=== PATIENT | female | born 1930 | race Caucasian/White ===

== ENCOUNTER 2017-04-17 17:34 | Observation (INO) | payer MEDICARE, MEDICAID ==
[~2017-04-17] VITALS: Ht 160 cm; Wt 72.1 kg
[~2017-04-17 17:34] MED LIST: AC500T PO; ATR20T PO; CLPD75T PO; CPR500T PO; IBP600T1 PO; NYST1POW15 TOP; POLY17PO23 PO; QTP25T PO
[2017-04-17 18:04] LABS: BASOPHILS % (AUTO) 0 % (0-10); EOSINOPHILS # (AUTO) 0.1 10^3/uL (0.0-0.3); EOSINOPHILS % (AUTO) 2 % (0-10); LYMPHOCYTES # (AUTO) 1.6 X 10^3 (1.0-4.0); LYMPHOCYTES % (AUTO) 23 % (12-44); MEAN CORPUSCULAR HEMOGLOBIN 29 PG (25-34); MEAN CORPUSCULAR HGB CONC 33 G/DL (32-36); MEAN CORPUSCULAR VOLUME 90 FL (80-99); MEAN PLATELET VOLUME 10.3 FL (7.4-10.4); MONOCYTES # (AUTO) 0.7 X 10^3 (0.0-1.0); MONOCYTES % (AUTO) 10 % (0-12); NEUTROPHILS # (AUTO) 4.7 X 10^3 (1.8-7.8); NEUTROPHILS % (AUTO) 66 % (42-75); PLATELET COUNT 276 10^3/uL (130-400); RED BLOOD COUNT 4.27 10^6/uL (4.35-5.85); WHITE BLOOD COUNT 7.1 10^3/uL (4.3-11.0)
[2017-04-17 18:17] LABS: INR 1.1 (0.8-1.4); PROTHROMBIN TIME PATIENT 13.6 SEC (12.2-14.7)
[2017-04-17 18:25] LABS: ALANINE AMINOTRANSFERASE 12 U/L (0-55); ALBUMIN 3.9 GM/DL (3.2-4.5); ANION GAP 8 MMOL/L (5-14); ASPARTATE AMINO TRANSFERASE 15 U/L (5-34); BILIRUBIN,TOTAL 0.3 MG/DL (0.1-1.0); BLOOD UREA NITROGEN 8 MG/DL (7-18); BUN/CREATININE RATIO 11; CALCIUM 8.9 MG/DL (8.5-10.1); CARBON DIOXIDE 27 MMOL/L (21-32); CHLORIDE 107 MMOL/L (98-107); CREATININE SERUM 0.71 MG/DL (0.60-1.30); GFR ESTIMATED > 60; GLUCOSE 119 MG/DL (70-105); POTASSIUM 3.7 MMOL/L (3.6-5.0); SODIUM 142 MMOL/L (135-145)
--- NOTE | 2017-04-17 18:37 | Diagnostic Imaging Report ---
PROCEDURE: CT head and CT cervical spine without contrast. TECHNIQUE: Multiple contiguous axial images were obtained through the brain and cervical spine without the use of intravenous contrast. Sagittal and coronal reformations through the cervical spine were then performed. INDICATION: Fall, head and neck pain. COMPARISON: Head CT compared 03/04/2012, no prior cervical imaging. FINDINGS: CT HEAD: There is a small right parafalcine hyperdense acute appearing subdural hematoma measuring only 4.6 mm in transverse thickness. It can be seen on images 20 through 24. No resultant mass effect or shift. There was no other site of intracranial hemorrhage. There is some chronic atrophy and periventricular white matter small vessel sequelae which are stable. There is opacification of multiple bilateral mastoid air cells as well as likely some fluid and/or debris within the bilateral middle ear cavities. No visualized temporal bone or calvarial fractures found. This is presumed inflammatory. Correlate clinically as underlying otomastoiditis could not be excluded. There is a lobular mucous retention cyst in the right maxillary sinus. There is no paranasal sinus air-fluid level. No findings of focal or generalized cerebral edema. There is no evidence for elevation of the intracranial pressures. The basilar cisterns are patent. CT CERVICAL SPINE: Reconstruction views revealed normal cervical body heights aligned anatomically. No fracture or dislocation. No acute endplate irregularity. There is no paravertebral hemorrhage. There are degenerative changes to the discs, endplates and facets throughout the cervical spine on a chronic basis. IMPRESSION: CT HEAD: A shallow right parafalcine subdural hematoma without a resultant mass effect. No other site of hemorrhage. Opacification of bilateral mastoid air cells and middle ear cavities with small mucus retention cyst in the right maxillary sinus. No appreciable fracture. CT CERVICAL SPINE: Degenerative changes but no fracture or dislocation. Results phoned to the emergency room. Dictated by: Dictated on workstation # [id number]
[2017-04-17 18:41] LABS: BILIRUBIN,URINE NEGATIVE (NEGATIVE); KETONES,URINE NEGATIVE (NEGATIVE); LEUKOCYTE ESTERASE ,URINE NEGATIVE (NEGATIVE); NITRITE,URINE NEGATIVE (NEGATIVE); PH,URINE 6 (5-9); PROTEIN,URINE NEGATIVE (NEGATIVE); UROBILINOGEN,URINE NORMAL (NORMAL)
[2017-04-17 18:47] LABS: SQUAMOUS EPITHELIAL CELL,UR RARE /HPF
--- NOTE | 2017-04-17 18:51 | Diagnostic Imaging Report ---
INDICATION: Fall, pain. FINDINGS: No fracture, dislocation, or acute articular incongruity is demonstrated. IMPRESSION: No acute bony abnormality. Dictated by: Dictated on workstation # [id number]
--- NOTE | 2017-04-17 18:54 | ED Trauma-Multisystem ---
General Chief Complaint: Trauma-Non Activation Stated Complaint: FALL Nursing Triage Note: PT WAS AT [facility] AND FELL AND HIT HER HEAD PER EMS STAFF. (ALEIDA BROWN) History of Present Illness Time Seen by Provider: 17:30 Initial Comments patient brought by EMS from [facility], [facility]. Evaluation for fall at [facility], she was walking in the [place] when she fell and hit the occipital area on the wall. [facility] staff reports hematoma to this area, no hematoma noted upon arrival to the emergency department. shelter reports no loss of consciousness. However there was an indentation into the wall. The patient had known dementia and the family and care facility had noticed a decline over the last 2 weeks. She had a smaller fall to her knees approximately 2 weeks ago. Location Injury Occurred: [facility] Occurred: Just Prior to Arrival Severity: Mild Pain/Injury Location: Head (occipital), Lower Extremity (left ankle), Neck ( minimal pain) Method of Injury: Fall Loss of Consciousness: No Loss of Consciousness Associated Symptoms (Fall): Denies Symptoms, Confusion (family reports compatible with her dementia), No Headache, No Nausea/Vomiting, No Seizures, No Slurred Speech, No Vision Changes (ALEIDA BROWN) Allergies and Home Medications Allergies Coded Allergies: No Known Drug Allergies (Unverified , 03/02/12) Home Medications Acetaminophen 500 Mg Tablet, 1,000 MG PO Q6H PRN for PAIN-MILD, (Reported) TAKES 2 (500MG) TABLETS Calcium Carbonate/Vitamin D3 1 Each Capsule, 1 CAP PO DAILY, (Reported) Cholecalciferol (Vitamin D3) 1,000 Unit Tablet, 2,000 UNIT PO DAILY, (Reported) TAKES 2 (1000 UNIT) TABLETS Citalopram Hydrobromide 20 Mg Tablet, 20 MG PO DAILY, (Reported) Clopidogrel Bisulfate 75 Mg Tablet, 75 MG PO DAILY, (Reported) Cyanocobalamin (Vitamin B-12) 500 Mcg Tablet, 500 MCG PO DAILY, (Reported) Dextromethorphan HBr 15 Mg/5 Ml Liquid, 10 ML PO Q4H PRN for COUGH, (Reported) Fluticasone Propionate 16 Gm [place].susp, 1 SPRAY NS BID, (Reported) Guaifenesin 400 Mg Tablet, 400 MG PO Q4H PRN for CONGESTION, (Reported) Lorazepam 0.5 Mg Tablet, 0.5 MG PO DAILY, (Reported) Losartan Potassium 50 Mg Tablet, 50 MG PO DAILY for 30 Days, #30 Ref 6 Prescribed by: NICOLE TSANG on 04/18/17 1117 Melatonin 3 Mg Tablet, 6 MG PO HS, (Reported) TAKES 2 (3MG) TABLETS Memantine HCl 10 Mg Tablet, 10 MG PO BID, (Reported) Pantoprazole Sodium 20 Mg Tablet.dr, 20 MG PO DAILY, (Reported) Risperidone 0.25 Mg Tablet, 0.25 MG PO HS, (Reported) Risperidone 0.5 Mg Tablet, 0.5 MG PO Q6H PRN for BEHAVIOR, (Reported) Rivastigmine 9.5 Mg Patch, 9.5 MG TD DAILY, (Reported) Constitutional: no symptoms reported, see HPI Eyes: No Symptoms Reported, See HPI Ears: No Symptoms Reported, See HPI Nose: No Symptoms Reported, See HPI Mouth: No Symptoms Reported, See HPI Throat: No Symptoms to Report, See HPI Respiratory: no symptoms reported, see HPI Cardiovascular: No Symptoms Reported, See HPI Gastrointestinal: no symptoms reported, see HPI Genitourinary: no symptoms reported, see HPI Musculoskeletal: see HPI, joint pain (medial aspect left ankle) Skin: see HPI, other (superficial skin tear right elbow) Psychiatric/Neurological: No Symptoms Reported, See HPI (ALEIDA BROWN) All Other Systems Reviewed Negative Unless Noted: Yes (ALEIDA BROWN) Past Isrbuln-Qmhspj-Kwuugw Hx Patient Social History Alcohol Use: Denies Use Recreational Drug Use: No Smoking Status: Never a Smoker 2nd Hand Smoke Exposure: No Recent Foreign Travel: No Contact w/Someone Who Travel: No Recent Infectious Disease Expo: No Recent Hopitalizations: No (ALEIDA BROWN) Seasonal Allergies Seasonal Allergies: No (ALEIDA BROWN) Surgeries Surgeries: Hysterectomy (ALEIDA BROWN) Respiratory Hx Respiratory Disorders: No (ALEIDA BROWN) Cardiovascular Hx Cardiac Disorders: No Cardiac Disorders: Hypertension (ALEIDA BROWN) Neurological Hx Neurological Disorders: Yes Neurological Disorders: Dementia (ALEIDA BROWN) Reproductive System Hx Reproductive Disorders: Yes (ALEIDA BROWN) Genitourinary Hx Genitourinary Disorders: Yes (ALEIDA BROWN) Gastrointestinal Hx Gastrointestinal Disorders: No (ALEIDA BROWN) Musculoskeletal Hx Musculoskeletal Disorders: No (ALEIDA BROWN) Endocrine Hx Endocrine Disorders: No (ALEIDA BROWN) HEENT HX ENT Disorders: No (ALEIDA BROWN) Psychosocial Hx Psychiatric Problems: No Behavioral Health Disorders: Anxiety, Depression (ALEIDA BROWN) Blood Transfusions Hx Blood Disorders: No (ALEIDA BROWN) Reviewed Nursing Assessment Reviewed/Agree w Nursing PMH: Yes (ALEIDA BROWN) Physical Exam Vital Signs Vital Sign - Last 12Hours 04/17/17 17:34 Temp 98.1 Pulse 70 Resp 14 B/P (MAP) 179/90 Pulse Ox 95 O2 Delivery Room Air Temperature (Fahrenheit): 98.1 General Appearance: No Apparent Distress, WD/WN Head: No Evidence of Injury, Tenderness (occipital, mild, no hematoma or bleeding noted), No Active Bleeding, No Dominguez's Sign, No Contusions, No Ecchymosis, No Swelling Eyes: Bilateral Eye EOMI, Bilateral Eye Normal Inspection, Bilateral Eye PERRL Ears, Nose, Throat: Hearing Grossly Normal, No Evidence of ENT Injury, No Dental Injury Neck: Full Range of Motion, Normal Inspection, Supple, Tender Lateral ( bilaterally) Cardiovascular: Regular Rate, Rhythm, No Edema, No Murmur, Normal Peripheral Pulses Respiratory: Chest Non Tender, Lungs Clear, Normal Breath Sounds Gastrointestinal: Normal Bowel Sounds, Soft Back: Normal Inspection, No Vertebral Tenderness Extremity: Normal Capillary Refill, Normal Inspection, Normal Range of Motion, No Pedal Edema, Other (pelvis stable, full range of motion to the hips, knees and ankles. Trace pain over medial malleolus on the left ankle. No pain with inversion or eversion of the left ankle. No swelling or ecchymosis noted to left ankle.) Neurologic/Psychiatric: Alert, No Oriented x3, No Motor/Sensory Deficits, Normal Mood/Affect (compliant with all request, able to complete simple instructions. No agitation or anxiety noted) Skin: Normal Color, Warm/Dry, Other (superficial skin tear to the right elbow.) (ALEIDA BROWN) [place] Score Best Eye Response ([place]): (4) Open Spontaneously Best Verbal Response ([place]): (4) Confused Conversation Best Motor Response (Brenda): (6) Obeys Commands [place] Total: 14 (ALEIDA BROWN) Progress/Results/Core Measures Results/Orders Lab Results Laboratory Tests Test 04/17/17 17:51 04/17/17 18:34 Range/Units White Blood Count 7.1 4.3-11.0 10^3/uL Red Blood Count 4.27 L 4.35-5.85 10^6/uL Hemoglobin 12.5 11.5-16.0 G/DL Hematocrit 38 35-52 % Mean Corpuscular Volume 90 80-99 FL Mean Corpuscular Hemoglobin 29 25-34 PG Mean Corpuscular Hemoglobin Concent 33 32-36 G/DL Red Cell Distribution Width 14.0 10.0-14.5 % Platelet Count 276 130-400 10^3/uL Mean Platelet Volume 10.3 7.4-10.4 FL Neutrophils (%) (Auto) 66 42-75 % Lymphocytes (%) (Auto) 23 12-44 % Monocytes (%) (Auto) 10 0-12 % Eosinophils (%) (Auto) 2 0-10 % Basophils (%) (Auto) 0 0-10 % Neutrophils # (Auto) 4.7 1.8-7.8 X 10^3 Lymphocytes # (Auto) 1.6 1.0-4.0 X 10^3 Monocytes # (Auto) 0.7 0.0-1.0 X 10^3 Eosinophils # (Auto) 0.1 0.0-0.3 10^3/uL Basophils # (Auto) 0.0 0.0-0.1 10^3/uL Prothrombin Time 13.6 12.2-14.7 SEC INR Comment 1.1 0.8-1.4 Activated Partial Thromboplast Time 25 24-35 SEC Sodium Level 142 135-145 MMOL/L Potassium Level 3.7 3.6-5.0 MMOL/L Chloride Level 107 98-107 MMOL/L Carbon Dioxide Level 27 21-32 MMOL/L Anion Gap 8 5-14 MMOL/L Blood Urea Nitrogen 8 7-18 MG/DL Creatinine 0.71 0.60-1.30 MG/DL Estimat Glomerular Filtration Rate > 60 BUN/Creatinine Ratio 11 Glucose Level 119 H 70-105 MG/DL Calcium Level 8.9 8.5-10.1 MG/DL Total Bilirubin 0.3 0.1-1.0 MG/DL Aspartate Amino Transf (AST/SGOT) 15 5-34 U/L Alanine Aminotransferase (ALT/SGPT) 12 0-55 U/L Alkaline Phosphatase 59 40-136 U/L Total Protein 7.0 6.4-8.2 GM/DL Albumin 3.9 3.2-4.5 GM/DL Urine Color YELLOW Urine Clarity CLEAR Urine pH 6 5-9 Urine Specific [place] 1.015 L 1.016-1.022 Urine Protein NEGATIVE NEGATIVE Urine Glucose (UA) NEGATIVE NEGATIVE Urine Ketones NEGATIVE NEGATIVE Urine Nitrite NEGATIVE NEGATIVE Urine Bilirubin NEGATIVE NEGATIVE Urine Urobilinogen NORMAL NORMAL MG/DL Urine Leukocyte Esterase NEGATIVE NEGATIVE Urine RBC (Auto) NEGATIVE NEGATIVE Urine RBC NONE /HPF Urine WBC NONE /HPF Urine Squamous Epithelial Cells RARE /HPF Urine Crystals NONE /LPF Urine Bacteria NONE /HPF Urine Casts NONE /LPF Urine Mucus NEGATIVE /LPF Urine Culture Indicated NO My Orders Orders - ALEIDA BROWN Ct Head/Cervical Spine Wo (04/17/17 17:44) Ankle, Left, 3 Views (04/17/17 17:44) Cbc With Automated Diff (04/17/17 17:44) Comprehensive Metabolic Panel (04/17/17 17:44) Protime With Inr (04/17/17 17:44) Partial Thromboplastin Time (04/17/17 17:44) Ua Culture If Indicated (04/17/17 17:44) Saline Lock/Iv-Start (04/17/17 19:06) Ns Iv 1000 Ml (Sodium Chloride 0.9%) (04/17/17 19:06) Labetalol Injection (Normodyne Injection (04/17/17 19:15) Ekg Tracing (04/17/17 19:14) Acetaminophen Tablet/Caplet (Tylenol T (04/17/17 19:31) Chest 1 View, Ap/Pa Only (04/17/17 19:46) Hydralazine Injection (Apresoline Inject (04/17/17 20:00) Medications Given in ED Current Medications Medications Dose Ordered Sig/Darwin Route Start Time Stop Time Status Last Admin Dose Admin Hydralazine HCl 20 mg ONCE ONCE IV 04/17/17 20:00 04/17/17 20:01 DC 04/17/17 20:00 20 MG Labetalol HCl 10 mg ONCE ONCE IV 04/17/17 19:15 04/17/17 19:16 DC 04/17/17 19:16 10 MG Sodium Chloride 1,000 ml @ 50 mls/hr Q20H ONCE IV 04/17/17 19:06 04/18/17 15:05 04/17/17 19:17 50 MLS/HR Vital Signs/I&O Vital Sign - Last 12Hours 04/17/17 17:34 Temp 98.1 Pulse 70 Resp 14 B/P (MAP) 179/90 Pulse Ox 95 O2 Delivery Room Air Blood Pressure Mean: 119 (ALEIDA BROWN) Progress Note : Time: 17:30 Progress Note Initial evaluation completed. Recommended CT head and cervical spine, labs, and x-ray of the left ankle. [address] and assessment with Dr. Henao. Agreed with plan of care. 1839 family and POA present discussed findings of CT results, discussed options and care. Options were reviewed with risks and benefits of conservative care versus surgical evacuation of the hematoma. The family wishes to continue with conservative, supportive care at this point. Discussed at length with the patient's daughter son and POA about her CODE STATUS, she is currently a full code. They wish for this to remain in place. Will discuss it at more length tonight and with Dr. Mcneill tomorrow. 1914 B/P 180s/90s, IV NS at 50 ml/hr; Labetalol 10 mg IV, monitor b/p Q 15 min. Patient has reported headache to family, Tylenol 650 mg po. 1919 discussed patient's assessment and CT findings with Dr. Mcneill agreed for admission to cardiac stepdown. 1939 blood pressure continues in the 170s/lower 90s. Hydralazine 20 mg IV 1. 1999 blood pressure 150s/ 70s. He denies headache at present time. All questions answered by family and plans for admission completed. (ALEIDA BROWN) Progress Note : Progress Note Admission to trauma services not indicated as surgical options do not want to be pursued by family and patient has advanced Alzheimer's disease. Patient to be admitted by primary care physician. (SHARITA OSCAR MD) ECG Initial ECG Impression Date: Apr 17, 2017 Initial ECG Impression Time: 19:24 Initial ECG Rate: 70 Initial ECG Rhythm: Normal Sinus (with left ventricular hypertrophy and borderline prolonged QT interval) Initial ECG Intervals: Normal Initial ECG Intervals NM 160, QRS 8100, QTC 452, QTc 488. [place] P 9, QRS -3, T 59. Initial ECG Impression: Normal Initial ECG Comparisson: No Previous ECG Available, Unchanged Comment With Dr. Henao agreed with interpretation (ALEIDA BROWN) Diagnostic Imaging Diagonstic Imaging: CT Plain Films/CT/US/NM/MRI: c-spine, head Comments NAME: RUPALI BOWDEN [facility] REC#: [id number] PT STATUS: REG ER : 1930 PHYSICIAN: ALEIDA BROWN ADMIT DATE: 04/17/17/ER Draft Date of Exam:04/17/17 CT HEAD/CERVICAL SPINE WO PROCEDURE: CT head and CT cervical spine without contrast. TECHNIQUE: Multiple contiguous axial images were obtained through the brain and cervical spine without the use of intravenous contrast. Sagittal and coronal reformations through the cervical spine were then performed. INDICATION: Fall, head and neck pain. COMPARISON: Head CT compared 03/04/2012, no prior cervical imaging. FINDINGS: CT HEAD: There is a small right parafalcine hyperdense acute appearing subdural hematoma measuring only 4.6 mm in transverse thickness. It can be seen on images 20 through 24. No resultant mass effect or shift. There was no other site of intracranial hemorrhage. There is some chronic atrophy and periventricular white matter small vessel sequelae which are stable. There is opacification of multiple bilateral mastoid air cells as well as likely some fluid and/or debris within the bilateral middle ear cavities. No visualized temporal bone or calvarial fractures found. This is presumed inflammatory. Correlate clinically as underlying otomastoiditis could not be excluded. There is a lobular mucous retention cyst in the right maxillary sinus. There is no paranasal sinus air-fluid level. No findings of focal or generalized cerebral edema. There is no evidence for elevation of the intracranial pressures. The basilar cisterns are patent. CT CERVICAL SPINE: Reconstruction views revealed normal cervical body heights aligned anatomically. No fracture or dislocation. No acute endplate irregularity. There is no paravertebral hemorrhage. There are degenerative changes to the discs, endplates and facets throughout the cervical spine on a chronic basis. IMPRESSION: CT HEAD: A shallow right parafalcine subdural hematoma without a resultant mass effect. No other site of hemorrhage. Opacification of bilateral mastoid air cells and middle ear cavities with small mucus retention cyst in the right maxillary sinus. No appreciable fracture. CT CERVICAL SPINE: Degenerative changes but no fracture or dislocation. Results phoned to the emergency room. Dictated on workstation # [id number] Dict: 04/17/17 181 Trans: 04/17/17 183 [id number] Interpreted by: CLAY FLOOD Electronically signed by: Reviewed: Discussed w/Radiologist, Reviewed/Discussed (with Dr. Henao) Diagonstic Imaging: Xray Plain Films/CT/US/NM/MRI: ankle Comments NAME: RUPALI BOWDEN [facility] REC#: [id number] PT STATUS: REG ER : 1930 PHYSICIAN: ALEIDA BROWN ADMIT DATE: 04/17/17/ER Signed Date of Exam: 04/17/17 ANKLE, LEFT, 3 VIEWS INDICATION: Fall, pain. FINDINGS: No fracture, dislocation, or acute articular incongruity is demonstrated. IMPRESSION: No acute bony abnormality. Dictated by: Dictated on workstation # [id number] Dict: 04/17/17 184 Trans: 04/17/171855 Interpreted by: CLAY FLOOD Electronically signed by: CLAY FLOOD 04/17/171855 Diagonstic Imaging: Xray Plain Films/CT/US/NM/MRI: chest Comments NAME: RUPALI BOWDEN [employer] REC#: [id number] PT STATUS: REG ER : 1930 PHYSICIAN: ALEIDA BROWN ADMIT DATE: 04/17/17/ER Draft Date of Exam:04/17/17 CHEST 1 VIEW, AP/PA ONLY INDICATION: Shortness of air. COMPARISON: March 02, 2012. TECHNIQUE: Single frontal radiograph of the chest dated April 17, 2017. FINDINGS: The cardiac silhouette is enlarged. No significant pulmonary vascular congestion. Calcified granulomas are again identified overlying the right mid lung. The lungs otherwise appear clear. Stable elevation of the right hemidiaphragm. No significant pleural effusion. No pneumothorax. No acute osseous abnormality. IMPRESSION: Mild cardiomegaly without overt congestive heart failure. Stable evidence of chronic granulomatous disease. Dictated on workstation # [id number] Dict: 04/17/172000 Trans: 04/17/172008 [id number] Interpreted by: ROSA JUNIOR MD Electronically signed by: Reviewed: Reviewed by Me (ALEIDA BROWN) Departure Impression Impression: Primary Impression: Subdural hematoma, acute Additional Impressions: Fall Qualified Codes: W19.XXXA - Unspecified fall, initial encounter Unsteady gait Dementia Qualified Codes: G30.1 - Alzheimer's disease with late onset; F02.80 - Dementia in other diseases classified elsewhere without behavioral disturbance Disposition: ADMITTED INPATIENT Condition: Stable Decision to Admit Reason: Admit from ER (General) (ALEIDA BROWN) Departure-Patient Inst. Decision time for Depature: 19:15 (ALEIDA BROWN) Referrals: BRADEN MCNEILL MD (PCP/Family) Primary Care Physician Scripts Losartan Potassium (Losartan Potassium) 50 Mg Tablet 50 MG PO DAILY for 30 Days, #30 TAB 6 Refills Prov: BRADEN MCNEILL MD 04/18/17 Copy Copies To 1: BRADEN MCNEILL MD, AMY ARNP Apr 17, 2017 18:54 SHARITA OSCAR MD Apr 19, 2017 00:35
[2017-04-17] MEDS ORDERED: NS IV 1000 ML 1,000 ML IV ONE (19:06)
[2017-04-17] MEDS ORDERED: LABETALOL HCL 20 MG/4 ML VIAL IV ONE (19:15)
[2017-04-17] MEDS ORDERED: ACETAMINOPHEN 325 MG TABLET/CAPLET (TYLENOL) PO STA (19:31)
[2017-04-17] MEDS ORDERED: hydrALAZINE (APESOLINE) 20 MG/ML VIAL IV ONE (20:00)
--- NOTE | 2017-04-17 20:09 | Diagnostic Imaging Report ---
INDICATION: Shortness of air. COMPARISON: March 02, 2012. TECHNIQUE: Single frontal radiograph of the chest dated April 17, 2017. FINDINGS: The cardiac silhouette is enlarged. No significant pulmonary vascular congestion. Calcified granulomas are again identified overlying the right mid lung. The lungs otherwise appear clear. Stable elevation of the right hemidiaphragm. No significant pleural effusion. No pneumothorax. No acute osseous abnormality. IMPRESSION: Mild cardiomegaly without overt congestive heart failure. Stable evidence of chronic granulomatous disease. Dictated by: Dictated on workstation # [id number]
[2017-04-17 21:00] VITALS: BP 126/56
[2017-04-17] MEDS ORDERED: NS IV 1000 ML 1,000 ML IV SCH (21:15)
[2017-04-17 21:30] VITALS: BP 135/61
[2017-04-17] MEDS ORDERED: LABETALOL HCL 20 MG/4 ML VIAL IV PRN ×2 (21:30)
[2017-04-17] MEDS ORDERED: ACETAMINOPHEN 325 MG TABLET/CAPLET (TYLENOL) PO PRN (21:30)
[2017-04-17 22:00] VITALS: BP 141/68
[2017-04-17 22:30] VITALS: BP 140/70
[2017-04-17 23:00] VITALS: BP 155/80
[2017-04-18 00:43] VITALS: BP 140/81
[2017-04-18 04:00] VITALS: BP 167/72
[2017-04-18 04:43] LABS: BASOPHILS % (AUTO) 0 % (0-10); EOSINOPHILS # (AUTO) 0.1 10^3/uL (0.0-0.3); EOSINOPHILS % (AUTO) 1 % (0-10); LYMPHOCYTES # (AUTO) 1.5 X 10^3 (1.0-4.0); LYMPHOCYTES % (AUTO) 16 % (12-44); MEAN CORPUSCULAR HEMOGLOBIN 29 PG (25-34); MEAN CORPUSCULAR HGB CONC 32 G/DL (32-36); MEAN CORPUSCULAR VOLUME 90 FL (80-99); MEAN PLATELET VOLUME 10.9 FL (7.4-10.4); MONOCYTES # (AUTO) 0.9 X 10^3 (0.0-1.0); MONOCYTES % (AUTO) 10 % (0-12); NEUTROPHILS # (AUTO) 6.9 X 10^3 (1.8-7.8); NEUTROPHILS % (AUTO) 73 % (42-75); PLATELET COUNT 292 10^3/uL (130-400); RED BLOOD COUNT 4.26 10^6/uL (4.35-5.85); RED CELL DISTRIBUTION WIDTH 14.1 % (10.0-14.5); WHITE BLOOD COUNT 9.5 10^3/uL (4.3-11.0)
[2017-04-18 04:56] LABS: ALANINE AMINOTRANSFERASE 12 U/L (0-55); ALBUMIN 3.8 GM/DL (3.2-4.5); ANION GAP 12 MMOL/L (5-14); ASPARTATE AMINO TRANSFERASE 15 U/L (5-34); BILIRUBIN,TOTAL 0.5 MG/DL (0.1-1.0); BLOOD UREA NITROGEN 7 MG/DL (7-18); BUN/CREATININE RATIO 10; CALCIUM 8.6 MG/DL (8.5-10.1); CARBON DIOXIDE 21 MMOL/L (21-32); CHLORIDE 108 MMOL/L (98-107); CREATININE SERUM 0.68 MG/DL (0.60-1.30); GFR ESTIMATED > 60; GLUCOSE 164 MG/DL (70-105); POTASSIUM 3.4 MMOL/L (3.6-5.0); SODIUM 141 MMOL/L (135-145); TOTAL PROTEIN 6.6 GM/DL (6.4-8.2)
[2017-04-18 07:55] VITALS: BP 165/77
[2017-04-18] MEDS ORDERED: IOHEXOL 350 MG/ML 100 ML (OMNIPAQUE 350) VIAL IV ONE (08:00)
[2017-04-18] MEDS ORDERED: NS 100 ML (IVPB) BAG IV ONE (08:00)
[2017-04-18] MEDS ORDERED: CATHETER FLUSH 10 ML SYR IV PRN (08:15)
[2017-04-18] MEDS ORDERED: hydrALAZINE (APESOLINE) 20 MG/ML VIAL IV PRN (08:15)
[2017-04-18] MEDS ORDERED: RISP0.5T3 PO (08:29)
[2017-04-18] MEDS ORDERED: CALC1CAP21 PO (08:29)
[2017-04-18] MEDS ORDERED: FLUT16SP22 NS (08:29)
[2017-04-18] MEDS ORDERED: RISP0.253 PO (08:29)
[2017-04-18] MEDS ORDERED: DEXT15LI5 PO (08:29)
[2017-04-18] MEDS ORDERED: CLOP75TA28 PO (08:29)
[2017-04-18] MEDS ORDERED: CHOL10003 PO (08:29)
[2017-04-18] MEDS ORDERED: MEMA10TA22 PO (08:29)
[2017-04-18] MEDS ORDERED: GUAI400T71 PO (08:29)
[2017-04-18] MEDS ORDERED: MELA1TAB27 PO (08:29)
[2017-04-18] MEDS ORDERED: CITA20TA7 PO (08:29)
[2017-04-18] MEDS ORDERED: PANT20TA3 PO (08:29)
[2017-04-18] MEDS ORDERED: DEXT1CAP3 PO (08:29)
[2017-04-18] MEDS ORDERED: RIVA1PAT3 TD (08:29)
[2017-04-18] MEDS ORDERED: LORA0.5T PO (08:29)
[2017-04-18] MEDS ORDERED: CYAN500T2 PO (08:29)
[2017-04-18 08:30] VITALS: BP 169/75
[2017-04-18] MEDS ORDERED: MELA3TAB PO (08:32)
--- NOTE | 2017-04-18 09:06 | Diagnostic Imaging Report ---
PROCEDURE: CT angiography of the head with and without contrast. TECHNIQUE: Noncontrast CT of the head was obtained. Subsequently, after intravenous administration of contrast, thin section axial CT angiography of the head was performed. Source data was reformatted into multiple MIP reformats. Delayed postcontrast acquisition of the head was also acquired. INDICATION: Subdural hematoma. COMPARISON: 04/17/2017. 80 mL Omnipaque 350 administered intravenously. FINDINGS: The unenhanced phase demonstrates a right peripheral sign subdural hematoma similar to the previous study with maximum thickness of 4 mm and anterior/ posterior extension of 4.5 cm, located just above the corpus callosum. There are no other sites of hemorrhage. The brain parenchyma demonstrate however periventricular and deep white hypodensities compatible with chronic microvascular ischemic changes. There are no enhancing masses identified on the parenchymal phase images seen. The left vertebral artery is dominant with both vertebral arteries in the posterior fossa patent. The basilar artery is patent. There is a well-formed posterior communicating artery on the left side with origin of the left [employer]PER[employer]. The distal aspect of the basilar artery essentially continues as the right [employer] which is also patent. In the anterior circulation the internal carotid arteries bilaterally are patent. There is prominent atherosclerotic plaque in the cavernous segment of the internal carotid artery without high-grade stenosis or occlusion suggested. The MCA and the DALILA arteries are patent. IMPRESSION: 1. Stable small subdural hematoma along the falx cerebri. 2. There is no high-grade stenosis, occlusion, or aneurysm seen in the major central intracranial arteries. Dictated by: Dictated on workstation # [id number]
--- NOTE | 2017-04-18 09:18 | History & Physicial ---
History of Present Illness History of Present Illness Reason for visit/HPI PT IS AN 87 Y/O FEMALE WHO IS KNOWN TO ME FROM CLINIC. SHE PRESENTED TO THE EMERGENCY DEPARTMENT AFTER FALLING AT THE [facility]. 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 SHE WAS RECENTLY STARTED ON NUEDEXTA FOR PSEUDOBULBAR SYMPTOMS - HOWEVER SHE HAS RECENTLY HAD AN INCREASE IN HER BLOOD PRESSURE. SHE STARTED TO HAVE WEAKNESS, AND HAD A FALL YESTERDAY, HIT HER HEAD ON THE WALL , AND WAS BROUGHT TO THE EMERGENCY DEPARTMENT FOR FURTHER WORK-UP/EVALUATION. WHILE IN THE EMERGENCY DEPT, SHE WAS FOUND TO HAVE A SMALL SUBDURAL HEMATOMA AND BROUGHT IN FOR FURTHER IMAGING AND EVALUATION. Date of Admission Apr 17, 2017 at 20:06 Date Seen by Provider: Apr 18, 2017 Time Seen by Provider: 08:55 I consulted on this patient on 04/18/17 09:12 Attending Physician Braden Mcneill MD Admitting Physician Braden Mcneill MD Consult Allergies and Home Medications Allergies Coded Allergies: No Known Drug Allergies (Unverified , 03/02/12) Home Medications Acetaminophen 500 Mg Tablet, 1,000 MG PO Q6H PRN for PAIN-MILD, (Reported) TAKES 2 (500MG) TABLETS Calcium Carbonate/Vitamin D3 1 Each Capsule, 1 CAP PO DAILY, (Reported) Cholecalciferol (Vitamin D3) 1,000 Unit Tablet, 2,000 UNIT PO DAILY, (Reported) TAKES 2 (1000 UNIT) TABLETS Citalopram Hydrobromide 20 Mg Tablet, 20 MG PO DAILY, (Reported) Clopidogrel Bisulfate 75 Mg Tablet, 75 MG PO DAILY, (Reported) Cyanocobalamin (Vitamin B-12) 500 Mcg Tablet, 500 MCG PO DAILY, (Reported) Dextromethorphan HBr 15 Mg/5 Ml Liquid, 10 ML PO Q4H PRN for COUGH, (Reported) Dextromethorphan HBr/Quinidine 1 Each Capsule, 1 CAP PO BID, (Reported) Fluticasone Propionate 16 Gm [place].susp, 1 SPRAY NS BID, (Reported) Guaifenesin 400 Mg Tablet, 400 MG PO Q4H PRN for CONGESTION, (Reported) Lorazepam 0.5 Mg Tablet, 0.5 MG PO DAILY, (Reported) Melatonin 3 Mg Tablet, 6 MG PO HS, (Reported) TAKES 2 (3MG) TABLETS Memantine HCl 10 Mg Tablet, 10 MG PO BID, (Reported) Pantoprazole Sodium 20 Mg Tablet.dr, 20 MG PO DAILY, (Reported) Risperidone 0.25 Mg Tablet, 0.25 MG PO HS, (Reported) Risperidone 0.5 Mg Tablet, 0.5 MG PO Q6H PRN for BEHAVIOR, (Reported) Rivastigmine 9.5 Mg Patch, 9.5 MG TD DAILY, (Reported) Past Srvrbgm-[id number]-[id number] Hx Patient Social History Marrital Status: Number of Children: 3 Number of living children: 3 Living Status: PT LIVES AT [facility] Employed/Student: retired Alcohol Use: Denies Use Recreational Drug Use: No Smoking Status: Never a Smoker 2nd Hand Smoke Exposure: No Physical Abuse Screen: No Sexual Abuse: No Recent Foreign Travel: No Contact w/other who traveled: No Recent Hopitalizations: No Recent Infectious Disease Expo: No Immunizations Up To Date Date of Pneumonia Vaccine: Jul 18, 2016 Seasonal Allergies Seasonal Allergies: No Surgeries HX Surgeries: Yes Surgeries: Hysterectomy Respiratory Hx Respiratory Disorders: No Cardiovascular Hx Cardiovascular Disorders: Yes Cardiac Disorders: Hypertension Neurological Hx Neurological Disorders: Yes Neurological Disorders: Dementia Reproductive System : No Hx Reproductive Disorders: Yes Sexually Transmitted Disease: No HIV/AIDS: No Female Reproductive Disorders: Denies 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 Genitourinary Hx Genitourinary Disorders: Yes Genitourinary Disorders: UTI-Chronic (INTERMITTENT) Gastrointestinal Hx Gastrointestinal Disorders: No Musculoskeletal Hx Musculoskeletal Disorders: No Endocrine Hx Endocrine Disorders: No HEENT HX ENT Disorders: No Loss of Vision: Bilateral Hearing Impairment: Denies Cancer Hx Cancer: No Psychosocial Hx Psychiatric Problems: Yes Behavioral Health Disorders: Anxiety, Depression Integumentary HX Skin/Integumentary Disorder: No Blood Transfusions Hx Blood Disorders: No Adverse Reaction to a Blood Tr: No Reviewed Nursing Assessment Reviewed/Agree w Nursing PMH: Yes Family Medical History Significant Family History: Hypertension Constitutional: No chills, No fever, malaise, weakness EENTM: vision loss, No mouth pain, No mouth swelling, No throat pain, No throat swelling Respiratory: No cough, No dyspnea on exertion, No short of breath Cardiovascular: No chest pain, No edema, No palpitations Gastrointestinal: No abdominal pain, No constipation, No diarrhea, No loss of appetite, No nausea, No vomiting Genitourinary: no symptoms reported, No dysuria Musculoskeletal: muscle weakness Skin: no symptoms reported Psychiatric/Neurological: Anxiety, Depressed, Other (HALLUCINATIONS, VISUAL AND AUDITORY) All Other Systems Reviewed Negative Unless Noted: Yes Physical Exam Vital Signs Vital Sign - Last 12Hours 04/17/17 17:34 Temp 98.1 Pulse 70 Resp 14 B/P (MAP) 179/90 Pulse Ox 95 O2 Delivery Room Air Capillary Refill : Less Than 3 Seconds General Appearance: No Apparent Distress, WD/WN HEENT: Pharynx Normal Neck: Full Range of Motion, Supple Respiratory: Chest Non Tender, Lungs Clear, Normal Breath Sounds, No Accessory Muscle Use Cardiovascular: Regular Rate, Rhythm, No Edema, Normal Peripheral Pulses Gastrointestinal: Normal Bowel Sounds, No Organomegaly, No Pulsatile Mass, Non Tender, Soft Rectal: Deferred Back: No CVA Tenderness Extremity: Normal Capillary Refill, Normal Range of Motion, Non Tender, No Calf Tenderness, No Pedal Edema Neurologic/Psychiatric: Alert, Other (FLAT AFFECT) Skin: Normal Color, Warm/Dry Lymphatic: No Adenopathy Assessment/Plan Assessment and Plan SUBDURAL HEMATOMA FALLING EPISODES WEAKNESS HYPERTENSION LEWY BODY DEMENTIA PSYCHOSIS - SCHIZOPHRENIFORM SUBDURAL HEMATOMA - SYMPTOMS STABLE - REPEAT CT SCAN NEGATIVE. NO CHANGE IN SUPPORTIVE CARE. FALLING EPISODES WITH WEAKNESS - WILL START PHYSICAL THERAPY AT [facility]. HYPERTENSION - LIKELY DUE TO HER NEW MEDICATION - PT'S FAMILY HAS NOT NOTICED ANY IMPROVEMENT IN HER SYMPTOMS - I RECOMMEND PT TO STOP NUEDEXTA - MONITOR BLOOD PRESSURE - START ON [place] AT LOW DOSE. 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 PT DID NOT REQUIRE A TRAUMA CONSULT THERE WERE NOT ANY ACUTE FINDINGS TO NEED A TRAUMA CONSULT OR SURGICAL CONSULT. PT TO BE DISCHARGED BACK TO THE [facility] - THIS SHOULD SERVE SHORT STAY SUMMARY FAMILY HAS DECIDED PT TO BE DNR/DNI Problems: Admission Diagnosis SUBDURAL HEMATOMA FALLING EPISODES WEAKNESS HYPERTENSION LEWY BODY DEMENTIA PSYCHOSIS - SCHIZOPHRENIFORM Clinical Quality Measures DVT/VTE Risk/Contraindication: Risk Factor Score Per Nursin RFS Level Per Nursing on Admit: 3=High BRADEN MCNEILL MD Apr 18, 2017 09:17
[2017-04-18] MEDS ORDERED: LOSA50TA36 PO ×2 (09:28→11:17)
--- NOTE | 2017-04-18 09:29 | Discharge Inst-Complex ---
PDI Med Rec & Follow Up Appt. New Medications: Losartan Potassium (Losartan Potassium) 50 Mg Tablet 50 MG PO DAILY for 30 Days, #6 TAB Continued Medications: Acetaminophen (Tylenol) 500 Mg Tablet 1000 MG PO Q6H PRN for PAIN-MILD, TAB TAKES 2 (500MG) TABLETS Calcium Carbonate/Vitamin D3 (Calcium 600 + Vit D 400 Softgl) 1 Each Capsule 1 CAP PO DAILY, CAP Cholecalciferol (Vitamin D3) (Vitamin D3) 1,000 Unit Tablet 2000 UNIT PO DAILY, TAB TAKES 2 (1000 UNIT) TABLETS Citalopram Hydrobromide (Citalopram HBr) 20 Mg Tablet 20 MG PO DAILY, TAB Clopidogrel Bisulfate (Clopidogrel) 75 Mg Tablet 75 MG PO DAILY, TAB Cyanocobalamin (Vitamin B-12) (Vitamin B-12) 500 Mcg Tablet 500 MCG PO DAILY, TAB Dextromethorphan HBr (Tussin Cough) 15 Mg/5 Ml Liquid 10 ML PO Q4H PRN for COUGH, EA Fluticasone Propionate (Fluticasone Propionate) 16 Gm [place].susp 1 SPRAY NS BID, EA Guaifenesin (Guaifenesin) 400 Mg Tablet 400 MG PO Q4H PRN for CONGESTION, TAB Lorazepam (Lorazepam) 0.5 Mg Tablet 0.5 MG PO DAILY, TAB Melatonin (Melatonin) 3 Mg Tablet 6 MG PO HS, TAB TAKES 2 (3MG) TABLETS Memantine HCl (Memantine HCl) 10 Mg Tablet 10 MG PO BID, TAB Pantoprazole Sodium (Pantoprazole Sodium) 20 Mg Tablet.dr 20 MG PO DAILY, TAB Risperidone (Risperidone) 0.25 Mg Tablet 0.25 MG PO HS, TAB Risperidone (Risperidone) 0.5 Mg Tablet 0.5 MG PO Q6H PRN for BEHAVIOR, TAB Rivastigmine (Exelon) 9.5 Mg Patch 9.5 MG TD DAILY, PATCH Discontinued Medications: Dextromethorphan HBr/Quinidine (Nuedexta 20-10 mg Capsule) 1 Each Capsule 1 CAP PO BID, CAP Prescription: Transmitted to Pharmacy Activity, Diet and PDI Resume Normal Activity: Yes Discharge Diet: Regular Diet Drink 6-8 Glasses of Fluid/Day: Yes Driving Instructions: No Driving/Refer to [facility] Return to The Hospital For: ANY CONCERN FOR WORSENING ILLNESS OR RECURRENT INJURY Symptoms to Reoprt to : Fever Over 101 Degrees F, Pain/Pressure in Chest, Lightheadedness, Diarrhea(Persistant), Shortness of Breath For Problems or Questions: Contact Your Physician, Go to Emergency Room BRADEN MOELLER MD Apr 18, 2017 09:29
--- NOTE | 2017-04-18 09:30 | Discharge Inst-Skilled Nursing ---
Discharge Inst-Skilled NF Consult/Follow Up/Orders Skilled NF Admit to: [facility] Certification (SNF) I certify that SNF services are required to be given on an inpatient basis because of the above named patient's need for prison care on a continuing basis for the conditions(s) for which he/she was receiving inpatient hospital services prior to his/her transfer to the SNF. Nursing Home Facility Order: Nursing Services, Physical Therapy-Evaluate & Treat Discharge Diet: Regular Diet New & Resume Previous Orders Braden Mcneill Apr 18, 2017 09:30 BRADEN MCNEILL MD Apr 18, 2017 09:30
[2017-04-18] MEDS ORDERED: LABETALOL HCL 20 MG/4 ML VIAL IV PRN (10:00)
[2017-04-18 11:30] VITALS: BP 169/75
[2017-04-18 11:40] VITALS: BP 169/75
== END 2017-04-18 09:28 | disposition home or self-care (01) ==
LOC: EDUNIT# 17:34 → ER 17:35 → ICU 20:06 → UNDOADMOB 20:06 → ICU 20:42 → ENPENDDIS 04-18 10:00
PROVIDERS: ADMIT Family Medicine; ATTEND Family Medicine
DX: S06.5X0A Traumatic subdural hemorrhage without loss of consciousness, initial encounter (principal); G31.83 Neurocognitive disorder with Lewy bodies; F02.80 Dementia in other diseases classified elsewhere, unspecified severity, without behavioral disturbance, psychotic disturbance, mood disturbance, and anxiety; S51.011A Laceration without foreign body of right elbow, initial encounter; M47.812 Spondylosis without myelopathy or radiculopathy, cervical region; F25.9 Schizoaffective disorder, unspecified; R26.0 Ataxic gait; I10 Essential (primary) hypertension; J34.1 Cyst and mucocele of nose and nasal sinus; Z79.02 Long term (current) use of antithrombotics/antiplatelets; Z79.899 Other long term (current) drug therapy; W01.0XXA Fall on same level from slipping, tripping and stumbling without subsequent striking against object, initial encounter; Y92.128 Other place in nursing home as the place of occurrence of the external cause; Y99.8 Other external cause status
CPT/HCPCS: 36415; 70450; 70496; 71010; 72125; 73610; 80053; 81000; 85025; 85610; 85730; 93005; 96361; 96374; 96375; 99211

== ENCOUNTER 2018-01-02 19:22 | Emergency (ER) | payer MEDICARE, MEDICAID ==
[~2018-01-02] VITALS: Ht 160 cm; Wt 72.3 kg
[~2018-01-02 19:22] MED LIST changes: +CALC1CAP21 PO; +CHOL10003 PO; +CITA20TA7 PO; +CLOP75TA28 PO; +CYAN500T2 PO; +DEXT15LI5 PO; +DEXT1CAP3 PO; +FLUT16SP22 NS; +GUAI400T71 PO; +LORA0.5T PO; +LOSA50TA36 PO; +MELA1TAB27 PO; +MELA3TAB PO; +MEMA10TA22 PO; +PANT20TA3 PO; +RISP0.253 PO; +RISP0.5T3 PO; +RIVA1PAT3 TD
--- OUTSIDE RECORDS SUMMARY | 2018-01-02 19:31 | XMS REPORT | CCD ---
Author Author Allie Mcneill Organization Allie Mcneill MD, [facility] Address [address] [place] [address] Phone Care Team Providers Care Services Host Name Role Phone PP Unavailable CCM Unavailable Summary Purpose Interface Exchange Insurance Providers Payer name Policy type / Coverage type Covered democrat ID Effective Begin Date Effective End Date HUMANA CLAIMS Commercial Insurance [id number] Unknown Family history Daughter Diagnosis Age At Onset No Family Disease Entered N/A Son Diagnosis Age At Onset No Family Disease Entered N/A Sister Diagnosis Age At Onset No Family Disease Entered N/A Son Diagnosis Age At Onset No Family Disease Entered N/A Mother Diagnosis Age At Onset No Family Disease Entered N/A Son Diagnosis Age At Onset No Family Disease Entered N/A Daughter Diagnosis Age At Onset No Family Disease Entered N/A Brother Diagnosis Age At Onset Asthma Unknown Father Diagnosis Age At Onset No Family Disease Entered N/A Social History Social History Element Codes Description Effective Dates Living arrangements Unknown [facility] 12/21/2016 Marital status Unknown 03/21/2012 Number of children Unknown 5 03/21/[address]: 501782843 Nonsmoker 03/21/[address]: 504964842 Never drinks alcohol 03/21/2012 Allergies, Adverse Reactions, Alerts Allergies, Adverse Reactions, Alerts data not found Past Medical History Illness Codes Condition Status Onset Date Resolved Date Essential (primary) hypertension ICD-9: 401.1 ICD-10: I10 Active 04/25/2017 Unknown Mixed hyperlipidemia ICD-9: 272.2 ICD-10: E78.2 Active 09/21/2016 Unknown 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 ICD-10: F28 Active 04/25/2017 Unknown Major depressive disorder, recurrent, 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 ICD-10: F33.0 Active 06/21/2016 Unknown Dementia with Lewy bodies ICD-9: 331.82 ICD-10: G31.83 Active 04/16/2014 Unknown Pseudobulbar affect ICD-9: 310.81 ICD-10: F48.2 Active 03/22/2017 Unknown Encounter for immunization ICD-9: V04.81 ICD-10: Z23 Active 07/25/2012 Unknown Mixed hyperlipidemia ICD-9: 272.4 ICD-10: E78.2 Active 08/13/2014 Unknown Other hallucinations ICD-9: 780.1 ICD-10: R44.2 Active 03/21/2012 Unknown Encounter for immunization ICD-9: V03.82 ICD-10: Z23 Active 09/15/2015 Unknown DEMEN NOS 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 ICD-9: 294.20 Active 02/26/2014 Unknown HYPERLIPIDEMIA ICD-9: 272.4 Active 08/13/2014 Unknown LEWY BODY DEMENTIA ICD -9: 331.82 Active 04/16/2014 Unknown Psychosis ICD-9: 298.9 Active 06/11/2014 Unknown Ulcer of gingiva ICD-9 : 523.8 Active 04/16/2014 Unknown Oral aphthae ICD-9: 528.2 Active 03/12/2014 Unknown Shingles ICD-9: 053.9 Active 03/12/2014 Unknown Impacted cerumen of both ears ICD-9: 380.4 Active 02/26/2014 Unknown Weight loss ICD-9: 783.21 Active 02/26/2014 Unknown SENILE DELUSION ICD-9 : 290.20 Active 11/27/2013 Unknown Encounter for long-term (current) use of other medications ICD-9: V58.69 Active 07/07/2013 Unknown Hyperlipidemia Unknown Active 02/13/2013 Unknown Dehydration ICD-9: 276.51 Active 01/06/2013 Unknown Dysuria ICD-9: 788.1 Active 09/19/2012 Unknown Yeast infection of the skin ICD-9: 112.3 Active 09/19/2012 Unknown Candidiasis of breast ICD-9: 112.2 Active 08/08/2012 Unknown Dry skin ICD-9: 782.9 Active 08/08/2012 Unknown Seborrheic keratosis ICD-9: 702.19 Active 08/08/2012 Unknown VACCIN FOR INFLUENZA ICD-9: V04.81 Active 07/25/2012 Unknown Urinary frequency ICD- 9: 788.41 Active 04/05/2012 Unknown Anxiety Unknown Active 03/21/2012 Unknown Dementia Unknown Active 03/21/2012 Unknown Hallucinations ICD-9: 780.1 Active 03/21/2012 Unknown INSOMNIA IN OTHER DIS ICD-9: 327.01 Active 03/21/2012 Unknown Problems Condition Codes Effective Dates Condition Status Essential (primary) hypertension ICD-9: 401.1 ICD-10: I10 04/25/2017 Active Mixed hyperlipidemia ICD-9: 272.2 ICD-10: E78.2 09/21/2016 Active 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 ICD-10: F28 04/25/2017 Active Major depressive disorder, recurrent, 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 ICD-10: F33.0 06/21/2016 Active Dementia with Lewy bodies ICD-9: 331.82 ICD-10: G31.83 04/16/2014 Active Pseudobulbar affect ICD-9: 310.81 ICD-10: F48.2 03/22/2017 Active Encounter for immunization ICD-9: V04.81 ICD-10: Z23 07/25/2012 Active Mixed hyperlipidemia ICD-9: 272.4 ICD-10: E78.2 08/13/2014 Active Other hallucinations ICD-9: 780.1 ICD-10: R44.2 03/21/2012 Active Encounter for immunization ICD-9: V03.82 ICD-10: Z23 09/15/2015 Active DEMEN NOS 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 ICD-9: 294.20 02/26/2014 Active HYPERLIPIDEMIA ICD-9: 272.4 08/13/2014 Active LEWY BODY DEMENTIA ICD -9: 331.82 04/16/2014 Active Psychosis ICD-9: 298.9 06/11/2014 Active Ulcer of gingiva ICD-9 : 523.8 04/16/2014 Active Oral aphthae ICD-9: 528.2 03/12/2014 Active Shingles ICD-9: 053.9 03/12/2014 Active Impacted cerumen of both ears ICD-9: 380.4 02/26/2014 Active Weight loss ICD-9: 783.21 02/26/2014 Active SENILE DELUSION ICD-9 : 290.20 11/27/2013 Active Encounter for long-term (current) use of other medications ICD-9: V58.69 2012 Active Hyperlipidemia Unknown 02/13/2013 Active Dehydration ICD-9: 276.51 01/06/2013 Active Dysuria ICD-9: 788.1 09/19/2012 Active Yeast infection of the skin ICD-9: 112.3 09/19/2012 Active Candidiasis of breast ICD-9: 112.2 08/08/2012 Active Dry skin ICD-9: 782.9 08/08/2012 Active Seborrheic keratosis ICD-9: 702.19 08/08/2012 Active VACCIN FOR INFLUENZA ICD-9: V04.81 07/25/2012 Active Urinary frequency ICD- 9: 788.41 04/05/2012 Active Anxiety Unknown 03/21/2012 Active Dementia Unknown 03/21/2012 Active Hallucinations ICD-9: 780.1 03/21/2012 Active INSOMNIA IN OTHER DIS ICD-9: 327.01 03/21/2012 Active Medications Medication Codes Instructions Start Date Stop Date Status Fill Instructions Ativan 0.5 mg tablet RxNorm: 018179 1 Tablet(s) PO Q6 as needed and 1/2 Tablet PO Q2 as needed 11/22/2017 No Stop Date Active Exelon Patch 9.5 mg/24 hr transdermal RxNorm: 658100 APPLY ONE (1) PATCH ONCE DAILY. 11/12/2017 No Stop Date Active losartan 50 mg tablet RxNorm: 487847 TAKE 1 TABLET BY MOUTH EVERY DAY 11/05/2017 06/02/2018 Active Generic For:*COZAAR 50MG 11/02/2017 2:22:04 PM Exelon Patch 9.5 mg/24 hr transdermal RxNorm: 373315 APPLY ONE (1) PATCH ONCE DAILY. 10/19/2017 11/11/2017 Inactive Depakote 500 mg tablet,delayed release RxNorm: 1089535 1 Tablet(s) PO daily 10/15/2017 10/09/2018 Active Protonix 20 mg tablet,delayed release RxNorm: 120192 TAKE 1 TABLET BY MOUTH DAILY 08/06/2017 03/03/2018 Active Generic For:*PROTONIX 20MG 08/06/2017 2:35:53 PM Ativan 0.5 mg tablet RxNorm: 834194 1/2 Tablet(s) PO Q6 PRN as needed 1/2 po q 2 pm 08/02/2017 09/30/2017 Inactive Depakote 500 mg tablet,delayed release RxNorm: 9465748 1 Tablet(s) PO daily 06/22/2017 10/14/2017 Inactive Exelon Patch 9.5 mg/24 hr transdermal RxNorm: 398638 APPLY ONE (1) PATCH ONCE DAILY. 05/14/2017 10/10/2017 Inactive Protonix 20 mg tablet,delayed release RxNorm: 486224 1 Tablet(s) PO daily 05/08/2017 08/05/2017 Inactive Risperdal 0.25 mg tablet RxNorm: 017900 Tablet(s) UD .25 in am and .5 in hs and .25 prn for psychosis/hallucinations 04/26/2017 05/16/2017 Inactive Nuedexta 20 mg-10 mg capsule RxNorm: 5801989 1 Capsule(s) PO daily x 7 days then go to one cap BID 03/22/2017 04/24/2017 Inactive Ativan 0.5 mg tablet RxNorm: 178154 1/2 Tablet(s) PO Q6 PRN as needed 1/2 po q 2 pm 03/21/2017 08/01/2017 Inactive Keflex 500 mg capsule RxNorm: 028096 1 Capsule(s) PO TID 201603/05/2017 Inactive Keflex 500 mg capsule RxNorm: 030866 1 Capsule(s) PO TID 201603/15/2017 Inactive Ativan 0.5 mg tablet RxNorm: 512665 1/2 Tablet(s) PO Q6 PRN as needed 1/2 po q 2 pm 02/28/2017 03/20/2017 Inactive Protonix 20 mg tablet,delayed release RxNorm: 510645 1 Tablet(s) PO daily 02/07/2017 05/07/2017 Inactive Protonix 20 mg tablet,delayed release RxNorm: 133893 1 Tablet(s) PO daily 02/07/2017 02/06/2017 Inactive amoxicillin 500 mg capsule RxNorm: 253559 1 Capsule(s) PO TID 01/11/2017 01/10/2017 Inactive Patient at [facility] amoxicillin 500 mg capsule RxNorm: 456253 1 Capsule(s) PO TID 01/11/2017 01/17/2017 Inactive Patient at [facility] Exelon Patch 9.5 mg/24 hr transdermal RxNorm: 785025 APPLY ONE (1) PATCH ONCE DAILY. 12/14/2016 05/12/2017 Inactive Flonase 50 mcg/actuation nasal spray,suspension RxNorm: 1715091 1 [place] each nostril NASAL BID 10/30/2016 11/28/2016 Inactive 2 spray each nostril Namenda 10 mg tablet RxNorm: 805593 1 Tablet(s) PO BID 201609/04/2017 Inactive Risperdal 0.25 mg tablet RxNorm: 823828 1 Tablet(s) PO QHS 01/22/2017 Inactive trazodone 50 mg tablet RxNorm: 815448 1.5 Tablet(s) PO QHS 03/29/2017 Inactive Exelon Patch 9.5 mg/24 hr transdermal RxNorm: 190716 APPLY ONE (1) PATCH ONCE DAILY. 07/18/2016 12/13/2016 Inactive trazodone 50 mg tablet RxNorm: 929198 1.5 Tablet(s) PO QHS 09/24/2016 Inactive Exelon Patch 9.5 mg/24 hr transdermal RxNorm: 992145 APPLY ONE (1) PATCH ONCE DAILY. 05/15/2016 05/14/2016 Inactive Exelon Patch 9.5 mg/24 hr transdermal RxNorm: 061863 APPLY ONE (1) PATCH ONCE DAILY. 05/15/2016 10/18/2017 Inactive Risperdal 0.25 mg tablet RxNorm: 153134 1 Tablet(s) PO QHS 11/201509/24/2016 Inactive Exelon Patch 9.5 mg/24 hr transdermal RxNorm: 801691 APPLY ONE (1) PATCH ONCE DAILY. 2016 No Stop Date Active Exelon Patch 9.5 mg/24 hr transdermal RxNorm: 954531 APPLY ONE (1) PATCH ONCE DAILY. 2016 02/21/2016 Inactive trazodone 50 mg tablet RxNorm: 914277 1.5 Tablet(s) PO QHS 01/201605/28/2016 Inactive clopidogrel 75 mg tablet RxNorm: 147895 1 Tablet(s) PO daily 01/31/2017 Inactive Celexa 20 mg tablet RxNorm: 528966 1 Tablet(s) PO daily 201501/31/2017 Inactive simvastatin 20 mg tablet RxNorm: 315986 1 Tablet(s) PO daily 11/21/2017 Inactive [place] Instant Breakfast Juice Drink oral liquid RxNorm: PO QHS after meals 02/02/2016 12/20/2016 Inactive Flonase 50 mcg/actuation nasal spray,suspension RxNorm: 2616096 1 [place] each nostril NASAL BID 12/02/2015 03/30/2016 Inactive 2 spray each nostril Namenda 10 mg tablet RxNorm: 619967 1 Tablet(s) PO BID 201510/06/2016 Inactive Risperdal 0.25 mg tablet RxNorm: 779166 1 Tablet(s) PO QHS 02/29/2016 Inactive Exelon Patch 9.5 mg/24 hr transdermal RxNorm: 922452 1 Patch TD daily 1 Patch TD daily 07/23/2015 01/18/2016 Inactive Exelon Patch 9.5 mg/24 hr transdermal RxNorm: 781748 1 Patch TD daily 07/20/2015 07/22/2015 Inactive Celexa 20 mg tablet RxNorm: 557097 1 Tablet(s) PO daily 201402/06/2016 Inactive Flonase 50 mcg/actuation nasal spray,suspension RxNorm: 884677 1 [place] each nostril NASAL BID 06/04/2015 10/01/2015 Inactive 2 spray each nostril Risperdal 0.25 mg tablet RxNorm: 802168 1 Tablet(s) PO QHS 08/01/2015 Inactive Exelon Patch 9.5 mg/24 hr transdermal RxNorm: 288030 1 Patch TD daily 04/28/2015 07/19/2015 Inactive Vitamin D3 2,000 unit capsule RxNorm: 652976 1 Capsule(s) PO daily 02/10/2015 03/15/2016 Inactive Calcium 600 + D(3) 600 mg (1,500 mg)-400 unit tablet RxNorm: 255098 1 Tablet(s) PO daily 02/09/2015 No Stop Date Active Celexa 20 mg tablet RxNorm: 787183 1 Tablet(s) PO daily 201412/09/2014 Inactive Celexa 20 mg tablet RxNorm: 947352 1 Tablet(s) PO daily 201407/07/2015 Inactive Flonase 50 mcg/actuation nasal spray,suspension RxNorm: 062409 1 [place] each nostril NASAL BID 11/27/2014 03/26/2015 Inactive 2 spray each nostril Casi Allergy 180 mg tablet RxNorm: 688254 1 Tablet(s) PO daily 11/19/2014 12/18/2014 Inactive Marinol 2.5 mg capsule RxNorm: 303836 1 Capsule(s) PO TID 11/1603/15/2015 Inactive [SAVINGS FOR UNINSURED PATIENTS -- BIN:[id number], PCN: [id number], Group: [facility], ID# [id number], Process claim through [employer], for questions: . THIS IS NOT INSURANCE.] Namenda 10 mg tablet RxNorm: 377510 1 Tablet(s) PO BID 201402/08/2015 Inactive Marinol 2.5 mg capsule RxNorm: 917115 1 Capsule(s) PO TID 10/1211/10/2014 Inactive Namenda 10 mg tablet RxNorm: 257039 1 Tablet(s) PO BID 201410/11/2014 Inactive Flonase 50 mcg/actuation nasal spray,suspension RxNorm: 963280 2 [place] NASAL BID 08/17/2014 11/26/2014 Inactive 2 spray each nostril Exelon Patch 9.5 mg/24 hr transdermal RxNorm: 652673 1 Patch TD daily 07/10/2014 10/07/2014 Inactive Risperdal 0.25 mg tablet RxNorm: 268392 1 Tablet(s) PO QHS 05/201405/03/2015 Inactive Namenda XR 14 mg capsule sprinkle,ER 24hr RxNorm: 352324 1 Capsule(s) PO daily 04/13/2014 10/11/2014 Inactive acyclovir 800 mg tablet RxNorm: 110115 1 Tablet(s) PO TID 03/1203/18/2014 Inactive nystatin 100,000 unit/gram topical powder RxNorm: 355479 1 Gram(s) TOP QID apply to tissue under breasts and if needed other folded skin ears with evidence of yeast infection 03/12/2014 03/21/2014 Inactive simvastatin 20 mg tablet RxNorm: 746596 1 Tablet(s) PO daily 02/15/2014 Inactive trazodone 50 mg tablet RxNorm: 919340 1 1/2 Tablet(s) PO daily 02/16/2014 02/15/2014 Inactive trazodone 50 mg tablet RxNorm: 307534 1 1/2 Tablet(s) PO daily 02/16/2014 03/17/2014 Inactive clopidogrel 75 mg tablet RxNorm: 561581 1 Tablet(s) PO daily 02/10/2015 Inactive Exelon 4.6 mg/24 hour transdermal 24 hour patch RxNorm: 682510 1 TD daily 02/16/2014 03/17/2014 Inactive simvastatin 20 mg tablet RxNorm: 415446 1 Tablet(s) PO daily 06/15/2014 Inactive Vitamin B-12 2,500 mcg sublingual tablet RxNorm: 134648 1 Tablet(s) SL daily 01/22/2014 No Stop Date Active Ativan 0.5 mg tablet RxNorm: 272060 1/2 Tablet(s) PO Q6 PRN 1/2 po q 2 pm and 1 po q 6 hours prn anxiety 10/16/20132013 Inactive Cipro 500 mg tablet RxNorm: 286363 1 Tablet(s) PO BID correction 08/04/2013 08/08/2013 Inactive Cipro 500 mg tablet RxNorm: 109026 2 Tablet(s) PO BID 201208/03/2013 Inactive Cipro 500 mg tablet RxNorm: 254468 2 Tablet(s) PO BID 201207/31/2013 Inactive Influenza Virus Vaccine 0.5 mL RxNorm: IM 07/07/2013 07/07/2013 Inactive clopidogrel 75 mg tablet RxNorm: 516213 1 Tablet(s) PO daily 02/15/2014 Inactive risperidone 0.5 mg tablet RxNorm: 179645 1 Tablet(s) PO TID 01/21/2014 Inactive atorvastatin 20 mg tablet RxNorm: 535597 1 Tablet(s) PO QPM 01/21/2014 Inactive TAKE ONE TABLET BY MOUTH EVERY DAY risperidone 0.5 mg tablet RxNorm: 554350 1 Tablet(s) PO TID 02/201306/24/2013 Inactive Risperdal 0.25 mg tablet RxNorm: 965929 Tablet(s) PO TAKE 1 TABLET AT NOON AND TAKE 1 TABLET AT NIGHT IF NEEDED FOR HALLUCINATIONS 201206/11/2013 Inactive clopidogrel 75 mg tablet RxNorm: 306404 1 Tablet(s) PO daily 06/24/2013 Inactive Risperdal 0.25 mg tablet RxNorm: 389363 1 Tablet(s) PO noon one at noon and one in night if needed for hallucinations. 09/06/2012 01/01/2013 Inactive atorvastatin 20 mg tablet RxNorm: 400541 1 Tablet(s) PO QPM 06/24/2013 Inactive TAKE ONE TABLET BY MOUTH EVERY DAY risperidone 0.5 mg tablet RxNorm: 167852 1 Tablet(s) PO BID 06/11/2013 Inactive atorvastatin 20 mg tablet RxNorm: 545394 Tablet(s) PO 201109/05/2012 Inactive TAKE ONE TABLET BY MOUTH EVERY DAY nystatin 100,000 unit/g Topical Powder RxNorm: 113676 1 Gram(s) TOP BID 08/08/2012 08/27/2012 Inactive atorvastatin 20 mg tablet RxNorm: 516410 Tablet(s) PO 201108/11/2012 Inactive TAKE ONE TABLET BY MOUTH EVERY DAY risperidone 0.5 mg tablet RxNorm: 497285 1 Tablet(s) PO BID 03/201207/12/2012 Inactive Risperdal 0.25 mg tablet RxNorm: 216291 1 Tablet(s) PO noon one at noon and one in night if needed for hallucinations. 06/13/2012 09/05/2012 Inactive clopidogrel 75 mg tablet RxNorm: 025327 1 Tablet(s) PO daily 09/05/2012 Inactive atorvastatin 20 mg tablet RxNorm: 849669 1 Tablet(s) PO daily 05/10/2012 06/08/2012 Inactive Cipro 500 mg Tab RxNorm: 775206 1 Tablet(s) PO BID 201104/11/2012 Inactive Risperdal 0.25 mg tablet RxNorm: 322954 1 Tablet(s) PO noon one at noon and one in night if needed for hallucinations. 03/22/2012 06/12/2012 Inactive Risperdal 0.25 mg Tab RxNorm: 544586 1 Tablet(s) PO noon one at noon and one in night if needed for hallucinations. 03/21/2012 03/21/2012 Inactive Vitamin D3 2,000 unit tablet RxNorm: 977969 1 Tablet(s) PO daily No Start Date Active Protonix 20 mg tablet,delayed release RxNorm: 161330 1 Tablet(s) PO daily No Start Date Active Vitamin B-12 500 mcg tablet RxNorm: 117462 1 Tablet(s) PO daily No Start Date Active melatonin 3 mg tablet RxNorm: 189954 2 Tablet(s) PO QHS No Start Date Active Tylenol 500 mg RxNorm : 1 -2 Tablet(s) PO Q6 as needed pain or fever No Start Date Active Vitamin D3 2,000 unit capsule RxNorm: 754055 1 Capsule(s) PO daily No Start Date 02/09/2015 Inactive trazodone 50 mg tablet RxNorm: 166067 1.5 Tablet(s) PO QHS No Start Date 02/08/2016 Inactive Trazadone 25 mg RxNorm : 3 PO QHS No Start Date 02/15/2014 Inactive [place] Instant Breakfast Juice Drink oral liquid RxNorm: PO TID after meals No Start Date 02/01/2016 Inactive Vitamin B-12 2,500 mcg sublingual tablet RxNorm: 158091 1 Tablet(s) SL daily No Start Date 01/21/2014 Inactive Tums Calcium for Life Bone 300 mg (750 mg) chewable tablet RxNorm: 066267 2 Tablet (s) PO daily No Start Date 02/12/2013 Inactive calcium 300 mg chewable tablet RxNorm: 1 Tablet(s) PO daily No Start Date 12/03/2015 Inactive with vitamin d Marinol 2.5 mg capsule RxNorm: 818978 1 Capsule(s) PO ac tid No Start Date 03/11/2014 Inactive Namenda XR 14 mg capsule sprinkle,ER 24hr RxNorm: 665305 1 Capsule(s) PO daily No Start Date 04/12/2014 Inactive clopidogrel 75 mg tablet RxNorm: 810105 1 Tablet(s) PO daily No Start Date 05/09/2012 Inactive Namenda 5 mg Tab RxNorm: 012758 1 Tablet(s) PO BID No Start Date 04/12/2014 Inactive Depakote 500 mg tablet,delayed release RxNorm: 9264319 1 Tablet(s) PO daily No Start Date 06/21/2017 Inactive Zocor 20 mg tablet RxNorm: 867264 1 Tablet(s) PO daily No Start Date 08/12/2014 Inactive losartan 50 mg tablet RxNorm: 840403 1 Tablet(s) PO daily No Start Date 11/04/2017 Inactive Depakote ER 250 mg tablet,extended release RxNorm: 1361976 1 Tablet(s) PO BID No Start Date 12/31/2013 Inactive Calcium 600 + D(3) oral RxNorm: 131237 oral No Start Date 02/08/2015 Inactive risperidone 0.5 mg tablet RxNorm: 949664 1 Tablet(s) PO BID No Start Date 06/12/2012 Inactive lorazepam 0.5 mg tablet RxNorm: 569821 1 Tablet(s) PO daily No Start Date 11/21/2017 Inactive atorvastatin 20 mg tablet RxNorm: 920227 1 Tablet(s) PO daily No Start Date 05/09/2012 Inactive Flonase 50 mcg/actuation nasal spray,suspension RxNorm: 994295 2 [place] NASAL BID No Start Date 08/16/2014 Inactive 2 spray each nostril Exelon 4.6 mg/24 hour transdermal 24 hour patch RxNorm: 387230 1 TD daily No Start Date 02/15/2014 Inactive Medication Administered Medication Codes Instructions Start Date Status Influenza Virus Vaccine 0.5 mL RxNorm: 07/07/2013 No longer Active Immunizations Vaccine Codes Date Status Influenza CVX: 141 06/22/2016 completed Pneumococcal (Adult) CVX: 133 09/16/2015 completed Influenza CVX: 141 07/01/2015 completed Influenza CVX: 141 06/11/2014 completed Influenza CVX: 141 07/07/2013 completed Influenza CVX: 141 07/25/2012 completed Influenza CVX: 141 07/25/2012 completed Pneumococcal CVX: 33 03/18/2012 completed Assessments Condition Codes Effective Dates Essential (primary) hypertension ICD-10: I10 ICD-9: 401.1 11/22/2017 Mixed hyperlipidemia ICD-10: E78.2 ICD-9: 272.2 11/22/2017 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 ICD-9: 298.8 11/22/2017 Major depressive disorder, recurrent, 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 ICD-9: 296.31 08/16/2017 Dementia with Lewy bodies ICD-10: G31.83 ICD-9: 331.82 04/25/2017 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 ICD-9: 310.81 03/22/2017 Encounter for immunization ICD-10: Z23 ICD-9: V04.81 09/21/2016 Mixed hyperlipidemia ICD-10: E78.2 ICD-9: 272.4 03/23/2016 Other hallucinations ICD-10: R44.2 ICD-9: 780.1 12/16/2015 Encounter for immunization ICD-10: Z23 ICD-9: V03.82 09/16/2015 VACCIN FOR INFLUENZA ICD-9: V04.81 2014 DEMEN NOS 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 ICD-9: 294.20 HYPERLIPIDEMIA ICD-9: 272.4 07/01/2015 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 Psychosis ICD-9: 298.9 06/11/2014 Ulcer of gingiva ICD-9: 523.8 04/16/2014 Oral aphthae ICD-9: 528.2 03/12/2014 Yeast infection of the skin ICD-9: 112.3 03/12/2014 Shingles ICD-9: 053.9 03/12/2014 Impacted cerumen of both ears ICD-9: 380.4 02/26/2014 Weight loss ICD-9: 783.21 02/26/2014 HALLUCINATIONS ICD-9: 780.1 11/27/2013 SENILE DELUSION ICD-9: 290.20 11/27/2013 URINARY FREQUENCY ICD-9: 788.41 2012 DYSURIA ICD-9: 788.1 07/31/2013 Encounter for long-term (current) use of other medications ICD-9: V58.69 07/07/2013 Dehydration ICD-9: 276.51 01/06/2013 Dry skin ICD-9: 782.9 08/08/2012 Seborrheic keratosis ICD-9: 702.19 2011 Candidiasis of breast ICD-9: 112.2 2011 INSOMNIA IN OTHER DIS ICD-9: 327.01 03/21 Reason For Visit Reason For Visit Effective Dates Notes memory loss 11/22/2017 memory loss 08/16/2017 memory loss 05/17/2017 memory loss 04/25/2017 memory loss 03/22/2017 memory loss 12/21/2016 memory loss 09/21/2016 memory loss 06/22/2016 memory loss 03/23/2016 memory loss 12/16/2015 memory loss 09/16/2015 memory loss 07/01/2015 anxiety 02/25/2015 cough 11/19/2014 depression 08/13/2014 depression 06/11/2014 skin lesion 04/16/2014 reported by snf skin lesion 03/12/2014 weight loss 02/26/2014 medication follow up 11/27/2013 anxiety 10/16/2013 memory loss 07/10/2013 --Improved vaccination against influenza 07/07/2013 memory loss 06/12/2013 hallucination 02/13/2013 hallucination 01/06/2013 rash 09/19/2012 skin lesion 08/08/2012 vaccination against influenza 07/25/2012 memory loss 05/23/2012 hallucination 04/04/2012 dementia memory loss 03/21/2012 Results Observation Observation Code Item Item Code Result Date Valproic Acid Lle041 VALPROIC 38.0 ug/ml 11/22/2017 Valproic Acid Lav278 VALPROIC 44.0 ug/ml 10/22/2017 Hepatic Lyt172 ALBUMIN 3.3 g/dL 10/22/2017 Hepatic Kwt719 TPRO 5.7 g/dL 10/22/2017 Hepatic Jhk142 GLOB 2.4 g/dL 10/22/2017 Hepatic Aod924 A/G Ratio 1.4 Ratio 10/22/2017 Hepatic Ixo529 ALK PHOS 72 U/L 10/22/2017 Hepatic Dyu414 ALT(SGPT) 5 U/L 10/22/2017 Hepatic Jui278 AST(SGOT) 9 U/L 10/22/2017 Hepatic Kud944 BILI T 0.3 mg/dL 10/22/2017 Hepatic Fmd390 BILI D 0.0 mg/dL 10/22/2017 Hepatic Hca835 BILI I 0.3 mg/dL 10/22/2017 Hepatic Srf502 ALBUMIN 3.8 g/dL 09/20/2017 Hepatic Dsn281 TPRO 6.3 g/dL 09/20/2017 Hepatic Rzc338 GLOB 2.5 g/dL 09/20/2017 Hepatic Jac625 A/G Ratio 1.5 Ratio 09/20/2017 Hepatic Vkf213 ALK PHOS 67 U/L 09/20/2017 Hepatic Sjt019 ALT(SGPT) 5 U/L 09/20/2017 Hepatic Eib562 AST(SGOT) 11 U/L 09/20/2017 Hepatic Amx369 BILI T 0.4 mg/dL 09/20/2017 Hepatic Lel726 BILI D 0.1 mg/dL 09/20/2017 Hepatic Gkc678 BILI I 0.3 mg/dL 09/20/2017 Valproic Acid Ldi040 VALPROIC 10.0 ug/ml 09/20/2017 Valproic Acid Xnp138 VALPROIC 44.0 ug/ml 08/23/2017 Hepatic Mkx187 ALBUMIN 3.5 g/dL 08/23/2017 Hepatic Raw913 TPRO 6.1 g/dL 08/23/2017 Hepatic Iuh614 GLOB 2.6 g/dL 08/23/2017 Hepatic Vai961 A/G Ratio 1.4 Ratio 08/23/2017 Hepatic Wiw429 ALK PHOS 63 U/L 08/23/2017 Hepatic Uoy087 ALT(SGPT) 5 U/L 08/23/2017 Hepatic Hlo214 AST(SGOT) 9 U/L 08/23/2017 Hepatic Zea259 BILI T 0.3 mg/dL 08/23/2017 Hepatic Gxl772 BILI D 0.1 mg/dL 08/23/2017 Hepatic Cpi933 BILI I 0.2 mg/dL 08/23/2017 Hepatic Zfk146 ALBUMIN 3.5 g/dL 07/23/2017 Hepatic Ael525 TPRO 5.9 g/dL 07/23/2017 Hepatic Mvq492 GLOB 2.4 g/dL 07/23/2017 Hepatic Yun114 A/G Ratio 1.5 Ratio 07/23/2017 Hepatic Qce707 ALK PHOS 61 U/L 07/23/2017 Hepatic Rto699 ALT(SGPT) 6 U/L 07/23/2017 Hepatic Hhv480 AST(SGOT) 11 U/L 07/23/2017 Hepatic Ohj227 BILI T 0.3 mg/dL 07/23/2017 Hepatic Per945 BILI D 0.1 mg/dL 07/23/2017 Hepatic Yjf202 BILI I 0.2 mg/dL 07/23/2017 Valproic Acid Omy308 VALPROIC 37.0 ug/ml 07/23/2017 Hepatic Dim872 ALBUMIN 3.6 g/dL 06/26/2017 Hepatic Fby902 TPRO 6.0 g/dL 06/26/2017 Hepatic Aow462 GLOB 2.4 g/dL 06/26/2017 Hepatic Tpi975 A/G Ratio 1.5 Ratio 06/26/2017 Hepatic Uxn038 ALK PHOS 64 U/L 06/26/2017 Hepatic Ayv749 ALT(SGPT) 8 U/L 06/26/2017 Hepatic Kxn535 AST(SGOT) 11 U/L 06/26/2017 Hepatic War339 BILI T 0.3 mg/dL 06/26/2017 Hepatic Wlm974 BILI D 0.1 mg/dL 06/26/2017 Hepatic Sts492 BILI I 0.2 mg/dL 06/26/2017 Valproic Acid Kpb511 VALPROIC 45.0 ug/ml 06/26/2017 Comp Metabolic Qht752 NA 140 mEq/L 05/18/2017 Comp Metabolic [id number] K 4.2 mEq/L 05/18/2017 Comp Metabolic Gve594 CL 103 mEq/L 05/18/2017 Comp Metabolic Jbk647 CO2 27.0 mEq/L 05/18/2017 Comp Metabolic Zea749 ANION GAP 14 05/18/2017 Comp Metabolic Ctj626 GLUCOSE 85 mg/dL 05/18/2017 Comp Metabolic Jgy144 Creat 0.6 mg/dL 05/18/2017 Comp Metabolic Yym688 eGFR 109 ml/min/1.73m2 05/18/2017 Comp Metabolic Lzg133 BUN 8 mg/dL 05/18/2017 Comp Metabolic Qpc260 B/C Ratio 14.3 Ratio 05/18/2017 Comp Metabolic Oly601 CALCIUM 8.6 mg/dL 05/18/2017 Comp Metabolic Jcb027 ALK PHOS 85 U/L 05/18/2017 Comp Metabolic Oxg348 AST(SGOT) 10 U/L 05/18/2017 Comp Metabolic Ufb508 ALT(SGPT) 6 U/L 05/18/2017 Comp Metabolic Wuh072 BILI T 0.4 mg/dL 05/18/2017 Comp Metabolic Hte516 ALBUMIN 3.7 g/dL 05/18/2017 Comp Metabolic Lys195 TPRO 6.3 g/dL 05/18/2017 Comp Metabolic Mfb458 GLOB 2.6 g/dL 05/18/2017 Comp Metabolic Gru057 A/G Ratio 1.4 Ratio 05/18/2017 Comp Metabolic Aez704 Osmo 277 mOsmo 05/18/2017 Bili D Ord93 BILI D 0.1 mg/dL 05/18/2017 Bili D Ord93 BILI I 0.3 mg/dL 05/18/2017 Valproic Acid Onv137 VALPROIC 27.0 ug/ml 05/18/2017 Urinalysis Ord28 U-Color Yellow 04/11/2017 Urinalysis Ord28 U-Clarity Clear 04/11/2017 Urinalysis Ord28 U-Gluc Negative 04/11/2017 Urinalysis Ord28 U-Bili Negative 04/11/2017 Urinalysis Ord28 U-Ketone Negative 04/11/2017 Urinalysis Ord28 U-SG 1.020 04/11/2017 Urinalysis Ord28 U-Blood Negative 04/11/2017 Urinalysis Ord28 U-pH 6.0 04/11/2017 Urinalysis Ord28 U-Protein Negative 04/11/2017 Urinalysis Ord28 U-Urobilin 0.2 E.U./dL E.U./dL 04/11/2017 Urinalysis Ord28 U-Nitrites Negative 04/11/2017 Urinalysis Ord28 U-Leuk Negative 04/11/2017 Urinalysis Ord28 U-Bact TRACE 04/11/2017 Urinalysis Ord28 U-Squamous Epi 0-5 per/HPF 04/11/2017 Urinalysis Ord28 U-Crystal None per/HPF 04/11/2017 Urinalysis Ord28 U-Mucus None 04/11/2017 Urinalysis Ord28 U-Renal tubular epi None 04/11/2017 Urinalysis Ord28 U-RBC None per/HPF 04/11/2017 Urinalysis Ord28 U-Transitional epi None per/HPF 04/11/2017 Urinalysis Ord28 U-WBC None per/HPF 04/11/2017 Urinalysis Ord28 U-Cast None per/HPF 04/11/2017 Urinalysis Ord28 U-VOL VOLUME SUFFICIENT (10mL) 04/11/2017 Urinalysis Ord28 U-Com Urine saved if culture needed (specimen acceptable for 48 hours from collection if refrigerated) 04/11/2017 Urinalysis Ord28 U-Yeast NEGATIVE 04/11/2017 A1C [id number] A1C HPLC 27075-4 5.9 % 07/08/2013 LIPID GRP HDL TEST 47 MG/DL 07/07/2013 LIPID GRP TRIG 121 MG/DL 07/07/2013 LIPID GRP TEST LDL 63 MG/DL 07/07/2013 LIPID GRP CHOL 134 MG/DL 07/07/2013 LIPID GRP RCHOL/HDL 2.85 RATIO 07/07/2013 CBC [id number] WBC 8.9 10e9/L 07/07/2013 CBC [id number] RBC 4.27 10e12/L 07/07/2013 CBC [id number] HGB 12.7 g/dL 07/07/2013 CBC [id number] HCT DET 39.0 % 07/07/2013 CBC [id number] MCV 91.3 fL 07/07/2013 CBC [id number] MCH 29.7 pg 07/07/2013 CBC [id number] MCHC 32.6 g/dL 07/07/2013 CBC [id number] PLT 273 10e9/L 07/07/2013 CBC [id number] MPV 11.0 fL 07/07/2013 CBC [id number] TORREY % 69.1 % 07/07/2013 CBC [id number] LY % 19.6 % 07/07/2013 CBC [id number] MON % 8.5 % 07/07/2013 CBC [id number] EOS % 2.6 % 07/07/2013 CBC [id number] BASO % 0.2 % 07/07/2013 CBC [id number] RDW 13.0 % 07/07/2013 CBC [id number] ABS TORREY 6.15 10e9/L 07/07/2013 CBC [id number] ABS LYMPH 1.74 10e9/L 07/07/2013 CBC [id number] ABS MONO 0.76 10e9/L 07/07/2013 CBC [id number] ABS EOS 0.23 10e9/L 07/07/2013 CBC [id number] ABS BASO 0.02 10e9/L 07/07/2013 CBC [id number] RDW-SD 42.3 fL 07/07/2013 GFR CALC 5713615 GFR AA >60 ML/MIN 07/07/2013 GFR CALC 6288264 GFR NON-AA >60 ML/MIN 07/07/2013 CHEM 14 [id number] AST 14 U/L 07/07/2013 CHEM 14 5058732 ALT 10 IU/L 07/07/2013 CHEM 14 [id number] BUN 11 MG/DL 07/07/2013 CHEM 14 6400617 ALBUMIN 4.1 GM/DL 07/07/2013 CHEM 14 3142266 CHLORIDE 107 MMOL/L 07/07/2013 CHEM 14 7695877 BILI TOT 0.4 MG/DL 07/07/2013 CHEM 14 [id number] ALK PHOS 54 U/L 07/07/2013 CHEM 14 7812619 SODIUM 141 MMOL/L 07/07/2013 CHEM 14 0819946 CREATININE 0.70 MG/DL 07/07/2013 CHEM 14 [id number] CALCIUM 9.0 MG/DL 07/07/2013 CHEM 14 1245022 POTASSIUM 4.2 MMOL/L 07/07/2013 CHEM 14 6842635 PROT TOT 6.5 GM/DL 07/07/2013 CHEM 14 2354018 GLUCOSE 102 MG/DL 07/07/2013 CHEM 14 [id number] BICARB 28 MMOL/L 07/07/2013 CHEM 14 1041232 ANION GAP 6 MEQ/L 07/07/2013 CHEM 14 1081134 AST 14 U/L 01/06/2013 CHEM 14 5455790 ALT 12 IU/L 01/06/2013 CHEM 14 [id number] BUN 9 MG/DL 01/06/2013 CHEM 14 [id number] ALBUMIN 4.2 GM/DL 01/06/2013 CHEM 14 8828536 CHLORIDE 108 MMOL/L 01/06/2013 CHEM 14 2008596 BILI TOT 0.4 MG/DL 01/06/2013 CHEM 14 4116763 ALK PHOS 74 U/L 01/06/2013 CHEM 14 2987675 SODIUM 142 MMOL/L 01/06/2013 CHEM 14 5400661 CREATININE 0.62 MG/DL 01/06/2013 CHEM 14 7088188 CALCIUM 9.0 MG/DL 01/06/2013 CHEM 14 2111214 POTASSIUM 4.3 MMOL/L 01/06/2013 CHEM 14 1232303 PROT TOT 6.6 GM/DL 01/06/2013 CHEM 14 6600641 GLUCOSE 94 MG/DL 01/06/2013 CHEM 14 7254424 BICARB 25 MMOL/L 01/06/2013 CHEM 14 7542638 ANION GAP 9 MEQ/L 01/06/2013 CBC [id number] WBC 7.2 10e9/L 01/06/2013 CBC [id number] RBC 4.22 10e12/L 01/06/2013 CBC [id number] HGB 12.6 g/dL 01/06/2013 CBC 7899821 HCT DET 38.3 % 01/06/2013 CBC [id number] MCV 90.8 fL 01/06/2013 CBC [id number] MCH 29.9 pg 01/06/2013 CBC 9998539 MCHC 32.9 g/dL 01/06/2013 CBC [id number] PLT 287 10e9/L 01/06/2013 CBC 6990322 MPV 11.0 fL 01/06/2013 CBC [id number] TORREY % 68.0 % 01/06/2013 CBC [id number] LY % 21.6 % 01/06/2013 CBC [id number] MON % 9.0 % 01/06/2013 CBC [id number] EOS % 1.3 % 01/06/2013 CBC [id number] BASO % 0.1 % 01/06/2013 CBC [id number] RDW 13.3 % 01/06/2013 CBC [id number] ABS TORREY 4.90 10e9/L 01/06/2013 CBC [id number] ABS LYMPH 1.56 10e9/L 01/06/2013 CBC [id number] ABS MONO 0.65 10e9/L 01/06/2013 CBC 9871788 ABS EOS 0.09 10e9/L 01/06/2013 CBC [id number] ABS BASO 0.01 10e9/L 01/06/2013 CBC 4056043 RDW-SD 43.0 fL 01/06/2013 VIT B 12 9715785 VIT B 12 >2000 PG/ML 01/06/2013 TSH 1530189 TSH 1.814 uIU/ML 01/06/2013 GFR CALC 7295225 GFR AA >60 ML/MIN 01/06/2013 GFR CALC 5892466 GFR NON-AA >60 ML/MIN 01/06/2013 FREE T4 [id number] FREE T4 1.19 NG/DL 01/06/2013 URINALYSIS NONAUTO W/O SCOPE 36409 Specific [place] 1.020 DateTime(Free Text in Aprima) URINALYSIS NONAUTO W/O SCOPE 40131 PH 6.0 DateTime(Free Text in Aprima) URINALYSIS NONAUTO W/O SCOPE 94258 GLUCOSE negative DateTime(Free Text in Aprima) URINALYSIS NONAUTO W/O SCOPE 61649 Protein negative DateTime(Free Text in Aprima) URINALYSIS NONAUTO W/O SCOPE 04764 Blood negative DateTime( Free Text in Aprima) URINALYSIS NONAUTO W/O SCOPE 96809 Bilirubin negative DateTime(Free Text in Aprima) URINALYSIS NONAUTO W/O SCOPE 56453 Ketones trace DateTime(Free Text in Aprima) URINALYSIS NONAUTO W/O SCOPE 97245 Urobilinogen negative DateTime(Free Text in Aprima) URINALYSIS NONAUTO W/O SCOPE 30729 Nitrite negative DateTime(Free Text in Aprima) URINALYSIS NONAUTO W/O SCOPE 13668 Leukocytes 1+ DateTime(Free Text in Aprima) URINALYSIS NONAUTO W/O SCOPE 95394 Specific [place] 1.005 DateTime(Free Text in Aprima) URINALYSIS NONAUTO W/O SCOPE 88542 PH 5 DateTime(Free Text in Aprima) URINALYSIS NONAUTO W/O SCOPE 67382 GLUCOSE neg DateTime( Free Text in Aprima) URINALYSIS NONAUTO W/O SCOPE 48035 Protein neg DateTime( Free Text in Aprima) URINALYSIS NONAUTO W/O SCOPE 92930 Blood neg DateTime(Free Text in Aprima) URINALYSIS NONAUTO W/O SCOPE 53290 Bilirubin neg DateTime(Free Text in Aprima) URINALYSIS NONAUTO W/O SCOPE 60213 Ketones neg DateTime( Free Text in Aprima) URINALYSIS NONAUTO W/O SCOPE 61119 Urobilinogen neg DateTime(Free Text in Aprima) URINALYSIS NONAUTO W/O SCOPE 95973 Nitrite neg DateTime( Free Text in Aprima) URINALYSIS NONAUTO W/O SCOPE 88066 Leukocytes neg DateTime(Free Text in Aprima) URINALYSIS NONAUTO W/O SCOPE 64759 Specific [place] 1.010 DateTime(Free Text in Aprima) URINALYSIS NONAUTO W/O SCOPE 98596 PH 6 DateTime(Free Text in Aprima) URINALYSIS NONAUTO W/O SCOPE 42650 GLUCOSE DateTime( Free Text in Aprima) URINALYSIS NONAUTO W/O SCOPE 50141 Protein DateTime( Free Text in Aprima) URINALYSIS NONAUTO W/O SCOPE 76109 Blood DateTime(Free Text in Apr) URINALYSIS NONAUTO W/O SCOPE 75942 Bilirubin DateTime( Free Text in Aprima) URINALYSIS NONAUTO W/O SCOPE 50554 Ketones DateTime( Free Text in Aprima) URINALYSIS NONAUTO W/O SCOPE 79519 Urobilinogen DateTime (Free Text in Apr) URINALYSIS NONAUTO W/O SCOPE 96140 Nitrite DateTime( Free Text in Aprima) URINALYSIS NONAUTO W/O SCOPE 26976 Leukocytes trace DateTime(Free Text in ) Review of Systems System Result Effective Dates Constitutional No anorexia 11/22/2017 Constitutional No night sweats 2017 Constitutional No chills 11/22/2017 Constitutional No diaphoresis 11/22/2017 Constitutional fatigue 11/22/2017 Constitutional No fever 11/22/2017 Constitutional No insomnia 11/22/2017 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 Eyes No eye discharge 11/22/2017 Eyes No eye erythema 11/22/2017 Eyes macular degeneration 11/22/2017 Ears/Nose/Throat/Neck No dizziness 2017 Ears/Nose/Throat/Neck No headache 2017 Ears/Nose/Throat/Neck No nasal allergies 11/22/2017 Ears/Nose/Throat/Neck No nasal discharge 11/22/2017 Ears/Nose/Throat/Neck No otalgia 2017 Ears/Nose/Throat/Neck No sinus congestion 11/22/2017 Cardiovascular No chest pain/pressure Cardiovascular No dyspnea 11/22/2017 Cardiovascular No edema 11/22/2017 Cardiovascular hypertension 11/22/2017 Respiratory No chest congestion 2017 Respiratory No chest tightness 2017 Respiratory No cough 11/22/2017 Gastrointestinal No abdominal pain 2017 Gastrointestinal No constipation 2017 Gastrointestinal No diarrhea 11/22/2017 Gastrointestinal No nausea 11/22/2017 Gastrointestinal No vomiting 11/22/2017 Genitourinary/Nephrology No dysuria 11/22 Musculoskeletal No stiffness 11/22/2017 Musculoskeletal No arthralgia(s) 2017 Musculoskeletal No joint complaint 2017 Dermatologic No rash 11/22/2017 Dermatologic sores 11/22/2017 Dermatologic No scar 11/22/2017 Neurologic No alteration of consciousness 11/22/2017 Neurologic memory loss 11/22/2017 Psychiatric anxiety 11/22/2017 Psychiatric depression 11/22/2017 Psychiatric disturbances of emotion 11/22 Psychiatric disturbances of memory 2017 Psychiatric disturbances of thinking Psychiatric hallucination 11/22/2017 Constitutional No anorexia 08/16/2017 Constitutional No night sweats 2016 Constitutional No chills 08/16/2017 Constitutional No diaphoresis 08/16/2017 Constitutional fatigue 08/16/2017 Constitutional No fever 08/16/2017 Constitutional No insomnia 08/16/2017 Eyes blindness 08/16/2017 Eyes No eye discharge 08/16/2017 Eyes No eye erythema 08/16/2017 Eyes macular degeneration 08/16/2017 Ears/Nose/Throat/Neck No dizziness 2016 Ears/Nose/Throat/Neck No headache 2016 Ears/Nose/Throat/Neck No nasal allergies 08/16/2017 Ears/Nose/Throat/Neck No nasal discharge 08/16/2017 Ears/Nose/Throat/Neck No otalgia 2016 Ears/Nose/Throat/Neck No sinus congestion 08/16/2017 Cardiovascular No chest pain/pressure 06/2017 Cardiovascular No dyspnea 08/16/2017 Cardiovascular No edema 08/16/2017 Cardiovascular hypertension 08/16/2017 Respiratory No chest congestion 2016 Respiratory No chest tightness 2016 Respiratory No cough 08/16/2017 Gastrointestinal No abdominal pain 2016 Gastrointestinal No constipation 2016 Gastrointestinal No diarrhea 08/16/2017 Gastrointestinal No nausea 08/16/2017 Gastrointestinal No vomiting 08/16/2017 Genitourinary/Nephrology No dysuria 08/16 Musculoskeletal No stiffness 08/16/2017 Musculoskeletal No arthralgia(s) 2016 Musculoskeletal No joint complaint 2016 Dermatologic No rash 08/16/2017 Dermatologic sores 08/16/2017 Dermatologic No scar 08/16/2017 Neurologic No alteration of consciousness 08/16/2017 Neurologic memory loss 08/16/2017 Psychiatric anxiety 08/16/2017 Psychiatric depression 08/16/2017 Psychiatric disturbances of emotion 08/16 Psychiatric disturbances of memory 2016 Psychiatric disturbances of thinking 06/2017 Psychiatric hallucination 08/16/2017 Constitutional No anorexia 05/17/2017 Constitutional No night sweats 2016 Constitutional No chills 05/17/2017 Constitutional No diaphoresis 05/17/2017 Constitutional fatigue 05/17/2017 Constitutional No fever 05/17/2017 Constitutional No insomnia 05/17/2017 Eyes blindness 05/17/2017 Eyes No eye discharge 05/17/2017 Eyes No eye erythema 05/17/2017 Eyes macular degeneration 05/17/2017 Ears/Nose/Throat/Neck No dizziness 2016 Ears/Nose/Throat/Neck No headache 2016 Ears/Nose/Throat/Neck No nasal allergies 05/17/2017 Ears/Nose/Throat/Neck No nasal discharge 05/17/2017 Ears/Nose/Throat/Neck No otalgia 2016 Ears/Nose/Throat/Neck No sinus congestion 05/17/2017 Cardiovascular No chest pain/pressure 07/2017 Cardiovascular No dyspnea 05/17/2017 Cardiovascular No edema 05/17/2017 Respiratory No chest congestion 2016 Respiratory No chest tightness 2016 Respiratory No cough 05/17/2017 Gastrointestinal No abdominal pain 2016 Gastrointestinal No constipation 2016 Gastrointestinal No diarrhea 05/17/2017 Gastrointestinal No nausea 05/17/2017 Gastrointestinal No vomiting 05/17/2017 Genitourinary/Nephrology No dysuria 05/17 Musculoskeletal No stiffness 05/17/2017 Musculoskeletal No arthralgia(s) 2016 Musculoskeletal No joint complaint 2016 Dermatologic No rash 05/17/2017 Dermatologic sores 05/17/2017 Dermatologic No scar 05/17/2017 Neurologic No alteration of consciousness 05/17/2017 Neurologic memory loss 05/17/2017 Psychiatric anxiety 05/17/2017 Psychiatric depression 05/17/2017 Psychiatric disturbances of emotion 05/17 Psychiatric disturbances of memory 2016 Psychiatric disturbances of thinking 07/2017 Psychiatric hallucination 05/17/2017 Cardiovascular hypertension 05/17/2017 Constitutional No anorexia 04/25/2017 Constitutional No night sweats 2016 Constitutional No chills 04/25/2017 Constitutional No diaphoresis 04/25/2017 Constitutional fatigue 04/25/2017 Constitutional No fever 04/25/2017 Constitutional No insomnia 04/25/2017 Eyes blindness 04/25/2017 Eyes No eye discharge 04/25/2017 Eyes No eye erythema 04/25/2017 Eyes macular degeneration 04/25/2017 Ears/Nose/Throat/Neck No dizziness 2016 Ears/Nose/Throat/Neck No headache 2016 Ears/Nose/Throat/Neck No nasal allergies 04/25/2017 Ears/Nose/Throat/Neck No nasal discharge 04/25/2017 Ears/Nose/Throat/Neck No otalgia 2016 Ears/Nose/Throat/Neck No sinus congestion 04/25/2017 Cardiovascular No chest pain/pressure Cardiovascular No dyspnea 04/25/2017 Cardiovascular No edema 04/25/2017 Respiratory No chest congestion 2016 Respiratory No chest tightness 2016 Respiratory No cough 04/25/2017 Gastrointestinal No abdominal pain 2016 Gastrointestinal No constipation 2016 Gastrointestinal No diarrhea 04/25/2017 Gastrointestinal No nausea 04/25/2017 Gastrointestinal No vomiting 04/25/2017 Genitourinary/Nephrology No dysuria 04/25 Musculoskeletal No stiffness 04/25/2017 Musculoskeletal No arthralgia(s) 2016 Musculoskeletal No joint complaint 2016 Dermatologic No rash 04/25/2017 Dermatologic sores 04/25/2017 Dermatologic No scar 04/25/2017 Neurologic No alteration of consciousness 04/25/2017 Neurologic memory loss 04/25/2017 Psychiatric anxiety 04/25/2017 Psychiatric depression 04/25/2017 Psychiatric disturbances of emotion 04/25 Psychiatric disturbances of memory 2016 Psychiatric disturbances of thinking Psychiatric hallucination 04/25/2017 Constitutional No anorexia 03/22/2017 Constitutional No night sweats 2016 Constitutional No chills 03/22/2017 Constitutional No diaphoresis 03/22/2017 Constitutional fatigue 03/22/2017 Constitutional No fever 03/22/2017 Constitutional No insomnia 03/22/2017 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 Eyes No eye discharge 03/22/2017 Eyes No eye erythema 03/22/2017 Eyes macular degeneration 03/22/2017 Ears/Nose/Throat/Neck No dizziness 2016 Ears/Nose/Throat/Neck No headache 2016 Ears/Nose/Throat/Neck No nasal allergies 03/22/2017 Ears/Nose/Throat/Neck No nasal discharge 03/22/2017 Ears/Nose/Throat/Neck No otalgia 2016 Ears/Nose/Throat/Neck No sinus congestion 03/22/2017 Cardiovascular No chest pain/pressure Cardiovascular No dyspnea 03/22/2017 Cardiovascular No edema 03/22/2017 Respiratory No chest congestion 2016 Respiratory No chest tightness 2016 Respiratory No cough 03/22/2017 Gastrointestinal No abdominal pain 2016 Gastrointestinal No constipation 2016 Gastrointestinal No diarrhea 03/22/2017 Gastrointestinal No nausea 03/22/2017 Gastrointestinal No vomiting 03/22/2017 Genitourinary/Nephrology No dysuria 03/22 Musculoskeletal No stiffness 03/22/2017 Musculoskeletal No arthralgia(s) 2016 Musculoskeletal No joint complaint 2016 Dermatologic No rash 03/22/2017 Dermatologic sores 03/22/2017 Dermatologic No scar 03/22/2017 Neurologic No alteration of consciousness 03/22/2017 Neurologic memory loss 03/22/2017 Psychiatric anxiety 03/22/2017 Psychiatric depression 03/22/2017 Psychiatric disturbances of emotion 03/22 Psychiatric disturbances of memory 2016 Psychiatric disturbances of thinking Psychiatric hallucination 03/22/2017 Constitutional No anorexia 12/21/2016 Constitutional No night sweats 2016 Constitutional No chills 12/21/2016 Constitutional No diaphoresis 12/21/2016 Constitutional fatigue 12/21/2016 Constitutional No fever 12/21/2016 Constitutional No insomnia 12/21/2016 Eyes blindness 12/21/2016 Eyes No eye discharge 12/21/2016 Eyes No eye erythema 12/21/2016 Eyes macular degeneration 12/21/2016 Ears/Nose/Throat/Neck No dizziness 2016 Ears/Nose/Throat/Neck No headache 2016 Ears/Nose/Throat/Neck No nasal allergies 12/21/2016 Ears/Nose/Throat/Neck No nasal discharge 12/21/2016 Ears/Nose/Throat/Neck No otalgia 2016 Ears/Nose/Throat/Neck No sinus congestion 12/21/2016 Cardiovascular No chest pain/pressure Cardiovascular No dyspnea 12/21/2016 Cardiovascular No edema 12/21/2016 Respiratory No chest congestion 2016 Respiratory No chest tightness 2016 Respiratory No cough 12/21/2016 Gastrointestinal No abdominal pain 2016 Gastrointestinal No constipation 2016 Gastrointestinal No diarrhea 12/21/2016 Gastrointestinal No nausea 12/21/2016 Gastrointestinal No vomiting 12/21/2016 Genitourinary/Nephrology No dysuria 12/21 Musculoskeletal No stiffness 12/21/2016 Musculoskeletal No arthralgia(s) 2016 Musculoskeletal No joint complaint 2016 Dermatologic No rash 12/21/2016 Dermatologic sores 12/21/2016 Dermatologic No scar 12/21/2016 Neurologic No alteration of consciousness 12/21/2016 Neurologic memory loss 12/21/2016 Psychiatric anxiety 12/21/2016 Psychiatric depression 12/21/2016 Psychiatric disturbances of emotion 12/21 Psychiatric disturbances of memory 2016 Psychiatric disturbances of thinking Psychiatric hallucination 12/21/2016 Constitutional No anorexia 09/21/2016 Constitutional No night sweats 2015 Constitutional No chills 09/21/2016 Constitutional No diaphoresis 09/21/2016 Constitutional fatigue 09/21/2016 Constitutional No fever 09/21/2016 Constitutional No insomnia 09/21/2016 Eyes blindness 09/21/2016 Eyes No eye discharge 09/21/2016 Eyes No eye erythema 09/21/2016 Eyes macular degeneration 09/21/2016 Ears/Nose/Throat/Neck No dizziness 2015 Ears/Nose/Throat/Neck No headache 2015 Ears/Nose/Throat/Neck No nasal allergies 09/21/2016 Ears/Nose/Throat/Neck No nasal discharge 09/21/2016 Ears/Nose/Throat/Neck No otalgia 2015 Ears/Nose/Throat/Neck No sinus congestion 09/21/2016 Cardiovascular No chest pain/pressure Cardiovascular No dyspnea 09/21/2016 Cardiovascular No edema 09/21/2016 Respiratory No chest congestion 2015 Respiratory No chest tightness 2015 Respiratory No cough 09/21/2016 Gastrointestinal No abdominal pain 2015 Gastrointestinal No constipation 2015 Gastrointestinal No diarrhea 09/21/2016 Gastrointestinal No nausea 09/21/2016 Gastrointestinal No vomiting 09/21/2016 Genitourinary/Nephrology No dysuria 09/21 Musculoskeletal No stiffness 09/21/2016 Musculoskeletal No arthralgia(s) 2015 Musculoskeletal No joint complaint 2015 Dermatologic No rash 09/21/2016 Dermatologic sores 09/21/2016 Dermatologic No scar 09/21/2016 Neurologic No alteration of consciousness 09/21/2016 Neurologic memory loss 09/21/2016 Psychiatric anxiety 09/21/2016 Psychiatric depression 09/21/2016 Psychiatric disturbances of emotion 09/21 Psychiatric disturbances of memory 2015 Psychiatric disturbances of thinking Psychiatric hallucination 09/21/2016 Constitutional No anorexia 06/22/2016 Constitutional No night sweats 2015 Constitutional No chills 06/22/2016 Constitutional No diaphoresis 06/22/2016 Constitutional fatigue 06/22/2016 Constitutional No fever 06/22/2016 Constitutional No insomnia 06/22/2016 Eyes blindness 06/22/2016 Eyes No eye discharge 06/22/2016 Eyes No eye erythema 06/22/2016 Eyes macular degeneration 06/22/2016 Ears/Nose/Throat/Neck No dizziness 2015 Ears/Nose/Throat/Neck No headache 2015 Ears/Nose/Throat/Neck No nasal allergies 06/22/2016 Ears/Nose/Throat/Neck No nasal discharge 06/22/2016 Ears/Nose/Throat/Neck No otalgia 2015 Ears/Nose/Throat/Neck No sinus congestion 06/22/2016 Cardiovascular No chest pain/pressure Cardiovascular No dyspnea 06/22/2016 Cardiovascular No edema 06/22/2016 Respiratory No chest congestion 2015 Respiratory No chest tightness 2015 Respiratory No cough 06/22/2016 Gastrointestinal No abdominal pain 2015 Gastrointestinal No constipation 2015 Gastrointestinal No diarrhea 06/22/2016 Gastrointestinal No nausea 06/22/2016 Gastrointestinal No vomiting 06/22/2016 Genitourinary/Nephrology No dysuria 06/22 Musculoskeletal No stiffness 06/22/2016 Musculoskeletal No arthralgia(s) 2015 Musculoskeletal No joint complaint 2015 Dermatologic No rash 06/22/2016 Dermatologic sores 06/22/2016 Dermatologic No scar 06/22/2016 Neurologic No alteration of consciousness 06/22/2016 Neurologic memory loss 06/22/2016 Psychiatric anxiety 06/22/2016 Psychiatric depression 06/22/2016 Psychiatric disturbances of emotion 06/22 Psychiatric disturbances of memory 2015 Psychiatric disturbances of thinking Psychiatric hallucination 06/22/2016 Constitutional recent illness 03/23/2016 Constitutional No anorexia 03/23/2016 Constitutional No night sweats 2015 Constitutional No chills 03/23/2016 Constitutional No diaphoresis 03/23/2016 Constitutional fatigue 03/23/2016 Constitutional No fever 03/23/2016 Constitutional No insomnia 03/23/2016 Constitutional malaise 03/23/2016 Eyes blindness 03/23/2016 Eyes No eye discharge 03/23/2016 Eyes No eye erythema 03/23/2016 Eyes macular degeneration 03/23/2016 Ears/Nose/Throat/Neck No dizziness 2015 Ears/Nose/Throat/Neck No headache 2015 Ears/Nose/Throat/Neck No nasal allergies 03/23/2016 Ears/Nose/Throat/Neck No nasal discharge 03/23/2016 Ears/Nose/Throat/Neck No otalgia 2015 Ears/Nose/Throat/Neck No sinus congestion 03/23/2016 Cardiovascular No chest pain/pressure Cardiovascular No dyspnea 03/23/2016 Cardiovascular No edema 03/23/2016 Respiratory No chest congestion 2015 Respiratory No chest tightness 2015 Respiratory No cough 03/23/2016 Gastrointestinal No abdominal pain 2015 Gastrointestinal No constipation 2015 Gastrointestinal No diarrhea 03/23/2016 Gastrointestinal No nausea 03/23/2016 Gastrointestinal No vomiting 03/23/2016 Genitourinary/Nephrology No dysuria 03/23 Musculoskeletal No stiffness 03/23/2016 Musculoskeletal No arthralgia(s) 2015 Musculoskeletal No joint complaint 2015 Dermatologic No rash 03/23/2016 Dermatologic sores 03/23/2016 Dermatologic No scar 03/23/2016 Neurologic No alteration of consciousness 03/23/2016 Neurologic memory loss 03/23/2016 Psychiatric anxiety 03/23/2016 Psychiatric depression 03/23/2016 Psychiatric disturbances of emotion 03/23 Psychiatric disturbances of memory 2015 Psychiatric disturbances of thinking Psychiatric hallucination 03/23/2016 Constitutional No anorexia 12/16/2015 Constitutional No night sweats 2015 Constitutional No chills 12/16/2015 Constitutional No diaphoresis 12/16/2015 Constitutional fatigue 12/16/2015 Constitutional No fever 12/16/2015 Constitutional No insomnia 12/16/2015 Eyes blindness 12/16/2015 Eyes No eye discharge 12/16/2015 Eyes No eye erythema 12/16/2015 Eyes macular degeneration 12/16/2015 Ears/Nose/Throat/Neck No dizziness 2015 Ears/Nose/Throat/Neck No headache 2015 Ears/Nose/Throat/Neck No nasal allergies 12/16/2015 Ears/Nose/Throat/Neck No nasal discharge 12/16/2015 Ears/Nose/Throat/Neck No otalgia 2015 Ears/Nose/Throat/Neck No sinus congestion 12/16/2015 Cardiovascular No chest pain/pressure 07/2016 Cardiovascular No dyspnea 12/16/2015 Cardiovascular No edema 12/16/2015 Respiratory No chest congestion 2015 Respiratory No chest tightness 2015 Respiratory No cough 12/16/2015 Gastrointestinal No abdominal pain 2015 Gastrointestinal No constipation 2015 Gastrointestinal No diarrhea 12/16/2015 Gastrointestinal No nausea 12/16/2015 Gastrointestinal No vomiting 12/16/2015 Genitourinary/Nephrology No dysuria 12/15 Musculoskeletal No stiffness 12/16/2015 Musculoskeletal No arthralgia(s) 2015 Musculoskeletal No joint complaint 2015 Dermatologic No rash 12/16/2015 Dermatologic sores 12/16/2015 Dermatologic No scar 12/16/2015 Neurologic No alteration of consciousness 12/16/2015 Neurologic memory loss 12/16/2015 Psychiatric anxiety 12/16/2015 Psychiatric depression 12/16/2015 Psychiatric disturbances of emotion 12/15 Psychiatric disturbances of memory 2015 Psychiatric disturbances of thinking 07/2016 Psychiatric hallucination 12/16/2015 Constitutional No anorexia 09/16/2015 Constitutional No night sweats 2014 Constitutional No chills 09/16/2015 Constitutional No diaphoresis 09/16/2015 Constitutional fatigue 09/16/2015 Constitutional No fever 09/16/2015 Constitutional No insomnia 09/16/2015 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 Eyes No eye discharge 09/16/2015 Eyes No eye erythema 09/16/2015 Eyes macular degeneration 09/16/2015 Ears/Nose/Throat/Neck No dizziness 2014 Ears/Nose/Throat/Neck No headache 2014 Ears/Nose/Throat/Neck No nasal allergies 09/16/2015 Ears/Nose/Throat/Neck No nasal discharge 09/16/2015 Ears/Nose/Throat/Neck No otalgia 2014 Ears/Nose/Throat/Neck No sinus congestion 09/16/2015 Cardiovascular No chest pain/pressure 07/2015 Cardiovascular No dyspnea 09/16/2015 Cardiovascular No edema 09/16/2015 Respiratory No chest congestion 2014 Respiratory No chest tightness 2014 Respiratory No cough 09/16/2015 Gastrointestinal No abdominal pain 2014 Gastrointestinal No constipation 2014 Gastrointestinal No diarrhea 09/16/2015 Gastrointestinal No nausea 09/16/2015 Gastrointestinal No vomiting 09/16/2015 Genitourinary/Nephrology No dysuria 09/16 Musculoskeletal No stiffness 09/16/2015 Musculoskeletal No arthralgia(s) 2014 Musculoskeletal No joint complaint 2014 Dermatologic No rash 09/16/2015 Dermatologic sores 09/16/2015 Dermatologic No scar 09/16/2015 Neurologic No alteration of consciousness 09/16/2015 Neurologic memory loss 09/16/2015 Psychiatric anxiety 09/16/2015 Psychiatric depression 09/16/2015 Psychiatric disturbances of emotion 09/16 Psychiatric disturbances of memory 2014 Psychiatric disturbances of thinking 07/2015 Psychiatric hallucination 09/16/2015 Constitutional recent illness 07/01/2015 Constitutional No anorexia 07/01/2015 Constitutional No night sweats 2014 Constitutional No chills 07/01/2015 Constitutional No diaphoresis 07/01/2015 Constitutional fatigue 07/01/2015 Constitutional No fever 07/01/2015 Constitutional No insomnia 07/01/2015 Constitutional malaise 07/01/2015 Eyes blindness 07/01/2015 Eyes No eye discharge 07/01/2015 Eyes No eye erythema 07/01/2015 Eyes macular degeneration 07/01/2015 Ears/Nose/Throat/Neck No dizziness 2014 Ears/Nose/Throat/Neck No headache 2014 Ears/Nose/Throat/Neck No nasal allergies 07/01/2015 Ears/Nose/Throat/Neck No nasal discharge 07/01/2015 Ears/Nose/Throat/Neck No otalgia 2014 Ears/Nose/Throat/Neck No sinus congestion 07/01/2015 Cardiovascular No chest pain/pressure Cardiovascular No dyspnea 07/01/2015 Cardiovascular No edema 07/01/2015 Respiratory No chest congestion 2014 Respiratory No chest tightness 2014 Respiratory No cough 07/01/2015 Gastrointestinal No abdominal pain 2014 Gastrointestinal No constipation 2014 Gastrointestinal No diarrhea 07/01/2015 Gastrointestinal No nausea 07/01/2015 Gastrointestinal No vomiting 07/01/2015 Genitourinary/Nephrology No dysuria 07/01 Musculoskeletal No stiffness 07/01/2015 Musculoskeletal No arthralgia(s) 2014 Musculoskeletal No joint complaint 2014 Dermatologic No rash 07/01/2015 Dermatologic sores 07/01/2015 Dermatologic No scar 07/01/2015 Neurologic No alteration of consciousness 07/01/2015 Neurologic memory loss 07/01/2015 Psychiatric anxiety 07/01/2015 Psychiatric depression 07/01/2015 Psychiatric disturbances of emotion 07/01 Psychiatric disturbances of memory 2014 Psychiatric disturbances of thinking Psychiatric hallucination 07/01/2015 Constitutional recent illness 02/25/2015 Constitutional No anorexia 02/25/2015 Constitutional No night sweats 2014 Constitutional No chills 02/25/2015 Constitutional No diaphoresis 02/25/2015 Constitutional fatigue 02/25/2015 Constitutional No fever 02/25/2015 Constitutional No insomnia 02/25/2015 Constitutional malaise 02/25/2015 Eyes blindness 02/25/2015 Eyes No eye discharge 02/25/2015 Eyes No eye erythema 02/25/2015 Eyes macular degeneration 02/25/2015 Ears/Nose/Throat/Neck No dizziness 2014 Ears/Nose/Throat/Neck No headache 2014 Ears/Nose/Throat/Neck No nasal allergies 02/25/2015 Ears/Nose/Throat/Neck No nasal discharge 02/25/2015 Ears/Nose/Throat/Neck No otalgia 2014 Ears/Nose/Throat/Neck No sinus congestion 02/25/2015 Cardiovascular No chest pain/pressure Cardiovascular No dyspnea 02/25/2015 Cardiovascular No edema 02/25/2015 Respiratory No chest congestion 2014 Respiratory No chest tightness 2014 Respiratory No cough 02/25/2015 Gastrointestinal No abdominal pain 2014 Gastrointestinal No constipation 2014 Gastrointestinal No diarrhea 02/25/2015 Gastrointestinal No nausea 02/25/2015 Gastrointestinal No vomiting 02/25/2015 Genitourinary/Nephrology No dysuria 02/25 Musculoskeletal No stiffness 02/25/2015 Musculoskeletal No arthralgia(s) 2014 Musculoskeletal No joint complaint 2014 Dermatologic No rash 02/25/2015 Dermatologic sores 02/25/2015 Dermatologic No scar 02/25/2015 Neurologic No alteration of consciousness 02/25/2015 Neurologic memory loss 02/25/2015 Psychiatric anxiety 02/25/2015 Psychiatric depression 02/25/2015 Psychiatric disturbances of emotion 02/25 Psychiatric disturbances of memory 2014 Psychiatric disturbances of thinking Psychiatric hallucination 02/25/2015 Constitutional recent illness 11/19/2014 Constitutional No anorexia 11/19/2014 Constitutional No night sweats 2014 Constitutional No chills 11/19/2014 Constitutional No diaphoresis 11/19/2014 Constitutional fatigue 11/19/2014 Constitutional No fever 11/19/2014 Constitutional No insomnia 11/19/2014 Constitutional malaise 11/19/2014 Eyes blindness 11/19/2014 Eyes No eye discharge 11/19/2014 Eyes No eye erythema 11/19/2014 Eyes macular degeneration 11/19/2014 Ears/Nose/Throat/Neck No dizziness 2014 Ears/Nose/Throat/Neck No headache 2014 Ears/Nose/Throat/Neck No nasal allergies 11/19/2014 Ears/Nose/Throat/Neck No nasal discharge 11/19/2014 Ears/Nose/Throat/Neck No otalgia 2014 Ears/Nose/Throat/Neck No sinus congestion 11/19/2014 Cardiovascular No chest pain/pressure 09/2015 Cardiovascular No dyspnea 11/19/2014 Cardiovascular No edema 11/19/2014 Respiratory No chest congestion 2014 Respiratory No chest tightness 2014 Respiratory No cough 11/19/2014 Gastrointestinal No abdominal pain 2014 Gastrointestinal No constipation 2014 Gastrointestinal No diarrhea 11/19/2014 Gastrointestinal No nausea 11/19/2014 Gastrointestinal No vomiting 11/19/2014 Genitourinary/Nephrology No dysuria 11/19 Musculoskeletal No stiffness 11/19/2014 Musculoskeletal No arthralgia(s) 2014 Musculoskeletal No joint complaint 2014 Dermatologic No rash 11/19/2014 Dermatologic sores 11/19/2014 Dermatologic No scar 11/19/2014 Neurologic No alteration of consciousness 11/19/2014 Neurologic memory loss 11/19/2014 Psychiatric anxiety 11/19/2014 Psychiatric depression 11/19/2014 Psychiatric disturbances of emotion 11/19 Psychiatric disturbances of memory 2014 Psychiatric disturbances of thinking 09/2015 Psychiatric hallucination 11/19/2014 Constitutional No recent illness 2013 Constitutional No anorexia 08/13/2014 Constitutional No night sweats 2013 Constitutional No chills 08/13/2014 Constitutional No diaphoresis 08/13/2014 Constitutional No fatigue 08/13/2014 Constitutional No fever 08/13/2014 Constitutional No insomnia 08/13/2014 Constitutional No malaise 08/13/2014 Eyes blindness 08/13/2014 Eyes No eye discharge 08/13/2014 Eyes No eye erythema 08/13/2014 Eyes macular degeneration 08/13/2014 Ears/Nose/Throat/Neck No dizziness 2013 Ears/Nose/Throat/Neck No headache 2013 Ears/Nose/Throat/Neck No nasal allergies 08/13/2014 Ears/Nose/Throat/Neck No nasal discharge 08/13/2014 Ears/Nose/Throat/Neck No otalgia 2013 Ears/Nose/Throat/Neck No sinus congestion 08/13/2014 Cardiovascular No chest pain/pressure 03/2014 Cardiovascular No dyspnea 08/13/2014 Cardiovascular No edema 08/13/2014 Respiratory No chest congestion 2013 Respiratory No chest tightness 2013 Respiratory No cough 08/13/2014 Gastrointestinal No abdominal pain 2013 Gastrointestinal No constipation 2013 Gastrointestinal No diarrhea 08/13/2014 Gastrointestinal No nausea 08/13/2014 Gastrointestinal No vomiting 08/13/2014 Genitourinary/Nephrology No dysuria 08/13 Musculoskeletal No stiffness 08/13/2014 Musculoskeletal No arthralgia(s) 2013 Musculoskeletal No joint complaint 2013 Dermatologic No rash 08/13/2014 Dermatologic sores 08/13/2014 Dermatologic No scar 08/13/2014 Neurologic No alteration of consciousness 08/13/2014 Neurologic memory loss 08/13/2014 Psychiatric anxiety 08/13/2014 Psychiatric depression 08/13/2014 Psychiatric disturbances of emotion 08/13 Psychiatric disturbances of memory 2013 Psychiatric disturbances of thinking 03/2014 Psychiatric hallucination 08/13/2014 Constitutional No recent illness 2013 Constitutional No anorexia 06/11/2014 Constitutional No night sweats 2013 Constitutional No chills 06/11/2014 Constitutional No diaphoresis 06/11/2014 Constitutional No fatigue 06/11/2014 Constitutional No fever 06/11/2014 Constitutional No insomnia 06/11/2014 Constitutional No malaise 06/11/2014 Eyes No eye discharge 06/11/2014 Eyes No eye erythema 06/11/2014 Ears/Nose/Throat/Neck No nasal allergies 06/11/2014 Ears/Nose/Throat/Neck No nasal discharge 06/11/2014 Ears/Nose/Throat/Neck No otalgia 2013 Ears/Nose/Throat/Neck No sinus congestion 06/11/2014 Respiratory No chest congestion 2013 Respiratory No cough 06/11/2014 Cardiovascular No chest pain/pressure 01/2014 Gastrointestinal No abdominal pain 2013 Gastrointestinal No constipation 2013 Gastrointestinal No diarrhea 06/11/2014 Gastrointestinal No nausea 06/11/2014 Gastrointestinal No vomiting 06/11/2014 Genitourinary/Nephrology No dysuria 06/11 Musculoskeletal No joint complaint 2013 Dermatologic No rash 06/11/2014 Dermatologic sores 06/11/2014 Neurologic No alteration of consciousness 06/11/2014 Neurologic memory loss 06/11/2014 Psychiatric anxiety 06/11/2014 Psychiatric depression 06/11/2014 Eyes blindness 06/11/2014 Eyes macular degeneration 06/11/2014 Ears/Nose/Throat/Neck No dizziness 2013 Ears/Nose/Throat/Neck No headache 2013 Cardiovascular No dyspnea 06/11/2014 Cardiovascular No edema 06/11/2014 Respiratory No chest tightness 2013 Musculoskeletal No stiffness 06/11/2014 Musculoskeletal No arthralgia(s) 2013 Dermatologic No scar 06/11/2014 Psychiatric disturbances of emotion 06/11 Psychiatric disturbances of memory 2013 Psychiatric disturbances of thinking 01/2014 Psychiatric hallucination 06/11/2014 Constitutional No recent illness 2013 Constitutional No anorexia 04/16/2014 Constitutional No night sweats 2013 Constitutional No chills 04/16/2014 Constitutional No diaphoresis 04/16/2014 Constitutional No fatigue 04/16/2014 Constitutional No fever 04/16/2014 Constitutional No insomnia 04/16/2014 Constitutional No malaise 04/16/2014 Eyes No eye discharge 04/16/2014 Eyes No eye erythema 04/16/2014 Ears/Nose/Throat/Neck oral pain 2013 Ears/Nose/Throat/Neck oral lesion 2013 Cardiovascular No chest pain/pressure 07/2014 Respiratory No cough 04/16/2014 Gastrointestinal No nausea 04/16/2014 Gastrointestinal No vomiting 04/16/2014 Genitourinary/Nephrology No dysuria 04/16 Musculoskeletal No joint complaint 2013 Dermatologic No rash 04/16/2014 Dermatologic No sores 04/16/2014 Constitutional recent illness 03/12/2014 Constitutional No night sweats 2013 Constitutional No chills 03/12/2014 Constitutional No fever 03/12/2014 Eyes blindness 03/12/2014 Eyes macular degeneration 03/12/2014 Ears/Nose/Throat/Neck No dizziness 2013 Ears/Nose/Throat/Neck No headache 2013 Cardiovascular No chest pain/pressure 02/2014 Cardiovascular No dyspnea 03/12/2014 Cardiovascular No edema 03/12/2014 Cardiovascular No fatigue 03/12/2014 Cardiovascular near-syncope/dizziness 02/2014 Respiratory No chest congestion 2013 Respiratory No chest tightness 2013 Respiratory No cough 03/12/2014 Gastrointestinal No abdominal pain 2013 Gastrointestinal No constipation 2013 Gastrointestinal No diarrhea 03/12/2014 Musculoskeletal No stiffness 03/12/2014 Musculoskeletal No arthralgia(s) 2013 Dermatologic No scar 03/12/2014 Psychiatric depression 03/12/2014 Psychiatric disturbances of emotion 03/12 Psychiatric disturbances of memory 2013 Psychiatric disturbances of thinking 02/2014 Psychiatric hallucination 03/12/2014 Dermatologic sores 03/12/2014 Genitourinary/Nephrology No dysuria 03/12 Genitourinary/Nephrology No urinary urgency 03/12/2014 Constitutional No recent illness 2013 Constitutional No night sweats 2013 Constitutional No chills 02/26/2014 Constitutional No fever 02/26/2014 Eyes blindness 02/26/2014 Eyes macular degeneration 02/26/2014 Ears/Nose/Throat/Neck No dizziness 2013 Ears/Nose/Throat/Neck No headache 2013 Cardiovascular No chest pain/pressure Cardiovascular No dyspnea 02/26/2014 Cardiovascular No edema 02/26/2014 Cardiovascular No fatigue 02/26/2014 Respiratory No chest congestion 2013 Respiratory No chest tightness 2013 Respiratory No cough 02/26/2014 Gastrointestinal No abdominal pain 2013 Gastrointestinal No constipation 2013 Gastrointestinal No diarrhea 02/26/2014 Musculoskeletal No stiffness 02/26/2014 Musculoskeletal No arthralgia(s) 2013 Dermatologic rash 02/26/2014 Dermatologic No scar 02/26/2014 Psychiatric depression 02/26/2014 Psychiatric disturbances of emotion 02/26 Psychiatric disturbances of memory 2013 Psychiatric disturbances of thinking Psychiatric hallucination 02/26/2014 Ears/Nose/Throat/Neck cerumen 02/26/2014 Constitutional weight loss 02/26/2014 Constitutional No recent illness 2013 Constitutional No night sweats 2013 Constitutional No chills 11/27/2013 Constitutional No fever 11/27/2013 Eyes blindness 11/27/2013 Eyes macular degeneration 11/27/2013 Ears/Nose/Throat/Neck No dizziness 2013 Ears/Nose/Throat/Neck No headache 2013 Cardiovascular No chest pain/pressure Cardiovascular No dyspnea 11/27/2013 Cardiovascular No edema 11/27/2013 Cardiovascular No fatigue 11/27/2013 Cardiovascular near-syncope/dizziness Respiratory No chest congestion 2013 Respiratory No chest tightness 2013 Respiratory No cough 11/27/2013 Gastrointestinal No abdominal pain 2013 Gastrointestinal No constipation 2013 Gastrointestinal No diarrhea 11/27/2013 Musculoskeletal No stiffness 11/27/2013 Musculoskeletal No arthralgia(s) 2013 Dermatologic No rash 11/27/2013 Dermatologic No scar 11/27/2013 Psychiatric depression 11/27/2013 Psychiatric disturbances of emotion 11/27 Psychiatric disturbances of memory 2013 Psychiatric disturbances of thinking Psychiatric hallucination 11/27/2013 Constitutional No recent illness 2013 Constitutional No night sweats 2013 Constitutional No chills 10/16/2013 Constitutional No fever 10/16/2013 Eyes blindness 10/16/2013 Eyes macular degeneration 10/16/2013 Ears/Nose/Throat/Neck No dizziness 2013 Ears/Nose/Throat/Neck No headache 2013 Cardiovascular No chest pain/pressure 06/2014 Cardiovascular No dyspnea 10/16/2013 Cardiovascular No edema 10/16/2013 Cardiovascular No fatigue 10/16/2013 Cardiovascular near-syncope/dizziness 06/2014 Respiratory No chest congestion 2013 Respiratory No chest tightness 2013 Respiratory No cough 10/16/2013 Gastrointestinal No abdominal pain 2013 Gastrointestinal No constipation 2013 Gastrointestinal No diarrhea 10/16/2013 Musculoskeletal No stiffness 10/16/2013 Musculoskeletal No arthralgia(s) 2013 Dermatologic No rash 10/16/2013 Dermatologic No scar 10/16/2013 Psychiatric depression 10/16/2013 Psychiatric disturbances of emotion 10/16 Psychiatric disturbances of memory 2013 Psychiatric disturbances of thinking 06/2014 Psychiatric hallucination 10/16/2013 Constitutional No recent illness 2012 Constitutional No night sweats 2012 Constitutional No chills 07/10/2013 Constitutional No fever 07/10/2013 Eyes blindness 07/10/2013 Eyes macular degeneration 07/10/2013 Ears/Nose/Throat/Neck No dizziness 2012 Ears/Nose/Throat/Neck No headache 2012 Cardiovascular No chest pain/pressure 12/2012 Cardiovascular No dyspnea 07/10/2013 Cardiovascular No edema 07/10/2013 Cardiovascular No fatigue 07/10/2013 Cardiovascular near-syncope/dizziness 12/2012 Respiratory No chest congestion 2012 Respiratory No chest tightness 2012 Respiratory No cough 07/10/2013 Gastrointestinal No abdominal pain 2012 Gastrointestinal No constipation 2012 Gastrointestinal No diarrhea 07/10/2013 Musculoskeletal No stiffness 07/10/2013 Musculoskeletal No arthralgia(s) 2012 Dermatologic No rash 07/10/2013 Dermatologic No scar 07/10/2013 Psychiatric depression 07/10/2013 Psychiatric disturbances of emotion 07/10 Psychiatric disturbances of memory 2012 Psychiatric disturbances of thinking 12/2012 Psychiatric hallucination 07/10/2013 Constitutional No recent illness 2012 Constitutional No night sweats 2012 Constitutional No chills 06/12/2013 Constitutional No fever 06/12/2013 Eyes blindness 06/12/2013 Eyes macular degeneration 06/12/2013 Ears/Nose/Throat/Neck No dizziness 2012 Ears/Nose/Throat/Neck No headache 2012 Cardiovascular No chest pain/pressure 02/2013 Cardiovascular No dyspnea 06/12/2013 Cardiovascular No edema 06/12/2013 Cardiovascular No fatigue 06/12/2013 Cardiovascular near-syncope/dizziness 02/2013 Respiratory No chest congestion 2012 Respiratory No chest tightness 2012 Respiratory No cough 06/12/2013 Gastrointestinal No abdominal pain 2012 Gastrointestinal No constipation 2012 Gastrointestinal No diarrhea 06/12/2013 Musculoskeletal No stiffness 06/12/2013 Musculoskeletal No arthralgia(s) 2012 Dermatologic No rash 06/12/2013 Dermatologic No scar 06/12/2013 Psychiatric depression 06/12/2013 Psychiatric disturbances of emotion 06/12 Psychiatric disturbances of memory 2012 Psychiatric disturbances of thinking 02/2013 Psychiatric hallucination 06/12/2013 Constitutional No recent illness 2012 Constitutional No night sweats 2012 Constitutional No chills 02/13/2013 Constitutional No fever 02/13/2013 Eyes blindness 02/13/2013 Eyes macular degeneration 02/13/2013 Ears/Nose/Throat/Neck No dizziness 2012 Ears/Nose/Throat/Neck No headache 2012 Cardiovascular No chest pain/pressure 06/2013 Cardiovascular No dyspnea 02/13/2013 Cardiovascular No edema 02/13/2013 Cardiovascular No fatigue 02/13/2013 Cardiovascular near-syncope/dizziness 06/2013 Respiratory No chest congestion 2012 Respiratory No chest tightness 2012 Respiratory No cough 02/13/2013 Gastrointestinal No abdominal pain 2012 Gastrointestinal No constipation 2012 Gastrointestinal No diarrhea 02/13/2013 Musculoskeletal No stiffness 02/13/2013 Musculoskeletal No arthralgia(s) 2012 Dermatologic No rash 02/13/2013 Dermatologic No scar 02/13/2013 Psychiatric depression 02/13/2013 Psychiatric disturbances of emotion 02/13 Psychiatric disturbances of memory 2012 Psychiatric disturbances of thinking 06/2013 Psychiatric hallucination 02/13/2013 Constitutional No recent illness 2012 Constitutional No night sweats 2012 Psychiatric hallucination 01/06/2013 Dermatologic No rash 01/06/2013 Dermatologic No scar 01/06/2013 Constitutional No chills 01/06/2013 Constitutional No fever 01/06/2013 Eyes blindness 01/06/2013 Eyes macular degeneration 01/06/2013 Ears/Nose/Throat/Neck No dizziness 2012 Ears/Nose/Throat/Neck No headache 2012 Cardiovascular No chest pain/pressure 10/2012 Cardiovascular No dyspnea 01/06/2013 Cardiovascular No edema 01/06/2013 Cardiovascular No fatigue 01/06/2013 Cardiovascular near-syncope/dizziness 10/2012 Respiratory No chest congestion 2012 Respiratory No chest tightness 2012 Respiratory No cough 01/06/2013 Gastrointestinal No abdominal pain 2012 Gastrointestinal No constipation 2012 Gastrointestinal No diarrhea 01/06/2013 Musculoskeletal No stiffness 01/06/2013 Musculoskeletal No arthralgia(s) 2012 Psychiatric depression 01/06/2013 Psychiatric disturbances of emotion 01/06 Psychiatric disturbances of memory 2012 Psychiatric disturbances of thinking 10/2012 Cardiovascular No chest pain/pressure Cardiovascular No dyspnea 09/19/2012 Cardiovascular No edema 09/19/2012 Cardiovascular No fatigue 09/19/2012 Cardiovascular near-syncope/dizziness Respiratory No chest congestion 2011 Respiratory No chest tightness 2011 Respiratory No cough 09/19/2012 Gastrointestinal No abdominal pain 2011 Gastrointestinal No constipation 2011 Gastrointestinal No diarrhea 09/19/2012 Musculoskeletal No stiffness 09/19/2012 Musculoskeletal No arthralgia(s) 2011 Psychiatric depression 09/19/2012 Psychiatric disturbances of emotion 09/19 Psychiatric disturbances of memory 2011 Psychiatric disturbances of thinking Psychiatric hallucination 09/19/2012 Constitutional No recent illness 2011 Constitutional No night sweats 2011 Constitutional No chills 09/19/2012 Constitutional No fever 09/19/2012 Eyes blindness 09/19/2012 Eyes macular degeneration 09/19/2012 Ears/Nose/Throat/Neck No dizziness 2011 Ears/Nose/Throat/Neck No headache 2011 Constitutional No recent illness 2011 Constitutional No anorexia 08/08/2012 Constitutional No night sweats 2011 Constitutional No chills 08/08/2012 Constitutional No diaphoresis 08/08/2012 Constitutional No fatigue 08/08/2012 Constitutional No fever 08/08/2012 Constitutional No insomnia 08/08/2012 Constitutional No malaise 08/08/2012 Eyes No eye discharge 08/08/2012 Eyes No eye erythema 08/08/2012 Cardiovascular No chest pain/pressure 10/2011 Gastrointestinal No abdominal pain 2011 Gastrointestinal No diarrhea 08/08/2012 Gastrointestinal No constipation 2011 Gastrointestinal No nausea 08/08/2012 Gastrointestinal No vomiting 08/08/2012 Genitourinary/Nephrology No dysuria 08/08 Constitutional No recent illness 2011 Constitutional No night sweats 2011 Constitutional No chills 05/23/2012 Constitutional No fever 05/23/2012 Eyes blindness 05/23/2012 Eyes macular degeneration 05/23/2012 Ears/Nose/Throat/Neck No dizziness 2011 Ears/Nose/Throat/Neck No headache 2011 Cardiovascular No chest pain/pressure Cardiovascular No dyspnea 05/23/2012 Cardiovascular No edema 05/23/2012 Cardiovascular No fatigue 05/23/2012 Cardiovascular near-syncope/dizziness Respiratory No chest congestion 2011 Respiratory No chest tightness 2011 Respiratory No cough 05/23/2012 Gastrointestinal No abdominal pain 2011 Gastrointestinal No constipation 2011 Gastrointestinal No diarrhea 05/23/2012 Musculoskeletal No stiffness 05/23/2012 Musculoskeletal No arthralgia(s) 2011 Psychiatric depression 05/23/2012 Psychiatric disturbances of emotion 05/23 Psychiatric disturbances of memory 2011 Psychiatric disturbances of thinking Psychiatric hallucination 05/23/2012 Constitutional No recent illness 2011 Constitutional No night sweats 2011 Constitutional No chills 04/04/2012 Constitutional No fever 04/04/2012 Eyes blindness 04/04/2012 Eyes macular degeneration 04/04/2012 Ears/Nose/Throat/Neck No dizziness 2011 Ears/Nose/Throat/Neck No headache 2011 Cardiovascular No chest pain/pressure Cardiovascular No dyspnea 04/04/2012 Cardiovascular No edema 04/04/2012 Cardiovascular No fatigue 04/04/2012 Cardiovascular near-syncope/dizziness Respiratory No chest congestion 2011 Respiratory No chest tightness 2011 Respiratory No cough 04/04/2012 Gastrointestinal No abdominal pain 2011 Gastrointestinal No constipation 2011 Gastrointestinal No diarrhea 04/04/2012 Musculoskeletal No stiffness 04/04/2012 Musculoskeletal No arthralgia(s) 2011 Psychiatric depression 04/04/2012 Psychiatric disturbances of emotion 04/04 Psychiatric disturbances of memory 2011 Psychiatric disturbances of thinking Psychiatric hallucination 04/04/2012 Constitutional No recent illness 2011 Constitutional No night sweats 2011 Constitutional No chills 03/21/2012 Constitutional No fever 03/21/2012 Eyes blindness 03/21/2012 Eyes macular degeneration 03/21/2012 Ears/Nose/Throat/Neck No dizziness 2011 Ears/Nose/Throat/Neck No headache 2011 Cardiovascular No chest pain/pressure Cardiovascular No dyspnea 03/21/2012 Cardiovascular No edema 03/21/2012 Cardiovascular No fatigue 03/21/2012 Cardiovascular near-syncope/dizziness Respiratory No cough 03/21/2012 Respiratory No chest tightness 2011 Respiratory No chest congestion 2011 Gastrointestinal No abdominal pain 2011 Gastrointestinal No constipation 2011 Gastrointestinal No diarrhea 03/21/2012 Musculoskeletal No stiffness 03/21/2012 Musculoskeletal No arthralgia(s) 2011 Psychiatric depression 03/21/2012 Psychiatric disturbances of emotion 03/21 Psychiatric disturbances of memory 2011 Psychiatric disturbances of thinking Psychiatric hallucination 03/21/2012 Physical Exam Exam Name System Name Item Name Status Result Effective Dates Notes Full Exam - General 1994 Constitutional general appearance Overall: well developed 11/22/2017 None Full Exam - General 1994 Constitutional general appearance Overall: in no acute distress 11/22/2017 None Full Exam - General 1994 Constitutional general appearance Overall: well nourished 11/22/2017 None Full Exam - General 1994 Eyes pupils and irises Overall: pupils equal, round, reactive to light and accomodation 11/22/2017 None Full Exam - General 1994 Ears/Nose/Throat otoscopic exam Overall: external auditory canals clear 11/22/2017 None Full Exam - General 1994 Ears/Nose/Throat otoscopic exam Overall: tympanic membranes clear 11/22/2017 None Full Exam - General 1994 Ears/Nose/Throat lips/teeth/gingiva Lips: dry 11/22/2017 None Full Exam - General 1994 Ears/Nose/Throat oral cavity/pharynx/larynx Overall: oral mucosa clear 11/22/2017 None Full Exam - General 1994 Ears/Nose/Throat oral cavity/pharynx/larynx Overall: oropharyngeal mucosa clear 11/22/2017 None Full Exam - General 1994 Ears/Nose/Throat oral cavity/pharynx/larynx Overall: no masses 11/22/2017 None Full Exam - General 1994 Respiratory auscultation Overall: breath sounds clear bilaterally 11/22/2017 None Full Exam - General 1994 Respiratory respiratory effort/rhythm Overall: no retractions 11/22/2017 None Full Exam - General 1994 Respiratory respiratory effort/rhythm Overall: normal rate 11/22/2017 None Full Exam - General 1994 Cardiovascular extremities Overall: no clubbing 11/22/2017 None Full Exam - General 1994 Cardiovascular auscultation of heart Overall: regular rate 11/22/2017 None Full Exam - General 1994 Cardiovascular auscultation of heart Overall: normal heart sounds 11/22/2017 None Full Exam - General 1994 Cardiovascular auscultation of heart Overall: no murmurs 11/22/2017 None Full Exam - General 1994 Abdomen abdominal exam Overall: no tenderness 11/22/2017 None Full Exam - General 1994 Abdomen abdominal exam Overall: normal bowel sounds 11/22/2017 None Full Exam - General 1994 Lymphatic neck nodes Overall: anterior cervical chain benign 11/22/2017 None Full Exam - General 1994 Lymphatic neck nodes Overall: posterior cervical chain benign 11/22/2017 None Full Exam - General 1994 Musculoskeletal spine, ribs and pelvis Posture: kyphosis 11/22/2017 None Full Exam - General 1994 Musculoskeletal head and neck Overall: head atraumatic 11/22/2017 None Full Exam - General 1994 Musculoskeletal head and neck Overall: cervical spine benign 11/22/2017 None Full Exam - General 1994 Integument inspection of skin Dermatitis: excoriation 11/22/2017 on scalp Full Exam - General 1994 Neurologic deep tendon reflexes Overall: deep tendon reflexes intact 11/22/2017 None Full Exam - General 1994 Neurologic gait Conventional walking: wide-based 11/22/2017 None Full Exam - General 1994 Psychiatric orientation/consciousness Oriented to person: yes 11/22/2017 None Full Exam - General 1994 Psychiatric orientation/consciousness Oriented to place: no 11/22/2017 None Full Exam - General 1994 Psychiatric orientation/consciousness Oriented to time: no 11/22/2017 None Full Exam - General 1994 Psychiatric orientation/consciousness Level of consciousness: alert 11/22/2017 None Full Exam - General 1994 Psychiatric mood and affect Overall: normal mood and affect 11/22/2017 None Full Exam - General 1994 Constitutional general appearance Overall: well developed 08/16/2017 None Full Exam - General 1994 Constitutional general appearance Overall: in no acute distress 08/16/2017 None Full Exam - General 1994 Constitutional general appearance Overall: well nourished 08/16/2017 None Full Exam - General 1994 Eyes pupils and irises Overall: pupils equal, round, reactive to light and accomodation 08/16/2017 None Full Exam - General 1994 Ears/Nose/Throat otoscopic exam Overall: external auditory canals clear 08/16/2017 None Full Exam - General 1994 Ears/Nose/Throat otoscopic exam Overall: tympanic membranes clear 08/16/2017 None Full Exam - General 1994 Ears/Nose/Throat lips/teeth/gingiva Lips: dry 08/16/2017 None Full Exam - General 1994 Ears/Nose/Throat oral cavity/pharynx/larynx Overall: oral mucosa clear 08/16/2017 None Full Exam - General 1994 Ears/Nose/Throat oral cavity/pharynx/larynx Overall: oropharyngeal mucosa clear 08/16/2017 None Full Exam - General 1994 Ears/Nose/Throat oral cavity/pharynx/larynx Overall: no masses 08/16/2017 None Full Exam - General 1994 Respiratory auscultation Overall: breath sounds clear bilaterally 08/16/2017 None Full Exam - General 1994 Respiratory respiratory effort/rhythm Overall: no retractions 08/16/2017 None Full Exam - General 1994 Respiratory respiratory effort/rhythm Overall: normal rate 08/16/2017 None Full Exam - General 1994 Cardiovascular extremities Overall: no clubbing 08/16/2017 None Full Exam - General 1994 Cardiovascular auscultation of heart Overall: regular rate 08/16/2017 None Full Exam - General 1994 Cardiovascular auscultation of heart Overall: normal heart sounds 08/16/2017 None Full Exam - General 1994 Cardiovascular auscultation of heart Overall: no murmurs 08/16/2017 None Full Exam - General 1994 Abdomen abdominal exam Overall: no tenderness 08/16/2017 None Full Exam - General 1994 Abdomen abdominal exam Overall: normal bowel sounds 08/16/2017 None Full Exam - General 1994 Lymphatic neck nodes Overall: anterior cervical chain benign 08/16/2017 None Full Exam - General 1994 Lymphatic neck nodes Overall: posterior cervical chain benign 08/16/2017 None Full Exam - General 1994 Musculoskeletal spine, ribs and pelvis Posture: kyphosis 08/16/2017 None Full Exam - General 1994 Musculoskeletal head and neck Overall: head atraumatic 08/16/2017 None Full Exam - General 1994 Musculoskeletal head and neck Overall: cervical spine benign 08/16/2017 None Full Exam - General 1994 Integument inspection of skin Dermatitis: excoriation 08/16/2017 on scalp Full Exam - General 1994 Neurologic deep tendon reflexes Overall: deep tendon reflexes intact 08/16/2017 None Full Exam - General 1994 Neurologic gait Conventional walking: wide-based 08/16/2017 None Full Exam - General 1994 Psychiatric orientation/consciousness Oriented to person: yes 08/16/2017 None Full Exam - General 1994 Psychiatric orientation/consciousness Oriented to place: no 08/16/2017 None Full Exam - General 1994 Psychiatric orientation/consciousness Oriented to time: no 08/16/2017 None Full Exam - General 1994 Psychiatric orientation/consciousness Level of consciousness: alert 08/16/2017 None Full Exam - General 1994 Psychiatric mood and affect Overall: normal mood and affect 08/16/2017 None Full Exam - General 1994 Constitutional general appearance Overall: well developed 05/17/2017 None Full Exam - General 1994 Constitutional general appearance Overall: in no acute distress 05/17/2017 None Full Exam - General 1994 Constitutional general appearance Overall: well nourished 05/17/2017 None Full Exam - General 1994 Eyes pupils and irises Overall: pupils equal, round, reactive to light and accomodation 05/17/2017 None Full Exam - General 1994 Ears/Nose/Throat otoscopic exam Overall: external auditory canals clear 05/17/2017 None Full Exam - General 1994 Ears/Nose/Throat otoscopic exam Overall: tympanic membranes clear 05/17/2017 None Full Exam - General 1994 Ears/Nose/Throat lips/teeth/gingiva Lips: dry 05/17/2017 None Full Exam - General 1994 Ears/Nose/Throat oral cavity/pharynx/larynx Overall: oral mucosa clear 05/17/2017 None Full Exam - General 1994 Ears/Nose/Throat oral cavity/pharynx/larynx Overall: oropharyngeal mucosa clear 05/17/2017 None Full Exam - General 1994 Ears/Nose/Throat oral cavity/pharynx/larynx Overall: no masses 05/17/2017 None Full Exam - General 1994 Respiratory auscultation Overall: breath sounds clear bilaterally 05/17/2017 None Full Exam - General 1994 Respiratory respiratory effort/rhythm Overall: no retractions 05/17/2017 None Full Exam - General 1994 Respiratory respiratory effort/rhythm Overall: normal rate 05/17/2017 None Full Exam - General 1994 Cardiovascular extremities Overall: no clubbing 05/17/2017 None Full Exam - General 1994 Cardiovascular auscultation of heart Overall: regular rate 05/17/2017 None Full Exam - General 1994 Cardiovascular auscultation of heart Overall: normal heart sounds 05/17/2017 None Full Exam - General 1994 Cardiovascular auscultation of heart Overall: no murmurs 05/17/2017 None Full Exam - General 1994 Abdomen abdominal exam Overall: no tenderness 05/17/2017 None Full Exam - General 1994 Abdomen abdominal exam Overall: normal bowel sounds 05/17/2017 None Full Exam - General 1994 Lymphatic neck nodes Overall: anterior cervical chain benign 05/17/2017 None Full Exam - General 1994 Lymphatic neck nodes Overall: posterior cervical chain benign 05/17/2017 None Full Exam - General 1994 Musculoskeletal head and neck Overall: head atraumatic 05/17/2017 None Full Exam - General 1994 Musculoskeletal head and neck Overall: cervical spine benign 05/17/2017 None Full Exam - General 1994 Integument inspection of skin Dermatitis: excoriation 05/17/2017 on scalp Full Exam - General 1994 Neurologic deep tendon reflexes Overall: deep tendon reflexes intact 05/17/2017 None Full Exam - General 1994 Neurologic gait Conventional walking: wide-based 05/17/2017 None Full Exam - General 1994 Psychiatric orientation/consciousness Oriented to person: yes 05/17/2017 None Full Exam - General 1994 Psychiatric orientation/consciousness Oriented to place: no 05/17/2017 None Full Exam - General 1994 Psychiatric orientation/consciousness Oriented to time: no 05/17/2017 None Full Exam - General 1994 Psychiatric orientation/consciousness Level of consciousness: alert 05/17/2017 None Full Exam - General 1994 Psychiatric mood and affect Overall: normal mood and affect 05/17/2017 None Full Exam - General 1994 Musculoskeletal spine, ribs and pelvis Posture: kyphosis 05/17/2017 None Full Exam - General 1994 Constitutional general appearance Overall: well developed 04/25/2017 None Full Exam - General 1994 Constitutional general appearance Overall: in no acute distress 04/25/2017 None Full Exam - General 1994 Constitutional general appearance Overall: well nourished 04/25/2017 None Full Exam - General 1994 Eyes pupils and irises Overall: pupils equal, round, reactive to light and accomodation 04/25/2017 None Full Exam - General 1994 Ears/Nose/Throat otoscopic exam Overall: external auditory canals clear 04/25/2017 None Full Exam - General 1994 Ears/Nose/Throat otoscopic exam Overall: tympanic membranes clear 04/25/2017 None Full Exam - General 1994 Ears/Nose/Throat lips/teeth/gingiva Lips: dry 04/25/2017 None Full Exam - General 1994 Ears/Nose/Throat oral cavity/pharynx/larynx Overall: oral mucosa clear 04/25/2017 None Full Exam - General 1994 Ears/Nose/Throat oral cavity/pharynx/larynx Overall: oropharyngeal mucosa clear 04/25/2017 None Full Exam - General 1994 Ears/Nose/Throat oral cavity/pharynx/larynx Overall: no masses 04/25/2017 None Full Exam - General 1994 Respiratory auscultation Overall: breath sounds clear bilaterally 04/25/2017 None Full Exam - General 1994 Respiratory respiratory effort/rhythm Overall: no retractions 04/25/2017 None Full Exam - General 1994 Respiratory respiratory effort/rhythm Overall: normal rate 04/25/2017 None Full Exam - General 1994 Cardiovascular extremities Overall: no clubbing 04/25/2017 None Full Exam - General 1994 Cardiovascular auscultation of heart Overall: regular rate 04/25/2017 None Full Exam - General 1994 Cardiovascular auscultation of heart Overall: normal heart sounds 04/25/2017 None Full Exam - General 1994 Cardiovascular auscultation of heart Overall: no murmurs 04/25/2017 None Full Exam - General 1994 Abdomen abdominal exam Overall: no tenderness 04/25/2017 None Full Exam - General 1994 Abdomen abdominal exam Overall: normal bowel sounds 04/25/2017 None Full Exam - General 1994 Lymphatic neck nodes Overall: anterior cervical chain benign 04/25/2017 None Full Exam - General 1994 Lymphatic neck nodes Overall: posterior cervical chain benign 04/25/2017 None Full Exam - General 1994 Musculoskeletal spine, ribs and pelvis Overall: ribs benign 04/25/2017 None Full Exam - General 1994 Musculoskeletal spine, ribs and pelvis Posture: kyphosis 04/25/2017 None Full Exam - General 1994 Musculoskeletal spine, ribs and pelvis Posture: lordosis 04/25/2017 None Full Exam - General 1994 Musculoskeletal head and neck Overall: head atraumatic 04/25/2017 None Full Exam - General 1994 Musculoskeletal head and neck Overall: cervical spine benign 04/25/2017 None Full Exam - General 1994 Integument inspection of skin Dermatitis: excoriation 04/25/2017 on scalp Full Exam - General 1994 Neurologic deep tendon reflexes Overall: deep tendon reflexes intact 04/25/2017 None Full Exam - General 1994 Neurologic gait Conventional walking: wide-based 04/25/2017 None Full Exam - General 1994 Psychiatric orientation/consciousness Oriented to person: yes 04/25/2017 None Full Exam - General 1994 Psychiatric orientation/consciousness Oriented to place: no 04/25/2017 None Full Exam - General 1994 Psychiatric orientation/consciousness Oriented to time: no 04/25/2017 None Full Exam - General 1994 Psychiatric orientation/consciousness Level of consciousness: alert 04/25/2017 None Full Exam - General 1994 Psychiatric mood and affect Overall: normal mood and affect 04/25/2017 None Full Exam - General 1994 Constitutional general appearance Overall: well developed 03/22/2017 None Full Exam - General 1994 Constitutional general appearance Overall: in no acute distress 03/22/2017 None Full Exam - General 1994 Constitutional general appearance Overall: well nourished 03/22/2017 None Full Exam - General 1994 Eyes pupils and irises Overall: pupils equal, round, reactive to light and accomodation 03/22/2017 None Full Exam - General 1994 Ears/Nose/Throat otoscopic exam Overall: external auditory canals clear 03/22/2017 None Full Exam - General 1994 Ears/Nose/Throat otoscopic exam Overall: tympanic membranes clear 03/22/2017 None Full Exam - General 1994 Ears/Nose/Throat lips/teeth/gingiva Lips: dry 03/22/2017 None Full Exam - General 1994 Ears/Nose/Throat oral cavity/pharynx/larynx Overall: oral mucosa clear 03/22/2017 None Full Exam - General 1994 Ears/Nose/Throat oral cavity/pharynx/larynx Overall: oropharyngeal mucosa clear 03/22/2017 None Full Exam - General 1994 Ears/Nose/Throat oral cavity/pharynx/larynx Overall: no masses 03/22/2017 None Full Exam - General 1994 Respiratory auscultation Overall: breath sounds clear bilaterally 03/22/2017 None Full Exam - General 1994 Respiratory respiratory effort/rhythm Overall: no retractions 03/22/2017 None Full Exam - General 1994 Respiratory respiratory effort/rhythm Overall: normal rate 03/22/2017 None Full Exam - General 1994 Cardiovascular extremities Overall: no clubbing 03/22/2017 None Full Exam - General 1994 Cardiovascular auscultation of heart Overall: regular rate 03/22/2017 None Full Exam - General 1994 Cardiovascular auscultation of heart Overall: normal heart sounds 03/22/2017 None Full Exam - General 1994 Cardiovascular auscultation of heart Overall: no murmurs 03/22/2017 None Full Exam - General 1994 Abdomen abdominal exam Overall: no tenderness 03/22/2017 None Full Exam - General 1994 Abdomen abdominal exam Overall: normal bowel sounds 03/22/2017 None Full Exam - General 1994 Lymphatic neck nodes Overall: anterior cervical chain benign 03/22/2017 None Full Exam - General 1994 Lymphatic neck nodes Overall: posterior cervical chain benign 03/22/2017 None Full Exam - General 1994 Musculoskeletal spine, ribs and pelvis Overall: ribs benign 03/22/2017 None Full Exam - General 1994 Musculoskeletal spine, ribs and pelvis Posture: kyphosis 03/22/2017 None Full Exam - General 1994 Musculoskeletal spine, ribs and pelvis Posture: lordosis 03/22/2017 None Full Exam - General 1994 Musculoskeletal head and neck Overall: head atraumatic 03/22/2017 None Full Exam - General 1994 Musculoskeletal head and neck Overall: cervical spine benign 03/22/2017 None Full Exam - General 1994 Integument inspection of skin Dermatitis: excoriation 03/22/2017 on scalp Full Exam - General 1994 Neurologic deep tendon reflexes Overall: deep tendon reflexes intact 03/22/2017 None Full Exam - General 1994 Neurologic gait Conventional walking: wide-based 03/22/2017 None Full Exam - General 1994 Psychiatric orientation/consciousness Oriented to person: yes 03/22/2017 None Full Exam - General 1994 Psychiatric orientation/consciousness Oriented to place: no 03/22/2017 None Full Exam - General 1994 Psychiatric orientation/consciousness Oriented to time: no 03/22/2017 None Full Exam - General 1994 Psychiatric orientation/consciousness Level of consciousness: alert 03/22/2017 None Full Exam - General 1994 Psychiatric mood and affect Overall: normal mood and affect 03/22/2017 None Full Exam - General 1994 Constitutional general appearance Overall: well developed 12/21/2016 None Full Exam - General 1994 Constitutional general appearance Overall: in no acute distress 12/21/2016 None Full Exam - General 1994 Constitutional general appearance Overall: well nourished 12/21/2016 None Full Exam - General 1994 Eyes pupils and irises Overall: pupils equal, round, reactive to light and accomodation 12/21/2016 None Full Exam - General 1994 Ears/Nose/Throat otoscopic exam Overall: external auditory canals clear 12/21/2016 None Full Exam - General 1994 Ears/Nose/Throat otoscopic exam Overall: tympanic membranes clear 12/21/2016 None Full Exam - General 1994 Ears/Nose/Throat lips/teeth/gingiva Lips: dry 12/21/2016 None Full Exam - General 1994 Ears/Nose/Throat oral cavity/pharynx/larynx Overall: oral mucosa clear 12/21/2016 None Full Exam - General 1994 Ears/Nose/Throat oral cavity/pharynx/larynx Overall: oropharyngeal mucosa clear 12/21/2016 None Full Exam - General 1994 Ears/Nose/Throat oral cavity/pharynx/larynx Overall: no masses 12/21/2016 None Full Exam - General 1994 Respiratory auscultation Overall: breath sounds clear bilaterally 12/21/2016 None Full Exam - General 1994 Respiratory respiratory effort/rhythm Overall: no retractions 12/21/2016 None Full Exam - General 1994 Respiratory respiratory effort/rhythm Overall: normal rate 12/21/2016 None Full Exam - General 1994 Cardiovascular extremities Overall: no clubbing 12/21/2016 None Full Exam - General 1994 Cardiovascular auscultation of heart Overall: regular rate 12/21/2016 None Full Exam - General 1994 Cardiovascular auscultation of heart Overall: normal heart sounds 12/21/2016 None Full Exam - General 1994 Cardiovascular auscultation of heart Overall: no murmurs 12/21/2016 None Full Exam - General 1994 Abdomen abdominal exam Overall: no tenderness 12/21/2016 None Full Exam - General 1994 Abdomen abdominal exam Overall: normal bowel sounds 12/21/2016 None Full Exam - General 1994 Lymphatic neck nodes Overall: anterior cervical chain benign 12/21/2016 None Full Exam - General 1994 Lymphatic neck nodes Overall: posterior cervical chain benign 12/21/2016 None Full Exam - General 1994 Musculoskeletal spine, ribs and pelvis Overall: ribs benign 12/21/2016 None Full Exam - General 1994 Musculoskeletal spine, ribs and pelvis Posture: kyphosis 12/21/2016 None Full Exam - General 1994 Musculoskeletal spine, ribs and pelvis Posture: lordosis 12/21/2016 None Full Exam - General 1994 Musculoskeletal head and neck Overall: head atraumatic 12/21/2016 None Full Exam - General 1994 Musculoskeletal head and neck Overall: cervical spine benign 12/21/2016 None Full Exam - General 1994 Integument inspection of skin Dermatitis: excoriation 12/21/2016 on scalp Full Exam - General 1994 Neurologic deep tendon reflexes Overall: deep tendon reflexes intact 12/21/2016 None Full Exam - General 1994 Neurologic gait Conventional walking: wide-based 12/21/2016 None Full Exam - General 1994 Psychiatric orientation/consciousness Oriented to person: yes 12/21/2016 None Full Exam - General 1994 Psychiatric orientation/consciousness Oriented to place: no 12/21/2016 None Full Exam - General 1994 Psychiatric orientation/consciousness Oriented to time: no 12/21/2016 None Full Exam - General 1994 Psychiatric orientation/consciousness Level of consciousness: alert 12/21/2016 None Full Exam - General 1994 Psychiatric mood and affect Overall: normal mood and affect 12/21/2016 None Full Exam - General 1994 Constitutional general appearance Overall: well developed 09/21/2016 None Full Exam - General 1994 Constitutional general appearance Overall: in no acute distress 09/21/2016 None Full Exam - General 1994 Constitutional general appearance Overall: well nourished 09/21/2016 None Full Exam - General 1994 Ears/Nose/Throat otoscopic exam Overall: external auditory canals clear 09/21/2016 None Full Exam - General 1994 Ears/Nose/Throat otoscopic exam Overall: tympanic membranes clear 09/21/2016 None Full Exam - General 1994 Ears/Nose/Throat lips/teeth/gingiva Lips: dry 09/21/2016 None Full Exam - General 1994 Ears/Nose/Throat oral cavity/pharynx/larynx Overall: oral mucosa clear 09/21/2016 None Full Exam - General 1994 Ears/Nose/Throat oral cavity/pharynx/larynx Overall: oropharyngeal mucosa clear 09/21/2016 None Full Exam - General 1994 Ears/Nose/Throat oral cavity/pharynx/larynx Overall: no masses 09/21/2016 None Full Exam - General 1994 Respiratory auscultation Overall: breath sounds clear bilaterally 09/21/2016 None Full Exam - General 1994 Respiratory respiratory effort/rhythm Overall: no retractions 09/21/2016 None Full Exam - General 1994 Respiratory respiratory effort/rhythm Overall: normal rate 09/21/2016 None Full Exam - General 1994 Cardiovascular extremities Overall: no clubbing 09/21/2016 None Full Exam - General 1994 Cardiovascular auscultation of heart Overall: regular rate 09/21/2016 None Full Exam - General 1994 Cardiovascular auscultation of heart Overall: normal heart sounds 09/21/2016 None Full Exam - General 1994 Cardiovascular auscultation of heart Overall: no murmurs 09/21/2016 None Full Exam - General 1994 Abdomen abdominal exam Overall: no tenderness 09/21/2016 None Full Exam - General 1994 Abdomen abdominal exam Overall: normal bowel sounds 09/21/2016 None Full Exam - General 1994 Lymphatic neck nodes Overall: anterior cervical chain benign 09/21/2016 None Full Exam - General 1994 Lymphatic neck nodes Overall: posterior cervical chain benign 09/21/2016 None Full Exam - General 1994 Musculoskeletal spine, ribs and pelvis Overall: ribs benign 09/21/2016 None Full Exam - General 1994 Musculoskeletal spine, ribs and pelvis Posture: kyphosis 09/21/2016 None Full Exam - General 1994 Musculoskeletal spine, ribs and pelvis Posture: lordosis 09/21/2016 None Full Exam - General 1994 Musculoskeletal head and neck Overall: head atraumatic 09/21/2016 None Full Exam - General 1994 Musculoskeletal head and neck Overall: cervical spine benign 09/21/2016 None Full Exam - General 1994 Integument inspection of skin Dermatitis: excoriation 09/21/2016 on scalp Full Exam - General 1994 Neurologic deep tendon reflexes Overall: deep tendon reflexes intact 09/21/2016 None Full Exam - General 1994 Neurologic gait Conventional walking: wide-based 09/21/2016 None Full Exam - General 1994 Psychiatric orientation/consciousness Oriented to person: yes 09/21/2016 None Full Exam - General 1994 Psychiatric orientation/consciousness Oriented to place: no 09/21/2016 None Full Exam - General 1994 Psychiatric orientation/consciousness Oriented to time: no 09/21/2016 None Full Exam - General 1994 Psychiatric orientation/consciousness Level of consciousness: alert 09/21/2016 None Full Exam - General 1994 Psychiatric mood and affect Overall: normal mood and affect 09/21/2016 None Full Exam - General 1994 Eyes pupils and irises Overall: pupils equal, round, reactive to light and accomodation 09/21/2016 None Full Exam - General 1994 Constitutional general appearance Overall: well developed 06/22/2016 None Full Exam - General 1994 Constitutional general appearance Overall: in no acute distress 06/22/2016 None Full Exam - General 1994 Constitutional general appearance Overall: well nourished 06/22/2016 None Full Exam - General 1994 Ears/Nose/Throat otoscopic exam Overall: external auditory canals clear 06/22/2016 None Full Exam - General 1994 Ears/Nose/Throat otoscopic exam Overall: tympanic membranes clear 06/22/2016 None Full Exam - General 1994 Ears/Nose/Throat lips/teeth/gingiva Lips: dry 06/22/2016 None Full Exam - General 1994 Ears/Nose/Throat oral cavity/pharynx/larynx Overall: oral mucosa clear 06/22/2016 None Full Exam - General 1994 Ears/Nose/Throat oral cavity/pharynx/larynx Overall: oropharyngeal mucosa clear 06/22/2016 None Full Exam - General 1994 Ears/Nose/Throat oral cavity/pharynx/larynx Overall: no masses 06/22/2016 None Full Exam - General 1994 Respiratory auscultation Overall: breath sounds clear bilaterally 06/22/2016 None Full Exam - General 1994 Respiratory respiratory effort/rhythm Overall: no retractions 06/22/2016 None Full Exam - General 1994 Respiratory respiratory effort/rhythm Overall: normal rate 06/22/2016 None Full Exam - General 1994 Cardiovascular extremities Overall: no clubbing 06/22/2016 None Full Exam - General 1994 Cardiovascular auscultation of heart Overall: regular rate 06/22/2016 None Full Exam - General 1994 Cardiovascular auscultation of heart Overall: normal heart sounds 06/22/2016 None Full Exam - General 1994 Cardiovascular auscultation of heart Overall: no murmurs 06/22/2016 None Full Exam - General 1994 Abdomen abdominal exam Overall: no tenderness 06/22/2016 None Full Exam - General 1994 Abdomen abdominal exam Overall: normal bowel sounds 06/22/2016 None Full Exam - General 1994 Lymphatic neck nodes Overall: anterior cervical chain benign 06/22/2016 None Full Exam - General 1994 Lymphatic neck nodes Overall: posterior cervical chain benign 06/22/2016 None Full Exam - General 1994 Musculoskeletal spine, ribs and pelvis Overall: ribs benign 06/22/2016 None Full Exam - General 1994 Musculoskeletal spine, ribs and pelvis Posture: kyphosis 06/22/2016 None Full Exam - General 1994 Musculoskeletal spine, ribs and pelvis Posture: lordosis 06/22/2016 None Full Exam - General 1994 Musculoskeletal head and neck Overall: head atraumatic 06/22/2016 None Full Exam - General 1994 Musculoskeletal head and neck Overall: cervical spine benign 06/22/2016 None Full Exam - General 1994 Integument inspection of skin Dermatitis: excoriation 06/22/2016 on scalp Full Exam - General 1994 Neurologic deep tendon reflexes Overall: deep tendon reflexes intact 06/22/2016 None Full Exam - General 1994 Neurologic gait Conventional walking: wide-based 06/22/2016 None Full Exam - General 1994 Psychiatric orientation/consciousness Oriented to person: yes 06/22/2016 None Full Exam - General 1994 Psychiatric orientation/consciousness Oriented to place: no 06/22/2016 None Full Exam - General 1994 Psychiatric orientation/consciousness Oriented to time: no 06/22/2016 None Full Exam - General 1994 Psychiatric orientation/consciousness Level of consciousness: alert 06/22/2016 None Full Exam - General 1994 Psychiatric mood and affect Overall: normal mood and affect 06/22/2016 None Full Exam - General 1994 Constitutional general appearance Overall: well developed 03/23/2016 None Full Exam - General 1994 Constitutional general appearance Overall: in no acute distress 03/23/2016 None Full Exam - General 1994 Constitutional general appearance Overall: well nourished 03/23/2016 None Full Exam - General 1994 Ears/Nose/Throat otoscopic exam Overall: external auditory canals clear 03/23/2016 None Full Exam - General 1994 Ears/Nose/Throat otoscopic exam Overall: tympanic membranes clear 03/23/2016 None Full Exam - General 1994 Ears/Nose/Throat lips/teeth/gingiva Lips: dry 03/23/2016 None Full Exam - General 1994 Ears/Nose/Throat oral cavity/pharynx/larynx Overall: oral mucosa clear 03/23/2016 None Full Exam - General 1994 Ears/Nose/Throat oral cavity/pharynx/larynx Overall: oropharyngeal mucosa clear 03/23/2016 None Full Exam - General 1994 Ears/Nose/Throat oral cavity/pharynx/larynx Overall: no masses 03/23/2016 None Full Exam - General 1994 Respiratory auscultation Overall: breath sounds clear bilaterally 03/23/2016 None Full Exam - General 1994 Respiratory respiratory effort/rhythm Overall: no retractions 03/23/2016 None Full Exam - General 1994 Respiratory respiratory effort/rhythm Overall: normal rate 03/23/2016 None Full Exam - General 1994 Cardiovascular extremities Overall: no clubbing 03/23/2016 None Full Exam - General 1994 Cardiovascular auscultation of heart Overall: regular rate 03/23/2016 None Full Exam - General 1994 Cardiovascular auscultation of heart Overall: normal heart sounds 03/23/2016 None Full Exam - General 1994 Cardiovascular auscultation of heart Overall: no murmurs 03/23/2016 None Full Exam - General 1994 Abdomen abdominal exam Overall: no tenderness 03/23/2016 None Full Exam - General 1994 Abdomen abdominal exam Overall: normal bowel sounds 03/23/2016 None Full Exam - General 1994 Lymphatic neck nodes Overall: anterior cervical chain benign 03/23/2016 None Full Exam - General 1994 Lymphatic neck nodes Overall: posterior cervical chain benign 03/23/2016 None Full Exam - General 1994 Musculoskeletal spine, ribs and pelvis Overall: ribs benign 03/23/2016 None Full Exam - General 1994 Musculoskeletal spine, ribs and pelvis Posture: kyphosis 03/23/2016 None Full Exam - General 1994 Musculoskeletal spine, ribs and pelvis Posture: lordosis 03/23/2016 None Full Exam - General 1994 Musculoskeletal head and neck Overall: head atraumatic 03/23/2016 None Full Exam - General 1994 Musculoskeletal head and neck Overall: cervical spine benign 03/23/2016 None Full Exam - General 1994 Integument inspection of skin Dermatitis: excoriation 03/23/2016 on scalp Full Exam - General 1994 Neurologic deep tendon reflexes Overall: deep tendon reflexes intact 03/23/2016 None Full Exam - General 1994 Neurologic gait Conventional walking: wide-based 03/23/2016 None Full Exam - General 1994 Psychiatric orientation/consciousness Oriented to person: yes 03/23/2016 None Full Exam - General 1994 Psychiatric orientation/consciousness Oriented to place: no 03/23/2016 None Full Exam - General 1994 Psychiatric orientation/consciousness Oriented to time: no 03/23/2016 None Full Exam - General 1994 Psychiatric orientation/consciousness Level of consciousness: alert 03/23/2016 None Full Exam - General 1994 Psychiatric mood and affect Overall: normal mood and affect 03/23/2016 None Full Exam - General 1994 Constitutional general appearance Overall: well developed 12/16/2015 None Full Exam - General 1994 Constitutional general appearance Overall: in no acute distress 12/16/2015 None Full Exam - General 1994 Constitutional general appearance Overall: well nourished 12/16/2015 None Full Exam - General 1994 Ears/Nose/Throat otoscopic exam Overall: external auditory canals clear 12/16/2015 None Full Exam - General 1994 Ears/Nose/Throat otoscopic exam Overall: tympanic membranes clear 12/16/2015 None Full Exam - General 1994 Ears/Nose/Throat lips/teeth/gingiva Lips: dry 12/16/2015 None Full Exam - General 1994 Ears/Nose/Throat oral cavity/pharynx/larynx Overall: oral mucosa clear 12/16/2015 None Full Exam - General 1994 Ears/Nose/Throat oral cavity/pharynx/larynx Overall: oropharyngeal mucosa clear 12/16/2015 None Full Exam - General 1994 Ears/Nose/Throat oral cavity/pharynx/larynx Overall: no masses 12/16/2015 None Full Exam - General 1994 Respiratory auscultation Overall: breath sounds clear bilaterally 12/16/2015 None Full Exam - General 1994 Respiratory respiratory effort/rhythm Overall: no retractions 12/16/2015 None Full Exam - General 1994 Respiratory respiratory effort/rhythm Overall: normal rate 12/16/2015 None Full Exam - General 1994 Cardiovascular extremities Overall: no clubbing 12/16/2015 None Full Exam - General 1994 Cardiovascular auscultation of heart Overall: regular rate 12/16/2015 None Full Exam - General 1994 Cardiovascular auscultation of heart Overall: normal heart sounds 12/16/2015 None Full Exam - General 1994 Cardiovascular auscultation of heart Overall: no murmurs 12/16/2015 None Full Exam - General 1994 Abdomen abdominal exam Overall: no tenderness 12/16/2015 None Full Exam - General 1994 Abdomen abdominal exam Overall: normal bowel sounds 12/16/2015 None Full Exam - General 1994 Lymphatic neck nodes Overall: anterior cervical chain benign 12/16/2015 None Full Exam - General 1994 Lymphatic neck nodes Overall: posterior cervical chain benign 12/16/2015 None Full Exam - General 1994 Musculoskeletal spine, ribs and pelvis Overall: ribs benign 12/16/2015 None Full Exam - General 1994 Musculoskeletal spine, ribs and pelvis Posture: kyphosis 12/16/2015 None Full Exam - General 1994 Musculoskeletal spine, ribs and pelvis Posture: lordosis 12/16/2015 None Full Exam - General 1994 Musculoskeletal head and neck Overall: head atraumatic 12/16/2015 None Full Exam - General 1994 Musculoskeletal head and neck Overall: cervical spine benign 12/16/2015 None Full Exam - General 1994 Integument inspection of skin Dermatitis: excoriation 12/16/2015 on scalp Full Exam - General 1994 Neurologic deep tendon reflexes Overall: deep tendon reflexes intact 12/16/2015 None Full Exam - General 1994 Neurologic gait Conventional walking: wide-based 12/16/2015 None Full Exam - General 1994 Psychiatric orientation/consciousness Oriented to person: yes 12/16/2015 None Full Exam - General 1994 Psychiatric orientation/consciousness Oriented to place: no 12/16/2015 None Full Exam - General 1994 Psychiatric orientation/consciousness Oriented to time: no 12/16/2015 None Full Exam - General 1994 Psychiatric orientation/consciousness Level of consciousness: alert 12/16/2015 None Full Exam - General 1994 Psychiatric mood and affect Overall: normal mood and affect 12/16/2015 None Full Exam - General 1994 Constitutional general appearance Overall: well developed 09/16/2015 None Full Exam - General 1994 Constitutional general appearance Overall: in no acute distress 09/16/2015 None Full Exam - General 1994 Constitutional general appearance Overall: well nourished 09/16/2015 None Full Exam - General 1994 Ears/Nose/Throat otoscopic exam Overall: external auditory canals clear 09/16/2015 None Full Exam - General 1994 Ears/Nose/Throat otoscopic exam Overall: tympanic membranes clear 09/16/2015 None Full Exam - General 1994 Ears/Nose/Throat lips/teeth/gingiva Lips: dry 09/16/2015 None Full Exam - General 1994 Ears/Nose/Throat oral cavity/pharynx/larynx Overall: oral mucosa clear 09/16/2015 None Full Exam - General 1994 Ears/Nose/Throat oral cavity/pharynx/larynx Overall: oropharyngeal mucosa clear 09/16/2015 None Full Exam - General 1994 Ears/Nose/Throat oral cavity/pharynx/larynx Overall: no masses 09/16/2015 None Full Exam - General 1994 Respiratory auscultation Overall: breath sounds clear bilaterally 09/16/2015 None Full Exam - General 1994 Respiratory respiratory effort/rhythm Overall: no retractions 09/16/2015 None Full Exam - General 1994 Respiratory respiratory effort/rhythm Overall: normal rate 09/16/2015 None Full Exam - General 1994 Cardiovascular extremities Overall: no clubbing 09/16/2015 None Full Exam - General 1994 Cardiovascular auscultation of heart Overall: regular rate 09/16/2015 None Full Exam - General 1994 Cardiovascular auscultation of heart Overall: normal heart sounds 09/16/2015 None Full Exam - General 1994 Cardiovascular auscultation of heart Overall: no murmurs 09/16/2015 None Full Exam - General 1994 Abdomen abdominal exam Overall: no tenderness 09/16/2015 None Full Exam - General 1994 Abdomen abdominal exam Overall: normal bowel sounds 09/16/2015 None Full Exam - General 1994 Lymphatic neck nodes Overall: anterior cervical chain benign 09/16/2015 None Full Exam - General 1994 Lymphatic neck nodes Overall: posterior cervical chain benign 09/16/2015 None Full Exam - General 1994 Musculoskeletal spine, ribs and pelvis Overall: ribs benign 09/16/2015 None Full Exam - General 1994 Musculoskeletal spine, ribs and pelvis Posture: kyphosis 09/16/2015 None Full Exam - General 1994 Musculoskeletal spine, ribs and pelvis Posture: lordosis 09/16/2015 None Full Exam - General 1994 Musculoskeletal head and neck Overall: head atraumatic 09/16/2015 None Full Exam - General 1994 Musculoskeletal head and neck Overall: cervical spine benign 09/16/2015 None Full Exam - General 1994 Integument inspection of skin Dermatitis: excoriation 09/16/2015 on scalp Full Exam - General 1994 Neurologic deep tendon reflexes Overall: deep tendon reflexes intact 09/16/2015 None Full Exam - General 1994 Neurologic gait Conventional walking: wide-based 09/16/2015 None Full Exam - General 1994 Psychiatric orientation/consciousness Oriented to person: yes 09/16/2015 None Full Exam - General 1994 Psychiatric orientation/consciousness Oriented to place: no 09/16/2015 None Full Exam - General 1994 Psychiatric orientation/consciousness Oriented to time: no 09/16/2015 None Full Exam - General 1994 Psychiatric orientation/consciousness Level of consciousness: alert 09/16/2015 None Full Exam - General 1994 Psychiatric mood and affect Overall: normal mood and affect 09/16/2015 None Full Exam - General 1994 Constitutional general appearance Overall: well developed 07/01/2015 None Full Exam - General 1994 Constitutional general appearance Overall: in no acute distress 07/01/2015 None Full Exam - General 1994 Constitutional general appearance Overall: well nourished 07/01/2015 None Full Exam - General 1994 Ears/Nose/Throat otoscopic exam Overall: external auditory canals clear 07/01/2015 None Full Exam - General 1994 Ears/Nose/Throat otoscopic exam Overall: tympanic membranes clear 07/01/2015 None Full Exam - General 1994 Ears/Nose/Throat lips/teeth/gingiva Lips: dry 07/01/2015 None Full Exam - General 1994 Ears/Nose/Throat oral cavity/pharynx/larynx Overall: oral mucosa clear 07/01/2015 None Full Exam - General 1994 Ears/Nose/Throat oral cavity/pharynx/larynx Overall: oropharyngeal mucosa clear 07/01/2015 None Full Exam - General 1994 Ears/Nose/Throat oral cavity/pharynx/larynx Overall: no masses 07/01/2015 None Full Exam - General 1994 Respiratory auscultation Overall: breath sounds clear bilaterally 07/01/2015 None Full Exam - General 1994 Respiratory respiratory effort/rhythm Overall: no retractions 07/01/2015 None Full Exam - General 1994 Respiratory respiratory effort/rhythm Overall: normal rate 07/01/2015 None Full Exam - General 1994 Cardiovascular extremities Overall: no clubbing 07/01/2015 None Full Exam - General 1994 Cardiovascular auscultation of heart Overall: regular rate 07/01/2015 None Full Exam - General 1994 Cardiovascular auscultation of heart Overall: normal heart sounds 07/01/2015 None Full Exam - General 1994 Cardiovascular auscultation of heart Overall: no murmurs 07/01/2015 None Full Exam - General 1994 Abdomen abdominal exam Overall: no tenderness 07/01/2015 None Full Exam - General 1994 Abdomen abdominal exam Overall: normal bowel sounds 07/01/2015 None Full Exam - General 1994 Lymphatic neck nodes Overall: anterior cervical chain benign 07/01/2015 None Full Exam - General 1994 Lymphatic neck nodes Overall: posterior cervical chain benign 07/01/2015 None Full Exam - General 1994 Musculoskeletal spine, ribs and pelvis Overall: ribs benign 07/01/2015 None Full Exam - General 1994 Musculoskeletal spine, ribs and pelvis Posture: kyphosis 07/01/2015 None Full Exam - General 1994 Musculoskeletal spine, ribs and pelvis Posture: lordosis 07/01/2015 None Full Exam - General 1994 Musculoskeletal head and neck Overall: head atraumatic 07/01/2015 None Full Exam - General 1994 Musculoskeletal head and neck Overall: cervical spine benign 07/01/2015 None Full Exam - General 1994 Neurologic deep tendon reflexes Overall: deep tendon reflexes intact 07/01/2015 None Full Exam - General 1994 Neurologic gait Conventional walking: wide-based 07/01/2015 None Full Exam - General 1994 Psychiatric orientation/consciousness Oriented to person: yes 07/01/2015 None Full Exam - General 1994 Psychiatric orientation/consciousness Oriented to place: no 07/01/2015 None Full Exam - General 1994 Psychiatric orientation/consciousness Oriented to time: no 07/01/2015 None Full Exam - General 1994 Psychiatric orientation/consciousness Level of consciousness: alert 07/01/2015 None Full Exam - General 1994 Psychiatric mood and affect Overall: normal mood and affect 07/01/2015 None Full Exam - General 1994 Integument inspection of skin Dermatitis: excoriation 07/01/2015 on scalp Full Exam - General 1994 Constitutional general appearance Overall: well developed 02/25/2015 None Full Exam - General 1994 Constitutional general appearance Overall: in no acute distress 02/25/2015 None Full Exam - General 1994 Constitutional general appearance Overall: well nourished 02/25/2015 None Full Exam - General 1994 Ears/Nose/Throat otoscopic exam Overall: external auditory canals clear 02/25/2015 None Full Exam - General 1994 Ears/Nose/Throat otoscopic exam Overall: tympanic membranes clear 02/25/2015 None Full Exam - General 1994 Ears/Nose/Throat lips/teeth/gingiva Lips: dry 02/25/2015 None Full Exam - General 1994 Ears/Nose/Throat oral cavity/pharynx/larynx Overall: oral mucosa clear 02/25/2015 None Full Exam - General 1994 Ears/Nose/Throat oral cavity/pharynx/larynx Overall: oropharyngeal mucosa clear 02/25/2015 None Full Exam - General 1994 Ears/Nose/Throat oral cavity/pharynx/larynx Overall: no masses 02/25/2015 None Full Exam - General 1994 Respiratory auscultation Overall: breath sounds clear bilaterally 02/25/2015 None Full Exam - General 1994 Respiratory respiratory effort/rhythm Overall: no retractions 02/25/2015 None Full Exam - General 1994 Respiratory respiratory effort/rhythm Overall: normal rate 02/25/2015 None Full Exam - General 1994 Cardiovascular extremities Overall: no clubbing 02/25/2015 None Full Exam - General 1994 Cardiovascular auscultation of heart Overall: regular rate 02/25/2015 None Full Exam - General 1994 Cardiovascular auscultation of heart Overall: normal heart sounds 02/25/2015 None Full Exam - General 1994 Cardiovascular auscultation of heart Overall: no murmurs 02/25/2015 None Full Exam - General 1994 Abdomen abdominal exam Overall: no tenderness 02/25/2015 None Full Exam - General 1994 Abdomen abdominal exam Overall: normal bowel sounds 02/25/2015 None Full Exam - General 1994 Lymphatic neck nodes Overall: anterior cervical chain benign 02/25/2015 None Full Exam - General 1994 Lymphatic neck nodes Overall: posterior cervical chain benign 02/25/2015 None Full Exam - General 1994 Musculoskeletal spine, ribs and pelvis Overall: ribs benign 02/25/2015 None Full Exam - General 1994 Musculoskeletal spine, ribs and pelvis Posture: kyphosis 02/25/2015 None Full Exam - General 1994 Musculoskeletal spine, ribs and pelvis Posture: lordosis 02/25/2015 None Full Exam - General 1994 Musculoskeletal head and neck Overall: head atraumatic 02/25/2015 None Full Exam - General 1994 Musculoskeletal head and neck Overall: cervical spine benign 02/25/2015 None Full Exam - General 1994 Neurologic deep tendon reflexes Overall: deep tendon reflexes intact 02/25/2015 None Full Exam - General 1994 Neurologic gait Conventional walking: wide-based 02/25/2015 None Full Exam - General 1994 Psychiatric orientation/consciousness Oriented to person: yes 02/25/2015 None Full Exam - General 1994 Psychiatric orientation/consciousness Oriented to place: no 02/25/2015 None Full Exam - General 1994 Psychiatric orientation/consciousness Oriented to time: no 02/25/2015 None Full Exam - General 1994 Psychiatric orientation/consciousness Level of consciousness: alert 02/25/2015 None Full Exam - General 1994 Psychiatric mood and affect Overall: normal mood and affect 02/25/2015 None Full Exam - General 1994 Constitutional general appearance Overall: well developed 11/19/2014 None Full Exam - General 1994 Constitutional general appearance Overall: in no acute distress 11/19/2014 None Full Exam - General 1994 Constitutional general appearance Overall: well nourished 11/19/2014 None Full Exam - General 1994 Ears/Nose/Throat otoscopic exam Overall: external auditory canals clear 11/19/2014 None Full Exam - General 1994 Ears/Nose/Throat otoscopic exam Overall: tympanic membranes clear 11/19/2014 None Full Exam - General 1994 Ears/Nose/Throat lips/teeth/gingiva Lips: dry 11/19/2014 None Full Exam - General 1994 Ears/Nose/Throat oral cavity/pharynx/larynx Overall: oral mucosa clear 11/19/2014 None Full Exam - General 1994 Ears/Nose/Throat oral cavity/pharynx/larynx Overall: oropharyngeal mucosa clear 11/19/2014 None Full Exam - General 1994 Ears/Nose/Throat oral cavity/pharynx/larynx Overall: no masses 11/19/2014 None Full Exam - General 1994 Respiratory auscultation Overall: breath sounds clear bilaterally 11/19/2014 None Full Exam - General 1994 Respiratory respiratory effort/rhythm Overall: no retractions 11/19/2014 None Full Exam - General 1994 Respiratory respiratory effort/rhythm Overall: normal rate 11/19/2014 None Full Exam - General 1994 Cardiovascular extremities Overall: no clubbing 11/19/2014 None Full Exam - General 1994 Cardiovascular auscultation of heart Overall: regular rate 11/19/2014 None Full Exam - General 1994 Cardiovascular auscultation of heart Overall: normal heart sounds 11/19/2014 None Full Exam - General 1994 Cardiovascular auscultation of heart Overall: no murmurs 11/19/2014 None Full Exam - General 1994 Abdomen abdominal exam Overall: no tenderness 11/19/2014 None Full Exam - General 1994 Abdomen abdominal exam Overall: normal bowel sounds 11/19/2014 None Full Exam - General 1994 Lymphatic neck nodes Overall: anterior cervical chain benign 11/19/2014 None Full Exam - General 1994 Lymphatic neck nodes Overall: posterior cervical chain benign 11/19/2014 None Full Exam - General 1994 Musculoskeletal spine, ribs and pelvis Overall: ribs benign 11/19/2014 None Full Exam - General 1994 Musculoskeletal spine, ribs and pelvis Posture: kyphosis 11/19/2014 None Full Exam - General 1994 Musculoskeletal spine, ribs and pelvis Posture: lordosis 11/19/2014 None Full Exam - General 1994 Musculoskeletal head and neck Overall: head atraumatic 11/19/2014 None Full Exam - General 1994 Musculoskeletal head and neck Overall: cervical spine benign 11/19/2014 None Full Exam - General 1994 Neurologic deep tendon reflexes Overall: deep tendon reflexes intact 11/19/2014 None Full Exam - General 1994 Neurologic gait Conventional walking: wide-based 11/19/2014 None Full Exam - General 1994 Psychiatric orientation/consciousness Oriented to person: yes 11/19/2014 None Full Exam - General 1994 Psychiatric orientation/consciousness Oriented to place: no 11/19/2014 None Full Exam - General 1994 Psychiatric orientation/consciousness Oriented to time: no 11/19/2014 None Full Exam - General 1994 Psychiatric orientation/consciousness Level of consciousness: alert 11/19/2014 None Full Exam - General 1994 Psychiatric mood and affect Overall: normal mood and affect 11/19/2014 None Full Exam - General 1994 Constitutional general appearance Overall: well developed 08/13/2014 None Full Exam - General 1994 Constitutional general appearance Overall: in no acute distress 08/13/2014 None Full Exam - General 1994 Constitutional general appearance Overall: well nourished 08/13/2014 None Full Exam - General 1994 Ears/Nose/Throat otoscopic exam Overall: external auditory canals clear 08/13/2014 None Full Exam - General 1994 Ears/Nose/Throat otoscopic exam Overall: tympanic membranes clear 08/13/2014 None Full Exam - General 1994 Ears/Nose/Throat lips/teeth/gingiva Lips: dry 08/13/2014 None Full Exam - General 1994 Ears/Nose/Throat oral cavity/pharynx/larynx Overall: oral mucosa clear 08/13/2014 None Full Exam - General 1994 Ears/Nose/Throat oral cavity/pharynx/larynx Overall: oropharyngeal mucosa clear 08/13/2014 None Full Exam - General 1994 Ears/Nose/Throat oral cavity/pharynx/larynx Overall: no masses 08/13/2014 None Full Exam - General 1994 Respiratory auscultation Overall: breath sounds clear bilaterally 08/13/2014 None Full Exam - General 1994 Respiratory respiratory effort/rhythm Overall: no retractions 08/13/2014 None Full Exam - General 1994 Respiratory respiratory effort/rhythm Overall: normal rate 08/13/2014 None Full Exam - General 1994 Cardiovascular extremities Overall: no clubbing 08/13/2014 None Full Exam - General 1994 Cardiovascular auscultation of heart Overall: regular rate 08/13/2014 None Full Exam - General 1994 Cardiovascular auscultation of heart Overall: normal heart sounds 08/13/2014 None Full Exam - General 1994 Cardiovascular auscultation of heart Overall: no murmurs 08/13/2014 None Full Exam - General 1994 Abdomen abdominal exam Overall: no tenderness 08/13/2014 None Full Exam - General 1994 Abdomen abdominal exam Overall: normal bowel sounds 08/13/2014 None Full Exam - General 1994 Lymphatic neck nodes Overall: anterior cervical chain benign 08/13/2014 None Full Exam - General 1994 Lymphatic neck nodes Overall: posterior cervical chain benign 08/13/2014 None Full Exam - General 1994 Musculoskeletal spine, ribs and pelvis Overall: ribs benign 08/13/2014 None Full Exam - General 1994 Musculoskeletal spine, ribs and pelvis Posture: kyphosis 08/13/2014 None Full Exam - General 1994 Musculoskeletal spine, ribs and pelvis Posture: lordosis 08/13/2014 None Full Exam - General 1994 Musculoskeletal head and neck Overall: head atraumatic 08/13/2014 None Full Exam - General 1994 Musculoskeletal head and neck Overall: cervical spine benign 08/13/2014 None Full Exam - General 1994 Neurologic deep tendon reflexes Overall: deep tendon reflexes intact 08/13/2014 None Full Exam - General 1994 Neurologic gait Conventional walking: wide-based 08/13/2014 None Full Exam - General 1994 Psychiatric orientation/consciousness Oriented to person: yes 08/13/2014 None Full Exam - General 1994 Psychiatric orientation/consciousness Oriented to place: no 08/13/2014 None Full Exam - General 1994 Psychiatric orientation/consciousness Oriented to time: no 08/13/2014 None Full Exam - General 1994 Psychiatric orientation/consciousness Level of consciousness: alert 08/13/2014 None Full Exam - General 1994 Psychiatric mood and affect Overall: normal mood and affect 08/13/2014 None Full Exam - General 1994 Constitutional general appearance Overall: well developed 06/11/2014 None Full Exam - General 1994 Constitutional general appearance Overall: in no acute distress 06/11/2014 None Full Exam - General 1994 Constitutional general appearance Overall: well nourished 06/11/2014 None Full Exam - General 1994 Ears/Nose/Throat otoscopic exam Overall: external auditory canals clear 06/11/2014 None Full Exam - General 1994 Ears/Nose/Throat otoscopic exam Overall: tympanic membranes clear 06/11/2014 None Full Exam - General 1994 Ears/Nose/Throat oral cavity/pharynx/larynx Overall: oral mucosa clear 06/11/2014 None Full Exam - General 1994 Ears/Nose/Throat oral cavity/pharynx/larynx Overall: oropharyngeal mucosa clear 06/11/2014 None Full Exam - General 1994 Ears/Nose/Throat oral cavity/pharynx/larynx Overall: no masses 06/11/2014 None Full Exam - General 1994 Respiratory auscultation Overall: breath sounds clear bilaterally 06/11/2014 None Full Exam - General 1994 Respiratory respiratory effort/rhythm Overall: no retractions 06/11/2014 None Full Exam - General 1994 Respiratory respiratory effort/rhythm Overall: normal rate 06/11/2014 None Full Exam - General 1994 Cardiovascular extremities Overall: no clubbing 06/11/2014 None Full Exam - General 1994 Cardiovascular auscultation of heart Overall: regular rate 06/11/2014 None Full Exam - General 1994 Cardiovascular auscultation of heart Overall: normal heart sounds 06/11/2014 None Full Exam - General 1994 Cardiovascular auscultation of heart Overall: no murmurs 06/11/2014 None Full Exam - General 1994 Abdomen abdominal exam Overall: no tenderness 06/11/2014 None Full Exam - General 1994 Abdomen abdominal exam Overall: normal bowel sounds 06/11/2014 None Full Exam - General 1994 Lymphatic neck nodes Overall: anterior cervical chain benign 06/11/2014 None Full Exam - General 1994 Lymphatic neck nodes Overall: posterior cervical chain benign 06/11/2014 None Full Exam - General 1994 Musculoskeletal spine, ribs and pelvis Overall: ribs benign 06/11/2014 None Full Exam - General 1994 Musculoskeletal spine, ribs and pelvis Posture: kyphosis 06/11/2014 None Full Exam - General 1994 Musculoskeletal spine, ribs and pelvis Posture: lordosis 06/11/2014 None Full Exam - General 1994 Musculoskeletal head and neck Overall: head atraumatic 06/11/2014 None Full Exam - General 1994 Musculoskeletal head and neck Overall: cervical spine benign 06/11/2014 None Full Exam - General 1994 Neurologic deep tendon reflexes Overall: deep tendon reflexes intact 06/11/2014 None Full Exam - General 1994 Neurologic gait Conventional walking: wide-based 06/11/2014 None Full Exam - General 1994 Psychiatric orientation/consciousness Oriented to person: yes 06/11/2014 None Full Exam - General 1994 Psychiatric orientation/consciousness Oriented to place: no 06/11/2014 None Full Exam - General 1994 Psychiatric orientation/consciousness Oriented to time: no 06/11/2014 None Full Exam - General 1994 Psychiatric orientation/consciousness Level of consciousness: alert 06/11/2014 None Full Exam - General 1994 Psychiatric mood and affect Overall: normal mood and affect 06/11/2014 None Full Exam - General 1994 Ears/Nose/Throat lips/teeth/gingiva Lips: dry 06/11/2014 None Full Exam - General 1994 Constitutional general appearance Overall: well developed 04/16/2014 None Full Exam - General 1994 Constitutional general appearance Overall: in no acute distress 04/16/2014 None Full Exam - General 1994 Constitutional general appearance Overall: well nourished 04/16/2014 None Full Exam - General 1994 Ears/Nose/Throat lips/teeth/gingiva Gingiva: lesion 04/16/2014 ulceration noted on lower right gingiva Full Exam - General 1994 Ears/Nose/Throat oral cavity/pharynx/larynx Overall: oropharyngeal mucosa clear 04/16/2014 None Full Exam - General 1994 Ears/Nose/Throat oral cavity/pharynx/larynx Overall: no masses 04/16/2014 None Full Exam - General 1994 Respiratory auscultation Overall: breath sounds clear bilaterally 04/16/2014 None Full Exam - General 1994 Respiratory respiratory effort/rhythm Overall: no retractions 04/16/2014 None Full Exam - General 1994 Respiratory respiratory effort/rhythm Overall: normal rate 04/16/2014 None Full Exam - General 1994 Cardiovascular extremities Overall: no clubbing 04/16/2014 None Full Exam - General 1994 Cardiovascular auscultation of heart Overall: regular rate 04/16/2014 None Full Exam - General 1994 Cardiovascular auscultation of heart Overall: normal heart sounds 04/16/2014 None Full Exam - General 1994 Cardiovascular auscultation of heart Overall: no murmurs 04/16/2014 None Full Exam - General 1994 Abdomen abdominal exam Overall: no tenderness 04/16/2014 None Full Exam - General 1994 Abdomen abdominal exam Overall: normal bowel sounds 04/16/2014 None Full Exam - General 1994 Musculoskeletal spine, ribs and pelvis Overall: ribs benign 04/16/2014 None Full Exam - General 1994 Musculoskeletal spine, ribs and pelvis Posture: kyphosis 04/16/2014 None Full Exam - General 1994 Musculoskeletal spine, ribs and pelvis Posture: lordosis 04/16/2014 None Full Exam - General 1994 Musculoskeletal head and neck Overall: head atraumatic 04/16/2014 None Full Exam - General 1994 Musculoskeletal head and neck Overall: cervical spine benign 04/16/2014 None Full Exam - General 1994 Neurologic deep tendon reflexes Overall: deep tendon reflexes intact 04/16/2014 None Full Exam - General 1994 Neurologic gait Conventional walking: wide-based 04/16/2014 None Full Exam - General 1994 Psychiatric orientation/consciousness Oriented to person: yes 04/16/2014 None Full Exam - General 1994 Psychiatric orientation/consciousness Oriented to place: no 04/16/2014 None Full Exam - General 1994 Psychiatric orientation/consciousness Oriented to time: no 04/16/2014 None Full Exam - General 1994 Psychiatric orientation/consciousness Level of consciousness: alert 04/16/2014 None Full Exam - General 1994 Psychiatric mood and affect Overall: normal mood and affect 04/16/2014 None Full Exam - General 1994 Constitutional general appearance Overall: well developed 03/12/2014 None Full Exam - General 1994 Constitutional general appearance Overall: in no acute distress 03/12/2014 None Full Exam - General 1994 Constitutional general appearance Overall: well nourished 03/12/2014 None Full Exam - General 1994 Ears/Nose/Throat oral cavity/pharynx/larynx Overall: oropharyngeal mucosa clear 03/12/2014 None Full Exam - General 1994 Ears/Nose/Throat oral cavity/pharynx/larynx Overall: no masses 03/12/2014 None Full Exam - General 1994 Respiratory auscultation Overall: breath sounds clear bilaterally 03/12/2014 None Full Exam - General 1994 Respiratory respiratory effort/rhythm Overall: no retractions 03/12/2014 None Full Exam - General 1994 Respiratory respiratory effort/rhythm Overall: normal rate 03/12/2014 None Full Exam - General 1994 Cardiovascular extremities Overall: no clubbing 03/12/2014 None Full Exam - General 1994 Cardiovascular auscultation of heart Overall: regular rate 03/12/2014 None Full Exam - General 1994 Cardiovascular auscultation of heart Overall: normal heart sounds 03/12/2014 None Full Exam - General 1994 Cardiovascular auscultation of heart Overall: no murmurs 03/12/2014 None Full Exam - General 1994 Abdomen abdominal exam Overall: no tenderness 03/12/2014 None Full Exam - General 1994 Abdomen abdominal exam Overall: normal bowel sounds 03/12/2014 None Full Exam - General 1994 Musculoskeletal spine, ribs and pelvis Overall: ribs benign 03/12/2014 None Full Exam - General 1994 Musculoskeletal spine, ribs and pelvis Posture: kyphosis 03/12/2014 None Full Exam - General 1994 Musculoskeletal spine, ribs and pelvis Posture: lordosis 03/12/2014 None Full Exam - General 1994 Musculoskeletal head and neck Overall: head atraumatic 03/12/2014 None Full Exam - General 1994 Musculoskeletal head and neck Overall: cervical spine benign 03/12/2014 None Full Exam - General 1994 Neurologic deep tendon reflexes Overall: deep tendon reflexes intact 03/12/2014 None Full Exam - General 1994 Neurologic gait Conventional walking: wide-based 03/12/2014 None Full Exam - General 1994 Psychiatric orientation/consciousness Oriented to person: yes 03/12/2014 None Full Exam - General 1994 Psychiatric orientation/consciousness Oriented to place: no 03/12/2014 None Full Exam - General 1994 Psychiatric orientation/consciousness Oriented to time: no 03/12/2014 None Full Exam - General 1994 Psychiatric orientation/consciousness Level of consciousness: alert 03/12/2014 None Full Exam - General 1994 Psychiatric mood and affect Overall: normal mood and affect 03/12/2014 None Full Exam - General 1994 Ears/Nose/Throat lips/teeth/gingiva Gingiva: lesion 03/12/2014 ulceration noted on lower right gingiva Full Exam - General 1994 Integument inspection of skin Dermatitis: dryness/ flaking 03/12/2014 healing - scabbed lesions over left chest/back Full Exam - General 1994 Integument inspection of skin Dermatitis: erythema 03/12/2014 under breasts bilaterally - with material gathered in the breast fold. Full Exam - General 1994 Constitutional general appearance Overall: well developed 02/26/2014 None Full Exam - General 1994 Constitutional general appearance Overall: in no acute distress 02/26/2014 None Full Exam - General 1994 Constitutional general appearance Overall: well nourished 02/26/2014 None Full Exam - General 1994 Ears/Nose/Throat oral cavity/pharynx/larynx Overall: oral mucosa clear 02/26/2014 None Full Exam - General 1994 Ears/Nose/Throat oral cavity/pharynx/larynx Overall: oropharyngeal mucosa clear 02/26/2014 None Full Exam - General 1994 Ears/Nose/Throat oral cavity/pharynx/larynx Overall: no masses 02/26/2014 None Full Exam - General 1994 Respiratory auscultation Overall: breath sounds clear bilaterally 02/26/2014 None Full Exam - General 1994 Respiratory respiratory effort/rhythm Overall: no retractions 02/26/2014 None Full Exam - General 1994 Respiratory respiratory effort/rhythm Overall: normal rate 02/26/2014 None Full Exam - General 1994 Cardiovascular extremities Overall: no clubbing 02/26/2014 None Full Exam - General 1994 Cardiovascular auscultation of heart Overall: regular rate 02/26/2014 None Full Exam - General 1994 Cardiovascular auscultation of heart Overall: normal heart sounds 02/26/2014 None Full Exam - General 1994 Cardiovascular auscultation of heart Overall: no murmurs 02/26/2014 None Full Exam - General 1994 Abdomen abdominal exam Overall: no tenderness 02/26/2014 None Full Exam - General 1994 Abdomen abdominal exam Overall: normal bowel sounds 02/26/2014 None Full Exam - General 1994 Lymphatic neck nodes Overall: anterior cervical chain benign 02/26/2014 None Full Exam - General 1994 Lymphatic neck nodes Overall: posterior cervical chain benign 02/26/2014 None Full Exam - General 1994 Musculoskeletal spine, ribs and pelvis Overall: ribs benign 02/26/2014 None Full Exam - General 1994 Musculoskeletal spine, ribs and pelvis Posture: kyphosis 02/26/2014 None Full Exam - General 1994 Musculoskeletal spine, ribs and pelvis Posture: lordosis 02/26/2014 None Full Exam - General 1994 Musculoskeletal head and neck Overall: head atraumatic 02/26/2014 None Full Exam - General 1994 Musculoskeletal head and neck Overall: cervical spine benign 02/26/2014 None Full Exam - General 1994 Neurologic deep tendon reflexes Overall: deep tendon reflexes intact 02/26/2014 None Full Exam - General 1994 Neurologic gait Conventional walking: wide-based 02/26/2014 None Full Exam - General 1994 Psychiatric orientation/consciousness Oriented to person: yes 02/26/2014 None Full Exam - General 1994 Psychiatric orientation/consciousness Oriented to place: no 02/26/2014 None Full Exam - General 1994 Psychiatric orientation/consciousness Oriented to time: no 02/26/2014 None Full Exam - General 1994 Psychiatric orientation/consciousness Level of consciousness: alert 02/26/2014 None Full Exam - General 1994 Psychiatric mood and affect Overall: normal mood and affect 02/26/2014 None Full Exam - General 1994 Ears/Nose/Throat otoscopic exam External auditory canal: complete cerumen impaction 02/26/2014 None Full Exam - General 1994 Integument inspection of skin Location: chest 02/26/2014 on left - vesicular lesions with erythematous base - Full Exam - General 1994 Constitutional general appearance Overall: well developed 11/27/2013 None Full Exam - General 1994 Constitutional general appearance Overall: in no acute distress 11/27/2013 None Full Exam - General 1994 Constitutional general appearance Overall: well nourished 11/27/2013 None Full Exam - General 1994 Ears/Nose/Throat otoscopic exam Overall: external auditory canals clear 11/27/2013 None Full Exam - General 1994 Ears/Nose/Throat otoscopic exam Overall: tympanic membranes clear 11/27/2013 None Full Exam - General 1994 Ears/Nose/Throat oral cavity/pharynx/larynx Overall: oral mucosa clear 11/27/2013 None Full Exam - General 1994 Ears/Nose/Throat oral cavity/pharynx/larynx Overall: oropharyngeal mucosa clear 11/27/2013 None Full Exam - General 1994 Ears/Nose/Throat oral cavity/pharynx/larynx Overall: no masses 11/27/2013 None Full Exam - General 1994 Respiratory auscultation Overall: breath sounds clear bilaterally 11/27/2013 None Full Exam - General 1994 Respiratory respiratory effort/rhythm Overall: no retractions 11/27/2013 None Full Exam - General 1994 Respiratory respiratory effort/rhythm Overall: normal rate 11/27/2013 None Full Exam - General 1994 Cardiovascular extremities Overall: no clubbing 11/27/2013 None Full Exam - General 1994 Cardiovascular auscultation of heart Overall: regular rate 11/27/2013 None Full Exam - General 1994 Cardiovascular auscultation of heart Overall: normal heart sounds 11/27/2013 None Full Exam - General 1994 Cardiovascular auscultation of heart Overall: no murmurs 11/27/2013 None Full Exam - General 1994 Abdomen abdominal exam Overall: no tenderness 11/27/2013 None Full Exam - General 1994 Abdomen abdominal exam Overall: normal bowel sounds 11/27/2013 None Full Exam - General 1994 Lymphatic neck nodes Overall: anterior cervical chain benign 11/27/2013 None Full Exam - General 1994 Lymphatic neck nodes Overall: posterior cervical chain benign 11/27/2013 None Full Exam - General 1994 Musculoskeletal spine, ribs and pelvis Overall: ribs benign 11/27/2013 None Full Exam - General 1994 Musculoskeletal spine, ribs and pelvis Posture: kyphosis 11/27/2013 None Full Exam - General 1994 Musculoskeletal spine, ribs and pelvis Posture: lordosis 11/27/2013 None Full Exam - General 1994 Musculoskeletal head and neck Overall: head atraumatic 11/27/2013 None Full Exam - General 1994 Musculoskeletal head and neck Overall: cervical spine benign 11/27/2013 None Full Exam - General 1994 Neurologic deep tendon reflexes Overall: deep tendon reflexes intact 11/27/2013 None Full Exam - General 1994 Neurologic gait Conventional walking: wide-based 11/27/2013 None Full Exam - General 1994 Psychiatric orientation/consciousness Oriented to person: yes 11/27/2013 None Full Exam - General 1994 Psychiatric orientation/consciousness Oriented to place: no 11/27/2013 None Full Exam - General 1994 Psychiatric orientation/consciousness Oriented to time: no 11/27/2013 None Full Exam - General 1994 Psychiatric orientation/consciousness Level of consciousness: alert 11/27/2013 None Full Exam - General 1994 Psychiatric mood and affect Overall: normal mood and affect 11/27/2013 None Full Exam - General 1994 Constitutional general appearance Overall: well developed 10/16/2013 None Full Exam - General 1994 Constitutional general appearance Overall: in no acute distress 10/16/2013 None Full Exam - General 1994 Constitutional general appearance Overall: well nourished 10/16/2013 None Full Exam - General 1994 Ears/Nose/Throat otoscopic exam Overall: external auditory canals clear 10/16/2013 None Full Exam - General 1994 Ears/Nose/Throat otoscopic exam Overall: tympanic membranes clear 10/16/2013 None Full Exam - General 1994 Ears/Nose/Throat oral cavity/pharynx/larynx Overall: oral mucosa clear 10/16/2013 None Full Exam - General 1994 Ears/Nose/Throat oral cavity/pharynx/larynx Overall: oropharyngeal mucosa clear 10/16/2013 None Full Exam - General 1994 Ears/Nose/Throat oral cavity/pharynx/larynx Overall: no masses 10/16/2013 None Full Exam - General 1994 Respiratory auscultation Overall: breath sounds clear bilaterally 10/16/2013 None Full Exam - General 1994 Respiratory respiratory effort/rhythm Overall: no retractions 10/16/2013 None Full Exam - General 1994 Respiratory respiratory effort/rhythm Overall: normal rate 10/16/2013 None Full Exam - General 1994 Cardiovascular extremities Overall: no clubbing 10/16/2013 None Full Exam - General 1995 Cardiovascular auscultation of heart Overall: regular rate 10/16/2013 None Full Exam - General 1995 Cardiovascular auscultation of heart Overall: normal heart sounds 10/16/2013 None Full Exam - General 1995 Cardiovascular auscultation of heart Overall: no murmurs 10/16/2013 None Full Exam - General 1995 Abdomen abdominal exam Overall: no tenderness 10/16/2013 None Full Exam - General 1995 Abdomen abdominal exam Overall: normal bowel sounds 10/16/2013 None Full Exam - General 1995 Lymphatic neck nodes Overall: anterior cervical chain benign 10/16/2013 None Full Exam - General 1995 Lymphatic neck nodes Overall: posterior cervical chain benign 10/16/2013 None Full Exam - General 1995 Musculoskeletal spine, ribs and pelvis Overall: ribs benign 10/16/2013 None Full Exam - General 1994 Musculoskeletal spine, ribs and pelvis Posture: kyphosis 10/16/2013 None Full Exam - General 1994 Musculoskeletal spine, ribs and pelvis Posture: lordosis 10/16/2013 None Full Exam - General 1994 Musculoskeletal head and neck Overall: head atraumatic 10/16/2013 None Full Exam - General 1994 Musculoskeletal head and neck Overall: cervical spine benign 10/16/2013 None Full Exam - General 1994 Neurologic deep tendon reflexes Overall: deep tendon reflexes intact 10/16/2013 None Full Exam - General 1994 Neurologic gait Conventional walking: wide-based 10/16/2013 None Full Exam - General 1994 Psychiatric orientation/consciousness Oriented to person: yes 10/16/2013 None Full Exam - General 1994 Psychiatric orientation/consciousness Oriented to place: no 10/16/2013 None Full Exam - General 1994 Psychiatric orientation/consciousness Oriented to time: no 10/16/2013 None Full Exam - General 1994 Psychiatric orientation/consciousness Level of consciousness: alert 10/16/2013 None Full Exam - General 1994 Psychiatric mood and affect Overall: normal mood and affect 10/16/2013 None Full Exam - General 1994 Respiratory respiratory effort/rhythm Overall: no retractions 07/10/2013 None Full Exam - General 1994 Respiratory respiratory effort/rhythm Overall: normal rate 07/10/2013 None Full Exam - General 1994 Cardiovascular extremities Overall: no clubbing 07/10/2013 None Full Exam - General 1994 Cardiovascular auscultation of heart Overall: regular rate 07/10/2013 None Full Exam - General 1994 Cardiovascular auscultation of heart Overall: normal heart sounds 07/10/2013 None Full Exam - General 1994 Cardiovascular auscultation of heart Overall: no murmurs 07/10/2013 None Full Exam - General 1994 Abdomen abdominal exam Overall: no tenderness 07/10/2013 None Full Exam - General 1995 Abdomen abdominal exam Overall: normal bowel sounds 07/10/2013 None Full Exam - General 1995 Lymphatic neck nodes Overall: anterior cervical chain benign 07/10/2013 None Full Exam - General 1994 Lymphatic neck nodes Overall: posterior cervical chain benign 07/10/2013 None Full Exam - General 1995 Musculoskeletal spine, ribs and pelvis Overall: ribs benign 07/10/2013 None Full Exam - General 1995 Musculoskeletal spine, ribs and pelvis Posture: kyphosis 07/10/2013 None Full Exam - General 1995 Musculoskeletal spine, ribs and pelvis Posture: lordosis 07/10/2013 None Full Exam - General 1994 Musculoskeletal head and neck Overall: head atraumatic 07/10/2013 None Full Exam - General 1994 Constitutional general appearance Overall: well developed 07/10/2013 None Full Exam - General 1994 Constitutional general appearance Overall: in no acute distress 07/10/2013 None Full Exam - General 1994 Constitutional general appearance Overall: well nourished 07/10/2013 None Full Exam - General 1994 Ears/Nose/Throat otoscopic exam Overall: external auditory canals clear 07/10/2013 None Full Exam - General 1994 Ears/Nose/Throat otoscopic exam Overall: tympanic membranes clear 07/10/2013 None Full Exam - General 1994 Ears/Nose/Throat oral cavity/pharynx/larynx Overall: oral mucosa clear 07/10/2013 None Full Exam - General 1994 Ears/Nose/Throat oral cavity/pharynx/larynx Overall: oropharyngeal mucosa clear 07/10/2013 None Full Exam - General 1995 Ears/Nose/Throat oral cavity/pharynx/larynx Overall: no masses 07/10/2013 None Full Exam - General 1994 Respiratory auscultation Overall: breath sounds clear bilaterally 07/10/2013 None Full Exam - General 1994 Musculoskeletal head and neck Overall: cervical spine benign 07/10/2013 None Full Exam - General 1994 Neurologic deep tendon reflexes Overall: deep tendon reflexes intact 07/10/2013 None Full Exam - General 1994 Neurologic gait Conventional walking: wide-based 07/10/2013 None Full Exam - General 1994 Psychiatric orientation/consciousness Oriented to person: yes 07/10/2013 None Full Exam - General 1995 Psychiatric orientation/consciousness Oriented to place: no 07/10/2013 None Full Exam - General 1995 Psychiatric orientation/consciousness Oriented to time: no 07/10/2013 None Full Exam - General 1995 Psychiatric orientation/consciousness Level of consciousness: alert 07/10/2013 None Full Exam - General 1994 Psychiatric mood and affect Overall: normal mood and affect 07/10/2013 None Full Exam - General 1995 Constitutional general appearance Overall: well developed 06/12/2013 None Full Exam - General 1995 Constitutional general appearance Overall: in no acute distress 06/12/2013 None Full Exam - General 1995 Constitutional general appearance Overall: well nourished 06/12/2013 None Full Exam - General 1995 Ears/Nose/Throat otoscopic exam Overall: external auditory canals clear 06/12/2013 None Full Exam - General 1995 Ears/Nose/Throat otoscopic exam Overall: tympanic membranes clear 06/12/2013 None Full Exam - General 1995 Ears/Nose/Throat oral cavity/pharynx/larynx Overall: oral mucosa clear 06/12/2013 None Full Exam - General 1995 Ears/Nose/Throat oral cavity/pharynx/larynx Overall: oropharyngeal mucosa clear 06/12/2013 None Full Exam - General 1995 Ears/Nose/Throat oral cavity/pharynx/larynx Overall: no masses 06/12/2013 None Full Exam - General 1994 Respiratory auscultation Overall: breath sounds clear bilaterally 06/12/2013 None Full Exam - General 1994 Respiratory respiratory effort/rhythm Overall: no retractions 06/12/2013 None Full Exam - General 1994 Respiratory respiratory effort/rhythm Overall: normal rate 06/12/2013 None Full Exam - General 1994 Cardiovascular extremities Overall: no clubbing 06/12/2013 None Full Exam - General 1994 Cardiovascular auscultation of heart Overall: regular rate 06/12/2013 None Full Exam - General 1994 Cardiovascular auscultation of heart Overall: normal heart sounds 06/12/2013 None Full Exam - General 1994 Cardiovascular auscultation of heart Overall: no murmurs 06/12/2013 None Full Exam - General 1994 Abdomen abdominal exam Overall: no tenderness 06/12/2013 None Full Exam - General 1994 Abdomen abdominal exam Overall: normal bowel sounds 06/12/2013 None Full Exam - General 1994 Lymphatic neck nodes Overall: anterior cervical chain benign 06/12/2013 None Full Exam - General 1994 Lymphatic neck nodes Overall: posterior cervical chain benign 06/12/2013 None Full Exam - General 1995 Musculoskeletal spine, ribs and pelvis Overall: ribs benign 06/12/2013 None Full Exam - General 1995 Musculoskeletal spine, ribs and pelvis Posture: kyphosis 06/12/2013 None Full Exam - General 1995 Musculoskeletal spine, ribs and pelvis Posture: lordosis 06/12/2013 None Full Exam - General 1995 Musculoskeletal head and neck Overall: head atraumatic 06/12/2013 None Full Exam - General 1994 Musculoskeletal head and neck Overall: cervical spine benign 06/12/2013 None Full Exam - General 1995 Neurologic deep tendon reflexes Overall: deep tendon reflexes intact 06/12/2013 None Full Exam - General 1995 Neurologic gait Conventional walking: wide-based 06/12/2013 None Full Exam - General 1994 Psychiatric orientation/consciousness Oriented to person: yes 06/12/2013 None Full Exam - General 1994 Psychiatric orientation/consciousness Oriented to place: no 06/12/2013 None Full Exam - General 1994 Psychiatric orientation/consciousness Oriented to time: no 06/12/2013 None Full Exam - General 1994 Psychiatric orientation/consciousness Level of consciousness: alert 06/12/2013 None Full Exam - General 1994 Psychiatric mood and affect Overall: normal mood and affect 06/12/2013 None Full Exam - General 1994 Constitutional general appearance Overall: well developed 02/13/2013 None Full Exam - General 1994 Constitutional general appearance Overall: in no acute distress 02/13/2013 None Full Exam - General 1994 Constitutional general appearance Overall: well nourished 02/13/2013 None Full Exam - General 1994 Ears/Nose/Throat otoscopic exam Overall: external auditory canals clear 02/13/2013 None Full Exam - General 1994 Ears/Nose/Throat otoscopic exam Overall: tympanic membranes clear 02/13/2013 None Full Exam - General 1994 Ears/Nose/Throat oral cavity/pharynx/larynx Overall: oral mucosa clear 02/13/2013 None Full Exam - General 1994 Ears/Nose/Throat oral cavity/pharynx/larynx Overall: oropharyngeal mucosa clear 02/13/2013 None Full Exam - General 1994 Ears/Nose/Throat oral cavity/pharynx/larynx Overall: no masses 02/13/2013 None Full Exam - General 1994 Respiratory auscultation Overall: breath sounds clear bilaterally 02/13/2013 None Full Exam - General 1994 Respiratory respiratory effort/rhythm Overall: no retractions 02/13/2013 None Full Exam - General 1994 Respiratory respiratory effort/rhythm Overall: normal rate 02/13/2013 None Full Exam - General 1995 Cardiovascular extremities Overall: no clubbing 02/13/2013 None Full Exam - General 1995 Cardiovascular auscultation of heart Overall: regular rate 02/13/2013 None Full Exam - General 1995 Cardiovascular auscultation of heart Overall: normal heart sounds 02/13/2013 None Full Exam - General 1995 Cardiovascular auscultation of heart Overall: no murmurs 02/13/2013 None Full Exam - General 1995 Abdomen abdominal exam Overall: no tenderness 02/13/2013 None Full Exam - General 1995 Abdomen abdominal exam Overall: normal bowel sounds 02/13/2013 None Full Exam - General 1995 Lymphatic neck nodes Overall: anterior cervical chain benign 02/13/2013 None Full Exam - General 1995 Lymphatic neck nodes Overall: posterior cervical chain benign 02/13/2013 None Full Exam - General 1995 Musculoskeletal spine, ribs and pelvis Overall: ribs benign 02/13/2013 None Full Exam - General 1995 Musculoskeletal spine, ribs and pelvis Posture: kyphosis 02/13/2013 None Full Exam - General 1995 Musculoskeletal spine, ribs and pelvis Posture: lordosis 02/13/2013 None Full Exam - General 1995 Musculoskeletal head and neck Overall: head atraumatic 02/13/2013 None Full Exam - General 1994 Musculoskeletal head and neck Overall: cervical spine benign 02/13/2013 None Full Exam - General 1994 Neurologic deep tendon reflexes Overall: deep tendon reflexes intact 02/13/2013 None Full Exam - General 1994 Neurologic gait Conventional walking: wide-based 02/13/2013 None Full Exam - General 1994 Psychiatric orientation/consciousness Oriented to person: yes 02/13/2013 None Full Exam - General 1994 Psychiatric orientation/consciousness Oriented to place: no 02/13/2013 None Full Exam - General 1994 Psychiatric orientation/consciousness Oriented to time: no 02/13/2013 None Full Exam - General 1994 Psychiatric orientation/consciousness Level of consciousness: alert 02/13/2013 None Full Exam - General 1994 Psychiatric mood and affect Overall: normal mood and affect 02/13/2013 None Full Exam - General 1994 Constitutional general appearance Overall: well developed 01/06/2013 None Full Exam - General 1994 Constitutional general appearance Overall: in no acute distress 01/06/2013 None Full Exam - General 1994 Constitutional general appearance Overall: well nourished 01/06/2013 None Full Exam - General 1994 Ears/Nose/Throat otoscopic exam Overall: external auditory canals clear 01/06/2013 None Full Exam - General 1994 Ears/Nose/Throat otoscopic exam Overall: tympanic membranes clear 01/06/2013 None Full Exam - General 1995 Ears/Nose/Throat oral cavity/pharynx/larynx Overall: oral mucosa clear 01/06/2013 None Full Exam - General 1995 Ears/Nose/Throat oral cavity/pharynx/larynx Overall: oropharyngeal mucosa clear 01/06/2013 None Full Exam - General 1994 Ears/Nose/Throat oral cavity/pharynx/larynx Overall: no masses 01/06/2013 None Full Exam - General 1994 Respiratory auscultation Overall: breath sounds clear bilaterally 01/06/2013 None Full Exam - General 1994 Respiratory respiratory effort/rhythm Overall: no retractions 01/06/2013 None Full Exam - General 1994 Respiratory respiratory effort/rhythm Overall: normal rate 01/06/2013 None Full Exam - General 1994 Cardiovascular extremities Overall: no clubbing 01/06/2013 None Full Exam - General 1994 Cardiovascular auscultation of heart Overall: regular rate 01/06/2013 None Full Exam - General 1994 Cardiovascular auscultation of heart Overall: normal heart sounds 01/06/2013 None Full Exam - General 1994 Cardiovascular auscultation of heart Overall: no murmurs 01/06/2013 None Full Exam - General 1994 Abdomen abdominal exam Overall: no tenderness 01/06/2013 None Full Exam - General 1994 Abdomen abdominal exam Overall: normal bowel sounds 01/06/2013 None Full Exam - General 1994 Lymphatic neck nodes Overall: anterior cervical chain benign 01/06/2013 None Full Exam - General 1994 Lymphatic neck nodes Overall: posterior cervical chain benign 01/06/2013 None Full Exam - General 1994 Musculoskeletal spine, ribs and pelvis Overall: ribs benign 01/06/2013 None Full Exam - General 1994 Musculoskeletal spine, ribs and pelvis Posture: kyphosis 01/06/2013 None Full Exam - General 1994 Musculoskeletal spine, ribs and pelvis Posture: lordosis 01/06/2013 None Full Exam - General 1994 Musculoskeletal head and neck Overall: head atraumatic 01/06/2013 None Full Exam - General 1994 Musculoskeletal head and neck Overall: cervical spine benign 01/06/2013 None Full Exam - General 1994 Neurologic deep tendon reflexes Overall: deep tendon reflexes intact 01/06/2013 None Full Exam - General 1994 Neurologic gait Conventional walking: wide-based 01/06/2013 None Full Exam - General 1994 Psychiatric orientation/consciousness Oriented to person: yes 01/06/2013 None Full Exam - General 1994 Psychiatric orientation/consciousness Oriented to place: no 01/06/2013 None Full Exam - General 1994 Psychiatric orientation/consciousness Oriented to time: no 01/06/2013 None Full Exam - General 1994 Psychiatric orientation/consciousness Level of consciousness: alert 01/06/2013 None Full Exam - General 1994 Psychiatric mood and affect Overall: normal mood and affect 01/06/2013 None Full Exam - General 1994 Constitutional general appearance Overall: well developed 09/19/2012 None Full Exam - General 1994 Constitutional general appearance Overall: in no acute distress 09/19/2012 None Full Exam - General 1994 Constitutional general appearance Overall: well nourished 09/19/2012 None Full Exam - General 1994 Ears/Nose/Throat otoscopic exam Overall: external auditory canals clear 09/19/2012 None Full Exam - General 1994 Ears/Nose/Throat otoscopic exam Overall: tympanic membranes clear 09/19/2012 None Full Exam - General 1994 Ears/Nose/Throat oral cavity/pharynx/larynx Overall: oral mucosa clear 09/19/2012 None Full Exam - General 1994 Ears/Nose/Throat oral cavity/pharynx/larynx Overall: oropharyngeal mucosa clear 09/19/2012 None Full Exam - General 1994 Ears/Nose/Throat oral cavity/pharynx/larynx Overall: no masses 09/19/2012 None Full Exam - General 1994 Respiratory auscultation Overall: breath sounds clear bilaterally 09/19/2012 None Full Exam - General 1994 Respiratory respiratory effort/rhythm Overall: no retractions 09/19/2012 None Full Exam - General 1994 Respiratory respiratory effort/rhythm Overall: normal rate 09/19/2012 None Full Exam - General 1994 Cardiovascular extremities Overall: no clubbing 09/19/2012 None Full Exam - General 1994 Cardiovascular auscultation of heart Overall: regular rate 09/19/2012 None Full Exam - General 1994 Cardiovascular auscultation of heart Overall: normal heart sounds 09/19/2012 None Full Exam - General 1994 Cardiovascular auscultation of heart Overall: no murmurs 09/19/2012 None Full Exam - General 1994 Abdomen abdominal exam Overall: no tenderness 09/19/2012 None Full Exam - General 1994 Abdomen abdominal exam Overall: normal bowel sounds 09/19/2012 None Full Exam - General 1994 Lymphatic neck nodes Overall: anterior cervical chain benign 09/19/2012 None Full Exam - General 1994 Lymphatic neck nodes Overall: posterior cervical chain benign 09/19/2012 None Full Exam - General 1994 Musculoskeletal spine, ribs and pelvis Overall: ribs benign 09/19/2012 None Full Exam - General 1994 Musculoskeletal spine, ribs and pelvis Posture: kyphosis 09/19/2012 None Full Exam - General 1994 Musculoskeletal spine, ribs and pelvis Posture: lordosis 09/19/2012 None Full Exam - General 1994 Musculoskeletal head and neck Overall: head atraumatic 09/19/2012 None Full Exam - General 1994 Musculoskeletal head and neck Overall: cervical spine benign 09/19/2012 None Full Exam - General 1994 Neurologic deep tendon reflexes Overall: deep tendon reflexes intact 09/19/2012 None Full Exam - General 1994 Neurologic gait Conventional walking: wide-based 09/19/2012 None Full Exam - General 1994 Psychiatric orientation/consciousness Oriented to person: yes 09/19/2012 None Full Exam - General 1994 Psychiatric orientation/consciousness Oriented to place: no 09/19/2012 None Full Exam - General 1994 Psychiatric orientation/consciousness Oriented to time: no 09/19/2012 None Full Exam - General 1994 Psychiatric orientation/consciousness Level of consciousness: alert 09/19/2012 None Full Exam - General 1994 Psychiatric mood and affect Overall: normal mood and affect 09/19/2012 None Full Exam - General 1994 Integument inspection of skin Dermatitis: erythema 09/19/2012 under breasts bilaterally Full Exam - Dermatology Chest/Breast breast/chest inspection Overall: normal chest shape 08/08/2012 None Full Exam - Dermatology Extremities inspection & palpation billateral lower extremities no clubbing or cyanosis 08/08/2012 None Full Exam - Dermatology Psychiatric orientation Overall: oriented to person, place and time 08/08/2012 None Full Exam - Dermatology Neurologic mental status Overall: alert 08/08/2012 None Full Exam - Dermatology Integument insp & palp - chest/axillae Lesion: patch 08/08/2012 None Full Exam - Dermatology Integument insp & palp - chest/axillae Location: on both breasts 08/08/2012 under both breasts and between breats Full Exam - Dermatology Integument insp & palp - chest/axillae Color: erythematous 08/08/2012 None Full Exam - Dermatology Integument insp & palp - back Distribution: generalized 08/08/2012 None Full Exam - Dermatology Integument insp & palp - back Location: on the lower back 08/08/2012 None Full Exam - Dermatology Integument insp & palp - back Location: on the upper back 08/08/2012 multiple seborrheic keratosis Full Exam - Dermatology Constitutional general appearance Overall: well nourished 08/08/2012 None Full Exam - Dermatology Constitutional general appearance Overall: well developed 08/08/2012 None Full Exam - Dermatology Constitutional general appearance Overall: in no acute distress 08/08/2012 None Full Exam - Dermatology Constitutional general appearance Overall: of normal body habitus 08/08/2012 None Full Exam - Dermatology Constitutional general appearance Overall: well groomed 08/08/2012 None Full Exam - Dermatology Eyes conjunctiva/ eyelids Overall: clear conjunctiva bilaterally 08/08/2012 None Full Exam - Dermatology Ears/Nose/Throat oropharynx Overall: clear oral mucosa 08/08/2012 None Full Exam - Dermatology Respiratory auscultation Overall: breath sounds clear bilaterally 08/08/2012 None Full Exam - Dermatology Respiratory respiratory effort/rhythm Overall: no retractions 08/08/2012 None Full Exam - Dermatology Respiratory respiratory effort/rhythm Overall: normal rate 08/08/2012 None Full Exam - Dermatology Lymphatic palpation Overall: benign anterior cervical chain 08/08/2012 None Full Exam - Dermatology Lymphatic palpation Overall: benign posterior cervical chain 08/08/2012 None Full Exam - General 1994 Constitutional general appearance Overall: well developed 05/23/2012 None Full Exam - General 1994 Constitutional general appearance Overall: in no acute distress 05/23/2012 None Full Exam - General 1994 Constitutional general appearance Overall: well nourished 05/23/2012 None Full Exam - General 1994 Ears/Nose/Throat otoscopic exam Overall: external auditory canals clear 05/23/2012 None Full Exam - General 1994 Ears/Nose/Throat otoscopic exam Overall: tympanic membranes clear 05/23/2012 None Full Exam - General 1994 Ears/Nose/Throat oral cavity/pharynx/larynx Overall: oral mucosa clear 05/23/2012 None Full Exam - General 1994 Ears/Nose/Throat oral cavity/pharynx/larynx Overall: oropharyngeal mucosa clear 05/23/2012 None Full Exam - General 1994 Ears/Nose/Throat oral cavity/pharynx/larynx Overall: no masses 05/23/2012 None Full Exam - General 1994 Respiratory auscultation Overall: breath sounds clear bilaterally 05/23/2012 None Full Exam - General 1994 Respiratory respiratory effort/rhythm Overall: no retractions 05/23/2012 None Full Exam - General 1994 Respiratory respiratory effort/rhythm Overall: normal rate 05/23/2012 None Full Exam - General 1994 Cardiovascular extremities Overall: no clubbing 05/23/2012 None Full Exam - General 1994 Cardiovascular auscultation of heart Overall: regular rate 05/23/2012 None Full Exam - General 1994 Cardiovascular auscultation of heart Overall: normal heart sounds 05/23/2012 None Full Exam - General 1994 Cardiovascular auscultation of heart Overall: no murmurs 05/23/2012 None Full Exam - General 1994 Abdomen abdominal exam Overall: no tenderness 05/23/2012 None Full Exam - General 1994 Abdomen abdominal exam Overall: normal bowel sounds 05/23/2012 None Full Exam - General 1994 Lymphatic neck nodes Overall: anterior cervical chain benign 05/23/2012 None Full Exam - General 1994 Lymphatic neck nodes Overall: posterior cervical chain benign 05/23/2012 None Full Exam - General 1994 Musculoskeletal spine, ribs and pelvis Overall: ribs benign 05/23/2012 None Full Exam - General 1994 Musculoskeletal spine, ribs and pelvis Posture: kyphosis 05/23/2012 None Full Exam - General 1994 Musculoskeletal spine, ribs and pelvis Posture: lordosis 05/23/2012 None Full Exam - General 1994 Musculoskeletal head and neck Overall: head atraumatic 05/23/2012 None Full Exam - General 1994 Musculoskeletal head and neck Overall: cervical spine benign 05/23/2012 None Full Exam - General 1994 Neurologic deep tendon reflexes Overall: deep tendon reflexes intact 05/23/2012 None Full Exam - General 1994 Neurologic gait Conventional walking: wide-based 05/23/2012 None Full Exam - General 1994 Psychiatric orientation/consciousness Oriented to person: yes 05/23/2012 None Full Exam - General 1994 Psychiatric orientation/consciousness Oriented to place: no 05/23/2012 None Full Exam - General 1994 Psychiatric orientation/consciousness Oriented to time: no 05/23/2012 None Full Exam - General 1994 Psychiatric orientation/consciousness Level of consciousness: alert 05/23/2012 None Full Exam - General 1994 Psychiatric mood and affect Overall: normal mood and affect 05/23/2012 None Full Exam - General 1994 Ears/Nose/Throat otoscopic exam Overall: external auditory canals clear 04/04/2012 None Full Exam - General 1994 Ears/Nose/Throat otoscopic exam Overall: tympanic membranes clear 04/04/2012 None Full Exam - General 1995 Ears/Nose/Throat oral cavity/pharynx/larynx Overall: oral mucosa clear 04/04/2012 None Full Exam - General 1995 Ears/Nose/Throat oral cavity/pharynx/larynx Overall: oropharyngeal mucosa clear 04/04/2012 None Full Exam - General 1995 Ears/Nose/Throat oral cavity/pharynx/larynx Overall: no masses 04/04/2012 None Full Exam - General 1994 Respiratory auscultation Overall: breath sounds clear bilaterally 04/04/2012 None Full Exam - General 1994 Respiratory respiratory effort/rhythm Overall: no retractions 04/04/2012 None Full Exam - General 1994 Respiratory respiratory effort/rhythm Overall: normal rate 04/04/2012 None Full Exam - General 1994 Cardiovascular extremities Overall: no clubbing 04/04/2012 None Full Exam - General 1994 Cardiovascular auscultation of heart Overall: regular rate 04/04/2012 None Full Exam - General 1994 Cardiovascular auscultation of heart Overall: normal heart sounds 04/04/2012 None Full Exam - General 1994 Cardiovascular auscultation of heart Overall: no murmurs 04/04/2012 None Full Exam - General 1994 Abdomen abdominal exam Overall: no tenderness 04/04/2012 None Full Exam - General 1994 Constitutional general appearance Overall: well developed 04/04/2012 None Full Exam - General 1994 Constitutional general appearance Overall: in no acute distress 04/04/2012 None Full Exam - General 1994 Constitutional general appearance Overall: well nourished 04/04/2012 None Full Exam - General 1994 Abdomen abdominal exam Overall: normal bowel sounds 04/04/2012 None Full Exam - General 1994 Lymphatic neck nodes Overall: anterior cervical chain benign 04/04/2012 None Full Exam - General 1994 Lymphatic neck nodes Overall: posterior cervical chain benign 04/04/2012 None Full Exam - General 1994 Musculoskeletal spine, ribs and pelvis Overall: ribs benign 04/04/2012 None Full Exam - General 1994 Musculoskeletal spine, ribs and pelvis Posture: kyphosis 04/04/2012 None Full Exam - General 1994 Musculoskeletal spine, ribs and pelvis Posture: lordosis 04/04/2012 None Full Exam - General 1994 Musculoskeletal head and neck Overall: head atraumatic 04/04/2012 None Full Exam - General 1994 Musculoskeletal head and neck Overall: cervical spine benign 04/04/2012 None Full Exam - General 1994 Neurologic deep tendon reflexes Overall: deep tendon reflexes intact 04/04/2012 None Full Exam - General 1994 Neurologic gait Conventional walking: wide-based 04/04/2012 None Full Exam - General 1994 Psychiatric orientation/consciousness Oriented to person: yes 04/04/2012 None Full Exam - General 1994 Psychiatric orientation/consciousness Oriented to place: no 04/04/2012 None Full Exam - General 1994 Psychiatric orientation/consciousness Oriented to time: no 04/04/2012 None Full Exam - General 1994 Psychiatric orientation/consciousness Level of consciousness: alert 04/04/2012 None Full Exam - General 1994 Psychiatric mood and affect Overall: normal mood and affect 04/04/2012 None Full Exam - General 1994 Constitutional general appearance Overall: well nourished 03/21/2012 None Full Exam - General 1994 Constitutional general appearance Overall: well developed 03/21/2012 None Full Exam - General 1994 Constitutional general appearance Overall: in no acute distress 03/21/2012 None Full Exam - General 1994 Ears/Nose/Throat otoscopic exam Overall: tympanic membranes clear 03/21/2012 None Full Exam - General 1994 Ears/Nose/Throat otoscopic exam Overall: external auditory canals clear 03/21/2012 None Full Exam - General 1994 Ears/Nose/Throat oral cavity/pharynx/larynx Overall: oropharyngeal mucosa clear 03/21/2012 None Full Exam - General 1995 Ears/Nose/Throat oral cavity/pharynx/larynx Overall: no masses 03/21/2012 None Full Exam - General 1995 Ears/Nose/Throat oral cavity/pharynx/larynx Overall: oral mucosa clear 03/21/2012 None Full Exam - General 1994 Respiratory respiratory effort/rhythm Overall: normal rate 03/21/2012 None Full Exam - General 1994 Respiratory respiratory effort/rhythm Overall: no retractions 03/21/2012 None Full Exam - General 1994 Respiratory auscultation Overall: breath sounds clear bilaterally 03/21/2012 None Full Exam - General 1994 Cardiovascular auscultation of heart Overall: regular rate 03/21/2012 None Full Exam - General 1994 Cardiovascular auscultation of heart Overall: normal heart sounds 03/21/2012 None Full Exam - General 1994 Cardiovascular auscultation of heart Overall: no murmurs 03/21/2012 None Full Exam - General 1994 Cardiovascular extremities Overall: no clubbing 03/21/2012 None Full Exam - General 1994 Abdomen abdominal exam Overall: no tenderness 03/21/2012 None Full Exam - General 1994 Abdomen abdominal exam Overall: normal bowel sounds 03/21/2012 None Full Exam - General 1994 Lymphatic neck nodes Overall: anterior cervical chain benign 03/21/2012 None Full Exam - General 1994 Lymphatic neck nodes Overall: posterior cervical chain benign 03/21/2012 None Full Exam - General 1994 Musculoskeletal head and neck Overall: cervical spine benign 03/21/2012 None Full Exam - General 1994 Musculoskeletal head and neck Overall: head atraumatic 03/21/2012 None Full Exam - General 1994 Musculoskeletal spine, ribs and pelvis Overall: ribs benign 03/21/2012 None Full Exam - General 1994 Musculoskeletal spine, ribs and pelvis Posture: kyphosis 03/21/2012 None Full Exam - General 1994 Musculoskeletal spine, ribs and pelvis Posture: lordosis 03/21/2012 None Full Exam - General 1994 Psychiatric orientation/consciousness Oriented to person: yes 03/21/2012 None Full Exam - General 1994 Psychiatric orientation/consciousness Oriented to time: no 03/21/2012 None Full Exam - General 1994 Psychiatric orientation/consciousness Oriented to place: no 03/21/2012 None Full Exam - General 1994 Psychiatric orientation/consciousness Level of consciousness: alert 03/21/2012 None Full Exam - General 1994 Psychiatric mood and affect Overall: normal mood and affect 03/21/2012 None Full Exam - General 1994 Neurologic deep tendon reflexes Overall: deep tendon reflexes intact 03/21/2012 None Full Exam - General 1994 Neurologic gait Conventional walking: wide-based 03/21/2012 None Procedures Procedure Codes Date ADMIN INFLUENZA VIRUS VAC CPT-4: G0008 06/22/2016 FLU VACC PRSV FREE INC ANTIG CPT-4: 21112 06/22/2016 ADMIN PNEUMOCOCCAL VACCINE SNOMED CT: 86625683 CPT-4: G0009 09/16/2015 PNEUMOCOCCAL VACC 13 QUYEN IM Formatting Model/CDA Sections, Assigned to SNOMED CT: 20780111 CPT-4: 90132Ohkrggc 09/16/2015 ADMIN INFLUENZA VIRUS VAC Formatting Model/CDA Sections, Assigned to/Arabella Sharma CPT-4: [id number] 07/01/2015 FLU VACC 4 QUYEN 3 YRS PLUS IM SNOMED CT: 45404217 CPT-4: 27908 07/01/2015 FLU VAC NO PRSV 4 QUYEN 3 YRS+ CPT-4: 69667 06/11/2014 ADMIN INFLUENZA VIRUS VAC Assigned to/Arabella Sharma CPT-4: [id number] 06/11/2014 URINALYSIS NONAUTO W/O SCOPE CPT-4: 45283 07/31/2013 ADMIN INFLUENZA VIRUS VAC CPT-4: G0008 07/07/2013 FLULAVAL VACC, 3 YRS & >, IM CPT-4: Q2036 07/07/2013 ROUTINE VENIPUNCTURE CPT-4: 21211 07/07/2013 28095 EST. PATIENT, LEVEL IV CPT-4: 03411 06/12/2013 32121 EST. PATIENT, LEVEL IV CPT-4: 87808 02/13/2013 ROUTINE VENIPUNCTURE CPT-4: 19910 01/06/2013 URINALYSIS NONAUTO W/O SCOPE CPT-4: 52471 01/06/2013 19264 EST. PATIENT, LEVEL IV CPT-4: 83596 09/19/2012 URINALYSIS NONAUTO W/O SCOPE CPT-4: 36021 09/19/2012 IMMUNIZATION ADMIN CPT -4: 14390 07/25/2012 Influenza Virus Vaccine, Split Virus, >3 Yrs, IM CPT-4: 18169 07/25/2012 URINALYSIS NONAUTO W/O SCOPE CPT-4: 52595 05/23/2012 URINALYSIS NONAUTO W/O SCOPE CPT-4: 89356 04/05/2012 Vital Signs Date Vital 11/22/2017 Blood Pressure 1: 146/84 Code : 8480-6 BMI: 29.4 Code : 99294-6 Heart Rate 1 : 72 bpm Height: 5'2" SpO2: 96% Weight: 161 lbs 08/16/2017 Blood Pressure 1: 130/68 Code : 8480-6 BMI: 28.9 Code : 22167-6 Heart Rate 1 : 63 bpm Height: 5'2" SpO2: 96% Weight: 158 lbs 05/17/2017 Blood Pressure 1: 138/80 Code : 8480-6 Heart Rate 1: 88 bpm Height: SpO2: 96% Weight: 04/25/2017 Blood Pressure 1: 140/74 Code : 8480-6 BMI: 29.8 Code : 96262-2 Heart Rate 1 : 106 bpm Height: 5'2" SpO2: 96% Weight: 163 lbs 03/22/2017 Blood Pressure 1: 128/82 Code : 8480-6 BMI: 30.4 Code : 76994-2 Heart Rate 1 : 76 bpm Height: 5'2" SpO2: 95% Weight: 166 lbs 12/21/2016 Blood Pressure 1: 144/80 Code : 8480-6 BMI: 30.9 Code : 67361-5 Heart Rate 1 : 72 bpm Height: 5'2" SpO2: 98% Weight: 169 lbs 09/21/2016 Blood Pressure 1: 140/76 Code : 8480-6 BMI: 30.5 Code : 01355-2 Heart Rate 1 : 78 bpm Height: 5'2" SpO2: 97% Weight: 167 lbs 06/22/2016 Blood Pressure 1: 132/74 Code : 8480-6 BMI: 30.9 Code : 08077-1 Heart Rate 1 : 71 bpm Height: 5'2" SpO2: 98% Weight: 169 lbs 03/23/2016 Blood Pressure 1: 122/68 Code : 8480-6 BMI: 29.8 Code : 96326-3 Heart Rate 1 : 68 bpm Height: 5'2" SpO2: 98% Weight: 163 lbs 12/16/2015 Blood Pressure 1: 142/70 Code : 8480-6 BMI: 30.5 Code : 22196-4 Heart Rate 1 : 68 bpm Height: 5'2" SpO2: 98% Weight: 167 lbs 09/16/2015 Blood Pressure 1: 124/58 Code : 8480-6 BMI: 30.0 Code : 47212-7 Heart Rate 1 : 59 bpm Height: 5'2" SpO2: 96% Weight: 164 lbs 07/01/2015 Blood Pressure 1: 128/74 Code : 8480-6 BMI: 29.8 Code : 16019-9 Heart Rate 1 : 62 bpm Height: 5'2" SpO2: 98% Weight: 163 lbs 02/25/2015 Blood Pressure 1: 142/92 Code : 8480-6 Blood Pressure 2: 138/90 Code: 8480-6 BMI: 29.1 Code: 49225-1 Heart Rate 1: 78 bpm Height: 5'2" SpO2: 98% Weight: 159 lbs 11/19/2014 Blood Pressure 1: 130/80 Code : 8480-6 BMI: 28.3 Code : 11386-8 Heart Rate 1 : 68 bpm Height: 5'2" Weight: 155 lbs 08/13/2014 Blood Pressure 1: 122/62 Code : 8480-6 BMI: 27.4 Code : 27886-5 Heart Rate 1 : 72 bpm Height: 5'2" Weight: 150 lbs 06/11/2014 Blood Pressure 1: 112/56 Code : 8480-6 BMI: 27.0 Code : 15996-4 Heart Rate 1 : 67 bpm Height: 5'2" SpO2: 98% Weight: 147 lbs 8 oz 04/16/2014 Blood Pressure 1: 120/62 Code : 8480-6 BMI: 26.7 Code : 44092-4 Heart Rate 1 : 68 bpm Height: 5'2" Weight: 146 lbs 03/12/2014 Blood Pressure 1: 132/82 Code : 8480-6 BMI: 27.1 Code : 58668-5 Heart Rate 1 : 64 bpm Height: 5'2" Weight: 148 lbs 02/26/2014 Blood Pressure 1: 104/50 Code : 8480-6 BMI: 25.8 Code : 18493-5 Heart Rate 1 : 64 bpm Height: 5'2" Weight: 141 lbs 11/27/2013 Blood Pressure 1: 122/68 Code : 8480-6 Heart Rate 1: 60 bpm Weight: 153 lbs 10/16/2013 Blood Pressure 1: 136/72 Code : 8480-6 BMI: 27.4 Code : 62084-9 Heart Rate 1 : 80 bpm Height: 5'2" Weight: 150 lbs 07/10/2013 Blood Pressure 1: 126/76 Code : 8480-6 BMI: 27.3 Code : 23767-2 Heart Rate 1 : 80 bpm Height: 5'2" Weight: 149 lbs 06/12/2013 Blood Pressure 1: 168/80 Code : 8480-6 BMI: 27.3 Code : 05104-9 Heart Rate 1 : 76 bpm Height: 5'2" Weight: 149 lbs 8 oz 02/13/2013 Blood Pressure 1: 108/72 Code : 8480-6 BMI: 27.4 Code : 30552-6 Heart Rate 1 : 80 bpm Height: 5'2" Weight: 150 lbs 01/06/2013 Blood Pressure 1: 126/62 Code : 8480-6 BMI: 27.6 Code : 58233-8 Heart Rate 1 : 76 bpm Height: 5'2" SpO2: 99% Weight: 151 lbs 09/19/2012 Blood Pressure 1: 132/62 Code : 8480-6 Heart Rate 1: 72 bpm Weight: 153 lbs 08/08/2012 Blood Pressure 1: 146/62 Code : 8480-6 Heart Rate 1: 80 bpm Weight: 156 lbs 05/23/2012 Blood Pressure 1: 124/64 Code : 8480-6 Heart Rate 1: 80 bpm Respiratory Rate : 16 bpm Weight: 156 lbs 04/04/2012 Blood Pressure 1: 130/78 Code : 8480-6 Heart Rate 1: 86 bpm Respiratory Rate : 18 bpm Weight: 152 lbs 03/21/2012 Blood Pressure 1: 114/58 Code : 8480-6 BMI: 27.8 Code : 48646-4 Heart Rate 1 : 80 bpm Height: 5'2" Respiratory Rate: 20 bpm Weight: 152 lbs Functional Status No Functional Status data History of Present Illness Symptom Name Status Result Effective Date Notes memory loss Onset and Resolution gradual in onset 11/22/2017 None memory loss Onset and Resolution ongoing 11/22/2017 None memory loss Onset of Symptom during adulthood 11/22/2017 None memory loss Limitation on Activities moderately limits activities 11/22/2017 None memory loss Pertinent Findings difficulty reading 11/22/2017 None memory loss Pertinent Findings difficulty writing 11/22/2017 None memory loss Quality chronic 11/22/2017 None hypertension Quality primary hypertension 11/22/2017 None hypertension Onset and Resolution ongoing 11/22/2017 None hypertension Onset of Symptom during adulthood 11/22/2017 None hypertension Alleviating Factors medication 11/22/2017 None hypertension Pertinent Findings edema 11/22/2017 in her feet memory loss Alleviating Factors medication 11/22/2017 None memory loss Onset and Resolution gradual in onset 08/16/2017 None memory loss Onset and Resolution ongoing 08/16/2017 None memory loss Onset of Symptom during adulthood 08/16/2017 None memory loss Limitation on Activities moderately limits activities 08/16/2017 None memory loss Pertinent Findings difficulty reading 08/16/2017 None memory loss Pertinent Findings difficulty writing 08/16/2017 None memory loss Quality chronic 08/16/2017 None blood pressure followup Quality constant 08/16/2017 None blood pressure followup Onset and Resolution ongoing 08/16/2017 None blood pressure followup Pertinent Findings anxiety 08/16/2017 None blood pressure followup Pertinent Findings confusion 08/16/2017 None blood pressure followup Pertinent Findings Denies dizziness 08/16/2017 None memory loss Onset and Resolution gradual in onset 05/17/2017 None memory loss Onset and Resolution ongoing 05/17/2017 None memory loss Onset of Symptom during adulthood 05/17/2017 None memory loss Limitation on Activities moderately limits activities 05/17/2017 None memory loss Quality chronic 05/17/2017 None blood pressure followup Quality constant 05/17/2017 None blood pressure followup Onset and Resolution ongoing 05/17/2017 None blood pressure followup Pertinent Findings anxiety 05/17/2017 None blood pressure followup Pertinent Findings confusion 05/17/2017 None blood pressure followup Pertinent Findings Denies dizziness 05/17/2017 None memory loss Pertinent Findings difficulty reading 05/17/2017 None memory loss Pertinent Findings difficulty writing 05/17/2017 None memory loss Onset and Resolution gradual in onset 04/25/2017 None memory loss Onset and Resolution ongoing 04/25/2017 None memory loss Onset of Symptom during adulthood 04/25/2017 None memory loss Limitation on Activities moderately limits activities 04/25/2017 None memory loss Quality chronic 04/25/2017 None blood pressure followup Quality constant 04/25/2017 None blood pressure followup Onset and Resolution ongoing 04/25/2017 None blood pressure followup Pertinent Findings anxiety 04/25/2017 None blood pressure followup Pertinent Findings confusion 04/25/2017 None blood pressure followup Pertinent Findings Denies dizziness 04/25/2017 None memory loss Onset and Resolution gradual in onset 03/22/2017 None memory loss Onset and Resolution ongoing 03/22/2017 None memory loss Onset of Symptom during adulthood 03/22/2017 None memory loss Limitation on Activities moderately limits activities 03/22/2017 None memory loss Quality chronic 03/22/2017 None anxiety Quality agitation 03/22/2017 None anxiety Quality chronic 03/22/2017 None anxiety Quality intermittent 03/22/2017 None anxiety Onset and Resolution improved during the day 03/22/2017 worse at night if she has been out of her normal surroundings anxiety Triggers stress 03/22/2017 None anxiety Pertinent Findings Denies dyspnea 03/22/2017 None anxiety Pertinent Findings Denies nausea 03/22/2017 None memory loss Onset and Resolution ongoing 12/21/2016 None memory loss Onset of Symptom during adulthood 12/21/2016 None memory loss Limitation on Activities moderately limits activities 12/21/2016 None hallucination Quality chronic 12/21/2016 None hallucination Quality intermittent 12/21/2016 None hallucination Onset and Resolution ongoing 12/21/2016 None hallucination Onset of Symptom during adulthood 12/21/2016 None hallucination Limitation on Activities moderately limits activities 12/21/2016 None hallucination Alleviating Factors medication 12/21/2016 None anxiety Quality agitation 12/21/2016 None anxiety Quality chronic 12/21/2016 None anxiety Quality intermittent 12/21/2016 None anxiety Onset and Resolution improved during the day 12/21/2016 worse at night if she has been out of her normal surroundings anxiety Triggers stress 12/21/2016 None hyperlipidemia Onset and Resolution gradual in onset 12/21/2016 None hyperlipidemia Onset and Resolution ongoing 12/21/2016 None hyperlipidemia Onset of Symptom during adulthood 12/21/2016 None hyperlipidemia Alleviating Factors medication 12/21/2016 None hyperlipidemia Exacerbating Factors diet 12/21/2016 None memory loss Onset and Resolution gradual in onset 12/21/2016 None memory loss Quality chronic 12/21/2016 None memory loss Onset and Resolution ongoing 09/21/2016 None memory loss Onset of Symptom during adulthood 09/21/2016 None memory loss Limitation on Activities moderately limits activities 09/21/2016 None hallucination Quality chronic 09/21/2016 None hallucination Onset and Resolution ongoing 09/21/2016 None hallucination Onset of Symptom during adulthood 09/21/2016 None hallucination Limitation on Activities moderately limits activities 09/21/2016 None hallucination Alleviating Factors medication 09/21/2016 None anxiety Quality agitation 09/21/2016 None anxiety Quality chronic 09/21/2016 None anxiety Quality intermittent 09/21/2016 None anxiety Onset and Resolution improved during the day 09/21/2016 worse at night if she has been out of her normal surroundings anxiety Triggers stress 09/21/2016 None hyperlipidemia Onset and Resolution gradual in onset 09/21/2016 None hyperlipidemia Onset and Resolution ongoing 09/21/2016 None hyperlipidemia Onset of Symptom during adulthood 09/21/2016 None hyperlipidemia Alleviating Factors medication 09/21/2016 None hyperlipidemia Exacerbating Factors diet 09/21/2016 None hallucination Quality intermittent 09/21/2016 None memory loss Onset and Resolution ongoing 06/22/2016 None memory loss Onset of Symptom during adulthood 06/22/2016 None memory loss Limitation on Activities moderately limits activities 06/22/2016 None hallucination Quality chronic 06/22/2016 None hallucination Onset and Resolution ongoing 06/22/2016 None hallucination Onset of Symptom during adulthood 06/22/2016 None hallucination Limitation on Activities moderately limits activities 06/22/2016 None hallucination Alleviating Factors medication 06/22/2016 None anxiety Quality agitation 06/22/2016 None anxiety Quality chronic 06/22/2016 None anxiety Quality intermittent 06/22/2016 None anxiety Onset and Resolution improved during the day 06/22/2016 worse at night if she has been out of her normal surroundings anxiety Triggers stress 06/22/2016 None hyperlipidemia Onset and Resolution gradual in onset 06/22/2016 None hyperlipidemia Onset and Resolution ongoing 06/22/2016 None hyperlipidemia Onset of Symptom during adulthood 06/22/2016 None hyperlipidemia Alleviating Factors medication 06/22/2016 None hyperlipidemia Exacerbating Factors diet 06/22/2016 None memory loss Onset and Resolution ongoing 03/23/2016 None memory loss Onset of Symptom during adulthood 03/23/2016 None memory loss Limitation on Activities moderately limits activities 03/23/2016 None hallucination Quality chronic 03/23/2016 None hallucination Onset and Resolution ongoing 03/23/2016 None hallucination Onset of Symptom during adulthood 03/23/2016 None hallucination Limitation on Activities moderately limits activities 03/23/2016 None hallucination Alleviating Factors medication 03/23/2016 None anxiety Quality agitation 03/23/2016 None anxiety Quality chronic 03/23/2016 None anxiety Quality intermittent 03/23/2016 None anxiety Onset and Resolution improved during the day 03/23/2016 worse at night if she has been out of her normal surroundings anxiety Triggers stress 03/23/2016 None hyperlipidemia Onset and Resolution gradual in onset 03/23/2016 None hyperlipidemia Onset and Resolution ongoing 03/23/2016 None hyperlipidemia Onset of Symptom during adulthood 03/23/2016 None hyperlipidemia Alleviating Factors medication 03/23/2016 None hyperlipidemia Exacerbating Factors diet 03/23/2016 None memory loss Onset and Resolution ongoing 12/16/2015 None memory loss Onset of Symptom during adulthood 12/16/2015 None memory loss Limitation on Activities moderately limits activities 12/16/2015 None hallucination Quality chronic 12/16/2015 None hallucination Onset and Resolution ongoing 12/16/2015 None hallucination Onset of Symptom during adulthood 12/16/2015 None hallucination Limitation on Activities moderately limits activities 12/16/2015 None hallucination Alleviating Factors medication 12/16/2015 None anxiety Quality agitation 12/16/2015 None anxiety Quality chronic 12/16/2015 None anxiety Quality intermittent 12/16/2015 None anxiety Onset and Resolution improved during the day 12/16/2015 worse at night if she has been out of her normal surroundings anxiety Triggers stress 12/16/2015 None memory loss Onset and Resolution ongoing 09/16/2015 None memory loss Onset of Symptom during adulthood 09/16/2015 None memory loss Limitation on Activities moderately limits activities 09/16/2015 None hallucination Quality chronic 09/16/2015 None hallucination Onset and Resolution ongoing 09/16/2015 None hallucination Onset of Symptom during adulthood 09/16/2015 None hallucination Limitation on Activities moderately limits activities 09/16/2015 None hallucination Alleviating Factors medication 09/16/2015 None anxiety Quality agitation 09/16/2015 None anxiety Quality chronic 09/16/2015 None anxiety Quality intermittent 09/16/2015 None anxiety Onset and Resolution worse during the day 09/16/2015 None anxiety Onset of Symptom _ months ago 09/16/2015 reports doing much better - anxiety Triggers no known associated factors 09/16/2015 None hallucination Quality chronic 07/01/2015 None hallucination Onset and Resolution ongoing 07/01/2015 None hallucination Onset of Symptom during adulthood 07/01/2015 None hallucination Limitation on Activities moderately limits activities 07/01/2015 None hallucination Alleviating Factors medication 07/01/2015 None anxiety Quality agitation 07/01/2015 None anxiety Quality chronic 07/01/2015 None anxiety Quality intermittent 07/01/2015 None anxiety Onset and Resolution worse during the day 07/01/2015 None anxiety Onset of Symptom _ months ago 07/01/2015 reports doing much better - anxiety Triggers no known associated factors 07/01/2015 None memory loss Onset and Resolution ongoing 07/01/2015 None memory loss Onset of Symptom during adulthood 07/01/2015 None memory loss Limitation on Activities moderately limits activities 07/01/2015 None anxiety Quality agitation 02/25/2015 None anxiety Quality chronic 02/25/2015 None anxiety Quality intermittent 02/25/2015 None anxiety Onset and Resolution worse during the day 02/25/2015 None anxiety Triggers no known associated factors 02/25/2015 None anxiety Onset of Symptom _ months ago 02/25/2015 reports doing much better, every now and then gets upset about going home. cough Onset of Symptom 2 weeks ago 11/19/2014 None cough Pertinent Findings Denies chest discomfort 11/19/2014 None cough Pertinent Findings Denies dyspnea 11/19/2014 None cough Pertinent Findings nasal congestion 11/19/2014 None cough Pertinent Findings Denies sputum production 11/19/2014 None sinus congestion Onset of Symptom 2 weeks ago 11/19/2014 None sinus congestion Pertinent Findings cough 11/19/2014 None anxiety Onset of Symptom 2 weeks ago 11/19/2014 daughter reports she gets upset about different things anxiety Quality agitation 11/19/2014 None anxiety Quality chronic 11/19/2014 None anxiety Quality intermittent 11/19/2014 None anxiety Onset and Resolution worse during the day 11/19/2014 None anxiety Triggers no known associated factors 11/19/2014 None depression Quality chronic 08/13/2014 None depression Onset and Resolution ongoing 08/13/2014 None depression Limitation on Activities does not limit activities 08/13/2014 None depression Frequency of Episodes unchanged 08/13/2014 None depression Significant Medical Conditions anxiety disorder 08/13/2014 None depression Triggers no known associated factors 08/13/2014 None depression Alleviating Factors activity 08/13/2014 None depression Pertinent Findings depressed mood 08/13/2014 worse in [place] depression Pertinent Findings Denies sleep disturbance 08/13/2014 None depression Triggers no known associated factors 06/11/2014 None depression Alleviating Factors activity 06/11/2014 None depression Pertinent Findings depressed mood 06/11/2014 worse in [place] depression Pertinent Findings Denies sleep disturbance 06/11/2014 None skin lesion Quality ulcerated 06/11/2014 right lower side of mouth depression Quality chronic 06/11/2014 None depression Onset and Resolution ongoing 06/11/2014 None depression Limitation on Activities does not limit activities 06/11/2014 None depression Frequency of Episodes unchanged 06/11/2014 None depression Significant Medical Conditions anxiety disorder 06/11/2014 None skin lesion Onset and Resolution ongoing 06/11/2014 improved skin lesion Quality ulcerated 04/16/2014 right lower side of mouth skin lesion Pertinent Findings Denies facial numbness 04/16/2014 None skin lesion Pertinent Findings Denies cough 04/16/2014 None skin lesion Pertinent Findings Denies fever 04/16/2014 None depression Onset of Symptom 1 weeks ago 04/16/2014 None depression Triggers no known associated factors 04/16/2014 None depression Pertinent Findings depressed mood 04/16/2014 worse in [place] depression Pertinent Findings Denies sleep disturbance 04/16/2014 None depression Alleviating Factors activity 04/16/2014 None skin lesion Onset and Resolution ongoing 04/16/2014 None skin lesion Severity mild 04/16/2014 None skin lesion Frequency of Episodes unchanged 04/16/2014 None skin lesion Triggers activity 04/16/2014 dentures causing irritation skin lesion Quality raised 03/12/2014 2 sores in mouth skin lesion Quality red 03/12/2014 None skin lesion Location upper back 03/12/2014 None skin lesion Onset and Resolution ongoing 03/12/2014 None skin lesion Onset of Symptom 2-3 days ago 03/12/2014 None skin lesion Quality enlarging 03/12/2014 None skin lesion Triggers stress 03/12/2014 and recent illness weight loss Onset and Resolution gradual in onset 02/26/2014 None weight loss Weight Status has lost _ pounds in _weeks 02/26/2014 12 pounds in 3 months rash Location-Trunk on the left side of the chest 02/26/2014 None cerumen Location in both ears 02/26/2014 None cerumen Quality worsening 02/26/2014 None medication follow up Location oral intake 11/27/2013 None medication follow up Additional Comments medication: RISPERDAL 11/27/2013 None medication follow up side effect Other: DEMENTIA WITH PSYCHOSIS 11/27/2013 APPEARS THAT SYMPTOMS ARE WORSENING, CURRENT MEDICAITON DOES NOT SEEM TO BE ENOUGH FOR THE PATIENT. medication follow up Significant Past Medical History dementia 11/27/2013 None anxiety Quality chronic 10/16/2013 None anxiety Onset and Resolution ongoing 10/16/2013 None anxiety Quality worsening 10/16/2013 None memory loss Onset and Resolution gradual in onset 10/16/2013 None memory loss Onset and Resolution ongoing 10/16/2013 None memory loss Quality difficulty remembering faces 10/16/2013 None memory loss Quality difficulty remembering names 10/16/2013 None memory loss Quality worsening 10/16/2013 None memory loss Onset and Resolution ongoing 07/10/2013 None memory loss Onset and Resolution gradual in onset 07/10/2013 None memory loss Limitation on Activities does not limit activities 07/10/2013 None memory loss Quality difficulty remembering faces 07/10/2013 None memory loss Quality difficulty remembering names 07/10/2013 None memory loss Quality worsening 07/10/2013 None hallucination Quality chronic 07/10/2013 --Improved hallucination Onset and Resolution ongoing 07/10/2013 None hallucination Onset of Symptom during adulthood 07/10/2013 --Improved hallucination Limitation on Activities moderately limits activities 07/10/2013 -- Improved hallucination Alleviating Factors medication 07/10/2013 None hallucination Pertinent Findings delusions 07/10/2013 --Improved hallucination Pertinent Findings Denies pain 07/10/2013 None hallucination Pertinent Findings sensory changes 07/10/2013 macular degeneration hallucination Pertinent Findings weakness 07/10/2013 --Improved memory loss Onset and Resolution ongoing 06/12/2013 None memory loss Limitation on Activities does not limit activities 06/12/2013 None memory loss Quality difficulty remembering faces 06/12/2013 None memory loss Quality difficulty remembering names 06/12/2013 None memory loss Quality worsening 06/12/2013 None hallucination Quality chronic 06/12/2013 None hallucination Onset and Resolution ongoing 06/12/2013 None hallucination Onset of Symptom during adulthood 06/12/2013 None hallucination Limitation on Activities moderately limits activities 06/12/2013 None hallucination Alleviating Factors medication 06/12/2013 None hallucination Pertinent Findings delusions 06/12/2013 None hallucination Pertinent Findings Denies pain 06/12/2013 None hallucination Pertinent Findings sensory changes 06/12/2013 macular degeneration hallucination Pertinent Findings weakness 06/12/2013 None hallucination Quality chronic 02/13/2013 None hallucination Onset and Resolution ongoing 02/13/2013 None hallucination Onset of Symptom during adulthood 02/13/2013 None hallucination Limitation on Activities moderately limits activities 02/13/2013 None hallucination Alleviating Factors medication 02/13/2013 None hallucination Pertinent Findings delusions 02/13/2013 None hallucination Pertinent Findings Denies pain 02/13/2013 None hallucination Pertinent Findings sensory changes 02/13/2013 macular degeneration hallucination Pertinent Findings weakness 02/13/2013 None dizziness Quality intermittent 02/13/2013 None dizziness Onset and Resolution ongoing 02/13/2013 had a dizzy spell yesterday while eating lunch. Took 1/4 meclizine-states it helped but it put her to sleep. dizziness Triggers no known associated factors 02/13/2013 None dizziness Pertinent Findings Denies cough 02/13/2013 None dizziness Pertinent Findings Denies dyspnea 02/13/2013 None dizziness Pertinent Findings Denies palpitations 02/13/2013 None dizziness Onset and Resolution ongoing 01/06/2013 had a dizzy spell yesterday while eating lunch. Took 1/4 meclizine-states it helped but it put her to sleep. hallucination Quality chronic 01/06/2013 None hallucination Onset and Resolution ongoing 01/06/2013 None hallucination Onset of Symptom during adulthood 01/06/2013 None hallucination Limitation on Activities moderately limits activities 01/06/2013 None hallucination Alleviating Factors medication 01/06/2013 None hallucination Pertinent Findings delusions 01/06/2013 None hallucination Pertinent Findings Denies pain 01/06/2013 None hallucination Pertinent Findings exhaustion 01/06/2013 None hallucination Pertinent Findings weakness 01/06/2013 None hallucination Pertinent Findings sensory changes 01/06/2013 macular degeneration dizziness Quality intermittent 01/06/2013 None dizziness Triggers no known associated factors 01/06/2013 None dizziness Pertinent Findings Denies cough 01/06/2013 None dizziness Pertinent Findings Denies dyspnea 01/06/2013 None dizziness Pertinent Findings Denies palpitations 01/06/2013 None rash Location-Trunk on both breasts 09/19/2012 under breasts, rash Quality improving 09/19/2012 None foot pain Location on the left 09/19/2012 None foot pain Onset of Symptom 1 weeks ago 09/19/2012 pt states it was painful on top of foot rash Color erythematous 09/19/2012 None rash Onset and Resolution gradual in onset 09/19/2012 None rash Limitation on Activities does not limit activities 09/19/2012 None rash Severity worsening 09/19/2012 None rash Prior Treatments previously treated 09/19/2012 None rash Pertinent Findings Denies flushing 09/19/2012 None rash Pertinent Findings itching 09/19/2012 None rash Pertinent Findings tenderness 09/19/2012 None foot pain Severity moderate 09/19/2012 None foot pain Pertinent Findings pain with movement 09/19/2012 None skin lesion Quality worsening 08/08/2012 None skin lesion Quality scabbed 08/08/2012 None skin lesion Onset and Resolution gradual in onset 08/08/2012 using eucerin and helps some skin lesion Severity mild 08/08/2012 None skin lesion Frequency of Episodes unchanged 08/08/2012 None skin lesion Triggers no known associated factors 08/08/2012 None skin lesion Alleviating Factors medication 08/08/2012 eurcerin cream rash Location-Trunk on the right breast 08/08/2012 None rash Location-Trunk on the left breast 08/08/2012 None rash Quality acute 10/2011 None rash Quality erythematous 08/08/2012 None rash Color erythematous 08/08/2012 None rash Onset and Resolution ongoing 08/08/2012 None rash Limitation on Activities does not limit activities 08/08/2012 None rash Severity moderate 08/08/2012 None memory loss Onset and Resolution ongoing 05/23/2012 but family feels stable memory loss Onset and Resolution gradual in onset 05/23/2012 None memory loss Limitation on Activities is incapacitating 05/23/2012 None memory loss Triggers no known associated factors 05/23/2012 None memory loss Alleviating Factors rest 05/23/2012 None memory loss Pertinent Findings Denies ataxia 05/23/2012 None memory loss Pertinent Findings personality changes 05/23/2012 None memory loss Quality chronic 05/23/2012 None memory loss Onset of Symptom during adulthood 05/23/2012 None memory loss Frequency of Episodes decreasing 05/23/2012 None memory loss Significant Medical Conditions other neurologic symptoms 05/23/2012 None memory loss Quality stable 05/23/2012 None disturbances of memory Quality past recall 04/04/2012 None memory loss Onset and Resolution gradual in onset 04/04/2012 None memory loss Onset of Symptom _ years ago 04/04/2012 None memory loss Limitation on Activities is incapacitating 04/04/2012 None memory loss Triggers no known associated factors 04/04/2012 None hallucination Pertinent Findings disorders of thought 04/04/2012 -- Improved memory loss Alleviating Factors rest 04/04/2012 None memory loss Pertinent Findings Denies ataxia 04/04/2012 None memory loss Pertinent Findings personality changes 04/04/2012 None memory loss Quality chronic 04/04/2012 None memory loss Quality worsening 04/04/2012 None hallucination Quality auditory 04/04/2012 None hallucination Quality chronic 04/04/2012 None hallucination Quality constant 04/04/2012 None hallucination Quality illusions 04/04/2012 None hallucination Quality olfactory 04/04/2012 None hallucination Quality visual 04/04/2012 None hallucination Onset and Resolution ongoing 04/04/2012 family report by is seeing the boys and cannot be persuaded that that is false. hallucination Onset of Symptom _ years ago 04/04/2012 None hallucination Limitation on Activities moderately limits activities 04/04/2012 -- Improved hallucination Frequency of Episodes daily 04/04/2012 None hallucination Triggers no known associated factors 04/04/2012 None hallucination Alleviating Factors medication 04/04/2012 None hallucination Pertinent Findings delusions 04/04/2012 --Improved memory loss Onset and Resolution gradual in onset 03/21/2012 None memory loss Quality chronic 03/21/2012 None memory loss Quality worsening 03/21/2012 None hallucination Quality illusions 03/21/2012 None hallucination Onset and Resolution ongoing 03/21/2012 family report by is seeing the boys and cannot be persuaded that that is false. diarrhea Quality intermittent 03/21/2012 family reports she has had some incontinence of stool fatigue Quality worsening 03/21/2012 family states she sometimes sleeps during the day. will occ have good nights but mostly awake off and on near-syncope/dizziness Quality acute 03/21/2012 None near-syncope/dizziness Quality lightheadedness 03/21/2012 None near-syncope/dizziness Quality worsening 03/21/2012 episode of legs becoming weak , felt like going to pass out March 17 and memory loss Onset of Symptom 2+ years ago 03/21/2012 None memory loss Limitation on Activities is incapacitating 03/21/2012 None memory loss Triggers no known associated factors 03/21/2012 None memory loss Alleviating Factors rest 03/21/2012 None memory loss Pertinent Findings Denies ataxia 03/21/2012 None memory loss Pertinent Findings personality changes 03/21/2012 None hallucination Quality chronic 03/21/2012 None hallucination Quality constant 03/21/2012 None hallucination Quality olfactory 03/21/2012 None hallucination Quality visual 03/21/2012 None hallucination Quality auditory 03/21/2012 None hallucination Onset of Symptom 2+ years ago 03/21/2012 None hallucination Limitation on Activities moderately limits activities 03/21/2012 None hallucination Frequency of Episodes daily 03/21/2012 None hallucination Triggers no known associated factors 03/21/2012 None hallucination Alleviating Factors medication 03/21/2012 None hallucination Pertinent Findings delusions 03/21/2012 None hallucination Pertinent Findings disorders of thought 03/21/2012 None Advance Directives Advance Directives Present Encounters Encounter Performer Location Codes Date ([id number]) 42070 EST. 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 PATIENT, LEVEL IV Diagnosis: Mixed hyperlipidemia[ICD10: E78.2] Diagnosis: Dementia with Lewy bodies[ICD10: G31.83] Diagnosis: Major depressive disorder, recurrent, mild[ICD10: F33.0] Allie Mcneill MD [facility] CPT-4: 37089 12/21/2016 ([id number]) 80715 EST. PATIENT, LEVEL IV Diagnosis: Dementia with Lewy bodies[ICD10: G31.83] Diagnosis: Mixed hyperlipidemia[ICD10: E78.2] Diagnosis: Encounter for immunization[ICD10: Z23] Diagnosis: Major depressive disorder, recurrent, mild[ICD10: F33.0] Allie Mcneill MD, [facility] CPT-4: 51661 09/21/2016 ([id number]) 74467 EST. PATIENT, LEVEL III Diagnosis: Encounter for immunization[ICD10: Z23] Diagnosis: Dementia with Lewy bodies[ICD10: G31.83] Diagnosis: Major depressive disorder, recurrent, mild[ICD10: F33.0] Allie Mcneill MD, [facility] CPT-4: 55380 06/22/2016 ([id number] 17266 EST. PATIENT, LEVEL III Diagnosis: Mixed hyperlipidemia[ICD10: E78.2] Diagnosis: Dementia with Lewy bodies[ICD10: G31.83] Allie Mcneill MD [facility] CPT-4: 42112 03/23/2016 ([id number]) 59205 EST. PATIENT, LEVEL IV Diagnosis: Dementia with Lewy bodies[ICD10: G31.83] Diagnosis: Other hallucinations[ICD10: R44.2] Diagnosis: Mixed hyperlipidemia[ICD10: E78.2] Allie Mcneill MD [facility] CPT-4: 17790 12/16/2015 ([id number]) 90110 EST. PATIENT, LEVEL IV Diagnosis: Dementia with Lewy bodies[ICD10: G31.83] Diagnosis: Other hallucinations[ICD10: R44.2] Diagnosis: Mixed hyperlipidemia[ICD10: E78.2] Diagnosis: Encounter for immunization[ICD10: Z23] Allie Mcneill MD [facility] CPT-4: 58349 09/16/2015 ([id number]) 61369 EST. 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 PATIENT, LEVEL IV Diagnosis: HYPERLIPIDEMIA[ICD9: 272.4] Diagnosis: Dementia[ICD9: 294.20] Diagnosis: LEWY BODY DEMENTIA[ICD9: 331.82] Allie Mcneill MD, [facility] CPT-4: 26546 02/25/2015 ([id number]) 29694 EST. PATIENT, LEVEL IV Diagnosis: HYPERLIPIDEMIA[ICD9: 272.4] Diagnosis: Dementia[ICD9: 294.20] Diagnosis: LEWY BODY DEMENTIA[ICD9: 331.82] Allie Mcneill MD [facility] CPT-4: 49746 11/19/2014 ([id number]) 96671 EST. PATIENT, LEVEL IV Diagnosis: HYPERLIPIDEMIA[ICD9: 272.4] Diagnosis: LEWY BODY DEMENTIA[ICD9: 331.82] Allie Mcneill MD, [facility] CPT-4: 30059 08/13/2014 ([id number]) 20055 EST. PATIENT, LEVEL IV Diagnosis: LEWY BODY DEMENTIA[ICD9: 331.82] Diagnosis: Psychosis[ICD9: 298.9] Allie Mcneill MD, [facility] CPT-4: 55055 06/11/2014 ([id number]) 24567 EST. PATIENT, LEVEL III Diagnosis: Lewy body dementia with behavioral disturbance[ICD9: 331.82] Diagnosis: Ulcer of gingiva[ICD9: 523.8] Shari Mcneill MD, [facility] CPT-4: 79144 04/16/2014 ([id number]) 78326 EST. PATIENT, LEVEL IV Diagnosis: Shingles[ICD9: 053.9] Diagnosis: Oral aphthae[ICD9: 528.2] Diagnosis: Yeast infection of the skin[ICD9: 112.3] Allie Mcneill MD, [facility] CPT-4: 60136 03/12/2014 ([id number]) 11408 EST. PATIENT, LEVEL IV Diagnosis: DEMEN NOS 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[ICD9: 294.20] Diagnosis: LEWY BODY DEMENTIA[ICD9: 331.82] Diagnosis: Impacted cerumen of both ears[ICD9: 380.4] Diagnosis: Weight loss[ICD9: 783.21] Diagnosis: Shingles rash[ICD9: 053.9] Allie Mcneill MD, [facility] CPT- 4: 85085 02/26/2014 ([id number]) 71737 EST. PATIENT, LEVEL IV Diagnosis: SENILE DELUSION[ICD9: 290.20] Diagnosis: LEWY BODY DEMENTIA[ICD9: 331.82] Diagnosis: HALLUCINATIONS[ICD9: 780.1] Diagnosis: PSYCHOSIS[ICD9: 298.9] Allie Mcneill MD, [facility] CPT-4: 53343 11/27/2013 ([id number]) 95736 EST. PATIENT, LEVEL IV Diagnosis: LEWY BODY DEMENTIA[ICD9: 331.82] Diagnosis: HALLUCINATIONS[ICD9: 780.1] Diagnosis: PSYCHOSIS[ICD9: 298.9] Allie Mcneill MD, [facility] CPT-4: 45119 10/16/2013 ([id number]) 87053 EST. PATIENT, LEVEL III Diagnosis: LEWY BODY DEMENTIA[ICD9: 331.82] Diagnosis: HALLUCINATIONS[ICD9: 780.1] Allie Mcneill MD, [facility] CPT- 4: 32826 07/10/2013 ([id number]) 78838 EST. PATIENT, LEVEL IV Diagnosis: LEWY BODY DEMENTIA[ICD9: 331.82] Diagnosis: HALLUCINATIONS[ICD9: 780.1] Diagnosis: Dehydration[ICD9: 276.51] Diagnosis: Dementia[ICD9: 294.20] Allie Mcneill MD, [facility] CPT-4: 41288 01/06/2013 27966 EST. PATIENT, LEVEL III Diagnosis: Candidiasis of breast[ICD9: 112.2] Diagnosis: Seborrheic keratosis[ICD9: 702.19] Diagnosis: Dry skin[ICD9: 782.9] Shari Mcneill MD, [facility] CPT-4: 34434 08/08/2012 ([id number]) 71504 EST. PATIENT, LEVEL IV Diagnosis: LEWY BODY DEMENTIA[ICD9: 331.82] Diagnosis: HALLUCINATIONS[ICD9: 780.1] Allie Mcneill MD, [facility] CPT- 4: 07282 05/23/2012 ([id number]) 47116 EST. PATIENT, LEVEL IV Diagnosis: HALLUCINATIONS[ICD9: 780.1] Diagnosis: LEWY BODY DEMENTIA[ICD9: 331.82] Allie Mcneill MD [facility] CPT-4: 02840 04/04/2012 ([id number]) 66904 EST. PATIENT, LEVEL IV Diagnosis: Lewy body dementia with behavioral disturbance[ICD9: 331.82] Diagnosis: Hallucinations[ICD9: 780.1] Diagnosis: INSOMNIA IN OTHER DIS[ICD9: 327.01] Allie Mcneill MD, [facility] CPT-4: 38701 03/21/2012 Plan of Care Planned Activity Notes Codes Status Date Visit Plan: Hypertension - well controlled - continue with current medications, continue with no added salt diet. Pt has been encouraged to exercise daily. The pt has been advised to call the office if there are any acute concerns about change in blood pressure readings at home. Hyperlipidemia - pt has been counseled about appropriate diet, exercise, and need for low fat food choices. I have discussed the need for the patient to take medications as prescribed. If the patient has negative side effects from the medication, they are to CALL the office and not abruptly discontinue the medication without discussion with a practitioner in the office. We will check labs in 3-6 months for follow up on the patient's chronic medical problem and to assure normal liver response to medications. Depression and Mood disorder - stable - continue with current management. 11/22/2017 Patient Education: Patient Medication Summary Completed 11/22/2017 App[facility]ment[facility] [phone] [id number] (15 min) Moderate 11/15/2017 Visit Plan: Hypertension - well controlled - continue with current medications, continue with no added salt diet. Pt has been encouraged to exercise daily. The pt has been advised to call the office if there are any acute concerns about change in blood pressure readings at home. Psychosis and depression -- continue with depakote, monitor depakote level - repeat lab in September 2017 and q 4 months 08/16/2017 Appointment: [facility]el[facility] [phone] [facility] (15 min) Moderate 08/16/2017 Patient Education: Patient Medication Summary Completed 08/16/2017 Visit Plan: Hypertension - well controlled - continue with current medications, continue with no added salt diet. Pt has been encouraged to exercise daily. The pt has been advised to call the office if there are any acute concerns about change in blood pressure readings at home. Psychosis -- continue with depakote, monitor depakote level, symptoms. 05/17/2017 Appointment: [facility] Mc[facility]ill [facility]Ptel[facility] [phone] [id number] (15 min) Moderate 05/17/2017 Patient Education: Patient Medication Summary Completed 05/17/2017 Visit Plan: Psychosis - increase Risperdal to 0.5mg bid Hypertension - well controlled - continue with current medications, continue with no added salt diet. Pt has been encouraged to exercise daily. The pt has been advised to call the office if there are any acute concerns about change in blood pressure readings at home. 04/25/2017 Visit Plan: Psychosis - increase Risperdal to 0.5mg bid Hypertension - well controlled - continue with current medications, continue with no added salt diet. Pt has been encouraged to exercise daily. The pt has been advised to call the office if there are any acute concerns about change in blood pressure readings at home. 04/25/2017 Appointment: Allie Mcneill WPtel: [phone] [id number] (15 min) Moderate 04/25/2017 Patient Education: Patient Medication Summary Completed 04/25/2017 Appointment: Allie Mcneill WPtel: [phone] [id number] (15 min) Moderate 04/19/2017 Visit Plan: Dementia with Lewy body - pt doing well, per her daughter her mood is stable, she has no current hallucinations either auditory or visual. Chronic Depression and anxiety - the pt has symptoms of chronic anxiety and depression - will stop the Trazodone and start on nuedexta - continue with plans for Trazodone taper. 03/22/2017 Appointment: [facility] Mc[facility]ill [facility]Ptel[facility] [phone] [facility] (15 min) Moderate 03/22/2017 Patient Education: Patient Medication Summary Completed 03/22/2017 Visit Plan: Hyperlipidemia - pt has been counseled about appropriate diet, exercise, and need for low fat food choices. I have discussed the need for the patient to take medications as prescribed. If the patient has negative side effects from the medication, they are to CALL the office and not abruptly discontinue the medication without discussion with a practitioner in the office. We will check labs in 3-6 months for follow up on the patient's chronic medical problem and to assure normal liver response to medications. 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 Chronic Depression and anxiety - the pt has symptoms of chronic anxiety and depression that have been fairly well controlled since the last office visit. The pt has expected periods of exacerbation with abatement of the symptoms with change in situational exposure. No change in current medications. 12/21/2016 Visit Plan: Hyperlipidemia - pt has been counseled about appropriate diet, exercise, and need for low fat food choices. I have discussed the need for the patient to take medications as prescribed. If the patient has negative side effects from the medication, they are to CALL the office and not abruptly discontinue the medication without discussion with a practitioner in the office. We will check labs in 3-6 months for follow up on the patient's chronic medical problem and to assure normal liver response to medications. 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 Chronic Depression and anxiety - the pt has symptoms of chronic anxiety and depression that have been fairly well controlled since the last office visit. The pt has expected periods of exacerbation with abatement of the symptoms with change in situational exposure. No change in current medications. 12/21/2016 Appointment: All[facility] Mcneill WPtel[facility] [phone] [id number] (15 min) Moderate 12/21/2016 Patient Education: Patient Medication Summary Completed 12/21/2016 Visit Plan: Hyperlipidemia - pt has been counseled about appropriate diet, exercise, and need for low fat food choices. I have discussed the need for the patient to take medications as prescribed. If the patient has negative side effects from the medication, they are to CALL the office and not abruptly discontinue the medication without discussion with a practitioner in the office. We will check labs in 3-6 months for follow up on the patient's chronic medical problem and to assure normal liver response to medications. Lewy body Dementia - Pt with progressive pattern. I have discussed with pt and family the prognosis of this disease state and the need for the family to anticipate further decline with behavior changes. Continue with current plan of treatment. Chronic Depression and anxiety - the pt has symptoms of chronic anxiety and depression that have been fairly well controlled since the last office visit. The pt has expected periods of exacerbation with abatement of the symptoms with change in situational exposure. No change in current medications. 09/21/2016 Appointment: [facility] Mc[facility]ill [facility]Ptel[facility] [phone] [facility] (15 min) Moderate 09/21/2016 Patient Education: Patient Medication Summary Completed 09/21/2016 Patient Education: Obesity Completed 09/21/2016 Visit Plan: Lewy body Dementia - Pt with progressive pattern. I have discussed with pt and family the prognosis of this disease state and the need for the family to anticipate further decline with behavior changes. Continue with current plan of treatment. Chronic Depression and anxiety - the pt has symptoms of chronic anxiety and depression that have been fairly well controlled since the last office visit. The pt has expected periods of exacerbation with abatement of the symptoms with change in situational exposure. No change in current medications. 06/22/2016 Appointment: All[facility] Mcneill WPtel[facility] [phone] [id number] (15 min) Moderate 06/22/2016 Patient Education: Patient Medication Summary Completed 06/22/2016 Visit Plan: Hyperlipidemia - pt has been counseled about appropriate diet, exercise, and need for low fat food choices. I have discussed the need for the patient to take medications as prescribed. If the patient has negative side effects from the medication, they are to CALL the office and not abruptly discontinue the medication without discussion with a practitioner in the office. We will check labs in 3-6 months for follow up on the patient's chronic medical problem and to assure normal liver response to medications. Lewy Body Dementia - continue with supportive care and use of Risperdal for her underlying psychosis. 03/23/2016 Appointment: Allie Mcneill WPtel: [facility] (15 min) Moderate 03/23/2016 Patient Education: Patient Medication Summary Completed 03/23/2016 Visit Plan: Lewy Body's Dementia - Pt with slowly progressive pattern. I have discussed with pt and family the prognosis of this disease state and the need for the family to anticipate further decline with behavior changes. Continue with current plan of treatment. Hyperlipidemia - pt has been counseled about appropriate diet, exercise, and need for low fat food choices. I have discussed the need for the patient to take medications as prescribed. If the patient has negative side effects from the medication, they are to CALL the office and not abruptly discontinue the medication without discussion with a practitioner in the office. We will check labs in 3-6 months for follow up on the patient's chronic medical problem. 12/16/2015 Appointment: All[facility] Mcneill [facility]el[facility] [phone] [facility] (15 min) Moderate 12/16/2015 Patient Education: Patient Medication Summary Completed 12/16/2015 Patient Education: Obesity Completed 12/16/2015 Visit Plan: Lewy Body's Dementia - Pt with slowly progressive pattern. I have discussed with pt and family the prognosis of this disease state and the need for the family to anticipate further decline with behavior changes. Continue with current plan of treatment. Hyperlipidemia - pt has been counseled about appropriate diet, exercise, and need for low fat food choices. I have discussed the need for the patient to take medications as prescribed. If the patient has negative side effects from the medication, they are to CALL the office and not abruptly discontinue the medication without discussion with a practitioner in the office. We will check labs in 3-6 months for follow up on the patient's chronic medical problem and to assure normal liver response to medications 09/16/2015 Appointment: All[facility] Mcneill [facility]el[facility] [phone] [facility] (15 min) Moderate 09/16/2015 Patient Education: Patient Medication Summary Completed 09/16/2015 Visit Plan: Hyperlipidemia - pt has been counseled about appropriate diet, exercise, and need for low fat food choices. I have discussed the need for the patient to take medications as prescribed. If the patient has negative side effects from the medication, they are to CALL the office and not abruptly discontinue the medication without discussion with a practitioner in the office. We will check labs in 3-6 months for follow up on the patient's chronic medical problem and to assure normal liver response to medications. Lewy Body Dementia - continue with supportive care and use of Risperdal for her underlying psychosis. 07/01/2015 Appointment: Allie Mcneill [facility]Ptel[facility] [phone] [facility] Follow up 07/01/2015 Patient Education: Patient Medication Summary Completed 07/01/2015 Visit Plan: Hyperlipidemia - pt has been counseled about appropriate diet, exercise, and need for low fat food choices. I have discussed the need for the patient to take medications as prescribed. If the patient has negative side effects from the medication, they are to CALL the office and not abruptly discontinue the medication without discussion with a practitioner in the office. We will check labs in 3-6 months for follow up on the patient's chronic medical problem and to assure normal liver response to medications. Lewy Body Dementia - pt to continue with current medication and supportive care. Pt had been started on Marinol due to extensive weight loss - I have recommended that we decrease Marinol to bid x 1 month then am x 1 month then stop the Marinol as Eladia has had resolution of her weight loss. Seasonal allergies with nasal drainage -start casi 02/25/2015 Patient Education: Patient Medication Summary Completed 02/25/2015 Visit Plan: Hyperlipidemia - pt has been counseled about appropriate diet, exercise, and need for low fat food choices. I have discussed the need for the patient to take medications as prescribed. If the patient has negative side effects from the medication, they are to CALL the office and not abruptly discontinue the medication without discussion with a practitioner in the office. We will check labs in 3-6 months for follow up on the patient's chronic medical problem and to assure normal liver response to medications. Lewy Body Dementia - pt to continue with current medication and supportive care. Pt had been started on Marinol due to extensive weight loss - I have recommended that we decrease Marinol to bid x 1 month then am x 1 month then stop the Marinol as Eladia has had resolution of her weight loss. Seasonal allergies with nasal drainage -start casi 11/19/2014 Appointment: Allie Mcneill WPtel: [facility] [place] Follow up 11/19/2014 Patient Education: Patient Medication Summary Completed 11/19/2014 Appointment: Allie Mcneill WPtel: [facility] [place] Follow up 11/12/2014 Appointment: Allie Mcneill WPtel: [address] [place] [id number] [place] Follow up 09/10/2014 Visit Plan: Hyperlipidemia - pt has been counseled about appropriate diet, exercise, and need for low fat food choices. I have discussed the need for the patient to take medications as prescribed. If the patient has negative side effects from the medication, they are to CALL the office and not abruptly discontinue the medication without discussion with a practitioner in the office. 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 The patient is on medication which appears to be controlling the worst of the symptoms. I have not recommended a change to the regimen at this time, but will continue to closely monitor the medications for effectiveness. 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 The patient is on medication which appears to be controlling the worst of the symptoms. I have not recommended a change to the regimen at this time, but will continue to closely monitor the medications for effectiveness. Psychosis - stable- no change in risperdal dose at this time. 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 04/16/2014 Appointment: Other 04/16/2014 Patient Education: Patient Medication Summary Completed 04/16/2014 Visit Plan: Shingles - healing well. 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 Yeast infection under breast tissue - recommended pt to have nystatin treatment under breasts x 10 days. 03/12/2014 Appointment: Allie Mcneill WPtel: [phone] [facility] [place] Follow up 03/12/2014 Patient Education: Patient Medication Summary Completed 03/12/2014 Visit Plan: Lewy Body Dementia - pt with progressive symptoms, psychosis, confusion, combativeness - pt is to have adjustment of medication as indicated, will monitor weight loss, push protein, snacks, and closely follow weight. Cerumen removed. Shingles - Herpes Zoster - acute in onset - pt started on acyclovir and instructed to call if symptoms worsen or if the pt is concerned about the symptoms. Pt has been advised to avoid contact with persons who may be , or infants, or immunocompromised individuals. Pt has been instructed that shingles will continue to break out and eventually scab over a two week period, until all of the vesicles are scabbed, the pt is to be considered contagious. 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 The patient is on medication which appears to be controlling the worst of the symptoms. I have not recommended a change to the regimen at this time, but will continue to closely monitor the medications for effecitveness. iNCREASE OF RISPERDAL - WILL DO A SLOW INCREASE OF MEDICATION FROM 0.5MG TID TO 1MG TID, FAMILY AWARE OF POTENTIAL SIDE-EFFECTS, AND AGREE TO USE OF MEDICAITON TO HELP AUGMENT PATIENT' S COMFORT AT THE PRISON. 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 The patient is on medication which appears to be controlling the worst of the symptoms. I have not recommended a change to the regimen at this time, but will continue to closely monitor the medications for effecitveness. RX for ativan - facility to alert the office if symptoms do not improve. 10/16/2013 Appointment: All[facility] Mcneill [facility]Ptel[facility] [phone] [facility] Follow up 10/16/2013 Patient Education: Patient Medication Summary Completed 10/16/2013 Appointment: Shari Parada WPtel: [phone] [phone] [place] Lab Draw 07/31/2013 Patient Education: Patient Medication Summary Completed 07/31/2013 Appointment: Allie Mcneill WPtel: [phone] [facility] Lab Draw 07/30/2013 Visit Plan: Lewy body dementia - symptoms improved on higher dose of risperdol - continue to monitor symptoms - family to call if hallucinations worsen again. 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 The patient is on medication which appears to be controlling the worst of the symptoms. I have not recommended a change to the regimen at this time, but will continue to closely monitor the medications for effecitveness. 06/12/2013 Appointment: Allie Mcneill WPtel: [phone] [facility] Follow up 06/12/2013 Patient Education: Patient Medication Summary Completed 06/12/2013 Visit Plan: Lewy Body Dementia - Pt with slowly progressive pattern. I have discussed with pt and family the prognosis of this disease state and the need for the family to anticipate further decline with behavior changes. Continue with current plan of treatment. Hyperlipidemia - pt has been counseled about appropriate diet, exercise, and need for low fat food choices. I have discussed the need for the patient to take medications as prescribed. If the patient has negative side effects from the medication, they are to CALL the office and not abruptly discontinue the medication without discussion with a practicioner in the office. We will check labs in 3-6 months for follow up on the patient's chronic medical problem and to assure normal liver response to medications. 02/13/2013 Appointment: Allie Mcneill WPtel: [facility] Follow up 02/13/2013 Patient Education: Patient Medication Summary Completed 02/13/2013 Visit Plan: Lewy Body Dementia - Pt with slowly progressive pattern. I have discussed with pt and family the prognosis of this disease state and the need for the family to anticipate further decline with behavior changes. Continue with current plan of treatment. Dehydration - pt to increase fluid consumption - pt to have labs and we will make further recommendations from her labs. Dysuria - check UA. 01/06/2013 Appointment: Allie Mcneill WPtel: [facility] Follow up 01/06/2013 Patient Education: Patient Medication Summary Completed 01/06/2013 Visit Plan: Lewy Body Dementia - Pt with slowly progressive pattern. I have discussed with pt and family the prognosis of this disease state and the need for the family to anticipate further decline with behavior changes. Continue with current plan of treatment. Yeast infection of skin - pt to use vinegar water wash to skin and nystatin topical cream and once healed, pt is to use preventative with Ammens powder. Dysuria - check UA. 09/19/2012 Appointment: Allie Mcneill WPtel: [phone] [facility] Established Patient Preventative visit 09/19/2012 Patient Education: Patient Medication Summary Completed 09/19/2012 Visit Plan: Candidiasis of breasts-discussed natural and expected course of this diagnosis and to alert me if sympotms do not follow expected course, or if any worse. Keep areas clean and dry. RX sent to patient' s pharmacy and instructed on use. 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 The patient is on medication which appears to be controlling the worst of the symptoms. I have not recommended a change to the regimen at this time, but will continue to closely monitor the medications for effecitveness. The pt's symptoms have improved with the use of the risperdal and with the patient's family following the directions of less frequent evening or later in the afternoon disturbances of her rest. 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 The patient is on medication which appears to be controlling the worst of the symptoms. I have not recommended a change to the regimen at this time, but will continue to closely monitor the medications for effecitveness. Pt has had significant symptomatic improvement in her Hallucinations and behaviors on the risperdal, no change in the current dosing regimen. 04/04/2012 Appointment: Allie Mcneill WPtel: [phone] [facility] Follow up 04/04/2012 Patient Education: Patient Medication Summary Completed 04/04/2012 Visit Plan: Lewy Body Dementia - pt has been having hallucinations, auditory, visual, gustatory, she was recently in the hospital, then was transfered to a geriatric psychiatric facility in [place] for inpatient psych treatment. She was discharged on Risperdal and namenda. I have recommended holding the namenda for a few weeks, increase the risperdal to the following regimen: risperdal 0.5mg in AM, 0.25mg at noon, 0.5mg right before bed , and an extra 0.25mg in the middle of the night if needed for night-time episodes. I have advised the family that the expectation is that she will continue to show decline, she may have periods of stability, but they will be fewer and fewer over the next few months to years. I have advised AGAINST leaving her home alone, I have also advised against her traveling from home to home with her family and staying overnight, this will only increase her confusion. It is okay to take her out for excursions during the day, but to stay overnight, should not be a frequent occurence. Pt had stenosis of carotid vessels, and she was started on lipitor and plavix in the hospital. I have advised a medic-alert bracelet or necklace to identify her family and her disease process and contact information in case she wanders. Her family is to alert the local fire and police departments in case of a wandering event. I have also advised for the family to install an alarm system with door ringers when the home doors are opened. 03/21/2012 Appointment: Allie Mcneill WPtel: [phone] [facility] New Patient 03/21/2012 Patient Education: Patient Medication Summary Completed 03/21/2012 Instructions Comment . 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 The patient is on medication which appears to be controlling the worst of the symptoms. I have not recommended a change to the regimen at this time, but will continue to closely monitor the medications for effecitveness. Pt has had significant symptomatic improvement in her Hallucinations and behaviors on the risperdal, no change in the current dosing regimen. . 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 The patient is on medication which appears to be controlling the worst of the symptoms. I have not recommended a change to the regimen at this time, but will continue to closely monitor the medications for effectiveness. Psychosis - stable- no change in risperdal dose at this time. . 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 Chronic Depression and anxiety - the pt has symptoms of chronic anxiety and depression - will stop the Trazodone and start on nuedexta - continue with plans for Trazodone taper. . Hyperlipidemia - pt has been counseled about appropriate diet, exercise, and need for low fat food choices. I have discussed the need for the patient to take medications as prescribed. If the patient has negative side effects from the medication, they are to CALL the office and not abruptly discontinue the medication without discussion with a practitioner in the office. We will check labs in 3-6 months for follow up on the patient's chronic medical problem and to assure normal liver response to medications. Lewy Body Dementia - pt to continue with current medication and supportive care. Pt had been started on Marinol due to extensive weight loss - I have recommended that we decrease Marinol to bid x 1 month then am x 1 month then stop the Marinol as Eladia has had resolution of her weight loss. Seasonal allergies with nasal drainage -start casi . Hyperlipidemia - pt has been counseled about appropriate diet, exercise, and need for low fat food choices. I have discussed the need for the patient to take medications as prescribed. If the patient has negative side effects from the medication, they are to CALL the office and not abruptly discontinue the medication without discussion with a practitioner in the office. We will check labs in 3-6 months for follow up on the patient's chronic medical problem and to assure normal liver response to medications. Lewy Body Dementia - continue with supportive care and use of Risperdal for her underlying psychosis. . 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 The patient is on medication which appears to be controlling the worst of the symptoms. I have not recommended a change to the regimen at this time, but will continue to closely monitor the medications for effecitveness. iNCREASE OF RISPERDAL - WILL DO A SLOW INCREASE OF MEDICATION FROM 0.5MG TID TO 1MG TID, FAMILY AWARE OF POTENTIAL SIDE-EFFECTS, AND AGREE TO USE OF MEDICAITON TO HELP AUGMENT PATIENT'S COMFORT AT THE PRISON. . Hypertension - well controlled - continue with current medications, continue with no added salt diet. Pt has been encouraged to exercise daily. The pt has been advised to call the office if there are any acute concerns about change in blood pressure readings at home. Psychosis and depression -- continue with depakote, monitor depakote level - repeat lab in September 2017 and q 4 months . Lewy Body's Dementia - Pt with slowly progressive pattern. I have discussed with pt and family the prognosis of this disease state and the need for the family to anticipate further decline with behavior changes. Continue with current plan of treatment. Hyperlipidemia - pt has been counseled about appropriate diet, exercise, and need for low fat food choices. I have discussed the need for the patient to take medications as prescribed. If the patient has negative side effects from the medication, they are to CALL the office and not abruptly discontinue the medication without discussion with a practitioner in the office. We will check labs in 3-6 months for follow up on the patient's chronic medical problem and to assure normal liver response to medications . Hypertension - well controlled - continue with current medications, continue with no added salt diet. Pt has been encouraged to exercise daily. The pt has been advised to call the office if there are any acute concerns about change in blood pressure readings at home. Hyperlipidemia - pt has been counseled about appropriate diet, exercise, and need for low fat food choices. I have discussed the need for the patient to take medications as prescribed. If the patient has negative side effects from the medication, they are to CALL the office and not abruptly discontinue the medication without discussion with a practitioner in the office. We will check labs in 3-6 months for follow up on the patient's chronic medical problem and to assure normal liver response to medications. Depression and Mood disorder - stable - continue with current management. . Psychosis - increase Risperdal to 0.5mg bid Hypertension - well controlled - continue with current medications, continue with no added salt diet. Pt has been encouraged to exercise daily. The pt has been advised to call the office if there are any acute concerns about change in blood pressure readings at home. . Psychosis - increase Risperdal to 0.5mg bid Hypertension - well controlled - continue with current medications, continue with no added salt diet. Pt has been encouraged to exercise daily. The pt has been advised to call the office if there are any acute concerns about change in blood pressure readings at home. . Hyperlipidemia - pt has been counseled about appropriate diet, exercise, and need for low fat food choices. I have discussed the need for the patient to take medications as prescribed. If the patient has negative side effects from the medication, they are to CALL the office and not abruptly discontinue the medication without discussion with a practitioner in the office. We will check labs in 3-6 months for follow up on the patient's chronic medical problem and to assure normal liver response to medications. Lewy Body Dementia - pt to continue with current medication and supportive care. Pt had been started on Marinol due to extensive weight loss - I have recommended that we decrease Marinol to bid x 1 month then am x 1 month then stop the Marinol as [place] has had resolution of her weight loss. Seasonal allergies with nasal drainage -start casi Shingles - healing well. 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 Yeast infection under breast tissue - recommended pt to have nystatin treatment under breasts x 10 days.. Shingles - healing well. 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 Yeast infection under breast tissue - recommended pt to have nystatin treatment under breasts x 10 days. . Hyperlipidemia - pt has been counseled about appropriate diet, exercise, and need for low fat food choices. I have discussed the need for the patient to take medications as prescribed. If the patient has negative side effects from the medication, they are to CALL the office and not abruptly discontinue the medication without discussion with a practitioner in the office. We will check labs in 3-6 months for follow up on the patient's chronic medical problem and to assure normal liver response to medications. Lewy body Dementia - Pt with progressive pattern. I have discussed with pt and family the prognosis of this disease state and the need for the family to anticipate further decline with behavior changes. Continue with current plan of treatment. Chronic Depression and anxiety - the pt has symptoms of chronic anxiety and depression that have been fairly well controlled since the last office visit. The pt has expected periods of exacerbation with abatement of the symptoms with change in situational exposure. No change in current medications. . Lewy body dementia - symptoms improved on higher dose of risperdol - continue to monitor symptoms - family to call if hallucinations worsen again. . Hyperlipidemia - pt has been counseled about appropriate diet, exercise, and need for low fat food choices. I have discussed the need for the patient to take medications as prescribed. If the patient has negative side effects from the medication, they are to CALL the office and not abruptly discontinue the medication without discussion with a practitioner in the office. We will check labs in 3-6 months for follow up on the patient's chronic medical problem and to assure normal liver response to medications. 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 Chronic Depression and anxiety - the pt has symptoms of chronic anxiety and depression that have been fairly well controlled since the last office visit. The pt has expected periods of exacerbation with abatement of the symptoms with change in situational exposure. No change in current medications. . Hyperlipidemia - pt has been counseled about appropriate diet, exercise, and need for low fat food choices. I have discussed the need for the patient to take medications as prescribed. If the patient has negative side effects from the medication, they are to CALL the office and not abruptly discontinue the medication without discussion with a practitioner in the office. We will check labs in 3-6 months for follow up on the patient's chronic medical problem and to assure normal liver response to medications. 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 Chronic Depression and anxiety - the pt has symptoms of chronic anxiety and depression that have been fairly well controlled since the last office visit. The pt has expected periods of exacerbation with abatement of the symptoms with change in situational exposure. No change in current medications. . 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 I have discussed with pt and family the prognosis of this disease state and the need for the family to anticipate further decline with behavior changes. Continue with current plan of treatment. Dehydration - pt to increase fluid consumption - pt to have labs and we will make further recommendations from her labs. Dysuria - check UA. . Candidiasis of breasts-discussed natural and expected course of this diagnosis and to alert me if sympotms do not follow expected course, or if any worse. Keep areas clean and dry. RX sent to patient's pharmacy and instructed on use. Seborrheic nibdesmrc-enwlqvy-dmlnwtxps eucerin cream as needed to back Dry ygqq-pwrg-ngtadckvq moisturizer such as eucerin to face-call if worsens REMOVE UPPER AND LOWER DENTURES FOR THE NEXT WEEK. THE UPPER DENTURES ARE CREATING AN ULCER/IRRITATION ON THE LOWER RIGHT GUMS. MAY PUT UPPER AND LOWER DENTURES BACK IN WHEN AREA IS HEALED . Ulcer of gums-remove dentures x 1 week and monitor symtpoms Depression-dementia with behaviors-evening dose of risperdal restarted 2 days ago-monitor symptoms-and call if symptoms continue to be uncontrolled.Patient's daughter verbalized understanding of plan. . Lewy Body Dementia - pt has been having hallucinations, auditory, visual, gustatory, she was recently in the hospital, then was transfered to a geriatric psychiatric facility in [place] for inpatient psych treatment. She was discharged on Risperdal and namenda. I have recommended holding the namenda for a few weeks, increase the risperdal to the following regimen: risperdal 0.5mg in AM, 0.25mg at noon, 0.5mg right before bed, and an extra 0.25mg in the middle of the night if needed for night-time episodes. I have advised the family that the expectation is that she will continue to show decline, she may have periods of stability, but they will be fewer and fewer over the next few months to years. I have advised AGAINST leaving her home alone, I have also advised against her traveling from home to home with her family and staying overnight, this will only increase her confusion. It is okay to take her out for excursions during the day, but to stay overnight, should not be a frequent occurence. Pt had stenosis of carotid vessels, and she was started on lipitor and plavix in the hospital. I have advised a medic-alert bracelet or necklace to identify her family and her disease process and contact information in case she wanders. Her family is to alert the local fire and police departments in case of a wandering event. I have also advised for the family to install an alarm system with door ringers when the home doors are opened. . Lewy Body's Dementia - Pt with slowly progressive pattern. I have discussed with pt and family the prognosis of this disease state and the need for the family to anticipate further decline with behavior changes. Continue with current plan of treatment. Hyperlipidemia - pt has been counseled about appropriate diet, exercise, and need for low fat food choices. I have discussed the need for the patient to take medications as prescribed. If the patient has negative side effects from the medication, they are to CALL the office and not abruptly discontinue the medication without discussion with a practitioner in the office. We will check labs in 3-6 months for follow up on the patient's chronic medical problem. . 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 I have discussed with pt and family the prognosis of this disease state and the need for the family to anticipate further decline with behavior changes. Continue with current plan of treatment. Yeast infection of skin - pt to use vinegar water wash to skin and nystatin topical cream and once healed, pt is to use preventative with Ammens powder. Dysuria - check UA. . Hyperlipidemia - pt has been counseled about appropriate diet, exercise, and need for low fat food choices. I have discussed the need for the patient to take medications as prescribed. If the patient has negative side effects from the medication, they are to CALL the office and not abruptly discontinue the medication without discussion with a practitioner in the office. We will check labs in 3-6 months for follow up on the patient's chronic medical problem and to assure normal liver response to medications. Lewy Body Dementia - continue with supportive care and use of Risperdal for her underlying psychosis. . Hyperlipidemia - pt has been counseled about appropriate diet, exercise, and need for low fat food choices. I have discussed the need for the patient to take medications as prescribed. If the patient has negative side effects from the medication, they are to CALL the office and not abruptly discontinue the medication without discussion with a practitioner in the office. 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 The patient is on medication which appears to be controlling the worst of the symptoms. I have not recommended a change to the regimen at this time, but will continue to closely monitor the medications for effectiveness. . Lewy Body Dementia - pt with progressive symptoms, psychosis, confusion, combativeness - pt is to have adjustment of medication as indicated, will monitor weight loss, push protein, snacks, and closely follow weight. Cerumen removed. Shingles - Herpes Zoster - acute in onset - pt started on acyclovir and instructed to call if symptoms worsen or if the pt is concerned about the symptoms. Pt has been advised to avoid contact with persons who may be , or infants, or immunocompromised individuals. Pt has been instructed that shingles will continue to break out and eventually scab over a two week period, until all of the vesicles are scabbed, the pt is to be considered contagious. . 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 I have discussed with pt and family the prognosis of this disease state and the need for the family to anticipate further decline with behavior changes. Continue with current plan of treatment. Hyperlipidemia - pt has been counseled about appropriate diet, exercise, and need for low fat food choices. I have discussed the need for the patient to take medications as prescribed. If the patient has negative side effects from the medication, they are to CALL the office and not abruptly discontinue the medication without discussion with a practicioner in the office. We will check labs in 3-6 months for follow up on the patient's chronic medical problem and to assure normal liver response to medications. . 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 The patient is on medication which appears to be controlling the worst of the symptoms. I have not recommended a change to the regimen at this time, but will continue to closely monitor the medications for effecitveness. RX for ativan - facility to alert the office if symptoms do not improve. . Hypertension - well controlled - continue with current medications, continue with no added salt diet. Pt has been encouraged to exercise daily. The pt has been advised to call the office if there are any acute concerns about change in blood pressure readings at home. Psychosis -- continue with depakote, monitor depakote level, symptoms. . 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 The patient is on medication which appears to be controlling the worst of the symptoms. I have not recommended a change to the regimen at this time, but will continue to closely monitor the medications for effecitveness. . Lewy body Dementia - Pt with progressive pattern. I have discussed with pt and family the prognosis of this disease state and the need for the family to anticipate further decline with behavior changes. Continue with current plan of treatment. Chronic Depression and anxiety - the pt has symptoms of chronic anxiety and depression that have been fairly well controlled since the last office visit. The pt has expected periods of exacerbation with abatement of the symptoms with change in situational exposure. No change in current medications. . 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 The patient is on medication which appears to be controlling the worst of the symptoms. I have not recommended a change to the regimen at this time, but will continue to closely monitor the medications for effecitveness. The pt's symptoms have improved with the use of the risperdal and with the patient's family following the directions of less frequent evening or later in the afternoon disturbances of her rest.
--- OUTSIDE RECORDS SUMMARY | 2018-01-02 19:36 | XMS REPORT | CCD ---
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 Name Role Phone PP Unavailable CCM Unavailable Summary Purpose Interface Exchange Insurance Providers Payer name Policy type / Coverage type Covered constitution party ID Effective Begin Date Effective End Date [employer] CLAIMS Commercial Insurance [id number] Unknown Family history Daughter Diagnosis Age At [...] Codes Description Effective Dates Living arrangements Unknown Senior Care [facility] 12/21/2016 Marital status Unknown 03/21/2012 Number of children Unknown 5 03/21/[address]: 297362223 Nonsmoker 03/21/[address]: 386394916 Never drinks alcohol 03/21/2012 Allergies, Adverse Reactions, Alerts Allergies, Adverse Reactions, Alerts data not found Past Medical History Illness Codes Condition Status Onset Date Resolved Date Essential (primary) hypertension ICD-9: 401.1 ICD-10: I10 Active 04/25/2017 Unknown Major depressive disorder, recurrent, 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 ICD-10: F33.0 Active 06/21/2016 Unknown 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 ICD-10: F28 Active 04/25/2017 Unknown Dementia with Lewy bodies ICD-9: 331.82 ICD-10: G31.83 Active 04/16/2014 Unknown Mixed hyperlipidemia ICD-9: 272.2 ICD-10: E78.2 Active 09/21/2016 Unknown Pseudobulbar affect ICD-9: 310.81 ICD-10: F48.2 [...] hypertension ICD-9: 401.1 ICD-10: I10 04/25/2017 Active Major depressive disorder, recurrent, 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 ICD-10: F33.0 06/21/2016 Active 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 ICD-10: F28 04/25/2017 Active Dementia with Lewy bodies ICD-9: 331.82 ICD-10: G31.83 04/16/2014 Active Mixed hyperlipidemia ICD-9: 272.2 ICD-10: E78.2 09/21/2016 Active Pseudobulbar affect ICD-9: 310.81 ICD-10: F48.2 [...] Start Date Stop Date Status Fill Instructions Exelon Patch 9.5 mg/24 hr transdermal RxNorm: 041218 APPLY ONE (1) PATCH ONCE DAILY. 11/12/2017 No Stop Date Active losartan 50 mg tablet RxNorm: 124161 TAKE 1 TABLET BY MOUTH EVERY DAY 11/05/2017 06/02/2018 Active Generic For:*COZAAR 50MG 11/02/2017 2:22:04 PM Exelon Patch 9.5 mg/24 hr transdermal RxNorm: 058523 APPLY ONE (1) PATCH ONCE DAILY. 10/19/2017 11/11/2017 Inactive Depakote 500 mg tablet,delayed release RxNorm: 7628220 1 Tablet(s) PO daily 10/15/2017 10/09/2018 Active Protonix 20 mg tablet,delayed release RxNorm: 760151 TAKE 1 TABLET BY MOUTH DAILY 08/06/2017 03/03/2018 Active Generic For:*PROTONIX 20MG 08/06/2017 2:35:53 PM Ativan 0.5 mg tablet RxNorm: 731584 1/2 Tablet(s) PO Q6 PRN as needed 1/2 po q 2 pm 08/02/2017 09/30/2017 Inactive Depakote 500 mg tablet,delayed release RxNorm: 8352343 1 Tablet(s) PO daily 06/22/2017 10/14/2017 Inactive Exelon Patch 9.5 mg/24 hr transdermal RxNorm: 876019 APPLY ONE (1) PATCH ONCE DAILY. 05/14/2017 10/10/2017 Inactive Protonix 20 mg tablet,delayed release RxNorm: 482259 1 Tablet(s) PO daily 05/08/2017 08/05/2017 Inactive Risperdal 0.25 mg tablet RxNorm: 460109 Tablet(s) UD .25 in am and .5 in hs and .25 prn for psychosis/hallucinations 04/26/2017 05/16/2017 Inactive Nuedexta 20 mg-10 mg capsule RxNorm: 8832849 1 Capsule(s) PO daily x 7 days then go to one cap BID 03/22/2017 04/24/2017 Inactive Ativan 0.5 mg tablet RxNorm: 178065 1/2 Tablet(s) PO Q6 PRN as needed 1/2 po q 2 pm 03/21/2017 08/01/2017 Inactive Keflex 500 mg capsule RxNorm: 082576 1 Capsule(s) PO TID 201603/05/2017 Inactive Keflex 500 mg capsule RxNorm: 953977 1 Capsule(s) PO TID 201603/15/2017 Inactive Ativan 0.5 mg tablet RxNorm: 183527 1/2 Tablet(s) PO Q6 PRN as needed 1/2 po q 2 pm 02/28/2017 03/20/2017 Inactive Protonix 20 mg tablet,delayed release RxNorm: 276701 1 Tablet(s) PO daily 02/07/2017 05/07/2017 Inactive Protonix 20 mg tablet,delayed release RxNorm: 398471 1 Tablet(s) PO daily 02/07/2017 02/06/2017 Inactive amoxicillin 500 mg capsule RxNorm: 363577 1 Capsule(s) PO TID 01/11/2017 01/10/2017 [facility] RxNorm: 059707 1 Capsule(s) PO TID 01/11/2017 01/17/2017 [facility] Exelon Patch 9.5 mg/24 hr transdermal RxNorm: 416481 APPLY ONE (1) PATCH ONCE DAILY. 12/14/2016 05/12/2017 Inactive Flonase 50 mcg/actuation nasal spray,suspension RxNorm: 7744635 1 [place] each nostril NASAL BID 10/30/2016 11/28/2016 Inactive 2 spray each nostril Namenda 10 mg tablet RxNorm: 245146 1 Tablet(s) PO BID 201609/04/2017 Inactive Risperdal 0.25 mg tablet RxNorm: 422074 1 Tablet(s) PO QHS 01/22/2017 Inactive trazodone 50 mg tablet RxNorm: 510064 1.5 Tablet(s) PO QHS 03/29/2017 Inactive Exelon Patch 9.5 mg/24 hr transdermal RxNorm: 874254 APPLY ONE (1) PATCH ONCE DAILY. 07/18/2016 12/13/2016 Inactive trazodone 50 mg tablet RxNorm: 798215 1.5 Tablet(s) PO QHS 09/24/2016 Inactive Exelon Patch 9.5 mg/24 hr transdermal RxNorm: 827778 APPLY ONE (1) PATCH ONCE DAILY. 05/15/2016 05/14/2016 Inactive Exelon Patch 9.5 mg/24 hr transdermal RxNorm: 499875 APPLY ONE (1) PATCH ONCE DAILY. 05/15/2016 10/18/2017 Inactive Risperdal 0.25 mg tablet RxNorm: 114212 1 Tablet(s) PO QHS 11/201509/24/2016 Inactive Exelon Patch 9.5 mg/24 hr transdermal RxNorm: 114986 APPLY ONE (1) PATCH ONCE DAILY. 2016 No Stop Date Active Exelon Patch 9.5 mg/24 hr transdermal RxNorm: 320954 APPLY ONE (1) PATCH ONCE DAILY. 2016 02/21/2016 Inactive trazodone 50 mg tablet RxNorm: 813166 1.5 Tablet(s) PO QHS 01/201605/28/2016 Inactive simvastatin 20 mg tablet RxNorm: 602550 1 Tablet(s) PO daily 01/31/2017 Inactive clopidogrel 75 mg tablet RxNorm: 756586 1 Tablet(s) PO daily 01/31/2017 Inactive Celexa 20 mg tablet RxNorm: 204075 1 Tablet(s) PO daily 201501/31/2017 Inactive [place] Instant Breakfast Juice Drink oral liquid RxNorm: PO QHS after meals 02/02/2016 12/20/2016 Inactive Flonase 50 mcg/actuation nasal spray,suspension RxNorm: 7401679 1 [place] each nostril NASAL BID 12/02/2015 03/30/2016 Inactive 2 spray each nostril Namenda 10 mg tablet RxNorm: 505120 1 Tablet(s) PO BID 201510/06/2016 Inactive Risperdal 0.25 mg tablet RxNorm: 638536 1 Tablet(s) PO QHS 02/29/2016 Inactive Exelon Patch 9.5 mg/24 hr transdermal RxNorm: 176486 1 Patch TD daily 1 Patch TD daily 07/23/2015 01/18/2016 Inactive Exelon Patch 9.5 mg/24 hr transdermal RxNorm: 942823 1 Patch TD daily 07/20/2015 07/22/2015 Inactive Celexa 20 mg tablet RxNorm: 026975 1 Tablet(s) PO daily 201402/06/2016 Inactive Flonase 50 mcg/actuation nasal spray,suspension RxNorm: 112710 1 [place] each nostril NASAL BID 06/04/2015 10/01/2015 Inactive 2 spray each nostril Risperdal 0.25 mg tablet RxNorm: 744646 1 Tablet(s) PO QHS 08/01/2015 Inactive Exelon Patch 9.5 mg/24 hr transdermal RxNorm: 332572 1 Patch TD daily 04/28/2015 07/19/2015 Inactive Vitamin D3 2,000 unit capsule RxNorm: 357146 1 Capsule(s) PO daily 02/10/2015 03/15/2016 Inactive Calcium 600 + D(3) 600 mg (1,500 mg)-400 unit tablet RxNorm: 796797 1 Tablet(s) PO daily 02/09/2015 No Stop Date Active Celexa 20 mg tablet RxNorm: 457594 1 Tablet(s) PO daily 201412/09/2014 Inactive Celexa 20 mg tablet RxNorm: 336462 1 Tablet(s) PO daily 201407/07/2015 Inactive Flonase 50 mcg/actuation nasal spray,suspension RxNorm: 175281 1 [place] each nostril NASAL BID 11/27/2014 03/26/2015 Inactive 2 spray each nostril Casi Allergy 180 mg tablet RxNorm: 420736 1 Tablet(s) PO daily 11/19/2014 12/18/2014 Inactive Marinol 2.5 mg capsule RxNorm: 592265 1 Capsule(s) PO TID 11/1603/15/2015 Inactive [SAVINGS FOR UNINSURED PATIENTS -- [id number], PCN: [id number], Group: [id number], ID# [id number], Process claim through [employer], for questions: . THIS IS NOT INSURANCE.] Namenda 10 mg tablet RxNorm: 496924 1 Tablet(s) PO BID 201402/08/2015 Inactive Marinol 2.5 mg capsule RxNorm: 489796 1 Capsule(s) PO TID 10/1211/10/2014 Inactive Namenda 10 mg tablet RxNorm: 706747 1 Tablet(s) PO BID 201410/11/2014 Inactive Flonase 50 mcg/actuation nasal spray,suspension RxNorm: 893724 2 [place] NASAL BID 08/17/2014 11/26/2014 Inactive 2 spray each nostril Exelon Patch 9.5 mg/24 hr transdermal RxNorm: 109943 1 Patch TD daily 07/10/2014 10/07/2014 Inactive Risperdal 0.25 mg tablet RxNorm: 748463 1 Tablet(s) PO QHS 05/201405/03/2015 Inactive Namenda XR 14 mg capsule sprinkle,ER 24hr RxNorm: 168899 1 Capsule(s) PO daily 04/13/2014 10/11/2014 Inactive acyclovir 800 mg tablet RxNorm: 077957 1 Tablet(s) PO TID 03/1203/18/2014 Inactive nystatin 100,000 unit/gram topical powder RxNorm: 680604 1 Gram(s) TOP QID apply to tissue under breasts and if needed other folded skin ears with evidence of yeast infection 03/12/2014 03/21/2014 Inactive simvastatin 20 mg tablet RxNorm: 190433 1 Tablet(s) PO daily 02/15/2014 Inactive trazodone 50 mg tablet RxNorm: 917342 1 1/2 Tablet(s) PO daily 02/16/2014 02/15/2014 Inactive trazodone 50 mg tablet RxNorm: 187693 1 1/2 Tablet(s) PO daily 02/16/2014 03/17/2014 Inactive clopidogrel 75 mg tablet RxNorm: 165116 1 Tablet(s) PO daily 02/10/2015 Inactive Exelon 4.6 mg/24 hour transdermal 24 hour patch RxNorm: 811121 1 TD daily 02/16/2014 03/17/2014 Inactive simvastatin 20 mg tablet RxNorm: 429140 1 Tablet(s) PO daily 06/15/2014 Inactive Vitamin B-12 2,500 mcg sublingual tablet RxNorm: 160200 1 Tablet(s) SL daily 01/22/2014 No Stop Date Active Ativan 0.5 mg tablet RxNorm: 579740 1/2 Tablet(s) PO Q6 PRN 1/2 po q 2 pm and 1 po q 6 hours prn anxiety 10/16/20132013 Inactive Cipro 500 mg tablet RxNorm: 350587 1 Tablet(s) PO BID correction 08/04/2013 08/08/2013 Inactive Cipro 500 mg tablet RxNorm: 218821 2 Tablet(s) PO BID 201208/03/2013 Inactive Cipro 500 mg tablet RxNorm: 331950 2 Tablet(s) PO BID 201207/31/2013 Inactive Influenza Virus Vaccine 0.5 mL RxNorm: IM 07/07/2013 07/07/2013 Inactive clopidogrel 75 mg tablet RxNorm: 823483 1 Tablet(s) PO daily 02/15/2014 Inactive risperidone 0.5 mg tablet RxNorm: 257642 1 Tablet(s) PO TID 01/21/2014 Inactive atorvastatin 20 mg tablet RxNorm: 039834 1 Tablet(s) PO QPM 01/21/2014 Inactive TAKE ONE TABLET BY MOUTH EVERY DAY risperidone 0.5 mg tablet RxNorm: 425600 1 Tablet(s) PO TID 02/201306/24/2013 Inactive Risperdal 0.25 mg tablet RxNorm: 011898 Tablet(s) PO TAKE 1 TABLET AT NOON AND TAKE 1 TABLET AT NIGHT IF NEEDED FOR HALLUCINATIONS 201206/11/2013 Inactive clopidogrel 75 mg tablet RxNorm: 816572 1 Tablet(s) PO daily 06/24/2013 Inactive Risperdal 0.25 mg tablet RxNorm: 706476 1 Tablet(s) PO noon one at noon and one in night if needed for hallucinations. 09/06/2012 01/01/2013 Inactive atorvastatin 20 mg tablet RxNorm: 446671 1 Tablet(s) PO QPM 06/24/2013 Inactive TAKE ONE TABLET BY MOUTH EVERY DAY risperidone 0.5 mg tablet RxNorm: 079072 1 Tablet(s) PO BID 06/11/2013 Inactive atorvastatin 20 mg tablet RxNorm: 210883 Tablet(s) PO 201109/05/2012 Inactive TAKE ONE TABLET BY MOUTH EVERY DAY nystatin 100,000 unit/g Topical Powder RxNorm: 675424 1 Gram(s) TOP BID 08/08/2012 08/27/2012 Inactive atorvastatin 20 mg tablet RxNorm: 007570 Tablet(s) PO 201108/11/2012 Inactive TAKE ONE TABLET BY MOUTH EVERY DAY risperidone 0.5 mg tablet RxNorm: 037036 1 Tablet(s) PO BID 03/201207/12/2012 Inactive Risperdal 0.25 mg tablet RxNorm: 143867 1 Tablet(s) PO noon one at noon and one in night if needed for hallucinations. 06/13/2012 09/05/2012 Inactive clopidogrel 75 mg tablet RxNorm: 090293 1 Tablet(s) PO daily 09/05/2012 Inactive atorvastatin 20 mg tablet RxNorm: 393416 1 Tablet(s) PO daily 05/10/2012 06/08/2012 Inactive Cipro 500 mg Tab RxNorm: 275284 1 Tablet(s) PO BID 201104/11/2012 Inactive Risperdal 0.25 mg tablet RxNorm: 707211 1 Tablet(s) PO noon one at noon and one in night if needed for hallucinations. 03/22/2012 06/12/2012 Inactive Risperdal 0.25 mg Tab RxNorm: 881950 1 Tablet(s) PO noon one at noon and one in night if needed for hallucinations. 03/21/2012 03/21/2012 Inactive Vitamin D3 2,000 unit tablet RxNorm: 116993 1 Tablet(s) PO daily No Start Date Active Protonix 20 mg tablet,delayed release RxNorm: 113170 1 Tablet(s) PO daily No Start Date Active Vitamin B-12 500 mcg tablet RxNorm: 071018 1 Tablet(s) PO daily No Start Date Active lorazepam 0.5 mg tablet RxNorm: 996678 1 Tablet(s) PO daily No Start Date Active melatonin 3 mg tablet RxNorm: 072899 2 Tablet(s) PO QHS No Start Date Active Tylenol 500 mg RxNorm : 1 -2 Tablet(s) PO Q6 as needed pain or fever No Start Date Active Vitamin D3 2,000 unit capsule RxNorm: 979706 1 Capsule(s) PO daily No Start Date 02/09/2015 Inactive trazodone 50 mg tablet RxNorm: 082964 1.5 Tablet(s) PO QHS No Start Date 02/08/2016 Inactive Trazadone 25 mg RxNorm : 3 PO QHS No Start Date 02/15/2014 Inactive [place] Instant Breakfast Juice Drink oral liquid RxNorm: PO TID after meals No Start Date 02/01/2016 Inactive Vitamin B-12 2,500 mcg sublingual tablet RxNorm: 656612 1 Tablet(s) SL daily No Start Date 01/21/2014 Inactive Tums Calcium for Life Bone 300 mg (750 mg) chewable tablet RxNorm: 942238 2 Tablet (s) PO daily No Start Date 02/12/2013 Inactive calcium 300 mg chewable tablet RxNorm: 1 Tablet(s) PO daily No Start Date 12/03/2015 Inactive with vitamin d Marinol 2.5 mg capsule RxNorm: 695359 1 Capsule(s) PO ac tid No Start Date 03/11/2014 Inactive Namenda XR 14 mg capsule sprinkle,ER 24hr RxNorm: 879531 1 Capsule(s) PO daily No Start Date 04/12/2014 Inactive clopidogrel 75 mg tablet RxNorm: 615204 1 Tablet(s) PO daily No Start Date 05/09/2012 Inactive Namenda 5 mg Tab RxNorm: 121561 1 Tablet(s) PO BID No Start Date 04/12/2014 Inactive Depakote 500 mg tablet,delayed release RxNorm: 9153765 1 Tablet(s) PO daily No Start Date 06/21/2017 Inactive Zocor 20 mg tablet RxNorm: 266238 1 Tablet(s) PO daily No Start Date 08/12/2014 Inactive losartan 50 mg tablet RxNorm: 198683 1 Tablet(s) PO daily No Start Date 11/04/2017 Inactive Depakote ER 250 mg tablet,extended release RxNorm: 1692096 1 Tablet(s) PO BID No Start Date 12/31/2013 Inactive Calcium 600 + D(3) oral RxNorm: 154339 oral No Start Date 02/08/2015 Inactive risperidone 0.5 mg tablet RxNorm: 882235 1 Tablet(s) PO BID No Start Date 06/12/2012 Inactive atorvastatin 20 mg tablet RxNorm: 963100 1 Tablet(s) PO daily No Start Date 05/09/2012 Inactive Flonase 50 mcg/actuation nasal spray,suspension RxNorm: 963825 2 [place] NASAL BID No Start Date 08/16/2014 Inactive 2 spray each nostril Exelon 4.6 mg/24 hour transdermal 24 hour patch RxNorm: 375129 1 TD daily No Start Date 02/15/2014 [...] 03/18/2012 completed Assessments Condition Codes Effective Dates Major depressive disorder, recurrent, 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 ICD-9: 296.31 08/16/2017 Essential (primary) hypertension ICD-10: I10 ICD-9: 401.1 08/16/2017 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 ICD-9: 298.8 08/16/2017 Dementia with Lewy bodies ICD-10: G31.83 ICD-9: 331.82 04/25/2017 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 ICD-9: 310.81 03/22/2017 Mixed hyperlipidemia ICD-10: E78.2 ICD-9: 272.2 12/21/2016 Encounter for immunization ICD-10: Z23 ICD-9: V04.81 [...] ICD-9: 112.3 03/12/2014 Shingles ICD-9: 053.9 03/12/2014 Weight loss ICD-9: 783.21 02/26/2014 Impacted cerumen of both ears ICD-9: 380.4 02/26/2014 HALLUCINATIONS ICD-9: 780.1 11/27/2013 SENILE DELUSION [...] For Visit Effective Dates Notes memory loss 08/16/2017 memory loss 05/17/2017 memory loss 04/25/2017 memory loss 03/22/2017 memory loss 12/21/2016 memory loss 09/21/2016 memory loss 06/22/2016 memory loss 03/23/2016 memory loss 12/16/2015 memory loss 09/16/2015 memory loss 07/01/2015 anxiety 02/25/2015 cough 11/19/2014 depression 08/13/2014 depression 06/11/2014 skin lesion 04/16/2014 reported by [facility] skin lesion 03/12/2014 weight loss 02/26/2014 medication follow up 11/27/2013 anxiety 10/16/2013 memory loss 07/10/2013 --Improved vaccination against influenza 07/07/2013 memory loss 06/12/2013 hallucination 02/13/2013 hallucination 01/06/2013 rash 09/19/2012 skin lesion 08/08/2012 vaccination against influenza 07/25/2012 memory loss 05/23/2012 hallucination 04/04/2012 dementia memory loss 03/21/2012 Results Observation Observation Code Item Item Code Result Date Valproic Acid Rjs983 VALPROIC 44.0 ug/ml 10/22/2017 Hepatic Fsz503 ALBUMIN 3.3 g/dL 10/22/2017 Hepatic Hyp575 TPRO 5.7 g/dL 10/22/2017 Hepatic Wig834 GLOB 2.4 g/dL 10/22/2017 Hepatic Gci274 A/G Ratio 1.4 Ratio 10/22/2017 Hepatic Iha369 ALK PHOS 72 U/L 10/22/2017 Hepatic Jia002 ALT(SGPT) 5 U/L 10/22/2017 Hepatic Fin720 AST(SGOT) 9 U/L 10/22/2017 Hepatic Hfq838 BILI T 0.3 mg/dL 10/22/2017 Hepatic Dvu795 BILI D 0.0 mg/dL 10/22/2017 Hepatic Qjb635 BILI I 0.3 mg/dL 10/22/2017 Hepatic Hzb900 ALBUMIN 3.8 g/dL 09/20/2017 Hepatic Uli011 TPRO 6.3 g/dL 09/20/2017 Hepatic Xjp708 GLOB 2.5 g/dL 09/20/2017 Hepatic Eji504 A/G Ratio 1.5 Ratio 09/20/2017 Hepatic Yod994 ALK PHOS 67 U/L 09/20/2017 Hepatic Anu003 ALT(SGPT) 5 U/L 09/20/2017 Hepatic Wsr202 AST(SGOT) 11 U/L 09/20/2017 Hepatic Nru581 BILI T 0.4 mg/dL 09/20/2017 Hepatic Dft007 BILI D 0.1 mg/dL 09/20/2017 Hepatic Roy823 BILI I 0.3 mg/dL 09/20/2017 Valproic Acid Zre064 VALPROIC 10.0 ug/ml 09/20/2017 Valproic Acid Vnv187 VALPROIC 44.0 ug/ml 08/23/2017 Hepatic Sgo856 ALBUMIN 3.5 g/dL 08/23/2017 Hepatic Hdt292 TPRO 6.1 g/dL 08/23/2017 Hepatic Dug244 GLOB 2.6 g/dL 08/23/2017 Hepatic Mew781 A/G Ratio 1.4 Ratio 08/23/2017 Hepatic Sjh533 ALK PHOS 63 U/L 08/23/2017 Hepatic Mzx991 ALT(SGPT) 5 U/L 08/23/2017 Hepatic Frz266 AST(SGOT) 9 U/L 08/23/2017 Hepatic Ttl610 BILI T 0.3 mg/dL 08/23/2017 Hepatic Dcu852 BILI D 0.1 mg/dL 08/23/2017 Hepatic Tka189 BILI I 0.2 mg/dL 08/23/2017 Hepatic Ado279 ALBUMIN 3.5 g/dL 07/23/2017 Hepatic Nhd365 TPRO 5.9 g/dL 07/23/2017 Hepatic Yux378 GLOB 2.4 g/dL 07/23/2017 Hepatic Nfa185 A/G Ratio 1.5 Ratio 07/23/2017 Hepatic Ipz472 ALK PHOS 61 U/L 07/23/2017 Hepatic Ayu664 ALT(SGPT) 6 U/L 07/23/2017 Hepatic Bdr968 AST(SGOT) 11 U/L 07/23/2017 Hepatic Gwb625 BILI T 0.3 mg/dL 07/23/2017 Hepatic Fdr792 BILI D 0.1 mg/dL 07/23/2017 Hepatic Zpe514 BILI I 0.2 mg/dL 07/23/2017 Valproic Acid Ray734 VALPROIC 37.0 ug/ml 07/23/2017 Hepatic Sjb085 ALBUMIN 3.6 g/dL 06/26/2017 Hepatic Dnn813 TPRO 6.0 g/dL 06/26/2017 Hepatic Lqj760 GLOB 2.4 g/dL 06/26/2017 Hepatic Bfc459 A/G Ratio 1.5 Ratio 06/26/2017 Hepatic Kfs707 ALK PHOS 64 U/L 06/26/2017 Hepatic Iei859 ALT(SGPT) 8 U/L 06/26/2017 Hepatic Lgu861 AST(SGOT) 11 U/L 06/26/2017 Hepatic Dqh995 BILI T 0.3 mg/dL 06/26/2017 Hepatic Uri418 BILI D 0.1 mg/dL 06/26/2017 Hepatic Hbu101 BILI I 0.2 mg/dL 06/26/2017 Valproic Acid Pfi439 VALPROIC 45.0 ug/ml 06/26/2017 Comp Metabolic Uif328 NA 140 mEq/L 05/18/2017 Comp Metabolic Rfs942 K 4.2 mEq/L 05/18/2017 Comp Metabolic Gdi678 CL 103 mEq/L 05/18/2017 Comp Metabolic Lwb099 CO2 27.0 mEq/L 05/18/2017 Comp Metabolic Zxv258 ANION GAP 14 05/18/2017 Comp Metabolic Wrj388 GLUCOSE 85 mg/dL 05/18/2017 Comp Metabolic Yly695 Creat 0.6 mg/dL 05/18/2017 Comp Metabolic Bky501 eGFR 109 ml/min/1.73m2 05/18/2017 Comp Metabolic Boc713 BUN 8 mg/dL 05/18/2017 Comp Metabolic Pyf344 B/C Ratio 14.3 Ratio 05/18/2017 Comp Metabolic Crl099 CALCIUM 8.6 mg/dL 05/18/2017 Comp Metabolic Ure285 ALK PHOS 85 U/L 05/18/2017 Comp Metabolic Gfi460 AST(SGOT) 10 U/L 05/18/2017 Comp Metabolic Rgn412 ALT(SGPT) 6 U/L 05/18/2017 Comp Metabolic Zth234 BILI T 0.4 mg/dL 05/18/2017 Comp Metabolic Owv765 ALBUMIN 3.7 g/dL 05/18/2017 Comp Metabolic Ciy971 TPRO 6.3 g/dL 05/18/2017 Comp Metabolic Tvq010 GLOB 2.6 g/dL 05/18/2017 Comp Metabolic Hka909 A/G Ratio 1.4 Ratio 05/18/2017 Comp Metabolic Hsy578 Osmo 277 mOsmo 05/18/2017 Valproic Acid Ewk276 VALPROIC 27.0 ug/ml 05/18/2017 Bili D Ord93 BILI D 0.1 mg/dL 05/18/2017 Bili D Ord93 BILI I 0.3 mg/dL 05/18/2017 Urinalysis Ord28 U-Color Yellow 04/11/2017 Urinalysis [...] 04/11/2017 Urinalysis Ord28 U-Yeast NEGATIVE 04/11/2017 A1C 8234430 A1C HPLC 36881-0 5.9 % 07/08/2013 CHEM 14 1161691 AST 14 U/L 07/07/2013 CHEM 14 5040872 ALT 10 IU/L 07/07/2013 CHEM 14 8562780 BUN 11 MG/DL 07/07/2013 CHEM 14 1573808 ALBUMIN 4.1 GM/DL 07/07/2013 CHEM 14 3051655 CHLORIDE 107 MMOL/L 07/07/2013 CHEM 14 5440949 BILI TOT 0.4 MG/DL 07/07/2013 CHEM 14 8330973 ALK PHOS 54 U/L 07/07/2013 CHEM 14 3514294 SODIUM 141 MMOL/L 07/07/2013 CHEM 14 3886684 CREATININE 0.70 MG/DL 07/07/2013 CHEM 14 9275141 CALCIUM 9.0 MG/DL 07/07/2013 CHEM 14 5531916 POTASSIUM 4.2 MMOL/L 07/07/2013 CHEM 14 8855454 PROT TOT 6.5 GM/DL 07/07/2013 CHEM 14 9839816 GLUCOSE 102 MG/DL 07/07/2013 CHEM 14 1003533 BICARB 28 MMOL/L 07/07/2013 CHEM 14 0385642 ANION GAP 6 MEQ/L 07/07/2013 GFR CALC 6708595 GFR AA >60 ML/MIN 07/07/2013 GFR CALC 2943693 GFR NON-AA >60 ML/MIN 07/07/2013 CBC 9298489 WBC 8.9 10e9/L 07/07/2013 CBC 2097198 RBC 4.27 10e12/L 07/07/2013 CBC 1194305 HGB 12.7 g/dL 07/07/2013 CBC 3016315 HCT DET 39.0 % 07/07/2013 CBC 9879632 MCV 91.3 fL 07/07/2013 CBC 1162321 MCH 29.7 pg 07/07/2013 CBC 3244789 MCHC 32.6 g/dL 07/07/2013 CBC 9825502 PLT 273 10e9/L 07/07/2013 CBC 3837454 MPV 11.0 fL 07/07/2013 CBC 5697064 TORREY % 69.1 % 07/07/2013 CBC 2192576 LY % 19.6 % 07/07/2013 CBC 8961062 MON % 8.5 % 07/07/2013 CBC 7160633 EOS % 2.6 % 07/07/2013 CBC 6965585 BASO % 0.2 % 07/07/2013 CBC 3199714 RDW 13.0 % 07/07/2013 CBC 4514057 ABS TORREY 6.15 10e9/L 07/07/2013 CBC 8060723 ABS LYMPH 1.74 10e9/L 07/07/2013 CBC 2666957 ABS MONO 0.76 10e9/L 07/07/2013 CBC 8268178 ABS EOS 0.23 10e9/L 07/07/2013 CBC 6348062 ABS BASO 0.02 10e9/L 07/07/2013 CBC 8712732 RDW-SD 42.3 fL 07/07/2013 LIPID GRP HDL TEST 47 MG/DL 07/07/2013 LIPID GRP TRIG 121 MG/DL 07/07/2013 LIPID GRP TEST LDL 63 MG/DL 07/07/2013 LIPID GRP CHOL 134 MG/DL 07/07/2013 LIPID GRP RCHOL/HDL 2.85 RATIO 07/07/2013 CHEM 14 6365407 AST 14 U/L 01/06/2013 CHEM 14 2570102 ALT 12 IU/L 01/06/2013 CHEM 14 5458009 BUN 9 MG/DL 01/06/2013 CHEM 14 3627829 ALBUMIN 4.2 GM/DL 01/06/2013 CHEM 14 9716489 CHLORIDE 108 MMOL/L 01/06/2013 CHEM 14 2674738 BILI TOT 0.4 MG/DL 01/06/2013 CHEM 14 9741032 ALK PHOS 74 U/L 01/06/2013 CHEM 14 5281033 SODIUM 142 MMOL/L 01/06/2013 CHEM 14 1461138 CREATININE 0.62 MG/DL 01/06/2013 CHEM 14 9949524 CALCIUM 9.0 MG/DL 01/06/2013 CHEM 14 9588516 POTASSIUM 4.3 MMOL/L 01/06/2013 CHEM 14 9755833 PROT TOT 6.6 GM/DL 01/06/2013 CHEM 14 6422917 GLUCOSE 94 MG/DL 01/06/2013 CHEM 14 9835795 BICARB 25 MMOL/L 01/06/2013 CHEM 14 0688204 ANION GAP 9 MEQ/L 01/06/2013 CBC 5811605 WBC 7.2 10e9/L 01/06/2013 CBC 4642838 RBC 4.22 10e12/L 01/06/2013 CBC 2526589 HGB 12.6 g/dL 01/06/2013 CBC 0116951 HCT DET 38.3 % 01/06/2013 CBC 3906267 MCV 90.8 fL 01/06/2013 CBC 4264104 MCH 29.9 pg 01/06/2013 CBC 9030662 MCHC 32.9 g/dL 01/06/2013 CBC 0201023 PLT 287 10e9/L 01/06/2013 CBC [id number] MPV 11.0 fL 01/06/2013 CBC 8218891 TORREY % 68.0 % 01/06/2013 CBC 4742958 LY % 21.6 % 01/06/2013 CBC 5209859 MON % 9.0 % 01/06/2013 CBC [id number] EOS % 1.3 % 01/06/2013 CBC 4954568 BASO % 0.1 % 01/06/2013 CBC 7908384 RDW 13.3 % 01/06/2013 CBC 1676537 ABS TORREY 4.90 10e9/L 01/06/2013 CBC 4311497 ABS LYMPH 1.56 10e9/L 01/06/2013 CBC 4906271 ABS MONO 0.65 10e9/L 01/06/2013 CBC 5511487 ABS EOS 0.09 10e9/L 01/06/2013 CBC 2859026 ABS BASO 0.01 10e9/L 01/06/2013 CBC 7783224 RDW-SD 43.0 fL 01/06/2013 TSH 9360790 TSH 1.814 uIU/ML 01/06/2013 GFR CALC 3500938 GFR AA >60 ML/MIN 01/06/2013 GFR CALC 0520122 GFR NON-AA >60 ML/MIN 01/06/2013 FREE T4 6521177 FREE T4 1.19 NG/DL 01/06/2013 VIT B 12 4088460 VIT B 12 >2000 PG/ML 01/06/2013 URINALYSIS NONAUTO W/O SCOPE 92927 Specific [place] 1.020 DateTime(Free Text in Aprima) URINALYSIS NONAUTO W/O SCOPE 22408 PH 6.0 DateTime(Free Text in Aprima) URINALYSIS NONAUTO W/O SCOPE 41909 GLUCOSE negative DateTime(Free Text in Aprima) URINALYSIS NONAUTO W/O SCOPE 34285 Protein negative DateTime(Free Text in Apr[employer]) URINALYSIS NONAUTO W/O SCOPE 07645 Blood negative DateTime( Free Text in Aprima) URINALYSIS NONAUTO W/O SCOPE 25545 Bilirubin negative DateTime(Free Text in Aprima) URINALYSIS NONAUTO W/O SCOPE 65975 Ketones trace DateTime(Free Text in Aprima) URINALYSIS NONAUTO W/O SCOPE 21032 Urobilinogen negative DateTime(Free Text in Aprima) URINALYSIS NONAUTO W/O SCOPE 85253 Nitrite negative DateTime(Free Text in Aprima) URINALYSIS NONAUTO W/O SCOPE 33912 Leukocytes 1+ DateTime(Free Text in Aprima) URINALYSIS NONAUTO W/O SCOPE 80507 Specific [place] 1.005 DateTime(Free Text in Aprima) URINALYSIS NONAUTO W/O SCOPE 93385 PH 5 DateTime(Free Text in Aprima) URINALYSIS NONAUTO W/O SCOPE 70523 GLUCOSE neg DateTime( Free Text in Aprima) URINALYSIS NONAUTO W/O SCOPE 91021 Protein neg DateTime( Free Text in Aprima) URINALYSIS NONAUTO W/O SCOPE 74149 Blood neg DateTime(Free Text in Aprima) URINALYSIS NONAUTO W/O SCOPE 06806 Bilirubin neg DateTime(Free Text in Aprima) URINALYSIS NONAUTO W/O SCOPE 93363 Ketones neg DateTime( Free Text in Aprima) URINALYSIS NONAUTO W/O SCOPE 81150 Urobilinogen neg DateTime(Free Text in Aprima) URINALYSIS NONAUTO W/O SCOPE 31739 Nitrite neg DateTime( Free Text in Aprima) URINALYSIS NONAUTO W/O SCOPE 40310 Leukocytes neg DateTime(Free Text in Aprima) URINALYSIS NONAUTO W/O SCOPE 00711 Specific [place] 1.010 DateTime(Free Text in Aprima) URINALYSIS NONAUTO W/O SCOPE 83533 PH 6 DateTime(Free Text in Aprima) URINALYSIS NONAUTO W/O SCOPE 63702 GLUCOSE DateTime( Free Text in Aprima) URINALYSIS NONAUTO W/O SCOPE 71321 Protein DateTime( Free Text in Aprima) URINALYSIS NONAUTO W/O SCOPE 23459 Blood DateTime(Free Text in Aprima) URINALYSIS NONAUTO W/O SCOPE 65534 Bilirubin DateTime( Free Text in Aprima) URINALYSIS NONAUTO W/O SCOPE 61246 Ketones DateTime( Free Text in Aprima) URINALYSIS NONAUTO W/O SCOPE 99518 Urobilinogen DateTime (Free Text in Aprima) URINALYSIS NONAUTO W/O SCOPE 88616 Nitrite DateTime( Free Text in Aprima) URINALYSIS NONAUTO W/O SCOPE 81825 Leukocytes trace DateTime(Free Text in Aprima) Review of Systems System Result Effective Dates Constitutional No anorexia 08/16/2017 Constitutional No night [...] benign 06/11/2014 None Full Exam - General 1995 Lymphatic [...] clubbing 10/16/2013 None Full Exam - General 1994 Cardiovascular auscultation of heart Overall: regular rate 10/16/2013 None Full Exam - General 1994 Cardiovascular auscultation of heart Overall: normal heart sounds 10/16/2013 None Full Exam - General 1994 Cardiovascular auscultation of heart Overall: no murmurs 10/16/2013 None Full Exam - General 1994 Abdomen abdominal exam Overall: no tenderness 10/16/2013 None Full Exam - General 1994 Abdomen abdominal exam Overall: normal bowel sounds 10/16/2013 None Full Exam - General 1994 Lymphatic neck nodes Overall: anterior cervical chain benign 10/16/2013 None Full Exam - General 1994 Lymphatic neck nodes Overall: posterior cervical chain benign 10/16/2013 None Full Exam - General 1994 Musculoskeletal spine, ribs and pelvis Overall: ribs benign 10/16/2013 None Full Exam - General 1994 Musculoskeletal spine, ribs and pelvis Posture: kyphosis 10/16/2013 None Full Exam - General 1994 Musculoskeletal spine, ribs and pelvis Posture: lordosis 10/16/2013 None Full Exam - General 1995 Musculoskeletal head and neck Overall: head atraumatic 10/16/2013 None Full Exam - General 1994 Musculoskeletal head and neck Overall: cervical spine benign 10/16/2013 None Full Exam - General 1995 Neurologic deep tendon reflexes Overall: deep tendon reflexes intact 10/16/2013 None Full Exam - General 1995 Neurologic gait Conventional walking: wide-based 10/16/2013 None Full Exam - General 1994 Psychiatric orientation/consciousness Oriented to person: yes 10/16/2013 None Full Exam - General 1995 Psychiatric orientation/consciousness Oriented to place: no 10/16/2013 None Full Exam - General 1995 Psychiatric orientation/consciousness Oriented to time: no 10/16/2013 None Full Exam - General 1995 Psychiatric orientation/consciousness Level of consciousness: alert 10/16/2013 [...] tenderness 07/10/2013 None Full Exam - General 1994 [...] kyphosis 07/10/2013 None Full Exam - General 1994 [...] nourished 07/10/2013 None Full Exam - General 1995 [...] yes 07/10/2013 None Full Exam - General 1994 Psychiatric orientation/consciousness Oriented to place: no 07/10/2013 None Full Exam - General 1994 Psychiatric orientation/consciousness Oriented to time: no 07/10/2013 None Full Exam - General 1994 Psychiatric orientation/consciousness Level of consciousness: alert 07/10/2013 None Full Exam - General 1994 Psychiatric mood and affect Overall: normal mood and affect 07/10/2013 None Full Exam - General 1994 Constitutional general appearance Overall: well developed 06/12/2013 None Full Exam - General 1994 Constitutional general appearance Overall: in no acute distress 06/12/2013 None Full Exam - General 1994 Constitutional general appearance Overall: well nourished 06/12/2013 None Full Exam - General 1994 Ears/Nose/Throat otoscopic exam Overall: external auditory canals clear 06/12/2013 None Full Exam - General 1994 Ears/Nose/Throat otoscopic exam Overall: tympanic membranes clear 06/12/2013 None Full Exam - General 1994 Ears/Nose/Throat oral cavity/pharynx/larynx Overall: oral mucosa clear 06/12/2013 None Full Exam - General 1995 Ears/Nose/Throat oral cavity/pharynx/larynx Overall: oropharyngeal mucosa clear 06/12/2013 None Full Exam - General 1995 Ears/Nose/Throat oral cavity/pharynx/larynx Overall: no masses 06/12/2013 None Full Exam - General 1995 Respiratory auscultation Overall: breath sounds clear bilaterally 06/12/2013 None Full Exam - General 1995 Respiratory respiratory effort/rhythm Overall: no retractions 06/12/2013 None Full Exam - General 1995 Respiratory respiratory effort/rhythm Overall: normal rate 06/12/2013 None Full Exam - General 1995 Cardiovascular extremities Overall: no clubbing 06/12/2013 None Full Exam - General 1995 Cardiovascular auscultation of heart Overall: regular rate 06/12/2013 None Full Exam - General 1995 Cardiovascular auscultation of heart Overall: normal heart sounds 06/12/2013 None Full Exam - General 1995 Cardiovascular [...] kyphosis 06/12/2013 None Full Exam - General 1994 Musculoskeletal spine, ribs and pelvis Posture: lordosis 06/12/2013 None Full Exam - General 1994 Musculoskeletal head and neck Overall: head atraumatic 06/12/2013 None Full Exam - General 1994 Musculoskeletal head and neck Overall: cervical spine benign 06/12/2013 None Full Exam - General 1994 Neurologic deep tendon reflexes Overall: deep tendon reflexes intact 06/12/2013 None Full Exam - General 1994 Neurologic gait Conventional walking: wide-based 06/12/2013 None [...] developed 02/13/2013 None Full Exam - General 1995 Constitutional general appearance Overall: in no acute distress 02/13/2013 None Full Exam - General 1994 Constitutional general appearance Overall: well nourished 02/13/2013 None Full Exam - General 1995 Ears/Nose/Throat otoscopic exam Overall: external auditory canals clear 02/13/2013 None Full Exam - General 1995 Ears/Nose/Throat otoscopic exam Overall: tympanic membranes clear 02/13/2013 None Full Exam - General 1995 Ears/Nose/Throat oral cavity/pharynx/larynx Overall: oral mucosa clear 02/13/2013 None Full Exam - General 1995 Ears/Nose/Throat oral cavity/pharynx/larynx Overall: oropharyngeal mucosa clear 02/13/2013 None Full Exam - General 1995 Ears/Nose/Throat oral cavity/pharynx/larynx Overall: no masses 02/13/2013 None Full Exam - General 1994 Respiratory auscultation Overall: breath sounds clear bilaterally 02/13/2013 None Full Exam - General 1994 Respiratory respiratory effort/rhythm Overall: no retractions 02/13/2013 None Full Exam - General 1994 Respiratory respiratory effort/rhythm Overall: normal rate 02/13/2013 None Full Exam - General 1994 Cardiovascular extremities Overall: no clubbing 02/13/2013 None Full Exam - General 1994 Cardiovascular auscultation of heart Overall: regular rate 02/13/2013 None Full Exam - General 1994 Cardiovascular auscultation of heart Overall: normal heart sounds 02/13/2013 None Full Exam - General 1994 Cardiovascular auscultation of heart Overall: no murmurs 02/13/2013 None Full Exam - General 1994 Abdomen abdominal exam Overall: no tenderness 02/13/2013 None Full Exam - General 1994 Abdomen abdominal exam Overall: normal bowel sounds 02/13/2013 None Full Exam - General 1994 Lymphatic neck nodes Overall: anterior cervical chain benign 02/13/2013 None Full Exam - General 1994 Lymphatic neck nodes Overall: posterior cervical chain benign 02/13/2013 None Full Exam - General 1994 Musculoskeletal spine, ribs and pelvis Overall: ribs benign 02/13/2013 None Full Exam - General 1994 Musculoskeletal spine, ribs and pelvis Posture: kyphosis 02/13/2013 None Full Exam - General 1995 Musculoskeletal spine, ribs and pelvis Posture: lordosis 02/13/2013 None Full Exam - General 1994 Musculoskeletal head and neck Overall: head atraumatic 02/13/2013 None Full Exam - General 1995 Musculoskeletal head and neck Overall: cervical spine [...] clubbing 01/06/2013 None Full Exam - General 1995 Cardiovascular auscultation of heart Overall: regular rate 01/06/2013 None Full Exam - General 1995 Cardiovascular auscultation of heart Overall: normal heart sounds 01/06/2013 None Full Exam - General 1995 Cardiovascular auscultation of heart Overall: no murmurs 01/06/2013 None Full Exam - General 1995 Abdomen abdominal exam Overall: no tenderness 01/06/2013 None Full Exam - General 1995 Abdomen abdominal exam Overall: normal bowel sounds 01/06/2013 None Full Exam - General 1995 Lymphatic neck nodes Overall: anterior cervical chain benign 01/06/2013 None Full Exam - General 1995 Lymphatic neck nodes Overall: posterior cervical chain benign 01/06/2013 None Full Exam - General 1995 Musculoskeletal spine, ribs and pelvis Overall: ribs benign 01/06/2013 None Full Exam - General 1995 Musculoskeletal spine, ribs and pelvis Posture: kyphosis 01/06/2013 None Full Exam - General 1995 Musculoskeletal [...] clear 09/19/2012 None Full Exam - General 1995 Ears/Nose/Throat oral cavity/pharynx/larynx Overall: oral mucosa clear 09/19/2012 None Full Exam - General 1995 Ears/Nose/Throat oral cavity/pharynx/larynx Overall: oropharyngeal mucosa clear 09/19/2012 None Full Exam - General 1995 Ears/Nose/Throat oral cavity/pharynx/larynx Overall: no masses 09/19/2012 [...] affect 09/19/2012 None Full Exam - General 1995 Integument inspection of skin Dermatitis: erythema 09/19/2012 [...] clear 05/23/2012 None Full Exam - General 1995 Ears/Nose/Throat oral cavity/pharynx/larynx Overall: no masses 05/23/2012 [...] 1994 Ears/Nose/Throat oral cavity/pharynx/larynx Overall: no masses 04/04/2012 [...] sounds 04/04/2012 None Full Exam - General 1995 Cardiovascular auscultation of heart Overall: no murmurs 04/04/2012 None Full Exam - General 1994 Abdomen abdominal exam Overall: no tenderness 04/04/2012 None Full Exam - General 1995 Constitutional general appearance Overall: well developed 04/04/2012 None Full Exam - General 1995 Constitutional general appearance Overall: in no acute distress 04/04/2012 None Full Exam - General 1995 Constitutional general appearance Overall: well nourished 04/04/2012 None Full Exam - General 1995 Abdomen abdominal exam Overall: normal bowel sounds 04/04/2012 None Full Exam - General 1995 Lymphatic neck nodes Overall: anterior cervical chain benign 04/04/2012 None Full Exam - General 1995 Lymphatic neck nodes Overall: posterior cervical chain benign 04/04/2012 None Full Exam - General 1995 Musculoskeletal [...] 1994 Ears/Nose/Throat oral cavity/pharynx/larynx Overall: no masses 03/21/2012 None Full Exam - General 1994 [...] FLU VACC PRSV FREE INC ANTIG CPT-4: 30658 06/22/2016 ADMIN PNEUMOCOCCAL VACCINE SNOMED CT: 82728510 CPT-4: G0009 09/16/2015 PNEUMOCOCCAL VACC 13 QUYEN IM Formatting Model/CDA Sections, Assigned to SNOMED CT: 51288355 CPT-4: 33843Slhkbsl 09/16/2015 ADMIN INFLUENZA VIRUS VAC Formatting Model/CDA Sections, Assigned to/Arabella Sharma CPT-4: [id number] 07/01/2015 FLU VACC 4 QUYEN 3 YRS PLUS IM SNOMED CT: 01257970 CPT-4: 62723 07/01/2015 FLU VAC NO PRSV 4 QUYEN 3 YRS+ CPT-4: 77618 06/11/2014 ADMIN INFLUENZA VIRUS VAC Assigned to/Arabella Sharma CPT-4: [id number] 06/11/2014 URINALYSIS NONAUTO W/O SCOPE CPT-4: 88277 07/31/2013 ADMIN INFLUENZA VIRUS VAC CPT-4: G0008 07/07/2013 FLULAVAL VACC, 3 YRS & >, IM CPT-4: Q2036 07/07/2013 ROUTINE VENIPUNCTURE CPT-4: 25019 07/07/2013 65765 EST. PATIENT, LEVEL IV CPT-4: 33919 06/12/2013 04114 EST. PATIENT, LEVEL IV CPT-4: 55459 02/13/2013 ROUTINE VENIPUNCTURE CPT-4: 36694 01/06/2013 URINALYSIS NONAUTO W/O SCOPE CPT-4: 19615 01/06/2013 85852 EST. PATIENT, LEVEL IV CPT-4: 91880 09/19/2012 URINALYSIS NONAUTO W/O SCOPE CPT-4: 64001 09/19/2012 IMMUNIZATION ADMIN CPT -4: 05436 07/25/2012 Influenza Virus Vaccine, Split Virus, >3 Yrs, IM CPT-4: 56189 07/25/2012 URINALYSIS NONAUTO W/O SCOPE CPT-4: 22938 05/23/2012 URINALYSIS NONAUTO W/O SCOPE CPT-4: 22227 04/05/2012 Vital Signs Date Vital 08/16/2017 Blood Pressure 1: 130/68 Code : 8480-6 BMI: 28.9 Code : 88116-4 Heart Rate 1 : 63 bpm Height: 5'2" SpO2: 96% Weight: 158 lbs 05/17/2017 Blood Pressure 1: 138/80 Code : 8480-6 Heart Rate 1: 88 bpm Height: SpO2: 96% Weight: 04/25/2017 Blood Pressure 1: 140/74 Code : 8480-6 BMI: 29.8 Code : 71072-5 Heart Rate 1 : 106 bpm Height: 5'2" SpO2: 96% Weight: 163 lbs 03/22/2017 Blood Pressure 1: 128/82 Code : 8480-6 BMI: 30.4 Code : 37774-3 Heart Rate 1 : 76 bpm Height: 5'2" SpO2: 95% Weight: 166 lbs 12/21/2016 Blood Pressure 1: 144/80 Code : 8480-6 BMI: 30.9 Code : 47276-9 Heart Rate 1 : 72 bpm Height: 5'2" SpO2: 98% Weight: 169 lbs 09/21/2016 Blood Pressure 1: 140/76 Code : 8480-6 BMI: 30.5 Code : 00486-1 Heart Rate 1 : 78 bpm Height: 5'2" SpO2: 97% Weight: 167 lbs 06/22/2016 Blood Pressure 1: 132/74 Code : 8480-6 BMI: 30.9 Code : 49363-7 Heart Rate 1 : 71 bpm Height: 5'2" SpO2: 98% Weight: 169 lbs 03/23/2016 Blood Pressure 1: 122/68 Code : 8480-6 BMI: 29.8 Code : 23267-0 Heart Rate 1 : 68 bpm Height: 5'2" SpO2: 98% Weight: 163 lbs 12/16/2015 Blood Pressure 1: 142/70 Code : 8480-6 BMI: 30.5 Code : 94615-3 Heart Rate 1 : 68 bpm Height: 5'2" SpO2: 98% Weight: 167 lbs 09/16/2015 Blood Pressure 1: 124/58 Code : 8480-6 BMI: 30.0 Code : 91421-3 Heart Rate 1 : 59 bpm Height: 5'2" SpO2: 96% Weight: 164 lbs 07/01/2015 Blood Pressure 1: 128/74 Code : 8480-6 BMI: 29.8 Code : 28524-7 Heart Rate 1 : 62 bpm Height: 5'2" SpO2: 98% Weight: 163 lbs 02/25/2015 Blood Pressure 1: 142/92 Code : 8480-6 Blood Pressure 2: 138/90 Code: 8480-6 BMI: 29.1 Code: 53336-4 Heart Rate 1: 78 bpm Height: 5'2" SpO2: 98% Weight: 159 lbs 11/19/2014 Blood Pressure 1: 130/80 Code : 8480-6 BMI: 28.3 Code : 74779-3 Heart Rate 1 : 68 bpm Height: 5'2" Weight: 155 lbs 08/13/2014 Blood Pressure 1: 122/62 Code : 8480-6 BMI: 27.4 Code : 02558-2 Heart Rate 1 : 72 bpm Height: 5'2" Weight: 150 lbs 06/11/2014 Blood Pressure 1: 112/56 Code : 8480-6 BMI: 27.0 Code : 63215-3 Heart Rate 1 : 67 bpm Height: 5'2" SpO2: 98% Weight: 147 lbs 8 oz 04/16/2014 Blood Pressure 1: 120/62 Code : 8480-6 BMI: 26.7 Code : 99335-0 Heart Rate 1 : 68 bpm Height: 5'2" Weight: 146 lbs 03/12/2014 Blood Pressure 1: 132/82 Code : 8480-6 BMI: 27.1 Code : 45344-3 Heart Rate 1 : 64 bpm Height: 5'2" Weight: 148 lbs 02/26/2014 Blood Pressure 1: 104/50 Code : 8480-6 BMI: 25.8 Code : 96878-9 Heart Rate 1 : 64 bpm Height: 5'2" Weight: 141 lbs 11/27/2013 Blood Pressure 1: 122/68 Code : 8480-6 Heart Rate 1: 60 bpm Weight: 153 lbs 10/16/2013 Blood Pressure 1: 136/72 Code : 8480-6 BMI: 27.4 Code : 51460-1 Heart Rate 1 : 80 bpm Height: 5'2" Weight: 150 lbs 07/10/2013 Blood Pressure 1: 126/76 Code : 8480-6 BMI: 27.3 Code : 90151-2 Heart Rate 1 : 80 bpm Height: 5'2" Weight: 149 lbs 06/12/2013 Blood Pressure 1: 168/80 Code : 8480-6 BMI: 27.3 Code : 89200-7 Heart Rate 1 : 76 bpm Height: 5'2" Weight: 149 lbs 8 oz 02/13/2013 Blood Pressure 1: 108/72 Code : 8480-6 BMI: 27.4 Code : 83445-2 Heart Rate 1 : 80 bpm Height: 5'2" Weight: 150 lbs 01/06/2013 Blood Pressure 1: 126/62 Code : 8480-6 BMI: 27.6 Code : 27781-3 Heart Rate 1 : 76 bpm Height: [...] Code : 8480-6 BMI: 27.8 Code : 54588-6 Heart Rate 1 : 80 bpm Height: [...] Present Encounters Encounter Performer Location Codes Date ([id number]) 94589 EST. 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 PATIENT, LEVEL IV Diagnosis: Mixed hyperlipidemia[ICD10: E78.2] Diagnosis: Dementia with Lewy bodies[ICD10: G31.83] Diagnosis: Major depressive disorder, recurrent, mild[ICD10: F33.0] Allie Mcneill MD, [facility] CPT-4: 56596 12/21/2016 ([id number]) 17276 EST. PATIENT, LEVEL IV Diagnosis: Dementia with Lewy bodies[ICD10: G31.83] Diagnosis: Mixed hyperlipidemia[ICD10: E78.2] Diagnosis: Encounter for immunization[ICD10: Z23] Diagnosis: Major depressive disorder, recurrent, mild[ICD10: F33.0] Allie Mcneill MD, [facility] CPT-4: 69017 09/21/2016 ([id number]) 99729 EST. PATIENT, LEVEL III Diagnosis: Encounter for immunization[ICD10: Z23] Diagnosis: Dementia with Lewy bodies[ICD10: G31.83] Diagnosis: Major depressive disorder, recurrent, mild[ICD10: F33.0] Allie Mcneill MD, [facility] CPT-4: 84693 06/22/2016 ([id number]) 04566 EST. PATIENT, LEVEL III Diagnosis: Mixed hyperlipidemia[ICD10: E78.2] Diagnosis: Dementia with Lewy bodies[ICD10: G31.83] Allie Mcneill MD [facility] CPT-4: 29173 03/23/2016 ([id number]) 75874 EST. PATIENT, LEVEL IV Diagnosis: Dementia with Lewy bodies[ICD10: G31.83] Diagnosis: Other hallucinations[ICD10: R44.2] Diagnosis: Mixed hyperlipidemia[ICD10: E78.2] Allie Mcneill MD, [facility] CPT-4: 49920 12/16/2015 ([id number]) 13847 EST. PATIENT, LEVEL IV Diagnosis: Dementia with Lewy bodies[ICD10: G31.83] Diagnosis: Other hallucinations[ICD10: R44.2] Diagnosis: Mixed hyperlipidemia[ICD10: E78.2] Diagnosis: Encounter for immunization[ICD10: Z23] Allie Mcneill MD, [facility] CPT-4: 41049 09/16/2015 ([id number]) 68335 EST. PATIENT, LEVEL IV Diagnosis: HYPERLIPIDEMIA[ICD9: 272.4] Diagnosis: DEMEN NOS 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[ICD9: 294.20] Diagnosis: LEWY BODY DEMENTIA[ICD9: 331.82] Diagnosis: VACCIN FOR INFLUENZA[ICD9: V04.81] Allie Mcneill MD, [facility] CPT-4: 21877 07/01/2015 ([id number]) 24047 EST. PATIENT, LEVEL IV Diagnosis: HYPERLIPIDEMIA[ICD9: 272.4] Diagnosis: Dementia[ICD9: 294.20] Diagnosis: LEWY BODY DEMENTIA[ICD9: 331.82] Allie Mcneill MD, [facility] CPT-4: 17285 02/25/2015 ([id number]) 20062 EST. PATIENT, LEVEL IV Diagnosis: HYPERLIPIDEMIA[ICD9: 272.4] Diagnosis: Dementia[ICD9: 294.20] Diagnosis: LEWY BODY DEMENTIA[ICD9: 331.82] Allie Mcneill MD, [facility] CPT-4: 13670 11/19/2014 ([id number]) 21481 EST. PATIENT, LEVEL IV Diagnosis: HYPERLIPIDEMIA[ICD9: 272.4] Diagnosis: LEWY BODY DEMENTIA[ICD9: 331.82] Allie Mcneill MD, [facility] CPT-4: 05934 08/13/2014 ([id number]) 44718 EST. PATIENT, LEVEL IV Diagnosis: LEWY BODY DEMENTIA[ICD9: 331.82] Diagnosis: Psychosis[ICD9: 298.9] Allie Mcneill MD [facility] CPT-4: 29024 06/11/2014 ([id number]) 32216 EST. PATIENT, LEVEL III Diagnosis: Lewy body dementia with behavioral disturbance[ICD9: 331.82] Diagnosis: Ulcer of gingiva[ICD9: 523.8] Shari Mcneill MD, [facility] CPT-4: 06048 04/16/2014 ([id number]) 17454 EST. PATIENT, LEVEL IV Diagnosis: Shingles[ICD9: 053.9] Diagnosis: Oral aphthae[ICD9: 528.2] Diagnosis: Yeast infection of the skin[ICD9: 112.3] Allie Mcneill MD, [facility] CPT-4: 50966 03/12/2014 ([id number]) 92734 EST. PATIENT, LEVEL IV Diagnosis: DEMEN NOS 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[ICD9: 294.20] Diagnosis: LEWY BODY DEMENTIA[ICD9: 331.82] Diagnosis: Impacted cerumen of both ears[ICD9: 380.4] Diagnosis: Weight loss[ICD9: 783.21] Diagnosis: Shingles rash[ICD9: 053.9] Allie Mcneill MD, [facility] CPT- 4: 25544 02/26/2014 ([id number]) 39221 EST. PATIENT, LEVEL IV Diagnosis: SENILE DELUSION[ICD9: 290.20] Diagnosis: LEWY BODY DEMENTIA[ICD9: 331.82] Diagnosis: HALLUCINATIONS[ICD9: 780.1] Diagnosis: PSYCHOSIS[ICD9: 298.9] Allie Mcneill MD, [facility] CPT-4: 80112 11/27/2013 ([id number]) 32766 EST. PATIENT, LEVEL IV Diagnosis: LEWY BODY DEMENTIA[ICD9: 331.82] Diagnosis: HALLUCINATIONS[ICD9: 780.1] Diagnosis: PSYCHOSIS[ICD9: 298.9] Allie Mcneill MD, [facility] CPT-4: 77428 10/16/2013 ([id number]) 26363 EST. PATIENT, LEVEL III Diagnosis: LEWY BODY DEMENTIA[ICD9: 331.82] Diagnosis: HALLUCINATIONS[ICD9: 780.1] Allie Mcneill MD [facility] CPT- 4: 89136 07/10/2013 ([id number]) 12857 EST. PATIENT, LEVEL IV Diagnosis: LEWY BODY DEMENTIA[ICD9: 331.82] Diagnosis: HALLUCINATIONS[ICD9: 780.1] Diagnosis: Dehydration[ICD9: 276.51] Diagnosis: Dementia[ICD9: 294.20] Allie Mcneill MD, [facility] CPT-4: 41494 01/06/2013 64308 EST. PATIENT, LEVEL III Diagnosis: Candidiasis of breast[ICD9: 112.2] Diagnosis: Seborrheic keratosis[ICD9: 702.19] Diagnosis: Dry skin[ICD9: 782.9] Shari Mcneill MD, [facility] CPT-4: 65179 08/08/2012 ([id number]) 46148 EST. PATIENT, LEVEL IV Diagnosis: LEWY BODY DEMENTIA[ICD9: 331.82] Diagnosis: HALLUCINATIONS[ICD9: 780.1] Allie Mcneill MD, [facility] CPT- 4: 29267 05/23/2012 ([id number]) 62657 EST. PATIENT, LEVEL IV Diagnosis: HALLUCINATIONS[ICD9: 780.1] Diagnosis: LEWY BODY DEMENTIA[ICD9: 331.82] Allie Mcneill MD [facility] CPT-4: 83823 04/04/2012 ([id number]) 96624 EST. PATIENT, LEVEL IV Diagnosis: Lewy body dementia with behavioral disturbance[ICD9: 331.82] Diagnosis: Hallucinations[ICD9: 780.1] Diagnosis: INSOMNIA IN OTHER DIS[ICD9: 327.01] Allie Mcneill MD, [facility] CPT-4: 70151 03/21/2012 Plan of Care Planned Activity Notes [...] months 08/16/2017 Appointment: Allie Mcneill WPtel: [phone] [facility] (15 min) Moderate 08/16/2017 Patient Education: Patient [...] level, symptoms. 05/17/2017 Appointment: Allie Mcneill WPtel: [facility] (15 min) Moderate 05/17/2017 Patient Education: Patient [...] at home. 04/25/2017 Appointment: All[facility]ill [facility]Ptel: [facility] [place] (15 min) Moderate 04/25/2017 Patient Education: Patient Medication Summary Completed 04/25/2017 Appointment: Allie Mcneill WPtel: [facility]5 [facility] (15 min) Moderate 04/19/2017 Visit Plan: Dementia [...] Trazodone taper. 03/22/2017 Appointment[phone] ([facility] min) Moderate 03/22/2017 Patient [...] current medications. 12/21/2016 Appointment: Allie Mcneill WPtel: [phone] [facility] (15 min) Moderate 12/21/2016 Patient Education: Patient [...] current medications. 09/21/2016 Appointment: Allie Mcneill WPtel: [facility]5 [facility] (15 min) Moderate 09/21/2016 Patient Education: Patient [...] medications. 06/22/2016 Appointment: Allie Mcneill WPtel: [phone] [facility] (15 min) Moderate 06/22/2016 Patient Education: Patient [...] underlying psychosis. 03/23/2016 Appointment: [phone] (15 min) Moderate 03/23/2016 Patient [...] problem. 12/16/2015 Appointment: [phone] (15 min) Moderate 12/16/2015 Patient [...] to medications 09/16/2015 Appointment: Allie Mcneill WPtel: [phone] [id number] ([facility] min[facility] Moderate 09/16/2015 Patient [...] underlying psychosis. 07/01/2015 Appointment: Allie Mcneill WPtel: [phone] [facility] Follow [facility] 07/01/2015 Patient Education: [...] 1 month then stop the Marinol as [facility] has had resolution of her weight loss. [...] -start casi 11/19/2014 Appointment: Allie Mcneill WPtel: [phone] [facility] Follow up 11/19/2014 Patient Education: Patient Medication Summary Completed 11/19/2014 Appointment: Allie Mcneill WPtel: [phone] [facility] [place] Follow up 11/12/2014 Appointment: Allie Mcneill WPtel: [phone] [facility] Follow up 09/10/2014 Visit Plan: Hyperlipidemia - [...] for effectiveness. 08/13/2014 Appointment: All[facility] Mcneill WPtel: [phone] [facility] Follow up 08/13/2014 Patient Education: Patient Medication [...] this time. 06/11/2014 Appointment: Allie Mcneill WPtel: [address] [place], [place] [phone] [place] Follow up 06/11/2014 Patient Education: Patient [...] 10 days. 03/12/2014 Appointment: Allie Mcneill WPtel: [address] [place], [place] [phone] [place] Follow up 03/12/2014 Patient Education: Patient [...] considered contagious. 02/26/2014 Appointment: Allie Mcneill WPtel: [facility] Follow up 02/26/2014 Patient Education: Patient Medication Summary Completed 02/26/2014 Appointment: Allie Mcneill WPtel: [address] [place], [place] [id number] [place] Follow up 02/04/2014 Appointment: Allie Mcneill WPtel: [address] [place], [place] [phone] [place] Follow up 01/19/2014 Visit Plan: Dementia with [...] HELP AUGMENT PATIENT' S COMFORT AT THE [facility]. 11/27/2013 Appointment: Allie Mcneill WPtel: [address] [place], [place] [phone] [place] Follow up 11/27/2013 Patient Education: Patient Medication [...] not improve. 10/16/2013 Appointment: Allie Mcneill WPtel: [address] [place], [place] [id number] [place] Follow up 10/16/2013 Patient Education: Patient Medication Summary Completed 10/16/2013 Appointment: Shari Parada WPtel: [address] [place], [place] [id number] [place] Lab Draw 07/31/2013 Patient Education: Patient Medication Summary Completed 07/31/2013 Appointment: Allie Mcneill WPtel: [address] [place] [id number] [place] Lab Draw 07/30/2013 Visit Plan: Lewy body dementia - symptoms improved on higher dose of risperdol - continue to monitor symptoms - family to call if hallucinations worsen again. 07/10/2013 Appointment: All[facility] Mcneill WPtel: [phone] [facility] Follow up 07/10/2013 Patient Education: [...] for effecitveness. 06/12/2013 Appointment: Allie Mcneill WPtel: [phone] [facility] Follow up 06/12/2013 Patient Education: Patient Medication [...] to medications. 02/13/2013 Appointment: All[facility] Mcneill WPtel: [phone] [facility] [place] Follow up 02/13/2013 Patient Education: Patient Medication [...] check UA. 01/06/2013 Appointment: Allie Mcneill WPtel: [phone] [facility] Follow up 01/06/2013 Patient Education: Patient Medication [...] check UA. 09/19/2012 Appointment: Allie Mcneill WPtel: [phone] [facility] Established Patient Preventative visit 09/19/2012 Patient Education: Patient Medication Summary Completed 09/19/2012 Visit Plan: Candidiasis of breasts-discussed natural and expected course of this diagnosis and to alert me if sympotms do not follow expected course, or if any worse. Keep areas clean and dry. RX sent to patient' s pharmacy and instructed on use. Seborrheic fvhosgood-vqdmlgx-ewboonnym eucerin cream as needed to back Dry tige-pmdv-onvpwicgb moisturizer such as eucerin to face-call if worsens 08/08/2012 Appointment: Shari Parada WPtel: [phone] [phone] [place] rash 08/08/2012 Patient Education: Patient Medication Summary Completed 08/08/2012 Appointment: Allie Mcneill WPtel: [phone] [facility] Injection 07/25/2012 Patient Education: Patient Medication Summary [...] her rest. 05/23/2012 Appointment: Allie Mcneill WPtel: [phone] [facility] [place] Follow up 05/23/2012 Patient Education: Patient Medication Summary Completed 05/23/2012 Appointment: [phone] [place] Lab Draw 04/05/2012 Patient Education: Patient Medication [...] dosing regimen. 04/04/2012 Appointment: Allie Mcneill WPtel: [phone] [facility] [place] Follow up 04/04/2012 Patient Education: Patient Medication Summary Completed 04/04/2012 Visit Plan: Lewy Body Dementia - pt has been having hallucinations, auditory, visual, gustatory, she was recently in the hospital, then was transfered to a geriatric psychiatric facility in [place] for inpatient psych treatment. She was discharged [...] are opened. 03/21/2012 Appointment: Allie Mcneill WPtel: [facility] [facility] Patient 03/21/2012 Patient Education: [...] 1 month then stop the Marinol as [place] [facility] has had resolution of her weight loss. [...] TO HELP AUGMENT PATIENT'S COMFORT AT THE [facility]. . Hypertension - well controlled - continue [...] assure normal liver response to medications . Psychosis - increase Risperdal to 0.5mg bid Hypertension - well controlled - continue with current medications, continue with no added salt diet. Pt has been encouraged to exercise daily. The pt has been advised to call the office if there are any acute concerns about change in blood pressure readings at home. REMOVE UPPER AND LOWER DENTURES FOR THE [...] of plan. . Lewy Body Dementia - Pt with [...] with depakote, monitor depakote level, symptoms. . Hyperlipidemia - pt has been counseled [...] of Risperdal for her underlying psychosis. . Lewy Body Dementia - pt has been having hallucinations, auditory, visual, gustatory, she was recently in the hospital, then was transfered to a geriatric psychiatric facility in [place] for inpatient psych treatment. She was discharged [...] when the home doors are opened. . Candidiasis of breasts-discussed natural and expected course of this diagnosis and to alert me if sympotms do not follow expected course, or if any worse. Keep areas clean and dry. RX sent to patient's pharmacy and instructed on use. Seborrheic tflhjkqlc-qitlier-pbyuhmohe eucerin cream as needed to back Dry szlt-ruta-cnuhkmeik moisturizer such as eucerin to face-call if worsens . Hyperlipidemia - pt has been counseled [...] situational exposure. No change in current medications. Shingles - healing well. Oral apthae - [...] allergies with nasal drainage -start casi . Psychosis - increase Risperdal to 0.5mg bid Hypertension - well controlled - continue with current medications, continue with no added salt diet. Pt has been encouraged to exercise daily. The pt has been advised to call the office if there are any acute concerns about change in blood pressure readings at home. . Dementia with Behaviors - I have [...] in the afternoon disturbances of her rest. . Lewy body Dementia - Pt with [...] monitor the medications for effecitveness. . Lewy Body Dementia - pt with [...] pt is to be considered contagious. . Hyperlipidemia - pt has been counseled [...] for effectiveness. . Lewy Body Dementia - Pt with [...] Ammens powder. Dysuria - check UA. . Lewy Body's Dementia - Pt with [...] her labs. Dysuria - check UA. . Hyperlipidemia - [...]
--- OUTSIDE RECORDS SUMMARY | 2018-01-02 19:41 | XMS REPORT | CCD ---
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 Name Role Phone PP Unavailable CCM Unavailable Summary Purpose Interface Exchange Insurance Providers Payer name Policy type / Coverage type Covered green party ID Effective Begin Date Effective End Date HUMANA CLAIMS Commercial Insurance [id number] Unknown Family history Daughter Diagnosis Age At [...] Codes Description Effective Dates Living arrangements Unknown [facility] 12/21/2016 Marital status Unknown 03/21/2012 Number of children Unknown 5 03/21/[address]: 058411334 Nonsmoker 03/21/[address]: 099339945 Never drinks alcohol 03/21/2012 Allergies, Adverse Reactions, [...] Exelon Patch 9.5 mg/24 hr transdermal RxNorm: 509467 APPLY ONE (1) PATCH ONCE DAILY. 10/19/2017 No Stop Date Active Depakote 500 mg tablet,delayed release RxNorm: 2199994 1 Tablet(s) PO daily 10/15/2017 10/09/2018 Active Protonix 20 mg tablet,delayed release RxNorm: 091309 TAKE 1 TABLET BY MOUTH DAILY 08/06/2017 03/03/2018 Active Generic For:*PROTONIX 20MG 08/06/2017 2:35:53 PM Ativan 0.5 mg tablet RxNorm: 683701 1/2 Tablet(s) PO Q6 PRN as needed 1/2 po q 2 pm 08/02/2017 09/30/2017 Inactive Depakote 500 mg tablet,delayed release RxNorm: 4081097 1 Tablet(s) PO daily 06/22/2017 10/14/2017 Inactive Exelon Patch 9.5 mg/24 hr transdermal RxNorm: 352309 APPLY ONE (1) PATCH ONCE DAILY. 05/14/2017 10/10/2017 Inactive Protonix 20 mg tablet,delayed release RxNorm: 858674 1 Tablet(s) PO daily 05/08/2017 08/05/2017 Inactive Risperdal 0.25 mg tablet RxNorm: 819752 Tablet(s) UD .25 in am and .5 in hs and .25 prn for psychosis/hallucinations 04/26/2017 05/16/2017 Inactive Nuedexta 20 mg-10 mg capsule RxNorm: 7701449 1 Capsule(s) PO daily x 7 days then go to one cap BID 03/22/2017 04/24/2017 Inactive Ativan 0.5 mg tablet RxNorm: 335595 1/2 Tablet(s) PO Q6 PRN as needed 1/2 po q 2 pm 03/21/2017 08/01/2017 Inactive Keflex 500 mg capsule RxNorm: 295882 1 Capsule(s) PO TID 201603/05/2017 Inactive Keflex 500 mg capsule RxNorm: 396439 1 Capsule(s) PO TID 201603/15/2017 Inactive Ativan 0.5 mg tablet RxNorm: 735051 1/2 Tablet(s) PO Q6 PRN as needed 1/2 po q 2 pm 02/28/2017 03/20/2017 Inactive Protonix 20 mg tablet,delayed release RxNorm: 532409 1 Tablet(s) PO daily 02/07/2017 05/07/2017 Inactive Protonix 20 mg tablet,delayed release RxNorm: 297864 1 Tablet(s) PO daily 02/07/2017 02/06/2017 Inactive amoxicillin 500 mg capsule RxNorm: 331211 1 Capsule(s) PO TID 01/11/2017 01/10/2017 Inactive Patient at [facility] amoxicillin 500 mg capsule RxNorm: 594971 1 Capsule(s) PO TID 01/11/2017 01/17/2017 Inactive Patient at [facility] Exelon Patch 9.5 mg/24 hr transdermal RxNorm: 463673 APPLY ONE (1) PATCH ONCE DAILY. 12/14/2016 05/12/2017 Inactive Flonase 50 mcg/actuation nasal spray,suspension RxNorm: 8495295 1 [place] each nostril NASAL BID 10/30/2016 11/28/2016 Inactive 2 spray each nostril Namenda 10 mg tablet RxNorm: 723493 1 Tablet(s) PO BID 201609/04/2017 Inactive Risperdal 0.25 mg tablet RxNorm: 692840 1 Tablet(s) PO QHS 01/22/2017 Inactive trazodone 50 mg tablet RxNorm: 414665 1.5 Tablet(s) PO QHS 03/29/2017 Inactive Exelon Patch 9.5 mg/24 hr transdermal RxNorm: 700755 APPLY ONE (1) PATCH ONCE DAILY. 07/18/2016 12/13/2016 Inactive trazodone 50 mg tablet RxNorm: 357441 1.5 Tablet(s) PO QHS 09/24/2016 Inactive Exelon Patch 9.5 mg/24 hr transdermal RxNorm: 592614 APPLY ONE (1) PATCH ONCE DAILY. 05/15/2016 05/14/2016 Inactive Exelon Patch 9.5 mg/24 hr transdermal RxNorm: 957475 APPLY ONE (1) PATCH ONCE DAILY. 05/15/2016 10/18/2017 Inactive Risperdal 0.25 mg tablet RxNorm: 680313 1 Tablet(s) PO QHS 11/201509/24/2016 Inactive Exelon Patch 9.5 mg/24 hr transdermal RxNorm: 915229 APPLY ONE (1) PATCH ONCE DAILY. 2016 No Stop Date Active Exelon Patch 9.5 mg/24 hr transdermal RxNorm: 682174 APPLY ONE (1) PATCH ONCE DAILY. 2016 02/21/2016 Inactive trazodone 50 mg tablet RxNorm: 948921 1.5 Tablet(s) PO QHS 01/201605/28/2016 Inactive simvastatin 20 mg tablet RxNorm: 246067 1 Tablet(s) PO daily 01/31/2017 Inactive clopidogrel 75 mg tablet RxNorm: 397870 1 Tablet(s) PO daily 01/31/2017 Inactive Celexa 20 mg tablet RxNorm: 553610 1 Tablet(s) PO daily 201501/31/2017 Inactive [place] Instant Breakfast Juice Drink oral liquid RxNorm: PO QHS after meals 02/02/2016 12/20/2016 Inactive Flonase 50 mcg/actuation nasal spray,suspension RxNorm: 3796281 1 [place] each nostril NASAL BID 12/02/2015 03/30/2016 Inactive 2 spray each nostril Namenda 10 mg tablet RxNorm: 794605 1 Tablet(s) PO BID 201510/06/2016 Inactive Risperdal 0.25 mg tablet RxNorm: 641264 1 Tablet(s) PO QHS 02/29/2016 Inactive Exelon Patch 9.5 mg/24 hr transdermal RxNorm: 619098 1 Patch TD daily 1 Patch TD daily 07/23/2015 01/18/2016 Inactive Exelon Patch 9.5 mg/24 hr transdermal RxNorm: 433426 1 Patch TD daily 07/20/2015 07/22/2015 Inactive Celexa 20 mg tablet RxNorm: 109494 1 Tablet(s) PO daily 201402/06/2016 Inactive Flonase 50 mcg/actuation nasal spray,suspension RxNorm: 173322 1 [place] each nostril NASAL BID 06/04/2015 10/01/2015 Inactive 2 spray each nostril Risperdal 0.25 mg tablet RxNorm: 905142 1 Tablet(s) PO QHS 08/01/2015 Inactive Exelon Patch 9.5 mg/24 hr transdermal RxNorm: 396721 1 Patch TD daily 04/28/2015 07/19/2015 Inactive Vitamin D3 2,000 unit capsule RxNorm: 255944 1 Capsule(s) PO daily 02/10/2015 03/15/2016 Inactive Calcium 600 + D(3) 600 mg (1,500 mg)-400 unit tablet RxNorm: 259581 1 Tablet(s) PO daily 02/09/2015 No Stop Date Active Celexa 20 mg tablet RxNorm: 469862 1 Tablet(s) PO daily 201412/09/2014 Inactive Celexa 20 mg tablet RxNorm: 843133 1 Tablet(s) PO daily 201407/07/2015 Inactive Flonase 50 mcg/actuation nasal spray,suspension RxNorm: 506286 1 [place] each nostril NASAL BID 11/27/2014 03/26/2015 Inactive 2 spray each nostril Casi Allergy 180 mg tablet RxNorm: 285513 1 Tablet(s) PO daily 11/19/2014 12/18/2014 Inactive Marinol 2.5 mg capsule RxNorm: 502564 1 Capsule(s) PO TID 11/1603/15/2015 Inactive [SAVINGS FOR UNINSURED PATIENTS -- BIN:[id number], PCN: [id number], Group: [id number], ID# [id number], Process claim through [employer], for questions: . THIS IS NOT INSURANCE.] Namenda 10 mg tablet RxNorm: 883831 1 Tablet(s) PO BID 201402/08/2015 Inactive Marinol 2.5 mg capsule RxNorm: 070841 1 Capsule(s) PO TID 10/1211/10/2014 Inactive Namenda 10 mg tablet RxNorm: 611989 1 Tablet(s) PO BID 201410/11/2014 Inactive Flonase 50 mcg/actuation nasal spray,suspension RxNorm: 387629 2 [place] NASAL BID 08/17/2014 11/26/2014 Inactive 2 spray each nostril Exelon Patch 9.5 mg/24 hr transdermal RxNorm: 061951 1 Patch TD daily 07/10/2014 10/07/2014 Inactive Risperdal 0.25 mg tablet RxNorm: 043003 1 Tablet(s) PO QHS 05/201405/03/2015 Inactive Namenda XR 14 mg capsule sprinkle,ER 24hr RxNorm: 266223 1 Capsule(s) PO daily 04/13/2014 10/11/2014 Inactive acyclovir 800 mg tablet RxNorm: 708547 1 Tablet(s) PO TID 03/1203/18/2014 Inactive nystatin 100,000 unit/gram topical powder RxNorm: 257437 1 Gram(s) TOP QID apply to tissue under breasts and if needed other folded skin ears with evidence of yeast infection 03/12/2014 03/21/2014 Inactive simvastatin 20 mg tablet RxNorm: 717391 1 Tablet(s) PO daily 02/15/2014 Inactive trazodone 50 mg tablet RxNorm: 800782 1 1/2 Tablet(s) PO daily 02/16/2014 02/15/2014 Inactive trazodone 50 mg tablet RxNorm: 874120 1 1/2 Tablet(s) PO daily 02/16/2014 03/17/2014 Inactive clopidogrel 75 mg tablet RxNorm: 928400 1 Tablet(s) PO daily 02/10/2015 Inactive Exelon 4.6 mg/24 hour transdermal 24 hour patch RxNorm: 970547 1 TD daily 02/16/2014 03/17/2014 Inactive simvastatin 20 mg tablet RxNorm: 716603 1 Tablet(s) PO daily 06/15/2014 Inactive Vitamin B-12 2,500 mcg sublingual tablet RxNorm: 668223 1 Tablet(s) SL daily 01/22/2014 No Stop Date Active Ativan 0.5 mg tablet RxNorm: 535112 1/2 Tablet(s) PO Q6 PRN 1/2 po q 2 pm and 1 po q 6 hours prn anxiety 10/16/20132013 Inactive Cipro 500 mg tablet RxNorm: 508990 1 Tablet(s) PO BID correction 08/04/2013 08/08/2013 Inactive Cipro 500 mg tablet RxNorm: 998408 2 Tablet(s) PO BID 201208/03/2013 Inactive Cipro 500 mg tablet RxNorm: 463691 2 Tablet(s) PO BID 201207/31/2013 Inactive Influenza Virus Vaccine 0.5 mL RxNorm: IM 07/07/2013 07/07/2013 Inactive clopidogrel 75 mg tablet RxNorm: 386844 1 Tablet(s) PO daily 02/15/2014 Inactive risperidone 0.5 mg tablet RxNorm: 646977 1 Tablet(s) PO TID 01/21/2014 Inactive atorvastatin 20 mg tablet RxNorm: 430392 1 Tablet(s) PO QPM 01/21/2014 Inactive TAKE ONE TABLET BY MOUTH EVERY DAY risperidone 0.5 mg tablet RxNorm: 920300 1 Tablet(s) PO TID 02/201306/24/2013 Inactive Risperdal 0.25 mg tablet RxNorm: 518048 Tablet(s) PO TAKE 1 TABLET AT NOON AND TAKE 1 TABLET AT NIGHT IF NEEDED FOR HALLUCINATIONS 201206/11/2013 Inactive clopidogrel 75 mg tablet RxNorm: 512645 1 Tablet(s) PO daily 06/24/2013 Inactive Risperdal 0.25 mg tablet RxNorm: 644021 1 Tablet(s) PO noon one at noon and one in night if needed for hallucinations. 09/06/2012 01/01/2013 Inactive atorvastatin 20 mg tablet RxNorm: 496995 1 Tablet(s) PO QPM 06/24/2013 Inactive TAKE ONE TABLET BY MOUTH EVERY DAY risperidone 0.5 mg tablet RxNorm: 166700 1 Tablet(s) PO BID 06/11/2013 Inactive atorvastatin 20 mg tablet RxNorm: 611918 Tablet(s) PO 201109/05/2012 Inactive TAKE ONE TABLET BY MOUTH EVERY DAY nystatin 100,000 unit/g Topical Powder RxNorm: 997000 1 Gram(s) TOP BID 08/08/2012 08/27/2012 Inactive atorvastatin 20 mg tablet RxNorm: 720212 Tablet(s) PO 201108/11/2012 Inactive TAKE ONE TABLET BY MOUTH EVERY DAY risperidone 0.5 mg tablet RxNorm: 588383 1 Tablet(s) PO BID 03/201207/12/2012 Inactive Risperdal 0.25 mg tablet RxNorm: 689518 1 Tablet(s) PO noon one at noon and one in night if needed for hallucinations. 06/13/2012 09/05/2012 Inactive clopidogrel 75 mg tablet RxNorm: 993387 1 Tablet(s) PO daily 09/05/2012 Inactive atorvastatin 20 mg tablet RxNorm: 751710 1 Tablet(s) PO daily 05/10/2012 06/08/2012 Inactive Cipro 500 mg Tab RxNorm: 806860 1 Tablet(s) PO BID 201104/11/2012 Inactive Risperdal 0.25 mg tablet RxNorm: 764770 1 Tablet(s) PO noon one at noon and one in night if needed for hallucinations. 03/22/2012 06/12/2012 Inactive Risperdal 0.25 mg Tab RxNorm: 546392 1 Tablet(s) PO noon one at noon and one in night if needed for hallucinations. 03/21/2012 03/21/2012 Inactive Vitamin D3 2,000 unit tablet RxNorm: 789256 1 Tablet(s) PO daily No Start Date Active Protonix 20 mg tablet,delayed release RxNorm: 057635 1 Tablet(s) PO daily No Start Date Active losartan 50 mg tablet RxNorm: 771371 1 Tablet(s) PO daily No Start Date Active Vitamin B-12 500 mcg tablet RxNorm: 338633 1 Tablet(s) PO daily No Start Date Active lorazepam 0.5 mg tablet RxNorm: 646688 1 Tablet(s) PO daily No Start Date Active melatonin 3 mg tablet RxNorm: 899388 2 Tablet(s) PO QHS No Start Date Active Tylenol 500 mg RxNorm : 1 -2 Tablet(s) PO Q6 as needed pain or fever No Start Date Active Vitamin D3 2,000 unit capsule RxNorm: 098858 1 Capsule(s) PO daily No Start Date 02/09/2015 Inactive trazodone 50 mg tablet RxNorm: 856768 1.5 Tablet(s) PO QHS No Start Date 02/08/2016 Inactive Trazadone 25 mg RxNorm : 3 PO QHS No Start Date 02/15/2014 Inactive [place] Instant Breakfast Juice Drink oral liquid RxNorm: PO TID after meals No Start Date 02/01/2016 Inactive Vitamin B-12 2,500 mcg sublingual tablet RxNorm: 160052 1 Tablet(s) SL daily No Start Date 01/21/2014 Inactive Tums Calcium for Life Bone 300 mg (750 mg) chewable tablet RxNorm: 949979 2 Tablet (s) PO daily No Start Date 02/12/2013 Inactive calcium 300 mg chewable tablet RxNorm: 1 Tablet(s) PO daily No Start Date 12/03/2015 Inactive with vitamin d Marinol 2.5 mg capsule RxNorm: 951444 1 Capsule(s) PO ac tid No Start Date 03/11/2014 Inactive Namenda XR 14 mg capsule sprinkle,ER 24hr RxNorm: 415753 1 Capsule(s) PO daily No Start Date 04/12/2014 Inactive clopidogrel 75 mg tablet RxNorm: 286770 1 Tablet(s) PO daily No Start Date 05/09/2012 Inactive Namenda 5 mg Tab RxNorm: 108419 1 Tablet(s) PO BID No Start Date 04/12/2014 Inactive Depakote 500 mg tablet,delayed release RxNorm: 1264563 1 Tablet(s) PO daily No Start Date 06/21/2017 Inactive Zocor 20 mg tablet RxNorm: 601609 1 Tablet(s) PO daily No Start Date 08/12/2014 Inactive Depakote ER 250 mg tablet,extended release RxNorm: 3797973 1 Tablet(s) PO BID No Start Date 12/31/2013 Inactive Calcium 600 + D(3) oral RxNorm: 471968 oral No Start Date 02/08/2015 Inactive risperidone 0.5 mg tablet RxNorm: 105763 1 Tablet(s) PO BID No Start Date 06/12/2012 Inactive atorvastatin 20 mg tablet RxNorm: 932505 1 Tablet(s) PO daily No Start Date 05/09/2012 Inactive Flonase 50 mcg/actuation nasal spray,suspension RxNorm: 518501 2 [place] NASAL BID No Start Date 08/16/2014 Inactive 2 spray each nostril Exelon 4.6 mg/24 hour transdermal 24 hour patch RxNorm: 304626 1 TD daily No Start Date 02/15/2014 [...] for immunization ICD-10: Z23 ICD-9: V03.82 09/16/2015 HYPERLIPIDEMIA ICD-9: 272.4 07/01/2015 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 DEMEN NOS 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 ICD-9: 294.20 VACCIN FOR INFLUENZA ICD-9: V04.81 2014 Psychosis ICD-9: 298.9 06/11/2014 Ulcer of [...] depression 06/11/2014 skin lesion 04/16/2014 reported by [facility] skin lesion 03/12/2014 weight loss 02/26/2014 medication follow up 11/27/2013 anxiety 10/16/2013 memory loss 07/10/2013 --Improved vaccination against influenza 07/07/2013 memory loss 06/12/2013 hallucination 02/13/2013 hallucination 01/06/2013 rash 09/19/2012 skin lesion 08/08/2012 vaccination against influenza 07/25/2012 memory loss 05/23/2012 hallucination 04/04/2012 dementia memory loss 03/21/2012 Results Observation Observation Code Item Item Code Result Date Hepatic Zip641 ALBUMIN 3.8 g/dL 09/20/2017 Hepatic Sra495 TPRO 6.3 g/dL 09/20/2017 Hepatic Wvb911 GLOB 2.5 g/dL 09/20/2017 Hepatic Lnd701 A/G Ratio 1.5 Ratio 09/20/2017 Hepatic Put544 ALK PHOS 67 U/L 09/20/2017 Hepatic Wse273 ALT(SGPT) 5 U/L 09/20/2017 Hepatic Oyu825 AST(SGOT) 11 U/L 09/20/2017 Hepatic Ssd244 BILI T 0.4 mg/dL 09/20/2017 Hepatic Wut966 BILI D 0.1 mg/dL 09/20/2017 Hepatic Ttt271 BILI I 0.3 mg/dL 09/20/2017 Valproic Acid Jyk568 VALPROIC 10.0 ug/ml 09/20/2017 Valproic Acid Itr873 VALPROIC 44.0 ug/ml 08/23/2017 Hepatic Dna154 ALBUMIN 3.5 g/dL 08/23/2017 Hepatic Zck385 TPRO 6.1 g/dL 08/23/2017 Hepatic Zhk339 GLOB 2.6 g/dL 08/23/2017 Hepatic Aez171 A/G Ratio 1.4 Ratio 08/23/2017 Hepatic Adh179 ALK PHOS 63 U/L 08/23/2017 Hepatic Uxf974 ALT(SGPT) 5 U/L 08/23/2017 Hepatic Bfz564 AST(SGOT) 9 U/L 08/23/2017 Hepatic Yie237 BILI T 0.3 mg/dL 08/23/2017 Hepatic Psq160 BILI D 0.1 mg/dL 08/23/2017 Hepatic Qwl508 BILI I 0.2 mg/dL 08/23/2017 Hepatic Qta561 ALBUMIN 3.5 g/dL 07/23/2017 Hepatic Vlc244 TPRO 5.9 g/dL 07/23/2017 Hepatic Dvl957 GLOB 2.4 g/dL 07/23/2017 Hepatic Gai458 A/G Ratio 1.5 Ratio 07/23/2017 Hepatic Apr545 ALK PHOS 61 U/L 07/23/2017 Hepatic Gle899 ALT(SGPT) 6 U/L 07/23/2017 Hepatic Xdv144 AST(SGOT) 11 U/L 07/23/2017 Hepatic Kfx015 BILI T 0.3 mg/dL 07/23/2017 Hepatic Gzo822 BILI D 0.1 mg/dL 07/23/2017 Hepatic Svm345 BILI I 0.2 mg/dL 07/23/2017 Valproic Acid Xse162 VALPROIC 37.0 ug/ml 07/23/2017 Hepatic Sqt016 ALBUMIN 3.6 g/dL 06/26/2017 Hepatic Qog236 TPRO 6.0 g/dL 06/26/2017 Hepatic Wgv475 GLOB 2.4 g/dL 06/26/2017 Hepatic Daa306 A/G Ratio 1.5 Ratio 06/26/2017 Hepatic Nei608 ALK PHOS 64 U/L 06/26/2017 Hepatic Giq564 ALT(SGPT) 8 U/L 06/26/2017 Hepatic Avl553 AST(SGOT) 11 U/L 06/26/2017 Hepatic Rtm184 BILI T 0.3 mg/dL 06/26/2017 Hepatic Hkj709 BILI D 0.1 mg/dL 06/26/2017 Hepatic Jpk809 BILI I 0.2 mg/dL 06/26/2017 Valproic Acid Kgy437 VALPROIC 45.0 ug/ml 06/26/2017 Comp Metabolic Tfd171 NA 140 mEq/L 05/18/2017 Comp Metabolic Isv239 K 4.2 mEq/L 05/18/2017 Comp Metabolic Tvd019 CL 103 mEq/L 05/18/2017 Comp Metabolic Tqu511 CO2 27.0 mEq/L 05/18/2017 Comp Metabolic Sld536 ANION GAP 14 05/18/2017 Comp Metabolic Bwx191 GLUCOSE 85 mg/dL 05/18/2017 Comp Metabolic Ybf903 Creat 0.6 mg/dL 05/18/2017 Comp Metabolic Buq696 eGFR 109 ml/min/1.73m2 05/18/2017 Comp Metabolic Bpo184 BUN 8 mg/dL 05/18/2017 Comp Metabolic Wxo155 B/C Ratio 14.3 Ratio 05/18/2017 Comp Metabolic Bfq831 CALCIUM 8.6 mg/dL 05/18/2017 Comp Metabolic Tol165 ALK PHOS 85 U/L 05/18/2017 Comp Metabolic Luw800 AST(SGOT) 10 U/L 05/18/2017 Comp Metabolic Bef880 ALT(SGPT) 6 U/L 05/18/2017 Comp Metabolic Qkf415 BILI T 0.4 mg/dL 05/18/2017 Comp Metabolic Zut387 ALBUMIN 3.7 g/dL 05/18/2017 Comp Metabolic Jmk940 TPRO 6.3 g/dL 05/18/2017 Comp Metabolic Lsa445 GLOB 2.6 g/dL 05/18/2017 Comp Metabolic Jhi667 A/G Ratio 1.4 Ratio 05/18/2017 Comp Metabolic Oig458 Osmo 277 mOsmo 05/18/2017 Bili D Ord93 BILI D 0.1 mg/dL 05/18/2017 Bili D Ord93 BILI I 0.3 mg/dL 05/18/2017 Valproic Acid Ylj545 VALPROIC 27.0 ug/ml 05/18/2017 Urinalysis Ord28 U-Color [...] 04/11/2017 Urinalysis Ord28 U-Yeast NEGATIVE 04/11/2017 A1C 1912554 A1C HPLC 71297-5 5.9 % 07/08/2013 CBC 2137972 WBC 8.9 10e9/L 07/07/2013 CBC 8826573 RBC 4.27 10e12/L 07/07/2013 CBC 9424636 HGB 12.7 g/dL 07/07/2013 CBC 1809648 HCT DET 39.0 % 07/07/2013 CBC 3951113 MCV 91.3 fL 07/07/2013 CBC 4912155 MCH 29.7 pg 07/07/2013 CBC 2750752 MCHC 32.6 g/dL 07/07/2013 CBC 1090799 PLT 273 10e9/L 07/07/2013 CBC 4252643 MPV 11.0 fL 07/07/2013 CBC 6051112 TORREY % 69.1 % 07/07/2013 CBC 7407022 LY % 19.6 % 07/07/2013 CBC 8465219 MON % 8.5 % 07/07/2013 CBC 9471232 EOS % 2.6 % 07/07/2013 CBC 3154134 BASO % 0.2 % 07/07/2013 CBC 1656390 RDW 13.0 % 07/07/2013 CBC 5756315 ABS TORREY 6.15 10e9/L 07/07/2013 CBC 5239426 ABS LYMPH 1.74 10e9/L 07/07/2013 CBC 0228012 ABS MONO 0.76 10e9/L 07/07/2013 CBC 6921059 ABS EOS 0.23 10e9/L 07/07/2013 CBC 2811837 ABS BASO 0.02 10e9/L 07/07/2013 CBC 3281159 RDW-SD 42.3 fL 07/07/2013 GFR CALC 5148486 GFR AA >60 ML/MIN 07/07/2013 GFR CALC 1221969 GFR NON-AA >60 ML/MIN 07/07/2013 CHEM 14 1989058 AST 14 U/L 07/07/2013 CHEM 14 0909389 ALT 10 IU/L 07/07/2013 CHEM 14 2908691 BUN 11 MG/DL 07/07/2013 CHEM 14 5935857 ALBUMIN 4.1 GM/DL 07/07/2013 CHEM 14 3377405 CHLORIDE 107 MMOL/L 07/07/2013 CHEM 14 1212640 BILI TOT 0.4 MG/DL 07/07/2013 CHEM 14 3511161 ALK PHOS 54 U/L 07/07/2013 CHEM 14 6995557 SODIUM 141 MMOL/L 07/07/2013 CHEM 14 3728674 CREATININE 0.70 MG/DL 07/07/2013 CHEM 14 7303431 CALCIUM 9.0 MG/DL 07/07/2013 CHEM 14 2564046 POTASSIUM 4.2 MMOL/L 07/07/2013 CHEM 14 9038574 PROT TOT 6.5 GM/DL 07/07/2013 CHEM 14 8569229 GLUCOSE 102 MG/DL 07/07/2013 CHEM 14 4259568 BICARB 28 MMOL/L 07/07/2013 CHEM 14 1718507 ANION GAP 6 MEQ/L 07/07/2013 LIPID GRP HDL TEST 47 MG/DL 07/07/2013 LIPID GRP TRIG 121 MG/DL 07/07/2013 LIPID GRP TEST LDL 63 MG/DL 07/07/2013 LIPID GRP CHOL 134 MG/DL 07/07/2013 LIPID GRP RCHOL/HDL 2.85 RATIO 07/07/2013 CHEM 14 6866302 AST 14 U/L 01/06/2013 CHEM 14 8444094 ALT 12 IU/L 01/06/2013 CHEM 14 7480892 BUN 9 MG/DL 01/06/2013 CHEM 14 6893640 ALBUMIN 4.2 GM/DL 01/06/2013 CHEM 14 3751679 CHLORIDE 108 MMOL/L 01/06/2013 CHEM 14 4937778 BILI TOT 0.4 MG/DL 01/06/2013 CHEM 14 0991726 ALK PHOS 74 U/L 01/06/2013 CHEM 14 9419394 SODIUM 142 MMOL/L 01/06/2013 CHEM 14 4434845 CREATININE 0.62 MG/DL 01/06/2013 CHEM 14 4496665 CALCIUM 9.0 MG/DL 01/06/2013 CHEM 14 4725634 POTASSIUM 4.3 MMOL/L 01/06/2013 CHEM 14 6125976 PROT TOT 6.6 GM/DL 01/06/2013 CHEM 14 5078080 GLUCOSE 94 MG/DL 01/06/2013 CHEM 14 4808788 BICARB 25 MMOL/L 01/06/2013 CHEM 14 6453540 ANION GAP 9 MEQ/L 01/06/2013 CBC 2249976 WBC 7.2 10e9/L 01/06/2013 CBC 3129284 RBC 4.22 10e12/L 01/06/2013 CBC 3205867 HGB 12.6 g/dL 01/06/2013 CBC 7939890 HCT DET 38.3 % 01/06/2013 CBC 9789801 MCV 90.8 fL 01/06/2013 CBC 1466612 MCH 29.9 pg 01/06/2013 CBC 4700987 MCHC 32.9 g/dL 01/06/2013 CBC 2245941 PLT 287 10e9/L 01/06/2013 CBC 9060614 MPV 11.0 fL 01/06/2013 CBC 4894183 TORREY % 68.0 % 01/06/2013 CBC 6751101 LY % 21.6 % 01/06/2013 CBC 9212225 MON % 9.0 % 01/06/2013 CBC 2787598 EOS % 1.3 % 01/06/2013 CBC 7661121 BASO % 0.1 % 01/06/2013 CBC 6532850 RDW 13.3 % 01/06/2013 CBC 3917983 ABS TORREY 4.90 10e9/L 01/06/2013 CBC 5052743 ABS LYMPH 1.56 10e9/L 01/06/2013 CBC 5491761 ABS MONO 0.65 10e9/L 01/06/2013 CBC 1582503 ABS EOS 0.09 10e9/L 01/06/2013 CBC 1062896 ABS BASO 0.01 10e9/L 01/06/2013 CBC 7414738 RDW-SD 43.0 fL 01/06/2013 VIT B 12 8258854 VIT B 12 >2000 PG/ML 01/06/2013 TSH 5855637 TSH 1.814 uIU/ML 01/06/2013 FREE T4 6070240 FREE T4 1.19 NG/DL 01/06/2013 GFR CALC 0628306 GFR AA >60 ML/MIN 01/06/2013 GFR CALC 7007840 GFR NON-AA >60 ML/MIN 01/06/2013 URINALYSIS NONAUTO W/O SCOPE 33866 Specific [place] 1.020 DateTime(Free Text in Aprima) URINALYSIS NONAUTO W/O SCOPE 97836 PH 6.0 DateTime(Free Text in Aprima) URINALYSIS NONAUTO W/O SCOPE 55340 GLUCOSE negative DateTime(Free Text in [employer]) URINALYSIS NONAUTO W/O SCOPE 41796 Protein negative DateTime(Free Text in Apr[employer]) URINALYSIS NONAUTO W/O SCOPE 57260 Blood negative DateTime( Free Text in Aprima) URINALYSIS NONAUTO W/O SCOPE 44019 Bilirubin negative DateTime(Free Text in Apr[employer]) URINALYSIS NONAUTO W/O SCOPE 14200 Ketones trace DateTime(Free Text in Apr[employer]) URINALYSIS NONAUTO W/O SCOPE 81181 Urobilinogen negative DateTime(Free Text in Aprima) URINALYSIS NONAUTO W/O SCOPE 06181 Nitrite negative DateTime(Free Text in Aprima) URINALYSIS NONAUTO W/O SCOPE 10504 Leukocytes 1+ DateTime(Free Text in Aprima) URINALYSIS NONAUTO W/O SCOPE 76163 Specific [place] 1.005 DateTime(Free Text in Aprima) URINALYSIS NONAUTO W/O SCOPE 95615 PH 5 DateTime(Free Text in Aprima) URINALYSIS NONAUTO W/O SCOPE 56886 GLUCOSE neg DateTime( Free Text in Aprima) URINALYSIS NONAUTO W/O SCOPE 30770 Protein neg DateTime( Free Text in Aprima) URINALYSIS NONAUTO W/O SCOPE 53940 Blood neg DateTime(Free Text in Aprima) URINALYSIS NONAUTO W/O SCOPE 22710 Bilirubin neg DateTime(Free Text in Aprima) URINALYSIS NONAUTO W/O SCOPE 04292 Ketones neg DateTime( Free Text in Apr[employer]) URINALYSIS NONAUTO W/O SCOPE 63488 Urobilinogen neg DateTime(Free Text in Aprima) URINALYSIS NONAUTO W/O SCOPE 21504 Nitrite neg DateTime( Free Text in Apr[employer]) URINALYSIS NONAUTO W/O SCOPE 63882 Leukocytes neg DateTime(Free Text in Aprima) URINALYSIS NONAUTO W/O SCOPE 14121 Specific [place] 1.010 DateTime(Free Text in Aprima) URINALYSIS NONAUTO W/O SCOPE 63708 PH 6 DateTime(Free Text in Aprima) URINALYSIS NONAUTO W/O SCOPE 27299 GLUCOSE DateTime( Free Text in Aprima) URINALYSIS NONAUTO W/O SCOPE 61483 Protein DateTime( Free Text in Aprima) URINALYSIS NONAUTO W/O SCOPE 57921 Blood DateTime(Free Text in Aprima) URINALYSIS NONAUTO W/O SCOPE 78488 Bilirubin DateTime( Free Text in Aprima) URINALYSIS NONAUTO W/O SCOPE 83507 Ketones DateTime( Free Text in Aprima) URINALYSIS NONAUTO W/O SCOPE 17545 Urobilinogen DateTime (Free Text in Aprima) URINALYSIS NONAUTO W/O SCOPE 33900 Nitrite DateTime( Free Text in Aprima) URINALYSIS NONAUTO W/O SCOPE 63493 Leukocytes trace DateTime(Free Text in Aprima) Review [...] General 1995 Cardiovascular extremities Overall: no clubbing 10/16/2013 None [...] 1994 Ears/Nose/Throat oral cavity/pharynx/larynx Overall: no masses 07/10/2013 [...] wide-based 07/10/2013 None Full Exam - General 1995 Psychiatric orientation/consciousness Oriented to person: yes 07/10/2013 None Full Exam - General 1995 Psychiatric orientation/consciousness Oriented to place: no 07/10/2013 None Full Exam - General 1995 Psychiatric orientation/consciousness Oriented to time: no 07/10/2013 None Full Exam - General 1995 Psychiatric orientation/consciousness Level of consciousness: alert 07/10/2013 None Full Exam - General 1995 Psychiatric mood and affect Overall: normal mood [...] 06/12/2013 None Full Exam - General 1995 Lymphatic [...] atraumatic 06/12/2013 None Full Exam - General 1995 [...] retractions 02/13/2013 None Full Exam - General 1995 Respiratory respiratory effort/rhythm Overall: normal rate 02/13/2013 [...] nourished 01/06/2013 None Full Exam - General 1995 [...] 1995 Ears/Nose/Throat oral cavity/pharynx/larynx Overall: no masses 01/06/2013 [...] masses 05/23/2012 None Full Exam - General 1995 Respiratory [...] FLU VACC PRSV FREE INC ANTIG CPT-4: 80320 06/22/[address] VACCINE SNOMED CT: 52807556 CPT-4: G0009 09/16/2015 PNEUMOCOCCAL VACC 13 QUYEN IM Formatting Model/CDA Sections, Assigned to SNOMED CT: 64578381 CPT-4: 80429Ctkjlpj 09/16/2015 ADMIN INFLUENZA VIRUS VAC Formatting Model/CDA Sections, Assigned to/Arabella Sharma CPT-4: H3148Lobhacv 07/01/2015 FLU VACC 4 QUYEN 3 YRS PLUS IM SNOMED CT: 58020807 CPT-4: 72493 07/01/2015 FLU VAC NO PRSV 4 QUYEN 3 YRS+ CPT-4: 26383 06/11/2014 ADMIN INFLUENZA VIRUS VAC Assigned to/Arabella Sharma CPT-4: [id number] 06/11/2014 URINALYSIS NONAUTO W/O SCOPE CPT-4: 69164 07/31/2013 ADMIN INFLUENZA VIRUS VAC CPT-4: G0008 07/07/2013 FLULAVAL VACC, 3 YRS & >, IM CPT-4: Q2036 07/07/2013 ROUTINE VENIPUNCTURE CPT-4: 88302 07/07/2013 34942 EST. PATIENT, LEVEL IV CPT-4: 42031 06/12/2013 96812 EST. PATIENT, LEVEL IV CPT-4: 83424 02/13/2013 ROUTINE VENIPUNCTURE CPT-4: 33768 01/06/2013 URINALYSIS NONAUTO W/O SCOPE CPT-4: 72227 01/06/2013 23352 EST. PATIENT, LEVEL IV CPT-4: 90026 09/19/2012 URINALYSIS NONAUTO W/O SCOPE CPT-4: 82047 09/19/2012 IMMUNIZATION ADMIN CPT -4: 35418 07/25/2012 Influenza Virus Vaccine, Split Virus, >3 Yrs, IM CPT-4: 86514 07/25/2012 URINALYSIS NONAUTO W/O SCOPE CPT-4: 69146 05/23/2012 URINALYSIS NONAUTO W/O SCOPE CPT-4: 31755 04/05/2012 Vital Signs Date Vital 08/16/2017 Blood Pressure 1: 130/68 Code : 8480-6 BMI: 28.9 Code : 58070-9 Heart Rate 1 : 63 bpm Height: 5'2" SpO2: 96% Weight: 158 lbs 05/17/2017 Blood Pressure 1: 138/80 Code : 8480-6 Heart Rate 1: 88 bpm Height: SpO2: 96% Weight: 04/25/2017 Blood Pressure 1: 140/74 Code : 8480-6 BMI: 29.8 Code : 32111-5 Heart Rate 1 : 106 bpm Height: 5'2" SpO2: 96% Weight: 163 lbs 03/22/2017 Blood Pressure 1: 128/82 Code : 8480-6 BMI: 30.4 Code : 61373-5 Heart Rate 1 : 76 bpm Height: 5'2" SpO2: 95% Weight: 166 lbs 12/21/2016 Blood Pressure 1: 144/80 Code : 8480-6 BMI: 30.9 Code : 79213-7 Heart Rate 1 : 72 bpm Height: 5'2" SpO2: 98% Weight: 169 lbs 09/21/2016 Blood Pressure 1: 140/76 Code : 8480-6 BMI: 30.5 Code : 67893-1 Heart Rate 1 : 78 bpm Height: 5'2" SpO2: 97% Weight: 167 lbs 06/22/2016 Blood Pressure 1: 132/74 Code : 8480-6 BMI: 30.9 Code : 19018-5 Heart Rate 1 : 71 bpm Height: 5'2" SpO2: 98% Weight: 169 lbs 03/23/2016 Blood Pressure 1: 122/68 Code : 8480-6 BMI: 29.8 Code : 21368-2 Heart Rate 1 : 68 bpm Height: 5'2" SpO2: 98% Weight: 163 lbs 12/16/2015 Blood Pressure 1: 142/70 Code : 8480-6 BMI: 30.5 Code : 53168-3 Heart Rate 1 : 68 bpm Height: 5'2" SpO2: 98% Weight: 167 lbs 09/16/2015 Blood Pressure 1: 124/58 Code : 8480-6 BMI: 30.0 Code : 44719-5 Heart Rate 1 : 59 bpm Height: 5'2" SpO2: 96% Weight: 164 lbs 07/01/2015 Blood Pressure 1: 128/74 Code : 8480-6 BMI: 29.8 Code : 61555-9 Heart Rate 1 : 62 bpm Height: 5'2" SpO2: 98% Weight: 163 lbs 02/25/2015 Blood Pressure 1: 142/92 Code : 8480-6 Blood Pressure 2: 138/90 Code: 8480-6 BMI: 29.1 Code: 79325-2 Heart Rate 1: 78 bpm Height: 5'2" SpO2: 98% Weight: 159 lbs 11/19/2014 Blood Pressure 1: 130/80 Code : 8480-6 BMI: 28.3 Code : 75530-5 Heart Rate 1 : 68 bpm Height: 5'2" Weight: 155 lbs 08/13/2014 Blood Pressure 1: 122/62 Code : 8480-6 BMI: 27.4 Code : 56385-1 Heart Rate 1 : 72 bpm Height: 5'2" Weight: 150 lbs 06/11/2014 Blood Pressure 1: 112/56 Code : 8480-6 BMI: 27.0 Code : 54244-5 Heart Rate 1 : 67 bpm Height: 5'2" SpO2: 98% Weight: 147 lbs 8 oz 04/16/2014 Blood Pressure 1: 120/62 Code : 8480-6 BMI: 26.7 Code : 71388-8 Heart Rate 1 : 68 bpm Height: 5'2" Weight: 146 lbs 03/12/2014 Blood Pressure 1: 132/82 Code : 8480-6 BMI: 27.1 Code : 60160-1 Heart Rate 1 : 64 bpm Height: 5'2" Weight: 148 lbs 02/26/2014 Blood Pressure 1: 104/50 Code : 8480-6 BMI: 25.8 Code : 38295-3 Heart Rate 1 : 64 bpm Height: 5'2" Weight: 141 lbs 11/27/2013 Blood Pressure 1: 122/68 Code : 8480-6 Heart Rate 1: 60 bpm Weight: 153 lbs 10/16/2013 Blood Pressure 1: 136/72 Code : 8480-6 BMI: 27.4 Code : 64094-3 Heart Rate 1 : 80 bpm Height: 5'2" Weight: 150 lbs 07/10/2013 Blood Pressure 1: 126/76 Code : 8480-6 BMI: 27.3 Code : 01912-3 Heart Rate 1 : 80 bpm Height: 5'2" Weight: 149 lbs 06/12/2013 Blood Pressure 1: 168/80 Code : 8480-6 BMI: 27.3 Code : 86077-2 Heart Rate 1 : 76 bpm Height: 5'2" Weight: 149 lbs 8 oz 02/13/2013 Blood Pressure 1: 108/72 Code : 8480-6 BMI: 27.4 Code : 85675-5 Heart Rate 1 : 80 bpm Height: 5'2" Weight: 150 lbs 01/06/2013 Blood Pressure 1: 126/62 Code : 8480-6 BMI: 27.6 Code : 74059-0 Heart Rate 1 : 76 bpm Height: [...] Code : 8480-6 BMI: 27.8 Code : 86973-9 Heart Rate 1 : 80 bpm Height: [...] Present Encounters Encounter Performer Location Codes Date ([id number]) 80728 EST. 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 PATIENT, LEVEL IV Diagnosis: Mixed hyperlipidemia[ICD10: E78.2] Diagnosis: Dementia with Lewy bodies[ICD10: G31.83] Diagnosis: Major depressive disorder, recurrent, mild[ICD10: F33.0] Allie Mcneill MD [facility] CPT-4: 80871 12/21/2016 ([id number]) 18316 EST. PATIENT, LEVEL IV Diagnosis: Dementia with Lewy bodies[ICD10: G31.83] Diagnosis: Mixed hyperlipidemia[ICD10: E78.2] Diagnosis: Encounter for immunization[ICD10: Z23] Diagnosis: Major depressive disorder, recurrent, mild[ICD10: F33.0] Allie Mcneill MD, [facility] CPT-4: 73087 09/21/2016 ([id number]) 97683 EST. PATIENT, LEVEL III Diagnosis: Encounter for immunization[ICD10: Z23] Diagnosis: Dementia with Lewy bodies[ICD10: G31.83] Diagnosis: Major depressive disorder, recurrent, mild[ICD10: F33.0] Allie Mcneill MD [facility] CPT-4: 62624 06/22/2016 ([id number]) 38153 EST. PATIENT, LEVEL III Diagnosis: Mixed hyperlipidemia[ICD10: E78.2] Diagnosis: Dementia with Lewy bodies[ICD10: G31.83] Allie Mcneill MD [facility] CPT-4: 08695 03/23/2016 ([id number]) 80343 EST. PATIENT, LEVEL IV Diagnosis: Dementia with Lewy bodies[ICD10: G31.83] Diagnosis: Other hallucinations[ICD10: R44.2] Diagnosis: Mixed hyperlipidemia[ICD10: E78.2] Allie Mcneill MD [facility] CPT-4: 15965 12/16/2015 ([id number]) 39485 EST. PATIENT, LEVEL IV Diagnosis: Dementia with Lewy bodies[ICD10: G31.83] Diagnosis: Other hallucinations[ICD10: R44.2] Diagnosis: Mixed hyperlipidemia[ICD10: E78.2] Diagnosis: Encounter for immunization[ICD10: Z23] Allie Mcneill MD, [facility] CPT-4: 30783 09/16/2015 ([id number]) 37855 EST. PATIENT, LEVEL IV Diagnosis: HYPERLIPIDEMIA[ICD9: 272.4] Diagnosis: DEMEN NOS 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[ICD9: 294.20] Diagnosis: LEWY BODY DEMENTIA[ICD9: 331.82] Diagnosis: VACCIN FOR INFLUENZA[ICD9: V04.81] Allie Mcneill MD, [facility] CPT-4: 57705 07/01/2015 ([id number]) 72569 EST. PATIENT, LEVEL IV Diagnosis: HYPERLIPIDEMIA[ICD9: 272.4] Diagnosis: Dementia[ICD9: 294.20] Diagnosis: LEWY BODY DEMENTIA[ICD9: 331.82] Allie Mcneill MD, [facility] CPT-4: 42840 02/25/2015 ([id number]) 60895 EST. PATIENT, LEVEL IV Diagnosis: HYPERLIPIDEMIA[ICD9: 272.4] Diagnosis: Dementia[ICD9: 294.20] Diagnosis: LEWY BODY DEMENTIA[ICD9: 331.82] Allie Mcneill MD, [facility] CPT-4: 96766 11/19/2014 ([id number]) 11041 EST. PATIENT, LEVEL IV Diagnosis: HYPERLIPIDEMIA[ICD9: 272.4] Diagnosis: LEWY BODY DEMENTIA[ICD9: 331.82] Allie Mcneill MD, [facility] CPT-4: 55789 08/13/2014 ([id number]) 75576 EST. PATIENT, LEVEL IV Diagnosis: LEWY BODY DEMENTIA[ICD9: 331.82] Diagnosis: Psychosis[ICD9: 298.9] Allie Mcneill MD, [facility] CPT-4: 22524 06/11/2014 ([id number]) 80370 EST. PATIENT, LEVEL III Diagnosis: Lewy body dementia with behavioral disturbance[ICD9: 331.82] Diagnosis: Ulcer of gingiva[ICD9: 523.8] Shari Mcneill MD, [facility] CPT-4: 74409 04/16/2014 ([id number]) 20242 EST. PATIENT, LEVEL IV Diagnosis: Shingles[ICD9: 053.9] Diagnosis: Oral aphthae[ICD9: 528.2] Diagnosis: Yeast infection of the skin[ICD9: 112.3] Allie Mcneill MD, [facility] CPT-4: 17536 03/12/2014 ([id number]) 30808 EST. PATIENT, LEVEL IV Diagnosis: DEMEN NOS 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[ICD9: 294.20] Diagnosis: LEWY BODY DEMENTIA[ICD9: 331.82] Diagnosis: Impacted cerumen of both ears[ICD9: 380.4] Diagnosis: Weight loss[ICD9: 783.21] Diagnosis: Shingles rash[ICD9: 053.9] Allie Mcneill MD, [facility] CPT- 4: 31459 02/26/2014 ([id number]) 20815 EST. PATIENT, LEVEL IV Diagnosis: SENILE DELUSION[ICD9: 290.20] Diagnosis: LEWY BODY DEMENTIA[ICD9: 331.82] Diagnosis: HALLUCINATIONS[ICD9: 780.1] Diagnosis: PSYCHOSIS[ICD9: 298.9] Allie Mcneill MD, [facility] CPT-4: 51208 11/27/2013 ([id number]) 18725 EST. PATIENT, LEVEL IV Diagnosis: LEWY BODY DEMENTIA[ICD9: 331.82] Diagnosis: HALLUCINATIONS[ICD9: 780.1] Diagnosis: PSYCHOSIS[ICD9: 298.9] Allie Mcneill MD, [facility] CPT-4: 37875 10/16/2013 ([id number]) 04031 EST. PATIENT, LEVEL III Diagnosis: LEWY BODY DEMENTIA[ICD9: 331.82] Diagnosis: HALLUCINATIONS[ICD9: 780.1] Allie Mcneill MD, [facility] CPT- 4: 40781 07/10/2013 ([id number]) 88262 EST. PATIENT, LEVEL IV Diagnosis: LEWY BODY DEMENTIA[ICD9: 331.82] Diagnosis: HALLUCINATIONS[ICD9: 780.1] Diagnosis: Dehydration[ICD9: 276.51] Diagnosis: Dementia[ICD9: 294.20] Allie Mcneill MD, [facility] CPT-4: 27428 01/06/2013 26420 EST. PATIENT, LEVEL III Diagnosis: Candidiasis of breast[ICD9: 112.2] Diagnosis: Seborrheic keratosis[ICD9: 702.19] Diagnosis: Dry skin[ICD9: 782.9] Shari Mcneill MD, [facility] CPT-4: 20343 08/08/2012 ([id number]) 63602 EST. PATIENT, LEVEL IV Diagnosis: LEWY BODY DEMENTIA[ICD9: 331.82] Diagnosis: HALLUCINATIONS[ICD9: 780.1] [facility] CPT- 4: 85280 05/23/2012 ([id number]) 28569 EST. PATIENT, LEVEL IV Diagnosis: HALLUCINATIONS[ICD9: 780.1] Diagnosis: LEWY BODY DEMENTIA[ICD9: 331.82] [facility] CPT-4: 70879 04/04/2012 ([id number]) 44745 EST. PATIENT, LEVEL IV Diagnosis: Lewy body dementia with behavioral disturbance[ICD9: 331.82] Diagnosis: Hallucinations[ICD9: 780.1] Diagnosis: INSOMNIA IN OTHER DIS[ICD9: 327.01] [facility] CPT-4: 64146 03/21/2012 Plan of Care Planned Activity Notes [...] 4 months 08/16/2017 Appointment: Allie Mcneill WPtel: [address] [place], [place] [address] (15 min) Moderate 08/16/2017 Patient Education: Patient [...] level, symptoms. 05/17/2017 Appointment: Allie Mcneill WPtel: [address] [place], [place] [address] (15 min) Moderate 05/17/2017 Patient Education: Patient [...] at home. 04/25/2017 Appointment: Allie Mcneill WPtel: [facility]9 [facility] (15 min) Moderate 04/25/2017 Patient Education: Patient Medication Summary Completed 04/25/2017 Appointment: Allie Mcneill WPtel: [facility]6 [facility] (15 min) Moderate 04/19/2017 Visit Plan: Dementia [...] Trazodone taper. 03/22/2017 Appointment: Allie Mcneill WPtel: [facility]1 [facility] (15 min) Moderate 03/22/2017 Patient Education: Patient [...] current medications. 12/21/2016 [phone] ([facility] min) Moderate 12/21/2016 Patient Education: [...] current medications. 09/21/2016 App[facility]ment[phone] [facility] (15 min) Moderate 09/21/2016 Patient Education: [...] medications. 06/22/2016 Appointment: Allie Mcneill WPtel: [phone] [facility] (15 min) Moderate 06/22/2016 Patient Education: Patient [...] underlying psychosis. 03/23/2016 Appointment: All[facility] Mcneill WPtel[facility] (15 min) Moderate 03/23/2016 Patient Education: [...] problem. 12/16/2015 Appointment: Allie Mcneill WPtel: [phone] [facility] (15 min) Moderate 12/16/2015 Patient Education: Patient [...] to medications 09/16/2015 Appointment: Allie Mcneill WPtel: [phone] [facility] (15 min) Moderate 09/16/2015 Patient Education: Patient [...] underlying psychosis. 07/01/2015 Appointment: Allie Mcneill WPtel: [phone] [facility] Follow up 07/01/2015 Patient Education: Patient Medication [...] 1 month then stop the Marinol as Shorter has had resolution of her weight loss. [...] -start casi 11/19/2014 Appointment: Allie Mcneill WPtel: [facility] [facility] 11/19/2014 Patient Education: Patient Medication Summary Completed 11/19/2014 Appointment: [phone] [facility] [place] Follow up 11/12/2014 Appointment: Allie Mcneill WPtel[facility] [place] Follow up 09/10/2014 Visit Plan: Hyperlipidemia [...] for effectiveness. 08/13/2014 Appointment: Allie Mcneill WPtel: [phone] [facility] Follow up 08/13/2014 Patient Education: Patient Medication [...] this time. 06/11/2014 Appointment: [phone] [place] Follow up 06/11/2014 Patient Education: [...] days. 03/12/2014 Appointment: [phone] [place] Follow up 03/12/2014 Patient Education: [...] considered contagious. 02/26/2014 Appointment: Allie Mcneill WPtel: [address] [place], [place] [phone] Follow up 02/26/2014 Patient Education: Patient Medication Summary Completed 02/26/2014 Appointment: Allie Mcneill WPtel: [address] [place], [place] [phone] Follow up 02/04/2014 Appointment: Allie Mcneill WPtel: [address] [place], [place] [phone] [place] Follow up 01/19/2014 Visit Plan: Dementia [...] HELP AUGMENT PATIENT' S COMFORT AT THE RESIDENTIAL. 11/27/2013 Appointment: Allie Mcneill WPtel: [address] [place], [place] [phone] Follow up 11/27/2013 Patient Education: Patient Medication [...] not improve. 10/16/2013 Appointment: Allie Mcneill WPtel: [phone] [facility] Follow up 10/16/2013 Patient Education: Patient Medication Summary Completed 10/16/2013 Appointment: Shari Parada WPtel: [phone] [phone] [place] Lab Draw 07/31/2013 Patient Education: Patient Medication Summary Completed 07/31/2013 Appointment: Allie Mcneill WPtel: [phone] [facility] [place] Lab Draw 07/30/2013 Visit Plan: Lewy body dementia - symptoms improved on higher dose of risperdol - continue to monitor symptoms - family to call if hallucinations worsen again. 07/10/2013 Appointment: Allie Mcneill WPtel: [facility] Follow [facility] 07/10/2013 Patient Education: Patient [...] for effecitveness. 06/12/2013 Appointment: Allie Mcneill WPtel: [phone] [facility] Follow up 06/12/2013 Patient Education: Patient Medication [...] medications. 02/13/2013 Appointment: Allie Mcneill WPtel: [phone] [place] [phone] Follow up 02/13/2013 Patient Education: Patient Medication [...] check UA. 01/06/2013 Appointment: Allie Mcneill WPtel: [phone] [place] [phone] Follow up 01/06/2013 Patient Education: Patient Medication [...] check UA. 09/19/2012 Appointment: Allie Mcneill WPtel: [phone] [place] [phone] Established Patient Preventative visit 09/19/2012 Patient Education: Patient Medication Summary Completed 09/19/2012 Visit Plan: Candidiasis of breasts-discussed natural and expected course of this diagnosis and to alert me if sympotms do not follow expected course, or if any worse. Keep areas clean and dry. RX sent to patient' s pharmacy and instructed on use. Seborrheic vydqpjrva-sehiemg-lbfdtspvb eucerin cream as needed to back Dry wsvj-nkyy-knjugwjdi moisturizer such as eucerin to face-call if worsens 08/08/2012 Appointment: [phone] [place] rash 08/08/2012 Patient Education: Patient Medication Summary Completed 08/08/2012 Appointment: [phone] [facility] [place] Injection 07/25/2012 Patient Education: Patient [...] her rest. 05/23/2012 Appointment: Allie Mcneill WPtel: [facility]5 [facility] Follow up 05/23/2012 Patient Education: Patient Medication Summary Completed 05/23/2012 Appointment: Shari Parada WPtel: [phone] [phone] Lab Draw 04/05/2012 Patient Education: Patient Medication [...] regimen. 04/04/2012 Appointment: Allie Mcneill WPtel: [phone] [facility] Follow up 04/04/2012 Patient Education: Patient Medication Summary Completed 04/04/2012 Visit Plan: Lewy Body Dementia - pt has been having hallucinations, auditory, visual, gustatory, she was recently in the hospital, then was transfered to a geriatric psychiatric facility in [place] for inpatient psych treatment. She was discharged [...] are opened. 03/21/2012 Appointment: Allie Mcneill WPtel: [address] [place], [place] [address] New Patient 03/21/2012 Patient Education: Patient Medication Summary Completed 03/21/2012 Instructions Comment REMOVE UPPER AND LOWER DENTURES FOR THE [...] transfered to a geriatric psychiatric facility in [place] for inpatient psych treatment. She was discharged [...] the home doors are opened. . Lewy Body Dementia - Pt with [...] on the patient's chronic medical problem. . Candidiasis of breasts-discussed natural and expected course of this diagnosis and to alert me if sympotms do not follow expected course, or if any worse. Keep areas clean and dry. RX sent to patient's pharmacy and instructed on use. Seborrheic rnqjxziau-hdnwhwa-ptdcgizyq eucerin cream as needed to back Dry zggr-jymw-bboucitru moisturizer such as eucerin to face-call if worsens . Hypertension - well controlled - continue [...] for effecitveness. . Lewy Body Dementia - Pt with [...] TO HELP AUGMENT PATIENT'S COMFORT AT THE RESIDENTIAL. . Hyperlipidemia - pt has been counseled [...] allergies with nasal drainage -start casi . 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 Chronic Depression and anxiety - the pt has symptoms of chronic anxiety and depression - will stop the Trazodone and start on nuedexta - continue with plans for Trazodone taper. . Dementia with Behaviors - I have [...] dose at this time. . Dementia with Behaviors - I have [...] change in the current dosing regimen. . Hyperlipidemia - pt has been counseled [...] office if symptoms do not improve. . Lewy body Dementia - Pt with [...] afternoon disturbances of her rest. . Lewy Body's Dementia - Pt with [...]
--- OUTSIDE RECORDS SUMMARY | 2018-01-02 19:46 | XMS REPORT | CCD ---
Author Author Allie Mcneill Organization Allie Mcneill MD, [facility] Address [address] [place] [address] Phone Care Team Providers [place] Dem[employer]ator Name Role Phone PP Unavailable CCM Unavailable Summary Purpose Interface Exchange Insurance Providers Payer name Policy type / Coverage type Covered libertarian ID Effective Begin Date Effective End Date HUMANA CLAIMS Commercial Insurance [id number] Unknown Family history Daughter Diagnosis Age At [...] Codes Description Effective Dates Living arrangements Unknown Shelter [facility] 12/21/2016 Marital status Unknown 03/21/2012 Number of children Unknown 5 03/21/[address]: 426385505 Nonsmoker 03/21/[address]: 421018103 Never drinks alcohol 03/21/2012 Allergies, Adverse Reactions, [...] Exelon Patch 9.5 mg/24 hr transdermal RxNorm: 797492 APPLY ONE (1) PATCH ONCE DAILY. 10/19/2017 No Stop Date Active Depakote 500 mg tablet,delayed release RxNorm: 8265316 1 Tablet(s) PO daily 10/15/2017 10/09/2018 Active Protonix 20 mg tablet,delayed release RxNorm: 837110 TAKE 1 TABLET BY MOUTH DAILY 08/06/2017 03/03/2018 Active Generic For:*PROTONIX 20MG 08/06/2017 2:35:53 PM Ativan 0.5 mg tablet RxNorm: 517013 1/2 Tablet(s) PO Q6 PRN as needed 1/2 po q 2 pm 08/02/2017 09/30/2017 Inactive Depakote 500 mg tablet,delayed release RxNorm: 0787576 1 Tablet(s) PO daily 06/22/2017 10/14/2017 Inactive Exelon Patch 9.5 mg/24 hr transdermal RxNorm: 770951 APPLY ONE (1) PATCH ONCE DAILY. 05/14/2017 10/10/2017 Inactive Protonix 20 mg tablet,delayed release RxNorm: 486995 1 Tablet(s) PO daily 05/08/2017 08/05/2017 Inactive Risperdal 0.25 mg tablet RxNorm: 018077 Tablet(s) UD .25 in am and .5 in hs and .25 prn for psychosis/hallucinations 04/26/2017 05/16/2017 Inactive Nuedexta 20 mg-10 mg capsule RxNorm: 2243424 1 Capsule(s) PO daily x 7 days then go to one cap BID 03/22/2017 04/24/2017 Inactive Ativan 0.5 mg tablet RxNorm: 061162 1/2 Tablet(s) PO Q6 PRN as needed 1/2 po q 2 pm 03/21/2017 08/01/2017 Inactive Keflex 500 mg capsule RxNorm: 714906 1 Capsule(s) PO TID 201603/05/2017 Inactive Keflex 500 mg capsule RxNorm: 107649 1 Capsule(s) PO TID 201603/15/2017 Inactive Ativan 0.5 mg tablet RxNorm: 401074 1/2 Tablet(s) PO Q6 PRN as needed 1/2 po q 2 pm 02/28/2017 03/20/2017 Inactive Protonix 20 mg tablet,delayed release RxNorm: 207813 1 Tablet(s) PO daily 02/07/2017 05/07/2017 Inactive Protonix 20 mg tablet,delayed release RxNorm: 279504 1 Tablet(s) PO daily 02/07/2017 02/06/2017 Inactive amoxicillin 500 mg capsule RxNorm: 801399 1 Capsule(s) PO TID 01/11/2017 01/10/2017 Inactive Patient at [facility] amoxicillin 500 mg capsule RxNorm: 902243 1 Capsule(s) PO TID 01/11/2017 01/17/2017 Inactive Patient at [facility] Exelon Patch 9.5 mg/24 hr transdermal RxNorm: 563990 APPLY ONE (1) PATCH ONCE DAILY. 12/14/2016 05/12/2017 Inactive Flonase 50 mcg/actuation nasal spray,suspension RxNorm: 8082671 1 [place] each nostril NASAL BID 10/30/2016 11/28/2016 Inactive 2 spray each nostril Namenda 10 mg tablet RxNorm: 030055 1 Tablet(s) PO BID 201609/04/2017 Inactive Risperdal 0.25 mg tablet RxNorm: 010593 1 Tablet(s) PO QHS 01/22/2017 Inactive trazodone 50 mg tablet RxNorm: 336729 1.5 Tablet(s) PO QHS 03/29/2017 Inactive Exelon Patch 9.5 mg/24 hr transdermal RxNorm: 506147 APPLY ONE (1) PATCH ONCE DAILY. 07/18/2016 12/13/2016 Inactive trazodone 50 mg tablet RxNorm: 917370 1.5 Tablet(s) PO QHS 09/24/2016 Inactive Exelon Patch 9.5 mg/24 hr transdermal RxNorm: 586852 APPLY ONE (1) PATCH ONCE DAILY. 05/15/2016 05/14/2016 Inactive Exelon Patch 9.5 mg/24 hr transdermal RxNorm: 031389 APPLY ONE (1) PATCH ONCE DAILY. 05/15/2016 10/18/2017 Inactive Risperdal 0.25 mg tablet RxNorm: 736915 1 Tablet(s) PO QHS 11/201509/24/2016 Inactive Exelon Patch 9.5 mg/24 hr transdermal RxNorm: 913152 APPLY ONE (1) PATCH ONCE DAILY. 2016 No Stop Date Active Exelon Patch 9.5 mg/24 hr transdermal RxNorm: 596812 APPLY ONE (1) PATCH ONCE DAILY. 2016 02/21/2016 Inactive trazodone 50 mg tablet RxNorm: 641042 1.5 Tablet(s) PO QHS 01/201605/28/2016 Inactive simvastatin 20 mg tablet RxNorm: 837937 1 Tablet(s) PO daily 01/31/2017 Inactive clopidogrel 75 mg tablet RxNorm: 086846 1 Tablet(s) PO daily 01/31/2017 Inactive Celexa 20 mg tablet RxNorm: 524811 1 Tablet(s) PO daily 201501/31/2017 Inactive [place] Instant Breakfast Juice Drink oral liquid RxNorm: PO QHS after meals 02/02/2016 12/20/2016 Inactive Flonase 50 mcg/actuation nasal spray,suspension RxNorm: 5770900 1 [place] each nostril NASAL BID 12/02/2015 03/30/2016 Inactive 2 spray each nostril Namenda 10 mg tablet RxNorm: 257558 1 Tablet(s) PO BID 201510/06/2016 Inactive Risperdal 0.25 mg tablet RxNorm: 518106 1 Tablet(s) PO QHS 02/29/2016 Inactive Exelon Patch 9.5 mg/24 hr transdermal RxNorm: 961265 1 Patch TD daily 1 Patch TD daily 07/23/2015 01/18/2016 Inactive Exelon Patch 9.5 mg/24 hr transdermal RxNorm: 161945 1 Patch TD daily 07/20/2015 07/22/2015 Inactive Celexa 20 mg tablet RxNorm: 671457 1 Tablet(s) PO daily 201402/06/2016 Inactive Flonase 50 mcg/actuation nasal spray,suspension RxNorm: 956177 1 [place] each nostril NASAL BID 06/04/2015 10/01/2015 Inactive 2 spray each nostril Risperdal 0.25 mg tablet RxNorm: 859011 1 Tablet(s) PO QHS 08/01/2015 Inactive Exelon Patch 9.5 mg/24 hr transdermal RxNorm: 509673 1 Patch TD daily 04/28/2015 07/19/2015 Inactive Vitamin D3 2,000 unit capsule RxNorm: 279420 1 Capsule(s) PO daily 02/10/2015 03/15/2016 Inactive Calcium 600 + D(3) 600 mg (1,500 mg)-400 unit tablet RxNorm: 082055 1 Tablet(s) PO daily 02/09/2015 No Stop Date Active Celexa 20 mg tablet RxNorm: 755344 1 Tablet(s) PO daily 201412/09/2014 Inactive Celexa 20 mg tablet RxNorm: 815908 1 Tablet(s) PO daily 201407/07/2015 Inactive Flonase 50 mcg/actuation nasal spray,suspension RxNorm: 115973 1 [place] each nostril NASAL BID 11/27/2014 03/26/2015 Inactive 2 spray each nostril Amy Allergy 180 mg tablet RxNorm: 204714 1 Tablet(s) PO daily 11/19/2014 12/18/2014 Inactive Marinol 2.5 mg capsule RxNorm: 945080 1 Capsule(s) PO TID 11/1603/15/2015 Inactive [SAVINGS FOR UNINSURED PATIENTS -- BIN:[id number], PCN: [id number], Group: [id number], ID# [id number], Process claim through [employer], for questions: . THIS IS NOT INSURANCE.] Namenda 10 mg tablet RxNorm: 737149 1 Tablet(s) PO BID 201402/08/2015 Inactive Marinol 2.5 mg capsule RxNorm: 193489 1 Capsule(s) PO TID 10/1211/10/2014 Inactive Namenda 10 mg tablet RxNorm: 360746 1 Tablet(s) PO BID 201410/11/2014 Inactive Flonase 50 mcg/actuation nasal spray,suspension RxNorm: 981318 2 [place] NASAL BID 08/17/2014 11/26/2014 Inactive 2 spray each nostril Exelon Patch 9.5 mg/24 hr transdermal RxNorm: 822162 1 Patch TD daily 07/10/2014 10/07/2014 Inactive Risperdal 0.25 mg tablet RxNorm: 360606 1 Tablet(s) PO QHS 05/201405/03/2015 Inactive Namenda XR 14 mg capsule sprinkle,ER 24hr RxNorm: 176488 1 Capsule(s) PO daily 04/13/2014 10/11/2014 Inactive acyclovir 800 mg tablet RxNorm: 422368 1 Tablet(s) PO TID 03/1203/18/2014 Inactive nystatin 100,000 unit/gram topical powder RxNorm: 573939 1 Gram(s) TOP QID apply to tissue under breasts and if needed other folded skin ears with evidence of yeast infection 03/12/2014 03/21/2014 Inactive simvastatin 20 mg tablet RxNorm: 957795 1 Tablet(s) PO daily 02/15/2014 Inactive trazodone 50 mg tablet RxNorm: 724394 1 1/2 Tablet(s) PO daily 02/16/2014 02/15/2014 Inactive trazodone 50 mg tablet RxNorm: 513810 1 1/2 Tablet(s) PO daily 02/16/2014 03/17/2014 Inactive clopidogrel 75 mg tablet RxNorm: 580808 1 Tablet(s) PO daily 02/10/2015 Inactive Exelon 4.6 mg/24 hour transdermal 24 hour patch RxNorm: 295151 1 TD daily 02/16/2014 03/17/2014 Inactive simvastatin 20 mg tablet RxNorm: 903277 1 Tablet(s) PO daily 06/15/2014 Inactive Vitamin B-12 2,500 mcg sublingual tablet RxNorm: 063132 1 Tablet(s) SL daily 01/22/2014 No Stop Date Active Ativan 0.5 mg tablet RxNorm: 540757 1/2 Tablet(s) PO Q6 PRN 1/2 po q 2 pm and 1 po q 6 hours prn anxiety 10/16/20132013 Inactive Cipro 500 mg tablet RxNorm: 524753 1 Tablet(s) PO BID correction 08/04/2013 08/08/2013 Inactive Cipro 500 mg tablet RxNorm: 222317 2 Tablet(s) PO BID 201208/03/2013 Inactive Cipro 500 mg tablet RxNorm: 368820 2 Tablet(s) PO BID 201207/31/2013 Inactive Influenza Virus Vaccine 0.5 mL RxNorm: IM 07/07/2013 07/07/2013 Inactive clopidogrel 75 mg tablet RxNorm: 885685 1 Tablet(s) PO daily 02/15/2014 Inactive risperidone 0.5 mg tablet RxNorm: 826970 1 Tablet(s) PO TID 01/21/2014 Inactive atorvastatin 20 mg tablet RxNorm: 008075 1 Tablet(s) PO QPM 01/21/2014 Inactive TAKE ONE TABLET BY MOUTH EVERY DAY risperidone 0.5 mg tablet RxNorm: 778240 1 Tablet(s) PO TID 02/201306/24/2013 Inactive Risperdal 0.25 mg tablet RxNorm: 697578 Tablet(s) PO TAKE 1 TABLET AT NOON AND TAKE 1 TABLET AT NIGHT IF NEEDED FOR HALLUCINATIONS 201206/11/2013 Inactive clopidogrel 75 mg tablet RxNorm: 412914 1 Tablet(s) PO daily 06/24/2013 Inactive Risperdal 0.25 mg tablet RxNorm: 126159 1 Tablet(s) PO noon one at noon and one in night if needed for hallucinations. 09/06/2012 01/01/2013 Inactive atorvastatin 20 mg tablet RxNorm: 949418 1 Tablet(s) PO QPM 06/24/2013 Inactive TAKE ONE TABLET BY MOUTH EVERY DAY risperidone 0.5 mg tablet RxNorm: 365212 1 Tablet(s) PO BID 06/11/2013 Inactive atorvastatin 20 mg tablet RxNorm: 297463 Tablet(s) PO 201109/05/2012 Inactive TAKE ONE TABLET BY MOUTH EVERY DAY nystatin 100,000 unit/g Topical Powder RxNorm: 949373 1 Gram(s) TOP BID 08/08/2012 08/27/2012 Inactive atorvastatin 20 mg tablet RxNorm: 323261 Tablet(s) PO 201108/11/2012 Inactive TAKE ONE TABLET BY MOUTH EVERY DAY risperidone 0.5 mg tablet RxNorm: 459965 1 Tablet(s) PO BID 03/201207/12/2012 Inactive Risperdal 0.25 mg tablet RxNorm: 833835 1 Tablet(s) PO noon one at noon and one in night if needed for hallucinations. 06/13/2012 09/05/2012 Inactive clopidogrel 75 mg tablet RxNorm: 541021 1 Tablet(s) PO daily 09/05/2012 Inactive atorvastatin 20 mg tablet RxNorm: 520899 1 Tablet(s) PO daily 05/10/2012 06/08/2012 Inactive Cipro 500 mg Tab RxNorm: 085731 1 Tablet(s) PO BID 201104/11/2012 Inactive Risperdal 0.25 mg tablet RxNorm: 274153 1 Tablet(s) PO noon one at noon and one in night if needed for hallucinations. 03/22/2012 06/12/2012 Inactive Risperdal 0.25 mg Tab RxNorm: 654593 1 Tablet(s) PO noon one at noon and one in night if needed for hallucinations. 03/21/2012 03/21/2012 Inactive Vitamin D3 2,000 unit tablet RxNorm: 200414 1 Tablet(s) PO daily No Start Date Active Protonix 20 mg tablet,delayed release RxNorm: 634992 1 Tablet(s) PO daily No Start Date Active losartan 50 mg tablet RxNorm: 598944 1 Tablet(s) PO daily No Start Date Active Vitamin B-12 500 mcg tablet RxNorm: 168639 1 Tablet(s) PO daily No Start Date Active lorazepam 0.5 mg tablet RxNorm: 081924 1 Tablet(s) PO daily No Start Date Active melatonin 3 mg tablet RxNorm: 863977 2 Tablet(s) PO QHS No Start Date Active Tylenol 500 mg RxNorm : 1 -2 Tablet(s) PO Q6 as needed pain or fever No Start Date Active Vitamin D3 2,000 unit capsule RxNorm: 184890 1 Capsule(s) PO daily No Start Date 02/09/2015 Inactive trazodone 50 mg tablet RxNorm: 007196 1.5 Tablet(s) PO QHS No Start Date 02/08/2016 Inactive Trazadone 25 mg RxNorm : 3 PO QHS No Start Date 02/15/2014 Inactive [place] Instant Breakfast Juice Drink oral liquid RxNorm: PO TID after meals No Start Date 02/01/2016 Inactive Vitamin B-12 2,500 mcg sublingual tablet RxNorm: 353380 1 Tablet(s) SL daily No Start Date 01/21/2014 Inactive Tums Calcium for Life Bone 300 mg (750 mg) chewable tablet RxNorm: 629912 2 Tablet (s) PO daily No Start Date 02/12/2013 Inactive calcium 300 mg chewable tablet RxNorm: 1 Tablet(s) PO daily No Start Date 12/03/2015 Inactive with vitamin d Marinol 2.5 mg capsule RxNorm: 165202 1 Capsule(s) PO ac tid No Start Date 03/11/2014 Inactive Namenda XR 14 mg capsule sprinkle,ER 24hr RxNorm: 468587 1 Capsule(s) PO daily No Start Date 04/12/2014 Inactive clopidogrel 75 mg tablet RxNorm: 604338 1 Tablet(s) PO daily No Start Date 05/09/2012 Inactive Namenda 5 mg Tab RxNorm: 905050 1 Tablet(s) PO BID No Start Date 04/12/2014 Inactive Depakote 500 mg tablet,delayed release RxNorm: 4837874 1 Tablet(s) PO daily No Start Date 06/21/2017 Inactive Zocor 20 mg tablet RxNorm: 722899 1 Tablet(s) PO daily No Start Date 08/12/2014 Inactive Depakote ER 250 mg tablet,extended release RxNorm: 7095821 1 Tablet(s) PO BID No Start Date 12/31/2013 Inactive Calcium 600 + D(3) oral RxNorm: 060081 oral No Start Date 02/08/2015 Inactive risperidone 0.5 mg tablet RxNorm: 974484 1 Tablet(s) PO BID No Start Date 06/12/2012 Inactive atorvastatin 20 mg tablet RxNorm: 020840 1 Tablet(s) PO daily No Start Date 05/09/2012 Inactive Flonase 50 mcg/actuation nasal spray,suspension RxNorm: 162627 2 [place] NASAL BID No Start Date 08/16/2014 Inactive 2 spray each nostril Exelon 4.6 mg/24 hour transdermal 24 hour patch RxNorm: 386325 1 TD daily No Start Date 02/15/2014 [...] 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 ICD-9: 298.8 08/16/2017 Major depressive disorder, recurrent, 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 ICD-9: 296.31 08/16/2017 Dementia with Lewy bodies ICD-10: G31.83 ICD-9: 331.82 04/25/2017 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 ICD-9: 310.81 03/22/2017 Mixed hyperlipidemia ICD-10: E78.2 ICD-9: 272.2 12/21/2016 Encounter for immunization ICD-10: Z23 ICD-9: V04.81 09/21/2016 Mixed hyperlipidemia ICD-10: E78.2 ICD-9: 272.4 03/23/2016 Other hallucinations ICD-10: R44.2 ICD-9: 780.1 12/16/2015 Encounter for immunization ICD-10: Z23 ICD-9: V03.82 09/16/2015 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 VACCIN FOR INFLUENZA ICD-9: V04.81 2014 DEMEN NOS 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 ICD-9: 294.20 HYPERLIPIDEMIA ICD-9: 272.4 07/01/2015 Psychosis ICD-9: 298.9 06/11/2014 Ulcer of gingiva ICD-9: 523.8 04/16/2014 Shingles ICD-9: 053.9 03/12/2014 Yeast infection of the skin ICD-9: 112.3 03/12/2014 Oral aphthae ICD-9: 528.2 03/12/2014 Impacted cerumen of both ears ICD-9: 380.4 02/26/2014 Weight loss ICD-9: 783.21 02/26/2014 SENILE DELUSION ICD-9: 290.20 11/27/2013 HALLUCINATIONS ICD-9: 780.1 11/27/2013 URINARY FREQUENCY ICD-9: 788.41 2012 DYSURIA [...] depression 06/11/2014 skin lesion 04/16/2014 reported by retirement skin lesion 03/12/2014 weight loss 02/26/2014 medication follow up 11/27/2013 anxiety 10/16/2013 memory loss 07/10/2013 --Improved vaccination against influenza 07/07/2013 memory loss 06/12/2013 hallucination 02/13/2013 hallucination 01/06/2013 rash 09/19/2012 skin lesion 08/08/2012 vaccination against influenza 07/25/2012 memory loss 05/23/2012 hallucination 04/04/2012 dementia memory loss 03/21/2012 Results Observation Observation Code Item Item Code Result Date Hepatic Qlt641 ALBUMIN 3.3 g/dL 10/22/2017 Hepatic Rcz522 TPRO 5.7 g/dL 10/22/2017 Hepatic Uyc374 GLOB 2.4 g/dL 10/22/2017 Hepatic Qep647 A/G Ratio 1.4 Ratio 10/22/2017 Hepatic Jhv312 ALK PHOS 72 U/L 10/22/2017 Hepatic Aud003 ALT(SGPT) 5 U/L 10/22/2017 Hepatic Enc080 AST(SGOT) 9 U/L 10/22/2017 Hepatic Jjj683 BILI T 0.3 mg/dL 10/22/2017 Hepatic Hmr726 BILI D 0.0 mg/dL 10/22/2017 Hepatic Mup552 BILI I 0.3 mg/dL 10/22/2017 Valproic Acid Jip760 VALPROIC 10.0 ug/ml 09/20/2017 Hepatic Lxg575 ALBUMIN 3.8 g/dL 09/20/2017 Hepatic Lkx898 TPRO 6.3 g/dL 09/20/2017 Hepatic Hnj571 GLOB 2.5 g/dL 09/20/2017 Hepatic Ioj531 A/G Ratio 1.5 Ratio 09/20/2017 Hepatic Ubw844 ALK PHOS 67 U/L 09/20/2017 Hepatic Yzo456 ALT(SGPT) 5 U/L 09/20/2017 Hepatic Ied305 AST(SGOT) 11 U/L 09/20/2017 Hepatic Ncu558 BILI T 0.4 mg/dL 09/20/2017 Hepatic Bqy854 BILI D 0.1 mg/dL 09/20/2017 Hepatic Jaz066 BILI I 0.3 mg/dL 09/20/2017 Valproic Acid Azo002 VALPROIC 44.0 ug/ml 08/23/[address] ALBUMIN 3.5 g/dL 08/23/2017 Hepatic Ftc821 TPRO 6.1 g/dL 08/23/2017 Hepatic Qku625 GLOB 2.6 g/dL 08/23/2017 Hepatic Oxt525 A/G Ratio 1.4 Ratio 08/23/2017 Hepatic Quf979 ALK PHOS 63 U/L 08/23/2017 Hepatic Hpu845 ALT(SGPT) 5 U/L 08/23/2017 Hepatic Szp241 AST(SGOT) 9 U/L 08/23/2017 Hepatic Gfm309 BILI T 0.3 mg/dL 08/23/2017 Hepatic Kif065 BILI D 0.1 mg/dL 08/23/2017 Hepatic Dha476 BILI I 0.2 mg/dL 08/23/2017 Hepatic Yfx136 ALBUMIN 3.5 g/dL 07/23/2017 Hepatic Njj252 TPRO 5.9 g/dL 07/23/2017 Hepatic Aqk152 GLOB 2.4 g/dL 07/23/2017 Hepatic Hyb574 A/G Ratio 1.5 Ratio 07/23/2017 Hepatic Jct466 ALK PHOS 61 U/L 07/23/2017 Hepatic Vft625 ALT(SGPT) 6 U/L 07/23/2017 Hepatic Yhm218 AST(SGOT) 11 U/L 07/23/2017 Hepatic Xgh677 BILI T 0.3 mg/dL 07/23/2017 Hepatic Xug225 BILI D 0.1 mg/dL 07/23/2017 Hepatic Sgl105 BILI I 0.2 mg/dL 07/23/2017 Valproic Acid Bvy248 VALPROIC 37.0 ug/ml 07/23/2017 Hepatic Dfu611 ALBUMIN 3.6 g/dL 06/26/2017 Hepatic Pjl521 TPRO 6.0 g/dL 06/26/2017 Hepatic Htn606 GLOB 2.4 g/dL 06/26/2017 Hepatic Bra356 A/G Ratio 1.5 Ratio 06/26/2017 Hepatic Mbb768 ALK PHOS 64 U/L 06/26/2017 Hepatic Mzu589 ALT(SGPT) 8 U/L 06/26/2017 Hepatic Knl573 AST(SGOT) 11 U/L 06/26/2017 Hepatic Phw789 BILI T 0.3 mg/dL 06/26/2017 Hepatic Kqc570 BILI D 0.1 mg/dL 06/26/2017 Hepatic Kfl947 BILI I 0.2 mg/dL 06/26/2017 Valproic Acid Gyv376 VALPROIC 45.0 ug/ml 06/26/2017 Valproic Acid Joy387 VALPROIC 27.0 ug/ml 05/18/2017 Bili D Ord93 BILI D 0.1 mg/dL 05/18/2017 Bili D Ord93 BILI I 0.3 mg/dL 05/18/2017 Comp Metabolic Yea366 NA 140 mEq/L 05/18/2017 Comp Metabolic Smb927 K 4.2 mEq/L 05/18/2017 Comp Metabolic Swu349 CL 103 mEq/L 05/18/2017 Comp Metabolic Klt350 CO2 27.0 mEq/L 05/18/2017 Comp Metabolic Srn877 ANION GAP 14 05/18/2017 Comp Metabolic Fil821 GLUCOSE 85 mg/dL 05/18/2017 Comp Metabolic Qli611 Creat 0.6 mg/dL 05/18/2017 Comp Metabolic Xik378 eGFR 109 ml/min/1.73m2 05/18/2017 Comp Metabolic Ilr528 BUN 8 mg/dL 05/18/2017 Comp Metabolic Ppn710 B/C Ratio 14.3 Ratio 05/18/2017 Comp Metabolic Zgj950 CALCIUM 8.6 mg/dL 05/18/2017 Comp Metabolic Xfb324 ALK PHOS 85 U/L 05/18/2017 Comp Metabolic Gey915 AST(SGOT) 10 U/L 05/18/2017 Comp Metabolic Nho853 ALT(SGPT) 6 U/L 05/18/2017 Comp Metabolic Vdn289 BILI T 0.4 mg/dL 05/18/2017 Comp Metabolic Kpe770 ALBUMIN 3.7 g/dL 05/18/2017 Comp Metabolic Zny990 TPRO 6.3 g/dL 05/18/2017 Comp Metabolic Huc141 GLOB 2.6 g/dL 05/18/2017 Comp Metabolic Bou946 A/G Ratio 1.4 Ratio 05/18/2017 Comp Metabolic Iie898 Osmo 277 mOsmo 05/18/2017 Urinalysis Ord28 U-Color Yellow 04/11/2017 Urinalysis [...] U-VOL VOLUME SUFFICIENT (10mL) 04/11/2017 Urinalysis Ord28 U-Yeast NEGATIVE 04/11/2017 Urinalysis Ord28 U-Com Urine saved if culture needed (specimen acceptable for 48 hours from collection if refrigerated) 04/11/2017 A1C 2854231 A1C HPLC 27042-5 5.9 % 07/08/2013 GFR CALC 7631643 GFR AA >60 ML/MIN 07/07/2013 GFR CALC 1489106 GFR NON-AA >60 ML/MIN 07/07/2013 CBC 3743569 WBC 8.9 10e9/L 07/07/2013 CBC 3597851 RBC 4.27 10e12/L 07/07/2013 CBC 8057723 HGB 12.7 g/dL 07/07/2013 CBC 2515061 HCT DET 39.0 % 07/07/2013 CBC 9156628 MCV 91.3 fL 07/07/2013 CBC 3551551 MCH 29.7 pg 07/07/2013 CBC 8104709 MCHC 32.6 g/dL 07/07/2013 CBC 1006738 PLT 273 10e9/L 07/07/2013 CBC 9374950 MPV 11.0 fL 07/07/2013 CBC 7410335 TORREY % 69.1 % 07/07/2013 CBC 3291572 LY % 19.6 % 07/07/2013 CBC 2605838 MON % 8.5 % 07/07/2013 CBC 5708111 EOS % 2.6 % 07/07/2013 CBC 4457019 BASO % 0.2 % 07/07/2013 CBC 1185446 RDW 13.0 % 07/07/2013 CBC 1133979 ABS TORREY 6.15 10e9/L 07/07/2013 CBC 4062218 ABS LYMPH 1.74 10e9/L 07/07/2013 CBC 8517134 ABS MONO 0.76 10e9/L 07/07/2013 CBC 8768592 ABS EOS 0.23 10e9/L 07/07/2013 CBC 1185689 ABS BASO 0.02 10e9/L 07/07/2013 CBC 5392842 RDW-SD 42.3 fL 07/07/2013 LIPID GRP HDL TEST 47 MG/DL 07/07/2013 LIPID GRP TRIG 121 MG/DL 07/07/2013 LIPID GRP TEST LDL 63 MG/DL 07/07/2013 LIPID GRP CHOL 134 MG/DL 07/07/2013 LIPID GRP RCHOL/HDL 2.85 RATIO 07/07/2013 CHEM 14 7170516 AST 14 U/L 07/07/2013 CHEM 14 6336544 ALT 10 IU/L 07/07/2013 CHEM 14 9297111 BUN 11 MG/DL 07/07/2013 CHEM 14 4815504 ALBUMIN 4.1 GM/DL 07/07/2013 CHEM 14 0207105 CHLORIDE 107 MMOL/L 07/07/2013 CHEM 14 4254621 BILI TOT 0.4 MG/DL 07/07/2013 CHEM 14 5049184 ALK PHOS 54 U/L 07/07/2013 CHEM 14 7128537 SODIUM 141 MMOL/L 07/07/2013 CHEM 14 5402420 CREATININE 0.70 MG/DL 07/07/2013 CHEM 14 4468367 CALCIUM 9.0 MG/DL 07/07/2013 CHEM 14 0166304 POTASSIUM 4.2 MMOL/L 07/07/2013 CHEM 14 8990506 PROT TOT 6.5 GM/DL 07/07/2013 CHEM 14 2670685 GLUCOSE 102 MG/DL 07/07/2013 CHEM 14 7591579 BICARB 28 MMOL/L 07/07/2013 CHEM 14 0017241 ANION GAP 6 MEQ/L 07/07/2013 CHEM 14 6673474 AST 14 U/L 01/06/2013 CHEM 14 1542686 ALT 12 IU/L 01/06/2013 CHEM 14 7652424 BUN 9 MG/DL 01/06/2013 CHEM 14 0386658 ALBUMIN 4.2 GM/DL 01/06/2013 CHEM 14 6688101 CHLORIDE 108 MMOL/L 01/06/2013 CHEM 14 2063329 BILI TOT 0.4 MG/DL 01/06/2013 CHEM 14 3040761 ALK PHOS 74 U/L 01/06/2013 CHEM 14 6872903 SODIUM 142 MMOL/L 01/06/2013 CHEM 14 2237438 CREATININE 0.62 MG/DL 01/06/2013 CHEM 14 9587151 CALCIUM 9.0 MG/DL 01/06/2013 CHEM 14 5639149 POTASSIUM 4.3 MMOL/L 01/06/2013 CHEM 14 9960143 PROT TOT 6.6 GM/DL 01/06/2013 CHEM 14 0349551 GLUCOSE 94 MG/DL 01/06/2013 CHEM 14 2950322 BICARB 25 MMOL/L 01/06/2013 CHEM 14 4219816 ANION GAP 9 MEQ/L 01/06/2013 FREE T4 3363138 FREE T4 1.19 NG/DL 01/06/2013 GFR CALC 3997730 GFR AA >60 ML/MIN 01/06/2013 GFR CALC 4786731 GFR NON-AA >60 ML/MIN 01/06/2013 VIT B 12 7252363 VIT B 12 >2000 PG/ML 01/06/2013 CBC 2203011 WBC 7.2 10e9/L 01/06/2013 CBC 1442796 RBC 4.22 10e12/L 01/06/2013 CBC 6896460 HGB 12.6 g/dL 01/06/2013 CBC 1636615 HCT DET 38.3 % 01/06/2013 CBC 1887812 MCV 90.8 fL 01/06/2013 CBC 1287224 MCH 29.9 pg 01/06/2013 CBC 7845687 MCHC 32.9 g/dL 01/06/2013 CBC 7312104 PLT 287 10e9/L 01/06/2013 CBC 8085726 MPV 11.0 fL 01/06/2013 CBC 1518835 TORREY % 68.0 % 01/06/2013 CBC 9909186 LY % 21.6 % 01/06/2013 CBC 2150213 MON % 9.0 % 01/06/2013 CBC 5098101 EOS % 1.3 % 01/06/2013 CBC 7271624 BASO % 0.1 % 01/06/2013 CBC 8588178 RDW 13.3 % 01/06/2013 CBC 8356575 ABS TORREY 4.90 10e9/L 01/06/2013 CBC 8808030 ABS LYMPH 1.56 10e9/L 01/06/2013 CBC 1157935 ABS MONO 0.65 10e9/L 01/06/2013 CBC [id number] ABS EOS 0.09 10e9/L 01/06/2013 CBC [id number] ABS BASO 0.01 10e9/L 01/06/2013 CBC [id number] RDW-SD 43.0 fL 01/06/2013 TSH [id number] TSH 1.814 uIU/ML 01/06/2013 URINALYSIS NONAUTO W/O SCOPE 43789 Specific [place] 1.020 DateTime(Free Text in Aprima) URINALYSIS NONAUTO W/O SCOPE 27693 PH 6.0 DateTime(Free Text in Aprima) URINALYSIS NONAUTO W/O SCOPE 13846 GLUCOSE negative DateTime(Free Text in Aprima) URINALYSIS NONAUTO W/O SCOPE 77741 Protein negative DateTime(Free Text in Aprima) URINALYSIS NONAUTO W/O SCOPE 72600 Blood negative DateTime( Free Text in Aprima) URINALYSIS NONAUTO W/O SCOPE 64444 Bilirubin negative DateTime(Free Text in Aprima) URINALYSIS NONAUTO W/O SCOPE 24224 Ketones trace DateTime(Free Text in Aprima) URINALYSIS NONAUTO W/O SCOPE 83913 Urobilinogen negative DateTime(Free Text in Aprima) URINALYSIS NONAUTO W/O SCOPE 09518 Nitrite negative DateTime(Free Text in Aprima) URINALYSIS NONAUTO W/O SCOPE 01879 Leukocytes 1+ DateTime(Free Text in Aprima) URINALYSIS NONAUTO W/O SCOPE 83506 Specific [place] 1.005 DateTime(Free Text in Aprima) URINALYSIS NONAUTO W/O SCOPE 54352 PH 5 DateTime(Free Text in Aprima) URINALYSIS NONAUTO W/O SCOPE 94002 GLUCOSE neg DateTime( Free Text in Aprima) URINALYSIS NONAUTO W/O SCOPE 62988 Protein neg DateTime( Free Text in Aprima) URINALYSIS NONAUTO W/O SCOPE 08254 Blood neg DateTime(Free Text in Aprima) URINALYSIS NONAUTO W/O SCOPE 30172 Bilirubin neg DateTime(Free Text in Aprima) URINALYSIS NONAUTO W/O SCOPE 00909 Ketones neg DateTime( Free Text in Aprima) URINALYSIS NONAUTO W/O SCOPE 47411 Urobilinogen neg DateTime(Free Text in Aprima) URINALYSIS NONAUTO W/O SCOPE 27838 Nitrite neg DateTime( Free Text in Aprima) URINALYSIS NONAUTO W/O SCOPE 38146 Leukocytes neg DateTime(Free Text in Aprima) URINALYSIS NONAUTO W/O SCOPE 15749 Specific [place] 1.010 DateTime(Free Text in Aprima) URINALYSIS NONAUTO W/O SCOPE 20311 PH 6 DateTime(Free Text in Aprima) URINALYSIS NONAUTO W/O SCOPE 69271 GLUCOSE DateTime( Free Text in Aprima) URINALYSIS NONAUTO W/O SCOPE 62241 Protein DateTime( Free Text in Aprima) URINALYSIS NONAUTO W/O SCOPE 10353 Blood DateTime(Free Text in Aprima) URINALYSIS NONAUTO W/O SCOPE 01301 Bilirubin DateTime( Free Text in Aprima) URINALYSIS NONAUTO W/O SCOPE 10902 Ketones DateTime( Free Text in Aprima) URINALYSIS NONAUTO W/O SCOPE 63288 Urobilinogen DateTime (Free Text in Aprima) URINALYSIS NONAUTO W/O SCOPE 83577 Nitrite DateTime( Free Text in Aprima) URINALYSIS NONAUTO W/O SCOPE 09359 Leukocytes trace DateTime(Free Text in Aprima) Review [...] Effective Dates Notes Full Exam - General 1995 Constitutional general appearance Overall: well developed 08/16/2017 [...] sounds 11/27/2013 None Full Exam - General 1995 Lymphatic neck nodes Overall: anterior cervical chain benign 11/27/2013 None Full Exam - General 1995 Lymphatic [...] clear 10/16/2013 None Full Exam - General 1995 Ears/Nose/Throat [...] murmurs 06/12/2013 None Full Exam - General 1995 Abdomen abdominal exam Overall: no tenderness 06/12/2013 None Full Exam - General 1995 Abdomen [...] kyphosis 02/13/2013 None Full Exam - General 1994 [...] no 02/13/2013 None Full Exam - General 1995 Psychiatric orientation/consciousness Level of consciousness: alert 02/13/2013 None Full Exam - General 1994 Psychiatric mood and affect Overall: normal mood and affect 02/13/2013 None Full Exam - General 1994 Constitutional general appearance Overall: well developed 01/06/2013 None Full Exam - General 1995 Constitutional [...] atraumatic 01/06/2013 None Full Exam - General 1995 [...] yes 05/23/2012 None Full Exam - General 1995 Psychiatric orientation/consciousness Oriented to place: no 05/23/2012 None Full Exam - General 1995 Psychiatric orientation/consciousness Oriented to time: no 05/23/2012 None Full Exam - General 1994 Psychiatric orientation/consciousness Level of consciousness: alert 05/23/2012 None Full Exam - General 1994 Psychiatric mood and affect Overall: normal mood and affect 05/23/2012 None Full Exam - General 1995 [...] FLU VACC PRSV FREE INC ANTIG CPT-4: 11220 06/22/2016 ADMIN PNEUMOCOCCAL VACCINE SNOMED CT: 55683500 CPT-4: G0009 09/16/2015 PNEUMOCOCCAL VACC 13 QUYEN IM Formatting Model/CDA Sections, Assigned to SNOMED CT: 06001330 CPT-4: 40351Tnmimkg 09/16/2015 ADMIN INFLUENZA VIRUS VAC Formatting Model/CDA Sections, Assigned to/Arabella Sharma CPT-4: L5062Lppeysw 07/01/2015 FLU VACC 4 QUYEN 3 YRS PLUS IM SNOMED CT: 39441766 CPT-4: 98079 07/01/2015 FLU VAC NO PRSV 4 QUYEN 3 YRS+ CPT-4: 51987 06/11/2014 ADMIN INFLUENZA VIRUS VAC Assigned to/Arabella Sharma CPT-4: T0381Bzibgnn 06/11/2014 URINALYSIS NONAUTO W/O SCOPE CPT-4: 31846 07/31/2013 ADMIN INFLUENZA VIRUS VAC CPT-4: G0008 07/07/2013 FLULAVAL VACC, 3 YRS & >, IM CPT-4: Q2036 07/07/2013 ROUTINE VENIPUNCTURE CPT-4: 75687 07/07/2013 58835 EST. PATIENT, LEVEL IV CPT-4: 50421 06/12/2013 05933 EST. PATIENT, LEVEL IV CPT-4: 60654 02/13/2013 ROUTINE VENIPUNCTURE CPT-4: 78186 01/06/2013 URINALYSIS NONAUTO W/O SCOPE CPT-4: 45515 01/06/2013 91127 EST. PATIENT, LEVEL IV CPT-4: 90899 09/19/2012 URINALYSIS NONAUTO W/O SCOPE CPT-4: 09302 09/19/2012 IMMUNIZATION ADMIN CPT -4: 93192 07/25/2012 Influenza Virus Vaccine, Split Virus, >3 Yrs, IM CPT-4: 18735 07/25/2012 URINALYSIS NONAUTO W/O SCOPE CPT-4: 04600 05/23/2012 URINALYSIS NONAUTO W/O SCOPE CPT-4: 94135 04/05/2012 Vital Signs Date Vital 08/16/2017 Blood Pressure 1: 130/68 Code : 8480-6 BMI: 28.9 Code : 51501-5 Heart Rate 1 : 63 bpm Height: 5'2" SpO2: 96% Weight: 158 lbs 05/17/2017 Blood Pressure 1: 138/80 Code : 8480-6 Heart Rate 1: 88 bpm Height: SpO2: 96% Weight: 04/25/2017 Blood Pressure 1: 140/74 Code : 8480-6 BMI: 29.8 Code : 61444-6 Heart Rate 1 : 106 bpm Height: 5'2" SpO2: 96% Weight: 163 lbs 03/22/2017 Blood Pressure 1: 128/82 Code : 8480-6 BMI: 30.4 Code : 19074-6 Heart Rate 1 : 76 bpm Height: 5'2" SpO2: 95% Weight: 166 lbs 12/21/2016 Blood Pressure 1: 144/80 Code : 8480-6 BMI: 30.9 Code : 72519-4 Heart Rate 1 : 72 bpm Height: 5'2" SpO2: 98% Weight: 169 lbs 09/21/2016 Blood Pressure 1: 140/76 Code : 8480-6 BMI: 30.5 Code : 25754-4 Heart Rate 1 : 78 bpm Height: 5'2" SpO2: 97% Weight: 167 lbs 06/22/2016 Blood Pressure 1: 132/74 Code : 8480-6 BMI: 30.9 Code : 18634-0 Heart Rate 1 : 71 bpm Height: 5'2" SpO2: 98% Weight: 169 lbs 03/23/2016 Blood Pressure 1: 122/68 Code : 8480-6 BMI: 29.8 Code : 42041-4 Heart Rate 1 : 68 bpm Height: 5'2" SpO2: 98% Weight: 163 lbs 12/16/2015 Blood Pressure 1: 142/70 Code : 8480-6 BMI: 30.5 Code : 26128-0 Heart Rate 1 : 68 bpm Height: 5'2" SpO2: 98% Weight: 167 lbs 09/16/2015 Blood Pressure 1: 124/58 Code : 8480-6 BMI: 30.0 Code : 89794-4 Heart Rate 1 : 59 bpm Height: 5'2" SpO2: 96% Weight: 164 lbs 07/01/2015 Blood Pressure 1: 128/74 Code : 8480-6 BMI: 29.8 Code : 01041-7 Heart Rate 1 : 62 bpm Height: 5'2" SpO2: 98% Weight: 163 lbs 02/25/2015 Blood Pressure 1: 142/92 Code : 8480-6 Blood Pressure 2: 138/90 Code: 8480-6 BMI: 29.1 Code: 84761-8 Heart Rate 1: 78 bpm Height: 5'2" SpO2: 98% Weight: 159 lbs 11/19/2014 Blood Pressure 1: 130/80 Code : 8480-6 BMI: 28.3 Code : 46143-9 Heart Rate 1 : 68 bpm Height: 5'2" Weight: 155 lbs 08/13/2014 Blood Pressure 1: 122/62 Code : 8480-6 BMI: 27.4 Code : 07808-7 Heart Rate 1 : 72 bpm Height: 5'2" Weight: 150 lbs 06/11/2014 Blood Pressure 1: 112/56 Code : 8480-6 BMI: 27.0 Code : 27866-8 Heart Rate 1 : 67 bpm Height: 5'2" SpO2: 98% Weight: 147 lbs 8 oz 04/16/2014 Blood Pressure 1: 120/62 Code : 8480-6 BMI: 26.7 Code : 70503-8 Heart Rate 1 : 68 bpm Height: 5'2" Weight: 146 lbs 03/12/2014 Blood Pressure 1: 132/82 Code : 8480-6 BMI: 27.1 Code : 31126-0 Heart Rate 1 : 64 bpm Height: 5'2" Weight: 148 lbs 02/26/2014 Blood Pressure 1: 104/50 Code : 8480-6 BMI: 25.8 Code : 08810-2 Heart Rate 1 : 64 bpm Height: 5'2" Weight: 141 lbs 11/27/2013 Blood Pressure 1: 122/68 Code : 8480-6 Heart Rate 1: 60 bpm Weight: 153 lbs 10/16/2013 Blood Pressure 1: 136/72 Code : 8480-6 BMI: 27.4 Code : 47161-8 Heart Rate 1 : 80 bpm Height: 5'2" Weight: 150 lbs 07/10/2013 Blood Pressure 1: 126/76 Code : 8480-6 BMI: 27.3 Code : 35902-0 Heart Rate 1 : 80 bpm Height: 5'2" Weight: 149 lbs 06/12/2013 Blood Pressure 1: 168/80 Code : 8480-6 BMI: 27.3 Code : 77251-3 Heart Rate 1 : 76 bpm Height: 5'2" Weight: 149 lbs 8 oz 02/13/2013 Blood Pressure 1: 108/72 Code : 8480-6 BMI: 27.4 Code : 57071-7 Heart Rate 1 : 80 bpm Height: 5'2" Weight: 150 lbs 01/06/2013 Blood Pressure 1: 126/62 Code : 8480-6 BMI: 27.6 Code : 11526-1 Heart Rate 1 : 76 bpm Height: [...] Code : 8480-6 BMI: 27.8 Code : 05617-5 Heart Rate 1 : 80 bpm Height: [...] Present Encounters Encounter Performer Location Codes Date ([id number]) 68280 EST. 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 PATIENT, LEVEL IV Diagnosis: Mixed hyperlipidemia[ICD10: E78.2] Diagnosis: Dementia with Lewy bodies[ICD10: G31.83] Diagnosis: Major depressive disorder, recurrent, mild[ICD10: F33.0] Allie Mcneill MD, [facility] CPT-4: 06272 12/21/2016 ([id number]) 50087 EST. PATIENT, LEVEL IV Diagnosis: Dementia with Lewy bodies[ICD10: G31.83] Diagnosis: Mixed hyperlipidemia[ICD10: E78.2] Diagnosis: Encounter for immunization[ICD10: Z23] Diagnosis: Major depressive disorder, recurrent, mild[ICD10: F33.0] Allie Mcneill MD, [facility] CPT-4: 60035 09/21/2016 ([id number]) 54868 EST. PATIENT, LEVEL III Diagnosis: Encounter for immunization[ICD10: Z23] Diagnosis: Dementia with Lewy bodies[ICD10: G31.83] Diagnosis: Major depressive disorder, recurrent, mild[ICD10: F33.0] Allie Mcneill MD, [facility] CPT-4: 48711 06/22/2016 ([id number]) 89934 EST. PATIENT, LEVEL III Diagnosis: Mixed hyperlipidemia[ICD10: E78.2] Diagnosis: Dementia with Lewy bodies[ICD10: G31.83] Allie Mcneill MD, [facility] CPT-4: 79566 03/23/2016 ([id number]) 84395 EST. PATIENT, LEVEL IV Diagnosis: Dementia with Lewy bodies[ICD10: G31.83] Diagnosis: Other hallucinations[ICD10: R44.2] Diagnosis: Mixed hyperlipidemia[ICD10: E78.2] Allie Mcneill MD [facility] CPT-4: 37159 12/16/2015 ([id number]) 93168 EST. PATIENT, LEVEL IV Diagnosis: Dementia with Lewy bodies[ICD10: G31.83] Diagnosis: Other hallucinations[ICD10: R44.2] Diagnosis: Mixed hyperlipidemia[ICD10: E78.2] Diagnosis: Encounter for immunization[ICD10: Z23] Allie Mcneill MD, [facility] CPT-4: 79549 09/16/2015 ([id number]) 73875 EST. 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 PATIENT, LEVEL IV Diagnosis: HYPERLIPIDEMIA[ICD9: 272.4] Diagnosis: Dementia[ICD9: 294.20] Diagnosis: LEWY BODY DEMENTIA[ICD9: 331.82] Allie Mcneill MD [facility] CPT-4: 55993 02/25/2015 ([id number]) 64069 EST. PATIENT, LEVEL IV Diagnosis: HYPERLIPIDEMIA[ICD9: 272.4] Diagnosis: Dementia[ICD9: 294.20] Diagnosis: LEWY BODY DEMENTIA[ICD9: 331.82] Allie Mcneill MD [facility] CPT-4: 00904 11/19/2014 ([id number]) 23292 EST. PATIENT, LEVEL IV Diagnosis: HYPERLIPIDEMIA[ICD9: 272.4] Diagnosis: LEWY BODY DEMENTIA[ICD9: 331.82] Allie Mcneill MD [facility] CPT-4: 22559 08/13/2014 ([id number]) 49152 EST. PATIENT, LEVEL IV Diagnosis: LEWY BODY DEMENTIA[ICD9: 331.82] Diagnosis: Psychosis[ICD9: 298.9] Allie Mcneill MD [facility] CPT-4: 17079 06/11/2014 ([id number]) 24063 EST. PATIENT, LEVEL III Diagnosis: Lewy body dementia with behavioral disturbance[ICD9: 331.82] Diagnosis: Ulcer of gingiva[ICD9: 523.8] Shari Mcneill MD, [facility] CPT-4: 15160 04/16/2014 ([id number]) 77891 EST. PATIENT, LEVEL IV Diagnosis: Shingles[ICD9: 053.9] Diagnosis: Oral aphthae[ICD9: 528.2] Diagnosis: Yeast infection of the skin[ICD9: 112.3] Allie Mcneill MD, [facility] CPT-4: 24358 03/12/2014 ([id number]) 00444 EST. PATIENT, LEVEL IV Diagnosis: DEMEN NOS 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[ICD9: 294.20] Diagnosis: LEWY BODY DEMENTIA[ICD9: 331.82] Diagnosis: Impacted cerumen of both ears[ICD9: 380.4] Diagnosis: Weight loss[ICD9: 783.21] Diagnosis: Shingles rash[ICD9: 053.9] Allie Mcneill MD, [facility] CPT- 4: 83987 02/26/2014 ([id number]) 15267 EST. PATIENT, LEVEL IV Diagnosis: SENILE DELUSION[ICD9: 290.20] Diagnosis: LEWY BODY DEMENTIA[ICD9: 331.82] Diagnosis: HALLUCINATIONS[ICD9: 780.1] Diagnosis: PSYCHOSIS[ICD9: 298.9] Allie Mcneill MD, [facility] CPT-4: 46898 11/27/2013 ([id number]) 53302 EST. PATIENT, LEVEL IV Diagnosis: LEWY BODY DEMENTIA[ICD9: 331.82] Diagnosis: HALLUCINATIONS[ICD9: 780.1] Diagnosis: PSYCHOSIS[ICD9: 298.9] Allie Mcneill MD, [facility] CPT-4: 23952 10/16/2013 ([id number]) 76944 EST. PATIENT, LEVEL III Diagnosis: LEWY BODY DEMENTIA[ICD9: 331.82] Diagnosis: HALLUCINATIONS[ICD9: 780.1] Allie Mcneill MD, [facility] CPT- 4: 25456 07/10/2013 ([id number]) 37869 EST. PATIENT, LEVEL IV Diagnosis: LEWY BODY DEMENTIA[ICD9: 331.82] Diagnosis: HALLUCINATIONS[ICD9: 780.1] Diagnosis: Dehydration[ICD9: 276.51] Diagnosis: Dementia[ICD9: 294.20] Allie Mcneill MD, [facility] CPT-4: 29051 01/06/2013 [id number] EST. PATIENT, LEVEL III Diagnosis: Candidiasis of breast[ICD9: 112.2] Diagnosis: Seborrheic keratosis[ICD9: 702.19] Diagnosis: Dry skin[ICD9: 782.9] Shari Mcneill MD, [facility] CPT-4: 25157 08/08/2012 ([id number]) 61253 EST. PATIENT, LEVEL IV Diagnosis: LEWY BODY DEMENTIA[ICD9: 331.82] Diagnosis: HALLUCINATIONS[ICD9: 780.1] Allie Mcneill MD, [facility] CPT- 4: 15467 05/23/2012 ([id number]) 80102 EST. PATIENT, LEVEL IV Diagnosis: HALLUCINATIONS[ICD9: 780.1] Diagnosis: LEWY BODY DEMENTIA[ICD9: 331.82] Allie Mcneill MD, [facility] CPT-4: 41293 04/04/2012 ([id number]) 14370 EST. PATIENT, LEVEL IV Diagnosis: Lewy body dementia with behavioral disturbance[ICD9: 331.82] Diagnosis: Hallucinations[ICD9: 780.1] Diagnosis: INSOMNIA IN OTHER DIS[ICD9: 327.01] Alile Mcneill MD, [facility] CPT-4: 17020 03/21/2012 Plan of Care Planned Activity Notes [...] 4 months 08/16/2017 Appointment: Allie Mcneill WPtel: [address] [place], [place] [address] (15 min) Moderate 08/16/2017 Patient Education: Patient [...] Appointment: Allie Mcneill WPtel: [facility]5 [facility] (15 min) Moderate 05/17/2017 Patient Education: Patient [...] Appointment: Allie Mcneill WPtel: [facility]3 [facility] (15 min) Moderate 04/25/2017 Patient Education: Patient Medication Summary Completed 04/25/2017 Appointment: Allie Mcneill WPtel: [facility]4 [facility] (15 min) Moderate 04/19/2017 Visit Plan: Dementia [...] Trazodone taper. 03/22/2017 Appointment: Allie Mcneill WPtel: [facility]3 [facility] (15 min) Moderate 03/22/2017 Patient Education: Patient [...] current medications. 12/21/2016 Appointment: Allie Mcneill WPtel: [address] [place], [place] [address] (15 min) Moderate 12/21/2016 Patient Education: Patient [...] current medications. 09/21/2016 Appointment: Allie Mcneill WPtel: [phone] [facility] (15 min) Moderate 09/21/2016 Patient Education: Patient [...] medications. 06/22/2016 Appointment[phone] (15 min) Moderate 06/22/2016 Patient Education: Patient [...] underlying psychosis. 03/23/2016 Appointment: Allie Mcneill WPtel: [phone] [facility] (15 min) Moderate 03/23/2016 Patient Education: Patient [...] medical problem. 12/16/2015 Appointment: Allie Mcneill WPtel: [phone] [facility] (15 min) Moderate 12/16/2015 Patient Education: Patient [...] medications 09/16/2015 Appointment: [phone] [facility] (15 min) Moderate 09/16/2015 Patient Education: Patient [...] Risperdal for her underlying psychosis. 07/01/2015 Appointment: Osito Allie [facility]el[phone] [facility] Follow up 07/01/2015 Patient Education: Patient Medication [...] 1 month then stop the Marinol as [place] has had resolution of her weight loss. Seasonal allergies with nasal drainage -start amy 02/25/2015 Patient Education: Patient Medication Summary Completed [...] loss. Seasonal allergies with nasal drainage -start amy 11/19/2014 Appointment: Allie Mcneill WPtel: [facility]8 [facility] Follow up 11/19/2014 Patient Education: Patient Medication Summary Completed 11/19/2014 Appointment: Allie Mcneill WPtel: [phone] [facility] Follow up 11/12/2014 Appointment: Allie Mcneill WPtel: [facility]5 [facility] Follow up 09/10/2014 Visit Plan: Hyperlipidemia - [...] for effectiveness. 08/13/2014 Appointment: Allie Mcneill WPtel: [address] [place], [place] [id number] Follow up 08/13/2014 Patient Education: Patient Medication [...] this time. 06/11/2014 Appointment: Allie Mcneill WPtel: [address] [place], [place] [id number] Follow up 06/11/2014 Patient Education: Patient Medication [...] 10 days. 03/12/2014 Appointment: Allie Mcneill WPtel: [facility] Follow up 03/12/2014 Patient Education: Patient Medication [...] Appointment: Allie Mcneill WPtel: [facility] [place] Follow up 02/26/2014 Patient Education: Patient Medication Summary Completed 02/26/2014 Appointment: Allie Mcneill WPtel: [facility] [place] Follow up 02/04/2014 Appointment: Allie Mcneill WPtel: [address] [place], [place] [phone] [place] Follow up 01/19/2014 Visit Plan: Dementia [...] HELP AUGMENT PATIENT' S COMFORT AT THE [facility]. 11/27/2013 Appointment: Allie Mcneill WPtel: [facility] Follow up 11/27/2013 Patient Education: Patient Medication [...] not improve. 10/16/2013 Appointment: Allie Mcneill WPtel: [facility] [place] Follow up 10/16/2013 Patient Education: Patient Medication Summary Completed 10/16/2013 Appointment: Shari Parada WPtel: [facility]5 [phone] [place] Lab Draw 07/31/2013 Patient Education: Patient Medication Summary Completed 07/31/2013 Appointment: Allie Mcneill WPtel: [facility] [place] Lab Draw 07/30/2013 Visit Plan: Lewy body dementia - symptoms improved on higher dose of risperdol - continue to monitor symptoms - family to call if hallucinations worsen again. 07/10/2013 Appointment: Allie Mcneill WPtel: [facility] [place] Follow up 07/10/2013 Patient Education: Patient Medication [...] effecitveness. 06/12/2013 Appointment: [facility]ill [facility]Ptel[phone] [facility] Follow up 06/12/2013 Patient Education: Patient Medication [...] medications. 02/13/2013 Appointment: [facility]ill [facility]Ptel[phone] [facility] Follow up 02/13/2013 Patient Education: Patient Medication [...] check UA. 01/06/2013 Appointment: [facility]ill [facility]Ptel[phone] [facility] Follow up 01/06/2013 Patient Education: Patient Medication [...] check UA. 09/19/2012 Appointment: Allie Mcneill WPtel: [facility]5 [facility] Established Patient Preventative visit 09/19/2012 Patient Education: Patient Medication Summary Completed 09/19/2012 Visit Plan: Candidiasis of breasts-discussed natural and expected course of this diagnosis and to alert me if sympotms do not follow expected course, or if any worse. Keep areas clean and dry. RX sent to patient' s pharmacy and instructed on use. Seborrheic nvgvowwmo-yzpqoqk-fmkjkodfl eucerin cream as needed to back Dry cksu-rlou-neafsxlnf moisturizer such as eucerin to face-call if worsens 08/08/2012 Appointment: Shari Parada WPtel: [facility]5 [phone] [place] rash 08/08/2012 Patient Education: Patient Medication Summary Completed 08/08/2012 Appointment: Allie Mcneill WPtel: [facility]5 [facility] Injection 07/25/2012 Patient Education: Patient Medication Summary [...] her rest. 05/23/2012 Appointment: Allie Mcneill WPtel: [facility] Follow up 05/23/2012 Patient Education: Patient Medication Summary Completed 05/23/2012 Appointment: Shari Parada WPtel[phone] Lab Draw 04/05/2012 Patient Education: Patient Medication [...] in the current dosing regimen. 04/04/2012 Appointment: OsitoMariyay [facility]Ptel[phone] [facility] Follow up 04/04/2012 Patient Education: Patient Medication Summary Completed 04/04/2012 Visit Plan: Lewy Body Dementia - pt has been having hallucinations, auditory, visual, gustatory, she was recently in the hospital, then was transfered to a geriatric psychiatric facility in [place] for inpatient psych treatment. She was discharged [...] the home doors are opened. 03/21/2012 Appointment: Osito Allie [facility]Ptel[phone] [facility] New Patient 03/21/2012 Patient Education: Patient Medication [...] loss. Seasonal allergies with nasal drainage -start amy . Lewy Body's Dementia - Pt with [...] medical problem. . Lewy Body Dementia - pt has been having hallucinations, auditory, visual, gustatory, she was recently in the hospital, then was transfered to a geriatric psychiatric facility in [place] for inpatient psych treatment. She was discharged [...] ringers when the home doors are opened. REMOVE UPPER AND LOWER DENTURES FOR THE [...] uncontrolled.Patient's daughter verbalized understanding of plan. . Candidiasis of breasts-discussed natural and expected course of this diagnosis and to alert me if sympotms do not follow expected course, or if any worse. Keep areas clean and dry. RX sent to patient's pharmacy and instructed on use. Seborrheic nouocfbxr-kjjvbta-nsiqejwxo eucerin cream as needed to back Dry ribw-oxdg-dcxcpnval moisturizer such as eucerin to face-call if worsens . Lewy Body Dementia - Pt with [...] loss. Seasonal allergies with nasal drainage -start amy . Psychosis - increase Risperdal to 0.5mg [...] in blood pressure readings at home. . Lewy Body's Dementia - Pt with [...] September 2017 and q 4 months . Dementia with Behaviors - I have [...] TO HELP AUGMENT PATIENT'S COMFORT AT THE [facility]. . Hyperlipidemia - pt has been counseled [...] psychosis. . Lewy Body Dementia - pt with [...] closely monitor the medications for effectiveness. . Hyperlipidemia - pt has been counseled [...] underlying psychosis. . Lewy Body Dementia - Pt with [...] powder. Dysuria - check UA. . Lewy Body Dementia - Pt with [...]
--- OUTSIDE RECORDS SUMMARY | 2018-01-02 19:52 | XMS REPORT | CCD ---
Author Author Allie Mcneill Organization Allie Mcneill MD, [facility] Address [address] [place] [address] Phone Care Team Providers Care Knocker Out Name Role Phone PP Unavailable CCM Unavailable Summary Purpose Interface Exchange Insurance Providers Payer name Policy type / Coverage type Covered republican ID Effective Begin Date Effective End Date HUMANA CLAIMS Commercial Insurance [id number] Unknown Family history Daughter Diagnosis Age At [...] Codes Description Effective Dates Living arrangements Unknown Assisted [facility] 12/21/2016 Marital status Unknown 03/21/2012 Number of children Unknown 5 03/21/[address]: 076867716 Nonsmoker 03/21/[address]: 099013964 Never drinks alcohol 03/21/2012 Allergies, Adverse Reactions, [...] Start Date Stop Date Status Fill Instructions losartan 50 mg tablet RxNorm: 135787 TAKE 1 TABLET BY MOUTH EVERY DAY 11/05/2017 06/02/2018 Active Generic For:*COZAAR 50MG 11/02/2017 2:22:04 PM Exelon Patch 9.5 mg/24 hr transdermal RxNorm: 152306 APPLY ONE (1) PATCH ONCE DAILY. 10/19/2017 No Stop Date Active Depakote 500 mg tablet,delayed release RxNorm: 6555627 1 Tablet(s) PO daily 10/15/2017 10/09/2018 Active Protonix 20 mg tablet,delayed release RxNorm: 246271 TAKE 1 TABLET BY MOUTH DAILY 08/06/2017 03/03/2018 Active Generic For:*PROTONIX 20MG 08/06/2017 2:35:53 PM Ativan 0.5 mg tablet RxNorm: 929012 1/2 Tablet(s) PO Q6 PRN as needed 1/2 po q 2 pm 08/02/2017 09/30/2017 Inactive Depakote 500 mg tablet,delayed release RxNorm: 0158288 1 Tablet(s) PO daily 06/22/2017 10/14/2017 Inactive Exelon Patch 9.5 mg/24 hr transdermal RxNorm: 876732 APPLY ONE (1) PATCH ONCE DAILY. 05/14/2017 10/10/2017 Inactive Protonix 20 mg tablet,delayed release RxNorm: 532096 1 Tablet(s) PO daily 05/08/2017 08/05/2017 Inactive Risperdal 0.25 mg tablet RxNorm: 331464 Tablet(s) UD .25 in am and .5 in hs and .25 prn for psychosis/hallucinations 04/26/2017 05/16/2017 Inactive Nuedexta 20 mg-10 mg capsule RxNorm: 7240454 1 Capsule(s) PO daily x 7 days then go to one cap BID 03/22/2017 04/24/2017 Inactive Ativan 0.5 mg tablet RxNorm: 863131 1/2 Tablet(s) PO Q6 PRN as needed 1/2 po q 2 pm 03/21/2017 08/01/2017 Inactive Keflex 500 mg capsule RxNorm: 410763 1 Capsule(s) PO TID 201603/05/2017 Inactive Keflex 500 mg capsule RxNorm: 072289 1 Capsule(s) PO TID 201603/15/2017 Inactive Ativan 0.5 mg tablet RxNorm: 093482 1/2 Tablet(s) PO Q6 PRN as needed 1/2 po q 2 pm 02/28/2017 03/20/2017 Inactive Protonix 20 mg tablet,delayed release RxNorm: 822054 1 Tablet(s) PO daily 02/07/2017 05/07/2017 Inactive Protonix 20 mg tablet,delayed release RxNorm: 361586 1 Tablet(s) PO daily 02/07/2017 02/06/2017 Inactive amoxicillin 500 mg capsule RxNorm: 720696 1 Capsule(s) PO TID 01/11/2017 01/10/2017 Inactive Patient at [facility] amoxicillin 500 mg capsule RxNorm: 408495 1 Capsule(s) PO TID 01/11/2017 01/17/2017 Inactive Patient at [facility] Exelon Patch 9.5 mg/24 hr transdermal RxNorm: 654373 APPLY ONE (1) PATCH ONCE DAILY. 12/14/2016 05/12/2017 Inactive Flonase 50 mcg/actuation nasal spray,suspension RxNorm: 8026404 1 Welches each nostril NASAL BID 10/30/2016 11/28/2016 Inactive 2 spray each nostril Namenda 10 mg tablet RxNorm: 272020 1 Tablet(s) PO BID 201609/04/2017 Inactive Risperdal 0.25 mg tablet RxNorm: 165842 1 Tablet(s) PO QHS 01/22/2017 Inactive trazodone 50 mg tablet RxNorm: 292577 1.5 Tablet(s) PO QHS 03/29/2017 Inactive Exelon Patch 9.5 mg/24 hr transdermal RxNorm: 094756 APPLY ONE (1) PATCH ONCE DAILY. 07/18/2016 12/13/2016 Inactive trazodone 50 mg tablet RxNorm: 053547 1.5 Tablet(s) PO QHS 09/24/2016 Inactive Exelon Patch 9.5 mg/24 hr transdermal RxNorm: 434055 APPLY ONE (1) PATCH ONCE DAILY. 05/15/2016 05/14/2016 Inactive Exelon Patch 9.5 mg/24 hr transdermal RxNorm: 040851 APPLY ONE (1) PATCH ONCE DAILY. 05/15/2016 10/18/2017 Inactive Risperdal 0.25 mg tablet RxNorm: 928502 1 Tablet(s) PO QHS 11/201509/24/2016 Inactive Exelon Patch 9.5 mg/24 hr transdermal RxNorm: 201641 APPLY ONE (1) PATCH ONCE DAILY. 2016 No Stop Date Active Exelon Patch 9.5 mg/24 hr transdermal RxNorm: 559367 APPLY ONE (1) PATCH ONCE DAILY. 2016 02/21/2016 Inactive trazodone 50 mg tablet RxNorm: 061055 1.5 Tablet(s) PO QHS 01/201605/28/2016 Inactive simvastatin 20 mg tablet RxNorm: 260190 1 Tablet(s) PO daily 01/31/2017 Inactive clopidogrel 75 mg tablet RxNorm: 155486 1 Tablet(s) PO daily 01/31/2017 Inactive Celexa 20 mg tablet RxNorm: 951058 1 Tablet(s) PO daily 201501/31/2017 Inactive [place] Instant Breakfast Juice Drink oral liquid RxNorm: PO QHS after meals 02/02/2016 12/20/2016 Inactive Flonase 50 mcg/actuation nasal spray,suspension RxNorm: 6097795 1 Welches each nostril NASAL BID 12/02/2015 03/30/2016 Inactive 2 spray each nostril Namenda 10 mg tablet RxNorm: 816093 1 Tablet(s) PO BID 201510/06/2016 Inactive Risperdal 0.25 mg tablet RxNorm: 183134 1 Tablet(s) PO QHS 02/29/2016 Inactive Exelon Patch 9.5 mg/24 hr transdermal RxNorm: 696829 1 Patch TD daily 1 Patch TD daily 07/23/2015 01/18/2016 Inactive Exelon Patch 9.5 mg/24 hr transdermal RxNorm: 098034 1 Patch TD daily 07/20/2015 07/22/2015 Inactive Celexa 20 mg tablet RxNorm: 647712 1 Tablet(s) PO daily 201402/06/2016 Inactive Flonase 50 mcg/actuation nasal spray,suspension RxNorm: 187200 1 Welches each nostril NASAL BID 06/04/2015 10/01/2015 Inactive 2 spray each nostril Risperdal 0.25 mg tablet RxNorm: 184237 1 Tablet(s) PO QHS 08/01/2015 Inactive Exelon Patch 9.5 mg/24 hr transdermal RxNorm: 379904 1 Patch TD daily 04/28/2015 07/19/2015 Inactive Vitamin D3 2,000 unit capsule RxNorm: 977422 1 Capsule(s) PO daily 02/10/2015 03/15/2016 Inactive Calcium 600 + D(3) 600 mg (1,500 mg)-400 unit tablet RxNorm: 891389 1 Tablet(s) PO daily 02/09/2015 No Stop Date Active Celexa 20 mg tablet RxNorm: 207934 1 Tablet(s) PO daily 201412/09/2014 Inactive Celexa 20 mg tablet RxNorm: 316747 1 Tablet(s) PO daily 201407/07/2015 Inactive Flonase 50 mcg/actuation nasal spray,suspension RxNorm: 614526 1 Welches each nostril NASAL BID 11/27/2014 03/26/2015 Inactive 2 spray each nostril Casi Allergy 180 mg tablet RxNorm: 994999 1 Tablet(s) PO daily 11/19/2014 12/18/2014 Inactive Marinol 2.5 mg capsule RxNorm: 097080 1 Capsule(s) PO TID 11/1603/15/2015 Inactive [SAVINGS FOR UNINSURED PATIENTS -- BIN:[id number], PCN: [id number], Group: [id number], ID# [id number], Process claim through [employer], for questions: . THIS IS NOT INSURANCE.] Namenda 10 mg tablet RxNorm: 089025 1 Tablet(s) PO BID 201402/08/2015 Inactive Marinol 2.5 mg capsule RxNorm: 828289 1 Capsule(s) PO TID 10/1211/10/2014 Inactive Namenda 10 mg tablet RxNorm: 251468 1 Tablet(s) PO BID 201410/11/2014 Inactive Flonase 50 mcg/actuation nasal spray,suspension RxNorm: 890338 2 Welches NASAL BID 08/17/2014 11/26/2014 Inactive 2 spray each nostril Exelon Patch 9.5 mg/24 hr transdermal RxNorm: 076323 1 Patch TD daily 07/10/2014 10/07/2014 Inactive Risperdal 0.25 mg tablet RxNorm: 817463 1 Tablet(s) PO QHS 05/201405/03/2015 Inactive Namenda XR 14 mg capsule sprinkle,ER 24hr RxNorm: 027705 1 Capsule(s) PO daily 04/13/2014 10/11/2014 Inactive acyclovir 800 mg tablet RxNorm: 529433 1 Tablet(s) PO TID 03/1203/18/2014 Inactive nystatin 100,000 unit/gram topical powder RxNorm: 628044 1 Gram(s) TOP QID apply to tissue under breasts and if needed other folded skin ears with evidence of yeast infection 03/12/2014 03/21/2014 Inactive simvastatin 20 mg tablet RxNorm: 256613 1 Tablet(s) PO daily 02/15/2014 Inactive trazodone 50 mg tablet RxNorm: 233614 1 1/2 Tablet(s) PO daily 02/16/2014 02/15/2014 Inactive trazodone 50 mg tablet RxNorm: 408892 1 1/2 Tablet(s) PO daily 02/16/2014 03/17/2014 Inactive clopidogrel 75 mg tablet RxNorm: 836041 1 Tablet(s) PO daily 02/10/2015 Inactive Exelon 4.6 mg/24 hour transdermal 24 hour patch RxNorm: 983113 1 TD daily 02/16/2014 03/17/2014 Inactive simvastatin 20 mg tablet RxNorm: 190966 1 Tablet(s) PO daily 06/15/2014 Inactive Vitamin B-12 2,500 mcg sublingual tablet RxNorm: 177093 1 Tablet(s) SL daily 01/22/2014 No Stop Date Active Ativan 0.5 mg tablet RxNorm: 608698 1/2 Tablet(s) PO Q6 PRN 1/2 po q 2 pm and 1 po q 6 hours prn anxiety 10/16/20132013 Inactive Cipro 500 mg tablet RxNorm: 888252 1 Tablet(s) PO BID correction 08/04/2013 08/08/2013 Inactive Cipro 500 mg tablet RxNorm: 626412 2 Tablet(s) PO BID 201208/03/2013 Inactive Cipro 500 mg tablet RxNorm: 869279 2 Tablet(s) PO BID 201207/31/2013 Inactive Influenza Virus Vaccine 0.5 mL RxNorm: IM 07/07/2013 07/07/2013 Inactive clopidogrel 75 mg tablet RxNorm: 062109 1 Tablet(s) PO daily 02/15/2014 Inactive risperidone 0.5 mg tablet RxNorm: 732559 1 Tablet(s) PO TID 01/21/2014 Inactive atorvastatin 20 mg tablet RxNorm: 421532 1 Tablet(s) PO QPM 01/21/2014 Inactive TAKE ONE TABLET BY MOUTH EVERY DAY risperidone 0.5 mg tablet RxNorm: 657602 1 Tablet(s) PO TID 02/201306/24/2013 Inactive Risperdal 0.25 mg tablet RxNorm: 293315 Tablet(s) PO TAKE 1 TABLET AT NOON AND TAKE 1 TABLET AT NIGHT IF NEEDED FOR HALLUCINATIONS 201206/11/2013 Inactive clopidogrel 75 mg tablet RxNorm: 207919 1 Tablet(s) PO daily 06/24/2013 Inactive Risperdal 0.25 mg tablet RxNorm: 738024 1 Tablet(s) PO noon one at noon and one in night if needed for hallucinations. 09/06/2012 01/01/2013 Inactive atorvastatin 20 mg tablet RxNorm: 125249 1 Tablet(s) PO QPM 06/24/2013 Inactive TAKE ONE TABLET BY MOUTH EVERY DAY risperidone 0.5 mg tablet RxNorm: 730256 1 Tablet(s) PO BID 06/11/2013 Inactive atorvastatin 20 mg tablet RxNorm: 454464 Tablet(s) PO 201109/05/2012 Inactive TAKE ONE TABLET BY MOUTH EVERY DAY nystatin 100,000 unit/g Topical Powder RxNorm: 063649 1 Gram(s) TOP BID 08/08/2012 08/27/2012 Inactive atorvastatin 20 mg tablet RxNorm: 138474 Tablet(s) PO 201108/11/2012 Inactive TAKE ONE TABLET BY MOUTH EVERY DAY risperidone 0.5 mg tablet RxNorm: 831464 1 Tablet(s) PO BID 03/201207/12/2012 Inactive Risperdal 0.25 mg tablet RxNorm: 655533 1 Tablet(s) PO noon one at noon and one in night if needed for hallucinations. 06/13/2012 09/05/2012 Inactive clopidogrel 75 mg tablet RxNorm: 235002 1 Tablet(s) PO daily 09/05/2012 Inactive atorvastatin 20 mg tablet RxNorm: 947405 1 Tablet(s) PO daily 05/10/2012 06/08/2012 Inactive Cipro 500 mg Tab RxNorm: 619354 1 Tablet(s) PO BID 201104/11/2012 Inactive Risperdal 0.25 mg tablet RxNorm: 980697 1 Tablet(s) PO noon one at noon and one in night if needed for hallucinations. 03/22/2012 06/12/2012 Inactive Risperdal 0.25 mg Tab RxNorm: 983196 1 Tablet(s) PO noon one at noon and one in night if needed for hallucinations. 03/21/2012 03/21/2012 Inactive Vitamin D3 2,000 unit tablet RxNorm: 807606 1 Tablet(s) PO daily No Start Date Active Protonix 20 mg tablet,delayed release RxNorm: 877010 1 Tablet(s) PO daily No Start Date Active Vitamin B-12 500 mcg tablet RxNorm: 810156 1 Tablet(s) PO daily No Start Date Active lorazepam 0.5 mg tablet RxNorm: 356041 1 Tablet(s) PO daily No Start Date Active melatonin 3 mg tablet RxNorm: 827490 2 Tablet(s) PO QHS No Start Date Active Tylenol 500 mg RxNorm : 1 -2 Tablet(s) PO Q6 as needed pain or fever No Start Date Active Vitamin D3 2,000 unit capsule RxNorm: 990157 1 Capsule(s) PO daily No Start Date 02/09/2015 Inactive trazodone 50 mg tablet RxNorm: 460015 1.5 Tablet(s) PO QHS No Start Date 02/08/2016 Inactive Trazadone 25 mg RxNorm : 3 PO QHS No Start Date 02/15/2014 Inactive [place] Instant Breakfast Juice Drink oral liquid RxNorm: PO TID after meals No Start Date 02/01/2016 Inactive Vitamin B-12 2,500 mcg sublingual tablet RxNorm: 117230 1 Tablet(s) SL daily No Start Date 01/21/2014 Inactive Tums Calcium for Life Bone 300 mg (750 mg) chewable tablet RxNorm: 956681 2 Tablet (s) PO daily No Start Date 02/12/2013 Inactive calcium 300 mg chewable tablet RxNorm: 1 Tablet(s) PO daily No Start Date 12/03/2015 Inactive with vitamin d Marinol 2.5 mg capsule RxNorm: 750853 1 Capsule(s) PO ac tid No Start Date 03/11/2014 Inactive Namenda XR 14 mg capsule sprinkle,ER 24hr RxNorm: 619151 1 Capsule(s) PO daily No Start Date 04/12/2014 Inactive clopidogrel 75 mg tablet RxNorm: 851303 1 Tablet(s) PO daily No Start Date 05/09/2012 Inactive Namenda 5 mg Tab RxNorm: 715025 1 Tablet(s) PO BID No Start Date 04/12/2014 Inactive Depakote 500 mg tablet,delayed release RxNorm: 2647771 1 Tablet(s) PO daily No Start Date 06/21/2017 Inactive Zocor 20 mg tablet RxNorm: 301836 1 Tablet(s) PO daily No Start Date 08/12/2014 Inactive losartan 50 mg tablet RxNorm: 905626 1 Tablet(s) PO daily No Start Date 11/04/2017 Inactive Depakote ER 250 mg tablet,extended release RxNorm: 3093468 1 Tablet(s) PO BID No Start Date 12/31/2013 Inactive Calcium 600 + D(3) oral RxNorm: 404841 oral No Start Date 02/08/2015 Inactive risperidone 0.5 mg tablet RxNorm: 444826 1 Tablet(s) PO BID No Start Date 06/12/2012 Inactive atorvastatin 20 mg tablet RxNorm: 410375 1 Tablet(s) PO daily No Start Date 05/09/2012 Inactive Flonase 50 mcg/actuation nasal spray,suspension RxNorm: 143572 2 Welches NASAL BID No Start Date 08/16/2014 Inactive 2 spray each nostril Exelon 4.6 mg/24 hour transdermal 24 hour patch RxNorm: 574500 1 TD daily No Start Date 02/15/2014 [...] depression 06/11/2014 skin lesion 04/16/2014 reported by senior care skin lesion 03/12/2014 weight loss 02/26/2014 medication follow up 11/27/2013 anxiety 10/16/2013 memory loss 07/10/2013 --Improved vaccination against influenza 07/07/2013 memory loss 06/12/2013 hallucination 02/13/2013 hallucination 01/06/2013 rash 09/19/2012 skin lesion 08/08/2012 vaccination against influenza 07/25/2012 memory loss 05/23/2012 hallucination 04/04/2012 dementia memory loss 03/21/2012 Results Observation Observation Code Item Item Code Result Date Hepatic Pmx417 ALBUMIN 3.3 g/dL 10/22/2017 Hepatic Yrs388 TPRO 5.7 g/dL 10/22/2017 Hepatic Sfv329 GLOB 2.4 g/dL 10/22/2017 Hepatic Vgm658 A/G Ratio 1.4 Ratio 10/22/2017 Hepatic Kle182 ALK PHOS 72 U/L 10/22/2017 Hepatic Zws258 ALT(SGPT) 5 U/L 10/22/2017 Hepatic Sfo256 AST(SGOT) 9 U/L 10/22/2017 Hepatic Jmz748 BILI T 0.3 mg/dL 10/22/2017 Hepatic Vmz109 BILI D 0.0 mg/dL 10/22/2017 Hepatic Zkd746 BILI I 0.3 mg/dL 10/22/2017 Valproic Acid Jcf258 VALPROIC 44.0 ug/ml 10/22/2017 Hepatic Nkx422 ALBUMIN 3.8 g/dL 09/20/2017 Hepatic Dge675 TPRO 6.3 g/dL 09/20/2017 Hepatic Rok273 GLOB 2.5 g/dL 09/20/2017 Hepatic Png991 A/G Ratio 1.5 Ratio 09/20/2017 Hepatic Jeo508 ALK PHOS 67 U/L 09/20/2017 Hepatic Zqs527 ALT(SGPT) 5 U/L 09/20/2017 Hepatic Ued247 AST(SGOT) 11 U/L 09/20/2017 Hepatic Voe762 BILI T 0.4 mg/dL 09/20/2017 Hepatic Zpt857 BILI D 0.1 mg/dL 09/20/2017 Hepatic Nkh852 BILI I 0.3 mg/dL 09/20/2017 Valproic Acid Wcf716 VALPROIC 10.0 ug/ml 09/20/2017 Hepatic Uos744 ALBUMIN 3.5 g/dL 08/23/2017 Hepatic Ebk427 TPRO 6.1 g/dL 08/23/2017 Hepatic Zzl201 GLOB 2.6 g/dL 08/23/2017 Hepatic Rrl391 A/G Ratio 1.4 Ratio 08/23/2017 Hepatic Tlx311 ALK PHOS 63 U/L 08/23/2017 Hepatic Vwe777 ALT(SGPT) 5 U/L 08/23/2017 Hepatic Piv472 AST(SGOT) 9 U/L 08/23/2017 Hepatic Pjw399 BILI T 0.3 mg/dL 08/23/2017 Hepatic Hwo441 BILI D 0.1 mg/dL 08/23/2017 Hepatic Ukr617 BILI I 0.2 mg/dL 08/23/2017 Valproic Acid Sbw823 VALPROIC 44.0 ug/ml 08/23/2017 Hepatic Jvo592 ALBUMIN 3.5 g/dL 07/23/2017 Hepatic Sid150 TPRO 5.9 g/dL 07/23/2017 Hepatic Dii954 GLOB 2.4 g/dL 07/23/2017 Hepatic Kpg290 A/G Ratio 1.5 Ratio 07/23/2017 Hepatic Ozl133 ALK PHOS 61 U/L 07/23/2017 Hepatic Nap387 ALT(SGPT) 6 U/L 07/23/2017 Hepatic Fwi119 AST(SGOT) 11 U/L 07/23/2017 Hepatic Ace997 BILI T 0.3 mg/dL 07/23/2017 Hepatic Zou977 BILI D 0.1 mg/dL 07/23/2017 Hepatic Iyy006 BILI I 0.2 mg/dL 07/23/2017 Valproic Acid Glk498 VALPROIC 37.0 ug/ml 07/23/2017 Hepatic Epr937 ALBUMIN 3.6 g/dL 06/26/2017 Hepatic Lga047 TPRO 6.0 g/dL 06/26/2017 Hepatic Xss791 GLOB 2.4 g/dL 06/26/2017 Hepatic Czb482 A/G Ratio 1.5 Ratio 06/26/2017 Hepatic Zjr929 ALK PHOS 64 U/L 06/26/2017 Hepatic Vzj384 ALT(SGPT) 8 U/L 06/26/2017 Hepatic Vhz846 AST(SGOT) 11 U/L 06/26/2017 Hepatic Elv837 BILI T 0.3 mg/dL 06/26/2017 Hepatic Ezg654 BILI D 0.1 mg/dL 06/26/2017 Hepatic Blh160 BILI I 0.2 mg/dL 06/26/2017 Valproic Acid Efj459 VALPROIC 45.0 ug/ml 06/26/2017 Bili D Ord93 BILI D 0.1 mg/dL 05/18/2017 Bili D Ord93 BILI I 0.3 mg/dL 05/18/2017 Valproic Acid Tmk584 VALPROIC 27.0 ug/ml 05/18/2017 Comp Metabolic Nde413 NA 140 mEq/L 05/18/2017 Comp Metabolic Veg165 K 4.2 mEq/L 05/18/2017 Comp Metabolic Yxj359 CL 103 mEq/L 05/18/2017 Comp Metabolic Chx373 CO2 27.0 mEq/L 05/18/2017 Comp Metabolic Pzk472 ANION GAP 14 05/18/2017 Comp Metabolic Oao846 GLUCOSE 85 mg/dL 05/18/2017 Comp Metabolic Srq678 Creat 0.6 mg/dL 05/18/2017 Comp Metabolic Ihb200 eGFR 109 ml/min/1.73m2 05/18/2017 Comp Metabolic Cwg806 BUN 8 mg/dL 05/18/2017 Comp Metabolic Syp531 B/C Ratio 14.3 Ratio 05/18/2017 Comp Metabolic Tqj330 CALCIUM 8.6 mg/dL 05/18/2017 Comp Metabolic Bfl275 ALK PHOS 85 U/L 05/18/2017 Comp Metabolic Nhq731 AST(SGOT) 10 U/L 05/18/2017 Comp Metabolic Yca570 ALT(SGPT) 6 U/L 05/18/2017 Comp Metabolic Jrr787 BILI T 0.4 mg/dL 05/18/2017 Comp Metabolic Ces610 ALBUMIN 3.7 g/dL 05/18/2017 Comp Metabolic Tbi981 TPRO 6.3 g/dL 05/18/2017 Comp Metabolic Ona537 GLOB 2.6 g/dL 05/18/2017 Comp Metabolic Rhg815 A/G Ratio 1.4 Ratio 05/18/2017 Comp Metabolic Ova967 Osmo 277 mOsmo 05/18/2017 Urinalysis Ord28 U-Color [...] 04/11/2017 Urinalysis Ord28 U-Yeast NEGATIVE 04/11/2017 A1C 2270896 A1C HPLC 64761-0 5.9 % 07/08/2013 CHEM 14 6045538 AST 14 U/L 07/07/2013 CHEM 14 2758928 ALT 10 IU/L 07/07/2013 CHEM 14 6550913 BUN 11 MG/DL 07/07/2013 CHEM 14 6986335 ALBUMIN 4.1 GM/DL 07/07/2013 CHEM 14 3575028 CHLORIDE 107 MMOL/L 07/07/2013 CHEM 14 0913482 BILI TOT 0.4 MG/DL 07/07/2013 CHEM 14 9150467 ALK PHOS 54 U/L 07/07/2013 CHEM 14 4255682 SODIUM 141 MMOL/L 07/07/2013 CHEM 14 3006022 CREATININE 0.70 MG/DL 07/07/2013 CHEM 14 8539508 CALCIUM 9.0 MG/DL 07/07/2013 CHEM 14 6464562 POTASSIUM 4.2 MMOL/L 07/07/2013 CHEM 14 5576440 PROT TOT 6.5 GM/DL 07/07/2013 CHEM 14 4286037 GLUCOSE 102 MG/DL 07/07/2013 CHEM 14 9280661 BICARB 28 MMOL/L 07/07/2013 CHEM 14 1591901 ANION GAP 6 MEQ/L 07/07/2013 GFR CALC 9449519 GFR AA >60 ML/MIN 07/07/2013 GFR CALC 1330892 GFR NON-AA >60 ML/MIN 07/07/2013 CBC 4103436 WBC 8.9 10e9/L 07/07/2013 CBC 8206042 RBC 4.27 10e12/L 07/07/2013 CBC 6189923 HGB 12.7 g/dL 07/07/2013 CBC 3371039 HCT DET 39.0 % 07/07/2013 CBC 9442957 MCV 91.3 fL 07/07/2013 CBC 5473826 MCH 29.7 pg 07/07/2013 CBC 2488744 MCHC 32.6 g/dL 07/07/2013 CBC 3602105 PLT 273 10e9/L 07/07/2013 CBC 6670254 MPV 11.0 fL 07/07/2013 CBC 4263335 TORREY % 69.1 % 07/07/2013 CBC 2269130 LY % 19.6 % 07/07/2013 CBC 7047504 MON % 8.5 % 07/07/2013 CBC 6944603 EOS % 2.6 % 07/07/2013 CBC 2576596 BASO % 0.2 % 07/07/2013 CBC 7817151 RDW 13.0 % 07/07/2013 CBC 9094453 ABS TORREY 6.15 10e9/L 07/07/2013 CBC 5958877 ABS LYMPH 1.74 10e9/L 07/07/2013 CBC 0535116 ABS MONO 0.76 10e9/L 07/07/2013 CBC 3995407 ABS EOS 0.23 10e9/L 07/07/2013 CBC 6024298 ABS BASO 0.02 10e9/L 07/07/2013 CBC 0547588 RDW-SD 42.3 fL 07/07/2013 LIPID GRP HDL TEST 47 MG/DL 07/07/2013 LIPID GRP TRIG 121 MG/DL 07/07/2013 LIPID GRP TEST LDL 63 MG/DL 07/07/2013 LIPID GRP CHOL 134 MG/DL 07/07/2013 LIPID GRP RCHOL/HDL 2.85 RATIO 07/07/2013 CBC 5839241 WBC 7.2 10e9/L 01/06/2013 CBC 3019511 RBC 4.22 10e12/L 01/06/2013 CBC 3725402 HGB 12.6 g/dL 01/06/2013 CBC 1476242 HCT DET 38.3 % 01/06/2013 CBC 3424213 MCV 90.8 fL 01/06/2013 CBC 4166368 MCH 29.9 pg 01/06/2013 CBC 7229699 MCHC 32.9 g/dL 01/06/2013 CBC 1235108 PLT 287 10e9/L 01/06/2013 CBC 2262036 MPV 11.0 fL 01/06/2013 CBC 6972537 TORREY % 68.0 % 01/06/2013 CBC 8452524 LY % 21.6 % 01/06/2013 CBC 1622981 MON % 9.0 % 01/06/2013 CBC 7058728 EOS % 1.3 % 01/06/2013 CBC 2546104 BASO % 0.1 % 01/06/2013 CBC 6012697 RDW 13.3 % 01/06/2013 CBC 4605076 ABS TORREY 4.90 10e9/L 01/06/2013 CBC 1392525 ABS LYMPH 1.56 10e9/L 01/06/2013 CBC 4925688 ABS MONO 0.65 10e9/L 01/06/2013 CBC 9952515 ABS EOS 0.09 10e9/L 01/06/2013 CBC 6708301 ABS BASO 0.01 10e9/L 01/06/2013 CBC 5308559 RDW-SD 43.0 fL 01/06/2013 VIT B 12 7093428 VIT B 12 >2000 PG/ML 01/06/2013 FREE T4 4173126 FREE T4 1.19 NG/DL 01/06/2013 CHEM 14 8597101 AST 14 U/L 01/06/2013 CHEM 14 3836828 ALT 12 IU/L 01/06/2013 CHEM 14 1118345 BUN 9 MG/DL 01/06/2013 CHEM 14 7353408 ALBUMIN 4.2 GM/DL 01/06/2013 CHEM 14 6766042 CHLORIDE 108 MMOL/L 01/06/2013 CHEM 14 8519832 BILI TOT 0.4 MG/DL 01/06/2013 CHEM 14 8909890 ALK PHOS 74 U/L 01/06/2013 CHEM 14 2449766 SODIUM 142 MMOL/L 01/06/2013 CHEM 14 3347792 CREATININE 0.62 MG/DL 01/06/2013 CHEM 14 8807394 CALCIUM 9.0 MG/DL 01/06/2013 CHEM 14 4574206 POTASSIUM 4.3 MMOL/L 01/06/2013 CHEM 14 9875814 PROT TOT 6.6 GM/DL 01/06/2013 CHEM 14 1769819 GLUCOSE 94 MG/DL 01/06/2013 CHEM 14 4658885 BICARB 25 MMOL/L 01/06/2013 CHEM 14 6488791 ANION GAP 9 MEQ/L 01/06/2013 GFR CALC 2200041 GFR AA >60 ML/MIN 01/06/2013 GFR CALC 4962734 GFR NON-AA >60 ML/MIN 01/06/2013 TSH 4211755 TSH 1.814 uIU/ML 01/06/2013 URINALYSIS NONAUTO W/O SCOPE 82204 Specific [place] 1.020 DateTime(Free Text in Aprima) URINALYSIS NONAUTO W/O SCOPE 78383 PH 6.0 DateTime(Free Text in Aprima) URINALYSIS NONAUTO W/O SCOPE 20246 GLUCOSE negative DateTime(Free Text in Aprima) URINALYSIS NONAUTO W/O SCOPE 28914 Protein negative DateTime(Free Text in Aprima) URINALYSIS NONAUTO W/O SCOPE 58232 Blood negative DateTime( Free Text in Aprima) URINALYSIS NONAUTO W/O SCOPE 31176 Bilirubin negative DateTime(Free Text in Aprima) URINALYSIS NONAUTO W/O SCOPE 45882 Ketones trace DateTime(Free Text in Aprima) URINALYSIS NONAUTO W/O SCOPE 96102 Urobilinogen negative DateTime(Free Text in Aprima) URINALYSIS NONAUTO W/O SCOPE 85230 Nitrite negative DateTime(Free Text in Aprima) URINALYSIS NONAUTO W/O SCOPE 08729 Leukocytes 1+ DateTime(Free Text in Aprima) URINALYSIS NONAUTO W/O SCOPE 47039 Specific [place] 1.005 DateTime(Free Text in Aprima) URINALYSIS NONAUTO W/O SCOPE 92698 PH 5 DateTime(Free Text in Aprima) URINALYSIS NONAUTO W/O SCOPE 85019 GLUCOSE neg DateTime( Free Text in Aprima) URINALYSIS NONAUTO W/O SCOPE 42997 Protein neg DateTime( Free Text in Aprima) URINALYSIS NONAUTO W/O SCOPE 74284 Blood neg DateTime(Free Text in Aprima) URINALYSIS NONAUTO W/O SCOPE 40986 Bilirubin neg DateTime(Free Text in Aprima) URINALYSIS NONAUTO W/O SCOPE 14860 Ketones neg DateTime( Free Text in Aprima) URINALYSIS NONAUTO W/O SCOPE 70972 Urobilinogen neg DateTime(Free Text in Aprima) URINALYSIS NONAUTO W/O SCOPE 55153 Nitrite neg DateTime( Free Text in Aprima) URINALYSIS NONAUTO W/O SCOPE 14205 Leukocytes neg DateTime(Free Text in Aprima) URINALYSIS NONAUTO W/O SCOPE 98134 Specific [place] 1.010 DateTime(Free Text in Aprima) URINALYSIS NONAUTO W/O SCOPE 21606 PH 6 DateTime(Free Text in Aprima) URINALYSIS NONAUTO W/O SCOPE 45534 GLUCOSE DateTime( Free Text in Aprima) URINALYSIS NONAUTO W/O SCOPE 76395 Protein DateTime( Free Text in Aprima) URINALYSIS NONAUTO W/O SCOPE 42847 Blood DateTime(Free Text in Aprima) URINALYSIS NONAUTO W/O SCOPE 06810 Bilirubin DateTime( Free Text in Aprima) URINALYSIS NONAUTO W/O SCOPE 11292 Ketones DateTime( Free Text in Aprima) URINALYSIS NONAUTO W/O SCOPE 23418 Urobilinogen DateTime (Free Text in Aprima) URINALYSIS NONAUTO W/O SCOPE 78154 Nitrite DateTime( Free Text in Apr) URINALYSIS NONAUTO W/O SCOPE 88264 Leukocytes trace DateTime(Free Text in ) Review [...] wide-based 10/16/2013 None Full Exam - General 1995 Psychiatric orientation/consciousness Oriented to person: yes 10/16/2013 None Full Exam - General 1995 Psychiatric orientation/consciousness Oriented to place: no 10/16/2013 None Full Exam - General 1994 Psychiatric orientation/consciousness Oriented to time: no 10/16/2013 None Full Exam - General 1995 Psychiatric orientation/consciousness Level of consciousness: alert 10/16/2013 None Full Exam - General 1995 [...] affect 06/12/2013 None Full Exam - General 1995 Constitutional general appearance Overall: well developed 02/13/2013 None Full Exam - General 1995 Constitutional general appearance Overall: in no acute distress 02/13/2013 None Full Exam - General 1995 Constitutional general appearance Overall: well nourished 02/13/2013 [...] 02/13/2013 None Full Exam - General 1995 Neurologic deep tendon reflexes Overall: deep tendon reflexes intact 02/13/2013 None Full Exam - General 1995 Neurologic gait Conventional walking: wide-based 02/13/2013 None Full Exam - General 1995 Psychiatric orientation/consciousness Oriented to person: yes 02/13/2013 None Full Exam - General 1995 Psychiatric orientation/consciousness Oriented to place: no 02/13/2013 None Full Exam - General 1995 Psychiatric orientation/consciousness Oriented to time: no 02/13/2013 [...] FLU VACC PRSV FREE INC ANTIG CPT-4: 42134 06/22/2016 ADMIN PNEUMOCOCCAL VACCINE SNOMED CT: 55752121 CPT-4: G0009 09/16/2015 PNEUMOCOCCAL VACC 13 QUYEN IM Formatting Model/CDA Sections, Assigned to SNOMED CT: 76123081 CPT-4: 86382Gcrckfj 09/16/2015 ADMIN INFLUENZA VIRUS VAC Formatting Model/CDA Sections, Assigned to/Renan Sharmaa CPT-4: I6622Gpwhpfe 07/01/2015 FLU VACC 4 QUYEN 3 YRS PLUS IM SNOMED CT: 97879208 CPT-4: 24351 07/01/2015 FLU VAC NO PRSV 4 QUYEN 3 YRS+ CPT-4: 48216 06/11/2014 ADMIN INFLUENZA VIRUS VAC Assigned to/Renan Sharmaa CPT-4: [id number] 06/11/2014 URINALYSIS NONAUTO W/O SCOPE CPT-4: 93876 07/31/2013 ADMIN INFLUENZA VIRUS VAC CPT-4: G0008 07/07/2013 FLULAVAL VACC, 3 YRS & >, IM CPT-4: Q2036 07/07/2013 ROUTINE VENIPUNCTURE CPT-4: 14852 07/07/2013 27807 EST. PATIENT, LEVEL IV CPT-4: 82047 06/12/2013 55764 EST. PATIENT, LEVEL IV CPT-4: 23227 02/13/2013 ROUTINE VENIPUNCTURE CPT-4: 44802 01/06/2013 URINALYSIS NONAUTO W/O SCOPE CPT-4: 09395 01/06/2013 15605 EST. PATIENT, LEVEL IV CPT-4: 99837 09/19/2012 URINALYSIS NONAUTO W/O SCOPE CPT-4: 75923 09/19/2012 IMMUNIZATION ADMIN CPT -4: 72221 07/25/2012 Influenza Virus Vaccine, Split Virus, >3 Yrs, IM CPT-4: 15170 07/25/2012 URINALYSIS NONAUTO W/O SCOPE CPT-4: 87819 05/23/2012 URINALYSIS NONAUTO W/O SCOPE CPT-4: 55711 04/05/2012 Vital Signs Date Vital 08/16/2017 Blood Pressure 1: 130/68 Code : 8480-6 BMI: 28.9 Code : 76982-3 Heart Rate 1 : 63 bpm Height: 5'2" SpO2: 96% Weight: 158 lbs 05/17/2017 Blood Pressure 1: 138/80 Code : 8480-6 Heart Rate 1: 88 bpm Height: SpO2: 96% Weight: 04/25/2017 Blood Pressure 1: 140/74 Code : 8480-6 BMI: 29.8 Code : 46514-0 Heart Rate 1 : 106 bpm Height: 5'2" SpO2: 96% Weight: 163 lbs 03/22/2017 Blood Pressure 1: 128/82 Code : 8480-6 BMI: 30.4 Code : 07860-4 Heart Rate 1 : 76 bpm Height: 5'2" SpO2: 95% Weight: 166 lbs 12/21/2016 Blood Pressure 1: 144/80 Code : 8480-6 BMI: 30.9 Code : 95708-1 Heart Rate 1 : 72 bpm Height: 5'2" SpO2: 98% Weight: 169 lbs 09/21/2016 Blood Pressure 1: 140/76 Code : 8480-6 BMI: 30.5 Code : 93109-8 Heart Rate 1 : 78 bpm Height: 5'2" SpO2: 97% Weight: 167 lbs 06/22/2016 Blood Pressure 1: 132/74 Code : 8480-6 BMI: 30.9 Code : 68137-8 Heart Rate 1 : 71 bpm Height: 5'2" SpO2: 98% Weight: 169 lbs 03/23/2016 Blood Pressure 1: 122/68 Code : 8480-6 BMI: 29.8 Code : 86980-5 Heart Rate 1 : 68 bpm Height: 5'2" SpO2: 98% Weight: 163 lbs 12/16/2015 Blood Pressure 1: 142/70 Code : 8480-6 BMI: 30.5 Code : 86729-3 Heart Rate 1 : 68 bpm Height: 5'2" SpO2: 98% Weight: 167 lbs 09/16/2015 Blood Pressure 1: 124/58 Code : 8480-6 BMI: 30.0 Code : 69143-7 Heart Rate 1 : 59 bpm Height: 5'2" SpO2: 96% Weight: 164 lbs 07/01/2015 Blood Pressure 1: 128/74 Code : 8480-6 BMI: 29.8 Code : 24664-9 Heart Rate 1 : 62 bpm Height: 5'2" SpO2: 98% Weight: 163 lbs 02/25/2015 Blood Pressure 1: 142/92 Code : 8480-6 Blood Pressure 2: 138/90 Code: 8480-6 BMI: 29.1 Code: 18819-4 Heart Rate 1: 78 bpm Height: 5'2" SpO2: 98% Weight: 159 lbs 11/19/2014 Blood Pressure 1: 130/80 Code : 8480-6 BMI: 28.3 Code : 77820-1 Heart Rate 1 : 68 bpm Height: 5'2" Weight: 155 lbs 08/13/2014 Blood Pressure 1: 122/62 Code : 8480-6 BMI: 27.4 Code : 57366-6 Heart Rate 1 : 72 bpm Height: 5'2" Weight: 150 lbs 06/11/2014 Blood Pressure 1: 112/56 Code : 8480-6 BMI: 27.0 Code : 76383-5 Heart Rate 1 : 67 bpm Height: 5'2" SpO2: 98% Weight: 147 lbs 8 oz 04/16/2014 Blood Pressure 1: 120/62 Code : 8480-6 BMI: 26.7 Code : 31707-7 Heart Rate 1 : 68 bpm Height: 5'2" Weight: 146 lbs 03/12/2014 Blood Pressure 1: 132/82 Code : 8480-6 BMI: 27.1 Code : 89071-0 Heart Rate 1 : 64 bpm Height: 5'2" Weight: 148 lbs 02/26/2014 Blood Pressure 1: 104/50 Code : 8480-6 BMI: 25.8 Code : 83007-1 Heart Rate 1 : 64 bpm Height: 5'2" Weight: 141 lbs 11/27/2013 Blood Pressure 1: 122/68 Code : 8480-6 Heart Rate 1: 60 bpm Weight: 153 lbs 10/16/2013 Blood Pressure 1: 136/72 Code : 8480-6 BMI: 27.4 Code : 40121-6 Heart Rate 1 : 80 bpm Height: 5'2" Weight: 150 lbs 07/10/2013 Blood Pressure 1: 126/76 Code : 8480-6 BMI: 27.3 Code : 79446-3 Heart Rate 1 : 80 bpm Height: 5'2" Weight: 149 lbs 06/12/2013 Blood Pressure 1: 168/80 Code : 8480-6 BMI: 27.3 Code : 19412-8 Heart Rate 1 : 76 bpm Height: 5'2" Weight: 149 lbs 8 oz 02/13/2013 Blood Pressure 1: 108/72 Code : 8480-6 BMI: 27.4 Code : 37394-8 Heart Rate 1 : 80 bpm Height: 5'2" Weight: 150 lbs 01/06/2013 Blood Pressure 1: 126/62 Code : 8480-6 BMI: 27.6 Code : 03697-6 Heart Rate 1 : 76 bpm Height: [...] Code : 8480-6 BMI: 27.8 Code : 14760-1 Heart Rate 1 : 80 bpm Height: [...] Present Encounters Encounter Performer Location Codes Date ([id number]) 09754 EST. 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 PATIENT, LEVEL IV Diagnosis: Mixed hyperlipidemia[ICD10: E78.2] Diagnosis: Dementia with Lewy bodies[ICD10: G31.83] Diagnosis: Major depressive disorder, recurrent, mild[ICD10: F33.0] Allie Mcneill MD, [facility] CPT-4: 50357 12/21/2016 ([id number]) 59786 EST. PATIENT, LEVEL IV Diagnosis: Dementia with Lewy bodies[ICD10: G31.83] Diagnosis: Mixed hyperlipidemia[ICD10: E78.2] Diagnosis: Encounter for immunization[ICD10: Z23] Diagnosis: Major depressive disorder, recurrent, mild[ICD10: F33.0] Allie Mcneill MD, [facility] CPT-4: 66784 09/21/2016 ([id number]) 96975 EST. PATIENT, LEVEL III Diagnosis: Encounter for immunization[ICD10: Z23] Diagnosis: Dementia with Lewy bodies[ICD10: G31.83] Diagnosis: Major depressive disorder, recurrent, mild[ICD10: F33.0] Allie Mcneill MD, [facility] CPT-4: 92325 06/22/2016 ([id number]) 78540 EST. PATIENT, LEVEL III Diagnosis: Mixed hyperlipidemia[ICD10: E78.2] Diagnosis: Dementia with Lewy bodies[ICD10: G31.83] Allie Mcneill MD [facility] CPT-4: 28821 03/23/2016 ([id number]) 84427 EST. PATIENT, LEVEL IV Diagnosis: Dementia with Lewy bodies[ICD10: G31.83] Diagnosis: Other hallucinations[ICD10: R44.2] Diagnosis: Mixed hyperlipidemia[ICD10: E78.2] Allie Mcneill MD [facility] CPT-4: 43464 12/16/2015 ([id number]) 06417 EST. PATIENT, LEVEL IV Diagnosis: Dementia with Lewy bodies[ICD10: G31.83] Diagnosis: Other hallucinations[ICD10: R44.2] Diagnosis: Mixed hyperlipidemia[ICD10: E78.2] Diagnosis: Encounter for immunization[ICD10: Z23] Allie Mcneill MD [facility] CPT-4: 36298 09/16/2015 ([id number]) 64460 EST. PATIENT, LEVEL IV Diagnosis: HYPERLIPIDEMIA[ICD9: 272.4] Diagnosis: DEMEN NOS 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[ICD9: 294.20] Diagnosis: LEWY BODY DEMENTIA[ICD9: 331.82] Diagnosis: VACCIN FOR INFLUENZA[ICD9: V04.81] Allie Mcneill MD [facility] CPT-4: 05253 07/01/2015 ([id number]) 45678 EST. PATIENT, LEVEL IV Diagnosis: HYPERLIPIDEMIA[ICD9: 272.4] Diagnosis: Dementia[ICD9: 294.20] Diagnosis: LEWY BODY DEMENTIA[ICD9: 331.82] Allie Mcneill MD [facility] CPT-4: 15300 02/25/2015 ([id number]) 67747 EST. PATIENT, LEVEL IV Diagnosis: HYPERLIPIDEMIA[ICD9: 272.4] Diagnosis: Dementia[ICD9: 294.20] Diagnosis: LEWY BODY DEMENTIA[ICD9: 331.82] Allie Mcneill MD, [facility] CPT-4: 95083 11/19/2014 ([id number]) 35854 EST. PATIENT, LEVEL IV Diagnosis: HYPERLIPIDEMIA[ICD9: 272.4] Diagnosis: LEWY BODY DEMENTIA[ICD9: 331.82] Allie Mcneill MD [facility] CPT-4: 32910 08/13/2014 ([id number]) 06120 EST. PATIENT, LEVEL IV Diagnosis: LEWY BODY DEMENTIA[ICD9: 331.82] Diagnosis: Psychosis[ICD9: 298.9] Allie Mcneill MD, [facility] CPT-4: 68280 06/11/2014 ([id number]) 61768 EST. PATIENT, LEVEL III Diagnosis: Lewy body dementia with behavioral disturbance[ICD9: 331.82] Diagnosis: Ulcer of gingiva[ICD9: 523.8] Shari Mcneill MD, [facility] CPT-4: 66314 04/16/2014 ([id number]) 38373 EST. PATIENT, LEVEL IV Diagnosis: Shingles[ICD9: 053.9] Diagnosis: Oral aphthae[ICD9: 528.2] Diagnosis: Yeast infection of the skin[ICD9: 112.3] Allie Mcneill MD, [facility] CPT-4: 94879 03/12/2014 ([id number]) 27391 EST. PATIENT, LEVEL IV Diagnosis: DEMEN NOS 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[ICD9: 294.20] Diagnosis: LEWY BODY DEMENTIA[ICD9: 331.82] Diagnosis: Impacted cerumen of both ears[ICD9: 380.4] Diagnosis: Weight loss[ICD9: 783.21] Diagnosis: Shingles rash[ICD9: 053.9] Allie Mcneill MD, [facility] CPT- 4: 28933 02/26/2014 ([id number]) 33332 EST. PATIENT, LEVEL IV Diagnosis: SENILE DELUSION[ICD9: 290.20] Diagnosis: LEWY BODY DEMENTIA[ICD9: 331.82] Diagnosis: HALLUCINATIONS[ICD9: 780.1] Diagnosis: PSYCHOSIS[ICD9: 298.9] Allie Mcneill MD, [facility] CPT-4: 30504 11/27/2013 ([id number]) 38210 EST. PATIENT, LEVEL IV Diagnosis: LEWY BODY DEMENTIA[ICD9: 331.82] Diagnosis: HALLUCINATIONS[ICD9: 780.1] Diagnosis: PSYCHOSIS[ICD9: 298.9] Allie Mcneill MD, [facility] CPT-4: 33666 10/16/2013 ([id number]) 50096 EST. PATIENT, LEVEL III Diagnosis: LEWY BODY DEMENTIA[ICD9: 331.82] Diagnosis: HALLUCINATIONS[ICD9: 780.1] Allie Mcneill MD, [facility] CPT- 4: 17040 07/10/2013 [id number]) 35966 EST. PATIENT, LEVEL IV Diagnosis: LEWY BODY DEMENTIA[ICD9: 331.82] Diagnosis: HALLUCINATIONS[ICD9: 780.1] Diagnosis: Dehydration[ICD9: 276.51] Diagnosis: Dementia[ICD9: 294.20] Allie Mcneill MD, [facility] CPT-4: 07431 01/06/2013 16952 EST. PATIENT, LEVEL III Diagnosis: Candidiasis of breast[ICD9: 112.2] Diagnosis: Seborrheic keratosis[ICD9: 702.19] Diagnosis: Dry skin[ICD9: 782.9] Shari Mcneill MD, [facility] CPT-4: 59216 08/08/2012 ([id number]) 54621 EST. PATIENT, LEVEL IV Diagnosis: LEWY BODY DEMENTIA[ICD9: 331.82] Diagnosis: HALLUCINATIONS[ICD9: 780.1] Allie Mcneill MD, [facility] CPT- 4: 54716 05/23/2012 ([id number] 56689 EST. PATIENT, LEVEL IV Diagnosis: HALLUCINATIONS[ICD9: 780.1] Diagnosis: LEWY BODY DEMENTIA[ICD9: 331.82] Allie Mcneill MD, [facility] CPT-4: 44399 04/04/2012 ([id number]) 46926 EST. PATIENT, LEVEL IV Diagnosis: Lewy body dementia with behavioral disturbance[ICD9: 331.82] Diagnosis: Hallucinations[ICD9: 780.1] Diagnosis: INSOMNIA IN OTHER DIS[ICD9: 327.01] Allie Mcneill MD, [facility] CPT-4: 50895 03/21/2012 Plan of Care Planned Activity Notes [...] months 08/16/2017 [facility] [phone] [facility] ([facility] min) Moderate 08/16/2017 Patient Education: Patient [...] level, symptoms. 05/17/2017 Appointment: [facility] [phone] [facility] [place] (15 min) Moderate 05/17/2017 Patient Education: Patient [...] at home. 04/25/2017 Appointment: [facility] [phone] [facility] [place] [place] (15 min) Moderate 04/25/2017 Patient Education: Patient Medication Summary Completed 04/25/2017 Appointment: [facility] [phone] [facility] [place] (15 min) Moderate 04/19/2017 Visit Plan: Dementia [...] Trazodone taper. 03/22/2017 Appointment: Allie Mcneill WPtel: [phone] [facility] (15 min) Moderate 03/22/2017 Patient Education: Patient [...] current medications. 12/21/2016 Appointment: [facility] [phone] [facility] (15 min) Moderate 12/21/2016 Patient Education: Patient [...] current medications. 09/21/2016 Appointment: Allie Mcneill WPtel: [phone] [facility] (15 min) Moderate 09/21/2016 Patient Education: Patient [...] current medications. 06/22/2016 Appointment: Allie Mcneill WPtel: [phone] [facility] (15 min) Moderate 06/22/2016 Patient Education: Patient [...] psychosis. 03/23/2016 Appointment: [facility] [phone] [facility] (15 min) Moderate 03/23/2016 Patient Education: Patient [...] problem. 12/16/2015 Appointment: [facility] [phone] [facility] (15 min) Moderate 12/16/2015 Patient Education: Patient [...] medications 09/16/2015 Appointment: [facility] [phone] [facility] [place] [place] (15 min) Moderate 09/16/2015 Patient Education: Patient [...] underlying psychosis. 07/01/2015 Appointment: Allie Mcneill WPtel: [address] [place], [place] [phone] Follow up 07/01/2015 Patient Education: Patient Medication [...] 1 month then stop the Marinol as [place]ar[place] has had resolution of her weight loss. [...] casi 11/19/2014 Appointment: Allie Mcneill WPtel: [facility] Follow up 11/19/2014 Patient Education: Patient Medication Summary Completed 11/19/2014 Appointment: Allie Mcneill WPtel: [address] [place], [place] [phone] Follow up 11/12/2014 Appointment: Allie Mcneill WPtel: [address] [place], [place] [phone] Follow up 09/10/2014 Visit Plan: Hyperlipidemia - [...] for effectiveness. 08/13/2014 Appointment: Allie Mcneill WPtel: [address] [place], [place] [phone] Follow up 08/13/2014 Patient Education: Patient Medication [...] this time. 06/11/2014 Appointment: Allie Mcneill WPtel: [address] [place] [phone] [place] Follow up 06/11/2014 Patient Education: Patient [...] 10 days. 03/12/2014 Appointment: Allie Mcneill WPtel: [address] [place], [place] [phone] [place] Follow up 03/12/2014 Patient Education: Patient [...] considered contagious. 02/26/2014 Appointment: Allie Mcneill WPtel: [address] [place] [phone] [place] Follow up 02/26/2014 Patient Education: Patient Medication Summary Completed 02/26/2014 Appointment: Allie Mcneill WPtel: [facility] [place] [place] Follow up 02/04/2014 Appointment: Allie Mcneill WPtel: [address] [place] [phone] [place] Follow up 01/19/2014 Visit Plan: Dementia [...] HELP AUGMENT PATIENT' S COMFORT AT THE SKILLED NURSING. 11/27/2013 Appointment: Allie Mcneill WPtel: [address] [place] [phone] Follow up 11/27/2013 Patient Education: Patient Medication [...] not improve. 10/16/2013 Appointment: Allie Mcneill WPtel: [address] [place] [phone] [place] Follow up 10/16/2013 Patient Education: Patient Medication Summary Completed 10/16/2013 Appointment: Shari Parada WPtel: [address] [place] [phone] [place] Lab Draw 07/31/2013 Patient Education: Patient Medication Summary Completed 07/31/2013 Appointment: Allie Mcneill WPtel: [address] [place] [phone] [place] Lab Draw 07/30/2013 Visit Plan: Lewy body dementia - symptoms improved on higher dose of risperdol - continue to monitor symptoms - family to call if hallucinations worsen again. 07/10/2013 Appointment: Allie Mcneill WPtel: [address] [place] [phone] [place] Follow up 07/10/2013 Patient Education: Patient [...] effecitveness. 06/12/2013 Appointment: [facility] [phone] [facility] Follow [place] 06/12/2013 Patient Education: Patient Medication [...] medications. 02/13/2013 Appointment: Allie Mcneill WPtel: [phone] [facility] [place] Follow up 02/13/2013 Patient Education: Patient [...] check UA. 01/06/2013 Appointment: [facility] [phone] [facility] Follow [place] 01/06/2013 Patient Education: Patient Medication [...] check UA. 09/19/2012 Appointment: Allie Mcneill WPtel: [phone] [facility] Established Patient Preventative visit 09/19/2012 Patient Education: Patient Medication Summary Completed 09/19/2012 Visit Plan: Candidiasis of breasts-discussed natural and expected course of this diagnosis and to alert me if sympotms do not follow expected course, or if any worse. Keep areas clean and dry. RX sent to patient' s pharmacy and instructed on use. Seborrheic pjeqqzlpi-odmkaoc-qsqmdscoh eucerin cream as needed to back Dry vruy-kogc-jqmzvzuvq moisturizer such as eucerin to face-call if worsens 08/08/2012 Appointment: Shari Parada WPtel: [phone] [phone] [place] rash 08/08/2012 Patient Education: Patient Medication Summary Completed 08/08/2012 Appointment: Allie Mcneill WPtel: [phone] [facility] [place] Injection 07/25/2012 Patient Education: Patient Medication [...] her rest. 05/23/2012 Appointment: Allie Mcneill WPtel: [phone] [facility] Follow up 05/23/2012 Patient Education: Patient Medication Summary Completed 05/23/2012 Appointment: [phone] [place] Lab Draw 04/05/2012 Patient Education: Patient [...] dosing regimen. 04/04/2012 Appointment: [facility] [phone] [facility] Follow [place] 04/04/2012 Patient Education: Patient Medication Summary Completed 04/04/2012 Visit Plan: Lewy Body Dementia - pt has been having hallucinations, auditory, visual, gustatory, she was recently in the hospital, then was transfered to a geriatric psychiatric facility in [place] for inpatient psych treatment. She was discharged [...] opened. 03/21/2012 Appointment: [facility] [phone] [facility] [place] New Patient 03/21/2012 Patient Education: Patient Medication Summary Completed 03/21/2012 Instructions Comment . Psychosis - increase Risperdal to 0.5mg [...] 2017 and q 4 months . Lewy Body Dementia - pt with [...] change in the current dosing regimen. . Lewy Body Dementia - Pt with [...] transfered to a geriatric psychiatric facility in [place] for inpatient psych treatment. She was discharged [...] patient's pharmacy and instructed on use. Seborrheic cewzibhtn-kkfnfsm-pyoxgznax eucerin cream as needed to back Dry kamp-bqtg-gintvyfpw moisturizer such as eucerin to face-call if [...] closely monitor the medications for effectiveness. . Dementia with Behaviors - I have [...] TO HELP AUGMENT PATIENT'S COMFORT AT THE SKILLED NURSING. . Hyperlipidemia - pt has been counseled [...] office if symptoms do not improve. . Hyperlipidemia - pt has been counseled [...] assure normal liver response to medications. . Hypertension - well controlled - continue [...]
--- OUTSIDE RECORDS SUMMARY | 2018-01-02 19:58 | XMS REPORT | CCD ---
Author Author Allie Mcneill Organization Allie Mcneill MD, [facility] Address [address] [place] [address] Phone Care Team Providers Care Accounts Receivable Accountant Name Role Phone PP Unavailable CCM Unavailable Summary Purpose Interface Exchange Insurance Providers Payer name Policy type / Coverage type Covered republican ID Effective Begin Date Effective End Date HUMANA CLAIMS Commercial Insurance [id number] Unknown Family history Daughter Diagnosis Age At [...] Codes Description Effective Dates Living arrangements Unknown Retirement [facility] 12/21/2016 Marital status Unknown 03/21/2012 Number of children Unknown 5 03/21/[address]: 267105485 Nonsmoker 03/21/[address]: 009132206 Never drinks alcohol 03/21/2012 Allergies, Adverse Reactions, [...] Fill Instructions Ativan 0.5 mg tablet RxNorm: 729057 1 Tablet(s) PO Q6 as needed and 1/2 Tablet PO Q2 as needed 11/22/2017 No Stop Date Active Exelon Patch 9.5 mg/24 hr transdermal RxNorm: 034322 APPLY ONE (1) PATCH ONCE DAILY. 11/12/2017 No Stop Date Active losartan 50 mg tablet RxNorm: 218159 TAKE 1 TABLET BY MOUTH EVERY DAY 11/05/2017 06/02/2018 Active Generic For:*COZAAR 50MG 11/02/2017 2:22:04 PM Exelon Patch 9.5 mg/24 hr transdermal RxNorm: 130384 APPLY ONE (1) PATCH ONCE DAILY. 10/19/2017 11/11/2017 Inactive Depakote 500 mg tablet,delayed release RxNorm: 2406627 1 Tablet(s) PO daily 10/15/2017 10/09/2018 Active Protonix 20 mg tablet,delayed release RxNorm: 762880 TAKE 1 TABLET BY MOUTH DAILY 08/06/2017 03/03/2018 Active Generic For:*PROTONIX 20MG 08/06/2017 2:35:53 PM Ativan 0.5 mg tablet RxNorm: 558561 1/2 Tablet(s) PO Q6 PRN as needed 1/2 po q 2 pm 08/02/2017 09/30/2017 Inactive Depakote 500 mg tablet,delayed release RxNorm: 6382182 1 Tablet(s) PO daily 06/22/2017 10/14/2017 Inactive Exelon Patch 9.5 mg/24 hr transdermal RxNorm: 434012 APPLY ONE (1) PATCH ONCE DAILY. 05/14/2017 10/10/2017 Inactive Protonix 20 mg tablet,delayed release RxNorm: 965364 1 Tablet(s) PO daily 05/08/2017 08/05/2017 Inactive Risperdal 0.25 mg tablet RxNorm: 179554 Tablet(s) UD .25 in am and .5 in hs and .25 prn for psychosis/hallucinations 04/26/2017 05/16/2017 Inactive Nuedexta 20 mg-10 mg capsule RxNorm: 3763328 1 Capsule(s) PO daily x 7 days then go to one cap BID 03/22/2017 04/24/2017 Inactive Ativan 0.5 mg tablet RxNorm: 922369 1/2 Tablet(s) PO Q6 PRN as needed 1/2 po q 2 pm 03/21/2017 08/01/2017 Inactive Keflex 500 mg capsule RxNorm: 285673 1 Capsule(s) PO TID 201603/05/2017 Inactive Keflex 500 mg capsule RxNorm: 561454 1 Capsule(s) PO TID 201603/15/2017 Inactive Ativan 0.5 mg tablet RxNorm: 386792 1/2 Tablet(s) PO Q6 PRN as needed 1/2 po q 2 pm 02/28/2017 03/20/2017 Inactive Protonix 20 mg tablet,delayed release RxNorm: 164660 1 Tablet(s) PO daily 02/07/2017 05/07/2017 Inactive Protonix 20 mg tablet,delayed release RxNorm: 311626 1 Tablet(s) PO daily 02/07/2017 02/06/2017 Inactive amoxicillin 500 mg capsule RxNorm: 019149 1 Capsule(s) PO TID 01/11/2017 01/10/2017 Inactive Patient at [facility] amoxicillin 500 mg capsule RxNorm: 087248 1 Capsule(s) PO TID 01/11/2017 01/17/2017 Inactive Patient at [facility] Exelon Patch 9.5 mg/24 hr transdermal RxNorm: 877696 APPLY ONE (1) PATCH ONCE DAILY. 12/14/2016 05/12/2017 Inactive Flonase 50 mcg/actuation nasal spray,suspension RxNorm: 4931203 1 [place] each nostril NASAL BID 10/30/2016 11/28/2016 Inactive 2 spray each nostril Namenda 10 mg tablet RxNorm: 996963 1 Tablet(s) PO BID 201609/04/2017 Inactive Risperdal 0.25 mg tablet RxNorm: 506787 1 Tablet(s) PO QHS 01/22/2017 Inactive trazodone 50 mg tablet RxNorm: 523888 1.5 Tablet(s) PO QHS 03/29/2017 Inactive Exelon Patch 9.5 mg/24 hr transdermal RxNorm: 048082 APPLY ONE (1) PATCH ONCE DAILY. 07/18/2016 12/13/2016 Inactive trazodone 50 mg tablet RxNorm: 439010 1.5 Tablet(s) PO QHS 09/24/2016 Inactive Exelon Patch 9.5 mg/24 hr transdermal RxNorm: 928437 APPLY ONE (1) PATCH ONCE DAILY. 05/15/2016 05/14/2016 Inactive Exelon Patch 9.5 mg/24 hr transdermal RxNorm: 218018 APPLY ONE (1) PATCH ONCE DAILY. 05/15/2016 10/18/2017 Inactive Risperdal 0.25 mg tablet RxNorm: 469843 1 Tablet(s) PO QHS 11/201509/24/2016 Inactive Exelon Patch 9.5 mg/24 hr transdermal RxNorm: 860488 APPLY ONE (1) PATCH ONCE DAILY. 2016 No Stop Date Active Exelon Patch 9.5 mg/24 hr transdermal RxNorm: 925204 APPLY ONE (1) PATCH ONCE DAILY. 2016 02/21/2016 Inactive trazodone 50 mg tablet RxNorm: 669283 1.5 Tablet(s) PO QHS 01/201605/28/2016 Inactive clopidogrel 75 mg tablet RxNorm: 813974 1 Tablet(s) PO daily 01/31/2017 Inactive Celexa 20 mg tablet RxNorm: 280992 1 Tablet(s) PO daily 201501/31/2017 Inactive simvastatin 20 mg tablet RxNorm: 158744 1 Tablet(s) PO daily 11/21/2017 Inactive Poteet Instant Breakfast Juice Drink oral liquid RxNorm: PO QHS after meals 02/02/2016 12/20/2016 Inactive Flonase 50 mcg/actuation nasal spray,suspension RxNorm: 7161680 1 [place] each nostril NASAL BID 12/02/2015 03/30/2016 Inactive 2 spray each nostril Namenda 10 mg tablet RxNorm: 358476 1 Tablet(s) PO BID 201510/06/2016 Inactive Risperdal 0.25 mg tablet RxNorm: 552398 1 Tablet(s) PO QHS 02/29/2016 Inactive Exelon Patch 9.5 mg/24 hr transdermal RxNorm: 226483 1 Patch TD daily 1 Patch TD daily 07/23/2015 01/18/2016 Inactive Exelon Patch 9.5 mg/24 hr transdermal RxNorm: 534950 1 Patch TD daily 07/20/2015 07/22/2015 Inactive Celexa 20 mg tablet RxNorm: 664036 1 Tablet(s) PO daily 201402/06/2016 Inactive Flonase 50 mcg/actuation nasal spray,suspension RxNorm: 742600 1 [place] each nostril NASAL BID 06/04/2015 10/01/2015 Inactive 2 spray each nostril Risperdal 0.25 mg tablet RxNorm: 619515 1 Tablet(s) PO QHS 08/01/2015 Inactive Exelon Patch 9.5 mg/24 hr transdermal RxNorm: 589417 1 Patch TD daily 04/28/2015 07/19/2015 Inactive Vitamin D3 2,000 unit capsule RxNorm: 260148 1 Capsule(s) PO daily 02/10/2015 03/15/2016 Inactive Calcium 600 + D(3) 600 mg (1,500 mg)-400 unit tablet RxNorm: 314320 1 Tablet(s) PO daily 02/09/2015 No Stop Date Active Celexa 20 mg tablet RxNorm: 029593 1 Tablet(s) PO daily 201412/09/2014 Inactive Celexa 20 mg tablet RxNorm: 950672 1 Tablet(s) PO daily 201407/07/2015 Inactive Flonase 50 mcg/actuation nasal spray,suspension RxNorm: 965256 1 [place] each nostril NASAL BID 11/27/2014 03/26/2015 Inactive 2 spray each nostril Casi Allergy 180 mg tablet RxNorm: 045973 1 Tablet(s) PO daily 11/19/2014 12/18/2014 Inactive Marinol 2.5 mg capsule RxNorm: 085363 1 Capsule(s) PO TID 11/1603/15/2015 Inactive [SAVINGS FOR UNINSURED PATIENTS -- BIN:[id number], PCN: [id number], Group: [facility], ID# [id number], Process claim through [employer], for questions: . THIS IS NOT INSURANCE.] Namenda 10 mg tablet RxNorm: 016767 1 Tablet(s) PO BID 201402/08/2015 Inactive Marinol 2.5 mg capsule RxNorm: 032015 1 Capsule(s) PO TID 10/1211/10/2014 Inactive Namenda 10 mg tablet RxNorm: 946768 1 Tablet(s) PO BID 201410/11/2014 Inactive Flonase 50 mcg/actuation nasal spray,suspension RxNorm: 715157 2 [place] NASAL BID 08/17/2014 11/26/2014 Inactive 2 spray each nostril Exelon Patch 9.5 mg/24 hr transdermal RxNorm: 327555 1 Patch TD daily 07/10/2014 10/07/2014 Inactive Risperdal 0.25 mg tablet RxNorm: 658889 1 Tablet(s) PO QHS 05/201405/03/2015 Inactive Namenda XR 14 mg capsule sprinkle,ER 24hr RxNorm: 462216 1 Capsule(s) PO daily 04/13/2014 10/11/2014 Inactive acyclovir 800 mg tablet RxNorm: 161877 1 Tablet(s) PO TID 03/1203/18/2014 Inactive nystatin 100,000 unit/gram topical powder RxNorm: 104259 1 Gram(s) TOP QID apply to tissue under breasts and if needed other folded skin ears with evidence of yeast infection 03/12/2014 03/21/2014 Inactive simvastatin 20 mg tablet RxNorm: 898394 1 Tablet(s) PO daily 02/15/2014 Inactive trazodone 50 mg tablet RxNorm: 062406 1 1/2 Tablet(s) PO daily 02/16/2014 02/15/2014 Inactive trazodone 50 mg tablet RxNorm: 329782 1 1/2 Tablet(s) PO daily 02/16/2014 03/17/2014 Inactive clopidogrel 75 mg tablet RxNorm: 970840 1 Tablet(s) PO daily 02/10/2015 Inactive Exelon 4.6 mg/24 hour transdermal 24 hour patch RxNorm: 243402 1 TD daily 02/16/2014 03/17/2014 Inactive simvastatin 20 mg tablet RxNorm: 710335 1 Tablet(s) PO daily 06/15/2014 Inactive Vitamin B-12 2,500 mcg sublingual tablet RxNorm: 432350 1 Tablet(s) SL daily 01/22/2014 No Stop Date Active Ativan 0.5 mg tablet RxNorm: 761269 1/2 Tablet(s) PO Q6 PRN 1/2 po q 2 pm and 1 po q 6 hours prn anxiety 10/16/20132013 Inactive Cipro 500 mg tablet RxNorm: 398162 1 Tablet(s) PO BID correction 08/04/2013 08/08/2013 Inactive Cipro 500 mg tablet RxNorm: 962550 2 Tablet(s) PO BID 201208/03/2013 Inactive Cipro 500 mg tablet RxNorm: 784290 2 Tablet(s) PO BID 201207/31/2013 Inactive Influenza Virus Vaccine 0.5 mL RxNorm: IM 07/07/2013 07/07/2013 Inactive clopidogrel 75 mg tablet RxNorm: 451756 1 Tablet(s) PO daily 02/15/2014 Inactive risperidone 0.5 mg tablet RxNorm: 299635 1 Tablet(s) PO TID 01/21/2014 Inactive atorvastatin 20 mg tablet RxNorm: 649391 1 Tablet(s) PO QPM 01/21/2014 Inactive TAKE ONE TABLET BY MOUTH EVERY DAY risperidone 0.5 mg tablet RxNorm: 508339 1 Tablet(s) PO TID 02/201306/24/2013 Inactive Risperdal 0.25 mg tablet RxNorm: 214155 Tablet(s) PO TAKE 1 TABLET AT NOON AND TAKE 1 TABLET AT NIGHT IF NEEDED FOR HALLUCINATIONS 201206/11/2013 Inactive clopidogrel 75 mg tablet RxNorm: 500493 1 Tablet(s) PO daily 06/24/2013 Inactive Risperdal 0.25 mg tablet RxNorm: 690412 1 Tablet(s) PO noon one at noon and one in night if needed for hallucinations. 09/06/2012 01/01/2013 Inactive atorvastatin 20 mg tablet RxNorm: 198423 1 Tablet(s) PO QPM 06/24/2013 Inactive TAKE ONE TABLET BY MOUTH EVERY DAY risperidone 0.5 mg tablet RxNorm: 574525 1 Tablet(s) PO BID 06/11/2013 Inactive atorvastatin 20 mg tablet RxNorm: 860199 Tablet(s) PO 201109/05/2012 Inactive TAKE ONE TABLET BY MOUTH EVERY DAY nystatin 100,000 unit/g Topical Powder RxNorm: 855841 1 Gram(s) TOP BID 08/08/2012 08/27/2012 Inactive atorvastatin 20 mg tablet RxNorm: 186407 Tablet(s) PO 201108/11/2012 Inactive TAKE ONE TABLET BY MOUTH EVERY DAY risperidone 0.5 mg tablet RxNorm: 973142 1 Tablet(s) PO BID 03/201207/12/2012 Inactive Risperdal 0.25 mg tablet RxNorm: 553064 1 Tablet(s) PO noon one at noon and one in night if needed for hallucinations. 06/13/2012 09/05/2012 Inactive clopidogrel 75 mg tablet RxNorm: 277399 1 Tablet(s) PO daily 09/05/2012 Inactive atorvastatin 20 mg tablet RxNorm: 375076 1 Tablet(s) PO daily 05/10/2012 06/08/2012 Inactive Cipro 500 mg Tab RxNorm: 105380 1 Tablet(s) PO BID 201104/11/2012 Inactive Risperdal 0.25 mg tablet RxNorm: 189059 1 Tablet(s) PO noon one at noon and one in night if needed for hallucinations. 03/22/2012 06/12/2012 Inactive Risperdal 0.25 mg Tab RxNorm: 147802 1 Tablet(s) PO noon one at noon and one in night if needed for hallucinations. 03/21/2012 03/21/2012 Inactive Vitamin D3 2,000 unit tablet RxNorm: 068748 1 Tablet(s) PO daily No Start Date Active Protonix 20 mg tablet,delayed release RxNorm: 469934 1 Tablet(s) PO daily No Start Date Active Vitamin B-12 500 mcg tablet RxNorm: 498421 1 Tablet(s) PO daily No Start Date Active melatonin 3 mg tablet RxNorm: 013415 2 Tablet(s) PO QHS No Start Date Active Tylenol 500 mg RxNorm : 1 -2 Tablet(s) PO Q6 as needed pain or fever No Start Date Active Vitamin D3 2,000 unit capsule RxNorm: 405271 1 Capsule(s) PO daily No Start Date 02/09/2015 Inactive trazodone 50 mg tablet RxNorm: 002271 1.5 Tablet(s) PO QHS No Start Date 02/08/2016 Inactive Trazadone 25 mg RxNorm : 3 PO QHS No Start Date 02/15/2014 Inactive Poteet Instant Breakfast Juice Drink oral liquid RxNorm: PO TID after meals No Start Date 02/01/2016 Inactive Vitamin B-12 2,500 mcg sublingual tablet RxNorm: 823366 1 Tablet(s) SL daily No Start Date 01/21/2014 Inactive Tums Calcium for Life Bone 300 mg (750 mg) chewable tablet RxNorm: 395996 2 Tablet (s) PO daily No Start Date 02/12/2013 Inactive calcium 300 mg chewable tablet RxNorm: 1 Tablet(s) PO daily No Start Date 12/03/2015 Inactive with vitamin d Marinol 2.5 mg capsule RxNorm: 902012 1 Capsule(s) PO ac tid No Start Date 03/11/2014 Inactive Namenda XR 14 mg capsule sprinkle,ER 24hr RxNorm: 911642 1 Capsule(s) PO daily No Start Date 04/12/2014 Inactive clopidogrel 75 mg tablet RxNorm: 498721 1 Tablet(s) PO daily No Start Date 05/09/2012 Inactive Namenda 5 mg Tab RxNorm: 419872 1 Tablet(s) PO BID No Start Date 04/12/2014 Inactive Depakote 500 mg tablet,delayed release RxNorm: 4251613 1 Tablet(s) PO daily No Start Date 06/21/2017 Inactive Zocor 20 mg tablet RxNorm: 822923 1 Tablet(s) PO daily No Start Date 08/12/2014 Inactive losartan 50 mg tablet RxNorm: 946583 1 Tablet(s) PO daily No Start Date 11/04/2017 Inactive Depakote ER 250 mg tablet,extended release RxNorm: 5286148 1 Tablet(s) PO BID No Start Date 12/31/2013 Inactive Calcium 600 + D(3) oral RxNorm: 849250 oral No Start Date 02/08/2015 Inactive risperidone 0.5 mg tablet RxNorm: 253311 1 Tablet(s) PO BID No Start Date 06/12/2012 Inactive lorazepam 0.5 mg tablet RxNorm: 687018 1 Tablet(s) PO daily No Start Date 11/21/2017 Inactive atorvastatin 20 mg tablet RxNorm: 264211 1 Tablet(s) PO daily No Start Date 05/09/2012 Inactive Flonase 50 mcg/actuation nasal spray,suspension RxNorm: 436425 2 [place] NASAL BID No Start Date 08/16/2014 Inactive 2 spray each nostril Exelon 4.6 mg/24 hour transdermal 24 hour patch RxNorm: 518528 1 TD daily No Start Date 02/15/2014 [...] depression 06/11/2014 skin lesion 04/16/2014 reported by [facility] skin lesion 03/12/2014 weight loss 02/26/2014 medication follow up 11/27/2013 anxiety 10/16/2013 memory loss 07/10/2013 --Improved vaccination against influenza 07/07/2013 memory loss 06/12/2013 hallucination 02/13/2013 hallucination 01/06/2013 rash 09/19/2012 skin lesion 08/08/2012 vaccination against influenza 07/25/2012 memory loss 05/23/2012 hallucination 04/04/2012 dementia memory loss 03/21/2012 Results Observation Observation Code Item Item Code Result Date Valproic Acid Eiz566 VALPROIC 38.0 ug/ml 11/22/2017 Valproic Acid Cqg907 VALPROIC 44.0 ug/ml 10/22/2017 Hepatic Abb617 ALBUMIN 3.3 g/dL 10/22/2017 Hepatic Kwg495 TPRO 5.7 g/dL 10/22/2017 Hepatic Buj679 GLOB 2.4 g/dL 10/22/2017 Hepatic Dov789 A/G Ratio 1.4 Ratio 10/22/2017 Hepatic Rpy684 ALK PHOS 72 U/L 10/22/2017 Hepatic Gra475 ALT(SGPT) 5 U/L 10/22/2017 Hepatic Iye386 AST(SGOT) 9 U/L 10/22/2017 Hepatic Ypf781 BILI T 0.3 mg/dL 10/22/2017 Hepatic Oei892 BILI D 0.0 mg/dL 10/22/2017 Hepatic Inf395 BILI I 0.3 mg/dL 10/22/2017 Hepatic Onz090 ALBUMIN 3.8 g/dL 09/20/2017 Hepatic Qwn992 TPRO 6.3 g/dL 09/20/2017 Hepatic Wtn652 GLOB 2.5 g/dL 09/20/2017 Hepatic Uru601 A/G Ratio 1.5 Ratio 09/20/2017 Hepatic Suu556 ALK PHOS 67 U/L 09/20/2017 Hepatic Jck239 ALT(SGPT) 5 U/L 09/20/2017 Hepatic Jhz053 AST(SGOT) 11 U/L 09/20/2017 Hepatic Gsr011 BILI T 0.4 mg/dL 09/20/2017 Hepatic Urx281 BILI D 0.1 mg/dL 09/20/2017 Hepatic Iwy504 BILI I 0.3 mg/dL 09/20/2017 Valproic Acid Kha404 VALPROIC 10.0 ug/ml 09/20/2017 Valproic Acid Rud990 VALPROIC 44.0 ug/ml 08/23/2017 Hepatic Ehh117 ALBUMIN 3.5 g/dL 08/23/2017 Hepatic Mkc048 TPRO 6.1 g/dL 08/23/2017 Hepatic Psx449 GLOB 2.6 g/dL 08/23/2017 Hepatic Vdz438 A/G Ratio 1.4 Ratio 08/23/2017 Hepatic Rtj288 ALK PHOS 63 U/L 08/23/2017 Hepatic Vks263 ALT(SGPT) 5 U/L 08/23/2017 Hepatic Kki136 AST(SGOT) 9 U/L 08/23/2017 Hepatic Ojw984 BILI T 0.3 mg/dL 08/23/2017 Hepatic Fjm377 BILI D 0.1 mg/dL 08/23/2017 Hepatic Azs032 BILI I 0.2 mg/dL 08/23/2017 Hepatic Yee247 ALBUMIN 3.5 g/dL 07/23/2017 Hepatic Dyl910 TPRO 5.9 g/dL 07/23/2017 Hepatic Zvv147 GLOB 2.4 g/dL 07/23/2017 Hepatic Kke412 A/G Ratio 1.5 Ratio 07/23/2017 Hepatic Ibe663 ALK PHOS 61 U/L 07/23/2017 Hepatic Rcy889 ALT(SGPT) 6 U/L 07/23/2017 Hepatic Avr425 AST(SGOT) 11 U/L 07/23/2017 Hepatic Url192 BILI T 0.3 mg/dL 07/23/2017 Hepatic Lna369 BILI D 0.1 mg/dL 07/23/2017 Hepatic Lhi320 BILI I 0.2 mg/dL 07/23/2017 Valproic Acid Tth194 VALPROIC 37.0 ug/ml 07/23/2017 Hepatic Wuj988 ALBUMIN 3.6 g/dL 06/26/2017 Hepatic Ukt023 TPRO 6.0 g/dL 06/26/2017 Hepatic Ukd012 GLOB 2.4 g/dL 06/26/2017 Hepatic Fli646 A/G Ratio 1.5 Ratio 06/26/2017 Hepatic Jyo703 ALK PHOS 64 U/L 06/26/2017 Hepatic Krm991 ALT(SGPT) 8 U/L 06/26/2017 Hepatic Jtn412 AST(SGOT) 11 U/L 06/26/2017 Hepatic Oxs535 BILI T 0.3 mg/dL 06/26/2017 Hepatic Jqv627 BILI D 0.1 mg/dL 06/26/2017 Hepatic Bkj362 BILI I 0.2 mg/dL 06/26/2017 Valproic Acid Pbu634 VALPROIC 45.0 ug/ml 06/26/2017 Comp Metabolic Zeu825 NA 140 mEq/L 05/18/2017 Comp Metabolic Csc497 K 4.2 mEq/L 05/18/2017 Comp Metabolic Vyl879 CL 103 mEq/L 05/18/2017 Comp Metabolic Gsz774 CO2 27.0 mEq/L 05/18/2017 Comp Metabolic Tye389 ANION GAP 14 05/18/2017 Comp Metabolic Kfz216 GLUCOSE 85 mg/dL 05/18/2017 Comp Metabolic Qqw742 Creat 0.6 mg/dL 05/18/2017 Comp Metabolic Pch301 eGFR 109 ml/min/1.73m2 05/18/2017 Comp Metabolic Vmg682 BUN 8 mg/dL 05/18/2017 Comp Metabolic Cjn066 B/C Ratio 14.3 Ratio 05/18/2017 Comp Metabolic Kfa406 CALCIUM 8.6 mg/dL 05/18/2017 Comp Metabolic Qpj352 ALK PHOS 85 U/L 05/18/2017 Comp Metabolic Lvx389 AST(SGOT) 10 U/L 05/18/2017 Comp Metabolic Iru282 ALT(SGPT) 6 U/L 05/18/2017 Comp Metabolic Qpl174 BILI T 0.4 mg/dL 05/18/2017 Comp Metabolic Yyn058 ALBUMIN 3.7 g/dL 05/18/2017 Comp Metabolic Rrh304 TPRO 6.3 g/dL 05/18/2017 Comp Metabolic Ynd706 GLOB 2.6 g/dL 05/18/2017 Comp Metabolic Qll073 A/G Ratio 1.4 Ratio 05/18/2017 Comp Metabolic Lnx533 Osmo 277 mOsmo 05/18/2017 Bili D Ord93 BILI D 0.1 mg/dL 05/18/2017 Bili D Ord93 BILI I 0.3 mg/dL 05/18/2017 Valproic Acid Dqz166 VALPROIC 27.0 ug/ml 05/18/2017 Urinalysis Ord28 U-Color [...] 04/11/2017 Urinalysis Ord28 U-Yeast NEGATIVE 04/11/2017 A1C 9572365 A1C HPLC 28555-7 5.9 % 07/08/2013 LIPID GRP HDL TEST 47 MG/DL 07/07/2013 LIPID GRP TRIG 121 MG/DL 07/07/2013 LIPID GRP TEST LDL 63 MG/DL 07/07/2013 LIPID GRP CHOL 134 MG/DL 07/07/2013 LIPID GRP RCHOL/HDL 2.85 RATIO 07/07/2013 CBC 8495986 WBC 8.9 10e9/L 07/07/2013 CBC 2494125 RBC 4.27 10e12/L 07/07/2013 CBC 7198440 HGB 12.7 g/dL 07/07/2013 CBC 0430295 HCT DET 39.0 % 07/07/2013 CBC 7455038 MCV 91.3 fL 07/07/2013 CBC 7860620 MCH 29.7 pg 07/07/2013 CBC 9977336 MCHC 32.6 g/dL 07/07/2013 CBC 4656957 PLT 273 10e9/L 07/07/2013 CBC 0906685 MPV 11.0 fL 07/07/2013 CBC 6974805 TORREY % 69.1 % 07/07/2013 CBC 9447506 LY % 19.6 % 07/07/2013 CBC 2169486 MON % 8.5 % 07/07/2013 CBC 4319490 EOS % 2.6 % 07/07/2013 CBC 7952812 BASO % 0.2 % 07/07/2013 CBC 8588084 RDW 13.0 % 07/07/2013 CBC 8809118 ABS TORREY 6.15 10e9/L 07/07/2013 CBC 9093834 ABS LYMPH 1.74 10e9/L 07/07/2013 CBC 7013335 ABS MONO 0.76 10e9/L 07/07/2013 CBC 0792885 ABS EOS 0.23 10e9/L 07/07/2013 CBC 2385538 ABS BASO 0.02 10e9/L 07/07/2013 CBC 4822195 RDW-SD 42.3 fL 07/07/2013 GFR CALC 3617754 GFR AA >60 ML/MIN 07/07/2013 GFR CALC 1495263 GFR NON-AA >60 ML/MIN 07/07/2013 CHEM 14 2794116 AST 14 U/L 07/07/2013 CHEM 14 6229796 ALT 10 IU/L 07/07/2013 CHEM 14 7992935 BUN 11 MG/DL 07/07/2013 CHEM 14 4333912 ALBUMIN 4.1 GM/DL 07/07/2013 CHEM 14 3166437 CHLORIDE 107 MMOL/L 07/07/2013 CHEM 14 9230020 BILI TOT 0.4 MG/DL 07/07/2013 CHEM 14 2378787 ALK PHOS 54 U/L 07/07/2013 CHEM 14 7346647 SODIUM 141 MMOL/L 07/07/2013 CHEM 14 5114781 CREATININE 0.70 MG/DL 07/07/2013 CHEM 14 9865291 CALCIUM 9.0 MG/DL 07/07/2013 CHEM 14 5369770 POTASSIUM 4.2 MMOL/L 07/07/2013 CHEM 14 5642008 PROT TOT 6.5 GM/DL 07/07/2013 CHEM 14 5032769 GLUCOSE 102 MG/DL 07/07/2013 CHEM 14 3087977 BICARB 28 MMOL/L 07/07/2013 CHEM 14 0695653 ANION GAP 6 MEQ/L 07/07/2013 CHEM 14 2564803 AST 14 U/L 01/06/2013 CHEM 14 8859068 ALT 12 IU/L 01/06/2013 CHEM 14 2048441 BUN 9 MG/DL 01/06/2013 CHEM 14 7299666 ALBUMIN 4.2 GM/DL 01/06/2013 CHEM 14 1600316 CHLORIDE 108 MMOL/L 01/06/2013 CHEM 14 4338917 BILI TOT 0.4 MG/DL 01/06/2013 CHEM 14 3171840 ALK PHOS 74 U/L 01/06/2013 CHEM 14 7351295 SODIUM 142 MMOL/L 01/06/2013 CHEM 14 7093923 CREATININE 0.62 MG/DL 01/06/2013 CHEM 14 8607172 CALCIUM 9.0 MG/DL 01/06/2013 CHEM 14 4396655 POTASSIUM 4.3 MMOL/L 01/06/2013 CHEM 14 0796167 PROT TOT 6.6 GM/DL 01/06/2013 CHEM 14 9822274 GLUCOSE 94 MG/DL 01/06/2013 CHEM 14 8221323 BICARB 25 MMOL/L 01/06/2013 CHEM 14 6725029 ANION GAP 9 MEQ/L 01/06/2013 CBC 4102879 WBC 7.2 10e9/L 01/06/2013 CBC 4552834 RBC 4.22 10e12/L 01/06/2013 CBC 1341942 HGB 12.6 g/dL 01/06/2013 CBC 0731700 HCT DET 38.3 % 01/06/2013 CBC 6960923 MCV 90.8 fL 01/06/2013 CBC 6840918 MCH 29.9 pg 01/06/2013 CBC 8654708 MCHC 32.9 g/dL 01/06/2013 CBC 0854029 PLT 287 10e9/L 01/06/2013 CBC 4424097 MPV 11.0 fL 01/06/2013 CBC 5248191 TORREY % 68.0 % 01/06/2013 CBC 2755228 LY % 21.6 % 01/06/2013 CBC 2140047 MON % 9.0 % 01/06/2013 CBC 4933921 EOS % 1.3 % 01/06/2013 CBC 7735209 BASO % 0.1 % 01/06/2013 CBC 6726256 RDW 13.3 % 01/06/2013 CBC 4439930 ABS TORREY 4.90 10e9/L 01/06/2013 CBC 2497096 ABS LYMPH 1.56 10e9/L 01/06/2013 CBC 3158846 ABS MONO 0.65 10e9/L 01/06/2013 CBC 1848122 ABS EOS 0.09 10e9/L 01/06/2013 CBC 6123992 ABS BASO 0.01 10e9/L 01/06/2013 CBC 8462510 RDW-SD 43.0 fL 01/06/2013 VIT B 12 2484305 VIT B 12 >2000 PG/ML 01/06/2013 TSH 1515127 TSH 1.814 uIU/ML 01/06/2013 GFR CALC 5436799 GFR AA >60 ML/MIN 01/06/2013 GFR CALC 7386605 GFR NON-AA >60 ML/MIN 01/06/2013 FREE T4 0452022 FREE T4 1.19 NG/DL 01/06/2013 URINALYSIS NONAUTO W/O SCOPE 78210 Specific Hannah 1.020 DateTime(Free Text in Aprima) URINALYSIS NONAUTO W/O SCOPE 20018 PH 6.0 DateTime(Free Text in Aprima) URINALYSIS NONAUTO W/O SCOPE 11476 GLUCOSE negative DateTime(Free Text in Aprima) URINALYSIS NONAUTO W/O SCOPE 93703 Protein negative DateTime(Free Text in Aprima) URINALYSIS NONAUTO W/O SCOPE 91543 Blood negative DateTime( Free Text in Aprima) URINALYSIS NONAUTO W/O SCOPE 34892 Bilirubin negative DateTime(Free Text in Aprima) URINALYSIS NONAUTO W/O SCOPE 76870 Ketones trace DateTime(Free Text in Apr[employer]) URINALYSIS NONAUTO W/O SCOPE 46790 Urobilinogen negative DateTime(Free Text in Aprima) URINALYSIS NONAUTO W/O SCOPE 81411 Nitrite negative DateTime(Free Text in Aprima) URINALYSIS NONAUTO W/O SCOPE 36419 Leukocytes 1+ DateTime(Free Text in Aprima) URINALYSIS NONAUTO W/O SCOPE 20501 Specific Hannah 1.005 DateTime(Free Text in Aprima) URINALYSIS NONAUTO W/O SCOPE 61025 PH 5 DateTime(Free Text in Aprima) URINALYSIS NONAUTO W/O SCOPE 70099 GLUCOSE neg DateTime( Free Text in Aprima) URINALYSIS NONAUTO W/O SCOPE 98471 Protein neg DateTime( Free Text in Aprima) URINALYSIS NONAUTO W/O SCOPE 83087 Blood neg DateTime(Free Text in Aprima) URINALYSIS NONAUTO W/O SCOPE 36799 Bilirubin neg DateTime(Free Text in Aprima) URINALYSIS NONAUTO W/O SCOPE 81254 Ketones neg DateTime( Free Text in Aprima) URINALYSIS NONAUTO W/O SCOPE 72905 Urobilinogen neg DateTime(Free Text in Aprima) URINALYSIS NONAUTO W/O SCOPE 14979 Nitrite neg DateTime( Free Text in Aprima) URINALYSIS NONAUTO W/O SCOPE 23465 Leukocytes neg DateTime(Free Text in Aprima) URINALYSIS NONAUTO W/O SCOPE 73729 Specific Hannah 1.010 DateTime(Free Text in Aprima) URINALYSIS NONAUTO W/O SCOPE 97991 PH 6 DateTime(Free Text in Aprima) URINALYSIS NONAUTO W/O SCOPE 26033 GLUCOSE DateTime( Free Text in Aprima) URINALYSIS NONAUTO W/O SCOPE 96127 Protein DateTime( Free Text in Aprima) URINALYSIS NONAUTO W/O SCOPE 30793 Blood DateTime(Free Text in Aprima) URINALYSIS NONAUTO W/O SCOPE 04745 Bilirubin DateTime( Free Text in Aprima) URINALYSIS NONAUTO W/O SCOPE 41105 Ketones DateTime( Free Text in Aprima) URINALYSIS NONAUTO W/O SCOPE 83510 Urobilinogen DateTime (Free Text in Aprima) URINALYSIS NONAUTO W/O SCOPE 65793 Nitrite DateTime( Free Text in Aprima) URINALYSIS NONAUTO W/O SCOPE 37514 Leukocytes trace DateTime(Free Text in Aprima) Review [...] kyphosis 10/16/2013 None Full Exam - General 1995 [...] atraumatic 07/10/2013 None Full Exam - General 1995 Constitutional general appearance Overall: well developed 07/10/2013 None Full Exam - General 1995 Constitutional general appearance Overall: in no acute distress 07/10/2013 None Full Exam - General 1995 Constitutional general appearance Overall: well nourished 07/10/2013 [...] wide-based 06/12/2013 None Full Exam - General 1995 Psychiatric orientation/consciousness Oriented to person: yes 06/12/2013 None Full Exam - General 1995 Psychiatric orientation/consciousness Oriented to place: no 06/12/2013 None Full Exam - General 1995 Psychiatric orientation/consciousness Oriented to time: no 06/12/2013 None Full Exam - General 1995 Psychiatric orientation/consciousness Level of consciousness: alert 06/12/2013 None Full Exam - General 1995 Psychiatric [...] bilaterally 01/06/2013 None Full Exam - General 1995 Respiratory respiratory effort/rhythm Overall: no retractions 01/06/2013 None Full Exam - General 1995 Respiratory respiratory effort/rhythm Overall: normal rate 01/06/2013 None Full Exam - General 1995 Cardiovascular extremities Overall: no clubbing 01/06/2013 None [...] rate 04/04/2012 None Full Exam - General 1995 Cardiovascular extremities Overall: no clubbing 04/04/2012 None Full Exam - General 1995 Cardiovascular auscultation of heart Overall: regular rate 04/04/2012 None Full Exam - General 1995 Cardiovascular auscultation of heart Overall: normal heart sounds 04/04/2012 None Full Exam - General 1995 Cardiovascular auscultation of heart Overall: no murmurs 04/04/2012 None Full Exam - General 1995 Abdomen abdominal exam Overall: no tenderness 04/04/2012 [...] kyphosis 04/04/2012 None Full Exam - General 1995 [...] FLU VACC PRSV FREE INC ANTIG CPT-4: 61518 06/22/2016 ADMIN PNEUMOCOCCAL VACCINE SNOMED CT: 70033983 CPT-4: G0009 09/16/2015 PNEUMOCOCCAL VACC 13 QUYEN IM Formatting Model/CDA Sections, Assigned to SNOMED CT: 98429643 CPT-4: 59758Venlejs 09/16/2015 ADMIN INFLUENZA VIRUS VAC Formatting Model/CDA Sections, Assigned to/Arabella Sharma CPT-4: Y0615Hcclxwx 07/01/2015 FLU VACC 4 QUYEN 3 YRS PLUS IM SNOMED CT: 05361135 CPT-4: 79850 07/01/2015 FLU VAC NO PRSV 4 QUYEN 3 YRS+ CPT-4: 74404 06/11/2014 ADMIN INFLUENZA VIRUS VAC Assigned to/Arabella Sharma CPT-4: Q4684Hckfumt 06/11/2014 URINALYSIS NONAUTO W/O SCOPE CPT-4: 36143 07/31/2013 ADMIN INFLUENZA VIRUS VAC CPT-4: G0008 07/07/2013 FLULAVAL VACC, 3 YRS & >, IM CPT-4: Q2036 07/07/2013 ROUTINE VENIPUNCTURE CPT-4: 01201 07/07/2013 25562 EST. PATIENT, LEVEL IV CPT-4: 73755 06/12/2013 65312 EST. PATIENT, LEVEL IV CPT-4: 84301 02/13/2013 ROUTINE VENIPUNCTURE CPT-4: 32377 01/06/2013 URINALYSIS NONAUTO W/O SCOPE CPT-4: 13258 01/06/2013 07213 EST. PATIENT, LEVEL IV CPT-4: 30092 09/19/2012 URINALYSIS NONAUTO W/O SCOPE CPT-4: 82818 09/19/2012 IMMUNIZATION ADMIN CPT -4: 53035 07/25/2012 Influenza Virus Vaccine, Split Virus, >3 Yrs, IM CPT-4: 89415 07/25/2012 URINALYSIS NONAUTO W/O SCOPE CPT-4: 97282 05/23/2012 URINALYSIS NONAUTO W/O SCOPE CPT-4: 00154 04/05/2012 Vital Signs Date Vital 08/16/2017 Blood Pressure 1: 130/68 Code : 8480-6 BMI: 28.9 Code : 84949-1 Heart Rate 1 : 63 bpm Height: 5'2" SpO2: 96% Weight: 158 lbs 05/17/2017 Blood Pressure 1: 138/80 Code : 8480-6 Heart Rate 1: 88 bpm Height: SpO2: 96% Weight: 04/25/2017 Blood Pressure 1: 140/74 Code : 8480-6 BMI: 29.8 Code : 10583-1 Heart Rate 1 : 106 bpm Height: 5'2" SpO2: 96% Weight: 163 lbs 03/22/2017 Blood Pressure 1: 128/82 Code : 8480-6 BMI: 30.4 Code : 70771-9 Heart Rate 1 : 76 bpm Height: 5'2" SpO2: 95% Weight: 166 lbs 12/21/2016 Blood Pressure 1: 144/80 Code : 8480-6 BMI: 30.9 Code : 08086-0 Heart Rate 1 : 72 bpm Height: 5'2" SpO2: 98% Weight: 169 lbs 09/21/2016 Blood Pressure 1: 140/76 Code : 8480-6 BMI: 30.5 Code : 56165-6 Heart Rate 1 : 78 bpm Height: 5'2" SpO2: 97% Weight: 167 lbs 06/22/2016 Blood Pressure 1: 132/74 Code : 8480-6 BMI: 30.9 Code : 50693-8 Heart Rate 1 : 71 bpm Height: 5'2" SpO2: 98% Weight: 169 lbs 03/23/2016 Blood Pressure 1: 122/68 Code : 8480-6 BMI: 29.8 Code : 93102-5 Heart Rate 1 : 68 bpm Height: 5'2" SpO2: 98% Weight: 163 lbs 12/16/2015 Blood Pressure 1: 142/70 Code : 8480-6 BMI: 30.5 Code : 60780-7 Heart Rate 1 : 68 bpm Height: 5'2" SpO2: 98% Weight: 167 lbs 09/16/2015 Blood Pressure 1: 124/58 Code : 8480-6 BMI: 30.0 Code : 44086-4 Heart Rate 1 : 59 bpm Height: 5'2" SpO2: 96% Weight: 164 lbs 07/01/2015 Blood Pressure 1: 128/74 Code : 8480-6 BMI: 29.8 Code : 26716-4 Heart Rate 1 : 62 bpm Height: 5'2" SpO2: 98% Weight: 163 lbs 02/25/2015 Blood Pressure 1: 142/92 Code : 8480-6 Blood Pressure 2: 138/90 Code: 8480-6 BMI: 29.1 Code: 94931-7 Heart Rate 1: 78 bpm Height: 5'2" SpO2: 98% Weight: 159 lbs 11/19/2014 Blood Pressure 1: 130/80 Code : 8480-6 BMI: 28.3 Code : 58461-3 Heart Rate 1 : 68 bpm Height: 5'2" Weight: 155 lbs 08/13/2014 Blood Pressure 1: 122/62 Code : 8480-6 BMI: 27.4 Code : 22353-8 Heart Rate 1 : 72 bpm Height: 5'2" Weight: 150 lbs 06/11/2014 Blood Pressure 1: 112/56 Code : 8480-6 BMI: 27.0 Code : 58101-8 Heart Rate 1 : 67 bpm Height: 5'2" SpO2: 98% Weight: 147 lbs 8 oz 04/16/2014 Blood Pressure 1: 120/62 Code : 8480-6 BMI: 26.7 Code : 72668-3 Heart Rate 1 : 68 bpm Height: 5'2" Weight: 146 lbs 03/12/2014 Blood Pressure 1: 132/82 Code : 8480-6 BMI: 27.1 Code : 92410-9 Heart Rate 1 : 64 bpm Height: 5'2" Weight: 148 lbs 02/26/2014 Blood Pressure 1: 104/50 Code : 8480-6 BMI: 25.8 Code : 30095-3 Heart Rate 1 : 64 bpm Height: 5'2" Weight: 141 lbs 11/27/2013 Blood Pressure 1: 122/68 Code : 8480-6 Heart Rate 1: 60 bpm Weight: 153 lbs 10/16/2013 Blood Pressure 1: 136/72 Code : 8480-6 BMI: 27.4 Code : 33203-1 Heart Rate 1 : 80 bpm Height: 5'2" Weight: 150 lbs 07/10/2013 Blood Pressure 1: 126/76 Code : 8480-6 BMI: 27.3 Code : 09257-2 Heart Rate 1 : 80 bpm Height: 5'2" Weight: 149 lbs 06/12/2013 Blood Pressure 1: 168/80 Code : 8480-6 BMI: 27.3 Code : 64582-3 Heart Rate 1 : 76 bpm Height: 5'2" Weight: 149 lbs 8 oz 02/13/2013 Blood Pressure 1: 108/72 Code : 8480-6 BMI: 27.4 Code : 65174-2 Heart Rate 1 : 80 bpm Height: 5'2" Weight: 150 lbs 01/06/2013 Blood Pressure 1: 126/62 Code : 8480-6 BMI: 27.6 Code : 59793-0 Heart Rate 1 : 76 bpm Height: [...] Code : 8480-6 BMI: 27.8 Code : 00822-3 Heart Rate 1 : 80 bpm Height: [...] dizzy spell yesterday while eating lunch. Took 1 meclizine-states it helped but it put her [...] Present Encounters Encounter Performer Location Codes Date ([id number]) 97434 EST. 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 PATIENT, LEVEL IV Diagnosis: Mixed hyperlipidemia[ICD10: E78.2] Diagnosis: Dementia with Lewy bodies[ICD10: G31.83] Diagnosis: Major depressive disorder, recurrent, mild[ICD10: F33.0] Allie Mcneill MD [facility] CPT-4: 82872 12/21/2016 ([id number]) 58755 EST. PATIENT, LEVEL IV Diagnosis: Dementia with Lewy bodies[ICD10: G31.83] Diagnosis: Mixed hyperlipidemia[ICD10: E78.2] Diagnosis: Encounter for immunization[ICD10: Z23] Diagnosis: Major depressive disorder, recurrent, mild[ICD10: F33.0] Allie Mcneill MD [facility] CPT-4: 87716 09/21/2016 ([id number]) 92919 EST. PATIENT, LEVEL III Diagnosis: Encounter for immunization[ICD10: Z23] Diagnosis: Dementia with Lewy bodies[ICD10: G31.83] Diagnosis: Major depressive disorder, recurrent, mild[ICD10: F33.0] Allie Mcneill MD, [facility] CPT-4: 14528 06/22/2016 ([id number]) 46411 EST. PATIENT, LEVEL III Diagnosis: Mixed hyperlipidemia[ICD10: E78.2] Diagnosis: Dementia with Lewy bodies[ICD10: G31.83] Allie Mcneill MD, [facility] CPT-4: 71654 03/23/2016 ([id number]) 42056 EST. PATIENT, LEVEL IV Diagnosis: Dementia with Lewy bodies[ICD10: G31.83] Diagnosis: Other hallucinations[ICD10: R44.2] Diagnosis: Mixed hyperlipidemia[ICD10: E78.2] Allie Mcneill MD, [facility] CPT-4: 28583 12/16/2015 ([id number]) 62455 EST. PATIENT, LEVEL IV Diagnosis: Dementia with Lewy bodies[ICD10: G31.83] Diagnosis: Other hallucinations[ICD10: R44.2] Diagnosis: Mixed hyperlipidemia[ICD10: E78.2] Diagnosis: Encounter for immunization[ICD10: Z23] Allie Mcneill MD, [facility] CPT-4: 42494 09/16/2015 ([id number]) 41557 EST. 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 PATIENT, LEVEL IV Diagnosis: HYPERLIPIDEMIA[ICD9: 272.4] Diagnosis: Dementia[ICD9: 294.20] Diagnosis: LEWY BODY DEMENTIA[ICD9: 331.82] Allie Mcneill MD, [facility] CPT-4: 30557 02/25/2015 ([id number]) 53789 EST. PATIENT, LEVEL IV Diagnosis: HYPERLIPIDEMIA[ICD9: 272.4] Diagnosis: Dementia[ICD9: 294.20] Diagnosis: LEWY BODY DEMENTIA[ICD9: 331.82] Allie Mcneill MD, [facility] CPT-4: 53666 11/19/2014 ([id number] 48812 EST. PATIENT, LEVEL IV Diagnosis: HYPERLIPIDEMIA[ICD9: 272.4] Diagnosis: LEWY BODY DEMENTIA[ICD9: 331.82] Allie Mcneill MD, [facility] CPT-4: 93524 08/13/2014 ([id number]) 28069 EST. PATIENT, LEVEL IV Diagnosis: LEWY BODY DEMENTIA[ICD9: 331.82] Diagnosis: Psychosis[ICD9: 298.9] Allie Mcneill MD, [facility] CPT-4: 50367 06/11/2014 ([id number]) 31910 EST. PATIENT, LEVEL III Diagnosis: Lewy body dementia with behavioral disturbance[ICD9: 331.82] Diagnosis: Ulcer of gingiva[ICD9: 523.8] Shari Mcneill MD, [facility] CPT-4: 28907 04/16/2014 ([id number]) 55010 EST. PATIENT, LEVEL IV Diagnosis: Shingles[ICD9: 053.9] Diagnosis: Oral aphthae[ICD9: 528.2] Diagnosis: Yeast infection of the skin[ICD9: 112.3] Allie Mcneill MD, [facility] CPT-4: 12978 03/12/2014 ([id number]) 75308 EST. PATIENT, LEVEL IV Diagnosis: DEMEN NOS 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[ICD9: 294.20] Diagnosis: LEWY BODY DEMENTIA[ICD9: 331.82] Diagnosis: Impacted cerumen of both ears[ICD9: 380.4] Diagnosis: Weight loss[ICD9: 783.21] Diagnosis: Shingles rash[ICD9: 053.9] Allie Mcneill MD, [facility] CPT- 4: 35546 02/26/2014 ([id number]) 34041 EST. PATIENT, LEVEL IV Diagnosis: SENILE DELUSION[ICD9: 290.20] Diagnosis: LEWY BODY DEMENTIA[ICD9: 331.82] Diagnosis: HALLUCINATIONS[ICD9: 780.1] Diagnosis: PSYCHOSIS[ICD9: 298.9] Allie Mcneill MD, [facility] CPT-4: 16696 11/27/2013 ([id number]) 22723 EST. PATIENT, LEVEL IV Diagnosis: LEWY BODY DEMENTIA[ICD9: 331.82] Diagnosis: HALLUCINATIONS[ICD9: 780.1] Diagnosis: PSYCHOSIS[ICD9: 298.9] Allie Mcneill MD [facility] CPT-4: 54484 10/16/2013 ([id number]) 09139 EST. PATIENT, LEVEL III Diagnosis: LEWY BODY DEMENTIA[ICD9: 331.82] Diagnosis: HALLUCINATIONS[ICD9: 780.1] Allie Mcneill MD, [facility] CPT- 4: 90485 07/10/2013 ([id number]) 20569 EST. PATIENT, LEVEL IV Diagnosis: LEWY BODY DEMENTIA[ICD9: 331.82] Diagnosis: HALLUCINATIONS[ICD9: 780.1] Diagnosis: Dehydration[ICD9: 276.51] Diagnosis: Dementia[ICD9: 294.20] Allie Mcneill MD, [facility] CPT-4: 75883 01/06/2013 15294 EST. PATIENT, LEVEL III Diagnosis: Candidiasis of breast[ICD9: 112.2] Diagnosis: Seborrheic keratosis[ICD9: 702.19] Diagnosis: Dry skin[ICD9: 782.9] Shari Mcneill MD, [facility] CPT-4: 50464 08/08/2012 ([id number]) 12388 EST. PATIENT, LEVEL IV Diagnosis: LEWY BODY DEMENTIA[ICD9: 331.82] Diagnosis: HALLUCINATIONS[ICD9: 780.1] Allie Mcneill MD [facility] CPT- 4: 71732 05/23/2012 ([id number]) 08286 EST. PATIENT, LEVEL IV Diagnosis: HALLUCINATIONS[ICD9: 780.1] Diagnosis: LEWY BODY DEMENTIA[ICD9: 331.82] Allie Mcneill MD [facility] CPT-4: 63596 04/04/2012 ([id number]) 48543 EST. PATIENT, LEVEL IV Diagnosis: Lewy body dementia with behavioral disturbance[ICD9: 331.82] Diagnosis: Hallucinations[ICD9: 780.1] Diagnosis: INSOMNIA IN OTHER DIS[ICD9: 327.01] Allie Mcneill MD, [facility] CPT-4: 24692 03/21/2012 Plan of Care Planned Activity Notes Codes Status Date Appointment: Allie Mcneill WPtel: [phone] [phone] (15 min) Moderate 11/15/2017 Visit Plan: Hypertension [...] 4 months 08/16/2017 Appointment: Allie Mcneill WPtel: [address] [place], [place] [phone] (15 min) Moderate 08/16/2017 Patient Education: Patient [...] level, symptoms. 05/17/2017 Appointment: All[facility] Mc[facility]ill [facility]el[facility] ([facility] min) Moderate 05/17/2017 Patient Education: Patient [...] at home. 04/25/2017 Appointment: Allie Mcneill WPtel: [facility] (15 min) Moderate 04/25/2017 Patient Education: Patient Medication Summary Completed 04/25/2017 Appointment: [phone] (15 min) Moderate 04/19/2017 Visit Plan: Dementia [...] Trazodone taper. 03/22/2017 Appointment: Allie Mcneill WPtel: [phone] [phone] (15 min) Moderate 03/22/2017 Patient Education: Patient [...] current medications. 12/21/2016 Appointment: [phone] (15 min) Moderate 12/21/2016 Patient Education: Patient [...] current medications. 09/21/2016 Appointment: [facility]: [phone] (15 min) Moderate 09/21/2016 Patient Education: Patient [...] change in current medications. 06/22/2016 Appointment: [phone] (15 min) [...] psychosis. 03/23/2016 Appointment: [phone] (15 min) Moderate 03/23/2016 Patient Education: Patient [...] medical problem. 12/16/2015 Appointment: [phone] [place] (15 min) Moderate 12/16/2015 Patient Education: Patient [...] medications 09/16/2015 Appointment: [phone] psychosis. 07/01/2015 Appointment: [facility]: [phone] [...] 1 month then stop the Marinol as [place] has had resolution of her weight loss. Seasonal allergies with nasal drainage -start casi 11/19/2014 Appointment: Allie Mcneill WPtel: [address] [place], [place] [phone] Follow up 11/19/2014 Patient Education: Patient Medication Summary Completed 11/19/2014 Appointment: Allie Mcneill WPtel: [address] [place], [place] [phone] Follow up 11/12/2014 Appointment: Allie Mcneill WPtel: [address] [place], [place] [phone] Follow up 09/10/2014 Visit Plan: Hyperlipidemia - [...] effectiveness. 08/13/2014 Appointment: Allie Mcneill WPtel: [phone] [id number] [place] Follow up 08/13/2014 Patient Education: Patient [...] this time. 06/11/2014 Appointment: Allie Mcneill WPtel: [phone] [id number] Follow up 06/11/2014 Patient Education: Patient Medication [...] 10 days. 03/12/2014 Appointment: Allie Mcneill WPtel: [phone] [id number] [place] Follow up 03/12/2014 Patient Education: Patient [...] considered contagious. 02/26/2014 Appointment: Allie Mcneill WPtel: [phone] [place] Follow up 02/26/2014 Patient Education: Patient Medication Summary Completed 02/26/2014 Appointment: Allie Mcneill WPtel: [address] [place], [place] [phone] [place] Follow up 02/04/2014 Appointment: Allie Mcneill WPtel: [address] [place], [place] [phone] [place] Follow up 01/19/2014 Visit Plan: Dementia [...] HELP AUGMENT PATIENT' S COMFORT AT THE [facility]. 11/27/2013 Appointment: Allie Mcneill WPtel: [address] [place], [place] [phone] [place] Follow up 11/27/2013 Patient Education: Patient [...] not improve. 10/16/2013 Appointment: Allie Mcneill WPtel: [phone] [place] Follow up 10/16/2013 Patient Education: Patient Medication Summary Completed 10/16/2013 Appointment: Shari Parada WPtel: [id number] [place] Lab Draw 07/31/2013 Patient Education: Patient Medication Summary Completed 07/31/2013 Appointment: [facility]: [phone] [place] [facility] 07/30/2013 Visit Plan: Lewy body dementia - symptoms improved on higher dose of risperdol - continue to monitor symptoms - family to call if hallucinations worsen again. 07/10/2013 Appointment: [phone] Follow [facility] 07/10/2013 Patient Education: Patient Medication [...] effecitveness. 06/12/2013 Appointment: [facility] Mc[facility]ill [facility]el: [phone] Follow [facility] [...] to medications. 02/13/2013 Appointment: [facility]ill [facility]: [phone] Follow [facility] [...] UA. 01/06/2013 Appointment: Allie Mcneill WPtel: [phone] [phone] Follow up 01/06/2013 Patient Education: Patient Medication [...] check UA. 09/19/2012 Appointment: Allie Mcneill WPtel: [phone] Established Patient Preventative visit 09/19/2012 Patient Education: Patient Medication Summary Completed 09/19/2012 Visit Plan: Candidiasis of breasts-discussed natural and expected course of this diagnosis and to alert me if sympotms do not follow expected course, or if any worse. Keep areas clean and dry. RX sent to patient' s pharmacy and instructed on use. Seborrheic jsleksypv-uxcpbwr-bmsehmphe eucerin cream as needed to back Dry ivoy-czjn-xdqopjggk moisturizer such as eucerin to face-call if worsens 08/08/2012 Appointment: [phone] [place] rash 08/08/2012 Patient Education: Patient Medication Summary Completed 08/08/2012 Appointment: [facility]ill [facility]el: [phone] [place] Injection 07/25/2012 Patient Education: Patient Medication [...] rest. 05/23/2012 Appointment: [facility]: [phone] Follow [facility] 05/23/2012 Patient Education: Patient Medication Summary Completed 05/23/2012 Appointment: Shari Parada WPtel: [phone] [phone] Lab Draw 04/05/2012 Patient Education: Patient Medication [...] regimen. 04/04/2012 Appointment: [facility]: [phone] Follow [facility] 04/04/2012 Patient Education: Patient Medication Summary Completed 04/04/2012 Visit Plan: Lewy Body Dementia - pt has been having hallucinations, auditory, visual, gustatory, she was recently in the hospital, then was transfered to a geriatric psychiatric facility in [place] for inpatient psych treatment. She was discharged [...] are opened. 03/21/2012 Appointment: Allie Mcneill WPtel: [facility] [facility] [...] TO HELP AUGMENT PATIENT'S COMFORT AT THE [facility]. . Hypertension - well controlled - continue [...] patient's pharmacy and instructed on use. Seborrheic dpwavsfna-vmcjzvk-bssywrtui eucerin cream as needed to back Dry fppz-ufro-zgnunswov moisturizer such as eucerin to face-call if [...] transfered to a geriatric psychiatric facility in [place] for inpatient psych treatment. She was discharged [...]
[2018-01-02 20:01] LABS: BASOPHILS % (AUTO) 0 % (0-10); EOSINOPHILS # (AUTO) 0.2 10^3/uL (0.0-0.3); EOSINOPHILS % (AUTO) 1 % (0-10); HEMATOCRIT 36 % (35-52); HEMOGLOBIN 11.9 G/DL (11.5-16.0); LYMPHOCYTES # (AUTO) 2.2 X 10^3 (1.0-4.0); LYMPHOCYTES % (AUTO) 18 % (12-44); MEAN CORPUSCULAR HEMOGLOBIN 30 PG (25-34); MEAN CORPUSCULAR HGB CONC 33 G/DL (32-36); MEAN CORPUSCULAR VOLUME 91 FL (80-99); MEAN PLATELET VOLUME 11.5 FL (7.4-10.4); MONOCYTES # (AUTO) 1.7 X 10^3 (0.0-1.0); MONOCYTES % (AUTO) 14 % (0-12); NEUTROPHILS # (AUTO) 8.1 X 10^3 (1.8-7.8); NEUTROPHILS % (AUTO) 67 % (42-75); PLATELET COUNT 251 10^3/uL (130-400); RED BLOOD COUNT 3.96 10^6/uL (4.35-5.85); RED CELL DISTRIBUTION WIDTH 13.9 % (10.0-14.5); WHITE BLOOD COUNT 12.2 10^3/uL (4.3-11.0)
[2018-01-02 20:05] LABS: INR 1.2 (0.8-1.4); PROTHROMBIN TIME PATIENT 15.1 SEC (12.2-14.7)
--- NOTE | 2018-01-02 20:09 | ED Trauma-Multisystem ---
General Chief Complaint: Trauma-Non Activation Stated Complaint: FALL Nursing Triage Note: see trauma note. History of Present Illness Date Seen by Provider: Jan 02, 2018 Time Seen by Provider: 19:40 Initial Comments 87 Year old Female fell at her LTC facility earlier this evening. She is confused with history of dementia and unable to provide history. Report from [place] is that she fell and possibly hit her head. Neck pain is from C-collar. She is actively moving Upper and Lower Ext, pain to palpation on lateral left hip. She is DNR and had a subdural hematoma treated conservatively in April 2017. Family reports increased confusion over last week, recently dx with UTI and on antibiotic therapy. Location Injury Occurred: [facility] Occurred: This Evening Severity: Mild Pain/Injury Location: Head, Lower Extremity (Left hip), Neck Method of Injury: Fall Loss of Consciousness: Unsure Associated Symptoms (Fall): Denies Symptoms Allergies and Home Medications Allergies Coded Allergies: No Known Drug Allergies (Unverified , 03/02/12) Home Medications Acetaminophen 500 Mg Tablet, 1,000 MG PO Q6H PRN for PAIN-MILD, (Reported) TAKES 2 (500MG) TABLETS Calcium Carbonate/Vitamin D3 1 Each Capsule, 1 CAP PO DAILY, (Reported) Cholecalciferol (Vitamin D3) 1,000 Unit Tablet, 2,000 UNIT PO DAILY, (Reported) TAKES 2 (1000 UNIT) TABLETS Citalopram Hydrobromide 20 Mg Tablet, 20 MG PO DAILY, (Reported) Clopidogrel Bisulfate 75 Mg Tablet, 75 MG PO DAILY, (Reported) Cyanocobalamin (Vitamin B-12) 500 Mcg Tablet, 500 MCG PO DAILY, (Reported) Dextromethorphan HBr 15 Mg/5 Ml Liquid, 10 ML PO Q4H PRN for COUGH, (Reported) Fluticasone Propionate 16 Gm [place].susp, 1 SPRAY NS BID, (Reported) Guaifenesin 400 Mg Tablet, 400 MG PO Q4H PRN for CONGESTION, (Reported) Lorazepam 0.5 Mg Tablet, 0.5 MG PO DAILY, (Reported) Losartan Potassium 50 Mg Tablet, 50 MG PO DAILY Prescribed by: NICOLE TSANG on 04/18/17 1117 Melatonin 3 Mg Tablet, 6 MG PO HS, (Reported) TAKES 2 (3MG) TABLETS Memantine HCl 10 Mg Tablet, 10 MG PO BID, (Reported) Pantoprazole Sodium 20 Mg Tablet.dr, 20 MG PO DAILY, (Reported) Risperidone 0.25 Mg Tablet, 0.25 MG PO HS, (Reported) Risperidone 0.5 Mg Tablet, 0.5 MG PO Q6H PRN for BEHAVIOR, (Reported) Rivastigmine 9.5 Mg Patch, 9.5 MG TD DAILY, (Reported) Patient Home Medication List Home Medication List Reviewed: Yes Constitutional: no symptoms reported, see HPI Eyes: See HPI, Vision Changes (related to Macular Degeneration) Ears: No Symptoms Reported, See HPI Nose: No Symptoms Reported, See HPI Mouth: No Symptoms Reported, See HPI Throat: No Symptoms to Report, See HPI Respiratory: no symptoms reported, see HPI Cardiovascular: No Symptoms Reported, See HPI Gastrointestinal: see HPI, abdominal pain (generalized) Genitourinary: see HPI, frequency Musculoskeletal: see HPI, joint pain (left lateral hip), neck pain Skin: no symptoms reported, see HPI Psychiatric/Neurological: No Symptoms Reported, Cognitive Dysfunction (chronic) All Other Systems Reviewed Negative Unless Noted: Yes Past Yypauoy-Mjefww-Rfssig Hx Patient Social History Alcohol Use: Denies Use Recreational Drug Use: No Smoking Status: Unknown if Ever Smoked 2nd Hand Smoke Exposure: No Recent Foreign Travel: No Contact w/Someone Who Travel: No Recent Infectious Disease Expo: No Recent Hopitalizations: No Immunizations Up To Date Date of Pneumonia Vaccine: Jul 18, 2016 Seasonal Allergies Seasonal Allergies: No Surgeries History of Surgeries: Yes Surgeries: Hysterectomy Respiratory History of Respiratory Disorde: No Cardiovascular History of Cardiac Disorders: Yes Cardiac Disorders: Hypertension Neurological History of Neurological Disord: Yes Neurological Disorders: Dementia Reproductive System Hx Reproductive Disorders: Yes Sexually Transmitted Disease: No HIV/AIDS: No Female Reproductive Disorders: Denies Genitourinary History of Genitourinary Disor: No Genitourinary Disorders: UTI-Chronic Gastrointestinal History of Gastrointestinal Di: No Musculoskeletal History of Musculoskeletal Dis: No Endocrine History of Endocrine Disorders: No HEENT History of HEENT Disorders: No Loss of Vision: Bilateral Hearing Impairment: Denies Cancer History of Cancer: No Psychosocial History of Psychiatric Problem: Yes Behavioral Health Disorders: Anxiety, Depression Integumentary History of Skin or Integumenta: No Blood Transfusions History of Blood Disorders: No Adverse Reaction to a Blood Tr: No Reviewed Nursing Assessment Reviewed/Agree w Nursing PMH: Yes Family Medical History Significant Family History: Hypertension Physical Exam Vital Signs Vital Signs - First Documented 01/02/18 19:30 Temp 98.9 Pulse 76 Resp 16 B/P (MAP) 187/98 (127) Pulse Ox 96 O2 Delivery Room Air Temperature (Fahrenheit): 98.9 General Appearance: No Apparent Distress, WD/WN Head: No Evidence of Injury, No Active Bleeding, No Ecchymosis, No Lacerations , No Swelling, No Tenderness Eyes: Bilateral Eye Normal Inspection, Bilateral Eye PERRL Ears, Nose, Throat: No Evidence of ENT Injury, No Dental Injury Neck: Normal Inspection, Non Tender, No Lymphadenopathy (L), No Lymphadenopathy (R), No Tender Lateral, No Tender Midline Cardiovascular: Regular Rate, Rhythm Gastrointestinal: Normal Bowel Sounds, Distended, No Guarding, Tenderness ( Bilat LQs with distended lower abdomen. ) Back: Normal Inspection, No CVA Tenderness Extremity: Normal Capillary Refill, Normal Inspection Neurologic/Psychiatric: Alert, No Oriented x3 Skin: Normal Color, Warm/Dry Comments Full Active and Passive ROM to bilat hips, knees and ankles. Pain to palpation lateral left thigh. Neurovas status intact bilat LEs. [place] Coma Score Best Eye Response (Brenda): (4) Open Spontaneously Best Verbal Response (Brenda): (3) Inappropriate Words Best Motor Response (Brenda): (6) Obeys Commands Brenda Total: 13 Progress/Results/Core Measures Results/Orders Lab Results Laboratory Tests Test 01/02/18 19:30 01/02/18 21:05 Range/Units White Blood Count 12.2 H 4.3-11.0 10^3/uL Red Blood Count 3.96 L 4.35-5.85 10^6/uL Hemoglobin 11.9 11.5-16.0 G/DL Hematocrit 36 35-52 % Mean Corpuscular Volume 91 80-99 FL Mean Corpuscular Hemoglobin 30 25-34 PG Mean Corpuscular Hemoglobin Concent 33 32-36 G/DL Red Cell Distribution Width 13.9 10.0-14.5 % Platelet Count 251 130-400 10^3/uL Mean Platelet Volume 11.5 H 7.4-10.4 FL Neutrophils (%) (Auto) 67 42-75 % Lymphocytes (%) (Auto) 18 12-44 % Monocytes (%) (Auto) 14 H 0-12 % Eosinophils (%) (Auto) 1 0-10 % Basophils (%) (Auto) 0 0-10 % Neutrophils # (Auto) 8.1 H 1.8-7.8 X 10^3 Lymphocytes # (Auto) 2.2 1.0-4.0 X 10^3 Monocytes # (Auto) 1.7 H 0.0-1.0 X 10^3 Eosinophils # (Auto) 0.2 0.0-0.3 10^3/uL Basophils # (Auto) 0.0 0.0-0.1 10^3/uL Prothrombin Time 15.1 H 12.2-14.7 SEC INR Comment 1.2 0.8-1.4 Activated Partial Thromboplast Time 31 24-35 SEC Sodium Level 136 135-145 MMOL/L Potassium Level 4.1 3.6-5.0 MMOL/L Chloride Level 102 98-107 MMOL/L Carbon Dioxide Level 27 21-32 MMOL/L Anion Gap 7 5-14 MMOL/L Blood Urea Nitrogen 7 7-18 MG/DL Creatinine 0.73 0.60-1.30 MG/DL Estimat Glomerular Filtration Rate > 60 BUN/Creatinine Ratio 10 Glucose Level 115 H 70-105 MG/DL Calcium Level 8.6 8.5-10.1 MG/DL Total Bilirubin 0.3 0.1-1.0 MG/DL Aspartate Amino Transf (AST/SGOT) 16 5-34 U/L Alanine Aminotransferase (ALT/SGPT) 7 0-55 U/L Alkaline Phosphatase 69 40-136 U/L Total Protein 6.5 6.4-8.2 GM/DL Albumin 3.7 3.2-4.5 GM/DL Urine Color YELLOW Urine Clarity CLEAR Urine pH 7 5-9 Urine Specific [place] 1.010 L 1.016-1.022 Urine Protein NEGATIVE NEGATIVE Urine Glucose (UA) NEGATIVE NEGATIVE Urine Ketones NEGATIVE NEGATIVE Urine Nitrite NEGATIVE NEGATIVE Urine Bilirubin NEGATIVE NEGATIVE Urine Urobilinogen NORMAL NORMAL MG/DL Urine Leukocyte Esterase NEGATIVE NEGATIVE Urine RBC (Auto) NEGATIVE NEGATIVE Urine RBC NONE /HPF Urine WBC RARE /HPF Urine Squamous Epithelial Cells RARE /HPF Urine Crystals NONE /LPF Urine Bacteria NONE /HPF Urine Casts NONE /LPF Urine Mucus NEGATIVE /LPF Urine Culture Indicated NO My Orders Orders - ALEIDA BROWN Ct Abdomen/Pelvis Wo (01/02/18 19:54) Ct Head/Cervical Spine Wo (01/02/18 19:54) Pelvis With Left Hip 2-3 Views (01/02/18 19:54) Cbc With Automated Diff (01/02/18 19:54) Comprehensive Metabolic Panel (01/02/18 19:54) Protime With Inr (01/02/18 19:54) Partial Thromboplastin Time (01/02/18 19:54) Acetaminophen Tablet/Caplet (Tylenol T (01/02/18 20:48) Ua Culture If Indicated (01/02/18 20:49) Vital Signs/I&O Vital Sign - Last 12Hours 01/02/18 01/02/18 19:30 21:50 Temp 98.9 98.9 Pulse 76 76 Resp 16 16 B/P (MAP) 187/98 (127) 187/98 (127) Pulse Ox 96 96 O2 Delivery Room Air Blood Pressure Mean: 127 Progress Note : Time: 19:40 Progress Note Initial evaluation completed. Recommended labs and CT of head/neck. Keep C- collar on until CT. X-ray pelvis and left hip. CT Abd/Pelvis. Family at bedside. All questions answered. 2037 CT head and neck, no acute abnormalities. C-Collar removed. No neck pain, radicular or paraesthesia s/s. She is now complaining of mid-Lumbar back pain. Will give Tylenol. Review CT Abdomen/Pelvis and no fx or other acute abnormality noted in the lumbar spine. 2100 catheter placed and 500 mils of clear urine return immediately, urine sent to lab. 2114 UA essentially normal. Discussed results with the patient and her family. Recommended return to long-term care facility. Discharge instructions and return precautions reviewed. Diagnostic Imaging Diagonstic Imaging: CT Plain Films/CT/US/NM/MRI: abdomen, pelvis Comments NAME: RUPALI [facility]DEN [facility] REC#: [id number] PT STATUS: REG ER : 1930 PHYSICIAN: ALEIDA BROWN ADMIT DATE: 01/02/18/ER Draft Date of Exam:01/02/18 CT ABDOMEN/PELVIS WO PROCEDURE: CT abdomen and pelvis without contrast. TECHNIQUE: Multiple contiguous axial images were obtained through the abdomen and pelvis without the use of intravenous contrast. INDICATION: Unwitnessed fall. FINDINGS: There is cardiomegaly. The lung bases are clear. The liver is normal in size and without focal lesions. Gallbladder is unremarkable. There is no biliary ductal dilatation. Spleen is normal. The pancreas, adrenal glands and kidneys are unremarkable. There is some atherosclerotic calcification of the aorta. The bowel gas pattern is nonspecific. There is no free air. There is no ascites. There are no focal inflammatory changes. Bladder is normal. There is no pelvic mass, adenopathy or free fluid. There are degenerative changes in the spine. The bony pelvis appears to be intact. There is no fracture or traumatic subluxation. IMPRESSION: 1. Cardiomegaly. 2. Degenerative changes in the spine without acute fracture or traumatic subluxation. 3. No other acute abnormality in the abdomen or pelvis. Dictated on workstation # [id number] Dict: 01/02/182024 Trans: 01/02/182028 [facility] [phone] Interpreted by: ELOISE SEARS MD Electronically signed by: Reviewed: Reviewed by Me Diagonstic Imaging: CT Plain Films/CT/US/NM/MRI: c-spine, head Comments NAME: RUPALI [facility]DEN [facility] REC#: [id number] PT STATUS: REG ER : 1930 PHYSICIAN: ALEIDA BROWN ADMIT DATE: 01/02/18/ER Draft Date of Exam:01/02/18 CT HEAD/CERVICAL SPINE WO PROCEDURE: CT head and CT cervical spine without contrast. TECHNIQUE: Multiple contiguous axial images were obtained through the brain and cervical spine without the use of intravenous contrast. Sagittal and coronal reformations through the cervical spine were then performed. INDICATION: Head and neck pain after fall. FINDINGS: There is prominence of the ventricles and sulci. There is moderate chronic microvascular ischemic disease. There is no hydrocephalus. There is no midline shift. There is no intracranial mass, hemorrhage or extra-axial fluid collection. There is a small mucus retention cyst or polyp in the right maxillary sinus. Remaining sinuses are clear. There is sclerosis of both mastoid air cells. The alignment of the cervical spine is normal. The vertebral body heights are well-maintained. There is no fracture or traumatic subluxation. There is multilevel degenerative disc disease and posterior facet arthropathy. There is no fracture or traumatic subluxation. The odontoid is intact. The lateral masses are well aligned. Lung apices are clear. The prevertebral soft tissues are within normal limits. IMPRESSION: 1. No acute intracranial abnormality. There is atrophy and moderate chronic microvascular ischemic disease. 2. Small mucus retention cyst or polyp in the right maxillary sinus. 3. Mild cervical spondylosis and degenerative disc disease without acute fracture or traumatic subluxation. Dictated on workstation # [id number] Dict: 01/02/182021 Trans: 01/02/182025 [facility] [id number] Interpreted by: ELOISE SEARS MD Electronically signed by: Reviewed: Reviewed by Me Diagonstic Imaging: Xray Plain Films/CT/US/NM/MRI: pelvis, hip Comments NAME: RUPALI [facility]DEN [facility] REC#: [id number] PT STATUS: REG ER : 1930 PHYSICIAN: ALEIDA BROWN ADMIT DATE: 01/02/18/ER Draft Date of Exam:01/02/18 PELVIS WITH LEFT HIP 2-3 VIEWS INDICATION: Fall. Three views were obtained. FINDINGS: Bony pelvis is intact. Proximal left femur is intact. There is no fracture or dislocation. Soft tissues are unremarkable. IMPRESSION: No acute fracture or dislocation Dictated on workstation # [id number] Dict: 01/02/182034 Trans: 01/02/182037 [facility] [phone] Interpreted by: ELOISE SEARS MD Electronically signed by: Reviewed: Reviewed by Me Departure Impression Impression: Primary Impression: Fall Qualified Codes: W19.XXXA - Unspecified fall, initial encounter Additional Impression: Dementia Qualified Codes: F03.91 - Unspecified dementia with behavioral disturbance Disposition: 01 HOME, SELF-CARE Condition: Stable Departure-Patient Inst. Decision time for Depature: 21:45 Referrals: BRADEN MCNEILL MD (PCP/Family) Primary Care Physician Patient Instructions: Preventing Falls Add. Discharge Instructions: Ambulate with walker or assistance to prevent falls. Follow up with Dr. Mcneill, as needed. Return to Emergency Dept for new injuries or problems. All discharge instructions reviewed with patient and/or family. Voiced understanding. Copy Copies To 1: SUNNIBRADEN ALEXANDER MD, AMY ARNP Jan 02, 2018 20:09
[2018-01-02 20:14] LABS: ALANINE AMINOTRANSFERASE 7 U/L (0-55); ALBUMIN 3.7 GM/DL (3.2-4.5); ALKALINE PHOSPHATASE 69 U/L (40-136); BILIRUBIN,TOTAL 0.3 MG/DL (0.1-1.0); BUN/CREATININE RATIO 10; CALCIUM 8.6 MG/DL (8.5-10.1); CARBON DIOXIDE 27 MMOL/L (21-32); CHLORIDE 102 MMOL/L (98-107); CREATININE SERUM 0.73 MG/DL (0.60-1.30); GFR ESTIMATED > 60; GLUCOSE 115 MG/DL (70-105); POTASSIUM 4.1 MMOL/L (3.6-5.0); SODIUM 136 MMOL/L (135-145); TOTAL PROTEIN 6.5 GM/DL (6.4-8.2)
--- NOTE | 2018-01-02 20:27 | Diagnostic Imaging Report ---
PROCEDURE: CT head and CT cervical spine without contrast. TECHNIQUE: Multiple contiguous axial images were obtained through the brain and cervical spine without the use of intravenous contrast. Sagittal and coronal reformations through the cervical spine were then performed. INDICATION: Head and neck pain after fall. FINDINGS: There is prominence of the ventricles and sulci. There is moderate chronic microvascular ischemic disease. There is no hydrocephalus. There is no midline shift. There is no intracranial mass, hemorrhage or extra-axial fluid collection. There is a small mucus retention cyst or polyp in the right maxillary sinus. Remaining sinuses are clear. There is sclerosis of both mastoid air cells. The alignment of the cervical spine is normal. The vertebral body heights are well-maintained. There is no fracture or traumatic subluxation. There is multilevel degenerative disc disease and posterior facet arthropathy. There is no fracture or traumatic subluxation. The odontoid is intact. The lateral masses are well aligned. Lung apices are clear. The prevertebral soft tissues are within normal limits. IMPRESSION: 1. No acute intracranial abnormality. There is atrophy and moderate chronic microvascular ischemic disease. 2. Small mucus retention cyst or polyp in the right maxillary sinus. 3. Mild cervical spondylosis and degenerative disc disease without acute fracture or traumatic subluxation. Dictated by: Dictated on workstation # [id number]
--- NOTE | 2018-01-02 20:30 | Diagnostic Imaging Report ---
PROCEDURE: CT abdomen and pelvis without contrast. TECHNIQUE: Multiple contiguous axial images were obtained through the abdomen and pelvis without the use of intravenous contrast. INDICATION: Unwitnessed fall. FINDINGS: There is cardiomegaly. The lung bases are clear. The liver is normal in size and without focal lesions. Gallbladder is unremarkable. There is no biliary ductal dilatation. Spleen is normal. The pancreas, adrenal glands and kidneys are unremarkable. There is some atherosclerotic calcification of the aorta. The bowel gas pattern is nonspecific. There is no free air. There is no ascites. There are no focal inflammatory changes. Bladder is normal. There is no pelvic mass, adenopathy or free fluid. There are degenerative changes in the spine. The bony pelvis appears to be intact. There is no fracture or traumatic subluxation. IMPRESSION: 1. Cardiomegaly. 2. Degenerative changes in the spine without acute fracture or traumatic subluxation. 3. No other acute abnormality in the abdomen or pelvis. Dictated by: Dictated on workstation # [id number]
--- NOTE | 2018-01-02 20:38 | Diagnostic Imaging Report ---
INDICATION: Fall. Three views were obtained. FINDINGS: Bony pelvis is intact. Proximal left femur is intact. There is no fracture or dislocation. Soft tissues are unremarkable. IMPRESSION: No acute fracture or dislocation Dictated by: Dictated on workstation # [id number]
[2018-01-02] MEDS ORDERED: ACETAMINOPHEN 325 MG TABLET/CAPLET (TYLENOL) PO STA (20:48)
[2018-01-02 21:15] LABS: BILIRUBIN,URINE NEGATIVE (NEGATIVE); CLARITY,URINE CLEAR; COLOR,URINE YELLOW; GLUCOSE, URINE (UA) NEGATIVE (NEGATIVE); KETONES,URINE NEGATIVE (NEGATIVE); LEUKOCYTE ESTERASE ,URINE NEGATIVE (NEGATIVE); NITRITE,URINE NEGATIVE (NEGATIVE); PH,URINE 7 (5-9); PROTEIN,URINE NEGATIVE (NEGATIVE); UROBILINOGEN,URINE NORMAL (NORMAL)
[2018-01-02 21:26] LABS: SQUAMOUS EPITHELIAL CELL,UR RARE /HPF; WBC,URINE RARE /HPF
[2018-01-02 21:50] VITALS: BP 187/98
== END 2018-01-02 21:50 | disposition home or self-care (01) ==
LOC: EDUNIT# 19:22 → ER 19:23
DX: F03.90 Unspecified dementia, unspecified severity, without behavioral disturbance, psychotic disturbance, mood disturbance, and anxiety (principal); M54.2 Cervicalgia; R40.2143 Coma scale, eyes open, spontaneous, at hospital admission; R40.2233 Coma scale, best verbal response, inappropriate words, at hospital admission; R40.2363 Coma scale, best motor response, obeys commands, at hospital admission; F41.9 Anxiety disorder, unspecified; F32.9 Major depressive disorder, single episode, unspecified; Z79.02 Long term (current) use of antithrombotics/antiplatelets; Z90.710 Acquired absence of both cervix and uterus; Z87.440 Personal history of urinary (tract) infections; W18.30XA Fall on same level, unspecified, initial encounter
CPT/HCPCS: 36415; 51701; 70450; 72125; 74176; 80053; 81000; 85025; 85610; 85730

== ENCOUNTER 2018-10-02 18:12 | Emergency (ER) | payer MEDICARE, MEDICAID ==
[~2018-10-02] VITALS: Ht 160 cm; Wt 72.3 kg
[~2018-10-02 18:12] MED LIST changes: -CITA20TA7 PO; +CITA20TA9 PO; -LOSA50TA36 PO; +LOSA50TA7 PO
[2018-10-02] MEDS ORDERED: TETANUS,DIPTH,PERTUSS P/F (BOOSTRIX) 0.5 ML VIAL IM STA (18:18)
--- OUTSIDE RECORDS SUMMARY | 2018-10-02 18:22 | XMS REPORT | CCD ---
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 Name Role Phone PP Unavailable CCM Unavailable Summary Purpose Interface Exchange Insurance Providers Payer name Policy type / Coverage type Covered constitution party ID Effective Begin Date Effective End Date HU[employer] CLAIMS Commercial Insurance [id number] Unknown Family history Daughter Diagnosis Age At [...] Codes Description Effective Dates Living arrangements Unknown Care Home [facility] 12/21/2016 Marital status Unknown 03/21/2012 Number of children Unknown 5 03/21/[address]: 168249939 Nonsmoker 03/21/[address]: 412959476 Never drinks alcohol 03/21/2012 Allergies, Adverse Reactions, Alerts Substance Reaction Codes Entered Date Inactivated Date Status * NO KNOWN DRUG ALLERGIES Unknown 03/21/2012 No Inactive Date Active Past Medical History Illness Codes Condition Status Onset Date Resolved Date Dementia with Lewy bodies ICD-9: 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 ICD-10: G31.83 Active 04/16/2014 Unknown Essential (primary) hypertension ICD-9: 401.1 ICD-10: I10 Active 04/25/2017 Unknown Mixed hyperlipidemia ICD-9: 272.4 ICD-10: E78.2 Active 08/13/2014 Unknown Mixed hyperlipidemia ICD-9: 272.2 ICD-10: E78.2 Active 09/21/2016 Unknown 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 ICD-10: F28 Active 04/25/2017 Unknown Major depressive disorder, recurrent, 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 ICD-10: F33.0 Active 06/21/2016 Unknown Pseudobulbar affect ICD-9: 310.81 ICD-10: F48.2 Active 03/22/2017 Unknown Encounter for immunization ICD-9: V04.81 ICD-10: Z23 Active 07/25/2012 Unknown Other hallucinations ICD-9: 780.1 ICD-10: R44.2 [...] Problems Condition Codes Effective Dates Condition Status Dementia with Lewy bodies ICD-9: 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 ICD-10: G31.83 04/16/2014 Active Essential (primary) hypertension ICD-9: 401.1 ICD-10: I10 04/25/2017 Active Mixed hyperlipidemia ICD-9: 272.4 ICD-10: E78.2 08/13/2014 Active Mixed hyperlipidemia ICD-9: 272.2 ICD-10: E78.2 09/21/2016 Active 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 ICD-10: F28 04/25/2017 Active Major depressive disorder, recurrent, 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 ICD-10: F33.0 06/21/2016 Active Pseudobulbar affect ICD-9: 310.81 ICD-10: F48.2 03/22/2017 Active Encounter for immunization ICD-9: V04.81 ICD-10: Z23 07/25/2012 Active Other hallucinations ICD-9: 780.1 ICD-10: R44.2 [...] Start Date Stop Date Status Fill Instructions Depakote ER 250 mg tablet,extended release RxNorm: 0840093 TAKE 1 TABLET BY MOUTH TWICE DAILY 08/14/2018 03/11/2019 Active Generic For:DEPAKOTE ER 250MG 08/14/2018 8:56:28 AM Vitamin B-12 500 mcg tablet RxNorm: 299813 1 Tablet(s) PO daily except [place] and nour 07/24/2018 No Stop Date Active Exelon Patch 9.5 mg/24 hr transdermal RxNorm: 208530 APPLY ONE (1) PATCH ONCE DAILY. 07/04/2018 10/31/2018 Active 07/04/2018 3:15:29 PM Depakote ER 250 mg tablet,extended release RxNorm: 2373738 1 Tablet(s) PO BID 06/18/2018 08/13/2018 Inactive Namenda 10 mg tablet RxNorm: 466636 TAKE 1 TABLET BY MOUTH TWICE DAILY 06/13/2018 12/09/2018 Active Generic For:NAMENDA 10MG TAB 06/13/2018 9:01:14 AM losartan 50 mg tablet RxNorm: 698371 TAKE 1 TABLET BY MOUTH EVERY DAY 06/03/2018 12/29/2018 Active Generic For:*COZAAR 50MG 06/03/2018 9:11:33 AM Flonase 50 mcg/actuation nasal spray,suspension RxNorm: 3149789 INSTILL ONE SPRAY IN EACH NOSTRIL TWICE DAILY (MORNING AND EVENING) 05/28/2018 08/25/2018 Inactive Generic For:FLONASE SPR 0.05% 05/28/2018 2:26:52 PM Exelon Patch 9.5 mg/24 hr transdermal RxNorm: 014810 APPLY ONE (1) PATCH ONCE DAILY. 03/12/2018 07/03/2018 Inactive 03/12/2018 2:27:46 PM Celexa 20 mg tablet RxNorm: 613330 1/2 Tablet(s) PO daily 08/26/2018 Inactive Generic For:CELEXA 20MG 12/17/2017 3:01:05 PM Depakote ER 250 mg tablet,extended release RxNorm: 3126855 1 Tablet(s) PO daily 02/28/2018 06/17/2018 Inactive Flonase 50 mcg/actuation nasal spray,suspension RxNorm: 7962080 INSTILL ONE SPRAY IN EACH NOSTRIL TWICE DAILY (MORNING AND EVENING) 01/09/2018 04/08/2018 Inactive Generic For:FLONASE SPR 0.05% 01/07/2018 2:08:18 PM Keflex 500 mg capsule RxNorm: 783454 1 Capsule(s) PO TID 201701/06/2018 Inactive probiotic BID while on antibiotic Celexa 20 mg tablet RxNorm: 280275 TAKE 1 TABLET BY MOUTH EVERY DAY 12/17/2017 02/27/2018 Inactive Generic For:CELEXA 20MG 12/17/2017 3:01:05 PM Namenda 10 mg tablet RxNorm: 212782 TAKE 1 TABLET BY MOUTH TWICE DAILY 12/07/2017 06/04/2018 Inactive Generic For:NAMENDA 10MG TAB 12/07/2017 1:43:23 PM clopidogrel 75 mg tablet RxNorm: 144023 TAKE 1 TABLET BY MOUTH EVERY DAY 11/28/2017 06/05/2018 Inactive Generic For:*PLAVIX 75MG 11/28/2017 9:43:44 AM Ativan 0.5 mg tablet RxNorm: 599073 1 Tablet(s) PO Q6 as needed and 1/2 Tablet PO Q2 as needed 11/22/2017 No Stop Date Active Exelon Patch 9.5 mg/24 hr transdermal RxNorm: 222820 APPLY ONE (1) PATCH ONCE DAILY. 11/12/2017 03/11/2018 Inactive losartan 50 mg tablet RxNorm: 828932 TAKE 1 TABLET BY MOUTH EVERY DAY 11/05/2017 06/02/2018 Inactive Generic For:*COZAAR 50MG 11/02/2017 2:22:04 PM Exelon Patch 9.5 mg/24 hr transdermal RxNorm: 366768 APPLY ONE (1) PATCH ONCE DAILY. 10/19/2017 11/11/2017 Inactive Depakote 500 mg tablet,delayed release RxNorm: 2432487 1 Tablet(s) PO daily 10/15/2017 02/27/2018 Inactive Protonix 20 mg tablet,delayed release RxNorm: 081926 TAKE 1 TABLET BY MOUTH DAILY 08/06/2017 03/03/2018 Inactive Generic For:*PROTONIX 20MG 08/06/2017 2:35:53 PM Ativan 0.5 mg tablet RxNorm: 399644 1/2 Tablet(s) PO Q6 PRN as needed 1/2 po q 2 pm 08/02/2017 09/30/2017 Inactive Depakote 500 mg tablet,delayed release RxNorm: 5232467 1 Tablet(s) PO daily 06/22/2017 10/14/2017 Inactive Exelon Patch 9.5 mg/24 hr transdermal RxNorm: 587789 APPLY ONE (1) PATCH ONCE DAILY. 05/14/2017 10/10/2017 Inactive Protonix 20 mg tablet,delayed release RxNorm: 440073 1 Tablet(s) PO daily 05/08/2017 08/05/2017 Inactive Risperdal 0.25 mg tablet RxNorm: 116506 Tablet(s) UD .25 in am and .5 in hs and .25 prn for psychosis/hallucinations 04/26/2017 05/16/2017 Inactive Nuedexta 20 mg-10 mg capsule RxNorm: 5705612 1 Capsule(s) PO daily x 7 days then go to one cap BID 03/22/2017 04/24/2017 Inactive Ativan 0.5 mg tablet RxNorm: 472936 1/2 Tablet(s) PO Q6 PRN as needed 1/2 po q 2 pm 03/21/2017 08/01/2017 Inactive Keflex 500 mg capsule RxNorm: 971472 1 Capsule(s) PO TID 201603/05/2017 Inactive Keflex 500 mg capsule RxNorm: 598574 1 Capsule(s) PO TID 201603/15/2017 Inactive Ativan 0.5 mg tablet RxNorm: 971167 1/2 Tablet(s) PO Q6 PRN as needed 1/2 po q 2 pm 02/28/2017 03/20/2017 Inactive Protonix 20 mg tablet,delayed release RxNorm: 331914 1 Tablet(s) PO daily 02/07/2017 05/07/2017 Inactive Protonix 20 mg tablet,delayed release RxNorm: 511116 1 Tablet(s) PO daily 02/07/2017 02/06/2017 Inactive amoxicillin 500 mg capsule RxNorm: 784543 1 Capsule(s) PO TID 01/11/2017 01/10/2017 Inactive Patient at [facility] amoxicillin 500 mg capsule RxNorm: 798276 1 Capsule(s) PO TID 01/11/2017 01/17/2017 Inactive Patient at [facility] Exelon Patch 9.5 mg/24 hr transdermal RxNorm: 815016 APPLY ONE (1) PATCH ONCE DAILY. 12/14/2016 05/12/2017 Inactive Flonase 50 mcg/actuation nasal spray,suspension RxNorm: 6001344 1 [place] each nostril NASAL BID 10/30/2016 11/28/2016 Inactive 2 spray each nostril Namenda 10 mg tablet RxNorm: 164478 1 Tablet(s) PO BID 201609/04/2017 Inactive Risperdal 0.25 mg tablet RxNorm: 745065 1 Tablet(s) PO QHS 01/22/2017 Inactive trazodone 50 mg tablet RxNorm: 810905 1.5 Tablet(s) PO QHS 03/29/2017 Inactive Exelon Patch 9.5 mg/24 hr transdermal RxNorm: 315897 APPLY ONE (1) PATCH ONCE DAILY. 07/18/2016 12/13/2016 Inactive trazodone 50 mg tablet RxNorm: 743786 1.5 Tablet(s) PO QHS 09/24/2016 Inactive Exelon Patch 9.5 mg/24 hr transdermal RxNorm: 483649 APPLY ONE (1) PATCH ONCE DAILY. 05/15/2016 05/14/2016 Inactive Exelon Patch 9.5 mg/24 hr transdermal RxNorm: 063805 APPLY ONE (1) PATCH ONCE DAILY. 05/15/2016 10/18/2017 Inactive Risperdal 0.25 mg tablet RxNorm: 640371 1 Tablet(s) PO QHS 11/201509/24/2016 Inactive Exelon Patch 9.5 mg/24 hr transdermal RxNorm: 912062 APPLY ONE (1) PATCH ONCE DAILY. 2016 No Stop Date Active Exelon Patch 9.5 mg/24 hr transdermal RxNorm: 462009 APPLY ONE (1) PATCH ONCE DAILY. 2016 02/21/2016 Inactive trazodone 50 mg tablet RxNorm: 712718 1.5 Tablet(s) PO QHS 01/201605/28/2016 Inactive simvastatin 20 mg tablet RxNorm: 429151 1 Tablet(s) PO daily 11/21/2017 Inactive clopidogrel 75 mg tablet RxNorm: 981955 1 Tablet(s) PO daily 01/31/2017 Inactive Celexa 20 mg tablet RxNorm: 571703 1 Tablet(s) PO daily 201501/31/2017 Inactive [place] Instant Breakfast Juice Drink oral liquid RxNorm: PO QHS after meals 02/02/2016 12/20/2016 Inactive Flonase 50 mcg/actuation nasal spray,suspension RxNorm: 8527518 1 [place] each nostril NASAL BID 12/02/2015 03/30/2016 Inactive 2 spray each nostril Namenda 10 mg tablet RxNorm: 536077 1 Tablet(s) PO BID 201510/06/2016 Inactive Risperdal 0.25 mg tablet RxNorm: 378560 1 Tablet(s) PO QHS 02/29/2016 Inactive Exelon Patch 9.5 mg/24 hr transdermal RxNorm: 511838 1 Patch TD daily 1 Patch TD daily 07/23/2015 01/18/2016 Inactive Exelon Patch 9.5 mg/24 hr transdermal RxNorm: 783919 1 Patch TD daily 07/20/2015 07/22/2015 Inactive Celexa 20 mg tablet RxNorm: 148576 1 Tablet(s) PO daily 201402/06/2016 Inactive Flonase 50 mcg/actuation nasal spray,suspension RxNorm: 044652 1 [place] each nostril NASAL BID 06/04/2015 10/01/2015 Inactive 2 spray each nostril Risperdal 0.25 mg tablet RxNorm: 387066 1 Tablet(s) PO QHS 08/01/2015 Inactive Exelon Patch 9.5 mg/24 hr transdermal RxNorm: 745027 1 Patch TD daily 04/28/2015 07/19/2015 Inactive Vitamin D3 2,000 unit capsule RxNorm: 880777 1 Capsule(s) PO daily 02/10/2015 03/15/2016 Inactive Calcium 600 + D(3) 600 mg (1,500 mg)-400 unit tablet RxNorm: 904874 1 Tablet(s) PO daily 02/09/2015 No Stop Date Active Celexa 20 mg tablet RxNorm: 964690 1 Tablet(s) PO daily 201412/09/2014 Inactive Celexa 20 mg tablet RxNorm: 173049 1 Tablet(s) PO daily 201407/07/2015 Inactive Flonase 50 mcg/actuation nasal spray,suspension RxNorm: 649183 1 [place] each nostril NASAL BID 11/27/2014 03/26/2015 Inactive 2 spray each nostril Casi Allergy 180 mg tablet RxNorm: 308089 1 Tablet(s) PO daily 11/19/2014 12/18/2014 Inactive Marinol 2.5 mg capsule RxNorm: 363098 1 Capsule(s) PO TID 11/1603/15/2015 Inactive [SAVINGS FOR UNINSURED PATIENTS -- BIN:[id number], PCN: [id number], Group: [id number], ID# [id number], Process claim through [employer], for questions: . THIS IS NOT INSURANCE.] Namenda 10 mg tablet RxNorm: 880739 1 Tablet(s) PO BID 201402/08/2015 Inactive Marinol 2.5 mg capsule RxNorm: 626738 1 Capsule(s) PO TID 10/1211/10/2014 Inactive Namenda 10 mg tablet RxNorm: 412724 1 Tablet(s) PO BID 201410/11/2014 Inactive Flonase 50 mcg/actuation nasal spray,suspension RxNorm: 569504 2 [place] NASAL BID 08/17/2014 11/26/2014 Inactive 2 spray each nostril Exelon Patch 9.5 mg/24 hr transdermal RxNorm: 691561 1 Patch TD daily 07/10/2014 10/07/2014 Inactive Risperdal 0.25 mg tablet RxNorm: 775800 1 Tablet(s) PO QHS 05/201405/03/2015 Inactive Namenda XR 14 mg capsule sprinkle,ER 24hr RxNorm: 414540 1 Capsule(s) PO daily 04/13/2014 10/11/2014 Inactive acyclovir 800 mg tablet RxNorm: 048393 1 Tablet(s) PO TID 03/1203/18/2014 Inactive nystatin 100,000 unit/gram topical powder RxNorm: 452117 1 Gram(s) TOP QID apply to tissue under breasts and if needed other folded skin ears with evidence of yeast infection 03/12/2014 03/21/2014 Inactive simvastatin 20 mg tablet RxNorm: 674755 1 Tablet(s) PO daily 02/15/2014 Inactive trazodone 50 mg tablet RxNorm: 631311 1 1/2 Tablet(s) PO daily 02/16/2014 02/15/2014 Inactive trazodone 50 mg tablet RxNorm: 647347 1 1/2 Tablet(s) PO daily 02/16/2014 03/17/2014 Inactive clopidogrel 75 mg tablet RxNorm: 125778 1 Tablet(s) PO daily 02/10/2015 Inactive Exelon 4.6 mg/24 hour transdermal 24 hour patch RxNorm: 856454 1 TD daily 02/16/2014 03/17/2014 Inactive simvastatin 20 mg tablet RxNorm: 300151 1 Tablet(s) PO daily 06/15/2014 Inactive Vitamin B-12 2,500 mcg sublingual tablet RxNorm: 148710 1 Tablet(s) SL daily 01/22/2014 No Stop Date Active Ativan 0.5 mg tablet RxNorm: 032988 1/2 Tablet(s) PO Q6 PRN 1/2 po q 2 pm and 1 po q 6 hours prn anxiety 10/16/20132013 Inactive Cipro 500 mg tablet RxNorm: 134314 1 Tablet(s) PO BID correction 08/04/2013 08/08/2013 Inactive Cipro 500 mg tablet RxNorm: 132976 2 Tablet(s) PO BID 201208/03/2013 Inactive Cipro 500 mg tablet RxNorm: 239052 2 Tablet(s) PO BID 201207/31/2013 Inactive Influenza Virus Vaccine 0.5 mL RxNorm: IM 07/07/2013 07/07/2013 Inactive clopidogrel 75 mg tablet RxNorm: 930179 1 Tablet(s) PO daily 02/15/2014 Inactive risperidone 0.5 mg tablet RxNorm: 538668 1 Tablet(s) PO TID 01/21/2014 Inactive atorvastatin 20 mg tablet RxNorm: 855768 1 Tablet(s) PO QPM 01/21/2014 Inactive TAKE ONE TABLET BY MOUTH EVERY DAY risperidone 0.5 mg tablet RxNorm: 909518 1 Tablet(s) PO TID 02/201306/24/2013 Inactive Risperdal 0.25 mg tablet RxNorm: 584063 Tablet(s) PO TAKE 1 TABLET AT NOON AND TAKE 1 TABLET AT NIGHT IF NEEDED FOR HALLUCINATIONS 201206/11/2013 Inactive clopidogrel 75 mg tablet RxNorm: 731128 1 Tablet(s) PO daily 06/24/2013 Inactive Risperdal 0.25 mg tablet RxNorm: 923038 1 Tablet(s) PO noon one at noon and one in night if needed for hallucinations. 09/06/2012 01/01/2013 Inactive atorvastatin 20 mg tablet RxNorm: 710596 1 Tablet(s) PO QPM 06/24/2013 Inactive TAKE ONE TABLET BY MOUTH EVERY DAY risperidone 0.5 mg tablet RxNorm: 173199 1 Tablet(s) PO BID 06/11/2013 Inactive atorvastatin 20 mg tablet RxNorm: 797254 Tablet(s) PO 201109/05/2012 Inactive TAKE ONE TABLET BY MOUTH EVERY DAY nystatin 100,000 unit/g Topical Powder RxNorm: 401876 1 Gram(s) TOP BID 08/08/2012 08/27/2012 Inactive atorvastatin 20 mg tablet RxNorm: 388933 Tablet(s) PO 201108/11/2012 Inactive TAKE ONE TABLET BY MOUTH EVERY DAY risperidone 0.5 mg tablet RxNorm: 874425 1 Tablet(s) PO BID 03/201207/12/2012 Inactive Risperdal 0.25 mg tablet RxNorm: 642922 1 Tablet(s) PO noon one at noon and one in night if needed for hallucinations. 06/13/2012 09/05/2012 Inactive clopidogrel 75 mg tablet RxNorm: 887124 1 Tablet(s) PO daily 09/05/2012 Inactive atorvastatin 20 mg tablet RxNorm: 260788 1 Tablet(s) PO daily 05/10/2012 06/08/2012 Inactive Cipro 500 mg Tab RxNorm: 312511 1 Tablet(s) PO BID 201104/11/2012 Inactive Risperdal 0.25 mg tablet RxNorm: 647960 1 Tablet(s) PO noon one at noon and one in night if needed for hallucinations. 03/22/2012 06/12/2012 Inactive Risperdal 0.25 mg Tab RxNorm: 673698 1 Tablet(s) PO noon one at noon and one in night if needed for hallucinations. 03/21/2012 03/21/2012 Inactive Vitamin D3 2,000 unit tablet RxNorm: 068620 1 Tablet(s) PO daily No Start Date Active Protonix 20 mg tablet,delayed release RxNorm: 848087 1 Tablet(s) PO daily No Start Date Active famotidine 20 mg tablet RxNorm: 625883 1 Tablet(s) PO QHS No Start Date Active melatonin 3 mg tablet RxNorm: 152231 2 Tablet(s) PO QHS No Start Date Active Tylenol 500 mg RxNorm : 1 -2 Tablet(s) PO Q6 as needed pain or fever No Start Date Active Vitamin D3 2,000 unit capsule RxNorm: 857317 1 Capsule(s) PO daily No Start Date 02/09/2015 Inactive trazodone 50 mg tablet RxNorm: 607454 1.5 Tablet(s) PO QHS No Start Date 02/08/2016 Inactive Trazadone 25 mg RxNorm : 3 PO QHS No Start Date 02/15/2014 Inactive [place] Instant Breakfast Juice Drink oral liquid RxNorm: PO TID after meals No Start Date 02/01/2016 Inactive Vitamin B-12 2,500 mcg sublingual tablet RxNorm: 172324 1 Tablet(s) SL daily No Start Date 01/21/2014 Inactive Tums Calcium for Life Bone 300 mg (750 mg) chewable tablet RxNorm: 969503 2 Tablet (s) PO daily No Start Date 02/12/2013 Inactive calcium 300 mg chewable tablet RxNorm: 1 Tablet(s) PO daily No Start Date 12/03/2015 Inactive with vitamin d Marinol 2.5 mg capsule RxNorm: 205421 1 Capsule(s) PO ac tid No Start Date 03/11/2014 Inactive Namenda XR 14 mg capsule sprinkle,ER 24hr RxNorm: 417626 1 Capsule(s) PO daily No Start Date 04/12/2014 Inactive clopidogrel 75 mg tablet RxNorm: 568321 1 Tablet(s) PO daily No Start Date 05/09/2012 Inactive Namenda 5 mg Tab RxNorm: 321064 1 Tablet(s) PO BID No Start Date 04/12/2014 Inactive Depakote 500 mg tablet,delayed release RxNorm: 4599521 1 Tablet(s) PO daily No Start Date 06/21/2017 Inactive Zocor 20 mg tablet RxNorm: 515474 1 Tablet(s) PO daily No Start Date 08/12/2014 Inactive losartan 50 mg tablet RxNorm: 078197 1 Tablet(s) PO daily No Start Date 11/04/2017 Inactive Vitamin B-12 500 mcg tablet RxNorm: 830438 1 Tablet(s) PO daily No Start Date 07/23/2018 Inactive Depakote ER 250 mg tablet,extended release RxNorm: 2201093 1 Tablet(s) PO BID No Start Date 12/31/2013 Inactive Calcium 600 + D(3) oral RxNorm: 528315 oral No Start Date 02/08/2015 Inactive risperidone 0.5 mg tablet RxNorm: 361515 1 Tablet(s) PO BID No Start Date 06/12/2012 Inactive lorazepam 0.5 mg tablet RxNorm: 319906 1 Tablet(s) PO daily No Start Date 11/21/2017 Inactive atorvastatin 20 mg tablet RxNorm: 779232 1 Tablet(s) PO daily No Start Date 05/09/2012 Inactive Flonase 50 mcg/actuation nasal spray,suspension RxNorm: 959308 2 [place] NASAL BID No Start Date 08/16/2014 Inactive 2 spray each nostril Exelon 4.6 mg/24 hour transdermal 24 hour patch RxNorm: 330707 1 TD daily No Start Date 02/15/2014 [...] 03/18/2012 completed Assessments Condition Codes Effective Dates Dementia with Lewy bodies ICD-10: G31.83 ICD-9: 331.82 08/15/2018 Essential (primary) hypertension ICD-10: I10 ICD-9: 401.1 08/15/2018 Mixed hyperlipidemia ICD-10: E78.2 ICD-9: 272.4 08/15/2018 Mixed hyperlipidemia ICD-10: E78.2 ICD-9: 272.2 06/06/2018 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 ICD-9: 298.8 06/06/2018 Major depressive disorder, recurrent, 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 ICD-9: 296.31 08/16/2017 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 ICD-9: 310.81 03/22/2017 Encounter for immunization ICD-10: Z23 ICD-9: V04.81 09/21/2016 Other hallucinations ICD-10: R44.2 ICD-9: 780.1 12/16/2015 [...] For Visit Effective Dates Notes memory loss 08/15/2018 memory loss 06/06/2018 memory loss 02/28/2018 memory loss 11/22/2017 memory loss 08/16/2017 memory [...] Item Item Code Result Date Valproic Acid Gya444 VALPROIC 29.0 ug/ml 09/27/2018 B12 Rih213 B12 920.00 pg/ml 07/23/2018 Valproic Acid Vae760 VALPROIC 48.0 ug/ml 07/03/2018 Hepatic Nxq289 ALBUMIN 3.7 g/dL 07/03/2018 Hepatic Wgh084 TPRO 6.3 g/dL 07/03/2018 Hepatic Ksj897 GLOB 2.6 g/dL 07/03/2018 Hepatic Lmi233 A/G Ratio 1.4 Ratio 07/03/2018 Hepatic Vdd755 ALK PHOS 67 U/L 07/03/2018 Hepatic Rzv159 ALT(SGPT) 5 U/L 07/03/2018 Hepatic Jni337 AST(SGOT) 13 U/L 07/03/2018 Hepatic Gvq695 BILI T 0.4 mg/dL 07/03/2018 Hepatic Znw706 BILI D 0.1 mg/dL 07/03/2018 Hepatic Rxz084 BILI I 0.3 mg/dL 07/03/2018 Urinalysis Ord28 U-Color Yellow 02/06/2018 Urinalysis Ord28 U-Clarity Slightly Cloudy 02/06/2018 Urinalysis Ord28 U-Gluc Negative 02/06/2018 Urinalysis Ord28 U-Bili Negative 02/06/2018 Urinalysis Ord28 U-Ketone Negative 02/06/2018 Urinalysis Ord28 U-SG 1.015 02/06/2018 Urinalysis Ord28 U-Blood Negative 02/06/2018 Urinalysis Ord28 U-pH 7.0 02/06/2018 Urinalysis Ord28 U-Protein Negative 02/06/2018 Urinalysis Ord28 U-Urobilin 0.2 E.U./dL E.U./dL 02/06/2018 Urinalysis Ord28 U-Nitrites Negative 02/06/2018 Urinalysis Ord28 U-Leuk Negative 02/06/2018 Urinalysis Ord28 U-Bact TRACE 02/06/2018 Urinalysis Ord28 U-Squamous Epi 5-10 per/HPF 02/06/2018 Urinalysis Ord28 U-Crystal None per/HPF 02/06/2018 Urinalysis Ord28 U-Mucus None 02/06/2018 Urinalysis Ord28 U-Renal tubular epi None 02/06/2018 Urinalysis Ord28 U-RBC None per/HPF 02/06/2018 Urinalysis Ord28 U-Transitional epi None per/HPF 02/06/2018 Urinalysis Ord28 U-WBC 0-2 per/HPF 02/06/2018 Urinalysis Ord28 U-Cast None per/HPF 02/06/2018 Urinalysis Ord28 U-VOL VOLUME SUFFICIENT (10mL) 02/06/2018 Urinalysis Ord28 U-Yeast NEGATIVE 02/06/2018 Urinalysis Ord28 U-Com Urine saved if culture needed (specimen acceptable for 48 hours from collection if refrigerated) 02/06/2018 Cbc With Differential Ord2 WBC 6.53 K/ul 02/04/2018 Cbc With Differential Ord2 RBC 4.14 M/ul 02/04/2018 Cbc With Differential Ord2 HGB 12.1 g/dl 02/04/2018 Cbc With Differential Ord2 Neut% 58.4 % 02/04/2018 Cbc With Differential Ord2 HCT 38.5 % 02/04/2018 Cbc With Differential Ord2 MCV 93.0 fl 02/04/2018 Cbc With Differential Ord2 Lymph% 28.3 % 02/04/2018 Cbc With Differential Ord2 [place]% 10.1 % 02/04/2018 Cbc With Differential Ord2 MCH 29.2 pg 02/04/2018 Cbc With Differential Ord2 Eos% 2.9 % 02/04/2018 Cbc With Differential Ord2 MCHC 31.4 pg 02/04/2018 Cbc With Differential Ord2 PLT 295 K/ul 02/04/2018 Cbc With Differential Ord2 Baso% 0.3 % 02/04/2018 Cbc With Differential Ord2 Neut ABS# 3.81 K/ul 02/04/2018 Cbc With Differential Ord2 RDW 14.5 % 02/04/2018 Cbc With Differential Ord2 Lymph ABS# 1.85 K/ul 02/04/2018 Cbc With Differential Ord2 [place] ABS# 0.7 K/ul 02/04/2018 Cbc With Differential Ord2 Eos ABS# 0.2 K/ul 02/04/2018 Cbc With Differential Ord2 Baso ABS# 0.0 K/ul 02/04/2018 Lipid Ord30 CHOL 161 mg/dL 02/04/2018 Lipid Ord30 HDL 47.0 mg/dl 02/04/2018 Lipid Ord30 TRIG 109 mg/dL 02/04/2018 Lipid Ord30 LDL 92 mg/dL 02/04/2018 Lipid Ord30 C/HDL 3.4 Ratio 02/04/2018 Comp Metabolic Krh548 NA 139 mEq/L 02/04/2018 Comp Metabolic Epq562 K 4.3 mEq/L 02/04/2018 Comp Metabolic Gym739 CL 103 mEq/L 02/04/2018 Comp Metabolic Jps035 CO2 29.0 mEq/L 02/04/2018 Comp Metabolic Gsm262 ANION GAP 11 02/04/2018 Comp Metabolic Esm388 GLUCOSE 84 mg/dL 02/04/2018 Comp Metabolic Efh807 Creat 0.5 mg/dL 02/04/2018 Comp Metabolic Pmk691 eGFR 116 ml/min/1.73m2 02/04/2018 Comp Metabolic Ewi805 BUN 7 mg/dL 02/04/2018 Comp Metabolic Xlg093 B/C Ratio 13.2 Ratio 02/04/2018 Comp Metabolic Hnh810 CALCIUM 8.4 mg/dL 02/04/2018 Comp Metabolic Gtx418 ALK PHOS 110 U/L 02/04/2018 Comp Metabolic Hpi201 AST(SGOT) 10 U/L 02/04/2018 Comp Metabolic Cpx431 ALT(SGPT) 7 U/L 02/04/2018 Comp Metabolic Zyo195 BILI T 0.3 mg/dL 02/04/2018 Comp Metabolic Cse932 ALBUMIN 3.4 g/dL 02/04/2018 Comp Metabolic Nxf860 TPRO 5.9 g/dL 02/04/2018 Comp Metabolic Opk376 GLOB 2.5 g/dL 02/04/2018 Comp Metabolic Enm557 A/G Ratio 1.3 Ratio 02/04/2018 Comp Metabolic Egk119 Osmo 275 mOsmo 02/04/2018 Valproic Acid Qac401 VALPROIC 45.0 ug/ml 02/04/2018 Tsh Ord6 TSH (3rd IS) 2.26 uIU/mL 02/04/2018 Valproic Acid Hwt972 VALPROIC 40.0 ug/ml 01/17/2018 Hepatic Knq862 ALBUMIN 3.7 g/dL 01/17/2018 Hepatic Xnp161 TPRO 6.5 g/dL 01/17/2018 Hepatic Rac779 GLOB 2.8 g/dL 01/17/2018 Hepatic Dio775 A/G Ratio 1.4 Ratio 01/17/2018 Hepatic Ooi143 ALK PHOS 137 U/L 01/17/2018 Hepatic Apu810 ALT(SGPT) 7 U/L 01/17/2018 Hepatic Luc026 AST(SGOT) 11 U/L 01/17/2018 Hepatic Ywn174 BILI T 0.4 mg/dL 01/17/2018 Hepatic Fuf943 BILI D 0.1 mg/dL 01/17/2018 Hepatic Adk776 BILI I 0.3 mg/dL 01/17/2018 Valproic Acid Pjj175 VALPROIC 38.0 ug/ml 01/03/2018 Cbc With Differential Ord2 WBC 7.46 K/ul 01/03/2018 Cbc With Differential Ord2 RBC 3.80 M/ul 01/03/2018 Cbc With Differential Ord2 HGB 11.1 g/dl 01/03/2018 Cbc With Differential Ord2 Neut% 55.4 % 01/03/2018 Cbc With Differential Ord2 HCT 35.2 % 01/03/2018 Cbc With Differential Ord2 MCV 92.6 fl 01/03/2018 Cbc With Differential Ord2 Lymph% 26.0 % 01/03/2018 Cbc With Differential Ord2 MCH 29.2 pg 01/03/2018 Cbc With Differential Ord2 [place]% 13.9 % 01/03/2018 Cbc With Differential Ord2 Eos% 4.4 % 01/03/2018 Cbc With Differential Ord2 MCHC 31.5 pg 01/03/2018 Cbc With Differential Ord2 Baso% 0.3 % 01/03/2018 Cbc With Differential Ord2 PLT 226 K/ul 01/03/2018 Cbc With Differential Ord2 RDW 14.7 % 01/03/2018 Cbc With Differential Ord2 Neut ABS# 4.13 K/ul 01/03/2018 Cbc With Differential Ord2 Lymph ABS# 1.94 K/ul 01/03/2018 Cbc With Differential Ord2 [place] ABS# 1.0 K/ul 01/03/2018 Cbc With Differential Ord2 Eos ABS# 0.3 K/ul 01/03/2018 Cbc With Differential Ord2 Baso ABS# 0.0 K/ul 01/03/2018 Metabolic Ord15 NA 139 mEq/L 01/03/2018 Metabolic Ord15 K 4.1 mEq/L 01/03/2018 Metabolic Ord15 CL 104 mEq/L 01/03/2018 Metabolic Ord15 CO2 29.0 mEq/L 01/03/2018 Metabolic Ord15 GLUCOSE 85 mg/dL 01/03/2018 Metabolic Ord15 BUN 10 mg/dL 01/03/2018 Metabolic Ord15 Creat 0.6 mg/dL 01/03/2018 Metabolic Ord15 B/C Ratio 15.6 Ratio 01/03/2018 Metabolic Ord15 eGFR 94 ml/min/1.73m2 01/03/2018 Metabolic Ord15 Osmo 276 mOsmo 01/03/2018 Metabolic Ord15 ANION GAP 10 01/03/2018 Metabolic Ord15 CALCIUM 8.2 mg/dL 01/03/2018 Valproic Acid Byb254 VALPROIC 39.0 ug/ml 01/02/2018 Comp Metabolic Ibg235 NA 136 mEq/L 01/02/2018 Comp Metabolic Iaa937 K 4.1 mEq/L 01/02/2018 Comp Metabolic Mwv541 CL 103 mEq/L 01/02/2018 Comp Metabolic Pdy549 CO2 24.0 mEq/L 01/02/2018 Comp Metabolic Err404 ANION GAP 13 01/02/2018 Comp Metabolic Bqu464 GLUCOSE 135 mg/dL 01/02/2018 Comp Metabolic Ois973 Creat 0.6 mg/dL 01/02/2018 Comp Metabolic Bbz084 eGFR 99 ml/min/1.73m2 01/02/2018 Comp Metabolic Hoe882 BUN 7 mg/dL 01/02/2018 Comp Metabolic Lga526 B/C Ratio 11.5 Ratio 01/02/2018 Comp Metabolic Gmj222 CALCIUM 8.8 mg/dL 01/02/2018 Comp Metabolic Tfa750 ALK PHOS 75 U/L 01/02/2018 Comp Metabolic Zfp748 AST(SGOT) 13 U/L 01/02/2018 Comp Metabolic Xva532 ALT(SGPT) 7 U/L 01/02/2018 Comp Metabolic Lim038 BILI T 0.2 mg/dL 01/02/2018 Comp Metabolic Rrp382 ALBUMIN 3.9 g/dL 01/02/2018 Comp Metabolic Bme449 TPRO 6.5 g/dL 01/02/2018 Comp Metabolic Paw768 GLOB 2.6 g/dL 01/02/2018 Comp Metabolic Uin604 A/G Ratio 1.5 Ratio 01/02/2018 Comp Metabolic Cac150 Osmo 272 mOsmo 01/02/2018 Cbc With Differential Ord2 WBC 9.28 K/ul 01/02/2018 Cbc With Differential Ord2 RBC 4.14 M/ul 01/02/2018 Cbc With Differential Ord2 HGB 12.3 g/dl 01/02/2018 Cbc With Differential Ord2 Neut% 74.1 % 01/02/2018 Cbc With Differential Ord2 HCT 38.0 % 01/02/2018 Cbc With Differential Ord2 Lymph% 13.4 % 01/02/2018 Cbc With Differential Ord2 MCV 91.8 fl 01/02/2018 Cbc With Differential Ord2 MCH 29.7 pg 01/02/2018 Cbc With Differential Ord2 [place]% 11.5 % 01/02/2018 Cbc With Differential Ord2 Eos% 0.9 % 01/02/2018 Cbc With Differential Ord2 MCHC 32.4 pg 01/02/2018 Cbc With Differential Ord2 PLT 275 K/ul 01/02/2018 Cbc With Differential Ord2 Baso% 0.1 % 01/02/2018 Cbc With Differential Ord2 Neut ABS# 6.88 K/ul 01/02/2018 Cbc With Differential Ord2 RDW 14.4 % 01/02/2018 Cbc With Differential Ord2 Lymph ABS# 1.24 K/ul 01/02/2018 Cbc With Differential Ord2 [place] ABS# 1.1 K/ul 01/02/2018 Cbc With Differential Ord2 Eos ABS# 0.1 K/ul 01/02/2018 Cbc With Differential Ord2 Baso ABS# 0.0 K/ul 01/02/2018 Urine Culture Ucult Preliminary NO Growth Day 1 12/31/2017 Urine Culture Ucult Complete NO Growth Day 2 12/31/2017 Urinalysis Ord28 U-Color Yellow 12/28/2017 Urinalysis Ord28 U-Clarity Cloudy 12/28/2017 Urinalysis Ord28 U-Gluc Negative 12/28/2017 Urinalysis Ord28 U-Bili Negative 12/28/2017 Urinalysis Ord28 U-Ketone Negative 12/28/2017 Urinalysis Ord28 U-SG 1.015 12/28/2017 Urinalysis Ord28 U-Blood Negative 12/28/2017 Urinalysis Ord28 U-pH 8.0 12/28/2017 Urinalysis Ord28 U-Protein Negative 12/28/2017 Urinalysis Ord28 U-Urobilin 0.2 E.U./dL E.U./dL 12/28/2017 Urinalysis Ord28 U-Nitrites Negative 12/28/2017 Urinalysis Ord28 U-Leuk Negative 12/28/2017 Urinalysis Ord28 U-Bact 2+ 12/28/2017 Urinalysis Ord28 U-Squamous Epi 5-10 per/HPF 12/28/2017 Urinalysis Ord28 U-Crystal CALCIUM OXALATE per/HPF 12/28/2017 Urinalysis Ord28 U-Mucus None 12/28/2017 Urinalysis Ord28 U-Renal tubular epi None 12/28/2017 Urinalysis Ord28 U-RBC RARE per/HPF 12/28/2017 Urinalysis Ord28 U-Transitional epi RARE per/HPF 12/28/2017 Urinalysis Ord28 U-WBC 0-2 per/HPF 12/28/2017 Urinalysis Ord28 U-Cast None per/HPF 12/28/2017 Urinalysis Ord28 U-VOL VOLUME SUFFICIENT (10mL) 12/28/2017 Urinalysis Ord28 U-Yeast NEGATIVE 12/28/2017 Urinalysis Ord28 U-Com Culture to follow 12/28/2017 Valproic Acid Qne666 VALPROIC 38.0 ug/ml 11/22/2017 Valproic Acid Lww924 VALPROIC 44.0 ug/ml 10/22/2017 Hepatic Ahz778 ALBUMIN 3.3 g/dL 10/22/2017 Hepatic Mnd469 TPRO 5.7 g/dL 10/22/2017 Hepatic Esz442 GLOB 2.4 g/dL 10/22/2017 Hepatic Vfc799 A/G Ratio 1.4 Ratio 10/22/2017 Hepatic Njx456 ALK PHOS 72 U/L 10/22/2017 Hepatic Wma194 ALT(SGPT) 5 U/L 10/22/2017 Hepatic Fgo709 AST(SGOT) 9 U/L 10/22/2017 Hepatic Wxx747 BILI T 0.3 mg/dL 10/22/2017 Hepatic Efm204 BILI D 0.0 mg/dL 10/22/2017 Hepatic Jus858 BILI I 0.3 mg/dL 10/22/2017 Hepatic Dln455 ALBUMIN 3.8 g/dL 09/20/2017 Hepatic Qas451 TPRO 6.3 g/dL 09/20/2017 Hepatic Qup443 GLOB 2.5 g/dL 09/20/2017 Hepatic Ejz489 A/G Ratio 1.5 Ratio 09/20/2017 Hepatic Mvk721 ALK PHOS 67 U/L 09/20/2017 Hepatic Gdl297 ALT(SGPT) 5 U/L 09/20/2017 Hepatic Ojr292 AST(SGOT) 11 U/L 09/20/2017 Hepatic Bih871 BILI T 0.4 mg/dL 09/20/2017 Hepatic Xbp184 BILI D 0.1 mg/dL 09/20/2017 Hepatic Efq854 BILI I 0.3 mg/dL 09/20/2017 Valproic Acid Ymf457 VALPROIC 10.0 ug/ml 09/20/2017 Valproic Acid Fjz534 VALPROIC 44.0 ug/ml 08/23/2017 Hepatic Kwn002 ALBUMIN 3.5 g/dL 08/23/2017 Hepatic Rfr390 TPRO 6.1 g/dL 08/23/2017 Hepatic Yip241 GLOB 2.6 g/dL 08/23/2017 Hepatic Kgi424 A/G Ratio 1.4 Ratio 08/23/2017 Hepatic Yfk726 ALK PHOS 63 U/L 08/23/2017 Hepatic Vww462 ALT(SGPT) 5 U/L 08/23/2017 Hepatic Wqr012 AST(SGOT) 9 U/L 08/23/2017 Hepatic Rke949 BILI T 0.3 mg/dL 08/23/2017 Hepatic Gzw507 BILI D 0.1 mg/dL 08/23/2017 Hepatic Vit645 BILI I 0.2 mg/dL 08/23/2017 Hepatic Kzy552 ALBUMIN 3.5 g/dL 07/23/2017 Hepatic Ypv418 TPRO 5.9 g/dL 07/23/2017 Hepatic Mhe189 GLOB 2.4 g/dL 07/23/2017 Hepatic Rsz246 A/G Ratio 1.5 Ratio 07/23/2017 Hepatic Mhf209 ALK PHOS 61 U/L 07/23/2017 Hepatic Fqk259 ALT(SGPT) 6 U/L 07/23/2017 Hepatic Tah734 AST(SGOT) 11 U/L 07/23/2017 Hepatic Egi238 BILI T 0.3 mg/dL 07/23/2017 Hepatic Fig702 BILI D 0.1 mg/dL 07/23/2017 Hepatic Cou629 BILI I 0.2 mg/dL 07/23/2017 Valproic Acid Ean107 VALPROIC 37.0 ug/ml 07/23/2017 Hepatic Fwh968 ALBUMIN 3.6 g/dL 06/26/2017 Hepatic Zzk077 TPRO 6.0 g/dL 06/26/2017 Hepatic Wmv169 GLOB 2.4 g/dL 06/26/2017 Hepatic Gyj173 A/G Ratio 1.5 Ratio 06/26/2017 Hepatic Cbb402 ALK PHOS 64 U/L 06/26/2017 Hepatic Jbw900 ALT(SGPT) 8 U/L 06/26/2017 Hepatic Vqi221 AST(SGOT) 11 U/L 06/26/2017 Hepatic Ygy304 BILI T 0.3 mg/dL 06/26/2017 Hepatic Zkb550 BILI D 0.1 mg/dL 06/26/2017 Hepatic Jgy163 BILI I 0.2 mg/dL 06/26/2017 Valproic Acid Vxh849 VALPROIC 45.0 ug/ml 06/26/2017 Comp Metabolic Jly429 NA 140 mEq/L 05/18/2017 Comp Metabolic Rox708 K 4.2 mEq/L 05/18/2017 Comp Metabolic Bcv358 CL 103 mEq/L 05/18/2017 Comp Metabolic Fxj783 CO2 27.0 mEq/L 05/18/2017 Comp Metabolic Bjw830 ANION GAP 14 05/18/2017 Comp Metabolic Fqv532 GLUCOSE 85 mg/dL 05/18/2017 Comp Metabolic Rpu562 Creat 0.6 mg/dL 05/18/2017 Comp Metabolic Jfp460 eGFR 109 ml/min/1.73m2 05/18/2017 Comp Metabolic Mpf367 BUN 8 mg/dL 05/18/2017 Comp Metabolic Hhj666 B/C Ratio 14.3 Ratio 05/18/2017 Comp Metabolic Wen636 CALCIUM 8.6 mg/dL 05/18/2017 Comp Metabolic Bkj002 ALK PHOS 85 U/L 05/18/2017 Comp Metabolic Kxc518 AST(SGOT) 10 U/L 05/18/2017 Comp Metabolic Vma022 ALT(SGPT) 6 U/L 05/18/2017 Comp Metabolic Nnv754 BILI T 0.4 mg/dL 05/18/2017 Comp Metabolic Swi448 ALBUMIN 3.7 g/dL 05/18/2017 Comp Metabolic Sij728 TPRO 6.3 g/dL 05/18/2017 Comp Metabolic Tdo375 GLOB 2.6 g/dL 05/18/2017 Comp Metabolic Bbq867 A/G Ratio 1.4 Ratio 05/18/2017 Comp Metabolic Vzy003 Osmo 277 mOsmo 05/18/2017 Bili D Ord93 BILI D 0.1 mg/dL 05/18/2017 Bili D Ord93 BILI I 0.3 mg/dL 05/18/2017 Valproic Acid Rps592 VALPROIC 27.0 ug/ml 05/18/2017 Urinalysis Ord28 U-Color [...] hours from collection if refrigerated) 04/11/2017 A1C 1073648 A1C HPLC 67718-6 5.9 % 07/08/2013 LIPID GRP 1599536 HDL TEST 47 MG/DL 07/07/2013 LIPID GRP TRIG 121 MG/DL 07/07/2013 LIPID GRP TEST LDL 63 MG/DL 07/07/2013 LIPID GRP CHOL 134 MG/DL 07/07/2013 LIPID GRP RCHOL/HDL 2.85 RATIO 07/07/2013 CBC [id number] WBC 8.9 10e9/L 07/07/2013 CBC [id number] RBC 4.27 10e12/L 07/07/2013 CBC 8925362 HGB 12.7 g/dL 07/07/2013 CBC [id number] HCT DET 39.0 % 07/07/2013 CBC 0114858 MCV 91.3 fL 07/07/2013 CBC 8273403 MCH 29.7 pg 07/07/2013 CBC 3154194 MCHC 32.6 g/dL 07/07/2013 CBC [id number] PLT 273 10e9/L 07/07/2013 CBC 2149653 MPV 11.0 fL 07/07/2013 CBC 2348280 TORREY % 69.1 % 07/07/2013 CBC 2101795 LY % 19.6 % 07/07/2013 CBC 2066398 MON % 8.5 % 07/07/2013 CBC 3998243 EOS % 2.6 % 07/07/2013 CBC 6773761 BASO % 0.2 % 07/07/2013 CBC 2986588 RDW 13.0 % 07/07/2013 CBC 3140072 ABS TORREY 6.15 10e9/L 07/07/2013 CBC 6789815 ABS LYMPH 1.74 10e9/L 07/07/2013 CBC 7114743 ABS MONO 0.76 10e9/L 07/07/2013 CBC 0712761 ABS EOS 0.23 10e9/L 07/07/2013 CBC 2517538 ABS BASO 0.02 10e9/L 07/07/2013 CBC 6851727 RDW-SD 42.3 fL 07/07/2013 GFR CALC 3196839 GFR AA >60 ML/MIN 07/07/2013 GFR CALC 8754473 GFR NON-AA >60 ML/MIN 07/07/2013 CHEM 14 4816176 AST 14 U/L 07/07/2013 CHEM 14 0904913 ALT 10 IU/L 07/07/2013 CHEM 14 20280411 BUN 11 MG/DL 07/07/2013 CHEM 14 4404817 ALBUMIN 4.1 GM/DL 07/07/2013 CHEM 14 6069270 CHLORIDE 107 MMOL/L 07/07/2013 CHEM 14 2137740 BILI TOT 0.4 MG/DL 07/07/2013 CHEM 14 0954368 ALK PHOS 54 U/L 07/07/2013 CHEM 14 3110327 SODIUM 141 MMOL/L 07/07/2013 CHEM 14 6369637 CREATININE 0.70 MG/DL 07/07/2013 CHEM 14 1270635 CALCIUM 9.0 MG/DL 07/07/2013 CHEM 14 6889622 POTASSIUM 4.2 MMOL/L 07/07/2013 CHEM 14 1741649 PROT TOT 6.5 GM/DL 07/07/2013 CHEM 14 4724045 GLUCOSE 102 MG/DL 07/07/2013 CHEM 14 4143112 BICARB 28 MMOL/L 07/07/2013 CHEM 14 1182007 ANION GAP 6 MEQ/L 07/07/2013 CHEM 14 2858778 AST 14 U/L 01/06/2013 CHEM 14 5692804 ALT 12 IU/L 01/06/2013 CHEM 14 9774903 BUN 9 MG/DL 01/06/2013 CHEM 14 8190995 ALBUMIN 4.2 GM/DL 01/06/2013 CHEM 14 0817199 CHLORIDE 108 MMOL/L 01/06/2013 CHEM 14 5207763 BILI TOT 0.4 MG/DL 01/06/2013 CHEM 14 1657890 ALK PHOS 74 U/L 01/06/2013 CHEM 14 2338734 SODIUM 142 MMOL/L 01/06/2013 CHEM 14 9931722 CREATININE 0.62 MG/DL 01/06/2013 CHEM 14 5257420 CALCIUM 9.0 MG/DL 01/06/2013 CHEM 14 4355486 POTASSIUM 4.3 MMOL/L 01/06/2013 CHEM 14 5363534 PROT TOT 6.6 GM/DL 01/06/2013 CHEM 14 1871327 GLUCOSE 94 MG/DL 01/06/2013 CHEM 14 3852772 BICARB 25 MMOL/L 01/06/2013 CHEM 14 5219169 ANION GAP 9 MEQ/L 01/06/2013 CBC 9553601 WBC 7.2 10e9/L 01/06/2013 CBC 4939379 RBC 4.22 10e12/L 01/06/2013 CBC 3195141 HGB 12.6 g/dL 01/06/2013 CBC 2653494 HCT DET 38.3 % 01/06/2013 CBC 4724976 MCV 90.8 fL 01/06/2013 CBC 2057256 MCH 29.9 pg 01/06/2013 CBC 6361182 MCHC 32.9 g/dL 01/06/2013 CBC 2417767 PLT 287 10e9/L 01/06/2013 CBC [id number] MPV 11.0 fL 01/06/2013 CBC 9272444 TORREY % 68.0 % 01/06/2013 CBC 5623231 LY % 21.6 % 01/06/2013 CBC 3558126 MON % 9.0 % 01/06/2013 CBC 1972558 EOS % 1.3 % 01/06/2013 CBC 1353742 BASO % 0.1 % 01/06/2013 CBC 6456830 RDW 13.3 % 01/06/2013 CBC 4651552 ABS TORREY 4.90 10e9/L 01/06/2013 CBC 4628168 ABS LYMPH 1.56 10e9/L 01/06/2013 CBC 0905662 ABS MONO 0.65 10e9/L 01/06/2013 CBC 2192335 ABS EOS 0.09 10e9/L 01/06/2013 CBC 6878500 ABS BASO 0.01 10e9/L 01/06/2013 CBC 4295633 RDW-SD 43.0 fL 01/06/2013 VIT B 12 7570031 VIT B 12 >2000 PG/ML 01/06/2013 TSH 5872362 TSH 1.814 uIU/ML 01/06/2013 GFR CALC 5596622 GFR AA >60 ML/MIN 01/06/2013 GFR CALC 0507825 GFR NON-AA >60 ML/MIN 01/06/2013 FREE T4 6156302 FREE T4 1.19 NG/DL 01/06/2013 URINALYSIS NONAUTO W/O SCOPE 92068 Specific Moran 1.020 DateTime(Free Text in Aprima) URINALYSIS NONAUTO W/O SCOPE 72041 PH 6.0 DateTime(Free Text in Aprima) URINALYSIS NONAUTO W/O SCOPE 38404 GLUCOSE negative DateTime(Free Text in Aprima) URINALYSIS NONAUTO W/O SCOPE 04537 Protein negative DateTime(Free Text in Aprima) URINALYSIS NONAUTO W/O SCOPE 86609 Blood negative DateTime( Free Text in Aprima) URINALYSIS NONAUTO W/O SCOPE 02632 Bilirubin negative DateTime(Free Text in Aprima) URINALYSIS NONAUTO W/O SCOPE 53007 Ketones trace DateTime(Free Text in Aprima) URINALYSIS NONAUTO W/O SCOPE 07475 Urobilinogen negative DateTime(Free Text in Aprima) URINALYSIS NONAUTO W/O SCOPE 90739 Nitrite negative DateTime(Free Text in Aprima) URINALYSIS NONAUTO W/O SCOPE 71605 Leukocytes 1+ DateTime(Free Text in Aprima) URINALYSIS NONAUTO W/O SCOPE 32581 Specific [place] 1.005 DateTime(Free Text in Aprima) URINALYSIS NONAUTO W/O SCOPE 05249 PH 5 DateTime(Free Text in Aprima) URINALYSIS NONAUTO W/O SCOPE 51306 GLUCOSE neg DateTime( Free Text in Aprima) URINALYSIS NONAUTO W/O SCOPE 56354 Protein neg DateTime( Free Text in Aprima) URINALYSIS NONAUTO W/O SCOPE 17130 Blood neg DateTime(Free Text in Aprima) URINALYSIS NONAUTO W/O SCOPE 83667 Bilirubin neg DateTime(Free Text in Aprima) URINALYSIS NONAUTO W/O SCOPE 48648 Ketones neg DateTime( Free Text in Aprima) URINALYSIS NONAUTO W/O SCOPE 31080 Urobilinogen neg DateTime(Free Text in Aprima) URINALYSIS NONAUTO W/O SCOPE 72662 Nitrite neg DateTime( Free Text in Aprima) URINALYSIS NONAUTO W/O SCOPE 22461 Leukocytes neg DateTime(Free Text in Aprima) URINALYSIS NONAUTO W/O SCOPE 84933 Specific [place] 1.010 DateTime(Free Text in Aprima) URINALYSIS NONAUTO W/O SCOPE 42657 PH 6 DateTime(Free Text in Aprima) URINALYSIS NONAUTO W/O SCOPE 53811 GLUCOSE DateTime( Free Text in Aprima) URINALYSIS NONAUTO W/O SCOPE 80172 Protein DateTime( Free Text in Aprima) URINALYSIS NONAUTO W/O SCOPE 00067 Blood DateTime(Free Text in Aprima) URINALYSIS NONAUTO W/O SCOPE 79707 Bilirubin DateTime( Free Text in Aprima) URINALYSIS NONAUTO W/O SCOPE 45545 Ketones DateTime( Free Text in Aprima) URINALYSIS NONAUTO W/O SCOPE 06711 Urobilinogen DateTime (Free Text in Aprima) URINALYSIS NONAUTO W/O SCOPE 69092 Nitrite DateTime( Free Text in Aprima) URINALYSIS NONAUTO W/O SCOPE 14155 Leukocytes trace DateTime(Free Text in Aprima) Review of Systems System Result Effective Dates Constitutional No anorexia 08/15/2018 Constitutional No night sweats 2017 Constitutional No chills 08/15/2018 Constitutional No diaphoresis 08/15/2018 Constitutional fatigue 08/15/2018 Constitutional No fever 08/15/2018 Constitutional No insomnia 08/15/2018 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 Eyes No eye discharge 08/15/2018 Eyes No eye erythema 08/15/2018 Eyes macular degeneration 08/15/2018 Ears/Nose/Throat/Neck No dizziness 2017 Ears/Nose/Throat/Neck No headache 2017 Ears/Nose/Throat/Neck No nasal allergies 08/15/2018 Ears/Nose/Throat/Neck No nasal discharge 08/15/2018 Ears/Nose/Throat/Neck No otalgia 2017 Ears/Nose/Throat/Neck No sinus congestion 08/15/2018 Cardiovascular No chest pain/pressure 05/2018 Cardiovascular No dyspnea 08/15/2018 Cardiovascular No edema 08/15/2018 Cardiovascular hypertension 08/15/2018 Respiratory No chest congestion 2017 Respiratory No chest tightness 2017 Respiratory No cough 08/15/2018 Gastrointestinal No abdominal pain 2017 Gastrointestinal No constipation 2017 Gastrointestinal No diarrhea 08/15/2018 Gastrointestinal No nausea 08/15/2018 Gastrointestinal No vomiting 08/15/2018 Genitourinary/Nephrology No dysuria 08/15 Musculoskeletal No stiffness 08/15/2018 Musculoskeletal No arthralgia(s) 2017 Musculoskeletal No joint complaint 2017 Dermatologic No rash 08/15/2018 Dermatologic sores 08/15/2018 Dermatologic No scar 08/15/2018 Neurologic No alteration of consciousness 08/15/2018 Neurologic memory loss 08/15/2018 Psychiatric anxiety 08/15/2018 Psychiatric depression 08/15/2018 Psychiatric disturbances of emotion 08/15 Psychiatric disturbances of memory 2017 Psychiatric disturbances of thinking 05/2018 Psychiatric hallucination 08/15/2018 Constitutional No anorexia 06/06/2018 Constitutional No night sweats 2017 Constitutional No chills 06/06/2018 Constitutional No diaphoresis 06/06/2018 Constitutional fatigue 06/06/2018 Constitutional No fever 06/06/2018 Constitutional No insomnia 06/06/2018 Eyes blindness 06/06/2018 Eyes No eye discharge 06/06/2018 Eyes No eye erythema 06/06/2018 Eyes macular degeneration 06/06/2018 Ears/Nose/Throat/Neck No dizziness 2017 Ears/Nose/Throat/Neck No headache 2017 Ears/Nose/Throat/Neck No nasal allergies 06/06/2018 Ears/Nose/Throat/Neck No nasal discharge 06/06/2018 Ears/Nose/Throat/Neck No otalgia 2017 Ears/Nose/Throat/Neck No sinus congestion 06/06/2018 Cardiovascular No chest pain/pressure Cardiovascular No dyspnea 06/06/2018 Cardiovascular No edema 06/06/2018 Cardiovascular hypertension 06/06/2018 Respiratory No chest congestion 2017 Respiratory No chest tightness 2017 Respiratory No cough 06/06/2018 Gastrointestinal No abdominal pain 2017 Gastrointestinal No constipation 2017 Gastrointestinal No diarrhea 06/06/2018 Gastrointestinal No nausea 06/06/2018 Gastrointestinal No vomiting 06/06/2018 Genitourinary/Nephrology No dysuria 06/06 Musculoskeletal No stiffness 06/06/2018 Musculoskeletal No arthralgia(s) 2017 Musculoskeletal No joint complaint 2017 Dermatologic No rash 06/06/2018 Dermatologic sores 06/06/2018 Dermatologic No scar 06/06/2018 Neurologic No alteration of consciousness 06/06/2018 Neurologic memory loss 06/06/2018 Psychiatric anxiety 06/06/2018 Psychiatric depression 06/06/2018 Psychiatric disturbances of emotion 06/06 Psychiatric disturbances of memory 2017 Psychiatric disturbances of thinking Psychiatric hallucination 06/06/2018 Constitutional No anorexia 02/28/2018 Constitutional No night sweats 2017 Constitutional No chills 02/28/2018 Constitutional No diaphoresis 02/28/2018 Constitutional fatigue 02/28/2018 Constitutional No fever 02/28/2018 Constitutional No insomnia 02/28/2018 Eyes blindness 02/28/2018 Eyes No eye discharge 02/28/2018 Eyes No eye erythema 02/28/2018 Eyes macular degeneration 02/28/2018 Ears/Nose/Throat/Neck No dizziness 2017 Ears/Nose/Throat/Neck No headache 2017 Ears/Nose/Throat/Neck No nasal allergies 02/28/2018 Ears/Nose/Throat/Neck No nasal discharge 02/28/2018 Ears/Nose/Throat/Neck No otalgia 2017 Ears/Nose/Throat/Neck No sinus congestion 02/28/2018 Cardiovascular No chest pain/pressure Cardiovascular No dyspnea 02/28/2018 Cardiovascular No edema 02/28/2018 Cardiovascular hypertension 02/28/2018 Respiratory No chest congestion 2017 Respiratory No chest tightness 2017 Respiratory No cough 02/28/2018 Gastrointestinal No abdominal pain 2017 Gastrointestinal No constipation 2017 Gastrointestinal No diarrhea 02/28/2018 Gastrointestinal No nausea 02/28/2018 Gastrointestinal No vomiting 02/28/2018 Genitourinary/Nephrology No dysuria 02/28 Musculoskeletal No stiffness 02/28/2018 Musculoskeletal No arthralgia(s) 2017 Musculoskeletal No joint complaint 2017 Dermatologic No rash 02/28/2018 Dermatologic sores 02/28/2018 Dermatologic No scar 02/28/2018 Neurologic No alteration of consciousness 02/28/2018 Neurologic memory loss 02/28/2018 Psychiatric anxiety 02/28/2018 Psychiatric depression 02/28/2018 Psychiatric disturbances of emotion 02/28 Psychiatric disturbances of memory 2017 Psychiatric disturbances of thinking Psychiatric hallucination 02/28/2018 Constitutional No anorexia 11/22/2017 Constitutional No night [...] 1994 Constitutional general appearance Overall: well developed 08/15/2018 None Full Exam - General 1994 Constitutional general appearance Overall: in no acute distress 08/15/2018 None Full Exam - General 1994 Constitutional general appearance Overall: well nourished 08/15/2018 None Full Exam - General 1994 Eyes pupils and irises Overall: pupils equal, round, reactive to light and accomodation 08/15/2018 None Full Exam - General 1994 Ears/Nose/Throat otoscopic exam Overall: external auditory canals clear 08/15/2018 None Full Exam - General 1994 Ears/Nose/Throat otoscopic exam Overall: tympanic membranes clear 08/15/2018 None Full Exam - General 1994 Ears/Nose/Throat lips/teeth/gingiva Lips: dry 08/15/2018 None Full Exam - General 1994 Ears/Nose/Throat oral cavity/pharynx/larynx Overall: oral mucosa clear 08/15/2018 None Full Exam - General 1994 Ears/Nose/Throat oral cavity/pharynx/larynx Overall: oropharyngeal mucosa clear 08/15/2018 None Full Exam - General 1994 Ears/Nose/Throat oral cavity/pharynx/larynx Overall: no masses 08/15/2018 None Full Exam - General 1994 Respiratory auscultation Overall: breath sounds clear bilaterally 08/15/2018 None Full Exam - General 1994 Respiratory respiratory effort/rhythm Overall: no retractions 08/15/2018 None Full Exam - General 1994 Respiratory respiratory effort/rhythm Overall: normal rate 08/15/2018 None Full Exam - General 1994 Cardiovascular extremities Overall: no clubbing 08/15/2018 None Full Exam - General 1994 Cardiovascular auscultation of heart Overall: regular rate 08/15/2018 None Full Exam - General 1994 Cardiovascular auscultation of heart Overall: normal heart sounds 08/15/2018 None Full Exam - General 1994 Cardiovascular auscultation of heart Overall: no murmurs 08/15/2018 None Full Exam - General 1994 Abdomen abdominal exam Overall: no tenderness 08/15/2018 None Full Exam - General 1994 Abdomen abdominal exam Overall: normal bowel sounds 08/15/2018 None Full Exam - General 1994 Lymphatic neck nodes Overall: anterior cervical chain benign 08/15/2018 None Full Exam - General 1994 Lymphatic neck nodes Overall: posterior cervical chain benign 08/15/2018 None Full Exam - General 1994 Musculoskeletal spine, ribs and pelvis Posture: kyphosis 08/15/2018 None Full Exam - General 1994 Musculoskeletal head and neck Overall: head atraumatic 08/15/2018 None Full Exam - General 1994 Musculoskeletal head and neck Overall: cervical spine benign 08/15/2018 None Full Exam - General 1994 Neurologic deep tendon reflexes Overall: deep tendon reflexes intact 08/15/2018 None Full Exam - General 1994 Neurologic gait Conventional walking: wide-based 08/15/2018 None Full Exam - General 1994 Psychiatric orientation/consciousness Oriented to person: yes 08/15/2018 None Full Exam - General 1994 Psychiatric orientation/consciousness Oriented to place: no 08/15/2018 None Full Exam - General 1994 Psychiatric orientation/consciousness Oriented to time: no 08/15/2018 None Full Exam - General 1994 Psychiatric orientation/consciousness Level of consciousness: alert 08/15/2018 None Full Exam - General 1994 Psychiatric mood and affect Overall: normal mood and affect 08/15/2018 None Full Exam - General 1994 Constitutional general appearance Overall: well developed 06/06/2018 None Full Exam - General 1994 Constitutional general appearance Overall: in no acute distress 06/06/2018 None Full Exam - General 1994 Constitutional general appearance Overall: well nourished 06/06/2018 None Full Exam - General 1994 Eyes pupils and irises Overall: pupils equal, round, reactive to light and accomodation 06/06/2018 None Full Exam - General 1994 Ears/Nose/Throat otoscopic exam Overall: external auditory canals clear 06/06/2018 None Full Exam - General 1994 Ears/Nose/Throat otoscopic exam Overall: tympanic membranes clear 06/06/2018 None Full Exam - General 1994 Ears/Nose/Throat lips/teeth/gingiva Lips: dry 06/06/2018 None Full Exam - General 1994 Ears/Nose/Throat oral cavity/pharynx/larynx Overall: oral mucosa clear 06/06/2018 None Full Exam - General 1994 Ears/Nose/Throat oral cavity/pharynx/larynx Overall: oropharyngeal mucosa clear 06/06/2018 None Full Exam - General 1994 Ears/Nose/Throat oral cavity/pharynx/larynx Overall: no masses 06/06/2018 None Full Exam - General 1994 Respiratory auscultation Overall: breath sounds clear bilaterally 06/06/2018 None Full Exam - General 1994 Respiratory respiratory effort/rhythm Overall: no retractions 06/06/2018 None Full Exam - General 1994 Respiratory respiratory effort/rhythm Overall: normal rate 06/06/2018 None Full Exam - General 1994 Cardiovascular extremities Overall: no clubbing 06/06/2018 None Full Exam - General 1994 Cardiovascular auscultation of heart Overall: regular rate 06/06/2018 None Full Exam - General 1994 Cardiovascular auscultation of heart Overall: normal heart sounds 06/06/2018 None Full Exam - General 1994 Cardiovascular auscultation of heart Overall: no murmurs 06/06/2018 None Full Exam - General 1994 Abdomen abdominal exam Overall: no tenderness 06/06/2018 None Full Exam - General 1994 Abdomen abdominal exam Overall: normal bowel sounds 06/06/2018 None Full Exam - General 1994 Lymphatic neck nodes Overall: anterior cervical chain benign 06/06/2018 None Full Exam - General 1994 Lymphatic neck nodes Overall: posterior cervical chain benign 06/06/2018 None Full Exam - General 1994 Musculoskeletal spine, ribs and pelvis Posture: kyphosis 06/06/2018 None Full Exam - General 1994 Musculoskeletal head and neck Overall: head atraumatic 06/06/2018 None Full Exam - General 1994 Musculoskeletal head and neck Overall: cervical spine benign 06/06/2018 None Full Exam - General 1994 Neurologic deep tendon reflexes Overall: deep tendon reflexes intact 06/06/2018 None Full Exam - General 1994 Neurologic gait Conventional walking: wide-based 06/06/2018 None Full Exam - General 1994 Psychiatric orientation/consciousness Oriented to person: yes 06/06/2018 None Full Exam - General 1994 Psychiatric orientation/consciousness Oriented to place: no 06/06/2018 None Full Exam - General 1994 Psychiatric orientation/consciousness Oriented to time: no 06/06/2018 None Full Exam - General 1994 Psychiatric orientation/consciousness Level of consciousness: alert 06/06/2018 None Full Exam - General 1994 Psychiatric mood and affect Overall: normal mood and affect 06/06/2018 None Full Exam - General 1994 Constitutional general appearance Overall: well developed 02/28/2018 None Full Exam - General 1994 Constitutional general appearance Overall: in no acute distress 02/28/2018 None Full Exam - General 1994 Constitutional general appearance Overall: well nourished 02/28/2018 None Full Exam - General 1994 Eyes pupils and irises Overall: pupils equal, round, reactive to light and accomodation 02/28/2018 None Full Exam - General 1994 Ears/Nose/Throat otoscopic exam Overall: external auditory canals clear 02/28/2018 None Full Exam - General 1994 Ears/Nose/Throat otoscopic exam Overall: tympanic membranes clear 02/28/2018 None Full Exam - General 1994 Ears/Nose/Throat lips/teeth/gingiva Lips: dry 02/28/2018 None Full Exam - General 1994 Ears/Nose/Throat oral cavity/pharynx/larynx Overall: oral mucosa clear 02/28/2018 None Full Exam - General 1994 Ears/Nose/Throat oral cavity/pharynx/larynx Overall: oropharyngeal mucosa clear 02/28/2018 None Full Exam - General 1994 Ears/Nose/Throat oral cavity/pharynx/larynx Overall: no masses 02/28/2018 None Full Exam - General 1994 Respiratory auscultation Overall: breath sounds clear bilaterally 02/28/2018 None Full Exam - General 1994 Respiratory respiratory effort/rhythm Overall: no retractions 02/28/2018 None Full Exam - General 1994 Respiratory respiratory effort/rhythm Overall: normal rate 02/28/2018 None Full Exam - General 1994 Cardiovascular extremities Overall: no clubbing 02/28/2018 None Full Exam - General 1994 Cardiovascular auscultation of heart Overall: regular rate 02/28/2018 None Full Exam - General 1994 Cardiovascular auscultation of heart Overall: normal heart sounds 02/28/2018 None Full Exam - General 1994 Cardiovascular auscultation of heart Overall: no murmurs 02/28/2018 None Full Exam - General 1994 Abdomen abdominal exam Overall: no tenderness 02/28/2018 None Full Exam - General 1994 Abdomen abdominal exam Overall: normal bowel sounds 02/28/2018 None Full Exam - General 1994 Lymphatic neck nodes Overall: anterior cervical chain benign 02/28/2018 None Full Exam - General 1994 Lymphatic neck nodes Overall: posterior cervical chain benign 02/28/2018 None Full Exam - General 1994 Musculoskeletal spine, ribs and pelvis Posture: kyphosis 02/28/2018 None Full Exam - General 1994 Musculoskeletal head and neck Overall: head atraumatic 02/28/2018 None Full Exam - General 1994 Musculoskeletal head and neck Overall: cervical spine benign 02/28/2018 None Full Exam - General 1994 Neurologic deep tendon reflexes Overall: deep tendon reflexes intact 02/28/2018 None Full Exam - General 1994 Neurologic gait Conventional walking: wide-based 02/28/2018 None Full Exam - General 1994 Psychiatric orientation/consciousness Oriented to person: yes 02/28/2018 None Full Exam - General 1994 Psychiatric orientation/consciousness Oriented to place: no 02/28/2018 None Full Exam - General 1994 Psychiatric orientation/consciousness Oriented to time: no 02/28/2018 None Full Exam - General 1994 Psychiatric orientation/consciousness Level of consciousness: alert 02/28/2018 None Full Exam - General 1994 Psychiatric mood and affect Overall: normal mood and affect 02/28/2018 None Full Exam - General 1994 Constitutional [...] lower right gingiva Full Exam - General 1995 Ears/Nose/Throat oral [...] lordosis 01/06/2013 None Full Exam - General 1995 [...] nourished 05/23/2012 None Full Exam - General 1995 [...] FLU VACC PRSV FREE INC ANTIG CPT-4: 57694 06/22/2016 ADMIN PNEUMOCOCCAL VACCINE SNOMED CT: 37760854 CPT-4: G0009 09/16/2015 PNEUMOCOCCAL VACC 13 QUYEN IM Formatting Model/CDA Sections, Assigned to SNOMED CT: 87531487 CPT-4: 05960Hqjfclq 09/16/2015 ADMIN INFLUENZA VIRUS VAC Formatting Model/CDA Sections, Assigned to/Arabella Sharma CPT-4: D1708Ibgeqxy 07/01/2015 FLU VACC 4 QUYEN 3 YRS PLUS IM SNOMED CT: 30828446 CPT-4: 07541 07/01/2015 FLU VAC NO PRSV 4 QUYEN 3 YRS+ CPT-4: 26536 06/11/2014 ADMIN INFLUENZA VIRUS VAC Assigned to/Arabella Sharma CPT-4: P1595Zeqlvlx 06/11/2014 URINALYSIS NONAUTO W/O SCOPE CPT-4: 60509 07/31/2013 ADMIN INFLUENZA VIRUS VAC CPT-4: G0008 07/07/2013 FLULAVAL VACC, 3 YRS & >, IM CPT-4: Q2036 07/07/2013 ROUTINE VENIPUNCTURE CPT-4: 16867 07/07/2013 51129 EST. PATIENT, LEVEL IV CPT-4: 82178 06/12/2013 63592 EST. PATIENT, LEVEL IV CPT-4: 31476 02/13/2013 ROUTINE VENIPUNCTURE CPT-4: 68785 01/06/2013 URINALYSIS NONAUTO W/O SCOPE CPT-4: 76996 01/06/2013 71246 EST. PATIENT, LEVEL IV CPT-4: 80355 09/19/2012 URINALYSIS NONAUTO W/O SCOPE CPT-4: 54676 09/19/2012 IMMUNIZATION ADMIN CPT -4: 86158 07/25/2012 Influenza Virus Vaccine, Split Virus, >3 Yrs, IM CPT-4: 27228 07/25/2012 URINALYSIS NONAUTO W/O SCOPE CPT-4: 05018 05/23/2012 URINALYSIS NONAUTO W/O SCOPE CPT-4: 03503 04/05/2012 Vital Signs Date Vital 08/15/2018 Blood Pressure 1: 150/80 Code : 8480-6 BMI: 29.6 Code : 42274-2 Heart Rate 1 : 72 bpm Height: 5'2" SpO2: 94% Weight: 162 lbs 06/06/2018 Blood Pressure 1: 140/70 Code : 8480-6 BMI: 29.1 Code : 19229-1 Heart Rate 1 : 72 bpm Height: 5'2" SpO2: 94% Weight: 159 lbs 02/28/2018 Blood Pressure 1: 140/76 Code : 8480-6 BMI: 28.9 Code : 74590-2 Heart Rate 1 : 69 bpm Height: 5'2" SpO2: 97% Weight: 158 lbs 11/22/2017 Blood Pressure 1: 146/84 Code : 8480-6 BMI: 29.4 Code : 33833-2 Heart Rate 1 : 72 bpm Height: 5'2" SpO2: 96% Weight: 161 lbs 08/16/2017 Blood Pressure 1: 130/68 Code : 8480-6 BMI: 28.9 Code : 87300-9 Heart Rate 1 : 63 bpm Height: 5'2" SpO2: 96% Weight: 158 lbs 05/17/2017 Blood Pressure 1: 138/80 Code : 8480-6 Heart Rate 1: 88 bpm Height: SpO2: 96% Weight: 04/25/2017 Blood Pressure 1: 140/74 Code : 8480-6 BMI: 29.8 Code : 75568-8 Heart Rate 1 : 106 bpm Height: 5'2" SpO2: 96% Weight: 163 lbs 03/22/2017 Blood Pressure 1: 128/82 Code : 8480-6 BMI: 30.4 Code : 34696-4 Heart Rate 1 : 76 bpm Height: 5'2" SpO2: 95% Weight: 166 lbs 12/21/2016 Blood Pressure 1: 144/80 Code : 8480-6 BMI: 30.9 Code : 53223-1 Heart Rate 1 : 72 bpm Height: 5'2" SpO2: 98% Weight: 169 lbs 09/21/2016 Blood Pressure 1: 140/76 Code : 8480-6 BMI: 30.5 Code : 67988-4 Heart Rate 1 : 78 bpm Height: 5'2" SpO2: 97% Weight: 167 lbs 06/22/2016 Blood Pressure 1: 132/74 Code : 8480-6 BMI: 30.9 Code : 27651-2 Heart Rate 1 : 71 bpm Height: 5'2" SpO2: 98% Weight: 169 lbs 03/23/2016 Blood Pressure 1: 122/68 Code : 8480-6 BMI: 29.8 Code : 19739-2 Heart Rate 1 : 68 bpm Height: 5'2" SpO2: 98% Weight: 163 lbs 12/16/2015 Blood Pressure 1: 142/70 Code : 8480-6 BMI: 30.5 Code : 36243-9 Heart Rate 1 : 68 bpm Height: 5'2" SpO2: 98% Weight: 167 lbs 09/16/2015 Blood Pressure 1: 124/58 Code : 8480-6 BMI: 30.0 Code : 12772-8 Heart Rate 1 : 59 bpm Height: 5'2" SpO2: 96% Weight: 164 lbs 07/01/2015 Blood Pressure 1: 128/74 Code : 8480-6 BMI: 29.8 Code : 94732-8 Heart Rate 1 : 62 bpm Height: 5'2" SpO2: 98% Weight: 163 lbs 02/25/2015 Blood Pressure 1: 142/92 Code : 8480-6 Blood Pressure 2: 138/90 Code: 8480-6 BMI: 29.1 Code: 29458-2 Heart Rate 1: 78 bpm Height: 5'2" SpO2: 98% Weight: 159 lbs 11/19/2014 Blood Pressure 1: 130/80 Code : 8480-6 BMI: 28.3 Code : 56777-3 Heart Rate 1 : 68 bpm Height: 5'2" Weight: 155 lbs 08/13/2014 Blood Pressure 1: 122/62 Code : 8480-6 BMI: 27.4 Code : 69863-6 Heart Rate 1 : 72 bpm Height: 5'2" Weight: 150 lbs 06/11/2014 Blood Pressure 1: 112/56 Code : 8480-6 BMI: 27.0 Code : 65154-1 Heart Rate 1 : 67 bpm Height: 5'2" SpO2: 98% Weight: 147 lbs 8 oz 04/16/2014 Blood Pressure 1: 120/62 Code : 8480-6 BMI: 26.7 Code : 40220-1 Heart Rate 1 : 68 bpm Height: 5'2" Weight: 146 lbs 03/12/2014 Blood Pressure 1: 132/82 Code : 8480-6 BMI: 27.1 Code : 67092-5 Heart Rate 1 : 64 bpm Height: 5'2" Weight: 148 lbs 02/26/2014 Blood Pressure 1: 104/50 Code : 8480-6 BMI: 25.8 Code : 49286-9 Heart Rate 1 : 64 bpm Height: 5'2" Weight: 141 lbs 11/27/2013 Blood Pressure 1: 122/68 Code : 8480-6 Heart Rate 1: 60 bpm Weight: 153 lbs 10/16/2013 Blood Pressure 1: 136/72 Code : 8480-6 BMI: 27.4 Code : 12716-0 Heart Rate 1 : 80 bpm Height: 5'2" Weight: 150 lbs 07/10/2013 Blood Pressure 1: 126/76 Code : 8480-6 BMI: 27.3 Code : 15218-7 Heart Rate 1 : 80 bpm Height: 5'2" Weight: 149 lbs 06/12/2013 Blood Pressure 1: 168/80 Code : 8480-6 BMI: 27.3 Code : 61222-6 Heart Rate 1 : 76 bpm Height: 5'2" Weight: 149 lbs 8 oz 02/13/2013 Blood Pressure 1: 108/72 Code : 8480-6 BMI: 27.4 Code : 98679-2 Heart Rate 1 : 80 bpm Height: 5'2" Weight: 150 lbs 01/06/2013 Blood Pressure 1: 126/62 Code : 8480-6 BMI: 27.6 Code : 72242-7 Heart Rate 1 : 76 bpm Height: [...] Code : 8480-6 BMI: 27.8 Code : 81198-1 Heart Rate 1 : 80 bpm Height: 5'2" Respiratory Rate: 20 bpm Weight: 152 lbs Functional Status No Functional Status data History of Present Illness Symptom Name Status Result Effective Date Notes memory loss Onset and Resolution gradual in onset 08/15/2018 None memory loss Onset and Resolution ongoing 08/15/2018 None memory loss Onset of Symptom during adulthood 08/15/2018 None memory loss Limitation on Activities moderately limits activities 08/15/2018 None memory loss Alleviating Factors medication 08/15/2018 None memory loss Pertinent Findings difficulty reading 08/15/2018 None memory loss Pertinent Findings difficulty writing 08/15/2018 None memory loss Quality chronic 08/15/2018 None hypertension Quality primary hypertension 08/15/2018 None hypertension Onset and Resolution ongoing 08/15/2018 None hypertension Onset of Symptom during adulthood 08/15/2018 None hypertension Alleviating Factors medication 08/15/2018 None hypertension Pertinent Findings Denies anxiety 08/15/2018 None hypertension Pertinent Findings Denies decreased energy 08/15/2018 None hypertension Pertinent Findings Denies dizziness 08/15/2018 None hypertension Pertinent Findings Denies dyspnea 08/15/2018 None hypertension Pertinent Findings Denies edema 08/15/2018 in her feet hypertension Blood Pressure Values patient checking blood pressure at home - did not bring in readings 08/15/2018 nurses check at [facility] memory loss Onset and Resolution gradual in onset 06/06/2018 None memory loss Onset and Resolution ongoing 06/06/2018 None memory loss Onset of Symptom during adulthood 06/06/2018 None memory loss Limitation on Activities moderately limits activities 06/06/2018 None memory loss Alleviating Factors medication 06/06/2018 None memory loss Pertinent Findings difficulty reading 06/06/2018 None memory loss Pertinent Findings difficulty writing 06/06/2018 None memory loss Quality chronic 06/06/2018 None hypertension Quality primary hypertension 06/06/2018 None hypertension Onset and Resolution ongoing 06/06/2018 None hypertension Onset of Symptom during adulthood 06/06/2018 None hypertension Alleviating Factors medication 06/06/2018 None hypertension Pertinent Findings Denies anxiety 06/06/2018 None hypertension Pertinent Findings Denies decreased energy 06/06/2018 None hypertension Pertinent Findings Denies dizziness 06/06/2018 None hypertension Pertinent Findings Denies dyspnea 06/06/2018 None hypertension Pertinent Findings Denies edema 06/06/2018 in her feet memory loss Onset and Resolution gradual in onset 02/28/2018 None memory loss Onset and Resolution ongoing 02/28/2018 None memory loss Onset of Symptom during adulthood 02/28/2018 None memory loss Limitation on Activities moderately limits activities 02/28/2018 None memory loss Alleviating Factors medication 02/28/2018 None memory loss Pertinent Findings difficulty reading 02/28/2018 None memory loss Pertinent Findings difficulty writing 02/28/2018 None memory loss Quality chronic 02/28/2018 None hypertension Quality primary hypertension 02/28/2018 None hypertension Onset and Resolution ongoing 02/28/2018 None hypertension Onset of Symptom during adulthood 02/28/2018 None hypertension Alleviating Factors medication 02/28/2018 None hypertension Pertinent Findings edema 02/28/2018 in her feet hypertension Pertinent Findings Denies dyspnea 02/28/2018 None hypertension Pertinent Findings Denies dizziness 02/28/2018 None hypertension Pertinent Findings Denies decreased energy 02/28/2018 None hypertension Pertinent Findings Denies anxiety 02/28/2018 None memory loss Onset and Resolution gradual [...] Present Encounters Encounter Performer Location Codes Date ([id number]) [id number] EST. PATIENT, LEVEL IV Diagnosis: Essential (primary) hypertension[ICD10: I10] Diagnosis: Mixed hyperlipidemia[ICD10: E78.2] Diagnosis: Dementia with Lewy bodies[ICD10: G31.83] Allie Mcneill MD, [facility] CPT-4: 44136 08/15/2018 ([id number]) 68188 EST. 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 PATIENT, LEVEL IV Diagnosis: Mixed hyperlipidemia[ICD10: E78.2] Diagnosis: Dementia with Lewy bodies[ICD10: G31.83] Diagnosis: Major depressive disorder, recurrent, mild[ICD10: F33.0] Allie Mcneill MD, [facility] CPT-4: 34404 12/21/[id number]) 23470 EST. PATIENT, LEVEL IV Diagnosis: Dementia with Lewy bodies[ICD10: G31.83] Diagnosis: Mixed hyperlipidemia[ICD10: E78.2] Diagnosis: Encounter for immunization[ICD10: Z23] Diagnosis: Major depressive disorder, recurrent, mild[ICD10: F33.0] Allie Mcneill MD [facility] CPT-4: 55084 09/21/2016 ([id number]) 82877 EST. PATIENT, LEVEL III Diagnosis: Encounter for immunization[ICD10: Z23] Diagnosis: Dementia with Lewy bodies[ICD10: G31.83] Diagnosis: Major depressive disorder, recurrent, mild[ICD10: F33.0] Allie Mcneill MD, [facility] CPT-4: 59547 06/22/2016 ([id number]) 54444 EST. PATIENT, LEVEL III Diagnosis: Mixed hyperlipidemia[ICD10: E78.2] Diagnosis: Dementia with Lewy bodies[ICD10: G31.83] Allie Mcneill MD, [facility] CPT-4: 15533 03/23/[id number]) 15026 EST. PATIENT, LEVEL IV Diagnosis: Dementia with Lewy bodies[ICD10: G31.83] Diagnosis: Other hallucinations[ICD10: R44.2] Diagnosis: Mixed hyperlipidemia[ICD10: E78.2] Allie Mcneill MD, [facility] CPT-4: 55993 12/16/2015 ([id number]) 79572 EST. PATIENT, LEVEL IV Diagnosis: Dementia with Lewy bodies[ICD10: G31.83] Diagnosis: Other hallucinations[ICD10: R44.2] Diagnosis: Mixed hyperlipidemia[ICD10: E78.2] Diagnosis: Encounter for immunization[ICD10: Z23] Allie Mcneill MD, [facility] CPT-4: 61215 09/16/2015 ([id number]) 99451 EST. PATIENT, LEVEL IV Diagnosis: HYPERLIPIDEMIA[ICD9: 272.4] Diagnosis: DEMEN NOS 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[ICD9: 294.20] Diagnosis: LEWY BODY DEMENTIA[ICD9: 331.82] Diagnosis: VACCIN FOR INFLUENZA[ICD9: V04.81] Allie Mcneill MD, [facility] CPT-4: 40529 07/01/2015 ([id number]) 86316 EST. PATIENT, LEVEL IV Diagnosis: HYPERLIPIDEMIA[ICD9: 272.4] Diagnosis: Dementia[ICD9: 294.20] Diagnosis: LEWY BODY DEMENTIA[ICD9: 331.82] Allie Mcneill MD [facility] CPT-4: 30272 02/25/2015 ([id number]) 29565 EST. PATIENT, LEVEL IV Diagnosis: HYPERLIPIDEMIA[ICD9: 272.4] Diagnosis: Dementia[ICD9: 294.20] Diagnosis: LEWY BODY DEMENTIA[ICD9: 331.82] Allie Mcneill MD, [facility] CPT-4: 24149 11/19/2014 ([id number]) 97208 EST. PATIENT, LEVEL IV Diagnosis: HYPERLIPIDEMIA[ICD9: 272.4] Diagnosis: LEWY BODY DEMENTIA[ICD9: 331.82] Allie Mcneill MD [facility] CPT-4: 57525 08/13/2014 ([id number]) 46821 EST. PATIENT, LEVEL IV Diagnosis: LEWY BODY DEMENTIA[ICD9: 331.82] Diagnosis: Psychosis[ICD9: 298.9] Allie Mcneill MD, [facility] CPT-4: 50830 06/11/2014 ([id number]) 08346 EST. PATIENT, LEVEL III Diagnosis: Lewy body dementia with behavioral disturbance[ICD9: 331.82] Diagnosis: Ulcer of gingiva[ICD9: 523.8] Shari Mcneill MD, [facility] CPT-4: 57145 04/16/2014 ([id number]) 36572 EST. PATIENT, LEVEL IV Diagnosis: Shingles[ICD9: 053.9] Diagnosis: Oral aphthae[ICD9: 528.2] Diagnosis: Yeast infection of the skin[ICD9: 112.3] Allie Mcneill MD, [facility] CPT-4: 40536 03/12/2014 ([id number]) 85618 EST. PATIENT, LEVEL IV Diagnosis: DEMEN NOS 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[ICD9: 294.20] Diagnosis: LEWY BODY DEMENTIA[ICD9: 331.82] Diagnosis: Impacted cerumen of both ears[ICD9: 380.4] Diagnosis: Weight loss[ICD9: 783.21] Diagnosis: Shingles rash[ICD9: 053.9] Allie Mcneill MD, [facility] CPT- 4: 18362 02/26/2014 ([id number]) 89423 EST. PATIENT, LEVEL IV Diagnosis: SENILE DELUSION[ICD9: 290.20] Diagnosis: LEWY BODY DEMENTIA[ICD9: 331.82] Diagnosis: HALLUCINATIONS[ICD9: 780.1] Diagnosis: PSYCHOSIS[ICD9: 298.9] Allie Mcneill MD, [facility] CPT-4: 19566 11/27/2013 ([id number]) 39866 EST. PATIENT, LEVEL IV Diagnosis: LEWY BODY DEMENTIA[ICD9: 331.82] Diagnosis: HALLUCINATIONS[ICD9: 780.1] Diagnosis: PSYCHOSIS[ICD9: 298.9] Allie Mcneill MD, [facility] CPT-4: 91109 10/16/2013 ([id number]) 76442 EST. PATIENT, LEVEL III Diagnosis: LEWY BODY DEMENTIA[ICD9: 331.82] Diagnosis: HALLUCINATIONS[ICD9: 780.1] Allie Mcneill MD, [facility] CPT- 4: 18278 07/10/2013 ([id number]) 43407 EST. PATIENT, LEVEL IV Diagnosis: LEWY BODY DEMENTIA[ICD9: 331.82] Diagnosis: HALLUCINATIONS[ICD9: 780.1] Diagnosis: Dehydration[ICD9: 276.51] Diagnosis: Dementia[ICD9: 294.20] Allie Mcneill MD, [facility] CPT-4: 15685 01/06/2013 20352 EST. PATIENT, LEVEL III Diagnosis: Candidiasis of breast[ICD9: 112.2] Diagnosis: Seborrheic keratosis[ICD9: 702.19] Diagnosis: Dry skin[ICD9: 782.9] Shari Mcneill MD, [facility] CPT-4: 05518 08/08/2012 ([id number] 36124 EST. PATIENT, LEVEL IV Diagnosis: LEWY BODY DEMENTIA[ICD9: 331.82] Diagnosis: HALLUCINATIONS[ICD9: 780.1] Allie Mcneill MD, [facility] CPT- 4: 62024 05/23/2012 ([id number]) 28748 EST. PATIENT, LEVEL IV Diagnosis: HALLUCINATIONS[ICD9: 780.1] Diagnosis: LEWY BODY DEMENTIA[ICD9: 331.82] Allie Mcneill MD, [facility] CPT-4: 11653 04/04/2012 ([id number] 02278 EST. PATIENT, LEVEL IV Diagnosis: Lewy body dementia with behavioral disturbance[ICD9: 331.82] Diagnosis: Hallucinations[ICD9: 780.1] Diagnosis: INSOMNIA IN OTHER DIS[ICD9: 327.01] Allie Mcneill MD, [facility] CPT-4: 78048 03/21/2012 Plan of Care Planned Activity Notes [...] response to medications. 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 08/15/2018 Appointment: [facility] [phone] [facility] (15 min) Moderate 08/15/2018 Patient Education: Patient Medication Summary Completed 08/15/2018 Visit Plan: Hypertension - well controlled - [...] - stable - continue with current management. - Hx of cad - stop plavix. 06/06/2018 Appointment: [facility] [phone] [facility] [place] (15 min) Moderate 06/06/2018 Patient Education: Patient Medication Summary Completed 06/06/2018 Visit Plan: Hypertension - well controlled - [...] - stable - continue with current management. 02/28/2018 Appointment: [facility] [phone] [facility] [place] (15 min) Moderate 02/28/2018 Patient Education: Patient Medication Summary Completed 02/28/2018 Visit Plan: Hypertension - well controlled - [...] stable - continue with current management. 11/22/2017 Visit Plan: Hypertension - well controlled - [...] stable - continue with current management. 11/22/2017 Appointment: [facility] [phone] [facility] [place] (15 min) Moderate 11/22/2017 Patient Education: Patient Medication Summary Completed 11/22/2017 Appointment: [facility] [phone] [facility] [place] (15 min) Moderate 11/15/2017 Visit Plan: Hypertension [...] 4 months 08/16/2017 Appointment: Allie Mcneill WPtel: [facility] (15 min) Moderate 08/16/2017 Patient Education: Patient [...] level, symptoms. 05/17/2017 Appointment: Allie Mcneill WPtel: [facility] (15 min) Moderate 05/17/2017 Patient Education: Patient [...] at home. 04/25/2017 Appointment: Allie Mcneill WPtel: [facility] [place] (15 min) Moderate 04/25/2017 Patient Education: Patient Medication Summary Completed 04/25/2017 Appointment: Allie Mcneill WPtel: [facility] (15 min) Moderate 04/19/2017 Visit Plan: Dementia with Lewy body - pt doing well, per her daughter her mood is stable, she has no current hallucinations either auditory or visual. Chronic Depression and anxiety - the pt has symptoms of chronic anxiety and depression - will stop the Trazodone and start on nuedexta - continue with plans for Trazodone taper. 03/22/2017 Appointment: Mariya Mcneilly WPtel: [phone] [facility] (15 min) Moderate 03/22/2017 Patient Education: [...] current medications. 12/21/2016 Appointment: Allie Mcneill WPtel: [phone] [facility] (15 min) Moderate 12/21/2016 Patient Education: Patient [...] current medications. 09/21/2016 Appointment: Allie Mcneill WPtel: [facility] [place] (15 min) Moderate 09/21/2016 Patient Education: Patient [...] current medications. 06/22/2016 Appointment: [facility]ill [facility] [phone] [facility] [place] (15 min) Moderate 06/22/2016 Patient Education: Patient [...] psychosis. 03/23/2016 Appointment: [phone] (15 min) Moderate 03/23/2016 Patient Education: Patient [...] problem. 12/16/2015 Appointment: [facility] [phone] [place] [place] (15 min) Moderate 12/16/2015 Patient Education: [...] medications 09/16/2015 Appointment: [facility] [phone] [place] [place] (15 min) Moderate 09/16/2015 Patient Education: [...] underlying psychosis. 07/01/2015 Appointment: Allie Mcneill WPtel: [address] [place], [place] [address] Follow up 07/01/2015 Patient Education: Patient Medication [...] 1 month then stop the Marinol as [place] has had resolution of her weight loss. [...] -start casi 11/19/2014 Appointment: Allie Mcneill WPtel: [facility] Follow up 11/19/2014 Patient Education: Patient Medication Summary Completed 11/19/2014 Appointment: Allie Mcneill WPtel: [facility] [place] Follow up 11/12/2014 Appointment: Allie Mcneill WPtel: [facility] Follow up 09/10/2014 Visit Plan: Hyperlipidemia [...] for effectiveness. 08/13/2014 Appointment: Allie Mcneill WPtel: [facility] [place] Follow [place] 08/13/2014 Patient Education: Patient Medication [...] risperdal dose at this time. 06/11/2014 Appointment: lAlie Mcneill [facility]el[phone] [facility] [place] [place] Follow up 06/11/2014 Patient Education: Patient [...] 10 days. 03/12/2014 Appointment: Allie Mcneill WPtel: [facility] [place] Follow up 03/12/2014 Patient Education: Patient [...] considered contagious. 02/26/2014 Appointment: [facility] [phone] [place] [place] Follow up 02/26/2014 Patient Education: Patient Medication Summary Completed 02/26/2014 Appointment: [phone] [place] [place] Follow up 02/04/2014 Appointment: Allie Mcneilltel: [facility] [place] Follow up 01/19/2014 Visit Plan: Dementia [...] SKILLED NURSING. 11/27/2013 Appointment: Allie Mcneill WPtel: [address] [place], [place] [id number] [place] Follow up 11/27/2013 Patient Education: Patient [...] not improve. 10/16/2013 Appointment: Allie Mcneill WPtel: [facility] [place] [place] Follow up 10/16/2013 Patient Education: Patient Medication Summary Completed 10/16/2013 Appointment: Shari Parada [facility]Ptel[facility] [place] Lab Draw 07/31/2013 Patient Education: Patient Medication Summary Completed 07/31/2013 Appointment: Allie Mcneill WPtel: [facility] [place] Lab Draw 07/30/2013 Visit Plan: Lewy body dementia - symptoms improved on higher dose of risperdol - continue to monitor symptoms - family to call if hallucinations worsen again. 07/10/2013 Appointment: Allie Mcneill WPtel: [facility] Follow [place] 07/10/2013 Patient Education: Patient Medication [...] effecitveness. 06/12/2013 Appointment: [facility]ill [phone] [facility] [place] Follow up 06/12/2013 Patient Education: Patient Medication [...] medications. 02/13/2013 Appointment: [facility] [place]ill [facility] [phone] [facility] [place] [place] Follow up 02/13/2013 Patient Education: Patient [...] check UA. 01/06/2013 Appointment: [facility]ill [phone] [place] [place] Follow up 01/06/2013 Patient Education: Patient Medication [...] UA. 09/19/2012 Appointment: Allie Mcneill WPtel: [phone] [facility] Established Patient Preventative visit 09/19/2012 Patient Education: Patient Medication Summary Completed 09/19/2012 Visit Plan: Candidiasis of breasts-discussed natural and expected course of this diagnosis and to alert me if sympotms do not follow expected course, or if any worse. Keep areas clean and dry. RX sent to patient' s pharmacy and instructed on use. Seborrheic mvsklmcbr-njnlqoy-dnurweurg eucerin cream as needed to back Dry srwe-ypbp-nnosamfgg moisturizer such as eucerin to face-call if worsens 08/08/2012 Appointment: Shari Parada WPtel: [phone] [phone] [place] rash 08/08/2012 Patient Education: Patient Medication Summary Completed 08/08/2012 Appointment: Allie Mcneill WPtel: [phone] [facility] [place] Injection 07/25/2012 Patient Education: Patient Medication [...] her rest. 05/23/2012 Appointment: Allie Mcneill WPtel: [phone] [facility] [place] Follow up 05/23/2012 Patient Education: Patient Medication Summary Completed 05/23/2012 Appointment: [phone] [place] Lab Draw 04/05/2012 Patient Education: [...] dosing regimen. 04/04/2012 Appointment: [facility]ill [phone] [facility] [place] Follow [place] 04/04/2012 Patient Education: Patient Medication [...] are opened. 03/21/2012 Appointment: [facility] Mcneill [facility]Ptel[phone] [place] [place] New Patient 03/21/2012 Patient Education: Patient Medication Summary Completed 03/21/2012 Instructions Comment . Lewy Body's Dementia - Pt with [...] allergies with nasal drainage -start casi . Hypertension - well controlled - continue [...] stable - continue with current management. . Hypertension - well controlled - continue [...] 1 month then stop the Marinol as [place] has had resolution of her weight loss. Seasonal allergies with nasal drainage -start casi . Dementia with Behaviors - I have [...] in the current dosing regimen. . Lewy Body's Dementia - Pt with [...] on the patient's chronic medical problem. . Dementia with Behaviors - I have [...] - stable - continue with current management. - Hx of cad - stop plavix. . Lewy Body Dementia - pt has [...] the home doors are opened. . Lewy body Dementia - Pt with [...] situational exposure. No change in current medications. REMOVE UPPER AND LOWER DENTURES FOR THE [...] patient's pharmacy and instructed on use. Seborrheic zqhmkfncp-blhyzzs-tnusscaki eucerin cream as needed to back Dry dgmc-sexf-plxlhdcqi moisturizer such as eucerin to face-call if [...] treatment under breasts x 10 days. . Psychosis - increase Risperdal to 0.5mg bid Hypertension - well controlled - continue with current medications, continue with no added salt diet. Pt has been encouraged to exercise daily. The pt has been advised to call the office if there are any acute concerns about change in blood pressure readings at home. . Hypertension - well controlled - continue [...] stable - continue with current management. . Hypertension - well controlled - continue [...] stable - continue with current management. . Lewy Body Dementia - Pt with [...] the medications for effectiveness. . 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 Chronic Depression and anxiety - the pt has symptoms of chronic anxiety and depression - will stop the Trazodone and start on nuedexta - continue with plans for Trazodone taper. . Lewy Body Dementia - pt with [...] pt is to be considered contagious. . Hypertension - well controlled - continue [...] response to medications. 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 . Hypertension - well controlled - continue [...] closely monitor the medications for effecitveness. . Dementia with Behaviors - I have [...] afternoon disturbances of her rest. . Lewy Body Dementia - Pt with [...]
--- OUTSIDE RECORDS SUMMARY | 2018-10-02 18:26 | XMS REPORT | CCD ---
Author Author Allie Mcneill Organization Allie Mcneill MD, [facility] Address [address] [place] [address] Phone Care Team Providers Care Finance Insurance Manager Name Role Phone PP Unavailable CCM Unavailable Summary Purpose Interface Exchange Insurance Providers Payer name Policy type / Coverage type Covered green party ID Effective Begin Date Effective End Date HUMANA CLAIMS Commercial Insurance [id number] Unknown Family history Daughter Diagnosis Age At [...] Codes Description Effective Dates Living arrangements Unknown Custodial [facility] 12/21/2016 Marital status Unknown 03/21/2012 Number of children Unknown 5 03/21/[address]: 114350219 Nonsmoker 03/21/[address]: 794778135 Never drinks alcohol 03/21/2012 Allergies, Adverse Reactions, [...] Depakote ER 250 mg tablet,extended release RxNorm: 2159490 TAKE 1 TABLET BY MOUTH TWICE DAILY 08/14/2018 03/11/2019 Active Generic For:DEPAKOTE ER 250MG 08/14/2018 8:56:28 AM Vitamin B-12 500 mcg tablet RxNorm: 250072 1 Tablet(s) PO daily except [place] and nour 07/24/2018 No Stop Date Active Exelon Patch 9.5 mg/24 hr transdermal RxNorm: 936325 APPLY ONE (1) PATCH ONCE DAILY. 07/04/2018 10/31/2018 Active 07/04/2018 3:15:29 PM Depakote ER 250 mg tablet,extended release RxNorm: 6790551 1 Tablet(s) PO BID 06/18/2018 08/13/2018 Inactive Namenda 10 mg tablet RxNorm: 423680 TAKE 1 TABLET BY MOUTH TWICE DAILY 06/13/2018 12/09/2018 Active Generic For:NAMENDA 10MG TAB 06/13/2018 9:01:14 AM losartan 50 mg tablet RxNorm: 151906 TAKE 1 TABLET BY MOUTH EVERY DAY 06/03/2018 12/29/2018 Active Generic For:*COZAAR 50MG 06/03/2018 9:11:33 AM Flonase 50 mcg/actuation nasal spray,suspension RxNorm: 8898121 INSTILL ONE SPRAY IN EACH NOSTRIL TWICE DAILY (MORNING AND EVENING) 05/28/2018 08/25/2018 Active Generic For:FLONASE SPR 0.05% 05/28/2018 2:26:52 PM Exelon Patch 9.5 mg/24 hr transdermal RxNorm: 622502 APPLY ONE (1) PATCH ONCE DAILY. 03/12/2018 07/03/2018 Inactive 03/12/2018 2:27:46 PM Celexa 20 mg tablet RxNorm: 956511 1/2 Tablet(s) PO daily 08/26/2018 Active Generic For:CELEXA 20MG 12/17/2017 3:01:05 PM Depakote ER 250 mg tablet,extended release RxNorm: 5199546 1 Tablet(s) PO daily 02/28/2018 06/17/2018 Inactive Flonase 50 mcg/actuation nasal spray,suspension RxNorm: 2676287 INSTILL ONE SPRAY IN EACH NOSTRIL TWICE DAILY (MORNING AND EVENING) 01/09/2018 04/08/2018 Inactive Generic For:FLONASE SPR 0.05% 01/07/2018 2:08:18 PM Keflex 500 mg capsule RxNorm: 150294 1 Capsule(s) PO TID 201701/06/2018 Inactive probiotic BID while on antibiotic Celexa 20 mg tablet RxNorm: 094509 TAKE 1 TABLET BY MOUTH EVERY DAY 12/17/2017 02/27/2018 Inactive Generic For:CELEXA 20MG 12/17/2017 3:01:05 PM Namenda 10 mg tablet RxNorm: 373752 TAKE 1 TABLET BY MOUTH TWICE DAILY 12/07/2017 06/04/2018 Inactive Generic For:NAMENDA 10MG TAB 12/07/2017 1:43:23 PM clopidogrel 75 mg tablet RxNorm: 216604 TAKE 1 TABLET BY MOUTH EVERY DAY 11/28/2017 06/05/2018 Inactive Generic For:*PLAVIX 75MG 11/28/2017 9:43:44 AM Ativan 0.5 mg tablet RxNorm: 433375 1 Tablet(s) PO Q6 as needed and 1/2 Tablet PO Q2 as needed 11/22/2017 No Stop Date Active Exelon Patch 9.5 mg/24 hr transdermal RxNorm: 764628 APPLY ONE (1) PATCH ONCE DAILY. 11/12/2017 03/11/2018 Inactive losartan 50 mg tablet RxNorm: 206927 TAKE 1 TABLET BY MOUTH EVERY DAY 11/05/2017 06/02/2018 Inactive Generic For:*COZAAR 50MG 11/02/2017 2:22:04 PM Exelon Patch 9.5 mg/24 hr transdermal RxNorm: 491817 APPLY ONE (1) PATCH ONCE DAILY. 10/19/2017 11/11/2017 Inactive Depakote 500 mg tablet,delayed release RxNorm: 6946184 1 Tablet(s) PO daily 10/15/2017 02/27/2018 Inactive Protonix 20 mg tablet,delayed release RxNorm: 938412 TAKE 1 TABLET BY MOUTH DAILY 08/06/2017 03/03/2018 Inactive Generic For:*PROTONIX 20MG 08/06/2017 2:35:53 PM Ativan 0.5 mg tablet RxNorm: 052337 1/2 Tablet(s) PO Q6 PRN as needed 1/2 po q 2 pm 08/02/2017 09/30/2017 Inactive Depakote 500 mg tablet,delayed release RxNorm: 3146486 1 Tablet(s) PO daily 06/22/2017 10/14/2017 Inactive Exelon Patch 9.5 mg/24 hr transdermal RxNorm: 949051 APPLY ONE (1) PATCH ONCE DAILY. 05/14/2017 10/10/2017 Inactive Protonix 20 mg tablet,delayed release RxNorm: 909132 1 Tablet(s) PO daily 05/08/2017 08/05/2017 Inactive Risperdal 0.25 mg tablet RxNorm: 126962 Tablet(s) UD .25 in am and .5 in hs and .25 prn for psychosis/hallucinations 04/26/2017 05/16/2017 Inactive Nuedexta 20 mg-10 mg capsule RxNorm: 7106574 1 Capsule(s) PO daily x 7 days then go to one cap BID 03/22/2017 04/24/2017 Inactive Ativan 0.5 mg tablet RxNorm: 349508 1/2 Tablet(s) PO Q6 PRN as needed 1/2 po q 2 pm 03/21/2017 08/01/2017 Inactive Keflex 500 mg capsule RxNorm: 285024 1 Capsule(s) PO TID 201603/05/2017 Inactive Keflex 500 mg capsule RxNorm: 399900 1 Capsule(s) PO TID 201603/15/2017 Inactive Ativan 0.5 mg tablet RxNorm: 032209 1/2 Tablet(s) PO Q6 PRN as needed 1/2 po q 2 pm 02/28/2017 03/20/2017 Inactive Protonix 20 mg tablet,delayed release RxNorm: 500863 1 Tablet(s) PO daily 02/07/2017 05/07/2017 Inactive Protonix 20 mg tablet,delayed release RxNorm: 987267 1 Tablet(s) PO daily 02/07/2017 02/06/2017 Inactive amoxicillin 500 mg capsule RxNorm: 968095 1 Capsule(s) PO TID 01/11/2017 01/10/2017 Inactive Patient at [facility] amoxicillin 500 mg capsule RxNorm: 257990 1 Capsule(s) PO TID 01/11/2017 01/17/2017 Inactive Patient at [facility] Exelon Patch 9.5 mg/24 hr transdermal RxNorm: 267824 APPLY ONE (1) PATCH ONCE DAILY. 12/14/2016 05/12/2017 Inactive Flonase 50 mcg/actuation nasal spray,suspension RxNorm: 6508737 1 [place] each nostril NASAL BID 10/30/2016 11/28/2016 Inactive 2 spray each nostril Namenda 10 mg tablet RxNorm: 201454 1 Tablet(s) PO BID 201609/04/2017 Inactive Risperdal 0.25 mg tablet RxNorm: 415457 1 Tablet(s) PO QHS 01/22/2017 Inactive trazodone 50 mg tablet RxNorm: 159430 1.5 Tablet(s) PO QHS 03/29/2017 Inactive Exelon Patch 9.5 mg/24 hr transdermal RxNorm: 379785 APPLY ONE (1) PATCH ONCE DAILY. 07/18/2016 12/13/2016 Inactive trazodone 50 mg tablet RxNorm: 873115 1.5 Tablet(s) PO QHS 09/24/2016 Inactive Exelon Patch 9.5 mg/24 hr transdermal RxNorm: 919324 APPLY ONE (1) PATCH ONCE DAILY. 05/15/2016 05/14/2016 Inactive Exelon Patch 9.5 mg/24 hr transdermal RxNorm: 257827 APPLY ONE (1) PATCH ONCE DAILY. 05/15/2016 10/18/2017 Inactive Risperdal 0.25 mg tablet RxNorm: 124323 1 Tablet(s) PO QHS 11/201509/24/2016 Inactive Exelon Patch 9.5 mg/24 hr transdermal RxNorm: 408870 APPLY ONE (1) PATCH ONCE DAILY. 2016 No Stop Date Active Exelon Patch 9.5 mg/24 hr transdermal RxNorm: 849888 APPLY ONE (1) PATCH ONCE DAILY. 2016 02/21/2016 Inactive trazodone 50 mg tablet RxNorm: 664010 1.5 Tablet(s) PO QHS 01/201605/28/2016 Inactive simvastatin 20 mg tablet RxNorm: 556522 1 Tablet(s) PO daily 11/21/2017 Inactive clopidogrel 75 mg tablet RxNorm: 867093 1 Tablet(s) PO daily 01/31/2017 Inactive Celexa 20 mg tablet RxNorm: 635129 1 Tablet(s) PO daily 201501/31/2017 Inactive [place] Instant Breakfast Juice Drink oral liquid RxNorm: PO QHS after meals 02/02/2016 12/20/2016 Inactive Flonase 50 mcg/actuation nasal spray,suspension RxNorm: 5662959 1 [place] each nostril NASAL BID 12/02/2015 03/30/2016 Inactive 2 spray each nostril Namenda 10 mg tablet RxNorm: 306101 1 Tablet(s) PO BID 201510/06/2016 Inactive Risperdal 0.25 mg tablet RxNorm: 265403 1 Tablet(s) PO QHS 02/29/2016 Inactive Exelon Patch 9.5 mg/24 hr transdermal RxNorm: 715572 1 Patch TD daily 1 Patch TD daily 07/23/2015 01/18/2016 Inactive Exelon Patch 9.5 mg/24 hr transdermal RxNorm: 793153 1 Patch TD daily 07/20/2015 07/22/2015 Inactive Celexa 20 mg tablet RxNorm: 041632 1 Tablet(s) PO daily 201402/06/2016 Inactive Flonase 50 mcg/actuation nasal spray,suspension RxNorm: 438829 1 [place] each nostril NASAL BID 06/04/2015 10/01/2015 Inactive 2 spray each nostril Risperdal 0.25 mg tablet RxNorm: 264944 1 Tablet(s) PO QHS 08/01/2015 Inactive Exelon Patch 9.5 mg/24 hr transdermal RxNorm: 695648 1 Patch TD daily 04/28/2015 07/19/2015 Inactive Vitamin D3 2,000 unit capsule RxNorm: 833604 1 Capsule(s) PO daily 02/10/2015 03/15/2016 Inactive Calcium 600 + D(3) 600 mg (1,500 mg)-400 unit tablet RxNorm: 898816 1 Tablet(s) PO daily 02/09/2015 No Stop Date Active Celexa 20 mg tablet RxNorm: 988546 1 Tablet(s) PO daily 201412/09/2014 Inactive Celexa 20 mg tablet RxNorm: 938595 1 Tablet(s) PO daily 201407/07/2015 Inactive Flonase 50 mcg/actuation nasal spray,suspension RxNorm: 575374 1 [place] each nostril NASAL BID 11/27/2014 03/26/2015 Inactive 2 spray each nostril Amy Allergy 180 mg tablet RxNorm: 749325 1 Tablet(s) PO daily 11/19/2014 12/18/2014 Inactive Marinol 2.5 mg capsule RxNorm: 354678 1 Capsule(s) PO TID 11/1603/15/2015 Inactive [SAVINGS FOR UNINSURED PATIENTS -- BIN:[id number], PCN: [id number], Group: [id number], ID# [id number], Process claim through [facility], for questions: . THIS IS NOT INSURANCE.] Namenda 10 mg tablet RxNorm: 772069 1 Tablet(s) PO BID 201402/08/2015 Inactive Marinol 2.5 mg capsule RxNorm: 770706 1 Capsule(s) PO TID 10/1211/10/2014 Inactive Namenda 10 mg tablet RxNorm: 529131 1 Tablet(s) PO BID 201410/11/2014 Inactive Flonase 50 mcg/actuation nasal spray,suspension RxNorm: 779447 2 [place] NASAL BID 08/17/2014 11/26/2014 Inactive 2 spray each nostril Exelon Patch 9.5 mg/24 hr transdermal RxNorm: 166663 1 Patch TD daily 07/10/2014 10/07/2014 Inactive Risperdal 0.25 mg tablet RxNorm: 886153 1 Tablet(s) PO QHS 05/201405/03/2015 Inactive Namenda XR 14 mg capsule sprinkle,ER 24hr RxNorm: 483309 1 Capsule(s) PO daily 04/13/2014 10/11/2014 Inactive acyclovir 800 mg tablet RxNorm: 356502 1 Tablet(s) PO TID 03/1203/18/2014 Inactive nystatin 100,000 unit/gram topical powder RxNorm: 188733 1 Gram(s) TOP QID apply to tissue under breasts and if needed other folded skin ears with evidence of yeast infection 03/12/2014 03/21/2014 Inactive simvastatin 20 mg tablet RxNorm: 330217 1 Tablet(s) PO daily 02/15/2014 Inactive trazodone 50 mg tablet RxNorm: 622361 1 1/2 Tablet(s) PO daily 02/16/2014 02/15/2014 Inactive trazodone 50 mg tablet RxNorm: 952230 1 1/2 Tablet(s) PO daily 02/16/2014 03/17/2014 Inactive clopidogrel 75 mg tablet RxNorm: 703978 1 Tablet(s) PO daily 02/10/2015 Inactive Exelon 4.6 mg/24 hour transdermal 24 hour patch RxNorm: 360489 1 TD daily 02/16/2014 03/17/2014 Inactive simvastatin 20 mg tablet RxNorm: 304324 1 Tablet(s) PO daily 06/15/2014 Inactive Vitamin B-12 2,500 mcg sublingual tablet RxNorm: 394296 1 Tablet(s) SL daily 01/22/2014 No Stop Date Active Ativan 0.5 mg tablet RxNorm: 891585 1/2 Tablet(s) PO Q6 PRN 1/2 po q 2 pm and 1 po q 6 hours prn anxiety 10/16/20132013 Inactive Cipro 500 mg tablet RxNorm: 628506 1 Tablet(s) PO BID correction 08/04/2013 08/08/2013 Inactive Cipro 500 mg tablet RxNorm: 750826 2 Tablet(s) PO BID 201208/03/2013 Inactive Cipro 500 mg tablet RxNorm: 422612 2 Tablet(s) PO BID 201207/31/2013 Inactive Influenza Virus Vaccine 0.5 mL RxNorm: IM 07/07/2013 07/07/2013 Inactive clopidogrel 75 mg tablet RxNorm: 374289 1 Tablet(s) PO daily 02/15/2014 Inactive risperidone 0.5 mg tablet RxNorm: 602568 1 Tablet(s) PO TID 01/21/2014 Inactive atorvastatin 20 mg tablet RxNorm: 945061 1 Tablet(s) PO QPM 01/21/2014 Inactive TAKE ONE TABLET BY MOUTH EVERY DAY risperidone 0.5 mg tablet RxNorm: 618967 1 Tablet(s) PO TID 02/201306/24/2013 Inactive Risperdal 0.25 mg tablet RxNorm: 969222 Tablet(s) PO TAKE 1 TABLET AT NOON AND TAKE 1 TABLET AT NIGHT IF NEEDED FOR HALLUCINATIONS 201206/11/2013 Inactive clopidogrel 75 mg tablet RxNorm: 746327 1 Tablet(s) PO daily 06/24/2013 Inactive Risperdal 0.25 mg tablet RxNorm: 978649 1 Tablet(s) PO noon one at noon and one in night if needed for hallucinations. 09/06/2012 01/01/2013 Inactive atorvastatin 20 mg tablet RxNorm: 988066 1 Tablet(s) PO QPM 06/24/2013 Inactive TAKE ONE TABLET BY MOUTH EVERY DAY risperidone 0.5 mg tablet RxNorm: 217159 1 Tablet(s) PO BID 06/11/2013 Inactive atorvastatin 20 mg tablet RxNorm: 967045 Tablet(s) PO 201109/05/2012 Inactive TAKE ONE TABLET BY MOUTH EVERY DAY nystatin 100,000 unit/g Topical Powder RxNorm: 301572 1 Gram(s) TOP BID 08/08/2012 08/27/2012 Inactive atorvastatin 20 mg tablet RxNorm: 502382 Tablet(s) PO 201108/11/2012 Inactive TAKE ONE TABLET BY MOUTH EVERY DAY risperidone 0.5 mg tablet RxNorm: 626301 1 Tablet(s) PO BID 03/201207/12/2012 Inactive Risperdal 0.25 mg tablet RxNorm: 404653 1 Tablet(s) PO noon one at noon and one in night if needed for hallucinations. 06/13/2012 09/05/2012 Inactive clopidogrel 75 mg tablet RxNorm: 294603 1 Tablet(s) PO daily 09/05/2012 Inactive atorvastatin 20 mg tablet RxNorm: 201120 1 Tablet(s) PO daily 05/10/2012 06/08/2012 Inactive Cipro 500 mg Tab RxNorm: 807051 1 Tablet(s) PO BID 201104/11/2012 Inactive Risperdal 0.25 mg tablet RxNorm: 762760 1 Tablet(s) PO noon one at noon and one in night if needed for hallucinations. 03/22/2012 06/12/2012 Inactive Risperdal 0.25 mg Tab RxNorm: 872958 1 Tablet(s) PO noon one at noon and one in night if needed for hallucinations. 03/21/2012 03/21/2012 Inactive Vitamin D3 2,000 unit tablet RxNorm: 783394 1 Tablet(s) PO daily No Start Date Active Protonix 20 mg tablet,delayed release RxNorm: 927828 1 Tablet(s) PO daily No Start Date Active famotidine 20 mg tablet RxNorm: 190244 1 Tablet(s) PO QHS No Start Date Active melatonin 3 mg tablet RxNorm: 812866 2 Tablet(s) PO QHS No Start Date Active Tylenol 500 mg RxNorm : 1 -2 Tablet(s) PO Q6 as needed pain or fever No Start Date Active Vitamin D3 2,000 unit capsule RxNorm: 910485 1 Capsule(s) PO daily No Start Date 02/09/2015 Inactive trazodone 50 mg tablet RxNorm: 684786 1.5 Tablet(s) PO QHS No Start Date 02/08/2016 Inactive Trazadone 25 mg RxNorm : 3 PO QHS No Start Date 02/15/2014 Inactive [place] Instant Breakfast Juice Drink oral liquid RxNorm: PO TID after meals No Start Date 02/01/2016 Inactive Vitamin B-12 2,500 mcg sublingual tablet RxNorm: 221287 1 Tablet(s) SL daily No Start Date 01/21/2014 Inactive Tums Calcium for Life Bone 300 mg (750 mg) chewable tablet RxNorm: 119652 2 Tablet (s) PO daily No Start Date 02/12/2013 Inactive calcium 300 mg chewable tablet RxNorm: 1 Tablet(s) PO daily No Start Date 12/03/2015 Inactive with vitamin d Marinol 2.5 mg capsule RxNorm: 220563 1 Capsule(s) PO ac tid No Start Date 03/11/2014 Inactive Namenda XR 14 mg capsule sprinkle,ER 24hr RxNorm: 200457 1 Capsule(s) PO daily No Start Date 04/12/2014 Inactive clopidogrel 75 mg tablet RxNorm: 320237 1 Tablet(s) PO daily No Start Date 05/09/2012 Inactive Namenda 5 mg Tab RxNorm: 024504 1 Tablet(s) PO BID No Start Date 04/12/2014 Inactive Depakote 500 mg tablet,delayed release RxNorm: 6463825 1 Tablet(s) PO daily No Start Date 06/21/2017 Inactive Zocor 20 mg tablet RxNorm: 118852 1 Tablet(s) PO daily No Start Date 08/12/2014 Inactive losartan 50 mg tablet RxNorm: 979588 1 Tablet(s) PO daily No Start Date 11/04/2017 Inactive Vitamin B-12 500 mcg tablet RxNorm: 764857 1 Tablet(s) PO daily No Start Date 07/23/2018 Inactive Depakote ER 250 mg tablet,extended release RxNorm: 4818759 1 Tablet(s) PO BID No Start Date 12/31/2013 Inactive Calcium 600 + D(3) oral RxNorm: 151088 oral No Start Date 02/08/2015 Inactive risperidone 0.5 mg tablet RxNorm: 423236 1 Tablet(s) PO BID No Start Date 06/12/2012 Inactive lorazepam 0.5 mg tablet RxNorm: 825437 1 Tablet(s) PO daily No Start Date 11/21/2017 Inactive atorvastatin 20 mg tablet RxNorm: 459970 1 Tablet(s) PO daily No Start Date 05/09/2012 Inactive Flonase 50 mcg/actuation nasal spray,suspension RxNorm: 609369 2 [place] NASAL BID No Start Date 08/16/2014 Inactive 2 spray each nostril Exelon 4.6 mg/24 hour transdermal 24 hour patch RxNorm: 052403 1 TD daily No Start Date 02/15/2014 [...] depression 06/11/2014 skin lesion 04/16/2014 reported by longterm skin lesion 03/12/2014 weight loss 02/26/2014 medication follow up 11/27/2013 anxiety 10/16/2013 memory loss 07/10/2013 --Improved vaccination against influenza 07/07/2013 memory loss 06/12/2013 hallucination 02/13/2013 hallucination 01/06/2013 rash 09/19/2012 skin lesion 08/08/2012 vaccination against influenza 07/25/2012 memory loss 05/23/2012 hallucination 04/04/2012 dementia memory loss 03/21/2012 Results Observation Observation Code Item Item Code Result Date B12 Gnu591 B12 920.00 pg/ml 07/23/2018 Valproic Acid Gpx792 VALPROIC 48.0 ug/ml 07/03/2018 Hepatic Zpe730 ALBUMIN 3.7 g/dL 07/03/2018 Hepatic Dyi371 TPRO 6.3 g/dL 07/03/2018 Hepatic Zqv052 GLOB 2.6 g/dL 07/03/2018 Hepatic Iai728 A/G Ratio 1.4 Ratio 07/03/2018 Hepatic Lnt494 ALK PHOS 67 U/L 07/03/2018 Hepatic Tau723 ALT(SGPT) 5 U/L 07/03/2018 Hepatic Pfd200 AST(SGOT) 13 U/L 07/03/2018 Hepatic Slz943 BILI T 0.4 mg/dL 07/03/2018 Hepatic Rqw908 BILI D 0.1 mg/dL 07/03/2018 Hepatic Puv723 BILI I 0.3 mg/dL 07/03/2018 Urinalysis Ord28 [...] U-VOL VOLUME SUFFICIENT (10mL) 02/06/2018 Urinalysis Ord28 U-Com Urine saved if culture needed (specimen acceptable for 48 hours from collection if refrigerated) 02/06/2018 Urinalysis Ord28 U-Yeast NEGATIVE 02/06/2018 Cbc With Differential Ord2 WBC 6.53 K/ul 02/04/2018 Cbc With Differential Ord2 RBC 4.14 M/ul 02/04/2018 Cbc With Differential Ord2 HGB 12.1 g/dl 02/04/2018 Cbc With Differential Ord2 Neut% 58.4 % 02/04/2018 Cbc With Differential Ord2 HCT 38.5 % 02/04/2018 Cbc With Differential Ord2 MCV 93.0 fl 02/04/2018 Cbc With Differential Ord2 Lymph% 28.3 % 02/04/2018 Cbc With Differential Ord2 [place]% 10.1 % 02/04/2018 Cbc With Differential Ord2 [...] 1.85 K/ul 02/04/2018 Cbc With Differential Ord2 [place] ABS# 0.7 K/ul 02/04/2018 Cbc With Differential Ord2 Eos ABS# 0.2 K/ul 02/04/2018 Cbc With Differential Ord2 Baso ABS# 0.0 K/ul 02/04/2018 Lipid Ord30 CHOL 161 mg/dL 02/04/2018 Lipid Ord30 HDL 47.0 mg/dl 02/04/2018 Lipid Ord30 TRIG 109 mg/dL 02/04/2018 Lipid Ord30 LDL 92 mg/dL 02/04/2018 Lipid Ord30 C/HDL 3.4 Ratio 02/04/2018 Comp Metabolic Spm890 NA 139 mEq/L 02/04/2018 Comp Metabolic Xbw198 K 4.3 mEq/L 02/04/2018 Comp Metabolic Mxo187 CL 103 mEq/L 02/04/2018 Comp Metabolic Buf063 CO2 29.0 mEq/L 02/04/2018 Comp Metabolic Tlf098 ANION GAP 11 02/04/2018 Comp Metabolic Dwp965 GLUCOSE 84 mg/dL 02/04/2018 Comp Metabolic Eap385 Creat 0.5 mg/dL 02/04/2018 Comp Metabolic Trq805 eGFR 116 ml/min/1.73m2 02/04/2018 Comp Metabolic Rpm408 BUN 7 mg/dL 02/04/2018 Comp Metabolic Cxk638 B/C Ratio 13.2 Ratio 02/04/2018 Comp Metabolic Dux191 CALCIUM 8.4 mg/dL 02/04/2018 Comp Metabolic Rjb310 ALK PHOS 110 U/L 02/04/2018 Comp Metabolic Iqq521 AST(SGOT) 10 U/L 02/04/2018 Comp Metabolic Rfw296 ALT(SGPT) 7 U/L 02/04/2018 Comp Metabolic Des065 BILI T 0.3 mg/dL 02/04/2018 Comp Metabolic Pny485 ALBUMIN 3.4 g/dL 02/04/2018 Comp Metabolic Jpv528 TPRO 5.9 g/dL 02/04/2018 Comp Metabolic Ost327 GLOB 2.5 g/dL 02/04/2018 Comp Metabolic Est441 A/G Ratio 1.3 Ratio 02/04/2018 Comp Metabolic Szt642 Osmo 275 mOsmo 02/04/2018 Valproic Acid Mon419 VALPROIC 45.0 ug/ml 02/04/2018 Tsh Ord6 TSH (3rd IS) 2.26 uIU/mL 02/04/2018 Valproic Acid Kcz633 VALPROIC 40.0 ug/ml 01/17/2018 Hepatic Lsm196 ALBUMIN 3.7 g/dL 01/17/2018 Hepatic Icz331 TPRO 6.5 g/dL 01/17/2018 Hepatic Sfd418 GLOB 2.8 g/dL 01/17/2018 Hepatic Nio348 A/G Ratio 1.4 Ratio 01/17/2018 Hepatic Gdo007 ALK PHOS 137 U/L 01/17/2018 Hepatic Ujm511 ALT(SGPT) 7 U/L 01/17/2018 Hepatic Qop049 AST(SGOT) 11 U/L 01/17/2018 Hepatic Mdk242 BILI T 0.4 mg/dL 01/17/2018 Hepatic Xke030 BILI D 0.1 mg/dL 01/17/2018 Hepatic Jkb915 BILI I 0.3 mg/dL 01/17/2018 Valproic Acid Aid489 VALPROIC 38.0 ug/ml 01/03/2018 Cbc With Differential Ord2 WBC 7.46 K/ul 01/03/2018 Cbc With Differential Ord2 RBC 3.80 M/ul 01/03/2018 Cbc With Differential Ord2 HGB 11.1 g/dl 01/03/2018 Cbc With Differential Ord2 Neut% 55.4 % 01/03/2018 Cbc With Differential Ord2 HCT 35.2 % 01/03/2018 Cbc With Differential Ord2 Lymph% 26.0 % 01/03/2018 Cbc With Differential Ord2 MCV 92.6 fl 01/03/2018 Cbc With Differential Ord2 MCH 29.2 pg 01/03/2018 Cbc With Differential Ord2 [place]% 13.9 % 01/03/2018 Cbc With Differential Ord2 [...] 1.94 K/ul 01/03/2018 Cbc With Differential Ord2 [place] ABS# 1.0 K/ul 01/03/2018 Cbc With Differential [...] Ord15 CALCIUM 8.2 mg/dL 01/03/2018 Valproic Acid Lop854 VALPROIC 39.0 ug/ml 01/02/2018 Comp Metabolic Dmf124 NA 136 mEq/L 01/02/2018 Comp Metabolic Dth825 K 4.1 mEq/L 01/02/2018 Comp Metabolic Sgc472 CL 103 mEq/L 01/02/2018 Comp Metabolic Tkp991 CO2 24.0 mEq/L 01/02/2018 Comp Metabolic Ttm076 ANION GAP 13 01/02/2018 Comp Metabolic Gkv752 GLUCOSE 135 mg/dL 01/02/2018 Comp Metabolic Ske148 Creat 0.6 mg/dL 01/02/2018 Comp Metabolic Ujm043 eGFR 99 ml/min/1.73m2 01/02/2018 Comp Metabolic Ouo365 BUN 7 mg/dL 01/02/2018 Comp Metabolic Bmt251 B/C Ratio 11.5 Ratio 01/02/2018 Comp Metabolic Bhx073 CALCIUM 8.8 mg/dL 01/02/2018 Comp Metabolic Ykb112 ALK PHOS 75 U/L 01/02/2018 Comp Metabolic Lmu120 AST(SGOT) 13 U/L 01/02/2018 Comp Metabolic Tpn743 ALT(SGPT) 7 U/L 01/02/2018 Comp Metabolic Hrm500 BILI T 0.2 mg/dL 01/02/2018 Comp Metabolic Kpc299 ALBUMIN 3.9 g/dL 01/02/2018 Comp Metabolic Hpl805 TPRO 6.5 g/dL 01/02/2018 Comp Metabolic Gdb058 GLOB 2.6 g/dL 01/02/2018 Comp Metabolic Tub453 A/G Ratio 1.5 Ratio 01/02/2018 Comp Metabolic Kps804 Osmo 272 mOsmo 01/02/2018 Cbc With Differential Ord2 WBC 9.28 K/ul 01/02/2018 Cbc With Differential Ord2 RBC 4.14 M/ul 01/02/2018 Cbc With Differential Ord2 HGB 12.3 g/dl 01/02/2018 Cbc With Differential Ord2 HCT 38.0 % 01/02/2018 Cbc With Differential Ord2 Neut% 74.1 % 01/02/2018 Cbc With Differential Ord2 MCV 91.8 fl 01/02/2018 Cbc With Differential Ord2 Lymph% 13.4 % 01/02/2018 Cbc With Differential Ord2 MCH 29.7 pg 01/02/2018 Cbc With Differential Ord2 [place]% 11.5 % 01/02/2018 Cbc With Differential Ord2 MCHC 32.4 pg 01/02/2018 Cbc With Differential Ord2 Eos% 0.9 % 01/02/2018 Cbc With Differential Ord2 Baso% 0.1 % 01/02/2018 Cbc With Differential Ord2 PLT 275 K/ul 01/02/2018 Cbc With Differential Ord2 Neut ABS# 6.88 K/ul 01/02/2018 Cbc With Differential Ord2 RDW 14.4 % 01/02/2018 Cbc With Differential Ord2 Lymph ABS# 1.24 K/ul 01/02/2018 Cbc With Differential Ord2 [place] ABS# 1.1 K/ul 01/02/2018 Cbc With Differential [...] U-VOL VOLUME SUFFICIENT (10mL) 12/28/2017 Urinalysis Ord28 U-Com Culture to follow 12/28/2017 Urinalysis Ord28 U-Yeast NEGATIVE 12/28/2017 Valproic Acid Mlc428 VALPROIC 38.0 ug/ml 11/22/2017 Valproic Acid Uvv374 VALPROIC 44.0 ug/ml 10/22/2017 Hepatic Rno345 ALBUMIN 3.3 g/dL 10/22/2017 Hepatic Osy832 TPRO 5.7 g/dL 10/22/2017 Hepatic Bpw785 GLOB 2.4 g/dL 10/22/2017 Hepatic Phv616 A/G Ratio 1.4 Ratio 10/22/2017 Hepatic Fgg435 ALK PHOS 72 U/L 10/22/2017 Hepatic Ibw365 ALT(SGPT) 5 U/L 10/22/2017 Hepatic Nof029 AST(SGOT) 9 U/L 10/22/2017 Hepatic Jey599 BILI T 0.3 mg/dL 10/22/2017 Hepatic Rna991 BILI D 0.0 mg/dL 10/22/2017 Hepatic Xfq497 BILI I 0.3 mg/dL 10/22/2017 Hepatic Wbo592 ALBUMIN 3.8 g/dL 09/20/2017 Hepatic Boq749 TPRO 6.3 g/dL 09/20/2017 Hepatic Qnw300 GLOB 2.5 g/dL 09/20/2017 Hepatic Esa389 A/G Ratio 1.5 Ratio 09/20/2017 Hepatic Ovi925 ALK PHOS 67 U/L 09/20/2017 Hepatic Sji478 ALT(SGPT) 5 U/L 09/20/2017 Hepatic Vqi194 AST(SGOT) 11 U/L 09/20/2017 Hepatic Okw566 BILI T 0.4 mg/dL 09/20/2017 Hepatic Ujl137 BILI D 0.1 mg/dL 09/20/2017 Hepatic Vcd269 BILI I 0.3 mg/dL 09/20/2017 Valproic Acid Grq530 VALPROIC 10.0 ug/ml 09/20/2017 Valproic Acid Asx232 VALPROIC 44.0 ug/ml 08/23/2017 Hepatic Gjw764 ALBUMIN 3.5 g/dL 08/23/2017 Hepatic Fwb514 TPRO 6.1 g/dL 08/23/2017 Hepatic Ekp871 GLOB 2.6 g/dL 08/23/2017 Hepatic Sxq061 A/G Ratio 1.4 Ratio 08/23/2017 Hepatic Den658 ALK PHOS 63 U/L 08/23/2017 Hepatic Scf932 ALT(SGPT) 5 U/L 08/23/2017 Hepatic Mjq049 AST(SGOT) 9 U/L 08/23/2017 Hepatic Ceo878 BILI T 0.3 mg/dL 08/23/2017 Hepatic Fox680 BILI D 0.1 mg/dL 08/23/2017 Hepatic Zgd306 BILI I 0.2 mg/dL 08/23/2017 Hepatic Wpt940 ALBUMIN 3.5 g/dL 07/23/2017 Hepatic Lox393 TPRO 5.9 g/dL 07/23/2017 Hepatic Twz223 GLOB 2.4 g/dL 07/23/2017 Hepatic Mzb915 A/G Ratio 1.5 Ratio 07/23/2017 Hepatic Vlu382 ALK PHOS 61 U/L 07/23/2017 Hepatic Ezf622 ALT(SGPT) 6 U/L 07/23/2017 Hepatic Uhs982 AST(SGOT) 11 U/L 07/23/2017 Hepatic Gdb002 BILI T 0.3 mg/dL 07/23/2017 Hepatic Fgz640 BILI D 0.1 mg/dL 07/23/2017 Hepatic Xbo363 BILI I 0.2 mg/dL 07/23/2017 Valproic Acid Jqb346 VALPROIC 37.0 ug/ml 07/23/2017 Hepatic Pzi529 ALBUMIN 3.6 g/dL 06/26/2017 Hepatic Lns627 TPRO 6.0 g/dL 06/26/2017 Hepatic Duj522 GLOB 2.4 g/dL 06/26/2017 Hepatic Zjj052 A/G Ratio 1.5 Ratio 06/26/2017 Hepatic Ozx888 ALK PHOS 64 U/L 06/26/2017 Hepatic Onb172 ALT(SGPT) 8 U/L 06/26/2017 Hepatic Bia997 AST(SGOT) 11 U/L 06/26/2017 Hepatic Kwh294 BILI T 0.3 mg/dL 06/26/2017 Hepatic Egl179 BILI D 0.1 mg/dL 06/26/2017 Hepatic Cdi415 BILI I 0.2 mg/dL 06/26/2017 Valproic Acid Nhm304 VALPROIC 45.0 ug/ml 06/26/2017 Comp Metabolic Hrh054 NA 140 mEq/L 05/18/2017 Comp Metabolic Sgp120 K 4.2 mEq/L 05/18/2017 Comp Metabolic Igl298 CL 103 mEq/L 05/18/2017 Comp Metabolic Efd770 CO2 27.0 mEq/L 05/18/2017 Comp Metabolic Eqw580 ANION GAP 14 05/18/2017 Comp Metabolic Egj986 GLUCOSE 85 mg/dL 05/18/2017 Comp Metabolic Xrm142 Creat 0.6 mg/dL 05/18/2017 Comp Metabolic Sdr324 eGFR 109 ml/min/1.73m2 05/18/2017 Comp Metabolic Adx050 BUN 8 mg/dL 05/18/2017 Comp Metabolic Mvh853 B/C Ratio 14.3 Ratio 05/18/2017 Comp Metabolic Nyy140 CALCIUM 8.6 mg/dL 05/18/2017 Comp Metabolic Rxa445 ALK PHOS 85 U/L 05/18/2017 Comp Metabolic Qeo323 AST(SGOT) 10 U/L 05/18/2017 Comp Metabolic Xcz076 ALT(SGPT) 6 U/L 05/18/2017 Comp Metabolic Gzl928 BILI T 0.4 mg/dL 05/18/2017 Comp Metabolic Afz385 ALBUMIN 3.7 g/dL 05/18/2017 Comp Metabolic Zev233 TPRO 6.3 g/dL 05/18/2017 Comp Metabolic Pnu899 GLOB 2.6 g/dL 05/18/2017 Comp Metabolic Jxl897 A/G Ratio 1.4 Ratio 05/18/2017 Comp Metabolic Gqn827 Osmo 277 mOsmo 05/18/2017 Bili D Ord93 BILI D 0.1 mg/dL 05/18/2017 Bili D Ord93 BILI I 0.3 mg/dL 05/18/2017 Valproic Acid Lpp590 VALPROIC 27.0 ug/ml 05/18/2017 Urinalysis Ord28 U-Color [...] 04/11/2017 Urinalysis Ord28 U-Yeast NEGATIVE 04/11/2017 A1C 8473288 A1C HPLC 80950-1 5.9 % 07/08/2013 LIPID GRP HDL TEST 47 MG/DL 07/07/2013 LIPID GRP TRIG 121 MG/DL 07/07/2013 LIPID GRP TEST LDL 63 MG/DL 07/07/2013 LIPID GRP CHOL 134 MG/DL 07/07/2013 LIPID GRP RCHOL/HDL 2.85 RATIO 07/07/2013 CBC 3999150 WBC 8.9 10e9/L 07/07/2013 CBC 8130855 RBC 4.27 10e12/L 07/07/2013 CBC 9199590 HGB 12.7 g/dL 07/07/2013 CBC 1317869 HCT DET 39.0 % 07/07/2013 CBC 1417659 MCV 91.3 fL 07/07/2013 CBC 8058714 MCH 29.7 pg 07/07/2013 CBC 4850386 MCHC 32.6 g/dL 07/07/2013 CBC 0523210 PLT 273 10e9/L 07/07/2013 CBC 7987701 MPV 11.0 fL 07/07/2013 CBC 0252586 TORREY % 69.1 % 07/07/2013 CBC 8203056 LY % 19.6 % 07/07/2013 CBC 7273165 MON % 8.5 % 07/07/2013 CBC 0682036 EOS % 2.6 % 07/07/2013 CBC 6951735 BASO % 0.2 % 07/07/2013 CBC 4161837 RDW 13.0 % 07/07/2013 CBC 7337495 ABS TORREY 6.15 10e9/L 07/07/2013 CBC 7356727 ABS LYMPH 1.74 10e9/L 07/07/2013 CBC 4883235 ABS MONO 0.76 10e9/L 07/07/2013 CBC 9483215 ABS EOS 0.23 10e9/L 07/07/2013 CBC 6585010 ABS BASO 0.02 10e9/L 07/07/2013 CBC 8770708 RDW-SD 42.3 fL 07/07/2013 GFR CALC 9224519 GFR AA >60 ML/MIN 07/07/2013 GFR CALC 4864601 GFR NON-AA >60 ML/MIN 07/07/2013 CHEM 14 1772715 AST 14 U/L 07/07/2013 CHEM 14 9368038 ALT 10 IU/L 07/07/2013 CHEM 14 1282876 BUN 11 MG/DL 07/07/2013 CHEM 14 5348591 ALBUMIN 4.1 GM/DL 07/07/2013 CHEM 14 5914040 CHLORIDE 107 MMOL/L 07/07/2013 CHEM 14 2230382 BILI TOT 0.4 MG/DL 07/07/2013 CHEM 14 7742615 ALK PHOS 54 U/L 07/07/2013 CHEM 14 4948649 SODIUM 141 MMOL/L 07/07/2013 CHEM 14 5672661 CREATININE 0.70 MG/DL 07/07/2013 CHEM 14 4110905 CALCIUM 9.0 MG/DL 07/07/2013 CHEM 14 8427261 POTASSIUM 4.2 MMOL/L 07/07/2013 CHEM 14 9787414 PROT TOT 6.5 GM/DL 07/07/2013 CHEM 14 7629609 GLUCOSE 102 MG/DL 07/07/2013 CHEM 14 2388172 BICARB 28 MMOL/L 07/07/2013 CHEM 14 6188686 ANION GAP 6 MEQ/L 07/07/2013 CHEM 14 7448860 AST 14 U/L 01/06/2013 CHEM 14 3912880 ALT 12 IU/L 01/06/2013 CHEM 14 0378675 BUN 9 MG/DL 01/06/2013 CHEM 14 7000981 ALBUMIN 4.2 GM/DL 01/06/2013 CHEM 14 0323421 CHLORIDE 108 MMOL/L 01/06/2013 CHEM 14 4467122 BILI TOT 0.4 MG/DL 01/06/2013 CHEM 14 8880204 ALK PHOS 74 U/L 01/06/2013 CHEM 14 1968314 SODIUM 142 MMOL/L 01/06/2013 CHEM 14 3325282 CREATININE 0.62 MG/DL 01/06/2013 CHEM 14 4641441 CALCIUM 9.0 MG/DL 01/06/2013 CHEM 14 0406336 POTASSIUM 4.3 MMOL/L 01/06/2013 CHEM 14 8147590 PROT TOT 6.6 GM/DL 01/06/2013 CHEM 14 3440021 GLUCOSE 94 MG/DL 01/06/2013 CHEM 14 9801772 BICARB 25 MMOL/L 01/06/2013 CHEM 14 5965396 ANION GAP 9 MEQ/L 01/06/2013 CBC 3486623 WBC 7.2 10e9/L 01/06/2013 CBC 7334784 RBC 4.22 10e12/L 01/06/2013 CBC 7889414 HGB 12.6 g/dL 01/06/2013 CBC 1722367 HCT DET 38.3 % 01/06/2013 CBC 8418935 MCV 90.8 fL 01/06/2013 CBC 1727675 MCH 29.9 pg 01/06/2013 CBC 0211307 MCHC 32.9 g/dL 01/06/2013 CBC 5281525 PLT 287 10e9/L 01/06/2013 CBC 9857933 MPV 11.0 fL 01/06/2013 CBC 2534567 TORREY % 68.0 % 01/06/2013 CBC 2222165 LY % 21.6 % 01/06/2013 CBC 9401856 MON % 9.0 % 01/06/2013 CBC 6522163 EOS % 1.3 % 01/06/2013 CBC 7890732 BASO % 0.1 % 01/06/2013 CBC 5646384 RDW 13.3 % 01/06/2013 CBC 0081123 ABS TORREY 4.90 10e9/L 01/06/2013 CBC 9072712 ABS LYMPH 1.56 10e9/L 01/06/2013 CBC 3117772 ABS MONO 0.65 10e9/L 01/06/2013 CBC 1932730 ABS EOS 0.09 10e9/L 01/06/2013 CBC 4679349 ABS BASO 0.01 10e9/L 01/06/2013 CBC 0480635 RDW-SD 43.0 fL 01/06/2013 VIT B 12 1278788 VIT B 12 >2000 PG/ML 01/06/2013 TSH 0610618 TSH 1.814 uIU/ML 01/06/2013 GFR CALC 0635859 GFR AA >60 ML/MIN 01/06/2013 GFR CALC 0476871 GFR NON-AA >60 ML/MIN 01/06/2013 FREE T4 9723619 FREE T4 1.19 NG/DL 01/06/2013 URINALYSIS NONAUTO W/O SCOPE 87356 Specific [place] 1.020 DateTime(Free Text in Aprima) URINALYSIS NONAUTO W/O SCOPE 19810 PH 6.0 DateTime(Free Text in Aprima) URINALYSIS NONAUTO W/O SCOPE 81112 GLUCOSE negative DateTime(Free Text in Aprima) URINALYSIS NONAUTO W/O SCOPE 95852 Protein negative DateTime(Free Text in Aprima) URINALYSIS NONAUTO W/O SCOPE 45251 Blood negative DateTime( Free Text in Aprima) URINALYSIS NONAUTO W/O SCOPE 06301 Bilirubin negative DateTime(Free Text in Aprima) URINALYSIS NONAUTO W/O SCOPE 06689 Ketones trace DateTime(Free Text in Aprima) URINALYSIS NONAUTO W/O SCOPE 88378 Urobilinogen negative DateTime(Free Text in Aprima) URINALYSIS NONAUTO W/O SCOPE 10018 Nitrite negative DateTime(Free Text in Aprima) URINALYSIS NONAUTO W/O SCOPE 66569 Leukocytes 1+ DateTime(Free Text in Aprima) URINALYSIS NONAUTO W/O SCOPE 13973 Specific [place] 1.005 DateTime(Free Text in Aprima) URINALYSIS NONAUTO W/O SCOPE 36493 PH 5 DateTime(Free Text in Aprima) URINALYSIS NONAUTO W/O SCOPE 71672 GLUCOSE neg DateTime( Free Text in Aprima) URINALYSIS NONAUTO W/O SCOPE 38495 Protein neg DateTime( Free Text in Aprima) URINALYSIS NONAUTO W/O SCOPE 05381 Blood neg DateTime(Free Text in Aprima) URINALYSIS NONAUTO W/O SCOPE 50756 Bilirubin neg DateTime(Free Text in Aprima) URINALYSIS NONAUTO W/O SCOPE 62275 Ketones neg DateTime( Free Text in Aprima) URINALYSIS NONAUTO W/O SCOPE 22316 Urobilinogen neg DateTime(Free Text in Aprima) URINALYSIS NONAUTO W/O SCOPE 95292 Nitrite neg DateTime( Free Text in Aprima) URINALYSIS NONAUTO W/O SCOPE 22676 Leukocytes neg DateTime(Free Text in Aprima) URINALYSIS NONAUTO W/O SCOPE 99712 Specific [place] 1.010 DateTime(Free Text in Aprima) URINALYSIS NONAUTO W/O SCOPE 83522 PH 6 DateTime(Free Text in Aprima) URINALYSIS NONAUTO W/O SCOPE 79554 GLUCOSE DateTime( Free Text in Aprima) URINALYSIS NONAUTO W/O SCOPE 84130 Protein DateTime( Free Text in Aprima) URINALYSIS NONAUTO W/O SCOPE 42002 Blood DateTime(Free Text in Aprima) URINALYSIS NONAUTO W/O SCOPE 84296 Bilirubin DateTime( Free Text in Aprima) URINALYSIS NONAUTO W/O SCOPE 14623 Ketones DateTime( Free Text in Aprima) URINALYSIS NONAUTO W/O SCOPE 26393 Urobilinogen DateTime (Free Text in ) URINALYSIS NONAUTO W/O SCOPE 24024 Nitrite DateTime( Free Text in ) URINALYSIS NONAUTO W/O SCOPE 20727 Leukocytes trace DateTime(Free Text in ) Review [...] atraumatic 10/16/2013 None Full Exam - General 1993 [...] FLU VACC PRSV FREE INC ANTIG CPT-4: 75462 06/22/2016 ADMIN PNEUMOCOCCAL VACCINE SNOMED CT: 73007062 CPT-4: G0009 09/16/2015 PNEUMOCOCCAL VACC 13 QUYEN IM Formatting Model/CDA Sections, Assigned to SNOMED CT: 21589484 CPT-4: 97216Bdmfozz 09/16/2015 ADMIN INFLUENZA VIRUS VAC Formatting Model/CDA Sections, Assigned to/Renan Sharmaa CPT-4: P0175Cwlbpzj 07/01/2015 FLU VACC 4 QUYEN 3 YRS PLUS IM SNOMED CT: 07413921 CPT-4: 92972 07/01/2015 FLU VAC NO PRSV 4 QUYEN 3 YRS+ CPT-4: 79775 06/11/2014 ADMIN INFLUENZA VIRUS VAC Assigned to/Zachary Arabella CPT-4: E3506Znnyyip 06/11/2014 URINALYSIS NONAUTO W/O SCOPE CPT-4: 74521 07/31/2013 ADMIN INFLUENZA VIRUS VAC CPT-4: G0008 07/07/2013 FLULAVAL VACC, 3 YRS & >, IM CPT-4: Q2036 07/07/2013 ROUTINE VENIPUNCTURE CPT-4: 62392 07/07/2013 03938 EST. PATIENT, LEVEL IV CPT-4: 02283 06/12/2013 91708 EST. PATIENT, LEVEL IV CPT-4: 32653 02/13/2013 ROUTINE VENIPUNCTURE CPT-4: 08968 01/06/2013 URINALYSIS NONAUTO W/O SCOPE CPT-4: 73399 01/06/2013 81071 EST. PATIENT, LEVEL IV CPT-4: 07595 09/19/2012 URINALYSIS NONAUTO W/O SCOPE CPT-4: 18828 09/19/2012 IMMUNIZATION ADMIN CPT -4: 55665 07/25/2012 Influenza Virus Vaccine, Split Virus, >3 Yrs, IM CPT-4: 22821 07/25/2012 URINALYSIS NONAUTO W/O SCOPE CPT-4: 94812 05/23/2012 URINALYSIS NONAUTO W/O SCOPE CPT-4: 13450 04/05/2012 Vital Signs Date Vital 08/15/2018 Blood Pressure 1: 150/80 Code : 8480-6 BMI: 29.6 Code : 04804-4 Heart Rate 1 : 72 bpm Height: 5'2" SpO2: 94% Weight: 162 lbs 06/06/2018 Blood Pressure 1: 140/70 Code : 8480-6 BMI: 29.1 Code : 39524-0 Heart Rate 1 : 72 bpm Height: 5'2" SpO2: 94% Weight: 159 lbs 02/28/2018 Blood Pressure 1: 140/76 Code : 8480-6 BMI: 28.9 Code : 37074-8 Heart Rate 1 : 69 bpm Height: 5'2" SpO2: 97% Weight: 158 lbs 11/22/2017 Blood Pressure 1: 146/84 Code : 8480-6 BMI: 29.4 Code : 81802-4 Heart Rate 1 : 72 bpm Height: 5'2" SpO2: 96% Weight: 161 lbs 08/16/2017 Blood Pressure 1: 130/68 Code : 8480-6 BMI: 28.9 Code : 52150-9 Heart Rate 1 : 63 bpm Height: 5'2" SpO2: 96% Weight: 158 lbs 05/17/2017 Blood Pressure 1: 138/80 Code : 8480-6 Heart Rate 1: 88 bpm Height: SpO2: 96% Weight: 04/25/2017 Blood Pressure 1: 140/74 Code : 8480-6 BMI: 29.8 Code : 04662-1 Heart Rate 1 : 106 bpm Height: 5'2" SpO2: 96% Weight: 163 lbs 03/22/2017 Blood Pressure 1: 128/82 Code : 8480-6 BMI: 30.4 Code : 00462-4 Heart Rate 1 : 76 bpm Height: 5'2" SpO2: 95% Weight: 166 lbs 12/21/2016 Blood Pressure 1: 144/80 Code : 8480-6 BMI: 30.9 Code : 56201-2 Heart Rate 1 : 72 bpm Height: 5'2" SpO2: 98% Weight: 169 lbs 09/21/2016 Blood Pressure 1: 140/76 Code : 8480-6 BMI: 30.5 Code : 89912-6 Heart Rate 1 : 78 bpm Height: 5'2" SpO2: 97% Weight: 167 lbs 06/22/2016 Blood Pressure 1: 132/74 Code : 8480-6 BMI: 30.9 Code : 83116-9 Heart Rate 1 : 71 bpm Height: 5'2" SpO2: 98% Weight: 169 lbs 03/23/2016 Blood Pressure 1: 122/68 Code : 8480-6 BMI: 29.8 Code : 16742-5 Heart Rate 1 : 68 bpm Height: 5'2" SpO2: 98% Weight: 163 lbs 12/16/2015 Blood Pressure 1: 142/70 Code : 8480-6 BMI: 30.5 Code : 48432-2 Heart Rate 1 : 68 bpm Height: 5'2" SpO2: 98% Weight: 167 lbs 09/16/2015 Blood Pressure 1: 124/58 Code : 8480-6 BMI: 30.0 Code : 01286-0 Heart Rate 1 : 59 bpm Height: 5'2" SpO2: 96% Weight: 164 lbs 07/01/2015 Blood Pressure 1: 128/74 Code : 8480-6 BMI: 29.8 Code : 43614-5 Heart Rate 1 : 62 bpm Height: 5'2" SpO2: 98% Weight: 163 lbs 02/25/2015 Blood Pressure 1: 142/92 Code : 8480-6 Blood Pressure 2: 138/90 Code: 8480-6 BMI: 29.1 Code: 83412-5 Heart Rate 1: 78 bpm Height: 5'2" SpO2: 98% Weight: 159 lbs 11/19/2014 Blood Pressure 1: 130/80 Code : 8480-6 BMI: 28.3 Code : 21752-8 Heart Rate 1 : 68 bpm Height: 5'2" Weight: 155 lbs 08/13/2014 Blood Pressure 1: 122/62 Code : 8480-6 BMI: 27.4 Code : 56031-7 Heart Rate 1 : 72 bpm Height: 5'2" Weight: 150 lbs 06/11/2014 Blood Pressure 1: 112/56 Code : 8480-6 BMI: 27.0 Code : 39359-8 Heart Rate 1 : 67 bpm Height: 5'2" SpO2: 98% Weight: 147 lbs 8 oz 04/16/2014 Blood Pressure 1: 120/62 Code : 8480-6 BMI: 26.7 Code : 49071-9 Heart Rate 1 : 68 bpm Height: 5'2" Weight: 146 lbs 03/12/2014 Blood Pressure 1: 132/82 Code : 8480-6 BMI: 27.1 Code : 90421-3 Heart Rate 1 : 64 bpm Height: 5'2" Weight: 148 lbs 02/26/2014 Blood Pressure 1: 104/50 Code : 8480-6 BMI: 25.8 Code : 93095-8 Heart Rate 1 : 64 bpm Height: 5'2" Weight: 141 lbs 11/27/2013 Blood Pressure 1: 122/68 Code : 8480-6 Heart Rate 1: 60 bpm Weight: 153 lbs 10/16/2013 Blood Pressure 1: 136/72 Code : 8480-6 BMI: 27.4 Code : 41117-6 Heart Rate 1 : 80 bpm Height: 5'2" Weight: 150 lbs 07/10/2013 Blood Pressure 1: 126/76 Code : 8480-6 BMI: 27.3 Code : 35132-9 Heart Rate 1 : 80 bpm Height: 5'2" Weight: 149 lbs 06/12/2013 Blood Pressure 1: 168/80 Code : 8480-6 BMI: 27.3 Code : 40081-8 Heart Rate 1 : 76 bpm Height: 5'2" Weight: 149 lbs 8 oz 02/13/2013 Blood Pressure 1: 108/72 Code : 8480-6 BMI: 27.4 Code : 27562-6 Heart Rate 1 : 80 bpm Height: 5'2" Weight: 150 lbs 01/06/2013 Blood Pressure 1: 126/62 Code : 8480-6 BMI: 27.6 Code : 12159-2 Heart Rate 1 : 76 bpm Height: [...] Code : 8480-6 BMI: 27.8 Code : 69044-0 Heart Rate 1 : 80 bpm Height: [...] bring in readings 08/15/2018 nurses check at [facility] memory loss Onset and Resolution gradual in [...] Present Encounters Encounter Performer Location Codes Date ([id number]) 19116 EST. PATIENT, LEVEL IV Diagnosis: Essential (primary) hypertension[ICD10: I10] Diagnosis: Mixed hyperlipidemia[ICD10: E78.2] Diagnosis: Dementia with Lewy bodies[ICD10: G31.83] Allie Mcneill MD, [facility] CPT-4: 34665 08/15/2018 ([id number]) 31884 EST. 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 PATIENT, LEVEL IV Diagnosis: Pseudobulbar affect[ICD10: F48.2] Diagnosis: Dementia with Lewy bodies[ICD10: G31.83] Allie Mcneill MD [facility] CPT-4: 34819 03/22/2017 ([id number]) 17478 EST. PATIENT, LEVEL IV Diagnosis: Mixed hyperlipidemia[ICD10: E78.2] Diagnosis: Dementia with Lewy bodies[ICD10: G31.83] Diagnosis: Major depressive disorder, recurrent, mild[ICD10: F33.0] Allie Mcneill MD, [facility] CPT-4: 02232 12/21/2016 ([id number]) 28992 EST. PATIENT, LEVEL IV Diagnosis: Dementia with Lewy bodies[ICD10: G31.83] Diagnosis: Mixed hyperlipidemia[ICD10: E78.2] Diagnosis: Encounter for immunization[ICD10: Z23] Diagnosis: Major depressive disorder, recurrent, mild[ICD10: F33.0] Allie Mcneill MD [facility] CPT-4: 92947 09/21/2016 ([id number]) 47339 EST. PATIENT, LEVEL III Diagnosis: Encounter for immunization[ICD10: Z23] Diagnosis: Dementia with Lewy bodies[ICD10: G31.83] Diagnosis: Major depressive disorder, recurrent, mild[ICD10: F33.0] Allie Mcneill MD, [facility] CPT-4: 40461 06/22/2016 ([id number]) 21921 EST. PATIENT, LEVEL III Diagnosis: Mixed hyperlipidemia[ICD10: E78.2] Diagnosis: Dementia with Lewy bodies[ICD10: G31.83] Allie Mcneill MD [facility] CPT-4: 46560 03/23/2016 ([id number]) 45678 EST. PATIENT, LEVEL IV Diagnosis: Dementia with Lewy bodies[ICD10: G31.83] Diagnosis: Other hallucinations[ICD10: R44.2] Diagnosis: Mixed hyperlipidemia[ICD10: E78.2] Allie Mcneill MD, [facility] CPT-4: 65492 12/16/[id number]) 24080 EST. PATIENT, LEVEL IV Diagnosis: Dementia with Lewy bodies[ICD10: G31.83] Diagnosis: Other hallucinations[ICD10: R44.2] Diagnosis: Mixed hyperlipidemia[ICD10: E78.2] Diagnosis: Encounter for immunization[ICD10: Z23] Allie Mcneill MD, [facility] CPT-4: 25629 09/16/2015 ([id number]) 91910 EST. PATIENT, LEVEL IV Diagnosis: HYPERLIPIDEMIA[ICD9: 272.4] Diagnosis: DEMEN NOS 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[ICD9: 294.20] Diagnosis: LEWY BODY DEMENTIA[ICD9: 331.82] Diagnosis: VACCIN FOR INFLUENZA[ICD9: V04.81] Allie Mcneill MD, [facility] CPT-4: 99423 07/01/2015 ([id number]) 01066 EST. PATIENT, LEVEL IV Diagnosis: HYPERLIPIDEMIA[ICD9: 272.4] Diagnosis: Dementia[ICD9: 294.20] Diagnosis: LEWY BODY DEMENTIA[ICD9: 331.82] Allie Mcneill MD, [facility] CPT-4: 52018 02/25/2015 ([id number]) 60348 EST. PATIENT, LEVEL IV Diagnosis: HYPERLIPIDEMIA[ICD9: 272.4] Diagnosis: Dementia[ICD9: 294.20] Diagnosis: LEWY BODY DEMENTIA[ICD9: 331.82] Allie Mcneill MD, [facility] CPT-4: 77979 11/19/2014 ([id number]) 22136 EST. PATIENT, LEVEL IV Diagnosis: HYPERLIPIDEMIA[ICD9: 272.4] Diagnosis: LEWY BODY DEMENTIA[ICD9: 331.82] Allie Mcneill MD, [facility] CPT-4: 93859 08/13/2014 ([id number]) 45115 EST. PATIENT, LEVEL IV Diagnosis: LEWY BODY DEMENTIA[ICD9: 331.82] Diagnosis: Psychosis[ICD9: 298.9] Allie Mcneill MD, [facility] CPT-4: 76773 06/11/2014 ([id number]) 48213 EST. PATIENT, LEVEL III Diagnosis: Lewy body dementia with behavioral disturbance[ICD9: 331.82] Diagnosis: Ulcer of gingiva[ICD9: 523.8] Shari Mcneill MD, [facility] CPT-4: 36783 04/16/2014 ([id number]) 47634 EST. PATIENT, LEVEL IV Diagnosis: Shingles[ICD9: 053.9] Diagnosis: Oral aphthae[ICD9: 528.2] Diagnosis: Yeast infection of the skin[ICD9: 112.3] Allie Mcneill MD, [facility] CPT-4: 48093 03/12/2014 ([id number]) 46504 EST. PATIENT, LEVEL IV Diagnosis: DEMEN NOS 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[ICD9: 294.20] Diagnosis: LEWY BODY DEMENTIA[ICD9: 331.82] Diagnosis: Impacted cerumen of both ears[ICD9: 380.4] Diagnosis: Weight loss[ICD9: 783.21] Diagnosis: Shingles rash[ICD9: 053.9] Allie Mcneill MD, [facility] CPT- 4: 81895 02/26/2014 ([id number]) 72458 EST. PATIENT, LEVEL IV Diagnosis: SENILE DELUSION[ICD9: 290.20] Diagnosis: LEWY BODY DEMENTIA[ICD9: 331.82] Diagnosis: HALLUCINATIONS[ICD9: 780.1] Diagnosis: PSYCHOSIS[ICD9: 298.9] Allie Mcneill MD, [facility] CPT-4: 16388 11/27/2013 ([id number]) 90745 EST. PATIENT, LEVEL IV Diagnosis: LEWY BODY DEMENTIA[ICD9: 331.82] Diagnosis: HALLUCINATIONS[ICD9: 780.1] Diagnosis: PSYCHOSIS[ICD9: 298.9] Allie Mcneill MD [facility] CPT-4: 53033 10/16/2013 ([id number]) 65755 EST. PATIENT, LEVEL III Diagnosis: LEWY BODY DEMENTIA[ICD9: 331.82] Diagnosis: HALLUCINATIONS[ICD9: 780.1] Allie Mcneill MD, [facility] CPT- 4: 21323 07/10/2013 ([id number]) 06148 EST. PATIENT, LEVEL IV Diagnosis: LEWY BODY DEMENTIA[ICD9: 331.82] Diagnosis: HALLUCINATIONS[ICD9: 780.1] Diagnosis: Dehydration[ICD9: 276.51] Diagnosis: Dementia[ICD9: 294.20] Allie Mcneill MD, [facility] CPT-4: 36708 01/06/2013 93063 EST. PATIENT, LEVEL III Diagnosis: Candidiasis of breast[ICD9: 112.2] Diagnosis: Seborrheic keratosis[ICD9: 702.19] Diagnosis: Dry skin[ICD9: 782.9] [facility] CPT-4: 06294 08/08/2012 ([id number]) 36347 EST. PATIENT, LEVEL IV Diagnosis: LEWY BODY DEMENTIA[ICD9: 331.82] Diagnosis: HALLUCINATIONS[ICD9: 780.1] [facility] CPT- 4: 71751 05/23/2012 ([id number]) 04045 EST. PATIENT, LEVEL IV Diagnosis: HALLUCINATIONS[ICD9: 780.1] Diagnosis: LEWY BODY DEMENTIA[ICD9: 331.82] [facility] CPT-4: 62537 04/04/2012 ([id number]) 63302 EST. PATIENT, LEVEL IV Diagnosis: Lewy body dementia with behavioral disturbance[ICD9: 331.82] Diagnosis: Hallucinations[ICD9: 780.1] Diagnosis: INSOMNIA IN OTHER DIS[ICD9: 327.01] [facility] CPT-4: 51768 03/21/2012 Plan of Care Planned Activity Notes Codes Status Date Patient Education: Patient Medication Summary Completed 08/15/2018 Appointment: [facility] [place] ([facility] min) Moderate 06/06/2018 Patient Education: Patient Medication Summary Completed 06/06/2018 Appointment: [facility]neill [facility] [place] ([place] min) Moderate 02/28/2018 Patient Education: Patient Medication Summary Completed 02/28/2018 [facility] [facility] [place] ([place] min) Moderate 11/22/2017 Patient Education: Patient Medication Summary Completed 11/22/2017 Appointment: [facility]ill [facility] [place] ([place] min) Moderate 11/15/2017 Appointment: Allie Mcneill WPtel: [facility] [place] (15 min) Moderate 08/16/2017 Patient Education: Patient Medication Summary Completed 08/16/2017 [facility] [facility] [place] ([place] min) Moderate 05/17/2017 Patient Education: Patient Medication Summary Completed 05/17/2017 [facility] [address] [facility] [place] ([place] min) Moderate 04/25/2017 Patient Education: Patient Medication Summary Completed 04/25/2017 Appointment: Allie Mcneill WPtel: [address] [facility] [place] (15 min) Moderate 04/19/2017 [facility] [facility] [place] ([place] min) Moderate 03/22/2017 Patient Education: Patient Medication Summary Completed 03/22/2017 [facility] [facility] [place] ([place] min) Moderate 12/21/2016 Patient Education: Patient Medication Summary Completed 12/21/2016 [facility] [address] [facility] [place] ([place] min) Moderate 09/21/2016 Patient Education: Patient Medication Summary Completed 09/21/2016 Patient Education: Obesity Completed 09/21/2016 [facility] [facility] [place] ([place]) Moderate 06/22/2016 Patient Education: Patient Medication Summary Completed 06/22/2016 [facility] [facility] [place] ([place] min) Moderate 03/23/2016 Patient Education: Patient Medication Summary Completed 03/23/2016 Appointment: Allie Mcneill WPtel: [address] [facility] [place] (15 min) Moderate 12/16/2015 Patient Education: Patient Medication Summary Completed 12/16/2015 Patient Education: Obesity Completed 12/16/2015 Appointment: Allie Mcneill WPtel: [address] [place], [place] [phone] (15 min) Moderate 09/16/2015 Patient Education: Patient Medication Summary Completed 09/16/2015 Appointment: Allie Mcneill WPtel: [address] [place], [place] [phone] Follow up 07/01/2015 Patient Education: Patient Medication Summary Completed 07/01/2015 Patient Education: Patient Medication Summary Completed 02/25/2015 Appointment: Allie Mcneill WPtel: [address] [place], [place] [phone] Follow up 11/19/2014 Patient Education: Patient Medication Summary Completed 11/19/2014 Appointment: Allie Mcneill WPtel: [address] [place], [place] [phone] Follow up 11/12/2014 Appointment: Allie Mcneill WPtel: [address] [place], [place] [phone] Follow up 09/10/2014 Appointment: Allie Mcneill WPtel: [address] [place], [place] [id number] Follow up 08/13/2014 Patient Education: Patient Medication Summary Completed 08/13/2014 Appointment: Allie Mcneill WPtel: [address] [place], [place] [phone] [place] Follow up 06/11/2014 Patient Education: Patient Medication Summary Completed 06/11/2014 Appointment: Other 04/16/2014 Patient Education: Patient Medication Summary Completed 04/16/2014 Appointment: Allie Mcneill WPtel: [address] [place], [place] [phone] [place] Follow up 03/12/2014 Patient Education: Patient Medication Summary Completed 03/12/2014 Appointment: Allie Mcneill WPtel: [address] [place], [place] [phone] [place] Follow up 02/26/2014 Patient Education: Patient Medication Summary Completed 02/26/2014 Appointment: Allie Mcneill WPtel: [facility] Follow up 02/04/2014 Appointment: Allie Mcneill WPtel: [address] [place], [place] [phone] Follow up 01/19/2014 Appointment: Allie Mcneill WPtel: [address] [place], [place] [phone] [place] Follow up 11/27/2013 Patient Education: Patient Medication Summary Completed 11/27/2013 Appointment: Allie Mcneill WPtel: [address] [place], [place] [phone] [place] Follow up 10/16/2013 Patient Education: Patient Medication Summary Completed 10/16/2013 Appointment: Shari Parada WPtel: [address] [place], [place] [phone] [place] Lab Draw 07/31/2013 Patient Education: Patient Medication Summary Completed 07/31/2013 Appointment: Allie Mcneill WPtel: [address] [place], [place] [id number] [place] Lab Draw 07/30/2013 Appointment: Allie Mcneill WPtel: [address] [place], [place] [id number] Follow up 07/10/2013 Patient Education: Patient Medication Summary Completed 07/10/2013 Patient Education: Patient Medication Summary Completed 07/07/2013 Appointment: Allie Mcneill WPtel: [address] [place], [place] [phone] [place] Follow up 06/12/2013 Patient Education: Patient Medication Summary Completed 06/12/2013 Appointment: Allie Mcneill WPtel: [address] [place], [place] [phone] [place] Follow up 02/13/2013 Patient Education: Patient Medication Summary Completed 02/13/2013 Appointment: Allie Mcneill WPtel: [address] [place], [place] [phone] [place] Follow up 01/06/2013 Patient Education: Patient Medication Summary Completed 01/06/2013 [id number] [facility] Preventative visit 09/19/2012 Patient Education: Patient Medication Summary Completed 09/19/2012 [id number] [place] rash 08/08/2012 Patient Education: Patient Medication Summary Completed 08/08/2012 [facility]ment[facility] [address] [facility] [place] Injection 07/25/2012 Patient Education: Patient Medication Summary Completed 07/25/2012 [facility]ment[facility] [address] [facility] [facility] 05/23/2012 Patient Education: Patient Medication Summary Completed 05/23/2012 [facility]ment[facility] [phone] [facility] 04/05/2012 Patient Education: Patient Medication Summary Completed 04/05/2012 Appointment: [facility]ill [facility]el[facility] [facility] 04/04/2012 Patient Education: Patient Medication Summary Completed 04/04/2012 App[facility]ment: [facility] [facility] [facility] 03/21/2012 Patient Education: Patient Medication Summary Completed 03/21/2012 Instructions No Instructions
--- OUTSIDE RECORDS SUMMARY | 2018-10-02 18:31 | XMS REPORT | CCD ---
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 [employer] Name Role Phone PP Unavailable CCM Unavailable Summary Purpose Interface Exchange Insurance Providers Payer name Policy type / Coverage type Covered alliance party ID Effective Begin Date Effective End Date HUMANA CLAIMS Commercial Insurance [id number] Unknown Family history Daughter Diagnosis Age At [...] Codes Description Effective Dates Living arrangements Unknown [facility] 12/21/2016 Marital status Unknown 03/21/2012 Number of children Unknown 5 03/21/[address]: 390838847 Nonsmoker 03/21/[address]: 098629628 Never drinks alcohol 03/21/2012 Allergies, Adverse Reactions, [...] Depakote ER 250 mg tablet,extended release RxNorm: 4548866 TAKE 1 TABLET BY MOUTH TWICE DAILY 08/14/2018 03/11/2019 Active Generic For:DEPAKOTE ER 250MG 08/14/2018 8:56:28 AM Vitamin B-12 500 mcg tablet RxNorm: 991353 1 Tablet(s) PO daily except [place] and nour 07/24/2018 No Stop Date Active Exelon Patch 9.5 mg/24 hr transdermal RxNorm: 802148 APPLY ONE (1) PATCH ONCE DAILY. 07/04/2018 10/31/2018 Active 07/04/2018 3:15:29 PM Depakote ER 250 mg tablet,extended release RxNorm: 0402239 1 Tablet(s) PO BID 06/18/2018 08/13/2018 Inactive Namenda 10 mg tablet RxNorm: 758251 TAKE 1 TABLET BY MOUTH TWICE DAILY 06/13/2018 12/09/2018 Active Generic For:NAMENDA 10MG TAB 06/13/2018 9:01:14 AM losartan 50 mg tablet RxNorm: 645044 TAKE 1 TABLET BY MOUTH EVERY DAY 06/03/2018 12/29/2018 Active Generic For:*COZAAR 50MG 06/03/2018 9:11:33 AM Flonase 50 mcg/actuation nasal spray,suspension RxNorm: 3135719 INSTILL ONE SPRAY IN EACH NOSTRIL TWICE DAILY (MORNING AND EVENING) 05/28/2018 08/25/2018 Active Generic For:FLONASE SPR 0.05% 05/28/2018 2:26:52 PM Exelon Patch 9.5 mg/24 hr transdermal RxNorm: 923387 APPLY ONE (1) PATCH ONCE DAILY. 03/12/2018 07/03/2018 Inactive 03/12/2018 2:27:46 PM Celexa 20 mg tablet RxNorm: 263749 1/2 Tablet(s) PO daily 08/26/2018 Active Generic For:CELEXA 20MG 12/17/2017 3:01:05 PM Depakote ER 250 mg tablet,extended release RxNorm: 6070235 1 Tablet(s) PO daily 02/28/2018 06/17/2018 Inactive Flonase 50 mcg/actuation nasal spray,suspension RxNorm: 4409789 INSTILL ONE SPRAY IN EACH NOSTRIL TWICE DAILY (MORNING AND EVENING) 01/09/2018 04/08/2018 Inactive Generic For:FLONASE SPR 0.05% 01/07/2018 2:08:18 PM Keflex 500 mg capsule RxNorm: 628475 1 Capsule(s) PO TID 201701/06/2018 Inactive probiotic BID while on antibiotic Celexa 20 mg tablet RxNorm: 788989 TAKE 1 TABLET BY MOUTH EVERY DAY 12/17/2017 02/27/2018 Inactive Generic For:CELEXA 20MG 12/17/2017 3:01:05 PM Namenda 10 mg tablet RxNorm: 656528 TAKE 1 TABLET BY MOUTH TWICE DAILY 12/07/2017 06/04/2018 Inactive Generic For:NAMENDA 10MG TAB 12/07/2017 1:43:23 PM clopidogrel 75 mg tablet RxNorm: 246270 TAKE 1 TABLET BY MOUTH EVERY DAY 11/28/2017 06/05/2018 Inactive Generic For:*PLAVIX 75MG 11/28/2017 9:43:44 AM Ativan 0.5 mg tablet RxNorm: 455090 1 Tablet(s) PO Q6 as needed and 1/2 Tablet PO Q2 as needed 11/22/2017 No Stop Date Active Exelon Patch 9.5 mg/24 hr transdermal RxNorm: 975993 APPLY ONE (1) PATCH ONCE DAILY. 11/12/2017 03/11/2018 Inactive losartan 50 mg tablet RxNorm: 041110 TAKE 1 TABLET BY MOUTH EVERY DAY 11/05/2017 06/02/2018 Inactive Generic For:*COZAAR 50MG 11/02/2017 2:22:04 PM Exelon Patch 9.5 mg/24 hr transdermal RxNorm: 807564 APPLY ONE (1) PATCH ONCE DAILY. 10/19/2017 11/11/2017 Inactive Depakote 500 mg tablet,delayed release RxNorm: 8565338 1 Tablet(s) PO daily 10/15/2017 02/27/2018 Inactive Protonix 20 mg tablet,delayed release RxNorm: 247699 TAKE 1 TABLET BY MOUTH DAILY 08/06/2017 03/03/2018 Inactive Generic For:*PROTONIX 20MG 08/06/2017 2:35:53 PM Ativan 0.5 mg tablet RxNorm: 837743 1/2 Tablet(s) PO Q6 PRN as needed 1/2 po q 2 pm 08/02/2017 09/30/2017 Inactive Depakote 500 mg tablet,delayed release RxNorm: 0447362 1 Tablet(s) PO daily 06/22/2017 10/14/2017 Inactive Exelon Patch 9.5 mg/24 hr transdermal RxNorm: 894012 APPLY ONE (1) PATCH ONCE DAILY. 05/14/2017 10/10/2017 Inactive Protonix 20 mg tablet,delayed release RxNorm: 835631 1 Tablet(s) PO daily 05/08/2017 08/05/2017 Inactive Risperdal 0.25 mg tablet RxNorm: 107970 Tablet(s) UD .25 in am and .5 in hs and .25 prn for psychosis/hallucinations 04/26/2017 05/16/2017 Inactive Nuedexta 20 mg-10 mg capsule RxNorm: 0247951 1 Capsule(s) PO daily x 7 days then go to one cap BID 03/22/2017 04/24/2017 Inactive Ativan 0.5 mg tablet RxNorm: 168150 1/2 Tablet(s) PO Q6 PRN as needed 1/2 po q 2 pm 03/21/2017 08/01/2017 Inactive Keflex 500 mg capsule RxNorm: 984856 1 Capsule(s) PO TID 201603/05/2017 Inactive Keflex 500 mg capsule RxNorm: 474461 1 Capsule(s) PO TID 201603/15/2017 Inactive Ativan 0.5 mg tablet RxNorm: 408367 1/2 Tablet(s) PO Q6 PRN as needed 1/2 po q 2 pm 02/28/2017 03/20/2017 Inactive Protonix 20 mg tablet,delayed release RxNorm: 300566 1 Tablet(s) PO daily 02/07/2017 05/07/2017 Inactive Protonix 20 mg tablet,delayed release RxNorm: 149323 1 Tablet(s) PO daily 02/07/2017 02/06/2017 Inactive amoxicillin 500 mg capsule RxNorm: 062176 1 Capsule(s) PO TID 01/11/2017 01/10/2017 [facility]active [facility] amoxicillin 500 mg capsule RxNorm: 028423 1 Capsule(s) PO TID 01/11/2017 01/17/2017 Inactive [facility] Exelon Patch 9.5 mg/24 hr transdermal RxNorm: 798081 APPLY ONE (1) PATCH ONCE DAILY. 12/14/2016 05/12/2017 Inactive Flonase 50 mcg/actuation nasal spray,suspension RxNorm: 3482675 1 [place] each nostril NASAL BID 10/30/2016 11/28/2016 Inactive 2 spray each nostril Namenda 10 mg tablet RxNorm: 784266 1 Tablet(s) PO BID 201609/04/2017 Inactive Risperdal 0.25 mg tablet RxNorm: 713059 1 Tablet(s) PO QHS 01/22/2017 Inactive trazodone 50 mg tablet RxNorm: 221140 1.5 Tablet(s) PO QHS 03/29/2017 Inactive Exelon Patch 9.5 mg/24 hr transdermal RxNorm: 434778 APPLY ONE (1) PATCH ONCE DAILY. 07/18/2016 12/13/2016 Inactive trazodone 50 mg tablet RxNorm: 424922 1.5 Tablet(s) PO QHS 09/24/2016 Inactive Exelon Patch 9.5 mg/24 hr transdermal RxNorm: 044149 APPLY ONE (1) PATCH ONCE DAILY. 05/15/2016 05/14/2016 Inactive Exelon Patch 9.5 mg/24 hr transdermal RxNorm: 994002 APPLY ONE (1) PATCH ONCE DAILY. 05/15/2016 10/18/2017 Inactive Risperdal 0.25 mg tablet RxNorm: 931035 1 Tablet(s) PO QHS 11/201509/24/2016 Inactive Exelon Patch 9.5 mg/24 hr transdermal RxNorm: 279405 APPLY ONE (1) PATCH ONCE DAILY. 2016 No Stop Date Active Exelon Patch 9.5 mg/24 hr transdermal RxNorm: 952856 APPLY ONE (1) PATCH ONCE DAILY. 2016 02/21/2016 Inactive trazodone 50 mg tablet RxNorm: 561374 1.5 Tablet(s) PO QHS 01/201605/28/2016 Inactive simvastatin 20 mg tablet RxNorm: 401881 1 Tablet(s) PO daily 11/21/2017 Inactive clopidogrel 75 mg tablet RxNorm: 765344 1 Tablet(s) PO daily 01/31/2017 Inactive Celexa 20 mg tablet RxNorm: 504936 1 Tablet(s) PO daily 201501/31/2017 Inactive [place] Instant Breakfast Juice Drink oral liquid RxNorm: PO QHS after meals 02/02/2016 12/20/2016 Inactive Flonase 50 mcg/actuation nasal spray,suspension RxNorm: 2325706 1 [place] each nostril NASAL BID 12/02/2015 03/30/2016 Inactive 2 spray each nostril Namenda 10 mg tablet RxNorm: 139998 1 Tablet(s) PO BID 201510/06/2016 Inactive Risperdal 0.25 mg tablet RxNorm: 695858 1 Tablet(s) PO QHS 02/29/2016 Inactive Exelon Patch 9.5 mg/24 hr transdermal RxNorm: 081039 1 Patch TD daily 1 Patch TD daily 07/23/2015 01/18/2016 Inactive Exelon Patch 9.5 mg/24 hr transdermal RxNorm: 930873 1 Patch TD daily 07/20/2015 07/22/2015 Inactive Celexa 20 mg tablet RxNorm: 701895 1 Tablet(s) PO daily 201402/06/2016 Inactive Flonase 50 mcg/actuation nasal spray,suspension RxNorm: 315564 1 [place] each nostril NASAL BID 06/04/2015 10/01/2015 Inactive 2 spray each nostril Risperdal 0.25 mg tablet RxNorm: 019435 1 Tablet(s) PO QHS 08/01/2015 Inactive Exelon Patch 9.5 mg/24 hr transdermal RxNorm: 871461 1 Patch TD daily 04/28/2015 07/19/2015 Inactive Vitamin D3 2,000 unit capsule RxNorm: 772696 1 Capsule(s) PO daily 02/10/2015 03/15/2016 Inactive Calcium 600 + D(3) 600 mg (1,500 mg)-400 unit tablet RxNorm: 761552 1 Tablet(s) PO daily 02/09/2015 No Stop Date Active Celexa 20 mg tablet RxNorm: 505044 1 Tablet(s) PO daily 201412/09/2014 Inactive Celexa 20 mg tablet RxNorm: 279022 1 Tablet(s) PO daily 201407/07/2015 Inactive Flonase 50 mcg/actuation nasal spray,suspension RxNorm: 635183 1 [place] each nostril NASAL BID 11/27/2014 03/26/2015 Inactive 2 spray each nostril Casi Allergy 180 mg tablet RxNorm: 876815 1 Tablet(s) PO daily 11/19/2014 12/18/2014 Inactive Marinol 2.5 mg capsule RxNorm: 255663 1 Capsule(s) PO TID 11/1603/15/2015 Inactive [SAVINGS FOR UNINSURED PATIENTS -- BIN:[id number], PCN: [id number], Group: [id number], ID# [id number], Process claim through [employer], for questions: . THIS IS NOT INSURANCE.] Namenda 10 mg tablet RxNorm: 053349 1 Tablet(s) PO BID 201402/08/2015 Inactive Marinol 2.5 mg capsule RxNorm: 523939 1 Capsule(s) PO TID 10/1211/10/2014 Inactive Namenda 10 mg tablet RxNorm: 557732 1 Tablet(s) PO BID 201410/11/2014 Inactive Flonase 50 mcg/actuation nasal spray,suspension RxNorm: 832267 2 [place] NASAL BID 08/17/2014 11/26/2014 Inactive 2 spray each nostril Exelon Patch 9.5 mg/24 hr transdermal RxNorm: 877275 1 Patch TD daily 07/10/2014 10/07/2014 Inactive Risperdal 0.25 mg tablet RxNorm: 461724 1 Tablet(s) PO QHS 05/201405/03/2015 Inactive Namenda XR 14 mg capsule sprinkle,ER 24hr RxNorm: 163813 1 Capsule(s) PO daily 04/13/2014 10/11/2014 Inactive acyclovir 800 mg tablet RxNorm: 832428 1 Tablet(s) PO TID 03/1203/18/2014 Inactive nystatin 100,000 unit/gram topical powder RxNorm: 008972 1 Gram(s) TOP QID apply to tissue under breasts and if needed other folded skin ears with evidence of yeast infection 03/12/2014 03/21/2014 Inactive simvastatin 20 mg tablet RxNorm: 110896 1 Tablet(s) PO daily 02/15/2014 Inactive trazodone 50 mg tablet RxNorm: 791336 1 1/2 Tablet(s) PO daily 02/16/2014 02/15/2014 Inactive trazodone 50 mg tablet RxNorm: 306825 1 1/2 Tablet(s) PO daily 02/16/2014 03/17/2014 Inactive clopidogrel 75 mg tablet RxNorm: 719948 1 Tablet(s) PO daily 02/10/2015 Inactive Exelon 4.6 mg/24 hour transdermal 24 hour patch RxNorm: 765455 1 TD daily 02/16/2014 03/17/2014 Inactive simvastatin 20 mg tablet RxNorm: 782532 1 Tablet(s) PO daily 06/15/2014 Inactive Vitamin B-12 2,500 mcg sublingual tablet RxNorm: 339358 1 Tablet(s) SL daily 01/22/2014 No Stop Date Active Ativan 0.5 mg tablet RxNorm: 868968 1/2 Tablet(s) PO Q6 PRN 1/2 po q 2 pm and 1 po q 6 hours prn anxiety 10/16/20132013 Inactive Cipro 500 mg tablet RxNorm: 878178 1 Tablet(s) PO BID correction 08/04/2013 08/08/2013 Inactive Cipro 500 mg tablet RxNorm: 805838 2 Tablet(s) PO BID 201208/03/2013 Inactive Cipro 500 mg tablet RxNorm: 522995 2 Tablet(s) PO BID 201207/31/2013 Inactive Influenza Virus Vaccine 0.5 mL RxNorm: IM 07/07/2013 07/07/2013 Inactive clopidogrel 75 mg tablet RxNorm: 122490 1 Tablet(s) PO daily 02/15/2014 Inactive risperidone 0.5 mg tablet RxNorm: 881502 1 Tablet(s) PO TID 01/21/2014 Inactive atorvastatin 20 mg tablet RxNorm: 997468 1 Tablet(s) PO QPM 01/21/2014 Inactive TAKE ONE TABLET BY MOUTH EVERY DAY risperidone 0.5 mg tablet RxNorm: 031585 1 Tablet(s) PO TID 02/201306/24/2013 Inactive Risperdal 0.25 mg tablet RxNorm: 131123 Tablet(s) PO TAKE 1 TABLET AT NOON AND TAKE 1 TABLET AT NIGHT IF NEEDED FOR HALLUCINATIONS 201206/11/2013 Inactive clopidogrel 75 mg tablet RxNorm: 238473 1 Tablet(s) PO daily 06/24/2013 Inactive Risperdal 0.25 mg tablet RxNorm: 292498 1 Tablet(s) PO noon one at noon and one in night if needed for hallucinations. 09/06/2012 01/01/2013 Inactive atorvastatin 20 mg tablet RxNorm: 932826 1 Tablet(s) PO QPM 06/24/2013 Inactive TAKE ONE TABLET BY MOUTH EVERY DAY risperidone 0.5 mg tablet RxNorm: 054629 1 Tablet(s) PO BID 06/11/2013 Inactive atorvastatin 20 mg tablet RxNorm: 593882 Tablet(s) PO 201109/05/2012 Inactive TAKE ONE TABLET BY MOUTH EVERY DAY nystatin 100,000 unit/g Topical Powder RxNorm: 387930 1 Gram(s) TOP BID 08/08/2012 08/27/2012 Inactive atorvastatin 20 mg tablet RxNorm: 721301 Tablet(s) PO 201108/11/2012 Inactive TAKE ONE TABLET BY MOUTH EVERY DAY risperidone 0.5 mg tablet RxNorm: 331541 1 Tablet(s) PO BID 03/201207/12/2012 Inactive Risperdal 0.25 mg tablet RxNorm: 335215 1 Tablet(s) PO noon one at noon and one in night if needed for hallucinations. 06/13/2012 09/05/2012 Inactive clopidogrel 75 mg tablet RxNorm: 172215 1 Tablet(s) PO daily 09/05/2012 Inactive atorvastatin 20 mg tablet RxNorm: 707015 1 Tablet(s) PO daily 05/10/2012 06/08/2012 Inactive Cipro 500 mg Tab RxNorm: 644561 1 Tablet(s) PO BID 201104/11/2012 Inactive Risperdal 0.25 mg tablet RxNorm: 833065 1 Tablet(s) PO noon one at noon and one in night if needed for hallucinations. 03/22/2012 06/12/2012 Inactive Risperdal 0.25 mg Tab RxNorm: 916840 1 Tablet(s) PO noon one at noon and one in night if needed for hallucinations. 03/21/2012 03/21/2012 Inactive Vitamin D3 2,000 unit tablet RxNorm: 733920 1 Tablet(s) PO daily No Start Date Active Protonix 20 mg tablet,delayed release RxNorm: 570473 1 Tablet(s) PO daily No Start Date Active melatonin 3 mg tablet RxNorm: 713271 2 Tablet(s) PO QHS No Start Date Active Tylenol 500 mg RxNorm : 1 -2 Tablet(s) PO Q6 as needed pain or fever No Start Date Active Vitamin D3 2,000 unit capsule RxNorm: 467460 1 Capsule(s) PO daily No Start Date 02/09/2015 Inactive trazodone 50 mg tablet RxNorm: 341282 1.5 Tablet(s) PO QHS No Start Date 02/08/2016 Inactive Trazadone 25 mg RxNorm : 3 PO QHS No Start Date 02/15/2014 Inactive [place] Instant Breakfast Juice Drink oral liquid RxNorm: PO TID after meals No Start Date 02/01/2016 Inactive Vitamin B-12 2,500 mcg sublingual tablet RxNorm: 187864 1 Tablet(s) SL daily No Start Date 01/21/2014 Inactive Tums Calcium for Life Bone 300 mg (750 mg) chewable tablet RxNorm: 776473 2 Tablet (s) PO daily No Start Date 02/12/2013 Inactive calcium 300 mg chewable tablet RxNorm: 1 Tablet(s) PO daily No Start Date 12/03/2015 Inactive with vitamin d Marinol 2.5 mg capsule RxNorm: 524577 1 Capsule(s) PO ac tid No Start Date 03/11/2014 Inactive Namenda XR 14 mg capsule sprinkle,ER 24hr RxNorm: 360980 1 Capsule(s) PO daily No Start Date 04/12/2014 Inactive clopidogrel 75 mg tablet RxNorm: 548431 1 Tablet(s) PO daily No Start Date 05/09/2012 Inactive Namenda 5 mg Tab RxNorm: 897016 1 Tablet(s) PO BID No Start Date 04/12/2014 Inactive Depakote 500 mg tablet,delayed release RxNorm: 9324422 1 Tablet(s) PO daily No Start Date 06/21/2017 Inactive Zocor 20 mg tablet RxNorm: 166114 1 Tablet(s) PO daily No Start Date 08/12/2014 Inactive losartan 50 mg tablet RxNorm: 043334 1 Tablet(s) PO daily No Start Date 11/04/2017 Inactive Vitamin B-12 500 mcg tablet RxNorm: 346911 1 Tablet(s) PO daily No Start Date 07/23/2018 Inactive Depakote ER 250 mg tablet,extended release RxNorm: 3317318 1 Tablet(s) PO BID No Start Date 12/31/2013 Inactive Calcium 600 + D(3) oral RxNorm: 137723 oral No Start Date 02/08/2015 Inactive risperidone 0.5 mg tablet RxNorm: 092329 1 Tablet(s) PO BID No Start Date 06/12/2012 Inactive lorazepam 0.5 mg tablet RxNorm: 761192 1 Tablet(s) PO daily No Start Date 11/21/2017 Inactive atorvastatin 20 mg tablet RxNorm: 178335 1 Tablet(s) PO daily No Start Date 05/09/2012 Inactive Flonase 50 mcg/actuation nasal spray,suspension RxNorm: 997245 2 [place] NASAL BID No Start Date 08/16/2014 Inactive 2 spray each nostril Exelon 4.6 mg/24 hour transdermal 24 hour patch RxNorm: 490966 1 TD daily No Start Date 02/15/2014 [...] Essential (primary) hypertension ICD-10: I10 ICD-9: 401.1 06/06/2018 Mixed hyperlipidemia ICD-10: E78.2 ICD-9: 272.2 06/06/2018 [...] For Visit Effective Dates Notes memory loss 06/06/2018 memory loss 02/28/2018 memory loss 11/22/2017 memory loss 08/16/2017 memory loss 05/17/2017 memory loss 04/25/2017 memory loss 03/22/2017 memory loss 12/21/2016 memory loss 09/21/2016 memory loss 06/22/2016 memory loss 03/23/2016 memory loss 12/16/2015 memory loss 09/16/2015 memory loss 07/01/2015 anxiety 02/25/2015 cough 11/19/2014 depression 08/13/2014 depression 06/11/2014 skin lesion 04/16/2014 reported by [facility] skin lesion 03/12/2014 weight loss 02/26/2014 medication follow up 11/27/2013 anxiety 10/16/2013 memory loss 07/10/2013 --Improved vaccination against influenza 07/07/2013 memory loss 06/12/2013 hallucination 02/13/2013 hallucination 01/06/2013 rash 09/19/2012 skin lesion 08/08/2012 vaccination against influenza 07/25/2012 memory loss 05/23/2012 hallucination 04/04/2012 dementia memory loss 03/21/2012 Results Observation Observation Code Item Item Code Result Date B12 Zwg091 B12 920.00 pg/ml 07/23/2018 Valproic Acid Zku923 VALPROIC 48.0 ug/ml 07/03/2018 Hepatic Doy481 ALBUMIN 3.7 g/dL 07/03/2018 Hepatic Qfd905 TPRO 6.3 g/dL 07/03/2018 Hepatic Niq202 GLOB 2.6 g/dL 07/03/2018 Hepatic Alj254 A/G Ratio 1.4 Ratio 07/03/2018 Hepatic Asl417 ALK PHOS 67 U/L 07/03/2018 Hepatic Bii762 ALT(SGPT) 5 U/L 07/03/2018 Hepatic Xkc777 AST(SGOT) 13 U/L 07/03/2018 Hepatic Diq831 BILI T 0.4 mg/dL 07/03/2018 Hepatic Ady478 BILI D 0.1 mg/dL 07/03/2018 Hepatic Muc301 BILI I 0.3 mg/dL 07/03/2018 Urinalysis Ord28 [...] 28.3 % 02/04/2018 Cbc With Differential Ord2 Holt% 10.1 % 02/04/2018 Cbc With Differential Ord2 [...] 1.85 K/ul 02/04/2018 Cbc With Differential Ord2 [place] ABS# 0.7 K/ul 02/04/2018 Cbc With Differential Ord2 Eos ABS# 0.2 K/ul 02/04/2018 Cbc With Differential Ord2 Baso ABS# 0.0 K/ul 02/04/2018 Lipid Ord30 CHOL 161 mg/dL 02/04/2018 Lipid Ord30 HDL 47.0 mg/dl 02/04/2018 Lipid Ord30 TRIG 109 mg/dL 02/04/2018 Lipid Ord30 LDL 92 mg/dL 02/04/2018 Lipid Ord30 C/HDL 3.4 Ratio 02/04/2018 Comp Metabolic Ral708 NA 139 mEq/L 02/04/2018 Comp Metabolic Jmc282 K 4.3 mEq/L 02/04/2018 Comp Metabolic Qzh810 CL 103 mEq/L 02/04/2018 Comp Metabolic Sdb266 CO2 29.0 mEq/L 02/04/2018 Comp Metabolic Fog846 ANION GAP 11 02/04/2018 Comp Metabolic Lci045 GLUCOSE 84 mg/dL 02/04/2018 Comp Metabolic Csv481 Creat 0.5 mg/dL 02/04/2018 Comp Metabolic Zkx376 eGFR 116 ml/min/1.73m2 02/04/2018 Comp Metabolic Jpu669 BUN 7 mg/dL 02/04/2018 Comp Metabolic Lum602 B/C Ratio 13.2 Ratio 02/04/2018 Comp Metabolic Edu629 CALCIUM 8.4 mg/dL 02/04/2018 Comp Metabolic Hvu965 ALK PHOS 110 U/L 02/04/2018 Comp Metabolic Oiv349 AST(SGOT) 10 U/L 02/04/2018 Comp Metabolic Qty876 ALT(SGPT) 7 U/L 02/04/2018 Comp Metabolic Lrz091 BILI T 0.3 mg/dL 02/04/2018 Comp Metabolic Enf242 ALBUMIN 3.4 g/dL 02/04/2018 Comp Metabolic Hix103 TPRO 5.9 g/dL 02/04/2018 Comp Metabolic Iro588 GLOB 2.5 g/dL 02/04/2018 Comp Metabolic Lfm682 A/G Ratio 1.3 Ratio 02/04/2018 Comp Metabolic Cot095 Osmo 275 mOsmo 02/04/2018 Valproic Acid Dos679 VALPROIC 45.0 ug/ml 02/04/2018 Tsh Ord6 TSH (3rd IS) 2.26 uIU/mL 02/04/2018 Valproic Acid Spp666 VALPROIC 40.0 ug/ml 01/17/2018 Hepatic Msp947 ALBUMIN 3.7 g/dL 01/17/2018 Hepatic Urj407 TPRO 6.5 g/dL 01/17/2018 Hepatic Isg643 GLOB 2.8 g/dL 01/17/2018 Hepatic Asq832 A/G Ratio 1.4 Ratio 01/17/2018 Hepatic Ouw045 ALK PHOS 137 U/L 01/17/2018 Hepatic Dbl372 ALT(SGPT) 7 U/L 01/17/2018 Hepatic Xbe951 AST(SGOT) 11 U/L 01/17/2018 Hepatic Wmw850 BILI T 0.4 mg/dL 01/17/2018 Hepatic Ese047 BILI D 0.1 mg/dL 01/17/2018 Hepatic Svj619 BILI I 0.3 mg/dL 01/17/2018 Valproic Acid Uwu535 VALPROIC 38.0 ug/ml 01/03/2018 Cbc With Differential [...] 29.2 pg 01/03/2018 Cbc With Differential Ord2 [place]% 13.9 % 01/03/2018 Cbc With Differential Ord2 [...] 1.94 K/ul 01/03/2018 Cbc With Differential Ord2 [place] ABS# 1.0 K/ul 01/03/2018 Cbc With Differential [...] Ord15 CALCIUM 8.2 mg/dL 01/03/2018 Valproic Acid Cke823 VALPROIC 39.0 ug/ml 01/02/2018 Comp Metabolic Vjo638 NA 136 mEq/L 01/02/2018 Comp Metabolic Riy282 K 4.1 mEq/L 01/02/2018 Comp Metabolic Ops652 CL 103 mEq/L 01/02/2018 Comp Metabolic Aks537 CO2 24.0 mEq/L 01/02/2018 Comp Metabolic Uwy145 ANION GAP 13 01/02/2018 Comp Metabolic Uce316 GLUCOSE 135 mg/dL 01/02/2018 Comp Metabolic Cde553 Creat 0.6 mg/dL 01/02/2018 Comp Metabolic Jzh748 eGFR 99 ml/min/1.73m2 01/02/2018 Comp Metabolic Rvg426 BUN 7 mg/dL 01/02/2018 Comp Metabolic Ila494 B/C Ratio 11.5 Ratio 01/02/2018 Comp Metabolic Tqv027 CALCIUM 8.8 mg/dL 01/02/2018 Comp Metabolic Amz951 ALK PHOS 75 U/L 01/02/2018 Comp Metabolic Xmp567 AST(SGOT) 13 U/L 01/02/2018 Comp Metabolic Xcf079 ALT(SGPT) 7 U/L 01/02/2018 Comp Metabolic Qvn077 BILI T 0.2 mg/dL 01/02/2018 Comp Metabolic Hkw497 ALBUMIN 3.9 g/dL 01/02/2018 Comp Metabolic Gml571 TPRO 6.5 g/dL 01/02/2018 Comp Metabolic Yku675 GLOB 2.6 g/dL 01/02/2018 Comp Metabolic Rlb070 A/G Ratio 1.5 Ratio 01/02/2018 Comp Metabolic Jvc333 Osmo 272 mOsmo 01/02/2018 Cbc With Differential [...] 29.7 pg 01/02/2018 Cbc With Differential Ord2 [place]% 11.5 % 01/02/2018 Cbc With Differential Ord2 [...] 1.24 K/ul 01/02/2018 Cbc With Differential Ord2 [place] ABS# 1.1 K/ul 01/02/2018 Cbc With Differential [...] Urinalysis Ord28 U-Yeast NEGATIVE 12/28/2017 Valproic Acid Zsw240 VALPROIC 38.0 ug/ml 11/22/2017 Valproic Acid Ggn328 VALPROIC 44.0 ug/ml 10/22/2017 Hepatic Ktd462 ALBUMIN 3.3 g/dL 10/22/2017 Hepatic Fop156 TPRO 5.7 g/dL 10/22/2017 Hepatic Jtt999 GLOB 2.4 g/dL 10/22/2017 Hepatic Ivb979 A/G Ratio 1.4 Ratio 10/22/2017 Hepatic Dhr911 ALK PHOS 72 U/L 10/22/2017 Hepatic Pqo716 ALT(SGPT) 5 U/L 10/22/2017 Hepatic Fgu045 AST(SGOT) 9 U/L 10/22/2017 Hepatic Dob932 BILI T 0.3 mg/dL 10/22/2017 Hepatic Uhc463 BILI D 0.0 mg/dL 10/22/2017 Hepatic Lkm371 BILI I 0.3 mg/dL 10/22/2017 Hepatic Slb578 ALBUMIN 3.8 g/dL 09/20/2017 Hepatic Ppe512 TPRO 6.3 g/dL 09/20/2017 Hepatic Qtj688 GLOB 2.5 g/dL 09/20/2017 Hepatic Tmq305 A/G Ratio 1.5 Ratio 09/20/2017 Hepatic Mnf283 ALK PHOS 67 U/L 09/20/2017 Hepatic Vxo506 ALT(SGPT) 5 U/L 09/20/2017 Hepatic Lgo718 AST(SGOT) 11 U/L 09/20/2017 Hepatic Xgo812 BILI T 0.4 mg/dL 09/20/2017 Hepatic Coz663 BILI D 0.1 mg/dL 09/20/2017 Hepatic Rgu241 BILI I 0.3 mg/dL 09/20/2017 Valproic Acid Xqs189 VALPROIC 10.0 ug/ml 09/20/2017 Valproic Acid Jfg951 VALPROIC 44.0 ug/ml 08/23/2017 Hepatic Zqj653 ALBUMIN 3.5 g/dL 08/23/2017 Hepatic Zsh166 TPRO 6.1 g/dL 08/23/2017 Hepatic Ljl254 GLOB 2.6 g/dL 08/23/2017 Hepatic Nvi339 A/G Ratio 1.4 Ratio 08/23/2017 Hepatic Kme605 ALK PHOS 63 U/L 08/23/2017 Hepatic Nwi807 ALT(SGPT) 5 U/L 08/23/2017 Hepatic Lax721 AST(SGOT) 9 U/L 08/23/2017 Hepatic Iri146 BILI T 0.3 mg/dL 08/23/2017 Hepatic Ffw567 BILI D 0.1 mg/dL 08/23/2017 Hepatic Wnq621 BILI I 0.2 mg/dL 08/23/2017 Hepatic Qex296 ALBUMIN 3.5 g/dL 07/23/2017 Hepatic Gfm279 TPRO 5.9 g/dL 07/23/2017 Hepatic Ykg518 GLOB 2.4 g/dL 07/23/2017 Hepatic Icr094 A/G Ratio 1.5 Ratio 07/23/2017 Hepatic Hgz394 ALK PHOS 61 U/L 07/23/2017 Hepatic Xrt116 ALT(SGPT) 6 U/L 07/23/2017 Hepatic Lcs286 AST(SGOT) 11 U/L 07/23/2017 Hepatic Ycz654 BILI T 0.3 mg/dL 07/23/2017 Hepatic Kzj760 BILI D 0.1 mg/dL 07/23/2017 Hepatic Ocz458 BILI I 0.2 mg/dL 07/23/2017 Valproic Acid Jgb041 VALPROIC 37.0 ug/ml 07/23/2017 Hepatic Vzr075 ALBUMIN 3.6 g/dL 06/26/2017 Hepatic Stu629 TPRO 6.0 g/dL 06/26/2017 Hepatic Nei519 GLOB 2.4 g/dL 06/26/2017 Hepatic Wha959 A/G Ratio 1.5 Ratio 06/26/2017 Hepatic Apj708 ALK PHOS 64 U/L 06/26/2017 Hepatic Zgs056 ALT(SGPT) 8 U/L 06/26/2017 Hepatic Pae817 AST(SGOT) 11 U/L 06/26/2017 Hepatic Gxu512 BILI T 0.3 mg/dL 06/26/2017 Hepatic Bif767 BILI D 0.1 mg/dL 06/26/2017 Hepatic Pgn463 BILI I 0.2 mg/dL 06/26/2017 Valproic Acid Ylb533 VALPROIC 45.0 ug/ml 06/26/2017 Comp Metabolic Auy981 NA 140 mEq/L 05/18/2017 Comp Metabolic Jtr586 K 4.2 mEq/L 05/18/2017 Comp Metabolic Rre850 CL 103 mEq/L 05/18/2017 Comp Metabolic Sjb439 CO2 27.0 mEq/L 05/18/2017 Comp Metabolic Nsp468 ANION GAP 14 05/18/2017 Comp Metabolic Fmr241 GLUCOSE 85 mg/dL 05/18/2017 Comp Metabolic Qdu154 Creat 0.6 mg/dL 05/18/2017 Comp Metabolic Kqh497 eGFR 109 ml/min/1.73m2 05/18/2017 Comp Metabolic Ljc094 BUN 8 mg/dL 05/18/2017 Comp Metabolic Mzv371 B/C Ratio 14.3 Ratio 05/18/2017 Comp Metabolic Cqj481 CALCIUM 8.6 mg/dL 05/18/2017 Comp Metabolic Cdg139 ALK PHOS 85 U/L 05/18/2017 Comp Metabolic Sdb550 AST(SGOT) 10 U/L 05/18/2017 Comp Metabolic Ftq912 ALT(SGPT) 6 U/L 05/18/2017 Comp Metabolic Fio090 BILI T 0.4 mg/dL 05/18/2017 Comp Metabolic Mxo707 ALBUMIN 3.7 g/dL 05/18/2017 Comp Metabolic Eet058 TPRO 6.3 g/dL 05/18/2017 Comp Metabolic Xpu011 GLOB 2.6 g/dL 05/18/2017 Comp Metabolic Ayh864 A/G Ratio 1.4 Ratio 05/18/2017 Comp Metabolic Rtr042 Osmo 277 mOsmo 05/18/2017 Bili D Ord93 BILI D 0.1 mg/dL 05/18/2017 Bili D Ord93 BILI I 0.3 mg/dL 05/18/2017 Valproic Acid Btq060 VALPROIC 27.0 ug/ml 05/18/2017 Urinalysis Ord28 U-Color [...] 04/11/2017 Urinalysis Ord28 U-Yeast NEGATIVE 04/11/2017 A1C 0663250 A1C HPLC 50150-3 5.9 % 07/08/2013 LIPID GRP HDL TEST 47 MG/DL 07/07/2013 LIPID GRP TRIG 121 MG/DL 07/07/2013 LIPID GRP TEST LDL 63 MG/DL 07/07/2013 LIPID GRP CHOL 134 MG/DL 07/07/2013 LIPID GRP RCHOL/HDL 2.85 RATIO 07/07/2013 CBC 3468977 WBC 8.9 10e9/L 07/07/2013 CBC 7921015 RBC 4.27 10e12/L 07/07/2013 CBC 0578971 HGB 12.7 g/dL 07/07/2013 CBC 5674034 HCT DET 39.0 % 07/07/2013 CBC 7593005 MCV 91.3 fL 07/07/2013 CBC 1841202 MCH 29.7 pg 07/07/2013 CBC 7538190 MCHC 32.6 g/dL 07/07/2013 CBC 3991073 PLT 273 10e9/L 07/07/2013 CBC 8800940 MPV 11.0 fL 07/07/2013 CBC 1592044 TORREY % 69.1 % 07/07/2013 CBC 7699067 LY % 19.6 % 07/07/2013 CBC 7128779 MON % 8.5 % 07/07/2013 CBC 7458439 EOS % 2.6 % 07/07/2013 CBC 2634421 BASO % 0.2 % 07/07/2013 CBC 5256967 RDW 13.0 % 07/07/2013 CBC 0631780 ABS TORREY 6.15 10e9/L 07/07/2013 CBC 1120468 ABS LYMPH 1.74 10e9/L 07/07/2013 CBC 6866327 ABS MONO 0.76 10e9/L 07/07/2013 CBC 4530365 ABS EOS 0.23 10e9/L 07/07/2013 CBC 8748955 ABS BASO 0.02 10e9/L 07/07/2013 CBC 3506278 RDW-SD 42.3 fL 07/07/2013 GFR CALC 9125086 GFR AA >60 ML/MIN 07/07/2013 GFR CALC 8438107 GFR NON-AA >60 ML/MIN 07/07/2013 CHEM 14 20280411 AST 14 U/L 07/07/2013 CHEM 14 20280411 ALT 10 IU/L 07/07/2013 CHEM 14 20280411 BUN 11 MG/DL 07/07/2013 CHEM 14 0613286 ALBUMIN 4.1 GM/DL 07/07/2013 CHEM 14 20280411 CHLORIDE 107 MMOL/L 07/07/2013 CHEM 14 20280411 BILI TOT 0.4 MG/DL 07/07/2013 CHEM 14 3493446 ALK PHOS 54 U/L 07/07/2013 CHEM 14 1471707 SODIUM 141 MMOL/L 07/07/2013 CHEM 14 1902333 CREATININE 0.70 MG/DL 07/07/2013 CHEM 14 9659610 CALCIUM 9.0 MG/DL 07/07/2013 CHEM 14 8581281 POTASSIUM 4.2 MMOL/L 07/07/2013 CHEM 14 4938988 PROT TOT 6.5 GM/DL 07/07/2013 CHEM 14 3096213 GLUCOSE 102 MG/DL 07/07/2013 CHEM 14 3703561 BICARB 28 MMOL/L 07/07/2013 CHEM 14 2722350 ANION GAP 6 MEQ/L 07/07/2013 CHEM 14 0887985 AST 14 U/L 01/06/2013 CHEM 14 2772147 ALT 12 IU/L 01/06/2013 CHEM 14 4351332 BUN 9 MG/DL 01/06/2013 CHEM 14 3085758 ALBUMIN 4.2 GM/DL 01/06/2013 CHEM 14 0875032 CHLORIDE 108 MMOL/L 01/06/2013 CHEM 14 4200697 BILI TOT 0.4 MG/DL 01/06/2013 CHEM 14 5578106 ALK PHOS 74 U/L 01/06/2013 CHEM 14 9341158 SODIUM 142 MMOL/L 01/06/2013 CHEM 14 9567553 CREATININE 0.62 MG/DL 01/06/2013 CHEM 14 2822990 CALCIUM 9.0 MG/DL 01/06/2013 CHEM 14 2900434 POTASSIUM 4.3 MMOL/L 01/06/2013 CHEM 14 5402758 PROT TOT 6.6 GM/DL 01/06/2013 CHEM 14 2793806 GLUCOSE 94 MG/DL 01/06/2013 CHEM 14 8538024 BICARB 25 MMOL/L 01/06/2013 CHEM 14 2078738 ANION GAP 9 MEQ/L 01/06/2013 CBC 3518492 WBC 7.2 10e9/L 01/06/2013 CBC 6578982 RBC 4.22 10e12/L 01/06/2013 CBC 5685729 HGB 12.6 g/dL 01/06/2013 CBC 9353022 HCT DET 38.3 % 01/06/2013 CBC 0375935 MCV 90.8 fL 01/06/2013 CBC 2708384 MCH 29.9 pg 01/06/2013 CBC 8386435 MCHC 32.9 g/dL 01/06/2013 CBC 3007206 PLT 287 10e9/L 01/06/2013 CBC 1390246 MPV 11.0 fL 01/06/2013 CBC 2263569 TORREY % 68.0 % 01/06/2013 CBC 0394856 LY % 21.6 % 01/06/2013 CBC 5165398 MON % 9.0 % 01/06/2013 CBC 9781753 EOS % 1.3 % 01/06/2013 CBC 9821814 BASO % 0.1 % 01/06/2013 CBC 1063474 RDW 13.3 % 01/06/2013 CBC 3599424 ABS TORREY 4.90 10e9/L 01/06/2013 CBC 3326994 ABS LYMPH 1.56 10e9/L 01/06/2013 CBC 6656292 ABS MONO 0.65 10e9/L 01/06/2013 CBC 2524696 ABS EOS 0.09 10e9/L 01/06/2013 CBC 2129616 ABS BASO 0.01 10e9/L 01/06/2013 CBC 4581012 RDW-SD 43.0 fL 01/06/2013 VIT B 12 9355520 VIT B 12 >2000 PG/ML 01/06/2013 TSH 4516353 TSH 1.814 uIU/ML 01/06/2013 GFR CALC 0438859 GFR AA >60 ML/MIN 01/06/2013 GFR CALC 3831989 GFR NON-AA >60 ML/MIN 01/06/2013 FREE T4 3139036 FREE T4 1.19 NG/DL 01/06/2013 URINALYSIS NONAUTO W/O SCOPE 01103 Specific [place] 1.020 DateTime(Free Text in Aprima) URINALYSIS NONAUTO W/O SCOPE 31933 PH 6.0 DateTime(Free Text in Aprima) URINALYSIS NONAUTO W/O SCOPE 37213 GLUCOSE negative DateTime(Free Text in Aprima) URINALYSIS NONAUTO W/O SCOPE 42995 Protein negative DateTime(Free Text in Aprima) URINALYSIS NONAUTO W/O SCOPE 45349 Blood negative DateTime( Free Text in Aprima) URINALYSIS NONAUTO W/O SCOPE 67306 Bilirubin negative DateTime(Free Text in Aprima) URINALYSIS NONAUTO W/O SCOPE 22323 Ketones trace DateTime(Free Text in Aprima) URINALYSIS NONAUTO W/O SCOPE 46537 Urobilinogen negative DateTime(Free Text in Aprima) URINALYSIS NONAUTO W/O SCOPE 78109 Nitrite negative DateTime(Free Text in Aprima) URINALYSIS NONAUTO W/O SCOPE 78265 Leukocytes 1+ DateTime(Free Text in Aprima) URINALYSIS NONAUTO W/O SCOPE 11630 Specific [place] 1.005 DateTime(Free Text in Aprima) URINALYSIS NONAUTO W/O SCOPE 49512 PH 5 DateTime(Free Text in Aprima) URINALYSIS NONAUTO W/O SCOPE 36072 GLUCOSE neg DateTime( Free Text in Aprima) URINALYSIS NONAUTO W/O SCOPE 34291 Protein neg DateTime( Free Text in Aprima) URINALYSIS NONAUTO W/O SCOPE 13214 Blood neg DateTime(Free Text in Aprima) URINALYSIS NONAUTO W/O SCOPE 77627 Bilirubin neg DateTime(Free Text in Aprima) URINALYSIS NONAUTO W/O SCOPE 41053 Ketones neg DateTime( Free Text in Aprima) URINALYSIS NONAUTO W/O SCOPE 55857 Urobilinogen neg DateTime(Free Text in Aprima) URINALYSIS NONAUTO W/O SCOPE 17653 Nitrite neg DateTime( Free Text in Aprima) URINALYSIS NONAUTO W/O SCOPE 57341 Leukocytes neg DateTime(Free Text in Aprima) URINALYSIS NONAUTO W/O SCOPE 90342 Specific [place] 1.010 DateTime(Free Text in Aprima) URINALYSIS NONAUTO W/O SCOPE 46397 PH 6 DateTime(Free Text in Aprima) URINALYSIS NONAUTO W/O SCOPE 87622 GLUCOSE DateTime( Free Text in Aprima) URINALYSIS NONAUTO W/O SCOPE 73097 Protein DateTime( Free Text in Aprima) URINALYSIS NONAUTO W/O SCOPE 96776 Blood DateTime(Free Text in Aprima) URINALYSIS NONAUTO W/O SCOPE 56885 Bilirubin DateTime( Free Text in Aprima) URINALYSIS NONAUTO W/O SCOPE 78290 Ketones DateTime( Free Text in Aprima) URINALYSIS NONAUTO W/O SCOPE 66015 Urobilinogen DateTime (Free Text in Aprima) URINALYSIS NONAUTO W/O SCOPE 03482 Nitrite DateTime( Free Text in Aprima) URINALYSIS NONAUTO W/O SCOPE 66701 Leukocytes trace DateTime(Free Text in Apr) Review of Systems System Result Effective Dates Constitutional No anorexia 06/06/2018 Constitutional No night [...] affect 10/16/2013 None Full Exam - General 1995 Respiratory respiratory effort/rhythm Overall: no retractions 07/10/2013 None Full Exam - General 1995 Respiratory respiratory effort/rhythm Overall: normal rate 07/10/2013 None Full Exam - General 1995 Cardiovascular extremities Overall: no clubbing 07/10/2013 None Full Exam - General 1995 Cardiovascular [...] masses 07/10/2013 None Full Exam - General 1995 Respiratory auscultation Overall: breath sounds clear bilaterally 07/10/2013 None Full Exam - General 1994 Musculoskeletal head and neck Overall: cervical spine benign 07/10/2013 None Full Exam - General 1995 Neurologic deep tendon reflexes Overall: deep tendon reflexes intact 07/10/2013 None Full Exam - General 1995 Neurologic gait Conventional walking: wide-based 07/10/2013 None [...] masses 02/13/2013 None Full Exam - General 1995 Respiratory auscultation Overall: breath sounds clear bilaterally 02/13/2013 None Full Exam - General 1995 Respiratory respiratory effort/rhythm Overall: no retractions 02/13/2013 [...] benign 09/19/2012 None Full Exam - General 1995 Lymphatic neck nodes Overall: posterior cervical chain benign 09/19/2012 None Full Exam - General 1995 Musculoskeletal [...] FLU VACC PRSV FREE INC ANTIG CPT-4: 99810 06/22/2016 ADMIN PNEUMOCOCCAL VACCINE SNOMED CT: 20399852 CPT-4: G0009 09/16/2015 PNEUMOCOCCAL VACC 13 QUYEN IM Formatting Model/CDA Sections, Assigned to SNOMED CT: 66979312 CPT-4: 00205Luvhtpc 09/16/2015 ADMIN INFLUENZA VIRUS VAC Formatting Model/CDA Sections, Assigned to/Arabella Sharma CPT-4: U0428Tbwemvr 07/01/2015 FLU VACC 4 QUYEN 3 YRS PLUS IM SNOMED CT: 51622480 CPT-4: 76676 07/01/2015 FLU VAC NO PRSV 4 QUYEN 3 YRS+ CPT-4: 79071 06/11/2014 ADMIN INFLUENZA VIRUS VAC Assigned to/Arabella Sharma CPT-4: W4328Kyfaeoz 06/11/2014 URINALYSIS NONAUTO W/O SCOPE CPT-4: 04855 07/31/2013 ADMIN INFLUENZA VIRUS VAC CPT-4: G0008 07/07/2013 FLULAVAL VACC, 3 YRS & >, IM CPT-4: Q2036 07/07/2013 ROUTINE VENIPUNCTURE CPT-4: 16986 07/07/2013 20084 EST. PATIENT, LEVEL IV CPT-4: 83408 06/12/2013 45943 EST. PATIENT, LEVEL IV CPT-4: 92320 02/13/2013 ROUTINE VENIPUNCTURE CPT-4: 14153 01/06/2013 URINALYSIS NONAUTO W/O SCOPE CPT-4: 76170 01/06/2013 30669 EST. PATIENT, LEVEL IV CPT-4: 41757 09/19/2012 URINALYSIS NONAUTO W/O SCOPE CPT-4: 32599 09/19/2012 IMMUNIZATION ADMIN CPT -4: 37444 07/25/2012 Influenza Virus Vaccine, Split Virus, >3 Yrs, IM CPT-4: 95512 07/25/2012 URINALYSIS NONAUTO W/O SCOPE CPT-4: 22670 05/23/2012 URINALYSIS NONAUTO W/O SCOPE CPT-4: 20826 04/05/2012 Vital Signs Date Vital 06/06/2018 Blood Pressure 1: 140/70 Code : 8480-6 BMI: 29.1 Code : 10923-5 Heart Rate 1 : 72 bpm Height: 5'2" SpO2: 94% Weight: 159 lbs 02/28/2018 Blood Pressure 1: 140/76 Code : 8480-6 BMI: 28.9 Code : 86975-7 Heart Rate 1 : 69 bpm Height: 5'2" SpO2: 97% Weight: 158 lbs 11/22/2017 Blood Pressure 1: 146/84 Code : 8480-6 BMI: 29.4 Code : 40080-7 Heart Rate 1 : 72 bpm Height: 5'2" SpO2: 96% Weight: 161 lbs 08/16/2017 Blood Pressure 1: 130/68 Code : 8480-6 BMI: 28.9 Code : 32886-0 Heart Rate 1 : 63 bpm Height: 5'2" SpO2: 96% Weight: 158 lbs 05/17/2017 Blood Pressure 1: 138/80 Code : 8480-6 Heart Rate 1: 88 bpm Height: SpO2: 96% Weight: 04/25/2017 Blood Pressure 1: 140/74 Code : 8480-6 BMI: 29.8 Code : 09206-3 Heart Rate 1 : 106 bpm Height: 5'2" SpO2: 96% Weight: 163 lbs 03/22/2017 Blood Pressure 1: 128/82 Code : 8480-6 BMI: 30.4 Code : 89758-9 Heart Rate 1 : 76 bpm Height: 5'2" SpO2: 95% Weight: 166 lbs 12/21/2016 Blood Pressure 1: 144/80 Code : 8480-6 BMI: 30.9 Code : 55958-1 Heart Rate 1 : 72 bpm Height: 5'2" SpO2: 98% Weight: 169 lbs 09/21/2016 Blood Pressure 1: 140/76 Code : 8480-6 BMI: 30.5 Code : 47744-7 Heart Rate 1 : 78 bpm Height: 5'2" SpO2: 97% Weight: 167 lbs 06/22/2016 Blood Pressure 1: 132/74 Code : 8480-6 BMI: 30.9 Code : 30331-8 Heart Rate 1 : 71 bpm Height: 5'2" SpO2: 98% Weight: 169 lbs 03/23/2016 Blood Pressure 1: 122/68 Code : 8480-6 BMI: 29.8 Code : 07433-9 Heart Rate 1 : 68 bpm Height: 5'2" SpO2: 98% Weight: 163 lbs 12/16/2015 Blood Pressure 1: 142/70 Code : 8480-6 BMI: 30.5 Code : 01504-6 Heart Rate 1 : 68 bpm Height: 5'2" SpO2: 98% Weight: 167 lbs 09/16/2015 Blood Pressure 1: 124/58 Code : 8480-6 BMI: 30.0 Code : 25727-7 Heart Rate 1 : 59 bpm Height: 5'2" SpO2: 96% Weight: 164 lbs 07/01/2015 Blood Pressure 1: 128/74 Code : 8480-6 BMI: 29.8 Code : 63110-5 Heart Rate 1 : 62 bpm Height: 5'2" SpO2: 98% Weight: 163 lbs 02/25/2015 Blood Pressure 1: 142/92 Code : 8480-6 Blood Pressure 2: 138/90 Code: 8480-6 BMI: 29.1 Code: 98513-6 Heart Rate 1: 78 bpm Height: 5'2" SpO2: 98% Weight: 159 lbs 11/19/2014 Blood Pressure 1: 130/80 Code : 8480-6 BMI: 28.3 Code : 40609-6 Heart Rate 1 : 68 bpm Height: 5'2" Weight: 155 lbs 08/13/2014 Blood Pressure 1: 122/62 Code : 8480-6 BMI: 27.4 Code : 64176-9 Heart Rate 1 : 72 bpm Height: 5'2" Weight: 150 lbs 06/11/2014 Blood Pressure 1: 112/56 Code : 8480-6 BMI: 27.0 Code : 65155-3 Heart Rate 1 : 67 bpm Height: 5'2" SpO2: 98% Weight: 147 lbs 8 oz 04/16/2014 Blood Pressure 1: 120/62 Code : 8480-6 BMI: 26.7 Code : 78140-4 Heart Rate 1 : 68 bpm Height: 5'2" Weight: 146 lbs 03/12/2014 Blood Pressure 1: 132/82 Code : 8480-6 BMI: 27.1 Code : 41927-8 Heart Rate 1 : 64 bpm Height: 5'2" Weight: 148 lbs 02/26/2014 Blood Pressure 1: 104/50 Code : 8480-6 BMI: 25.8 Code : 51726-8 Heart Rate 1 : 64 bpm Height: 5'2" Weight: 141 lbs 11/27/2013 Blood Pressure 1: 122/68 Code : 8480-6 Heart Rate 1: 60 bpm Weight: 153 lbs 10/16/2013 Blood Pressure 1: 136/72 Code : 8480-6 BMI: 27.4 Code : 30459-0 Heart Rate 1 : 80 bpm Height: 5'2" Weight: 150 lbs 07/10/2013 Blood Pressure 1: 126/76 Code : 8480-6 BMI: 27.3 Code : 33646-4 Heart Rate 1 : 80 bpm Height: 5'2" Weight: 149 lbs 06/12/2013 Blood Pressure 1: 168/80 Code : 8480-6 BMI: 27.3 Code : 13738-5 Heart Rate 1 : 76 bpm Height: 5'2" Weight: 149 lbs 8 oz 02/13/2013 Blood Pressure 1: 108/72 Code : 8480-6 BMI: 27.4 Code : 24000-6 Heart Rate 1 : 80 bpm Height: 5'2" Weight: 150 lbs 01/06/2013 Blood Pressure 1: 126/62 Code : 8480-6 BMI: 27.6 Code : 41888-4 Heart Rate 1 : 76 bpm Height: [...] Code : 8480-6 BMI: 27.8 Code : 65563-0 Heart Rate 1 : 80 bpm Height: [...] dizzy spell yesterday while eating lunch. Took 10/11 meclizine-states it helped but it put her [...] Present Encounters Encounter Performer Location Codes Date ([id number]) 99264 EST. 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 PATIENT, LEVEL IV Diagnosis: Mixed hyperlipidemia[ICD10: E78.2] Diagnosis: Dementia with Lewy bodies[ICD10: G31.83] Diagnosis: Major depressive disorder, recurrent, mild[ICD10: F33.0] Allie Mcneill MD, [facility] CPT-4: 69436 12/21/2016 ([id number]) 22805 EST. PATIENT, LEVEL IV Diagnosis: Dementia with Lewy bodies[ICD10: G31.83] Diagnosis: Mixed hyperlipidemia[ICD10: E78.2] Diagnosis: Encounter for immunization[ICD10: Z23] Diagnosis: Major depressive disorder, recurrent, mild[ICD10: F33.0] Allie Mcneill MD [facility] CPT-4: 07424 09/21/2016 ([id number]) 74248 EST. PATIENT, LEVEL III Diagnosis: Encounter for immunization[ICD10: Z23] Diagnosis: Dementia with Lewy bodies[ICD10: G31.83] Diagnosis: Major depressive disorder, recurrent, mild[ICD10: F33.0] Allie Mcneill MD, [facility] CPT-4: 79906 06/22/2016 ([id number]) 99715 EST. PATIENT, LEVEL III Diagnosis: Mixed hyperlipidemia[ICD10: E78.2] Diagnosis: Dementia with Lewy bodies[ICD10: G31.83] Allie Mcneill MD [facility] CPT-4: 64361 03/23/2016 ([id number]) 29176 EST. PATIENT, LEVEL IV Diagnosis: Dementia with Lewy bodies[ICD10: G31.83] Diagnosis: Other hallucinations[ICD10: R44.2] Diagnosis: Mixed hyperlipidemia[ICD10: E78.2] Allie Mcneill MD, [facility] CPT-4: 14997 12/16/2015 ([id number]) 34180 EST. PATIENT, LEVEL IV Diagnosis: Dementia with Lewy bodies[ICD10: G31.83] Diagnosis: Other hallucinations[ICD10: R44.2] Diagnosis: Mixed hyperlipidemia[ICD10: E78.2] Diagnosis: Encounter for immunization[ICD10: Z23] Allie Mcneill MD, [facility] CPT-4: 09741 09/16/2015 ([id number]) 52122 EST. 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 PATIENT, LEVEL IV Diagnosis: HYPERLIPIDEMIA[ICD9: 272.4] Diagnosis: Dementia[ICD9: 294.20] Diagnosis: LEWY BODY DEMENTIA[ICD9: 331.82] Allie Mcneill MD, [facility] CPT-4: 64573 02/25/2015 ([id number]) 02152 EST. PATIENT, LEVEL IV Diagnosis: HYPERLIPIDEMIA[ICD9: 272.4] Diagnosis: Dementia[ICD9: 294.20] Diagnosis: LEWY BODY DEMENTIA[ICD9: 331.82] Allie Mcneill MD, [facility] CPT-4: 08854 11/19/2014 ([id number]) 66576 EST. PATIENT, LEVEL IV Diagnosis: HYPERLIPIDEMIA[ICD9: 272.4] Diagnosis: LEWY BODY DEMENTIA[ICD9: 331.82] Allie Mcneill MD, [facility] CPT-4: 51308 08/13/2014 ([id number]) 85356 EST. PATIENT, LEVEL IV Diagnosis: LEWY BODY DEMENTIA[ICD9: 331.82] Diagnosis: Psychosis[ICD9: 298.9] Allie Mcneill MD, [facility] CPT-4: 02386 06/11/2014 ([id number]) 72109 EST. PATIENT, LEVEL III Diagnosis: Lewy body dementia with behavioral disturbance[ICD9: 331.82] Diagnosis: Ulcer of gingiva[ICD9: 523.8] Shari Mcneill MD, [facility] CPT-4: 61679 04/16/2014 ([id number]) 82190 EST. PATIENT, LEVEL IV Diagnosis: Shingles[ICD9: 053.9] Diagnosis: Oral aphthae[ICD9: 528.2] Diagnosis: Yeast infection of the skin[ICD9: 112.3] Allie Mcneill MD, [facility] CPT-4: 71223 03/12/2014 ([id number]) 01392 EST. PATIENT, LEVEL IV Diagnosis: DEMEN NOS 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[ICD9: 294.20] Diagnosis: LEWY BODY DEMENTIA[ICD9: 331.82] Diagnosis: Impacted cerumen of both ears[ICD9: 380.4] Diagnosis: Weight loss[ICD9: 783.21] Diagnosis: Shingles rash[ICD9: 053.9] Allie Mcneill MD, [facility] CPT- 4: 55734 02/26/2014 ([id number]) 73402 EST. PATIENT, LEVEL IV Diagnosis: SENILE DELUSION[ICD9: 290.20] Diagnosis: LEWY BODY DEMENTIA[ICD9: 331.82] Diagnosis: HALLUCINATIONS[ICD9: 780.1] Diagnosis: PSYCHOSIS[ICD9: 298.9] Allie Mcneill MD [facility] CPT-4: 83769 11/27/2013 ([id number]) 89386 EST. PATIENT, LEVEL IV Diagnosis: LEWY BODY DEMENTIA[ICD9: 331.82] Diagnosis: HALLUCINATIONS[ICD9: 780.1] Diagnosis: PSYCHOSIS[ICD9: 298.9] Allie Mcneill MD [facility] CPT-4: 21755 10/16/2013 ([id number]) 71850 EST. PATIENT, LEVEL III Diagnosis: LEWY BODY DEMENTIA[ICD9: 331.82] Diagnosis: HALLUCINATIONS[ICD9: 780.1] Allie Mcneill MD, [facility] CPT- 4: 26245 07/10/2013 ([id number]) 58577 EST. PATIENT, LEVEL IV Diagnosis: LEWY BODY DEMENTIA[ICD9: 331.82] Diagnosis: HALLUCINATIONS[ICD9: 780.1] Diagnosis: Dehydration[ICD9: 276.51] Diagnosis: Dementia[ICD9: 294.20] Allie Mcneill MD [facility] CPT-4: 10446 01/06/2013 94292 EST. PATIENT, LEVEL III Diagnosis: Candidiasis of breast[ICD9: 112.2] Diagnosis: Seborrheic keratosis[ICD9: 702.19] Diagnosis: Dry skin[ICD9: 782.9] Shari Tal Mcneill MD, [facility] CPT-4: 12062 08/08/2012 ([id number]) 52774 EST. PATIENT, LEVEL IV Diagnosis: LEWY BODY DEMENTIA[ICD9: 331.82] Diagnosis: HALLUCINATIONS[ICD9: 780.1] Allie Mcneill MD, [facility] CPT- 4: 26929 05/23/2012 ([id number]) 03752 EST. PATIENT, LEVEL IV Diagnosis: HALLUCINATIONS[ICD9: 780.1] Diagnosis: LEWY BODY DEMENTIA[ICD9: 331.82] Allie Mcneill MD, [facility] CPT-4: 05375 04/04/2012 ([id number]) 24399 EST. PATIENT, LEVEL IV Diagnosis: Lewy body dementia with behavioral disturbance[ICD9: 331.82] Diagnosis: Hallucinations[ICD9: 780.1] Diagnosis: INSOMNIA IN OTHER DIS[ICD9: 327.01] Allie Mcneill MD, [facility] CPT-4: 87977 03/21/2012 Plan of Care Planned Activity Notes [...] stop plavix. 06/06/2018 Appointment: Allie Mcneill WPtel: [address] [place], [place] [address] (15 min) Moderate 06/06/2018 Patient Education: Patient [...] current management. 02/28/2018 Appointment: All[facility]ill [facility]el[facility] ([facility] min) Moderate 02/28/2018 Patient Education: Patient [...] management. 11/22/2017 Appointment: [facility] [phone] [facility] (15 min) Moderate 11/22/2017 Patient Education: Patient Medication Summary Completed 11/22/2017 Appointment: Allie Mcneill WPtel: [facility] (15 min) Moderate 11/15/2017 Visit Plan: [...] months 08/16/2017 Appointment: [facility] [phone] [facility] (15 min) Moderate 08/16/2017 Patient Education: [...] symptoms. 05/17/2017 Appointment: [facility] [phone] [facility] [place] (15 min) Moderate 05/17/2017 Patient Education: [...] at home. 04/25/2017 Appointment: Allie Mcneill WPtel: [phone] [facility] (15 min) Moderate 04/25/2017 Patient Education: Patient Medication Summary Completed 04/25/2017 Appointment: Allie Mcneill WPtel: [phone] [facility] (15 min) Moderate 04/19/2017 Visit Plan: Dementia [...] Trazodone taper. 03/22/2017 Appointment: Allie Mcneill WPtel: [phone] [facility] (15 min) Moderate 03/22/2017 Patient Education: Patient [...] medications. 12/21/2016 Appointment: [facility] [phone] [facility] (15 min) Moderate 12/21/2016 Patient Education: [...] medications. 09/21/2016 Appointment: [facility] Mcneill [facility]Ptel[facility] [phone] [facility] (15 min) Moderate 09/21/2016 Patient Education: [...] current medications. 06/22/2016 Appointment: [facility]ill [facility]Ptel[facility] [phone] [facility] (15 min) Moderate 06/22/2016 Patient Education: [...] underlying psychosis. 03/23/2016 Appointment: [facility] Mc[facility]ill [phone] [place] (15 min) Moderate 03/23/2016 Patient Education: [...] problem. 12/16/2015 Appointment: [facility] Mc[facility]ill [phone] [place] (15 min) Moderate 12/16/2015 Patient Education: [...] to medications 09/16/2015 Appointment: [facility] Mc[facility]ill [phone] (15 min) Moderate 09/16/2015 Patient Education: [...] underlying psychosis. 07/01/2015 Appointment: [phone] Follow up 07/01/2015 Patient Education: Patient [...] 1 month then stop the Marinol as Barlow has had resolution of her weight loss. [...] 1 month then stop the Marinol as Barlow has had resolution of her weight loss. Seasonal allergies with nasal drainage -start casi 11/19/2014 Appointment: Allie Mcneill WPtel: [facility] Follow up 11/19/2014 Patient Education: Patient Medication Summary Completed 11/19/2014 Appointment: [phone] [facility] [place] Follow up 11/12/2014 Appointment: Allie Mcneill WPtel: [facility] [place] Follow up 09/10/2014 Visit Plan: [...] for effectiveness. 08/13/2014 Appointment: Allie Mcneill WPtel: [facility] Follow up 08/13/2014 Patient Education: Patient Medication [...] this time. 06/11/2014 Appointment: Allie Mcneill WPtel: [facility] [place] Follow up 06/11/2014 Patient Education: Patient [...] 10 days. 03/12/2014 Appointment: Allie Mcneill WPtel: [facility] [place] Follow up 03/12/2014 Patient Education: Patient [...] considered contagious. 02/26/2014 Appointment: Allie Mcneill WPtel: [facility]6 [facility] Follow up 02/26/2014 Patient Education: Patient Medication Summary Completed 02/26/2014 Appointment: Allie Mcneill WPtel: [phone] [facility] Follow up 02/04/2014 Appointment: Allie Mcneill WPtel: [facility] [place] [id number] [place] Follow up 01/19/2014 Visit Plan: Dementia [...] HELP AUGMENT PATIENT' S COMFORT AT THE [facility]. 11/27/2013 Appointment: Allie Mcneill WPtel: [facility] Follow up 11/27/2013 Patient Education: Patient Medication [...] if symptoms do not improve. 10/16/2013 Appointment: Osito Allie [facility]Ptel[phone] [place] Follow up 10/16/2013 Patient Education: Patient Medication Summary Completed 10/16/2013 [id number] [place] Lab Draw 07/31/2013 Patient Education: Patient Medication Summary Completed 07/31/2013 Appointment: All[facility] Mcneill [facility]Ptel: [phone] [facility] [place] Lab Draw 07/30/2013 Visit Plan: Lewy body dementia - symptoms improved on higher dose of risperdol - continue to monitor symptoms - family to call if hallucinations worsen again. 07/10/2013 Appointment: Allie Mcneill WPtel: [phone] [facility] Follow up 07/10/2013 Patient Education: Patient Medication [...] for effecitveness. 06/12/2013 Appointment: All[facility] Mcneill [facility]Ptel: [phone] [facility] Follow up 06/12/2013 Patient Education: Patient [...] to medications. 02/13/2013 Appointment: Allie Mcneill WPtel: [address] [place], [place] [id number] Follow up 02/13/2013 Patient Education: Patient Medication [...] check UA. 01/06/2013 Appointment: Allie Mcneill WPtel: [address] [place], [place] [id number] Follow up 01/06/2013 Patient Education: Patient Medication [...] check UA. 09/19/2012 Appointment: Allie Mcneill WPtel: [facility] Established Patient Preventative visit 09/19/2012 Patient Education: Patient Medication Summary Completed 09/19/2012 Visit Plan: Candidiasis of breasts-discussed natural and expected course of this diagnosis and to alert me if sympotms do not follow expected course, or if any worse. Keep areas clean and dry. RX sent to patient' s pharmacy and instructed on use. Seborrheic qegbgjfgx-ujyktci-fhhcfxith eucerin cream as needed to back Dry rudt-vyit-gwzpcfvnt moisturizer such as eucerin to face-call if worsens 08/08/2012 Appointment: Shari Parada WPtel: [id number] [place] rash 08/08/2012 Patient Education: Patient Medication Summary Completed 08/08/2012 Appointment: Allie Mcneill WPtel: [phone] [facility] [place] Injection 07/25/2012 Patient Education: Patient [...] her rest. 05/23/2012 Appointment: All[facility] Mcneill [facility]Ptel: [phone] [facility] Follow up 05/23/2012 Patient Education: Patient Medication Summary Completed 05/23/2012 Appointment: Sh[facility] Parada [facility]el[phone] [place] Lab Draw 04/05/2012 Patient Education: [...] regimen. 04/04/2012 Appointment: All[facility] Mcneill [facility]Ptel: [phone] [facility] [place] Follow up 04/04/2012 Patient Education: Patient Medication Summary Completed 04/04/2012 Visit Plan: Lewy Body Dementia - pt has been having hallucinations, auditory, visual, gustatory, she was recently in the hospital, then was transfered to a geriatric psychiatric facility in [place] for inpatient psych treatment. She was discharged [...] are opened. 03/21/2012 Appointment: Allie Mcneill WPtel: [address] [place], [place] [address] New Patient 03/21/2012 Patient Education: Patient Medication Summary Completed 03/21/2012 Instructions Comment . Lewy Body Dementia - Pt with [...] stable - continue with current management. . Dementia with Behaviors - I have [...] dosing regimen. . Lewy Body Dementia - pt has been having hallucinations, auditory, visual, gustatory, she was recently in the hospital, then was transfered to a geriatric psychiatric facility in [place] for inpatient psych treatment. She was discharged [...] patient's pharmacy and instructed on use. Seborrheic sqlpbsfkm-mvjtzxf-holakrtel eucerin cream as needed to back Dry xlhw-mjyo-rytghkfjo moisturizer such as eucerin to face-call if worsens . 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 The patient is on medication which appears to be controlling the worst of the symptoms. I have not recommended a change to the regimen at this time, but will continue to closely monitor the medications for effecitveness. . Hyperlipidemia - pt has been counseled [...] exposure. No change in current medications. . Hypertension - well controlled - [...] of cad - stop plavix. . Lewy body dementia - symptoms improved [...] No change in current medications. . Lewy Body's Dementia - Pt with [...] on the patient's chronic medical problem. . Hyperlipidemia - pt has been counseled [...] Ammens powder. Dysuria - check UA. . Hypertension - well controlled - continue [...] - continue with current management. . Lewy Body's Dementia - Pt with [...] TO HELP AUGMENT PATIENT'S COMFORT AT THE [facility]. . Hyperlipidemia - pt has been counseled [...] for her underlying psychosis. . Dementia with Lewy body - pt [...] with depakote, monitor depakote level, symptoms. . Lewy body Dementia - Pt with [...] her rest. . Lewy Body Dementia - pt with [...]
--- OUTSIDE RECORDS SUMMARY | 2018-10-02 18:36 | XMS REPORT | CCD ---
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 Name Role Phone PP Unavailable CCM Unavailable Summary Purpose Interface Exchange Insurance Providers Payer name Policy type / Coverage type Covered republican ID Effective Begin Date Effective End Date HUMANA CLAIMS Commercial Insurance [id number] Unknown Family history Daughter Diagnosis Age At [...] Codes Description Effective Dates Living arrangements Unknown Detention [facility] 12/21/2016 Marital status Unknown 03/21/2012 Number of children Unknown 5 03/21/[address]: 579171915 Nonsmoker 03/21/[address]: 392408121 Never drinks alcohol 03/21/2012 Allergies, Adverse Reactions, [...] Start Date Stop Date Status Fill Instructions Flonase 50 mcg/actuation nasal spray,suspension RxNorm: 6776383 INSTILL ONE SPRAY IN EACH NOSTRIL TWICE DAILY (MORNING AND EVENING) 05/28/2018 08/25/2018 Active Generic For:FLONASE SPR 0.05% 05/28/2018 2:26:52 PM Exelon Patch 9.5 mg/24 hr transdermal RxNorm: 167483 APPLY ONE (1) PATCH ONCE DAILY. 03/12/2018 07/09/2018 Active 03/12/2018 2:27:46 PM Depakote ER 250 mg tablet,extended release RxNorm: 0517172 1 Tablet(s) PO daily 02/28/2018 09/25/2018 Active Celexa 20 mg tablet RxNorm: 868016 1/2 Tablet(s) PO daily 08/26/2018 Active Generic For:CELEXA 20MG 12/17/2017 3:01:05 PM Flonase 50 mcg/actuation nasal spray,suspension RxNorm: 6972429 INSTILL ONE SPRAY IN EACH NOSTRIL TWICE DAILY (MORNING AND EVENING) 01/09/2018 04/08/2018 Inactive Generic For:FLONASE SPR 0.05% 01/07/2018 2:08:18 PM Keflex 500 mg capsule RxNorm: 951631 1 Capsule(s) PO TID 201701/06/2018 Inactive probiotic BID while on antibiotic Celexa 20 mg tablet RxNorm: 838036 TAKE 1 TABLET BY MOUTH EVERY DAY 12/17/2017 02/27/2018 Inactive Generic For:CELEXA 20MG 12/17/2017 3:01:05 PM Namenda 10 mg tablet RxNorm: 524535 TAKE 1 TABLET BY MOUTH TWICE DAILY 12/07/2017 06/04/2018 Active Generic For:NAMENDA 10MG TAB 12/07/2017 1:43:23 PM clopidogrel 75 mg tablet RxNorm: 594795 TAKE 1 TABLET BY MOUTH EVERY DAY 11/28/2017 11/22/2018 Active Generic For:*PLAVIX 75MG 11/28/2017 9:43:44 AM Ativan 0.5 mg tablet RxNorm: 465142 1 Tablet(s) PO Q6 as needed and 1/2 Tablet PO Q2 as needed 11/22/2017 No Stop Date Active Exelon Patch 9.5 mg/24 hr transdermal RxNorm: 590203 APPLY ONE (1) PATCH ONCE DAILY. 11/12/2017 03/11/2018 Inactive losartan 50 mg tablet RxNorm: 164172 TAKE 1 TABLET BY MOUTH EVERY DAY 11/05/2017 06/02/2018 Active Generic For:*COZAAR 50MG 11/02/2017 2:22:04 PM Exelon Patch 9.5 mg/24 hr transdermal RxNorm: 170746 APPLY ONE (1) PATCH ONCE DAILY. 10/19/2017 11/11/2017 Inactive Depakote 500 mg tablet,delayed release RxNorm: 1594003 1 Tablet(s) PO daily 10/15/2017 02/27/2018 Inactive Protonix 20 mg tablet,delayed release RxNorm: 611538 TAKE 1 TABLET BY MOUTH DAILY 08/06/2017 03/03/2018 Inactive Generic For:*PROTONIX 20MG 08/06/2017 2:35:53 PM Ativan 0.5 mg tablet RxNorm: 270839 1/2 Tablet(s) PO Q6 PRN as needed 1/2 po q 2 pm 08/02/2017 09/30/2017 Inactive Depakote 500 mg tablet,delayed release RxNorm: 5461006 1 Tablet(s) PO daily 06/22/2017 10/14/2017 Inactive Exelon Patch 9.5 mg/24 hr transdermal RxNorm: 652683 APPLY ONE (1) PATCH ONCE DAILY. 05/14/2017 10/10/2017 Inactive Protonix 20 mg tablet,delayed release RxNorm: 081726 1 Tablet(s) PO daily 05/08/2017 08/05/2017 Inactive Risperdal 0.25 mg tablet RxNorm: 582679 Tablet(s) UD .25 in am and .5 in hs and .25 prn for psychosis/hallucinations 04/26/2017 05/16/2017 Inactive Nuedexta 20 mg-10 mg capsule RxNorm: 4988479 1 Capsule(s) PO daily x 7 days then go to one cap BID 03/22/2017 04/24/2017 Inactive Ativan 0.5 mg tablet RxNorm: 520249 1/2 Tablet(s) PO Q6 PRN as needed 1/2 po q 2 pm 03/21/2017 08/01/2017 Inactive Keflex 500 mg capsule RxNorm: 917743 1 Capsule(s) PO TID 201603/05/2017 Inactive Keflex 500 mg capsule RxNorm: 719620 1 Capsule(s) PO TID 201603/15/2017 Inactive Ativan 0.5 mg tablet RxNorm: 524260 1/2 Tablet(s) PO Q6 PRN as needed 1/2 po q 2 pm 02/28/2017 03/20/2017 Inactive Protonix 20 mg tablet,delayed release RxNorm: 747550 1 Tablet(s) PO daily 02/07/2017 05/07/2017 Inactive Protonix 20 mg tablet,delayed release RxNorm: 903692 1 Tablet(s) PO daily 02/07/2017 02/06/2017 Inactive amoxicillin 500 mg capsule RxNorm: 810008 1 Capsule(s) PO TID 01/11/2017 01/10/2017 Inactive Patient at [facility] amoxicillin 500 mg capsule RxNorm: 711888 1 Capsule(s) PO TID 01/11/2017 01/17/2017 [facility] Exelon [facility] 9.5 mg/24 hr transdermal RxNorm: 740779 APPLY ONE (1) PATCH ONCE DAILY. 12/14/2016 05/12/2017 Inactive Flonase 50 mcg/actuation nasal spray,suspension RxNorm: 4550896 1 [place] each nostril NASAL BID 10/30/2016 11/28/2016 Inactive 2 spray each nostril Namenda 10 mg tablet RxNorm: 958695 1 Tablet(s) PO BID 201609/04/2017 Inactive Risperdal 0.25 mg tablet RxNorm: 366418 1 Tablet(s) PO QHS 01/22/2017 Inactive trazodone 50 mg tablet RxNorm: 227962 1.5 Tablet(s) PO QHS 03/29/2017 Inactive Exelon Patch 9.5 mg/24 hr transdermal RxNorm: 664987 APPLY ONE (1) PATCH ONCE DAILY. 07/18/2016 12/13/2016 Inactive trazodone 50 mg tablet RxNorm: 249832 1.5 Tablet(s) PO QHS 09/24/2016 Inactive Exelon Patch 9.5 mg/24 hr transdermal RxNorm: 196338 APPLY ONE (1) PATCH ONCE DAILY. 05/15/2016 05/14/2016 Inactive Exelon Patch 9.5 mg/24 hr transdermal RxNorm: 741010 APPLY ONE (1) PATCH ONCE DAILY. 05/15/2016 10/18/2017 Inactive Risperdal 0.25 mg tablet RxNorm: 751699 1 Tablet(s) PO QHS 11/201509/24/2016 Inactive Exelon Patch 9.5 mg/24 hr transdermal RxNorm: 480643 APPLY ONE (1) PATCH ONCE DAILY. 2016 No Stop Date Active Exelon Patch 9.5 mg/24 hr transdermal RxNorm: 493574 APPLY ONE (1) PATCH ONCE DAILY. 2016 02/21/2016 Inactive trazodone 50 mg tablet RxNorm: 143819 1.5 Tablet(s) PO QHS 01/201605/28/2016 Inactive simvastatin 20 mg tablet RxNorm: 559133 1 Tablet(s) PO daily 11/21/2017 Inactive clopidogrel 75 mg tablet RxNorm: 813153 1 Tablet(s) PO daily 01/31/2017 Inactive Celexa 20 mg tablet RxNorm: 151076 1 Tablet(s) PO daily 201501/31/2017 Inactive Excello Instant Breakfast Juice Drink oral liquid RxNorm: PO QHS after meals 02/02/2016 12/20/2016 Inactive Flonase 50 mcg/actuation nasal spray,suspension RxNorm: 9039979 1 [place] each nostril NASAL BID 12/02/2015 03/30/2016 Inactive 2 spray each nostril Namenda 10 mg tablet RxNorm: 999492 1 Tablet(s) PO BID 201510/06/2016 Inactive Risperdal 0.25 mg tablet RxNorm: 093386 1 Tablet(s) PO QHS 02/29/2016 Inactive Exelon Patch 9.5 mg/24 hr transdermal RxNorm: 050847 1 Patch TD daily 1 Patch TD daily 07/23/2015 01/18/2016 Inactive Exelon Patch 9.5 mg/24 hr transdermal RxNorm: 238492 1 Patch TD daily 07/20/2015 07/22/2015 Inactive Celexa 20 mg tablet RxNorm: 920742 1 Tablet(s) PO daily 201402/06/2016 Inactive Flonase 50 mcg/actuation nasal spray,suspension RxNorm: 113516 1 [place] each nostril NASAL BID 06/04/2015 10/01/2015 Inactive 2 spray each nostril Risperdal 0.25 mg tablet RxNorm: 612660 1 Tablet(s) PO QHS 08/01/2015 Inactive Exelon Patch 9.5 mg/24 hr transdermal RxNorm: 744749 1 Patch TD daily 04/28/2015 07/19/2015 Inactive Vitamin D3 2,000 unit capsule RxNorm: 872185 1 Capsule(s) PO daily 02/10/2015 03/15/2016 Inactive Calcium 600 + D(3) 600 mg (1,500 mg)-400 unit tablet RxNorm: 315063 1 Tablet(s) PO daily 02/09/2015 No Stop Date Active Celexa 20 mg tablet RxNorm: 396365 1 Tablet(s) PO daily 201412/09/2014 Inactive Celexa 20 mg tablet RxNorm: 409583 1 Tablet(s) PO daily 201407/07/2015 Inactive Flonase 50 mcg/actuation nasal spray,suspension RxNorm: 713150 1 [place] each nostril NASAL BID 11/27/2014 03/26/2015 Inactive 2 spray each nostril Amy Allergy 180 mg tablet RxNorm: 751068 1 Tablet(s) PO daily 11/19/2014 12/18/2014 Inactive Marinol 2.5 mg capsule RxNorm: 594174 1 Capsule(s) PO TID 11/1603/15/2015 Inactive [SAVINGS FOR UNINSURED PATIENTS -- BIN:[id number], PCN: [id number], Group: [id number], ID# [id number], Process claim through [employer] for questions: . THIS IS NOT INSURANCE.] Namenda 10 mg tablet RxNorm: 296204 1 Tablet(s) PO BID 201402/08/2015 Inactive Marinol 2.5 mg capsule RxNorm: 041776 1 Capsule(s) PO TID 10/1211/10/2014 Inactive Namenda 10 mg tablet RxNorm: 352848 1 Tablet(s) PO BID 201410/11/2014 Inactive Flonase 50 mcg/actuation nasal spray,suspension RxNorm: 960264 2 [place] NASAL BID 08/17/2014 11/26/2014 Inactive 2 spray each nostril Exelon Patch 9.5 mg/24 hr transdermal RxNorm: 817349 1 Patch TD daily 07/10/2014 10/07/2014 Inactive Risperdal 0.25 mg tablet RxNorm: 182256 1 Tablet(s) PO QHS 05/201405/03/2015 Inactive Namenda XR 14 mg capsule sprinkle,ER 24hr RxNorm: 850817 1 Capsule(s) PO daily 04/13/2014 10/11/2014 Inactive acyclovir 800 mg tablet RxNorm: 719035 1 Tablet(s) PO TID 03/1203/18/2014 Inactive nystatin 100,000 unit/gram topical powder RxNorm: 745291 1 Gram(s) TOP QID apply to tissue under breasts and if needed other folded skin ears with evidence of yeast infection 03/12/2014 03/21/2014 Inactive simvastatin 20 mg tablet RxNorm: 362557 1 Tablet(s) PO daily 02/15/2014 Inactive trazodone 50 mg tablet RxNorm: 675465 1 1/2 Tablet(s) PO daily 02/16/2014 02/15/2014 Inactive trazodone 50 mg tablet RxNorm: 673585 1 1/2 Tablet(s) PO daily 02/16/2014 03/17/2014 Inactive clopidogrel 75 mg tablet RxNorm: 104313 1 Tablet(s) PO daily 02/10/2015 Inactive Exelon 4.6 mg/24 hour transdermal 24 hour patch RxNorm: 285223 1 TD daily 02/16/2014 03/17/2014 Inactive simvastatin 20 mg tablet RxNorm: 700777 1 Tablet(s) PO daily 06/15/2014 Inactive Vitamin B-12 2,500 mcg sublingual tablet RxNorm: 501653 1 Tablet(s) SL daily 01/22/2014 No Stop Date Active Ativan 0.5 mg tablet RxNorm: 927717 1/2 Tablet(s) PO Q6 PRN 1/2 po q 2 pm and 1 po q 6 hours prn anxiety 10/16/20132013 Inactive Cipro 500 mg tablet RxNorm: 489502 1 Tablet(s) PO BID correction 08/04/2013 08/08/2013 Inactive Cipro 500 mg tablet RxNorm: 133601 2 Tablet(s) PO BID 201208/03/2013 Inactive Cipro 500 mg tablet RxNorm: 871271 2 Tablet(s) PO BID 201207/31/2013 Inactive Influenza Virus Vaccine 0.5 mL RxNorm: IM 07/07/2013 07/07/2013 Inactive clopidogrel 75 mg tablet RxNorm: 261300 1 Tablet(s) PO daily 02/15/2014 Inactive risperidone 0.5 mg tablet RxNorm: 890032 1 Tablet(s) PO TID 01/21/2014 Inactive atorvastatin 20 mg tablet RxNorm: 077581 1 Tablet(s) PO QPM 01/21/2014 Inactive TAKE ONE TABLET BY MOUTH EVERY DAY risperidone 0.5 mg tablet RxNorm: 846898 1 Tablet(s) PO TID 02/201306/24/2013 Inactive Risperdal 0.25 mg tablet RxNorm: 555812 Tablet(s) PO TAKE 1 TABLET AT NOON AND TAKE 1 TABLET AT NIGHT IF NEEDED FOR HALLUCINATIONS 201206/11/2013 Inactive clopidogrel 75 mg tablet RxNorm: 007227 1 Tablet(s) PO daily 06/24/2013 Inactive Risperdal 0.25 mg tablet RxNorm: 091215 1 Tablet(s) PO noon one at noon and one in night if needed for hallucinations. 09/06/2012 01/01/2013 Inactive atorvastatin 20 mg tablet RxNorm: 677457 1 Tablet(s) PO QPM 06/24/2013 Inactive TAKE ONE TABLET BY MOUTH EVERY DAY risperidone 0.5 mg tablet RxNorm: 996065 1 Tablet(s) PO BID 06/11/2013 Inactive atorvastatin 20 mg tablet RxNorm: 327544 Tablet(s) PO 201109/05/2012 Inactive TAKE ONE TABLET BY MOUTH EVERY DAY nystatin 100,000 unit/g Topical Powder RxNorm: 327219 1 Gram(s) TOP BID 08/08/2012 08/27/2012 Inactive atorvastatin 20 mg tablet RxNorm: 127064 Tablet(s) PO 201108/11/2012 Inactive TAKE ONE TABLET BY MOUTH EVERY DAY risperidone 0.5 mg tablet RxNorm: 068582 1 Tablet(s) PO BID 03/201207/12/2012 Inactive Risperdal 0.25 mg tablet RxNorm: 757340 1 Tablet(s) PO noon one at noon and one in night if needed for hallucinations. 06/13/2012 09/05/2012 Inactive clopidogrel 75 mg tablet RxNorm: 280615 1 Tablet(s) PO daily 09/05/2012 Inactive atorvastatin 20 mg tablet RxNorm: 577702 1 Tablet(s) PO daily 05/10/2012 06/08/2012 Inactive Cipro 500 mg Tab RxNorm: 751213 1 Tablet(s) PO BID 201104/11/2012 Inactive Risperdal 0.25 mg tablet RxNorm: 117481 1 Tablet(s) PO noon one at noon and one in night if needed for hallucinations. 03/22/2012 06/12/2012 Inactive Risperdal 0.25 mg Tab RxNorm: 159054 1 Tablet(s) PO noon one at noon and one in night if needed for hallucinations. 03/21/2012 03/21/2012 Inactive Vitamin D3 2,000 unit tablet RxNorm: 259128 1 Tablet(s) PO daily No Start Date Active Protonix 20 mg tablet,delayed release RxNorm: 663527 1 Tablet(s) PO daily No Start Date Active Vitamin B-12 500 mcg tablet RxNorm: 830199 1 Tablet(s) PO daily No Start Date Active melatonin 3 mg tablet RxNorm: 915044 2 Tablet(s) PO QHS No Start Date Active Tylenol 500 mg RxNorm : 1 -2 Tablet(s) PO Q6 as needed pain or fever No Start Date Active Vitamin D3 2,000 unit capsule RxNorm: 399293 1 Capsule(s) PO daily No Start Date 02/09/2015 Inactive trazodone 50 mg tablet RxNorm: 912508 1.5 Tablet(s) PO QHS No Start Date 02/08/2016 Inactive Trazadone 25 mg RxNorm : 3 PO QHS No Start Date 02/15/2014 Inactive Excello Instant Breakfast Juice Drink oral liquid RxNorm: PO TID after meals No Start Date 02/01/2016 Inactive Vitamin B-12 2,500 mcg sublingual tablet RxNorm: 412387 1 Tablet(s) SL daily No Start Date 01/21/2014 Inactive Tums Calcium for Life Bone 300 mg (750 mg) chewable tablet RxNorm: 420724 2 Tablet (s) PO daily No Start Date 02/12/2013 Inactive calcium 300 mg chewable tablet RxNorm: 1 Tablet(s) PO daily No Start Date 12/03/2015 Inactive with vitamin d Marinol 2.5 mg capsule RxNorm: 195175 1 Capsule(s) PO ac tid No Start Date 03/11/2014 Inactive Namenda XR 14 mg capsule sprinkle,ER 24hr RxNorm: 461259 1 Capsule(s) PO daily No Start Date 04/12/2014 Inactive clopidogrel 75 mg tablet RxNorm: 261483 1 Tablet(s) PO daily No Start Date 05/09/2012 Inactive Namenda 5 mg Tab RxNorm: 835502 1 Tablet(s) PO BID No Start Date 04/12/2014 Inactive Depakote 500 mg tablet,delayed release RxNorm: 7132073 1 Tablet(s) PO daily No Start Date 06/21/2017 Inactive Zocor 20 mg tablet RxNorm: 639544 1 Tablet(s) PO daily No Start Date 08/12/2014 Inactive losartan 50 mg tablet RxNorm: 909411 1 Tablet(s) PO daily No Start Date 11/04/2017 Inactive Depakote ER 250 mg tablet,extended release RxNorm: 2122874 1 Tablet(s) PO BID No Start Date 12/31/2013 Inactive Calcium 600 + D(3) oral RxNorm: 269517 oral No Start Date 02/08/2015 Inactive risperidone 0.5 mg tablet RxNorm: 640474 1 Tablet(s) PO BID No Start Date 06/12/2012 Inactive lorazepam 0.5 mg tablet RxNorm: 819647 1 Tablet(s) PO daily No Start Date 11/21/2017 Inactive atorvastatin 20 mg tablet RxNorm: 965413 1 Tablet(s) PO daily No Start Date 05/09/2012 Inactive Flonase 50 mcg/actuation nasal spray,suspension RxNorm: 807183 2 [place] NASAL BID No Start Date 08/16/2014 Inactive 2 spray each nostril Exelon 4.6 mg/24 hour transdermal 24 hour patch RxNorm: 301186 1 TD daily No Start Date 02/15/2014 [...] Essential (primary) hypertension ICD-10: I10 ICD-9: 401.1 02/28/2018 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 ICD-9: 298.8 02/28/2018 Mixed hyperlipidemia ICD-10: E78.2 ICD-9: 272.2 02/28/2018 Major depressive disorder, recurrent, 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 ICD-9: 296.31 08/16/2017 Dementia with Lewy bodies ICD-10: G31.83 ICD-9: 331.82 04/25/2017 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 ICD-9: 310.81 03/22/2017 Encounter for immunization ICD-10: Z23 ICD-9: V04.81 09/21/2016 Mixed hyperlipidemia ICD-10: E78.2 ICD-9: 272.4 03/23/2016 Other hallucinations ICD-10: R44.2 ICD-9: 780.1 12/16/2015 Encounter for immunization ICD-10: Z23 ICD-9: V03.82 09/16/2015 DEMEN NOS 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 ICD-9: 294.20 HYPERLIPIDEMIA ICD-9: 272.4 07/01/2015 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 VACCIN FOR INFLUENZA ICD-9: V04.81 2014 Psychosis [...] For Visit Effective Dates Notes memory loss 02/28/2018 memory loss 11/22/2017 memory loss 08/16/2017 memory loss 05/17/2017 memory loss 04/25/2017 memory loss 03/22/2017 memory loss 12/21/2016 memory loss 09/21/2016 memory loss 06/22/2016 memory loss 03/23/2016 memory loss 12/16/2015 memory loss 09/16/2015 memory loss 07/01/2015 anxiety 02/25/2015 cough 11/19/2014 depression 08/13/2014 depression 06/11/2014 skin lesion 04/16/2014 reported by [facility] skin lesion 03/12/2014 weight loss 02/26/2014 medication follow up 11/27/2013 anxiety 10/16/2013 memory loss 07/10/2013 --Improved vaccination against influenza 07/07/2013 memory loss 06/12/2013 hallucination 02/13/2013 hallucination 01/06/2013 rash 09/19/2012 skin lesion 08/08/2012 vaccination against influenza 07/25/2012 memory loss 05/23/2012 hallucination 04/04/2012 dementia memory loss 03/21/2012 Results Observation Observation Code Item Item Code Result Date Urinalysis Ord28 U-Color Yellow 02/06/2018 Urinalysis Ord28 [...] 28.3 % 02/04/2018 Cbc With Differential Ord2 MCH 29.2 pg 02/04/2018 Cbc With Differential Ord2 [place]% 10.1 % 02/04/2018 Cbc With Differential Ord2 MCHC 31.4 pg 02/04/2018 Cbc With Differential Ord2 Eos% 2.9 % 02/04/2018 Cbc With Differential Ord2 Baso% 0.3 % 02/04/2018 Cbc With Differential Ord2 PLT 295 K/ul 02/04/2018 Cbc With Differential Ord2 Neut ABS# 3.81 K/ul 02/04/2018 Cbc With Differential Ord2 RDW 14.5 % 02/04/2018 Cbc With Differential Ord2 Lymph ABS# 1.85 K/ul 02/04/2018 Cbc With Differential Ord2 [place] ABS# 0.7 K/ul 02/04/2018 Cbc With Differential Ord2 Eos ABS# 0.2 K/ul 02/04/2018 Cbc With Differential Ord2 Baso ABS# 0.0 K/ul 02/04/2018 Comp Metabolic Ojp906 NA 139 mEq/L 02/04/2018 Comp Metabolic Jvb038 K 4.3 mEq/L 02/04/2018 Comp Metabolic Ncq865 CL 103 mEq/L 02/04/2018 Comp Metabolic Azv650 CO2 29.0 mEq/L 02/04/2018 Comp Metabolic Yfo590 ANION GAP 11 02/04/2018 Comp Metabolic Ymt215 GLUCOSE 84 mg/dL 02/04/2018 Comp Metabolic Ctu397 Creat 0.5 mg/dL 02/04/2018 Comp Metabolic Bmt870 eGFR 116 ml/min/1.73m2 02/04/2018 Comp Metabolic Qro276 BUN 7 mg/dL 02/04/2018 Comp Metabolic Xbs902 B/C Ratio 13.2 Ratio 02/04/2018 Comp Metabolic Ozx232 CALCIUM 8.4 mg/dL 02/04/2018 Comp Metabolic Sko366 ALK PHOS 110 U/L 02/04/2018 Comp Metabolic Thb145 AST(SGOT) 10 U/L 02/04/2018 Comp Metabolic Pth583 ALT(SGPT) 7 U/L 02/04/2018 Comp Metabolic Qxk782 BILI T 0.3 mg/dL 02/04/2018 Comp Metabolic Kao019 ALBUMIN 3.4 g/dL 02/04/2018 Comp Metabolic Wtf831 TPRO 5.9 g/dL 02/04/2018 Comp Metabolic Qps278 GLOB 2.5 g/dL 02/04/2018 Comp Metabolic Pkn397 A/G Ratio 1.3 Ratio 02/04/2018 Comp Metabolic Xss331 Osmo 275 mOsmo 02/04/2018 Tsh Ord6 TSH (3rd IS) 2.26 uIU/mL 02/04/2018 Valproic Acid Cxk953 VALPROIC 45.0 ug/ml 02/04/2018 Lipid Ord30 CHOL 161 mg/dL 02/04/2018 Lipid Ord30 HDL 47.0 mg/dl 02/04/2018 Lipid Ord30 TRIG 109 mg/dL 02/04/2018 Lipid Ord30 LDL 92 mg/dL 02/04/2018 Lipid Ord30 C/HDL 3.4 Ratio 02/04/2018 Valproic Acid Rnn567 VALPROIC 40.0 ug/ml 01/17/2018 Hepatic Odr461 ALBUMIN 3.7 g/dL 01/17/2018 Hepatic Jli190 TPRO 6.5 g/dL 01/17/2018 Hepatic Sou394 GLOB 2.8 g/dL 01/17/2018 Hepatic Vqp098 A/G Ratio 1.4 Ratio 01/17/2018 Hepatic Neu282 ALK PHOS 137 U/L 01/17/2018 Hepatic Vrq118 ALT(SGPT) 7 U/L 01/17/2018 Hepatic Qrx483 AST(SGOT) 11 U/L 01/17/2018 Hepatic Xgy722 BILI T 0.4 mg/dL 01/17/2018 Hepatic Vhy500 BILI D 0.1 mg/dL 01/17/2018 Hepatic Nqe115 BILI I 0.3 mg/dL 01/17/2018 Cbc With Differential Ord2 WBC 7.46 K/ul [...] 29.2 pg 01/03/2018 Cbc With Differential Ord2 [place]% 13.9 % 01/03/2018 Cbc With Differential Ord2 MCHC 31.5 pg 01/03/2018 Cbc With Differential Ord2 Eos% 4.4 % 01/03/2018 Cbc With Differential Ord2 Baso% 0.3 % 01/03/2018 Cbc With Differential Ord2 PLT 226 K/ul 01/03/2018 Cbc With Differential Ord2 RDW 14.7 % 01/03/2018 Cbc With Differential Ord2 Neut ABS# 4.13 K/ul 01/03/2018 Cbc With Differential Ord2 Lymph ABS# 1.94 K/ul 01/03/2018 Cbc With Differential Ord2 [place] ABS# 1.0 K/ul 01/03/2018 Cbc With Differential [...] Ord15 CALCIUM 8.2 mg/dL 01/03/2018 Valproic Acid Zjo259 VALPROIC 38.0 ug/ml 01/03/2018 Comp Metabolic Nuy495 NA 136 mEq/L 01/02/2018 Comp Metabolic Atf712 K 4.1 mEq/L 01/02/2018 Comp Metabolic Jtb620 CL 103 mEq/L 01/02/2018 Comp Metabolic Gba638 CO2 24.0 mEq/L 01/02/2018 Comp Metabolic Hic099 ANION GAP 13 01/02/2018 Comp Metabolic Dxf276 GLUCOSE 135 mg/dL 01/02/2018 Comp Metabolic Yxv361 Creat 0.6 mg/dL 01/02/2018 Comp Metabolic Wmi934 eGFR 99 ml/min/1.73m2 01/02/2018 Comp Metabolic Feu938 BUN 7 mg/dL 01/02/2018 Comp Metabolic Wku824 B/C Ratio 11.5 Ratio 01/02/2018 Comp Metabolic Wtg189 CALCIUM 8.8 mg/dL 01/02/2018 Comp Metabolic Ycj955 ALK PHOS 75 U/L 01/02/2018 Comp Metabolic Wnn312 AST(SGOT) 13 U/L 01/02/2018 Comp Metabolic Wcv730 ALT(SGPT) 7 U/L 01/02/2018 Comp Metabolic Ybf048 BILI T 0.2 mg/dL 01/02/2018 Comp Metabolic Ban930 ALBUMIN 3.9 g/dL 01/02/2018 Comp Metabolic Bri272 TPRO 6.5 g/dL 01/02/2018 Comp Metabolic Xbe558 GLOB 2.6 g/dL 01/02/2018 Comp Metabolic Wmk251 A/G Ratio 1.5 Ratio 01/02/2018 Comp Metabolic Inq957 Osmo 272 mOsmo 01/02/2018 Cbc With Differential Ord2 WBC 9.28 K/ul 01/02/2018 Cbc With Differential Ord2 RBC 4.14 M/ul 01/02/2018 Cbc With Differential Ord2 HGB 12.3 g/dl 01/02/2018 Cbc With Differential Ord2 HCT 38.0 % 01/02/2018 Cbc With Differential Ord2 Neut% 74.1 % 01/02/2018 Cbc With Differential Ord2 Lymph% 13.4 % 01/02/2018 Cbc With Differential Ord2 MCV 91.8 fl 01/02/2018 Cbc With Differential Ord2 [place]% 11.5 % 01/02/2018 Cbc With Differential Ord2 MCH 29.7 pg 01/02/2018 Cbc With Differential Ord2 MCHC 32.4 pg 01/02/2018 Cbc With Differential Ord2 Eos% 0.9 % 01/02/2018 Cbc With Differential Ord2 Baso% 0.1 % 01/02/2018 Cbc With Differential Ord2 PLT 275 K/ul 01/02/2018 Cbc With Differential Ord2 RDW 14.4 % 01/02/2018 Cbc With Differential Ord2 Neut ABS# 6.88 K/ul 01/02/2018 Cbc With Differential Ord2 Lymph ABS# 1.24 K/ul 01/02/2018 Cbc With Differential Ord2 [place] ABS# 1.1 K/ul 01/02/2018 Cbc With Differential Ord2 Eos ABS# 0.1 K/ul 01/02/2018 Cbc With Differential Ord2 Baso ABS# 0.0 K/ul 01/02/2018 Valproic Acid Pca837 VALPROIC 39.0 ug/ml 01/02/2018 Urine Culture Ucult Preliminary NO Growth [...] U-Com Culture to follow 12/28/2017 Valproic Acid Lfr210 VALPROIC 38.0 ug/ml 11/22/2017 Valproic Acid Wpo940 VALPROIC 44.0 ug/ml 10/22/2017 Hepatic Jtp463 ALBUMIN 3.3 g/dL 10/22/2017 Hepatic Gdo060 TPRO 5.7 g/dL 10/22/2017 Hepatic Otu991 GLOB 2.4 g/dL 10/22/2017 Hepatic Ecl444 A/G Ratio 1.4 Ratio 10/22/2017 Hepatic Sds134 ALK PHOS 72 U/L 10/22/2017 Hepatic Zmx627 ALT(SGPT) 5 U/L 10/22/2017 Hepatic Vjw254 AST(SGOT) 9 U/L 10/22/2017 Hepatic Omt370 BILI T 0.3 mg/dL 10/22/2017 Hepatic Wzu250 BILI D 0.0 mg/dL 10/22/2017 Hepatic Oxf152 BILI I 0.3 mg/dL 10/22/2017 Valproic Acid Cep692 VALPROIC 10.0 ug/ml 09/20/2017 Hepatic Eud127 ALBUMIN 3.8 g/dL 09/20/2017 Hepatic Iny683 TPRO 6.3 g/dL 09/20/2017 Hepatic Qeu805 GLOB 2.5 g/dL 09/20/2017 Hepatic Bsv363 A/G Ratio 1.5 Ratio 09/20/2017 Hepatic Qpz347 ALK PHOS 67 U/L 09/20/2017 Hepatic Nap552 ALT(SGPT) 5 U/L 09/20/2017 Hepatic Mnc890 AST(SGOT) 11 U/L 09/20/2017 Hepatic Azm937 BILI T 0.4 mg/dL 09/20/2017 Hepatic Gjn319 BILI D 0.1 mg/dL 09/20/2017 Hepatic Gez263 BILI I 0.3 mg/dL 09/20/2017 Valproic Acid Npq051 VALPROIC 44.0 ug/ml 08/23/2017 Hepatic Ueh402 ALBUMIN 3.5 g/dL 08/23/2017 Hepatic Dpo959 TPRO 6.1 g/dL 08/23/2017 Hepatic Lvb128 GLOB 2.6 g/dL 08/23/2017 Hepatic Bvt491 A/G Ratio 1.4 Ratio 08/23/2017 Hepatic Cej549 ALK PHOS 63 U/L 08/23/2017 Hepatic Cdg468 ALT(SGPT) 5 U/L 08/23/2017 Hepatic Uid673 AST(SGOT) 9 U/L 08/23/2017 Hepatic Kpu785 BILI T 0.3 mg/dL 08/23/2017 Hepatic Gsr832 BILI D 0.1 mg/dL 08/23/2017 Hepatic Iot806 BILI I 0.2 mg/dL 08/23/2017 Hepatic Dul373 ALBUMIN 3.5 g/dL 07/23/2017 Hepatic Dms304 TPRO 5.9 g/dL 07/23/2017 Hepatic Edp001 GLOB 2.4 g/dL 07/23/2017 Hepatic Zwb902 A/G Ratio 1.5 Ratio 07/23/2017 Hepatic Xxh850 ALK PHOS 61 U/L 07/23/2017 Hepatic Ttw619 ALT(SGPT) 6 U/L 07/23/2017 Hepatic Bgj488 AST(SGOT) 11 U/L 07/23/2017 Hepatic Viq636 BILI T 0.3 mg/dL 07/23/2017 Hepatic Fax053 BILI D 0.1 mg/dL 07/23/2017 Hepatic Eob206 BILI I 0.2 mg/dL 07/23/2017 Valproic Acid Nqi156 VALPROIC 37.0 ug/ml 07/23/2017 Hepatic Xwg327 ALBUMIN 3.6 g/dL 06/26/2017 Hepatic Ihp136 TPRO 6.0 g/dL 06/26/2017 Hepatic Adi710 GLOB 2.4 g/dL 06/26/2017 Hepatic Bxj856 A/G Ratio 1.5 Ratio 06/26/2017 Hepatic Rjp781 ALK PHOS 64 U/L 06/26/2017 Hepatic Whr132 ALT(SGPT) 8 U/L 06/26/2017 Hepatic Clj217 AST(SGOT) 11 U/L 06/26/2017 Hepatic Kim549 BILI T 0.3 mg/dL 06/26/2017 Hepatic Twa177 BILI D 0.1 mg/dL 06/26/2017 Hepatic Zod777 BILI I 0.2 mg/dL 06/26/2017 Valproic Acid Wen124 VALPROIC 45.0 ug/ml 06/26/2017 Comp Metabolic Flg835 NA 140 mEq/L 05/18/2017 Comp Metabolic Byg817 K 4.2 mEq/L 05/18/2017 Comp Metabolic Grm997 CL 103 mEq/L 05/18/2017 Comp Metabolic Gkb847 CO2 27.0 mEq/L 05/18/2017 Comp Metabolic Vdb880 ANION GAP 14 05/18/2017 Comp Metabolic Jdp840 GLUCOSE 85 mg/dL 05/18/2017 Comp Metabolic Esm773 Creat 0.6 mg/dL 05/18/2017 Comp Metabolic Fqr270 eGFR 109 ml/min/1.73m2 05/18/2017 Comp Metabolic Opp489 BUN 8 mg/dL 05/18/2017 Comp Metabolic Tqr254 B/C Ratio 14.3 Ratio 05/18/2017 Comp Metabolic Hds903 CALCIUM 8.6 mg/dL 05/18/2017 Comp Metabolic Xdy908 ALK PHOS 85 U/L 05/18/2017 Comp Metabolic Wal787 AST(SGOT) 10 U/L 05/18/2017 Comp Metabolic Cib298 ALT(SGPT) 6 U/L 05/18/2017 Comp Metabolic Dnj570 BILI T 0.4 mg/dL 05/18/2017 Comp Metabolic Nqe352 ALBUMIN 3.7 g/dL 05/18/2017 Comp Metabolic Fsi716 TPRO 6.3 g/dL 05/18/2017 Comp Metabolic Mjh315 GLOB 2.6 g/dL 05/18/2017 Comp Metabolic Rvq570 A/G Ratio 1.4 Ratio 05/18/2017 Comp Metabolic Typ334 Osmo 277 mOsmo 05/18/2017 Bili D Ord93 BILI D 0.1 mg/dL 05/18/2017 Bili D Ord93 BILI I 0.3 mg/dL 05/18/2017 Valproic Acid Sqr874 VALPROIC 27.0 ug/ml 05/18/2017 Urinalysis Ord28 U-Color [...] 04/11/2017 Urinalysis Ord28 U-Yeast NEGATIVE 04/11/2017 A1C 9875486 A1C HPLC 95715-5 5.9 % 07/08/2013 CHEM 14 20280411 AST 14 U/L 07/07/2013 CHEM 14 20280411 ALT 10 IU/L 07/07/2013 CHEM 14 20280411 BUN 11 MG/DL 07/07/2013 CHEM 14 0249543 ALBUMIN 4.1 GM/DL 07/07/2013 CHEM 14 7498512 CHLORIDE 107 MMOL/L 07/07/2013 CHEM 14 5677193 BILI TOT 0.4 MG/DL 07/07/2013 CHEM 14 9040516 ALK PHOS 54 U/L 07/07/2013 CHEM 14 1549857 SODIUM 141 MMOL/L 07/07/2013 CHEM 14 8635894 CREATININE 0.70 MG/DL 07/07/2013 CHEM 14 1690808 CALCIUM 9.0 MG/DL 07/07/2013 CHEM 14 0301117 POTASSIUM 4.2 MMOL/L 07/07/2013 CHEM 14 4433779 PROT TOT 6.5 GM/DL 07/07/2013 CHEM 14 6328877 GLUCOSE 102 MG/DL 07/07/2013 CHEM 14 5342048 BICARB 28 MMOL/L 07/07/2013 CHEM 14 4977683 ANION GAP 6 MEQ/L 07/07/2013 GFR CALC 4234701 GFR AA >60 ML/MIN 07/07/2013 GFR CALC 7508903 GFR NON-AA >60 ML/MIN 07/07/2013 CBC 9627394 WBC 8.9 10e9/L 07/07/2013 CBC 9538820 RBC 4.27 10e12/L 07/07/2013 CBC 0507697 HGB 12.7 g/dL 07/07/2013 CBC 2993219 HCT DET 39.0 % 07/07/2013 CBC 5540882 MCV 91.3 fL 07/07/2013 CBC 8723066 MCH 29.7 pg 07/07/2013 CBC 7339166 MCHC 32.6 g/dL 07/07/2013 CBC 6293657 PLT 273 10e9/L 07/07/2013 CBC 8412881 MPV 11.0 fL 07/07/2013 CBC 7039636 TORREY % 69.1 % 07/07/2013 CBC 5937034 LY % 19.6 % 07/07/2013 CBC 2008732 MON % 8.5 % 07/07/2013 CBC 4316521 EOS % 2.6 % 07/07/2013 CBC 3245309 BASO % 0.2 % 07/07/2013 CBC 0923276 RDW 13.0 % 07/07/2013 CBC 8090109 ABS TORREY 6.15 10e9/L 07/07/2013 CBC 4979242 ABS LYMPH 1.74 10e9/L 07/07/2013 CBC 4507239 ABS MONO 0.76 10e9/L 07/07/2013 CBC 9406437 ABS EOS 0.23 10e9/L 07/07/2013 CBC 2729854 ABS BASO 0.02 10e9/L 07/07/2013 CBC 2483850 RDW-SD 42.3 fL 07/07/2013 LIPID GRP HDL TEST 47 MG/DL 07/07/2013 LIPID GRP TRIG 121 MG/DL 07/07/2013 LIPID GRP TEST LDL 63 MG/DL 07/07/2013 LIPID GRP CHOL 134 MG/DL 07/07/2013 LIPID GRP RCHOL/HDL 2.85 RATIO 07/07/2013 CHEM 14 5942697 AST 14 U/L 01/06/2013 CHEM 14 7540279 ALT 12 IU/L 01/06/2013 CHEM 14 7955901 BUN 9 MG/DL 01/06/2013 CHEM 14 5080600 ALBUMIN 4.2 GM/DL 01/06/2013 CHEM 14 5030879 CHLORIDE 108 MMOL/L 01/06/2013 CHEM 14 9510361 BILI TOT 0.4 MG/DL 01/06/2013 CHEM 14 7549413 ALK PHOS 74 U/L 01/06/2013 CHEM 14 1602038 SODIUM 142 MMOL/L 01/06/2013 CHEM 14 5397347 CREATININE 0.62 MG/DL 01/06/2013 CHEM 14 7034746 CALCIUM 9.0 MG/DL 01/06/2013 CHEM 14 0716863 POTASSIUM 4.3 MMOL/L 01/06/2013 CHEM 14 8576476 PROT TOT 6.6 GM/DL 01/06/2013 CHEM 14 1288768 GLUCOSE 94 MG/DL 01/06/2013 CHEM 14 0920750 BICARB 25 MMOL/L 01/06/2013 CHEM 14 8291875 ANION GAP 9 MEQ/L 01/06/2013 CBC 3383858 WBC 7.2 10e9/L 01/06/2013 CBC 8492870 RBC 4.22 10e12/L 01/06/2013 CBC 4373046 HGB 12.6 g/dL 01/06/2013 CBC 2267807 HCT DET 38.3 % 01/06/2013 CBC 1036526 MCV 90.8 fL 01/06/2013 CBC 3394087 MCH 29.9 pg 01/06/2013 CBC 7538263 MCHC 32.9 g/dL 01/06/2013 CBC 0925781 PLT 287 10e9/L 01/06/2013 CBC 2346946 MPV 11.0 fL 01/06/2013 CBC 1963877 TORREY % 68.0 % 01/06/2013 CBC 8640735 LY % 21.6 % 01/06/2013 CBC 6664560 MON % 9.0 % 01/06/2013 CBC 7389130 EOS % 1.3 % 01/06/2013 CBC 2065546 BASO % 0.1 % 01/06/2013 CBC 1511852 RDW 13.3 % 01/06/2013 CBC 0196989 ABS TORREY 4.90 10e9/L 01/06/2013 CBC 4430290 ABS LYMPH 1.56 10e9/L 01/06/2013 CBC 6024836 ABS MONO 0.65 10e9/L 01/06/2013 CBC 6387307 ABS EOS 0.09 10e9/L 01/06/2013 CBC 0151040 ABS BASO 0.01 10e9/L 01/06/2013 CBC 7536969 RDW-SD 43.0 fL 01/06/2013 VIT B 12 7804337 VIT B 12 >2000 PG/ML 01/06/2013 TSH 6596283 TSH 1.814 uIU/ML 01/06/2013 GFR CALC 0428590 GFR AA >60 ML/MIN 01/06/2013 GFR CALC 1160773 GFR NON-AA >60 ML/MIN 01/06/2013 FREE T4 6119727 FREE T4 1.19 NG/DL 01/06/2013 URINALYSIS NONAUTO W/O SCOPE 06844 Specific [place] 1.020 DateTime(Free Text in Aprima) URINALYSIS NONAUTO W/O SCOPE 16806 PH 6.0 DateTime(Free Text in Aprima) URINALYSIS NONAUTO W/O SCOPE 88140 GLUCOSE negative DateTime(Free Text in Aprima) URINALYSIS NONAUTO W/O SCOPE 66768 Protein negative DateTime(Free Text in Aprima) URINALYSIS NONAUTO W/O SCOPE 55103 Blood negative DateTime( Free Text in Aprima) URINALYSIS NONAUTO W/O SCOPE 79154 Bilirubin negative DateTime(Free Text in Aprima) URINALYSIS NONAUTO W/O SCOPE 95738 Ketones trace DateTime(Free Text in Aprima) URINALYSIS NONAUTO W/O SCOPE 81576 Urobilinogen negative DateTime(Free Text in Aprima) URINALYSIS NONAUTO W/O SCOPE 13640 Nitrite negative DateTime(Free Text in Aprima) URINALYSIS NONAUTO W/O SCOPE 43539 Leukocytes 1+ DateTime(Free Text in Aprima) URINALYSIS NONAUTO W/O SCOPE 08245 Specific [place] 1.005 DateTime(Free Text in Aprima) URINALYSIS NONAUTO W/O SCOPE 74024 PH 5 DateTime(Free Text in Aprima) URINALYSIS NONAUTO W/O SCOPE 91016 GLUCOSE neg DateTime( Free Text in Aprima) URINALYSIS NONAUTO W/O SCOPE 45379 Protein neg DateTime( Free Text in Aprima) URINALYSIS NONAUTO W/O SCOPE 13424 Blood neg DateTime(Free Text in Aprima) URINALYSIS NONAUTO W/O SCOPE 50213 Bilirubin neg DateTime(Free Text in Aprima) URINALYSIS NONAUTO W/O SCOPE 18952 Ketones neg DateTime( Free Text in Aprima) URINALYSIS NONAUTO W/O SCOPE 52778 Urobilinogen neg DateTime(Free Text in Aprima) URINALYSIS NONAUTO W/O SCOPE 96816 Nitrite neg DateTime( Free Text in Aprima) URINALYSIS NONAUTO W/O SCOPE 40723 Leukocytes neg DateTime(Free Text in Aprima) URINALYSIS NONAUTO W/O SCOPE 45297 Specific [place] 1.010 DateTime(Free Text in Aprima) URINALYSIS NONAUTO W/O SCOPE 28622 PH 6 DateTime(Free Text in Aprima) URINALYSIS NONAUTO W/O SCOPE 81219 GLUCOSE DateTime( Free Text in Aprima) URINALYSIS NONAUTO W/O SCOPE 01547 Protein DateTime( Free Text in Aprima) URINALYSIS NONAUTO W/O SCOPE 91301 Blood DateTime(Free Text in Aprima) URINALYSIS NONAUTO W/O SCOPE 35246 Bilirubin DateTime( Free Text in Aprima) URINALYSIS NONAUTO W/O SCOPE 08257 Ketones DateTime( Free Text in Aprima) URINALYSIS NONAUTO W/O SCOPE 77120 Urobilinogen DateTime (Free Text in Aprima) URINALYSIS NONAUTO W/O SCOPE 43569 Nitrite DateTime( Free Text in Aprima) URINALYSIS NONAUTO W/O SCOPE 36177 Leukocytes trace DateTime(Free Text in Aprima) Review of Systems System Result Effective Dates Constitutional No anorexia 02/28/2018 Constitutional No night [...] FLU VACC PRSV FREE INC ANTIG CPT-4: 11177 06/22/2016 ADMIN PNEUMOCOCCAL VACCINE SNOMED CT: 23412840 CPT-4: G0009 09/16/2015 PNEUMOCOCCAL VACC 13 QUYEN IM Formatting Model/CDA Sections, Assigned to SNOMED CT: 10056233 CPT-4: 60912Ouhjbdm 09/16/2015 ADMIN INFLUENZA VIRUS VAC Formatting Model/CDA Sections, Assigned to/Arabella Sharma CPT-4: O5929Vdstfoz 07/01/2015 FLU VACC 4 QUYEN 3 YRS PLUS IM SNOMED CT: 48135025 CPT-4: 96877 07/01/2015 FLU VAC NO PRSV 4 QUYEN 3 YRS+ CPT-4: 84248 06/11/2014 ADMIN INFLUENZA VIRUS VAC Assigned to/Arabella Sharma CPT-4: I6381Kvvadvl 06/11/2014 URINALYSIS NONAUTO W/O SCOPE CPT-4: 57323 07/31/2013 ADMIN INFLUENZA VIRUS VAC CPT-4: G0008 07/07/2013 FLULAVAL VACC, 3 YRS & >, IM CPT-4: Q2036 07/07/2013 ROUTINE VENIPUNCTURE CPT-4: 66015 07/07/2013 22418 EST. PATIENT, LEVEL IV CPT-4: 80901 06/12/2013 67024 EST. PATIENT, LEVEL IV CPT-4: 74118 02/13/2013 ROUTINE VENIPUNCTURE CPT-4: 08558 01/06/2013 URINALYSIS NONAUTO W/O SCOPE CPT-4: 57094 01/06/2013 70904 EST. PATIENT, LEVEL IV CPT-4: 34641 09/19/2012 URINALYSIS NONAUTO W/O SCOPE CPT-4: 09445 09/19/2012 IMMUNIZATION ADMIN CPT -4: 14852 07/25/2012 Influenza Virus Vaccine, Split Virus, >3 Yrs, IM CPT-4: 21829 07/25/2012 URINALYSIS NONAUTO W/O SCOPE CPT-4: 21289 05/23/2012 URINALYSIS NONAUTO W/O SCOPE CPT-4: 99102 04/05/2012 Vital Signs Date Vital 02/28/2018 Blood Pressure 1: 140/76 Code : 8480-6 BMI: 28.9 Code : 45743-6 Heart Rate 1 : 69 bpm Height: 5'2" SpO2: 97% Weight: 158 lbs 11/22/2017 Blood Pressure 1: 146/84 Code : 8480-6 BMI: 29.4 Code : 87838-2 Heart Rate 1 : 72 bpm Height: 5'2" SpO2: 96% Weight: 161 lbs 08/16/2017 Blood Pressure 1: 130/68 Code : 8480-6 BMI: 28.9 Code : 60600-8 Heart Rate 1 : 63 bpm Height: 5'2" SpO2: 96% Weight: 158 lbs 05/17/2017 Blood Pressure 1: 138/80 Code : 8480-6 Heart Rate 1: 88 bpm Height: SpO2: 96% Weight: 04/25/2017 Blood Pressure 1: 140/74 Code : 8480-6 BMI: 29.8 Code : 85735-7 Heart Rate 1 : 106 bpm Height: 5'2" SpO2: 96% Weight: 163 lbs 03/22/2017 Blood Pressure 1: 128/82 Code : 8480-6 BMI: 30.4 Code : 34767-3 Heart Rate 1 : 76 bpm Height: 5'2" SpO2: 95% Weight: 166 lbs 12/21/2016 Blood Pressure 1: 144/80 Code : 8480-6 BMI: 30.9 Code : 70108-7 Heart Rate 1 : 72 bpm Height: 5'2" SpO2: 98% Weight: 169 lbs 09/21/2016 Blood Pressure 1: 140/76 Code : 8480-6 BMI: 30.5 Code : 85284-8 Heart Rate 1 : 78 bpm Height: 5'2" SpO2: 97% Weight: 167 lbs 06/22/2016 Blood Pressure 1: 132/74 Code : 8480-6 BMI: 30.9 Code : 97794-1 Heart Rate 1 : 71 bpm Height: 5'2" SpO2: 98% Weight: 169 lbs 03/23/2016 Blood Pressure 1: 122/68 Code : 8480-6 BMI: 29.8 Code : 07383-0 Heart Rate 1 : 68 bpm Height: 5'2" SpO2: 98% Weight: 163 lbs 12/16/2015 Blood Pressure 1: 142/70 Code : 8480-6 BMI: 30.5 Code : 74210-6 Heart Rate 1 : 68 bpm Height: 5'2" SpO2: 98% Weight: 167 lbs 09/16/2015 Blood Pressure 1: 124/58 Code : 8480-6 BMI: 30.0 Code : 36971-7 Heart Rate 1 : 59 bpm Height: 5'2" SpO2: 96% Weight: 164 lbs 07/01/2015 Blood Pressure 1: 128/74 Code : 8480-6 BMI: 29.8 Code : 53181-2 Heart Rate 1 : 62 bpm Height: 5'2" SpO2: 98% Weight: 163 lbs 02/25/2015 Blood Pressure 1: 142/92 Code : 8480-6 Blood Pressure 2: 138/90 Code: 8480-6 BMI: 29.1 Code: 68505-0 Heart Rate 1: 78 bpm Height: 5'2" SpO2: 98% Weight: 159 lbs 11/19/2014 Blood Pressure 1: 130/80 Code : 8480-6 BMI: 28.3 Code : 57171-0 Heart Rate 1 : 68 bpm Height: 5'2" Weight: 155 lbs 08/13/2014 Blood Pressure 1: 122/62 Code : 8480-6 BMI: 27.4 Code : 51868-9 Heart Rate 1 : 72 bpm Height: 5'2" Weight: 150 lbs 06/11/2014 Blood Pressure 1: 112/56 Code : 8480-6 BMI: 27.0 Code : 12036-2 Heart Rate 1 : 67 bpm Height: 5'2" SpO2: 98% Weight: 147 lbs 8 oz 04/16/2014 Blood Pressure 1: 120/62 Code : 8480-6 BMI: 26.7 Code : 76103-3 Heart Rate 1 : 68 bpm Height: 5'2" Weight: 146 lbs 03/12/2014 Blood Pressure 1: 132/82 Code : 8480-6 BMI: 27.1 Code : 13085-2 Heart Rate 1 : 64 bpm Height: 5'2" Weight: 148 lbs 02/26/2014 Blood Pressure 1: 104/50 Code : 8480-6 BMI: 25.8 Code : 54321-5 Heart Rate 1 : 64 bpm Height: 5'2" Weight: 141 lbs 11/27/2013 Blood Pressure 1: 122/68 Code : 8480-6 Heart Rate 1: 60 bpm Weight: 153 lbs 10/16/2013 Blood Pressure 1: 136/72 Code : 8480-6 BMI: 27.4 Code : 31201-5 Heart Rate 1 : 80 bpm Height: 5'2" Weight: 150 lbs 07/10/2013 Blood Pressure 1: 126/76 Code : 8480-6 BMI: 27.3 Code : 00788-2 Heart Rate 1 : 80 bpm Height: 5'2" Weight: 149 lbs 06/12/2013 Blood Pressure 1: 168/80 Code : 8480-6 BMI: 27.3 Code : 34467-4 Heart Rate 1 : 76 bpm Height: 5'2" Weight: 149 lbs 8 oz 02/13/2013 Blood Pressure 1: 108/72 Code : 8480-6 BMI: 27.4 Code : 94815-3 Heart Rate 1 : 80 bpm Height: 5'2" Weight: 150 lbs 01/06/2013 Blood Pressure 1: 126/62 Code : 8480-6 BMI: 27.6 Code : 17817-0 Heart Rate 1 : 76 bpm Height: [...] Code : 8480-6 BMI: 27.8 Code : 79563-1 Heart Rate 1 : 80 bpm Height: [...] Present Encounters Encounter Performer Location Codes Date ([id number]) 55167 EST. 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 PATIENT, LEVEL IV Diagnosis: Pseudobulbar affect[ICD10: F48.2] Diagnosis: Dementia with Lewy bodies[ICD10: G31.83] Allie Mcneill MD [facility] CPT-4: 86357 03/22/2017 ([id number]) 53873 EST. PATIENT, LEVEL IV Diagnosis: Mixed hyperlipidemia[ICD10: E78.2] Diagnosis: Dementia with Lewy bodies[ICD10: G31.83] Diagnosis: Major depressive disorder, recurrent, mild[ICD10: F33.0] Allie Mcneill MD, [facility] CPT-4: 87825 12/21/2016 ([id number]) 19932 EST. PATIENT, LEVEL IV Diagnosis: Dementia with Lewy bodies[ICD10: G31.83] Diagnosis: Mixed hyperlipidemia[ICD10: E78.2] Diagnosis: Encounter for immunization[ICD10: Z23] Diagnosis: Major depressive disorder, recurrent, mild[ICD10: F33.0] Allie Mcneill MD, [facility] CPT-4: 22143 09/21/2016 ([id number]) 01683 EST. PATIENT, LEVEL III Diagnosis: Encounter for immunization[ICD10: Z23] Diagnosis: Dementia with Lewy bodies[ICD10: G31.83] Diagnosis: Major depressive disorder, recurrent, mild[ICD10: F33.0] Allie Mcneill MD, [facility] CPT-4: 79466 06/22/2016 ([id number]) 23516 EST. PATIENT, LEVEL III Diagnosis: Mixed hyperlipidemia[ICD10: E78.2] Diagnosis: Dementia with Lewy bodies[ICD10: G31.83] Allie Mcneill MD, [facility] CPT-4: 67919 03/23/2016 ([id number]) 29753 EST. PATIENT, LEVEL IV Diagnosis: Dementia with Lewy bodies[ICD10: G31.83] Diagnosis: Other hallucinations[ICD10: R44.2] Diagnosis: Mixed hyperlipidemia[ICD10: E78.2] Allie Mcneill MD, [facility] CPT-4: 22076 12/16/2015 ([id number]) 02403 EST. PATIENT, LEVEL IV Diagnosis: Dementia with Lewy bodies[ICD10: G31.83] Diagnosis: Other hallucinations[ICD10: R44.2] Diagnosis: Mixed hyperlipidemia[ICD10: E78.2] Diagnosis: Encounter for immunization[ICD10: Z23] Allie Mcneill MD, [facility] CPT-4: 83012 09/16/2015 ([id number]) 74907 EST. PATIENT, LEVEL IV Diagnosis: HYPERLIPIDEMIA[ICD9: 272.4] Diagnosis: DEMEN NOS 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[ICD9: 294.20] Diagnosis: LEWY BODY DEMENTIA[ICD9: 331.82] Diagnosis: VACCIN FOR INFLUENZA[ICD9: V04.81] Allie Mcneill MD, [facility] CPT-4: 32323 07/01/2015 ([id number]) 86078 EST. PATIENT, LEVEL IV Diagnosis: HYPERLIPIDEMIA[ICD9: 272.4] Diagnosis: Dementia[ICD9: 294.20] Diagnosis: LEWY BODY DEMENTIA[ICD9: 331.82] Allie Mcneill MD, [facility] CPT-4: 60387 02/25/2015 ([id number]) 32727 EST. PATIENT, LEVEL IV Diagnosis: HYPERLIPIDEMIA[ICD9: 272.4] Diagnosis: Dementia[ICD9: 294.20] Diagnosis: LEWY BODY DEMENTIA[ICD9: 331.82] Allie Mcneill MD, [facility] CPT-4: 97239 11/19/2014 ([id number]) 20106 EST. PATIENT, LEVEL IV Diagnosis: HYPERLIPIDEMIA[ICD9: 272.4] Diagnosis: LEWY BODY DEMENTIA[ICD9: 331.82] Allie Mcneill MD, [facility] CPT-4: 19846 08/13/2014 ([id number]) 58392 EST. PATIENT, LEVEL IV Diagnosis: LEWY BODY DEMENTIA[ICD9: 331.82] Diagnosis: Psychosis[ICD9: 298.9] Allie Mcneill MD, [facility] CPT-4: 18461 06/11/2014 ([id number]) 91687 EST. PATIENT, LEVEL III Diagnosis: Lewy body dementia with behavioral disturbance[ICD9: 331.82] Diagnosis: Ulcer of gingiva[ICD9: 523.8] Shari Parada Allie Osito MD, [facility] CPT-4: 08427 04/16/2014 ([id number]) 36810 EST. PATIENT, LEVEL IV Diagnosis: Shingles[ICD9: 053.9] Diagnosis: Oral aphthae[ICD9: 528.2] Diagnosis: Yeast infection of the skin[ICD9: 112.3] Allie Mcneill MD, [facility] CPT-4: 65933 03/12/2014 ([id number]) 21059 EST. PATIENT, LEVEL IV Diagnosis: DEMEN NOS 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[ICD9: 294.20] Diagnosis: LEWY BODY DEMENTIA[ICD9: 331.82] Diagnosis: Impacted cerumen of both ears[ICD9: 380.4] Diagnosis: Weight loss[ICD9: 783.21] Diagnosis: Shingles rash[ICD9: 053.9] Allie Mcneill MD, [facility] CPT- 4: 08069 02/26/2014 ([id number]) 73258 EST. PATIENT, LEVEL IV Diagnosis: SENILE DELUSION[ICD9: 290.20] Diagnosis: LEWY BODY DEMENTIA[ICD9: 331.82] Diagnosis: HALLUCINATIONS[ICD9: 780.1] Diagnosis: PSYCHOSIS[ICD9: 298.9] Allie Mcneill MD, [facility] CPT-4: 30475 11/27/2013 ([id number]) 02658 EST. PATIENT, LEVEL IV Diagnosis: LEWY BODY DEMENTIA[ICD9: 331.82] Diagnosis: HALLUCINATIONS[ICD9: 780.1] Diagnosis: PSYCHOSIS[ICD9: 298.9] Allie Mcneill MD, [facility] CPT-4: 20784 10/16/2013 ([id number]) 15420 EST. PATIENT, LEVEL III Diagnosis: LEWY BODY DEMENTIA[ICD9: 331.82] Diagnosis: HALLUCINATIONS[ICD9: 780.1] Allie Mcneill MD, [facility] CPT- 4: 93580 07/10/2013 ([id number]) 73578 EST. PATIENT, LEVEL IV Diagnosis: LEWY BODY DEMENTIA[ICD9: 331.82] Diagnosis: HALLUCINATIONS[ICD9: 780.1] Diagnosis: Dehydration[ICD9: 276.51] Diagnosis: Dementia[ICD9: 294.20] Allie Mcneill MD, [facility] CPT-4: 10540 01/06/2013 30991 EST. PATIENT, LEVEL III Diagnosis: Candidiasis of breast[ICD9: 112.2] Diagnosis: Seborrheic keratosis[ICD9: 702.19] Diagnosis: Dry skin[ICD9: 782.9] Shari Parada [facility] CPT-4: 08176 08/08/2012 ([id number]) 59657 EST. PATIENT, LEVEL IV Diagnosis: LEWY BODY DEMENTIA[ICD9: 331.82] Diagnosis: HALLUCINATIONS[ICD9: 780.1] Allie Mcneill MD, [facility] CPT- 4: 77972 05/23/2012 ([id number] 88129 EST. PATIENT, LEVEL IV Diagnosis: HALLUCINATIONS[ICD9: 780.1] Diagnosis: LEWY BODY DEMENTIA[ICD9: 331.82] Allie Mcneill MD, [facility] CPT-4: 65730 04/04/2012 ([id number]) 80418 EST. PATIENT, LEVEL IV Diagnosis: Lewy body dementia with behavioral disturbance[ICD9: 331.82] Diagnosis: Hallucinations[ICD9: 780.1] Diagnosis: INSOMNIA IN OTHER DIS[ICD9: 327.01] Allie Mcneill MD, [facility] CPT-4: 76879 03/21/2012 Plan of Care Planned Activity Notes [...] current management. 02/28/2018 Appointment: Allie Mcneill WPtel: [address] [place], [place] [phone] (15 min) Moderate 02/28/2018 Patient Education: Patient [...] management. 11/22/2017 App[facility]ment[facility] [phone] [facility] (15 min) Moderate 11/22/2017 Patient Education: Patient Medication Summary Completed 11/22/2017 Appointment: [facility] [phone] [facility] (15 min) Moderate 11/15/2017 Visit Plan: Hypertension [...] months 08/16/2017 Appointment: [facility] [phone] [facility] (15 min) Moderate 08/16/2017 Patient Education: [...] level, symptoms. 05/17/2017 Appointment: Allie Mcneill WPtel: [phone] [facility] (15 min) Moderate 05/17/2017 Patient Education: Patient [...] at home. 04/25/2017 Appointment: [facility] [phone] [facility] [place] (15 min) Moderate 04/25/2017 Patient Education: Patient Medication Summary Completed 04/25/2017 Appointment: Allie Mcneill WPtel: [phone] [facility] [place] (15 min) Moderate 04/19/2017 Visit Plan: [...] taper. 03/22/2017 Appointment: Allie Mcneill WPtel: [phone] [facility] (15 min) Moderate 03/22/2017 Patient Education: Patient [...] current medications. 12/21/2016 Appointment: Allie Mcneill WPtel: [facility] (15 min) Moderate 12/21/2016 Patient Education: Patient [...] current medications. 09/21/2016 Appointment: Allie Mcneill WPtel: [facility] (15 min) Moderate 09/21/2016 Patient Education: Patient [...] current medications. 06/22/2016 Appointment: Allie Mcneill WPtel: [facility] (15 min) Moderate 06/22/2016 Patient Education: Patient [...] psychosis. 03/23/2016 Appointment: Allie Mcneill WPtel: [phone] [facility] (15 min) Moderate 03/23/2016 Patient Education: Patient [...] problem. 12/16/2015 [facility]ment[phone] ([facility]) Moderate 12/16/2015 Patient Education: [...] to medications 09/16/2015 Appointment: [facility]el[phone] (15 min) Moderate 09/16/2015 Patient Education: Patient [...] Risperdal for her underlying psychosis. 07/01/2015 Appointment: OsitoAllie mccoy [facility]Ptel[phone] Follow [facility] 07/01/2015 Patient Education: Patient Medication [...] 1 month then stop the Marinol as [place] has had resolution of her weight loss. [...] 1 month then stop the Marinol as [place] has had resolution of her weight loss. Seasonal allergies with nasal drainage -start aym 11/19/2014 Appointment: Allie Mcneill WPtel: [phone] [facility] Follow up 11/19/2014 Patient Education: Patient Medication Summary Completed 11/19/2014 Appointment: Allie Mcneill WPtel: [facility] Follow up 11/12/2014 Appointment: Allie Mcneill WPtel: [facility] Follow up 09/10/2014 Visit Plan: Hyperlipidemia - [...] for effectiveness. 08/13/2014 Appointment: Allie Mcneill WPtel: [facility] [place] Follow up 08/13/2014 Patient Education: Patient [...] this time. 06/11/2014 Appointment: Allie Mcneill WPtel: [address] [place], [place] [address] [place] Follow up 06/11/2014 Patient Education: Patient [...] 10 days. 03/12/2014 Appointment: Allie Mcneill WPtel: [facility] [place] Follow up 03/12/2014 Patient Education: Patient [...] considered contagious. 02/26/2014 Appointment: Allie Mcneill WPtel: [facility] [place] Follow up 02/26/2014 Patient Education: Patient Medication Summary Completed 02/26/2014 Appointment: Allie Mcneill WPtel: [address] [place], [place] [id number] [place] Follow up 02/04/2014 Appointment: Allie Mcneill WPtel: [address] [place], [place] [id number] [place] Follow up 01/19/2014 Visit Plan: Dementia [...] HELP AUGMENT PATIENT' S COMFORT AT THE GROUP HOME. 11/27/2013 Appointment: Allie Mcneill WPtel: [address] [place], [place] [id number] [place] Follow up 11/27/2013 Patient Education: Patient [...] not improve. 10/16/2013 Appointment: Allie Mcneill WPtel: [address] [place], [place] [id number] [place] Follow up 10/16/2013 Patient Education: Patient Medication Summary Completed 10/16/2013 Appointment: Shari Parada WPtel: [address] [place], [place] [id number] [place] Lab Draw 07/31/2013 Patient Education: Patient Medication Summary Completed 07/31/2013 Appointment: Allie Mcneill WPtel: [address] [place], [place] [id number] [place] Lab Draw 07/30/2013 Visit Plan: Lewy body dementia - symptoms improved on higher dose of risperdol - continue to monitor symptoms - family to call if hallucinations worsen again. 07/10/2013 Appointment: Allie Mcneill WPtel: [phone] [facility] Follow up 07/10/2013 Patient Education: Patient Medication [...] effecitveness. 06/12/2013 Appointment: Allie Mcneill WPtel: [phone] [facility] Follow up 06/12/2013 Patient Education: Patient Medication [...] medications. 02/13/2013 [phone] [facility] 02/13/2013 Patient Education: Patient Medication [...] UA. 01/06/2013 Appointment: [phone] Follow [facility] 01/06/2013 Patient Education: Patient [...] check UA. 09/19/2012 Appointment: Allie Mcneill WPtel: [facility] Established Patient Preventative visit 09/19/2012 Patient Education: Patient Medication Summary Completed 09/19/2012 Visit Plan: Candidiasis of breasts-discussed natural and expected course of this diagnosis and to alert me if sympotms do not follow expected course, or if any worse. Keep areas clean and dry. RX sent to patient' s pharmacy and instructed on use. Seborrheic lnbwjtdti-jzcolka-ptgrbgxoq eucerin cream as needed to back Dry jtdi-qofh-tkkaolpxf moisturizer such as eucerin to face-call if worsens 08/08/2012 Appointment: Shari Parada WPtel: [phone] [place] rash 08/08/2012 Patient Education: Patient Medication Summary Completed 08/08/2012 Appointment: Allie Mcneill WPtel: [facility] Injection 07/25/2012 Patient Education: Patient Medication Summary [...] rest. 05/23/2012 Appointment: [phone] [place] Follow up 05/23/2012 Patient Education: Patient Medication Summary Completed 05/23/2012 [facility]ment[phone] [place] Lab Draw 04/05/2012 Patient Education: Patient [...] dosing regimen. 04/04/2012 Appointment: Allie Mcneill WPtel: [address] [facility] [place] Follow up 04/04/2012 Patient Education: Patient Medication Summary Completed 04/04/2012 Visit Plan: Lewy Body Dementia - pt has been having hallucinations, auditory, visual, gustatory, she was recently in the hospital, then was transfered to a geriatric psychiatric facility in [place] for inpatient psych treatment. She was discharged [...] are opened. 03/21/2012 Appointment: Allie Mcneill WPtel[facility] [facility] Patient 03/21/2012 Patient Education: Patient [...] TO HELP AUGMENT PATIENT'S COMFORT AT THE GROUP HOME. . Hyperlipidemia - pt has been counseled [...] allergies with nasal drainage -start amy . Dementia with Lewy body - pt [...] transfered to a geriatric psychiatric facility in [place] for inpatient psych treatment. She was discharged [...] patient's pharmacy and instructed on use. Seborrheic ycepbgutd-oikjbur-rsqudmcnr eucerin cream as needed to back Dry wrlm-nmwx-qreupfzgg moisturizer such as eucerin to face-call if worsens . Lewy Body's Dementia - Pt with [...] pt is to be considered contagious. . Psychosis - increase Risperdal to 0.5mg [...]
[2018-10-02 18:42] LABS: BASOPHILS % (AUTO) 0 % (0-10); EOSINOPHILS # (AUTO) 0.1 10^3/uL (0.0-0.3); EOSINOPHILS % (AUTO) 2 % (0-10); HEMATOCRIT 37 % (35-52); LYMPHOCYTES # (AUTO) 1.9 X 10^3 (1.0-4.0); LYMPHOCYTES % (AUTO) 23 % (12-44); MEAN CORPUSCULAR HEMOGLOBIN 29 PG (25-34); MEAN CORPUSCULAR HGB CONC 32 G/DL (32-36); MEAN CORPUSCULAR VOLUME 91 FL (80-99); MEAN PLATELET VOLUME 10.3 FL (7.4-10.4); MONOCYTES # (AUTO) 0.8 X 10^3 (0.0-1.0); MONOCYTES % (AUTO) 10 % (0-12); NEUTROPHILS # (AUTO) 5.2 X 10^3 (1.8-7.8); NEUTROPHILS % (AUTO) 65 % (42-75); PLATELET COUNT 281 10^3/uL (130-400); RED BLOOD COUNT 4.08 10^6/uL (4.35-5.85); RED CELL DISTRIBUTION WIDTH 14.2 % (10.0-14.5)
[2018-10-02 18:43] LABS: BILIRUBIN,URINE NEGATIVE (NEGATIVE); CLARITY,URINE CLEAR; COLOR,URINE YELLOW; GLUCOSE, URINE (UA) NEGATIVE (NEGATIVE); KETONES,URINE NEGATIVE (NEGATIVE); LEUKOCYTE ESTERASE ,URINE 1+ (NEGATIVE); NITRITE,URINE NEGATIVE (NEGATIVE); PH,URINE 5 (5-9); PROTEIN,URINE NEGATIVE (NEGATIVE); UROBILINOGEN,URINE NORMAL (NORMAL)
[2018-10-02] MEDS ORDERED: IOHEXOL 350 MG/ML 100 ML (OMNIPAQUE 350) VIAL IV ONE (18:45)
[2018-10-02] MEDS ORDERED: NS 250 ML (IVPB) BAG IV ONE (18:45)
[2018-10-02] MEDS ORDERED: RECEIVED CONTRAST (Hold Metformin) IV SCH (18:45)
[2018-10-02 18:51] LABS: INR 1.1 (0.8-1.4); PROTHROMBIN TIME PATIENT 14.6 SEC (12.2-14.7)
[2018-10-02 18:56] LABS: BACTERIA,URINE FEW /HPF; RBC,URINE 0-2 /HPF
[2018-10-02 18:58] LABS: ALANINE AMINOTRANSFERASE 8 U/L (0-55); ALBUMIN 3.9 GM/DL (3.2-4.5); ALKALINE PHOSPHATASE 63 U/L (40-136); BILIRUBIN,TOTAL 0.2 MG/DL (0.1-1.0); BUN/CREATININE RATIO 11; CALCIUM 8.7 MG/DL (8.5-10.1); CARBON DIOXIDE 24 MMOL/L (21-32); CHLORIDE 105 MMOL/L (98-107); CREATINE KINASE 281 U/L (29-168); CREATININE SERUM 0.72 MG/DL (0.60-1.30); GFR ESTIMATED > 60; GLUCOSE 142 MG/DL (70-105); MAGNESIUM 2.3 MG/DL (1.8-2.4); POTASSIUM 3.8 MMOL/L (3.6-5.0); SODIUM 140 MMOL/L (135-145); TOTAL PROTEIN 6.8 GM/DL (6.4-8.2)
--- NOTE | 2018-10-02 19:05 | Diagnostic Imaging Report ---
PROCEDURE: CT head, face, and cervical spine without contrast. TECHNIQUE: Multiple contiguous axial images were obtained through the head, neck, and facial bones without the use of intravenous contrast. Sagittal and coronal reformations through the cervical spine and facial bones were also performed. INDICATION: Fall. Facial injury. COMPARISON: CTA head 04/18/2017. FINDINGS: CT head and maxillofacial: No CT evidence of territorial infarction. No intracranial hemorrhage, mass effect, hydrocephalus or extra-axial fluid collections. Moderate generalized cerebral and cerebellar parenchymal volume loss. Moderate confluent low attenuation changes in the deep white matter. The skull base and calvarium are intact. Mild mucosal thickening in the right maxillary sinus. Moderate leftward bowing of the nasal septum appears chronic. No maxillofacial fractures. Normal alignment of the temporomandibular joints. CT cervical spine: Normal alignment. Vertebral body heights preserved. No fractures. Moderate diffuse degenerative endplate changes. No high-grade spinal canal narrowing is evident on this non-intrathecal contrast exam. There is moderate to advanced bilateral neural foraminal narrowing at C3-C6 and on the left at C6-C7. Moderate atherosclerotic calcifications including the carotid bifurcations. The lung apices are clear. IMPRESSION: 1. No acute intracranial or cervical spine CT findings. No maxillofacial fractures. 2. Moderate generalized parenchymal volume loss and chronic small vessel ischemic change. 3. Moderate spondylotic changes result in scattered moderate to advanced neural foraminal narrowing. No high-grade spinal canal narrowing is evident on this non-intrathecal contrast exam. Dictated by: Dictated on workstation # [id number]
--- NOTE | 2018-10-02 19:12 | Diagnostic Imaging Report ---
INDICATION: Back pain, fall. COMPARISON: January 02, 2018. TECHNIQUE: Multiple contiguous axial CT images are obtained through the thoracolumbar spine without the use of intravenous contrast dated October 02, 2018. Sagittal and coronal reformatted images were reviewed. FINDINGS: Alignment of the thoracolumbar spine is well maintained. Besides endplate degenerative changes and a few scattered Schmorl's nodes, vertebral body heights are well maintained. Mild scattered disc space height loss without severe disc space height loss. No acute fracture or dislocation. No destructive osseous process. Scattered facet joint degenerative changes are present. No high-grade osseous central canal stenosis. Bilateral neural foraminal stenosis, greatest at L3/L4 and L4/L5 where it is moderate in severity. Calcified granuloma within the lungs. Bilateral interstitial opacities are present, particularly within the periphery of the lungs. Calcified mediastinal and hilar lymph nodes. The heart is enlarged. Tiny hiatal hernia. Calcified hepatic granuloma. Scattered vascular calcifications. IMPRESSION: No acute osseous abnormality with mild scattered degenerative changes. Evidence of chronic granulomatous disease. Cardiomegaly. Dictated by: Dictated on workstation # [id number]
[2018-10-02 19:17] LABS: CREATINE KINASE MB 1.6 NG/ML (<6.6); TSH (THYROID ANALYZER) 2.62 UIU/ML (0.35-4.94); VALPROIC ACID 24.3 UG/ML (50.0-100.0)
--- NOTE | 2018-10-02 19:35 | Diagnostic Imaging Report ---
EXAM: CHEST 1 VIEW, AP/PA ONLY INDICATION: Fall. Back pain. COMPARISON: CT chest also performed today. FINDINGS: Cardiomegaly. Mild diffuse interstitial and airspace opacities throughout both lungs. No focally dense consolidation, pleural effusion or pneumothorax. No acute osseous findings. IMPRESSION: 1. Cardiomegaly. 2. Nonspecific mild pulmonary opacities bilaterally appear at least partially chronic. Mild edema or infectious/inflammatory process is not excluded. Dictated by: Dictated on workstation # [id number]
--- NOTE | 2018-10-02 20:23 | Diagnostic Imaging Report ---
PROCEDURE: CT chest, abdomen, and pelvis with contrast. TECHNIQUE: Multiple contiguous axial images were obtained through the chest, abdomen, and pelvis after the administration of intravenous contrast. INDICATION: Fall, tenderness COMPARISON: 01/02/2018 FINDINGS: Calcified mediastinal and hilar lymph nodes are present. No pathologically enlarged lymph nodes within the chest. No aneurysmal dilatation of the thoracic aorta. The heart is enlarged. No pericardial effusion. No pleural effusion. Calcified granuloma are present within the lungs. Background interstitial and reticular opacities are present within the bilateral lungs, particularly within the periphery of the lungs. This is associated with mild geographic groundglass opacities within the lung bases. No pneumothorax. No acute osseous abnormality within the chest. 0.7 cm hypodensity within the right hepatic lobe. Additional 1.0 cm hypodensity within the left hepatic lobe. These hypodensities were not definitely seen on the prior examination, though the prior examination did not include intravenous contrast. The spleen is unremarkable. The adrenal glands are unremarkable. The pancreas is unremarkable. The gallbladder is unremarkable. The kidneys and ureters are unremarkable. Scattered vascular calcifications. No aneurysmal dilatation of the abdominal aorta. No evidence of acute appendicitis. The urinary bladder is unremarkable. The uterus is not visualized, likely surgically absent. No abnormal adnexal mass lesion. Focal mural thickening is identified within the mid transverse colon, best seen on series 2, image 69. This is associated with a 1.3 cm soft tissue density immediately superior to this location, possibly related to a lymph node which has increased in size since the prior exam. No bowel obstruction or pneumatosis. No additional adenopathy. No free air or free fluid. Left superior and inferior pubic rami fractures are present. Although these look subacute to chronic, this does appear to be a change since December 2017. Scattered osseous degenerative changes. IMPRESSION: Focal mural thickening within the mid transverse colon with apparent probable enlarging lymph node immediately superior to this location. Findings are concerning for malignancy with possible regional adenopathy. Recommend correlation with endoscopy. A couple of hypodensities are identified within the liver which are indeterminate, though these were not definitely present on prior imaging from December 2017. However, prior imaging did not include contrast. Findings could relate to metastatic disease, though additional etiologies such as cyst or hemangioma could be considered. Nondisplaced left superior and inferior pubic rami fractures. These appear chronic to subacute in nature, though these are new since December 2017. Mild background interstitial lung disease with associated evidence of chronic granulomatous disease. Cardiomegaly. Additional findings as described above. Results were given to Dr. Arzate in the [facility] ER at 8:10 p.m., by jessica (for NK). Dictated by: Dictated on workstation # [id number]
--- NOTE | 2018-10-02 20:24 | Diagnostic Imaging Report ---
INDICATION: Fall COMPARISON: 01/02/2018. TECHNIQUE: Three radiographs of the pelvis and left hip were obtained dated October 02, 2018. FINDINGS: Cortical irregularity is noted within the medial aspect of the left superior and inferior pubic rami. This appears new since the prior examination. No additional fracture identified. Contrast is seen within the urinary bladder and right kidney related to recent CT examination. The sacroiliac joints are intact. The pubic symphysis is intact. The left femoral head maintains its normal shape and contour. Mild degenerative changes within the bilateral hips. IMPRESSION: Essentially nondisplaced fracture involving the medial aspect of the left superior and inferior pubic rami. This does appear to be a change since December of 2017, though exact chronicity is uncertain. Therefore, this may be acute to subacute in nature. Mild scattered degenerative changes. Results were given to Dr. Arzate in the [facility] ER at 8:10 p.m., by jessica. Dictated by: Dictated on workstation # [id number]
[2018-10-02] MEDS ORDERED: KETOROLAC 30 MG/ML VIAL IVP ONE (20:30)
[2018-10-02] MEDS ORDERED: hydrALAZINE (APESOLINE) 20 MG/ML VIAL IV ONE (20:30)
--- NOTE | 2018-10-02 20:30 | ED Fall/Injury ---
General Chief Complaint: Trauma-Non Activation Stated Complaint: FALL Nursing Triage Note: PT HAD POSSIBLE FALL AT VT, NON WITNESSED PT HAS ABRASION TO UPPER LIP. PT HAS TENDERNESS TO L SIDE, PT HAS C-COLLAR IN PLACE Allergies and Home Medications Allergies Coded Allergies: No Known Drug Allergies (Unverified , 03/02/12) Home Medications Acetaminophen 500 Mg Tablet, 1,000 MG PO Q6H PRN for PAIN-MILD, (Reported) TAKES 2 (500MG) TABLETS Calcium Carbonate/Vitamin D3 1 Each Capsule, 1 CAP PO DAILY, (Reported) Cholecalciferol (Vitamin D3) 1,000 Unit Tablet, 2,000 UNIT PO DAILY, (Reported) TAKES 2 (1000 UNIT) TABLETS Citalopram Hydrobromide 20 Mg Tablet, 20 MG PO DAILY, (Reported) Clopidogrel Bisulfate 75 Mg Tablet, 75 MG PO DAILY, (Reported) Cyanocobalamin (Vitamin B-12) 500 Mcg Tablet, 500 MCG PO DAILY, (Reported) Dextromethorphan HBr 15 Mg/5 Ml Liquid, 10 ML PO Q4H PRN for COUGH, (Reported) Fluticasone Propionate 16 Gm [place].susp, 1 SPRAY NS BID, (Reported) Guaifenesin 400 Mg Tablet, 400 MG PO Q4H PRN for CONGESTION, (Reported) Lorazepam 0.5 Mg Tablet, 0.5 MG PO DAILY, (Reported) Losartan Potassium 50 Mg Tablet, 50 MG PO DAILY Prescribed by: NICOLE TSANG on 04/18/17 1117 Melatonin 3 Mg Tablet, 6 MG PO HS, (Reported) TAKES 2 (3MG) TABLETS Memantine HCl 10 Mg Tablet, 10 MG PO BID, (Reported) Pantoprazole Sodium 20 Mg Tablet.dr, 20 MG PO DAILY, (Reported) Risperidone 0.25 Mg Tablet, 0.25 MG PO HS, (Reported) Risperidone 0.5 Mg Tablet, 0.5 MG PO Q6H PRN for BEHAVIOR, (Reported) Rivastigmine 9.5 Mg Patch, 9.5 MG TD DAILY, (Reported) Past Utnaple-Qtypha-Tcffkb Hx Patient Social History Alcohol Use: Denies Use Recreational Drug Use: No Smoking Status: Never a Smoker 2nd Hand Smoke Exposure: No Recent Foreign Travel: No Contact w/Someone Who Travel: No Recent Infectious Disease Expo: No Recent Hopitalizations: No Physical Abuse: No Sexual Abuse: No Immunizations Up To Date Date of Pneumonia Vaccine: Jul 18, 2016 Seasonal Allergies Seasonal Allergies: No Past Medical History Surgeries: Yes Hysterectomy Respiratory: No Cardiac: Yes Hypertension Neurological: Yes Dementia Reproductive Disorders: Yes Female Reproductive Disorders: Denies Sexually Transmitted Disease: No HIV/AIDS: No Genitourinary: No UTI-Chronic Gastrointestinal: No Musculoskeletal: No Endocrine: No HEENT: No Loss of Vision: Bilateral Hearing Impairment: Denies Cancer: No Psychosocial: Yes Anxiety, Depression Integumentary: No Blood Disorders: No Adverse Reaction/Blood Tranf: No Family Medical History Hypertension Physical Exam Vital Signs Vital Signs - First Documented 10/02/18 18:13 Temp 97.2 Pulse 75 Resp 18 B/P (MAP) 185/77 (113) Pulse Ox 97 Capillary Refill : Less Than 3 Seconds Height, Weight, BMI Height: 5'3.00" Weight: 159lbs. 8.0oz. 72.442880kp; 28.3 BMI Method:Estimated Progress/Results/Core Measures Results/Orders Lab Results Laboratory Tests Test 10/02/18 18:24 10/02/18 18:30 10/02/18 18:33 Range/Units Glucometer 155 H 70-110 MG/DL Urine Color YELLOW Urine Clarity CLEAR Urine pH 5 5-9 Urine Specific [place] 1.025 H 1.016-1.022 Urine Protein NEGATIVE NEGATIVE Urine Glucose (UA) NEGATIVE NEGATIVE Urine Ketones NEGATIVE NEGATIVE Urine Nitrite NEGATIVE NEGATIVE Urine Bilirubin NEGATIVE NEGATIVE Urine Urobilinogen NORMAL NORMAL MG/DL Urine Leukocyte Esterase 1+ H NEGATIVE Urine RBC (Auto) 1+ H NEGATIVE Urine RBC 0-2 /HPF Urine WBC 2-5 /HPF Urine Squamous Epithelial Cells 5-10 /HPF Urine Crystals NONE /LPF Urine Bacteria FEW H /HPF Urine Casts NONE /LPF Urine Mucus NEGATIVE /LPF Urine Culture Indicated NO White Blood Count 8.0 4.3-11.0 10^3/uL Red Blood Count 4.08 L 4.35-5.85 10^6/uL Hemoglobin 12.0 11.5-16.0 G/DL Hematocrit 37 35-52 % Mean Corpuscular Volume 91 80-99 FL Mean Corpuscular Hemoglobin 29 25-34 PG Mean Corpuscular Hemoglobin Concent 32 32-36 G/DL Red Cell Distribution Width 14.2 10.0-14.5 % Platelet Count 281 130-400 10^3/uL Mean Platelet Volume 10.3 7.4-10.4 FL Neutrophils (%) (Auto) 65 42-75 % Lymphocytes (%) (Auto) 23 12-44 % Monocytes (%) (Auto) 10 0-12 % Eosinophils (%) (Auto) 2 0-10 % Basophils (%) (Auto) 0 0-10 % Neutrophils # (Auto) 5.2 1.8-7.8 X 10^3 Lymphocytes # (Auto) 1.9 1.0-4.0 X 10^3 Monocytes # (Auto) 0.8 0.0-1.0 X 10^3 Eosinophils # (Auto) 0.1 0.0-0.3 10^3/uL Basophils # (Auto) 0.0 0.0-0.1 10^3/uL Prothrombin Time 14.6 12.2-14.7 SEC INR Comment 1.1 0.8-1.4 Activated Partial Thromboplast Time 28 24-35 SEC Sodium Level 140 135-145 MMOL/L Potassium Level 3.8 3.6-5.0 MMOL/L Chloride Level 105 98-107 MMOL/L Carbon Dioxide Level 24 21-32 MMOL/L Anion Gap 11 5-14 MMOL/L Blood Urea Nitrogen 8 7-18 MG/DL Creatinine 0.72 0.60-1.30 MG/DL Estimat Glomerular Filtration Rate > 60 BUN/Creatinine Ratio 11 Glucose Level 142 H 70-105 MG/DL Calcium Level 8.7 8.5-10.1 MG/DL Corrected Calcium 8.8 8.5-10.1 MG/DL Magnesium Level 2.3 1.8-2.4 MG/DL Total Bilirubin 0.2 0.1-1.0 MG/DL Aspartate Amino Transf (AST/SGOT) 11 5-34 U/L Alanine Aminotransferase (ALT/SGPT) 8 0-55 U/L Alkaline Phosphatase 63 40-136 U/L Total Creatine Kinase 281 H 29-168 U/L Creatine Kinase MB 1.6 <6.6 NG/ML Troponin I < 0.30 <0.30 NG/ML B-Type Natriuretic Peptide 104.6 H <100.0 PG/ML Total Protein 6.8 6.4-8.2 GM/DL Albumin 3.9 3.2-4.5 GM/DL TSH [place] Testing 2.62 0.35-4.94 UIU/ML Valproic Acid (Depakene) Level 24.3 L 50.0-100.0 UG/ML My Orders Orders - NATHALIA PAGE DO Accucheck Stat ONCE (10/02/18 18:18) Saline Lock/Iv-Start (10/02/18 18:18) Ekg Tracing (10/02/18 18:18) Monitor-Rhythm Ecg Trace Only (10/02/18 18:18) Ct Head/Face/Cervical Wo (10/02/18 18:18) BNP (10/02/18 18:18) Cbc With Automated Diff (10/02/18 18:18) Comprehensive Metabolic Panel (10/02/18 18:18) Creatine Kinase (10/02/18 18:18) Creatine Kinase Mb (10/02/18 18:18) Magnesium (10/02/18 18:18) Protime With Inr (10/02/18 18:18) Partial Thromboplastin Time (10/02/18 18:18) Thyroid Analyzer (10/02/18 18:18) Troponin I (10/02/18 18:18) Ua Culture If Indicated (10/02/18 18:18) Valproic Acid (10/02/18 18:18) Chest 1 View, Ap/Pa Only (10/02/18 18:18) Dipht,Pertuss(Acell),Tet Adult (Boostrix (10/02/18 18:18) Ct Chest/Abdomen/Pelvis W (10/02/18 18:28) Ct Thoracic/Lumbar Spine Wo (10/02/18 18:28) Pelvis With Left Hip 2-3 Views (10/02/18 18:28) Straight Cath For Spec.-Adult (10/02/18 18:28) Iohexol Injection (Omnipaque 350 Mg/Ml 1 (10/02/18 18:45) Contrast Received (Contrast Received) (10/02/18 18:45) Ns (Ivpb) (Sodium Chloride 0.9%) (10/02/18 18:45) Ketorolac Injection (Toradol Injection) (10/02/18 20:30) Hydralazine Injection (Apresoline Inject (10/02/18 20:30) Medications Given in ED Current Medications Medications Dose Ordered Sig/Darwin Route Start Time Stop Time Status Last Admin Dose Admin Iohexol 100 ml ONCE ONCE IV 10/02/18 18:45 10/02/18 19:07 DC 10/02/18 18:54 100 ML Sodium Chloride 250 ml ONCE ONCE IV 10/02/18 18:45 10/02/18 19:07 DC 10/02/18 18:54 80 ML Vital Signs/I&O 10/02/18 18:13 Temp 97.2 Pulse 75 Resp 18 B/P (MAP) 185/77 (113) Pulse Ox 97 Blood Pressure Mean: 113 FSBG Bedside Testing Finger Stick Blood Glucose: 155 Blood Glucose Action Taken: REPORTED TO DR. Departure Impression Primary Impression: S/P UNWITNESSED FALL VS SYNCOPE Additional Impressions: Contusion of face Lip abrasion HEAD INJURY WITH UNKNOWN LOSS OF CONSCIOUSNESS LEFT CHEST AND ABDOMEN CONTUSION Fracture of left pelvis ABNORMAL FINDING ON ABDOMEN CT SCAN Ifpzxgboqk-qfcravdov-hdtbpki (DPT) vaccination administered at current visit Uncontrolled hypertension Dementia Disposition: 03 XFER SNF Condition: Stable Departure-Patient Inst. Referrals: BRADEN MOELLER MD (PCP/Family) Primary Care Physician Patient Instructions: Concussion, Adult (DC), Contusion (DC), High Blood Pressure (DC), Pelvic Fracture (DC), Preventing Falls in the Older Adult, Skin Abrasions (DC) Add. Discharge Instructions: CONTINUE YOUR REGULAR MEDICATIONS PRESCRIBED TYLENOL 1 GRAM EVERY 6 HOURS NEEDED FOR PAIN IBUPROFEN 600 MG EVERY 6 HOURS NEEDED FOR PAIN FOLLOW UP WITH YOUR DR IN 3-4 DAYS FOR FURTHER CARE All discharge instructions reviewed with patient and/or family. Voiced understanding. NATHALIA PAGE DO Oct 02, 2018 20:30
[2018-10-02] MEDS ORDERED: TETANUS,DIPTH,PERTUSS P/F (BOOSTRIX) 0.5 ML VIAL IM ONE (20:57)
[2018-10-02 22:13] VITALS: BP 128/58
== END 2018-10-02 22:13 ==
LOC: EDUNIT# 18:12 → ER 18:14
DX: S09.90XA Unspecified injury of head, initial encounter (principal); S20.212A Contusion of left front wall of thorax, initial encounter; S30.1XXA Contusion of abdominal wall, initial encounter; S00.83XA Contusion of other part of head, initial encounter; S00.511A Abrasion of lip, initial encounter; R93.5 Abnormal findings on diagnostic imaging of other abdominal regions, including retroperitoneum; I10 Essential (primary) hypertension; F03.90 Unspecified dementia, unspecified severity, without behavioral disturbance, psychotic disturbance, mood disturbance, and anxiety; F41.9 Anxiety disorder, unspecified; F32.9 Major depressive disorder, single episode, unspecified; Z87.440 Personal history of urinary (tract) infections; Z79.02 Long term (current) use of antithrombotics/antiplatelets; Z23 Encounter for immunization; Z79.51 Long term (current) use of inhaled steroids; Z90.710 Acquired absence of both cervix and uterus; W19.XXXA Unspecified fall, initial encounter
CPT/HCPCS: 36415; 51701; 70450; 70486; 71045; 71260; 72125; 72128; 72131; 74177; 80053; 80164; 81000; 82550; 82553; 82962; 83735; 83880; 84443; 84484; 85025; 85610; 85730; 90471; 90715; 93005; 93041; 96374; 96375

== ENCOUNTER 2018-10-26 02:57 | Emergency (ER) | payer MEDICARE, MEDICAID | END 2018-10-26 06:39 | disposition short-term general hospital (02) | LOC: ER 02:57 ==

== ENCOUNTER 2019-10-08 18:59 | Emergency (ER) | payer MEDICARE, MEDICAID ==
[~2019-10-08 18:59] MED LIST changes: -CYAN500T2 PO; +CYAN500T62 PO; +LOSA50TA63 PO; -LOSA50TA7 PO
--- NOTE | 2019-10-08 19:05 | ED Fall/Injury ---
General Stated Complaint: HEAD INJURY Source: patient, EMS Exam Limitations: clinical condition (dementia) History of Present Illness Date Seen by Provider: Oct 08, 2019 Time Seen by Provider: 18:51 Initial Comments Patient resents to ER by EMS from [facility] with chief complaint that about 6:00 this evening she fell forward out of her chair striking the back of another chair against her forehead. The bleeding was easily stopped. She has small laceration on her forehead. She did not lose consciousness and had no vomiting. At baseline she only will speak one word at most. She has dementia. She does not contribute to her history. She is not on blood thinners per paperwork that accompanies her from the detention. She did very little medicine routinely. She does not endorse any pain on palpation or examination. She is not on blood thinners or Plavix anymore. Allergies and Home Medications Allergies Coded Allergies: No Known Drug Allergies (Unverified , 03/02/12) Home Medications Acetaminophen 500 Mg Tablet, 1,000 MG PO Q6H PRN for PAIN-MILD, (Reported) TAKES 2 (500MG) TABLETS Calcium Carbonate/Vitamin D3 1 Each Capsule, 1 CAP PO DAILY, (Reported) Cholecalciferol (Vitamin D3) 1,000 Unit Tablet, 2,000 UNIT PO DAILY, (Reported) TAKES 2 (1000 UNIT) TABLETS Citalopram Hydrobromide 20 Mg Tablet, 20 MG PO DAILY, (Reported) Clopidogrel Bisulfate 75 Mg Tablet, 75 MG PO DAILY, (Reported) Cyanocobalamin (Vitamin B-12) 500 Mcg Tablet, 500 MCG PO DAILY, (Reported) Dextromethorphan HBr 15 Mg/5 Ml Liquid, 10 ML PO Q4H PRN for COUGH, (Reported) Fluticasone Propionate 16 Gm [place].susp, 1 SPRAY NS BID, (Reported) Guaifenesin 400 Mg Tablet, 400 MG PO Q4H PRN for CONGESTION, (Reported) Lorazepam 0.5 Mg Tablet, 0.5 MG PO DAILY, (Reported) Losartan Potassium 50 Mg Tablet, 50 MG PO DAILY Prescribed by: NICOLE TSANG on 04/18/17 1117 Melatonin 3 Mg Tablet, 6 MG PO HS, (Reported) TAKES 2 (3MG) TABLETS Memantine HCl 10 Mg Tablet, 10 MG PO BID, (Reported) Pantoprazole Sodium 20 Mg Tablet.dr, 20 MG PO DAILY, (Reported) Risperidone 0.25 Mg Tablet, 0.25 MG PO HS, (Reported) Risperidone 0.5 Mg Tablet, 0.5 MG PO Q6H PRN for BEHAVIOR, (Reported) Rivastigmine 9.5 Mg Patch, 9.5 MG TD DAILY, (Reported) Patient Home Medication List Home Medication List Reviewed: Yes Review of Systems Review of Systems Constitutional: No chills, No diaphoresis Eyes: Denies Blindness, Denies Blurred Vision Ears, Nose, Mouth, Throat: denies ear pain, denies ear discharge Respiratory: No cough, No short of breath Cardiovascular: No chest pain, No edema Gastrointestinal: No abdominal pain, No constipation, No diarrhea Genitourinary: No discharge, No dysuria Musculoskeletal: No back pain, No joint pain Psychiatric/Neurological: Denies Headache, Denies Numbness All Other Systems Reviewed Negative Unless Noted: No Past Hsvfsha-Braqgg-Eejqcc Hx Patient Social History Alcohol Use: Denies Use Recreational Drug Use: No Smoking Status: Never a Smoker 2nd Hand Smoke Exposure: No Recent Hopitalizations: No Immunizations Up To Date Tetanus Booster (TDap): Unknown Date of Pneumonia Vaccine: Jul 18, 2016 Seasonal Allergies Seasonal Allergies: No Past Medical History Surgeries: Yes Hysterectomy Respiratory: No Cardiac: Yes Hypertension Neurological: Yes Dementia Reproductive Disorders: Yes Female Reproductive Disorders: Denies 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 8.0oz. [id number]; 28.3 BMI Method:Estimated General Appearance: WD/WN, no apparent distress HEENT: PERRL/EOMI, normal ENT inspection, TMs normal, pharynx normal, other Neck: non-tender, full range of motion, normal inspection Cardiovascular: normal peripheral pulses, regular rate, rhythm Respiratory: chest non-tender, lungs clear, normal breath sounds, no respirator y distress, no accessory muscle use Peripheral Pulses: 2+ Dorsalis Pedis (R), 2+ Left Dors-Pedis (L), 2+ Radial Pulses (R), 2+ Radial Pulses (L) Gastrointestinal: normal bowel sounds, non tender, soft, no organomegaly Neurologic/Psychiatric: alert, normal mood/affect, oriented x 3 Skin: normal color, warm/dry, other (3 cm laceration superficial to subcutaneous tissue in about 1 cm middle of the forehead) Brenda Coma Score Best Eye Response: (4) Open Spontaneously Best Verbal Response: (3) Inappropriate Words (her baseline) Best Motor Response: (5) Localizes to Pain Procedures/Interventions Wound Location: Face (midline forehead) Other Wound Location Midline forehead Wound Length (cm): 3 Wound's Depth, Shape: superficial Wound Explored: clean Irrigated w/ Saline (ccs): 30 Betadine Prep?: Yes (chlorhexidine) Other Closure Supply: Wound Adhesive Progress Clean the wound with sterile saline and chlorhexidine and reapproximated skin edges and placed direct pressure and then 2 layers of cyanoacrylate. Wound was hemostatic. Patient tolerated procedure well. Progress/Results/Core Measures Results/Orders My Orders Orders - ELIZABETH REAL Ct Head/Cervical Spine Wo (10/08/19 19:03) Progress Progress Note #1: Time: 19:47 Progress Note Clean the site with chlorhexidine plan to get a CT of the head and C-spine. If this is negative we can clear the c-collar and stitch the wound closed. Progress Note #2: Time: 19:50 Progress Note C-collar cleared. Diagnostic Imaging Diagonstic Imaging: CT (without IV contrast) Plain Films/CT/US/NM/MRI: c-spine, head Comments NAME: RUPALI BOWDEN [facility] REC#: [id number] PT STATUS: REG ER : 1930 PHYSICIAN: ELIZABETH REAL MD ADMIT DATE: 10/08/19/ER Draft Date of Exam:10/08/19 CT HEAD/CERVICAL SPINE WO PROCEDURE: CT head and CT cervical spine without contrast. TECHNIQUE: Multiple contiguous axial images were obtained through the brain and cervical spine without the use of intravenous contrast. Sagittal and coronal reformations through the cervical spine were then performed. Auto Exposure Controls were utilized during the CT exam to meet ALARA standards for radiation dose reduction. INDICATION: Fall, head injury COMPARISON: 10/02/2018 CT head: There is age-related cerebral volume loss and microvascular changes. There is no focus of acute ischemia or hemorrhage. No extra-axial fluid collection is seen. There is no skull fracture. The mastoids are chronically poorly aerated but stable. There is advanced sinus disease in the ethmoids and sphenoids and visualized maxillary sinuses. IMPRESSION: 1. No acute intracranial abnormality 2. Sinus disease. CT cervical spine: Alignment is abnormal. There is no subluxation or fracture. No osseous lesion is seen. Degenerative changes are present and are stable. IMPRESSION: No traumatic malalignment or fracture. Dictated on workstation # [id number] Dict: 10/08/191934 Trans: 10/08/191945 [facility]LY [facility], 1928–[id number] Interpreted by: DEAN MCKEON Electronically signed by: Reviewed: Reviewed by Me Departure Impression Primary Impression: Fall Qualified Codes: W19.XXXA - Unspecified fall, initial encounter Additional Impression: Laceration of forehead without complication Qualified Codes: S01.81XA - Laceration without foreign body of other part of head, initial encounter Disposition: HOME, SELF-CARE Condition: Stable Departure-Patient Inst. Decision time for Depature: 20:25 Referrals: ABRIL FAM MD (PCP) Primary Care Physician TONY MUNIZ APRN (Family) Primary Care Physician Patient Instructions: Laceration Repair With Glue (DC) Add. Discharge Instructions: Ice pack for 20 minutes every 4 hours as needed for swelling or pain. Tylenol as appropriate. The glue will fall off on its own over the next 7-10 days. Showers and bathing is appropriate. Keep the site clean with regular soap and water or shampoo etc. ELIZABETH REAL Oct 08, 2019 19:05
--- NOTE | 2019-10-08 19:48 | Diagnostic Imaging Report ---
PROCEDURE: CT head and CT cervical spine without contrast. TECHNIQUE: Multiple contiguous axial images were obtained through the brain and cervical spine without the use of intravenous contrast. Sagittal and coronal reformations through the cervical spine were then performed. Auto Exposure Controls were utilized during the CT exam to meet ALARA standards for radiation dose reduction. INDICATION: Fall, head injury COMPARISON: 10/02/2018 CT head: There is age-related cerebral volume loss and microvascular changes. There is no focus of acute ischemia or hemorrhage. No extra-axial fluid collection is seen. There is no skull fracture. The mastoids are chronically poorly aerated but stable. There is advanced sinus disease in the ethmoids and sphenoids and visualized maxillary sinuses. IMPRESSION: 1. No acute intracranial abnormality 2. Sinus disease. CT cervical spine: Alignment is abnormal. There is no subluxation or fracture. No osseous lesion is seen. Degenerative changes are present and are stable. IMPRESSION: No traumatic malalignment or fracture. Dictated by: Dictated on workstation # [id number]
== END 2019-10-08 20:50 | disposition home or self-care (01) ==
LOC: EDUNIT# 18:59 → ER 19:00
DX: S01.81XA Laceration without foreign body of other part of head, initial encounter (principal); F03.90 Unspecified dementia, unspecified severity, without behavioral disturbance, psychotic disturbance, mood disturbance, and anxiety; I10 Essential (primary) hypertension; F41.9 Anxiety disorder, unspecified; F32.9 Major depressive disorder, single episode, unspecified; Z79.02 Long term (current) use of antithrombotics/antiplatelets; Z87.440 Personal history of urinary (tract) infections; Z79.51 Long term (current) use of inhaled steroids; Z90.710 Acquired absence of both cervix and uterus; V00.811A Fall from moving wheelchair (powered), initial encounter; W22.8XXA Striking against or struck by other objects, initial encounter
CPT/HCPCS: 70450; 72125